=== PATIENT | female | born 1975 | race Caucasian/White ===

== ENCOUNTER 2020-01-02 05:07 | Emergency (ER) | payer MEDICAID ==
[~2020-01-02] VITALS: Ht 175.3 cm; Wt 63.6 kg
[2020-01-02 05:12] VITALS: BP 115/75
[2020-01-02] MEDS ORDERED: acetaminophen 325mg tablet PO ONE (06:15)
== END 2020-01-02 06:30 | disposition home or self-care (01) ==
LOC: ER 05:08
DX: S16.1XXA Strain of muscle, fascia and tendon at neck level, initial encounter (principal); S00.81XA Abrasion of other part of head, initial encounter; F79 Unspecified intellectual disabilities; F20.9 Schizophrenia, unspecified; W06.XXXA Fall from bed, initial encounter; Y93.89 Activity, other specified; Y92.89 Other specified places as the place of occurrence of the external cause; Y99.8 Other external cause status
CPT/HCPCS: 70450; 72125; 99285

== ENCOUNTER 2021-02-22 18:12 | Emergency (ER) | payer MEDICAID ==
[~2021-02-22] VITALS: Ht 167.6 cm; Wt 65.6 kg
[2021-02-22 18:15] VITALS: BP 163/54
[2021-02-22] MEDS ORDERED: TETanus/Pertussis (Acell)/Diphther VAC/PF (Tdap-Adult) 0.5ml syringe IMVAC ONE (18:20)
[2021-02-22] MEDS ORDERED: LIDOcaine 1% w/epiNEPHrine 1:200,000 30ml vial IJ ONE (20:35)
[2021-02-22] MEDS ORDERED: LIDOcaine 1% W/epiNEPHrine 1:200,000 10ml vial IJ ONE (20:35)
[2021-02-22] MEDS ORDERED: bacitracin 15gm ointment TP ONE (20:35)
[2021-02-22] MEDS ORDERED: CEPH250T PO (20:55)
== END 2021-02-22 21:15 | disposition home or self-care (01) ==
LOC: ER 18:12
DX: L03.116 Cellulitis of left lower limb (principal); F20.9 Schizophrenia, unspecified
CPT/HCPCS: 73630; 90715; 99283

== ENCOUNTER 2022-02-09 02:23 | Emergency (ER) | payer MEDICAID ==
[~2022-02-09] VITALS: Ht 152.4 cm; Wt 77.4 kg
[2022-02-09 04:10] LABS: BASOPHILS % (AUTO) 0.6 % (0-1); EOSINOPHILS # (AUTO) 0.1 X10'3 (0-0.9); EOSINOPHILS % (AUTO) 1.3 % (0-6); HEMATOCRIT 39.2 % (35.0-45.0); LYMPHOCYTES # (AUTO) 1.3 X10'3 (1.1-4.8); LYMPHOCYTES % (AUTO) 16.5 % (21-51); MEAN CORPUSCULAR HEMOGLOBIN 30.2 PG (27.0-31.0); MEAN CORPUSCULAR HGB CONC 33.1 g/dL (33.0-36.5); MEAN CORPUSCULAR VOLUME 91.3 FL (78-98); MEAN PLATELET VOLUME 9.7 FL (7.4-10.4); MONOCYTES # (AUTO) 0.5 X10'3 (0-0.9); MONOCYTES % (AUTO) 5.7 % (2-12); NEUTROPHILS % (AUTO) 75.9 % (42-75); PLATELET COUNT 152 X10'3 (140-440); RED CELL DISTRIBUTION WIDTH 12.7 % (11.5-14.5); WHITE BLOOD COUNT 7.9 X10'3 (4.5-11.0)
[2022-02-09 04:11] LABS: URINE HCG NEGATIVE (NEG)
[2022-02-09 04:24] LABS: ALANINE AMINOTRANSFERASE 25 U/L (12-78); ALBUMIN 3.9 G/DL (3.4-5.0); ALKALINE PHOSPHATASE 63 IU/L (46-116); ANION GAP 7 (8-16); ASPARTATE AMINO TRANSFERASE 18 U/L (10-37); BILIRUBIN,TOTAL 0.2 MG/DL (0.1-1.0); BLOOD UREA NITROGEN 14 MG/DL (7-18); BUN/CREATININE RATIO 23.7 (6.6-38.0); CALCIUM 9.7 MG/DL (8.5-10.1); CHLORIDE 103 MMOL/L (99-107); CREATININE 0.59 MG/DL (0.40-0.90); GLUCOSE 104 MG/DL (70-104); POTASSIUM 3.9 MMOL/L (3.5-5.1); SODIUM 141 MMOL/L (135-145); TOTAL CARBON DIOXIDE 30.9 MMOL/L (24-32); TOTAL PROTEIN 7.8 G/DL (6.4-8.2); eGFR > 90 ML/MIN
[2022-02-09 04:27] LABS: URINE AMPHETAMINE SCREEN NEGATIVE (Neg); URINE BARBITUATE SCREEN NEGATIVE (Neg); URINE BENZODIAZEPINES SCREEN NEGATIVE (Neg); URINE CANNABINOID SCREEN NEGATIVE (Neg); URINE COCAINE SCREEN NEGATIVE (Neg); URINE METHADONE SCREEN NEGATIVE (Neg); URINE OPIATE SCREEN NEGATIVE (Neg); URINE PHENCYCLIDINE SCREEN NEGATIVE (Neg)
[2022-02-09 04:33] LABS: ETHANOL < 0.010 GM/DL (0.0-0.010)
--- NOTE | 2022-02-09 04:44 | NUR ---
Pt reluctant to believe it is 0445 she is in the hallway hollaring and being beligerant with staff. Staff trying to convince her that it this time and she said she wants to leave. She refuses to stay in her room. Pt placed into her room and sitter placed at doorway. She is standing in the corner.
[2022-02-09] MEDS ORDERED: LORazepam 2 mg/ml vial IM ONE ×3 (04:50→16:40)
[2022-02-09] MEDS ORDERED: diphenhydrAMINE 50 mg/ml inj IM ONE (04:50)
[2022-02-09] MEDS ORDERED: haloperidol lactate 5mg/ml inj IM ONE ×3 (04:50→16:40)
--- NOTE | 2022-02-09 05:54 | NUR ---
faxed records to [facility]
[2022-02-09 06:34] LABS: CLARITY,URINE CLEAR (Clear); COLOR,URINE YELLOW (Yellow); GLUCOSE, URINE NEGATIVE (Neg); KETONES,URINE NEGATIVE (Neg); LEUKOCYTE ESTERASE ,URINE NEGATIVE (Neg); NITRITES, URINE NEGATIVE (Neg); OCCULT BLOOD,URINE NEGATIVE (Neg); PH,URINE 6.5 (4.8-8.0); PROTEIN,URINE NEGATIVE (Neg); UROBILINOGEN,URINE 0.2 E.U/dL (0.2-1.0)
--- NOTE | 2022-02-09 06:39 | NUR ---
tech moved pt over [facility] to [facility], tech placed pt on vitals machine. 126/86, HR 78, SPO 93%
--- NOTE | 2022-02-09 06:40 | NUR ---
Pt. is calm now and all restraints removed. pt. transfered to bed bed 22.
[2022-02-09 06:42] LABS: UA COLLECTION TYPE CLN CATCH MIDSTREAM
--- NOTE | 2022-02-09 06:53 | NUR ---
TECH INVENTORIED PT BELONGINGS AND PLACED THEM IN ROOM 27 FOR SAFE KEEPING, NO VALUABLES WERE PLACED IN THE REGISTRATION SAFE.
--- NOTE | 2022-02-09 07:00 | NUR ---
Pt. asleep on left side. Respirations evena and unlabored at 18.
--- NOTE | 2022-02-09 08:17 | NUR ---
tech faxed for a late tray for pt [id number]
--- NOTE | 2022-02-09 08:26 | NUR ---
Pt. awake and drinking coffee and eating jello.
--- NOTE | 2022-02-09 09:28 | NUR ---
RN received phone call from pt.'s boiling house oiler Stewart ([phone]). Pt. lives at [facility] in [place]. Per Stewart, pt.'s behavior has become increasingly eratic for the past two weeks. Pt.'s PO medications were being reduced in order to restart pt. on Invega Susteina injections by her mental health provider. Per Stewart, pt. awoke at 01:20 and began yelling and screaming at staff and threatening to kill herself and others and throwing things and so [employer] was called and pt. brought to [facility].
--- NOTE | 2022-02-09 09:32 | NUR ---
RN awaiting fax from pt.'s warehouse laborer Stewart regarding medication reconcilation.
--- NOTE | 2022-02-09 10:30 | NUR ---
RN contacted pt.'s longterm and requested her soft cervical collar be brought in for pt. to wear while hospitalized, RN informed that it would eventually be brought in.
[2022-02-09] MEDS ORDERED: MULT-1085 PO (10:49)
[2022-02-09] MEDS ORDERED: MONT-40 PO (10:49)
[2022-02-09] MEDS ORDERED: LORA2TAB96 PO ×2 (10:49)
[2022-02-09] MEDS ORDERED: FLUV100T21 PO (10:49)
[2022-02-09] MEDS ORDERED: ACET-890 PO (10:49)
[2022-02-09] MEDS ORDERED: BISA10SU11 RC (10:49)
[2022-02-09] MEDS ORDERED: HONE44PA TOP (10:49)
[2022-02-09] MEDS ORDERED: DOCU100C40 PO (10:49)
[2022-02-09] MEDS ORDERED: LAMO200T2 PO (10:49)
[2022-02-09] MEDS ORDERED: PROT480P PO (10:49)
[2022-02-09] MEDS ORDERED: ACET-1025 PO (10:49)
[2022-02-09] MEDS ORDERED: SIMV-342 PO (10:49)
[2022-02-09] MEDS ORDERED: MELA5TAB14 PO (10:49)
[2022-02-09] MEDS ORDERED: IBUP-1984 PO (10:49)
[2022-02-09] MEDS ORDERED: POLY17PO10 PO (10:49)
[2022-02-09] MEDS ORDERED: MAGN400O6 PO (10:49)
[2022-02-09] MEDS ORDERED: ALBU18HF2 INH (10:49)
[2022-02-09] MEDS ORDERED: ACET-896 PO (10:49)
[2022-02-09] MEDS ORDERED: ZINC113C10 TOP (10:49)
[2022-02-09] MEDS ORDERED: ASCO500T19 PO (10:49)
[2022-02-09] MEDS ORDERED: [UNRECOGNIZED DRUG - CODE] PO (10:49)
[2022-02-09] MEDS ORDERED: FERR325T28 PO (10:49)
[2022-02-09] MEDS ORDERED: LACT1CAP65 PO (10:49)
[2022-02-09] MEDS ORDERED: CARB15DR91 EACH EAR (10:49)
[2022-02-09] MEDS ORDERED: TRAZ-251 PO (10:49)
[2022-02-09] MEDS ORDERED: SENN8.6T19 PO (10:49)
[2022-02-09] MEDS ORDERED: UMEC1DIS (10:49)
[2022-02-09] MEDS ORDERED: BENZ2TAB65 PO (10:49)
[2022-02-09] MEDS ORDERED: VORT5TAB PO (10:49)
[2022-02-09] MEDS ORDERED: QUET-1 PO (10:49)
[2022-02-09] MEDS ORDERED: QUET300T2 PO (10:49)
--- NOTE | 2022-02-09 11:11 | NUR ---
med rec completed and faxed to pharmacy
[2022-02-09] MEDS ORDERED: guaiFENesin 200 MG/10 ML oral syrup UD cup PO PRN (11:30)
[2022-02-09] MEDS ORDERED: carbamide peroxide 15ml bottle EACH EAR PRN (11:30)
[2022-02-09] MEDS ORDERED: ACET-2006 PO (11:32)
[2022-02-09] MEDS ORDERED: nicotine 21mg patch - 24 hr TD ONE (11:35)
[2022-02-09] MEDS ORDERED: LORazepam 1 MG tablet PO PRN (12:00)
[2022-02-09] MEDS ORDERED: albuterol 2.5 MG/3 ML nebule NEB PRN (12:00)
[2022-02-09] MEDS ORDERED: zinc oxide ointment 30gm tube TP PRN (12:50)
[2022-02-09] MEDS: JUVEN Shake w/Arg/Glut/Ca2+Bmb (Juven 19.3gm) pkt 240ml PO SCH ×2 (13:00→18:11)
[2022-02-09] MEDS ORDERED: JUVEN Shake w/Arg/Glut/Ca2+Bmb (Juven 19.3gm) pkt 240ml PO SCH (13:00)
[2022-02-09] MEDS: quetiapine 100mg tablet PO SCH (13:05)
--- NOTE | 2022-02-09 13:30 | NUR ---
Wound care done on pt.'s left cheek wound and left great toe. Scant bloody drainage noted. Toe left open to air and cheek covered with gauze and bandaid.
[2022-02-09] MEDS: LORazepam 1 MG tablet PO PRN (14:27)
--- NOTE | 2022-02-09 14:35 | NUR ---
Pt. becoming agitated, stating, "I want out of here! I want to smoke a cigarette!" (Pt. already given nicotine patch 21mg). Pt. given PRN Ativan 2mg po.
--- NOTE | 2022-02-09 15:18 | NUR ---
RN informed by [facility] social service director that pt. will be discharged back to [facility]. RN called [facility] and spoke with Donnie and was informed that [facility] will not except the pt. back due to pt.'s threats against other patients at the facility. RN updated [facility] social service director.
--- NOTE | 2022-02-09 19:04 | NUR ---
The patient is up and restless. She is one to one with the staff. She is easily agitated. She is tryign to leave the unit and go out and smoke.
[2022-02-09] MEDS: ferrous sulfate 325mg tablet PO SCH (19:45)
[2022-02-09] MEDS: LORazepam 1 MG tablet PO SCH (19:45)
[2022-02-09] MEDS: sennosides 8.6mg tablet PO SCH (19:45)
[2022-02-09] MEDS: benztropine 1mg tablet PO SCH (19:45)
[2022-02-09] MEDS ORDERED: docusate sod 100mg capsule PO SCH (20:00)
[2022-02-09] MEDS: docusate sod 250mg capsule PO SCH ×2 (20:00→20:08)
[2022-02-09] MEDS: ascorbic acid 500mg tablet PO SCH (20:08)
[2022-02-09] MEDS: Melatonin 3mg tablet PO SCH (20:08)
[2022-02-09] MEDS: vortioxetine HBr tablet 5 MG TABLET PO SCH (20:09)
[2022-02-09] MEDS: traZODone 50mg tablet PO SCH (20:09)
[2022-02-09] MEDS: polyethylene glycol 3350 17gm powd pack PO SCH (20:10)
[2022-02-09] MEDS: montelukast 10mg tablet PO SCH (20:10)
[2022-02-09] MEDS: lamoTRIgine 100mg tablet PO SCH (20:10)
[2022-02-09] MEDS: quetiapine fumarate ER 300mg tablet PO SCH (20:11)
[2022-02-09] MEDS: fluvoxamine 25 MG tablet PO SCH (20:12)
--- NOTE | 2022-02-09 20:42 | NUR ---
The patient currently resting on his bed.
--- NOTE | 2022-02-09 21:35 | NUR ---
The patient appears to be sleeping
--- NOTE | 2022-02-09 22:52 | NUR ---
The patient appears to be sleeping
--- NOTE | 2022-02-10 00:33 | NUR ---
The patient appears to be sleeping
--- NOTE | 2022-02-10 02:55 | NUR ---
The patient appears to be sleeping
--- NOTE | 2022-02-10 03:18 | NUR ---
Patient assisted up to the bedside commode
[2022-02-10] MEDS ORDERED: LORazepam 2 mg/ml vial IM STA (05:43)
[2022-02-10] MEDS ORDERED: diphenhydrAMINE 50 mg/ml inj IM STA (05:43)
[2022-02-10] MEDS ORDERED: haloperidol lactate 5mg/ml inj IM STA (05:43)
--- NOTE | 2022-02-10 06:02 | NUR ---
The patient was increasingly agitated. She was unresponsive to redirection and swinging at staff. IM medications given for agitation
--- NOTE | 2022-02-10 06:30 | NUR ---
Pt is lying in bed awake.
[2022-02-10] MEDS ORDERED: Umeclidinium Brm/Vilanterol Tr (Anoro Ellipta 62.5-25 Mcg INH IH SCH (08:00)
[2022-02-10] MEDS ORDERED: HONEY TOP SCH (08:00)
[2022-02-10] MEDS: JUVEN Shake w/Arg/Glut/Ca2+Bmb (Juven 19.3gm) pkt 240ml PO SCH ×3 (08:00→18:00)
--- NOTE | 2022-02-10 08:09 | NUR ---
Pt awake, assisted to the commode, pt urinated. 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 Cleansed wound, applied dry dressing. Pt had blood in her hair and all over her scrub top, appled shampoo shower cap, changed pt's top.
--- NOTE | 2022-02-10 08:41 | NUR ---
Pt's hair brushed and braided by tech. Pt moved to bed 23.
[2022-02-10] MEDS: vortioxetine HBr tablet 5 MG TABLET PO SCH ×2 (08:42→19:56)
[2022-02-10] MEDS: LORazepam 1 MG tablet PO SCH ×2 (08:43→19:56)
[2022-02-10] MEDS: lactobacillus rhamnosus 10,000 MMU CELLS/CAPSULE PO SCH (08:44)
[2022-02-10] MEDS: multivitamins, therapeutics tablet PO SCH (08:44)
[2022-02-10] MEDS: quetiapine 100mg tablet PO SCH (08:44)
[2022-02-10] MEDS: ferrous sulfate 325mg tablet PO SCH ×2 (08:44→19:57)
[2022-02-10] MEDS: ascorbic acid 500mg tablet PO SCH ×2 (08:44→19:57)
[2022-02-10] MEDS: atorvastatin 10mg tablet PO SCH (08:44)
[2022-02-10] MEDS: sennosides 8.6mg tablet PO SCH ×2 (08:44→19:57)
[2022-02-10] MEDS: benztropine 1mg tablet PO SCH ×2 (08:44→19:56)
[2022-02-10] MEDS: nicotine 21mg patch - 24 hr TD SCH (08:54)
--- NOTE | 2022-02-10 09:00 | NUR ---
Pt has difficulty holding her head up, she spills food and drinks frequently for this reason. Modified diet order to request sippy cups and mech soft chopped food.
--- NOTE | 2022-02-10 09:32 | NUR ---
Pt is sitting quietly on the side of her bed.
--- NOTE | 2022-02-10 09:45 | NUR ---
Tech assisted with changing into clean scrubs. Pt wears incontinent briefs.
--- NOTE | 2022-02-10 09:49 | NUR ---
Left a message for hospital social media sr strategy manager, order obtained for social media sr strategy manager consult.
--- NOTE | 2022-02-10 09:58 | NUR ---
Spoke with Ariana from manager social work. She has already been notified and has contacted [facility] about this case.
--- NOTE | 2022-02-10 10:23 | NUR ---
Pt is lying quietly in bed on her left side with HOB up 30 degrees, pt appears to be sleeping.
--- NOTE | 2022-02-10 11:10 | NUR ---
Pt claiming that she didn't eat breakfast even though she did. Pt states we are starving her. Kitchen brought pt's Weston shake late, provided this to the pt. Pt stated, "call a nurse...to go to the cafeteria...you're starving me!" Offered pt crackers and reassured her that lunch would be here soon. Pt keeps repeating she wants someone to go to the cafeteria. Pt keeps standing up from the bed unassisted. Pt states she needs a wheelchair although pt has been able to stand for transfers to the commode and to ambulate short distances with assist.
--- NOTE | 2022-02-10 11:30 | NUR ---
Received a phone call from Donnie at [facility] asking about the status of the patient. He was informed that pt is not on a mental health hold but her facility will not take her back. He states that he will get in touch with Reynold from [facility] and get back to us.
[2022-02-10] MEDS: ibuprofen 200mg tablet PO PRN (11:43)
--- NOTE | 2022-02-10 11:43 | NUR ---
Pt c/o pain "all over" and was given PRN Motrin 600 mg.
--- NOTE | 2022-02-10 11:52 | NUR ---
Pt's inhaler from home not available, order was D/c'd and changed to routine nebulizer treatments.
--- NOTE | 2022-02-10 12:22 | NUR ---
Relieved nurse for a break, staff provided minimal assistance as pt. used a walker to walk per her request to "Exercise." Pt. is sitting up eating lunch at this time, set-up help required.
--- NOTE | 2022-02-10 13:00 | NUR ---
Assisted pt to bathroom using FWW. Assisted pt with toileting and brief change. Pt is asking for more food. Pt wants a cigarette, pt wants to go to the cafeteria. Pt is requesting Ativan.
--- NOTE | 2022-02-10 13:23 | NUR ---
Pt is lying quietly in bed, Ativan was not given.
--- NOTE | 2022-02-10 15:58 | NUR ---
Assisted pt to the bathroom and back. Pt stating "too much medications...I don't know what I did...I'm sorry if I hit someone." Pt is expressing remorse for her behavior. Pt repeats "too much medications...hungry all the time."
--- NOTE | 2022-02-10 16:00 | NUR ---
Provided pt with a snack of reyna crackers and Jello.
[2022-02-10] MEDS: ipratropium/albuterol 3ml nebule IH SCH ×2 (16:14→20:32)
--- NOTE | 2022-02-10 16:26 | NUR ---
Pt has forgotten that she ate lunch as well as breakfast. Pt repeatedly requests to walk to the cafeteria. Pt asked for some coffee and was provided a cup of decaf coffee.
--- NOTE | 2022-02-10 17:03 | NUR ---
Pt constantly stands up from the bed without assistance, needs frequent redirection. Pt keeps saying she is hungry and wants to go to the cafeteria.
--- NOTE | 2022-02-10 17:20 | NUR ---
Pt is lying in bed watching an animal documentary.
[2022-02-10] MEDS: acetaminophen 325mg tablet PO PRN (17:30)
--- NOTE | 2022-02-10 17:34 | NUR ---
Pt c/o 10/02 generalized pain and was medicated with PRN Tylenol 975 mg.
--- NOTE | 2022-02-10 17:59 | NUR ---
Pt removed the dressing on her left cheek. Applied a new dressing.
--- NOTE | 2022-02-10 18:43 | NUR ---
helped pt change shirt and brush hair, gave sandwich after dinner tray because she stated she was still hungry.
--- NOTE | 2022-02-10 18:54 | NUR ---
took ot on small walk around the floor with walker
--- NOTE | 2022-02-10 19:07 | NUR ---
Patient is being assisted to the bathroom by the STAFF RESEARCH SCIENTIST. She is ambulatory with the use of a walker.
--- NOTE | 2022-02-10 19:45 | NUR ---
Patient has been ambulated on the unit many times. She is disoriented when it comes to time of day. The patient tells this repairer typewriter that it is breakfast time. She hears it in her head and over the intercom. The patient will not listen to reason. She can be redirected with some effort.
[2022-02-10] MEDS: quetiapine fumarate ER 300mg tablet PO SCH (20:10)
[2022-02-10] MEDS: fluvoxamine 25 MG tablet PO SCH (20:10)
[2022-02-10] MEDS: docusate sod 250mg capsule PO SCH (20:10)
[2022-02-10] MEDS: montelukast 10mg tablet PO SCH (20:11)
[2022-02-10] MEDS: lamoTRIgine 100mg tablet PO SCH (20:11)
[2022-02-10] MEDS: traZODone 50mg tablet PO SCH (20:14)
[2022-02-10] MEDS: Melatonin 3mg tablet PO SCH (20:18)
--- NOTE | 2022-02-10 20:45 | NUR ---
This patient is compliant with medications. Applesauce was used to effect the consumption with medications.
--- NOTE | 2022-02-10 20:49 | NUR ---
Patient has once again removed her bandaging from face. She remains mostly uncooperative.
[2022-02-10] MEDS: polyethylene glycol 3350 17gm powd pack PO SCH (21:16)
--- NOTE | 2022-02-10 21:16 | NUR ---
made patient coffee (decaf) and turned out lights to get her ready for bed
[2022-02-10] MEDS ORDERED: LORazepam 2 mg/ml vial IM ONE (21:35)
[2022-02-10] MEDS ORDERED: haloperidol lactate 5mg/ml inj IM ONE (21:35)
--- NOTE | 2022-02-10 21:43 | NUR ---
Security is standing by, patient moved back to bed. Patient is resistand and screaming at staff. ER MD advised. Ativan and Haldol are ordered, awaiting Pharmacy to verify.
--- NOTE | 2022-02-10 22:30 | NUR ---
Haldol was given IM, this patient starting to rest, IM Ativan held for now.
--- NOTE | 2022-02-10 22:57 | NUR ---
Patient is sleeping quietly on her right side.
--- NOTE | 2022-02-11 00:10 | NUR ---
Patient is sleeping quietly on her right side. No distress.
--- NOTE | 2022-02-11 02:00 | NUR ---
Patient has been yelling and intrusive. She has postured against staff and security too.
[2022-02-11] MEDS ORDERED: diphenhydrAMINE 50 mg/ml inj IM ONE ×2 (02:10→19:40)
[2022-02-11] MEDS: ipratropium/albuterol 3ml nebule IH SCH (02:12)
[2022-02-11] MEDS ORDERED: haloperidol lactate 5mg/ml inj IM ONE ×2 (03:20→23:00)
--- NOTE | 2022-02-11 03:44 | NUR ---
This patient has been yelling over the past hour and a half. She uses profanity against staff. Patient defied security. This patient kicked FERMENTER in her chest. The patient was given an additional Haldol 10 mg IM. Patient doed not redirect. Additional Ativan 2mg and Benadryl was given IM a couple of hours ago without benefit. Patient has also torn off her facial bandage.
--- NOTE | 2022-02-11 04:13 | NUR ---
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 Patient picked at her facial wound. Patient caused blood to drip onto the floor. Patient voided in her scrubs and in commode. Patient was cleaned, wound re-dressed. Placed in a fresh bed. She continues to kick and be uncooperative.
[2022-02-11] MEDS ORDERED: ketamine 50 mg/ml 10ml vial IM ONE (04:20)
--- NOTE | 2022-02-11 04:40 | NUR ---
IM Ketamine has been given. Patient is calming to some degree. Per nurse discharge planner this patient will be transfered to the main ER for probable IV medications. This patient is very resistant to IM and PO medications. In the main ED Dexmedetomidine will be considered for a IV drip.
--- NOTE | 2022-02-11 05:00 | NUR ---
Lj cuellar in ED - 02/11/22 at 0501 by CECILY Patient transfered to the main ED, room `4.
--- NOTE | 2022-02-11 05:00 | NUR ---
Patient transfered to the main ED, room `4.
--- NOTE | 2022-02-11 05:01 | NUR ---
Patient transfered to the main ED room 14.
[2022-02-11] MEDS: DEXMEDETOMIDINE IN 0.9 % NACL 50 ML IV SCH ×3 (05:22→19:12)
--- NOTE | 2022-02-11 05:29 | NUR ---
Sitter at the Bedside. The IV was started and precedex initiated. She continues to scream.
--- NOTE | 2022-02-11 06:30 | NUR ---
Pt's right leg released and is not longer restrained.
[2022-02-11] MEDS: sennosides 8.6mg tablet PO SCH ×2 (07:17→21:14)
[2022-02-11] MEDS: atorvastatin 10mg tablet PO SCH (07:17)
[2022-02-11] MEDS: ferrous sulfate 325mg tablet PO SCH ×2 (07:17→21:13)
[2022-02-11] MEDS: nicotine 21mg patch - 24 hr TD SCH (07:17)
[2022-02-11] MEDS: ascorbic acid 500mg tablet PO SCH ×2 (07:17→21:13)
[2022-02-11] MEDS: multivitamins, therapeutics tablet PO SCH (07:17)
[2022-02-11] MEDS: lactobacillus rhamnosus 10,000 MMU CELLS/CAPSULE PO SCH (07:17)
[2022-02-11] MEDS: LORazepam 1 MG tablet PO SCH ×2 (07:17→21:13)
[2022-02-11] MEDS ORDERED: LORazepam 2 mg/ml vial IV ONE ×2 (07:35→17:40)
[2022-02-11] MEDS: JUVEN Shake w/Arg/Glut/Ca2+Bmb (Juven 19.3gm) pkt 240ml PO SCH ×3 (08:00→18:00)
[2022-02-11] MEDS: benztropine 1mg tablet PO SCH ×2 (08:00→22:27)
[2022-02-11] MEDS: quetiapine 100mg tablet PO SCH (08:00)
[2022-02-11] MEDS: vortioxetine HBr tablet 5 MG TABLET PO SCH ×2 (09:00→22:12)
--- NOTE | 2022-02-11 11:00 | NUR ---
Pt's both legs are not restrained.
--- NOTE | 2022-02-11 13:00 | NUR ---
Pt's left wrist is now released and no longer restrained
--- NOTE | 2022-02-11 17:01 | NUR ---
Pt agitated and started kicking bedside sitter and attempting to get off bed. Pt now has restraints on bilateral arms and left leg
[2022-02-11] MEDS ORDERED: OLANZapine **IM** 10 mg inj. IM ONE (18:25)
--- NOTE | 2022-02-11 20:40 | NUR ---
RN had a talk with pt regarding screaming and yellig for hours. RN removed pt from 3 point restraints to see if she can comply. Tech helped pt with commode
[2022-02-11] MEDS: Melatonin 3mg tablet PO SCH (21:13)
[2022-02-11] MEDS: traZODone 50mg tablet PO SCH (21:14)
[2022-02-11] MEDS: montelukast 10mg tablet PO SCH (21:14)
[2022-02-11] MEDS: quetiapine fumarate ER 300mg tablet PO SCH (21:20)
[2022-02-11] MEDS: polyethylene glycol 3350 17gm powd pack PO SCH (21:30)
--- NOTE | 2022-02-11 21:55 | NUR ---
Pt is back on 3 pt restraint after repeatedly wanting to leave the room looking for her walker. Pt was resisting to any boundary setting from staff
[2022-02-11] MEDS ORDERED: LORazepam 2 mg/ml vial IM ONE (22:10)
[2022-02-11] MEDS: docusate sod 250mg capsule PO SCH (22:11)
[2022-02-11] MEDS: fluvoxamine 25 MG tablet PO SCH (22:13)
[2022-02-11] MEDS: lamoTRIgine 100mg tablet PO SCH (22:27)
[2022-02-11 22:32] LABS: BASOPHILS % (AUTO) 0.3 % (0-1); EOSINOPHILS # (AUTO) 0.1 X10'3 (0-0.9); EOSINOPHILS % (AUTO) 1.8 % (0-6); HEMATOCRIT 38.9 % (35.0-45.0); HEMOGLOBIN 12.9 g/dl (12.0-16.0); LYMPHOCYTES # (AUTO) 1.9 X10'3 (1.1-4.8); LYMPHOCYTES % (AUTO) 22.2 % (21-51); MEAN CORPUSCULAR HEMOGLOBIN 30.4 PG (27.0-31.0); MEAN CORPUSCULAR HGB CONC 33.3 g/dL (33.0-36.5); MEAN CORPUSCULAR VOLUME 91.5 FL (78-98); MEAN PLATELET VOLUME 9.2 FL (7.4-10.4); MONOCYTES # (AUTO) 0.7 X10'3 (0-0.9); MONOCYTES % (AUTO) 8.3 % (2-12); NEUTROPHILS # (AUTO) 5.6 X10'3 (1.8-7.7); NEUTROPHILS % (AUTO) 67.4 % (42-75); PLATELET COUNT 141 X10'3 (140-440); RED BLOOD COUNT 4.25 X10'6 (4.20-5.60); RED CELL DISTRIBUTION WIDTH 12.6 % (11.5-14.5); WHITE BLOOD COUNT 8.3 X10'3 (4.5-11.0)
[2022-02-11 22:50] LABS: ALANINE AMINOTRANSFERASE 43 U/L (12-78); ALBUMIN 3.5 G/DL (3.4-5.0); ALKALINE PHOSPHATASE 70 IU/L (46-116); ANION GAP 10 (8-16); ASPARTATE AMINO TRANSFERASE 46 U/L (10-37); BILIRUBIN,TOTAL 0.2 MG/DL (0.1-1.0); BLOOD UREA NITROGEN 23 MG/DL (7-18); BUN/CREATININE RATIO 32.4 (6.6-38.0); CALCIUM 9.2 MG/DL (8.5-10.1); CHLORIDE 105 MMOL/L (99-107); CREATININE 0.71 MG/DL (0.40-0.90); GLUCOSE 110 MG/DL (70-104); POTASSIUM 3.9 MMOL/L (3.5-5.1); SODIUM 144 MMOL/L (135-145); TOTAL CARBON DIOXIDE 29.4 MMOL/L (24-32); TOTAL PROTEIN 6.9 G/DL (6.4-8.2); eGFR 88 ML/MIN
[2022-02-11 23:05] LABS: CREATINE KINASE 1905 U/L (26-192)
--- NOTE | 2022-02-11 23:11 | NUR ---
RN set boundary with pt: 1. no screaming. 2. do not leave the room. Pt said she will comply with the terms. 3 point restraint removed.
[2022-02-11] MEDS ORDERED: normal saline 1000ML IV soln IVB ONE (23:30)
--- NOTE | 2022-02-12 | NUR ---
Offered pt shashi gu. She fell asleep midway eating the sandwich
--- NOTE | 2022-02-12 07:00 | NUR ---
Spoke with Dr. Mcallister regarding patient needing to be admitted due to precedex drip ordered. Dr. Mcallister stated that he would like to see patient at baseline before renewing order. Precedex order discontinued. Dr. Mcallister placed order for PO haldol. Patient is currently out of restraints and resting with eyes closed. Respirations are even and unlabored.
--- NOTE | 2022-02-12 07:23 | NUR ---
Patient resting comfortably on back, does not appear to be in any distress. Patient is breathing eveningly and unlabored on her back.
[2022-02-12] MEDS: JUVEN Shake w/Arg/Glut/Ca2+Bmb (Juven 19.3gm) pkt 240ml PO SCH ×3 (08:44→18:00)
[2022-02-12] MEDS: atorvastatin 10mg tablet PO SCH (08:46)
[2022-02-12] MEDS: ascorbic acid 500mg tablet PO SCH ×2 (08:46→19:08)
[2022-02-12] MEDS: nicotine 21mg patch - 24 hr TD SCH (08:46)
[2022-02-12] MEDS: lactobacillus rhamnosus 10,000 MMU CELLS/CAPSULE PO SCH (08:47)
[2022-02-12] MEDS: multivitamins, therapeutics tablet PO SCH (08:47)
[2022-02-12] MEDS: ferrous sulfate 325mg tablet PO SCH ×2 (08:48→19:11)
[2022-02-12] MEDS: benztropine 1mg tablet PO SCH ×2 (08:48→19:11)
[2022-02-12] MEDS: LORazepam 1 MG tablet PO SCH ×2 (08:48→19:10)
[2022-02-12] MEDS: sennosides 8.6mg tablet PO SCH ×2 (08:49→19:11)
[2022-02-12] MEDS: quetiapine 100mg tablet PO SCH (08:49)
[2022-02-12] MEDS: haloperidol 5mg tablet PO SCH ×2 (08:49→19:11)
--- NOTE | 2022-02-12 09:15 | NUR ---
Received pt in bed 24 from ER, report received from Azeb. Patient is drinking coffee, she is difficult to understand. Patient gave consent to talk to Cait about her. Patient is now talking to Cait.
--- NOTE | 2022-02-12 09:30 | NUR ---
Patient transfered back to bed 24 in OF, SBAR report given to Demetria RN. Bedside commode set by bedside and patient given a walker to ambulate.
[2022-02-12] MEDS: vortioxetine HBr tablet 5 MG TABLET PO SCH ×2 (09:53→19:10)
--- NOTE | 2022-02-12 10:18 | NUR ---
Patient is very active requiring 1:1 atttention from SOUND CONTROLLER. Patient is utilizing restroom now. Hair is being brushed and put into pony tail per patient request.
[2022-02-12] MEDS: LORazepam 1 MG tablet PO PRN (11:01)
--- NOTE | 2022-02-12 11:07 | NUR ---
Patient becoming agitated because she has no food to eat. Snacks given to patient. Administered 2 mg of Ativan for agitation.
--- NOTE | 2022-02-12 11:09 | NUR ---
Patient is in need of Donation Specialist consult due to lack of housing. Patient is [employer] client.
--- NOTE | 2022-02-12 11:43 | NUR ---
Patient is demanding food and agitated, even though she was given snacks. Patient also gets agitated about not being able to smoke, patch was applied in a.m. She believes someone is going to steal her walker. Patient remains on 1:1.
--- NOTE | 2022-02-12 12:58 | NUR ---
Patient attempting to get out of bed, kicking DIRECTOR HR COMMUNICATIONS. notified, no orders at this time. Patient yelling with unsuccesful redirection.
--- NOTE | 2022-02-12 13:42 | NUR ---
Patient yelling and constantly wanting to leave her bed. Wheelchair provided for patient to sit in. She is quit for now.
--- NOTE | 2022-02-12 14:14 | NUR ---
Security at bedside due to patient yelling and getting out of bed, patient is not stable to walk.
--- NOTE | 2022-02-12 14:36 | NUR ---
Patient has had 7 cups of decafinated coffee, and is yelling at the top of her lungs for coffee. Two staff members are with patient, she is kicking CUSTOMER CARE ASSOCIATE, striking out and cursing at staff.
--- NOTE | 2022-02-12 15:21 | NUR ---
Patient picking at face, ripped bandage off, bleeding and wiping blood on staff. Patient yelling and unable to redirect. Patient is DTS/DTO. Patient placed in restraints at 15:20.
[2022-02-12] MEDS ORDERED: diphenhydrAMINE 50 mg/ml inj IM ONE (15:25)
[2022-02-12] MEDS ORDERED: LORazepam 2 mg/ml vial IM ONE (15:25)
[2022-02-12] MEDS ORDERED: haloperidol lactate 5mg/ml inj IM ONE (15:25)
--- NOTE | 2022-02-12 16:01 | NUR ---
Bandage on face was reapplied after she removed it and picked at her face. Patient continues to yell at top of her lungs. Patient in soft restraints.
--- NOTE | 2022-02-12 17:21 | NUR ---
Patient released from restraints. Going to the restroom.
--- NOTE | 2022-02-12 18:30 | NUR ---
Patient yelling insisting that it is morning and refusing to cooperate with staff. Patient constantly wanting coffee and food.
--- NOTE | 2022-02-12 19:00 | NUR ---
Patient given evening meds. Patient still yelling disturbing ther patients. Provider ordered 50mg Benadryl PO. Patient took medication and fell asleep.
[2022-02-12] MEDS: Melatonin 3mg tablet PO SCH (19:08)
[2022-02-12] MEDS: quetiapine fumarate ER 300mg tablet PO SCH (19:09)
[2022-02-12] MEDS: fluvoxamine 25 MG tablet PO SCH (19:09)
[2022-02-12] MEDS: montelukast 10mg tablet PO SCH (19:10)
[2022-02-12] MEDS: lamoTRIgine 100mg tablet PO SCH (19:10)
[2022-02-12] MEDS: docusate sod 250mg capsule PO SCH (19:10)
[2022-02-12] MEDS: traZODone 50mg tablet PO SCH (19:11)
[2022-02-12] MEDS: polyethylene glycol 3350 17gm powd pack PO SCH (19:27)
[2022-02-12] MEDS ORDERED: diphenhydrAMINE 25mg capsule PO ONE (19:40)
--- NOTE | 2022-02-13 00:21 | NUR ---
Patient laying down in bed, respiration non labored and even. appears to be sleeping at this time.
--- NOTE | 2022-02-13 02:48 | NUR ---
Patient woke up, used bedside commode with help from LOS and tech and went back to bed w/o further incidence.
[2022-02-13] MEDS ORDERED: LORazepam 2 mg/ml vial IV ONE ×2 (05:05→05:10)
[2022-02-13] MEDS ORDERED: OLANZapine 5mg rapidly disint. tablet PO ONE (05:35)
--- NOTE | 2022-02-13 05:38 | NUR ---
Patient woke up and began yelling for coffee and food. After explaining to the patient that there was no food and that breakfast was at 0800. Patient began hitting scratching staff and yelling over and over. Provider ordered ativan IV 1mg, Zyprexa 5mg PO. Patient also placed in 3 point restraints for patients safety and staff.
--- NOTE | 2022-02-13 06:07 | NUR ---
Patient asleep, restraints removed.
--- NOTE | 2022-02-13 06:54 | NUR ---
Patient has woke up and is yelling, "I want my food. The staff is eating my food." She is doing this repeatedly.
--- NOTE | 2022-02-13 07:45 | NUR ---
Patient scrathing at her facial wound making it bleed. Awaiting .
--- NOTE | 2022-02-13 08:06 | NUR ---
Patient placed in non-behavioral mittens for her safety. She continually picks and scratches her facial wounds.
[2022-02-13] MEDS: nicotine 21mg patch - 24 hr TD SCH (08:27)
[2022-02-13] MEDS: lactobacillus rhamnosus 10,000 MMU CELLS/CAPSULE PO SCH (08:28)
[2022-02-13] MEDS: atorvastatin 10mg tablet PO SCH (08:28)
[2022-02-13] MEDS: multivitamins, therapeutics tablet PO SCH (08:28)
[2022-02-13] MEDS: LORazepam 1 MG tablet PO SCH ×2 (08:28→20:11)
[2022-02-13] MEDS: ferrous sulfate 325mg tablet PO SCH ×2 (08:28→20:11)
[2022-02-13] MEDS: benztropine 1mg tablet PO SCH ×2 (08:28→20:11)
[2022-02-13] MEDS: haloperidol 5mg tablet PO SCH ×2 (08:28→20:11)
[2022-02-13] MEDS: quetiapine 100mg tablet PO SCH (08:28)
[2022-02-13] MEDS: vortioxetine HBr tablet 5 MG TABLET PO SCH ×2 (08:28→20:12)
[2022-02-13] MEDS: ascorbic acid 500mg tablet PO SCH ×2 (08:30→20:12)
[2022-02-13] MEDS: sennosides 8.6mg tablet PO SCH ×2 (08:30→20:11)
[2022-02-13] MEDS: JUVEN Shake w/Arg/Glut/Ca2+Bmb (Juven 19.3gm) pkt 240ml PO SCH ×3 (08:53→18:52)
--- NOTE | 2022-02-13 09:26 | NUR ---
Patient is finally quiet. She is lying on her bed with eyes closed. Not yet asleep.
--- NOTE | 2022-02-13 11:24 | NUR ---
Patient continues to sleep. No s/sx of distress.
--- NOTE | 2022-02-13 12:10 | NUR ---
Patient eating her lunch
--- NOTE | 2022-02-13 14:44 | NUR ---
Received call from [facility]. , and cell #[phone]. They requested packet be sent.
[2022-02-13] MEDS: LORazepam 1 MG tablet PO PRN (15:22)
--- NOTE | 2022-02-13 15:30 | NUR ---
Packet sent to [facility].
--- NOTE | 2022-02-13 16:30 | NUR ---
patient screaming loudly, "let me go, let me go," or, "it's 0830 in the morning, or you're starving me. All repeatedly. Patient has been given 2mg Ativan PO PRN with no effect.
[2022-02-13] MEDS: lamoTRIgine 100mg tablet PO SCH (20:10)
[2022-02-13] MEDS: quetiapine fumarate ER 300mg tablet PO SCH (20:12)
[2022-02-13] MEDS: traZODone 50mg tablet PO SCH (20:12)
[2022-02-13] MEDS: Melatonin 3mg tablet PO SCH (20:13)
[2022-02-13] MEDS: montelukast 10mg tablet PO SCH (20:13)
[2022-02-13] MEDS: fluvoxamine 25 MG tablet PO SCH (20:30)
[2022-02-13] MEDS: docusate sod 250mg capsule PO SCH (20:42)
[2022-02-13] MEDS: polyethylene glycol 3350 17gm powd pack PO SCH (20:43)
--- NOTE | 2022-02-13 21:57 | NUR ---
Pt is sleeping at this time. She has been restless most of shift. Repeatedly asking for coffee and saying it is 8:30 in the morning. Pt continually tries to get out of bed she is a fall risk so kept on LOS. Wound to left cheek cleansed with NS and covered with a clean dressing. Linen changed, new scrubs and depends. Pt up to BSC urinated large amount. Pt took HS meds after arguing it is 8:30 in morning and she should not be taking her bedtime medications.
--- NOTE | 2022-02-14 00:06 | NUR ---
Pt sleeping sitter at bedside.
--- NOTE | 2022-02-14 03:51 | NUR ---
Pt continues to sleep resp evena and unlabored.
--- NOTE | 2022-02-14 06:30 | NUR ---
Received pt. awake and very restless at the beginning of the shift. Pt. was constantly yelling out, "Let me out of this bed! I'm hungry!" Pt. is unable to walk r/t generalized weakness and requires a 1:1 sitter at bedside for safety precautions. Pt. is able to transfer to the cammode at bedside with assistance from staff, she does intermittently place herself on the floor at times, but is able to get back in bed with encouragement and assistance from staff. Per Noc RN, PRN Ativan was administered at approximately 0610 AM with some effectiveness.
--- NOTE | 2022-02-14 07:20 | NUR ---
Received an order from Dr. Mcallister for non-behavioral mitten restraints. Pt. is constantly picking at the wound on her left face when mittens are not in place, risking infection. Addendum: 02/14/22 at 0948 by WILY Pt. continuously picks at the dressing on the left side of her face. Soft mitten restraints were applied per order for non-behavioral restraint. Pt. does not object to the application of mittens and complies with staff placing them on her bilateral hands without objection. Pt's puse is WNL at bilateral wrists, sensation is present in bilateral hands, and capillary refill is WNL bilaterally. Pt's mittens are removed in order to eat and use the commode at bedside. Will continue to monitor closely.
[2022-02-14] MEDS: LORazepam 1 MG tablet PO SCH ×2 (08:00→19:31)
[2022-02-14] MEDS: JUVEN Shake w/Arg/Glut/Ca2+Bmb (Juven 19.3gm) pkt 240ml PO SCH ×3 (08:26→18:19)
--- NOTE | 2022-02-14 08:30 | NUR ---
Pt. sitting up eating breakfast in bed at this time with minimal assistance from staff. Mittens were removed for pt. to eat and replaced afterwards. Pt. was able to take her medications in applesauce. Addendum: 02/14/22 at 0906 by WILY Held pt's scheduled 2mg of Ativan per report from [facility] shift RN that medication was administered this morning at approximatly 0600 (however there was no documentation recorded and this nurse was unable to reach [facility] shift nurse via telephone to verify). Charge nurse made aware.
[2022-02-14] MEDS: lactobacillus rhamnosus 10,000 MMU CELLS/CAPSULE PO SCH (08:40)
[2022-02-14] MEDS: ferrous sulfate 325mg tablet PO SCH ×2 (08:40→19:32)
[2022-02-14] MEDS: haloperidol 5mg tablet PO SCH ×2 (08:40→19:32)
[2022-02-14] MEDS: atorvastatin 10mg tablet PO SCH (08:40)
[2022-02-14] MEDS: benztropine 1mg tablet PO SCH ×2 (08:40→19:31)
[2022-02-14] MEDS: ascorbic acid 500mg tablet PO SCH ×2 (08:41→19:32)
[2022-02-14] MEDS: quetiapine 100mg tablet PO SCH (08:41)
[2022-02-14] MEDS: sennosides 8.6mg tablet PO SCH ×2 (08:41→19:32)
[2022-02-14] MEDS: vortioxetine HBr tablet 5 MG TABLET PO SCH ×2 (08:41→19:31)
[2022-02-14] MEDS: multivitamins, therapeutics tablet PO SCH (08:41)
[2022-02-14] MEDS: nicotine 21mg patch - 24 hr TD SCH (08:41)
--- NOTE | 2022-02-14 09:20 | NUR ---
Soft non-behavioral restraint mittens were removed from pt's bilateral hands, however she continuously picks at the dressing on the left side of her face when this is done. Soft mitten restraints re -applied per order for non-behavioral restraint. Pt. continues to be cooperative with the placement of mitten restrants and holds out her hands willingly so they can be placed. Pt's puse is WNL at bilateral wrists, sensation is present in bilateral hands, and capillary refill is WNL bilaterally. Pt's mittens continue to be removed in order to eat and use the commode at bedside. Will continue to monitor closely.
--- NOTE | 2022-02-14 10:19 | NUR ---
Pt. is laying on her back sleeping at this time, rr are even and unlabored. Sitter is at bedside for safety precautions.
--- NOTE | 2022-02-14 11:20 | NUR ---
Soft non-behavioral restraint mittens were removed and reapplied to pt's bilateral hands. Pt. continues to intermittently pick at the dressing on the left side of her face when mittens removed. Pt. continues to be cooperative with the placement of mitten restrants and holds out her hands willingly so they can be placed. Pt's puse is WNL at bilateral wrists, sensation is present in bilateral hands, and capillary refill is WNL bilaterally. Pt's mittens continue to be removed in order to eat and use the commode at bedside. Will continue to monitor closely.
--- NOTE | 2022-02-14 12:26 | NUR ---
Pt. is sitting up at bedside eating with set-up assistance from Tech at this time. Mittens taken off while pt. eats, and Tech remains at bedside for safety precautions.
--- NOTE | 2022-02-14 12:53 | NUR ---
Per [facility] social security specialist, a facility will be coming to evaluate pt. on Sunday02/20/22, Addendum: 02/14/22 at 1254 by WILY For possible placement.
[2022-02-14] MEDS: ibuprofen 200mg tablet PO PRN (13:18)
--- NOTE | 2022-02-14 13:20 | NUR ---
Soft non-behavioral restraint mittens were removed and reapplied to pt's bilateral hands per Q 2 hr protocol. Pt. continues to intermittently pick at the dressing on the left side of her face when mittens are removed. Pt. continues to be cooperative with the placement of mitten restrants and actually requests that they be re-applied. Pt's puse is WNL at bilateral wrists, sensation is present in bilateral hands, and capillary refill is WNL bilaterally. Pt's mittens continue to be removed in order to eat and use the commode at bedside. Will continue to monitor closely, Tech remains with pt. at bedside.
--- NOTE | 2022-02-14 14:27 | NUR ---
Pt. is sitting up in her reclining chair at bedside, Tech remains at bedside r/t safety precautions.
--- NOTE | 2022-02-14 15:20 | NUR ---
Soft non-behavioral restraint mittens were removed and reapplied to pt's bilateral hands per Q 2 hr protocol. Pt. continues to intermittently pick at the dressing on the left side of her face when mittens are removed. Pt. continues to be cooperative with the placement of mitten and actually requests to have them on. Pt's puse is WNL at bilateral wrists, sensation is present in bilateral hands, and capillary refill is WNL bilaterally. Pt's mittens continue to be removed in order to eat and use the commode at bedside. Will continue to monitor closely, Tech remains with pt. at bedside.
--- NOTE | 2022-02-14 16:37 | NUR ---
Pt. is standing at bedside at this time and appears anxious and slightly agitated. She starts to cry loudly. PRN Ativan will be administered.
[2022-02-14] MEDS: LORazepam 1 MG tablet PO PRN (16:40)
--- NOTE | 2022-02-14 17:20 | NUR ---
Soft non-behavioral restraint mittens were removed and reapplied to pt's bilateral hands per Q 2 hr protocol. Pt. continues to intermittently pick at the dressing on the left side of her face when mittens are removed. Pt. continues to be cooperative with the placement of mittens. Pt's puse is WNL at bilateral wrists, sensation is present in bilateral hands, and capillary refill is WNL bilaterally. Pt's mittens continue to be removed in order to eat and use the commode at bedside. Will continue to monitor closely, Tech remains with pt. at bedside.
--- NOTE | 2022-02-14 17:55 | NUR ---
Pt. is stitting up n her reclining chair watching TV at this time, sitter is at bedside.
--- NOTE | 2022-02-14 19:15 | NUR ---
The patient is screaming at her one to one staff. She is refusing redirection.
[2022-02-14] MEDS: quetiapine fumarate ER 300mg tablet PO SCH (19:31)
[2022-02-14] MEDS: docusate sod 250mg capsule PO SCH (19:32)
[2022-02-14] MEDS: traZODone 50mg tablet PO SCH (19:32)
[2022-02-14] MEDS: Melatonin 3mg tablet PO SCH (19:32)
[2022-02-14] MEDS: lamoTRIgine 100mg tablet PO SCH (19:32)
[2022-02-14] MEDS: montelukast 10mg tablet PO SCH (19:32)
[2022-02-14] MEDS: polyethylene glycol 3350 17gm powd pack PO SCH (19:33)
[2022-02-14] MEDS: fluvoxamine 25 MG tablet PO SCH (19:33)
--- NOTE | 2022-02-14 21:24 | NUR ---
PT WAS TRANSFERRED OVER TO ED ROOM 15. I AGREE WITH THE RN'S PYSCH ASSESSMENT. WILL UPDATE CHANGES NEEDED.
[2022-02-15] MEDS: LORazepam 1 MG tablet PO PRN ×2 (01:54→05:00)
--- NOTE | 2022-02-15 02:04 | NUR ---
PT AWOKE INCONTINENT OF URINE. SHE AND HER BEDDING WERE CHANGED. PT IS BACK ON [facility] WITH A SITTER IN THE ROOM. WILL UPDATE NEEDED.
[2022-02-15] MEDS ORDERED: LORazepam 2 mg/ml vial IM ONE ×3 (06:50→22:55)
[2022-02-15] MEDS ORDERED: haloperidol lactate 5mg/ml inj IM ONE (06:50)
--- NOTE | 2022-02-15 06:55 | NUR ---
PT YELLING AT STAFF, AGGITATED AND BECOMING COMBATIVE. VERBAL ORDER FOR SOFT RESTRAINTS OBTAINED BY DR ANDERSEN. PT PLACED IN 3 PT SOFT RESTRAINTS; B/L ARMS AND RT ANKLE RESTRAINT PLACED
--- NOTE | 2022-02-15 07:00 | NUR ---
VSS, pt has left large toenail that is 90% removed. nail black. aware. will continue to monitor.
[2022-02-15] MEDS: atorvastatin 10mg tablet PO SCH (07:25)
[2022-02-15] MEDS: nicotine 21mg patch - 24 hr TD SCH (07:25)
[2022-02-15] MEDS: lactobacillus rhamnosus 10,000 MMU CELLS/CAPSULE PO SCH (07:25)
[2022-02-15] MEDS: ascorbic acid 500mg tablet PO SCH ×2 (07:26→19:58)
[2022-02-15] MEDS: multivitamins, therapeutics tablet PO SCH (07:26)
[2022-02-15] MEDS: LORazepam 1 MG tablet PO SCH ×2 (07:26→19:59)
[2022-02-15] MEDS: benztropine 1mg tablet PO SCH ×2 (07:27→19:59)
[2022-02-15] MEDS: ferrous sulfate 325mg tablet PO SCH ×2 (07:27→19:58)
[2022-02-15] MEDS: haloperidol 5mg tablet PO SCH ×2 (07:27→19:59)
[2022-02-15] MEDS: quetiapine 100mg tablet PO SCH (07:27)
[2022-02-15] MEDS: sennosides 8.6mg tablet PO SCH ×2 (07:27→19:59)
[2022-02-15] MEDS: JUVEN Shake w/Arg/Glut/Ca2+Bmb (Juven 19.3gm) pkt 240ml PO SCH ×3 (08:45→18:20)
[2022-02-15] MEDS: vortioxetine HBr tablet 5 MG TABLET PO SCH ×2 (10:55→19:59)
--- NOTE | 2022-02-15 16:21 | NUR ---
Pt yelling, "I wan't coffee! I wan't dinner!"
--- NOTE | 2022-02-15 16:21 | NUR ---
Pt moved from ER main bed 15 to ER OF bed 23 accompanied by aldo. Addendum: 02/15/22 at 1624 by LINNEA Pt is in soft 3 point restraints, both arms and right leg, pt is wearing soft mitts on her hands.
--- NOTE | 2022-02-15 16:35 | NUR ---
pt taken over to overflow. report given
--- NOTE | 2022-02-15 17:21 | NUR ---
Pt placed on the commode, she voided.
--- NOTE | 2022-02-15 17:21 | NUR ---
Right leg soft restraint removed. Pt remains in soft mitten restraints.
--- NOTE | 2022-02-15 18:05 | NUR ---
Hands no longer restrained. Pt is still wearing her mittens to prevent scratching.
--- NOTE | 2022-02-15 18:53 | NUR ---
The patient is sitting up and eating her dinner.
[2022-02-15] MEDS: polyethylene glycol 3350 17gm powd pack PO SCH (19:58)
[2022-02-15] MEDS: montelukast 10mg tablet PO SCH (19:58)
[2022-02-15] MEDS: docusate sod 250mg capsule PO SCH (19:58)
[2022-02-15] MEDS: Melatonin 3mg tablet PO SCH (19:58)
[2022-02-15] MEDS: fluvoxamine 25 MG tablet PO SCH (19:59)
[2022-02-15] MEDS: quetiapine fumarate ER 300mg tablet PO SCH (19:59)
[2022-02-15] MEDS: lamoTRIgine 100mg tablet PO SCH (19:59)
[2022-02-15] MEDS: traZODone 50mg tablet PO SCH (20:00)
--- NOTE | 2022-02-15 20:34 | NUR ---
The patient is agitated and swearing at staff. She had her HS medications if agitation continues will request additional medications.
--- NOTE | 2022-02-15 21:03 | NUR ---
The patient screaming and agitated, "I want my fucking furniture!" and other odd statements. Kicking at staff. IM atjuliet given
[2022-02-15] MEDS ORDERED: haloperidol lactate 5mg/ml inj ONE (21:09)
--- NOTE | 2022-02-15 21:13 | NUR ---
The patient kicking at the staff and screaming. She is not redirectable. IM medications given.
--- NOTE | 2022-02-15 21:15 | NUR ---
Security at the bedside and restraints place for safety
[2022-02-15] MEDS ORDERED: diphenhydrAMINE 50 mg/ml inj IM ONE (22:55)
--- NOTE | 2022-02-15 23:00 | NUR ---
The patient is screaming and kicking at bedside PROPERTY AND SUPPLY OFFICER. Md made aware and orders received and the patient placed back in restraints with the assist of security staff.
--- NOTE | 2022-02-16 01:13 | NUR ---
The patient appears to be sleeping at this time. She remains one to one with staff.
--- NOTE | 2022-02-16 03:01 | NUR ---
The patient appears to be sleeping
--- NOTE | 2022-02-16 05:02 | NUR ---
The patient appears to be sleeping
--- NOTE | 2022-02-16 06:30 | NUR ---
Patient complaining and being placed in recliner. Patient has a sitter due to behaviors. Continue to monitor.
[2022-02-16] MEDS: ascorbic acid 500mg tablet PO SCH ×2 (08:00→20:00)
[2022-02-16] MEDS: JUVEN Shake w/Arg/Glut/Ca2+Bmb (Juven 19.3gm) pkt 240ml PO SCH ×3 (08:00→18:00)
[2022-02-16] MEDS: sennosides 8.6mg tablet PO SCH ×2 (08:00→20:00)
--- NOTE | 2022-02-16 08:26 | NUR ---
Patient has been sleeping for about 30 minutes. Breakfast is here but we won't awaken patient until she wakes up on her own. Patient only slept about 4 hours last night. Continue to monitor.
[2022-02-16] MEDS: ferrous sulfate 325mg tablet PO SCH ×2 (08:50→20:00)
[2022-02-16] MEDS: multivitamins, therapeutics tablet PO SCH (08:50)
[2022-02-16] MEDS: lactobacillus rhamnosus 10,000 MMU CELLS/CAPSULE PO SCH (08:50)
[2022-02-16] MEDS: benztropine 1mg tablet PO SCH ×2 (08:50→20:11)
[2022-02-16] MEDS: quetiapine 100mg tablet PO SCH (08:50)
[2022-02-16] MEDS: atorvastatin 10mg tablet PO SCH (08:50)
[2022-02-16] MEDS: haloperidol 5mg tablet PO SCH ×2 (08:50→20:11)
[2022-02-16] MEDS: LORazepam 1 MG tablet PO SCH ×2 (08:51→20:10)
[2022-02-16] MEDS: nicotine 21mg patch - 24 hr TD SCH (08:51)
[2022-02-16] MEDS: vortioxetine HBr tablet 5 MG TABLET PO SCH ×2 (08:55→20:12)
--- NOTE | 2022-02-16 10:24 | NUR ---
Patient yelling and hitting at sitter. Patient does not follow commands very well at this time. Continue to monitor.
--- NOTE | 2022-02-16 12:14 | NUR ---
Patient reclining in recliner and asleep. No distress observed. Continue to monitor.
--- NOTE | 2022-02-16 13:49 | NUR ---
Patient is awake, quiet and eating lunch. Continue to monitor.
--- NOTE | 2022-02-16 15:20 | NUR ---
Patient is screaming, kicking and hitting the wall with her mits. Patient was in the recliner but she kept attempting to get up. Patient needs max assist to transfer. Patient wants a walker but she is weight and it would be dangerous. Patient was put back to bed because of danger of patient attempting to get out of recliner. Patient is repetitive and will not follow instructions. Sitter at bedside. Continue to monitor.
[2022-02-16] MEDS ORDERED: ziprasidone IM 20mg inj **IM only IM ONE (16:25)
--- NOTE | 2022-02-16 16:26 | NUR ---
Patient throwing her legs over the side and attempting to get up. RN spoke to Matteo MARIA who ordered Geodon I.M. Per Esthela, if med does not work. He will re-evaluate for soft restraints. Continue to monitor.
--- NOTE | 2022-02-16 16:49 | NUR ---
Patient given I.M. Geodon and placed in recliner. RN re-dressed patient's left cheek wound with a wet to dry dressing. Patient was pulling off her dressing. Continue to monitor.
--- NOTE | 2022-02-16 18:18 | NUR ---
Vignesh Alarcon is feeding patient. Patient is quiet and no distress observed.
--- NOTE | 2022-02-16 19:59 | NUR ---
The patient is increasingly agitated. Hitting and kicking at staff. Screaming "I'm going to pick my skin and eat it!" She is refusing any kind of redirection. Security called and placed in 4 point soft restraints. Koffi MARIA made aware of patient behaviors, medications given and that the patient was placed in restraints for safety.
[2022-02-16] MEDS: polyethylene glycol 3350 17gm powd pack PO SCH (20:10)
[2022-02-16] MEDS: quetiapine fumarate ER 300mg tablet PO SCH (20:10)
[2022-02-16] MEDS: fluvoxamine 25 MG tablet PO SCH (20:10)
[2022-02-16] MEDS: traZODone 50mg tablet PO SCH (20:11)
[2022-02-16] MEDS: lamoTRIgine 100mg tablet PO SCH (20:11)
[2022-02-16] MEDS: montelukast 10mg tablet PO SCH (20:13)
[2022-02-16] MEDS: Melatonin 3mg tablet PO SCH (20:13)
[2022-02-16] MEDS: docusate sod 250mg capsule PO SCH (20:13)
--- NOTE | 2022-02-16 20:54 | NUR ---
discussed case with conveyor line battery charger
[2022-02-16] MEDS ORDERED: haloperidol lactate 5mg/ml inj IM ONE (21:10)
[2022-02-16] MEDS ORDERED: LORazepam 2 mg/ml vial IM ONE (21:10)
--- NOTE | 2022-02-16 21:25 | NUR ---
Case discussed with MD and orders received for additonal medications. The patient is not responding to verbal interventions or comfort measures. IM medications given in attempt to decrease patient agitation and hopefully make it possible to get her out of restraints. Security at the bedside.
--- NOTE | 2022-02-16 22:27 | NUR ---
The patient appears to be sleeping
--- NOTE | 2022-02-16 22:28 | NUR ---
Call to [facility] and spoke with fire extinguisher charger and requested psychiatric medication evaluation
--- NOTE | 2022-02-16 23:47 | NUR ---
The patient is sleeping. She continues one to one with staff.
--- NOTE | 2022-02-17 00:48 | NUR ---
The patient is sleeping. She continues with one to one with staff
--- NOTE | 2022-02-17 02:16 | NUR ---
The patient appears to be sleeping
--- NOTE | 2022-02-17 04:03 | NUR ---
The patient is sleeping and is one to one with staff
--- NOTE | 2022-02-17 04:22 | NUR ---
The patient is awake and screaming about various topics. She does not respond to internal stimuli
--- NOTE | 2022-02-17 05:01 | NUR ---
Patient awake and up in the chair. She is given a snack and fluids. Assisted with brief change and hygiene. Dressing to left cheeck changed
--- NOTE | 2022-02-17 06:35 | NUR ---
Patient has just fallen asleep. Patient is in the recliner. Light is on. No distress observed. Continue to monitor.
[2022-02-17] MEDS: ferrous sulfate 325mg tablet PO SCH ×2 (08:14→20:10)
[2022-02-17] MEDS: benztropine 1mg tablet PO SCH ×2 (08:14→20:10)
[2022-02-17] MEDS: quetiapine 100mg tablet PO SCH (08:14)
[2022-02-17] MEDS: ascorbic acid 500mg tablet PO SCH ×2 (08:14→20:24)
[2022-02-17] MEDS: multivitamins, therapeutics tablet PO SCH (08:14)
[2022-02-17] MEDS: haloperidol 5mg tablet PO SCH ×2 (08:14→20:11)
[2022-02-17] MEDS: sennosides 8.6mg tablet PO SCH ×2 (08:14→20:10)
[2022-02-17] MEDS: vortioxetine HBr tablet 5 MG TABLET PO SCH ×2 (08:14→20:26)
[2022-02-17] MEDS: atorvastatin 10mg tablet PO SCH (08:14)
[2022-02-17] MEDS: lactobacillus rhamnosus 10,000 MMU CELLS/CAPSULE PO SCH (08:14)
[2022-02-17] MEDS: nicotine 21mg patch - 24 hr TD SCH (08:15)
[2022-02-17] MEDS: LORazepam 1 MG tablet PO SCH ×2 (08:15→20:11)
[2022-02-17] MEDS: JUVEN Shake w/Arg/Glut/Ca2+Bmb (Juven 19.3gm) pkt 240ml PO SCH ×3 (08:16→18:11)
--- NOTE | 2022-02-17 08:20 | NUR ---
Patient awoke and is being fed breakfast by Tech. No distress noted at this time. Continue to monitor.
--- NOTE | 2022-02-17 10:10 | NUR ---
Patient yelling and attempting to get out of chair so placed in bed. Continue to monitor.
[2022-02-17] MEDS: nicotine 7mg patch - 24hr TD SCH (10:20)
--- NOTE | 2022-02-17 11:10 | NUR ---
Patient continues to yell. Continue to monitor.
--- NOTE | 2022-02-17 11:20 | NUR ---
unable to get pt's vitals. pt does not appear to be in any resp. distress at this time. Addendum: 02/17/22 at 1122 by Jeet Sherwood RT Amended: Links added.
--- NOTE | 2022-02-17 12:09 | NUR ---
Patient eating luch. Tech is feeding patient. No distress observed. Continue to monitor.
[2022-02-17] MEDS ORDERED: haloperidol lactate 5mg/ml inj IM ONE ×3 (14:00→21:40)
[2022-02-17] MEDS ORDERED: LORazepam 2 mg/ml vial IM ONE ×2 (14:00→21:40)
[2022-02-17] MEDS ORDERED: diphenhydrAMINE 50 mg/ml inj IM ONE ×2 (14:00→21:40)
--- NOTE | 2022-02-17 14:02 | NUR ---
Patient is still screaming and attempting to get out of chair and does not want to get into bed. Patient is unable to walk (RN to do a PT Consult to evaluate her walking ability). RN spoke to Sudha Tam who ordered Ativan, Benadryl and Haldol I.M. Continue to monitor.
--- NOTE | 2022-02-17 15:37 | NUR ---
Patient continues to scream and attempt to get out of bed. Continue to monitor.
--- NOTE | 2022-02-17 16:44 | NUR ---
Patient given yogurt, applesauce and 1/2 cup of coffee. Patient is more calm. Continue to monitor.
--- NOTE | 2022-02-17 17:01 | NUR ---
PHYSICAL THERAPY CONSULT/EVAL AND TREAT Placed by RN. Patient used a walker at care home.
--- NOTE | 2022-02-17 18:00 | NUR ---
Patient getting KUB. Unknown last BM. No BM in >48 hours.
[2022-02-17] MEDS: quetiapine fumarate ER 300mg tablet PO SCH (18:12)
--- NOTE | 2022-02-17 18:30 | NUR ---
Patient is awake and moderativly cooperative. A sitter is at bedside.
--- NOTE | 2022-02-17 19:28 | NUR ---
Patient is starting to become intrusive, she is angry that she can't go outside and smoke.
[2022-02-17] MEDS: magnesium hydroxide 30ml (MOM) UD suspension PO PRN (20:10)
[2022-02-17] MEDS: polyethylene glycol 3350 17gm powd pack PO SCH (20:23)
[2022-02-17] MEDS: Melatonin 3mg tablet PO SCH (20:24)
[2022-02-17] MEDS: traZODone 50mg tablet PO SCH (20:24)
[2022-02-17] MEDS: fluvoxamine 25 MG tablet PO SCH (20:25)
[2022-02-17] MEDS: docusate sod 250mg capsule PO SCH (20:25)
[2022-02-17] MEDS: lamoTRIgine 100mg tablet PO SCH (20:34)
--- NOTE | 2022-02-17 20:37 | NUR ---
Patient is becoming more labile. She is starting to kick at female sitter.
[2022-02-17] MEDS: montelukast 10mg tablet PO SCH (21:00)
--- NOTE | 2022-02-17 21:10 | NUR ---
Patient was medication compliant. Behavior is more labile now.
--- NOTE | 2022-02-17 21:30 | NUR ---
Patient has been yelling and screaming all night. She is now kicking at staff. This grant writer will talk to SVEN JIMÉNEZ.
--- NOTE | 2022-02-17 22:14 | NUR ---
Per ER Ativan 2 mg IM, Haldol 10 mg IM, and Benadryl 50 mg IM was administered. The patient is now calming.
--- NOTE | 2022-02-18 03:50 | NUR ---
Patient is sleeping well in a supine position. She has self repossitioned. A sitter remains at bedside.
--- NOTE | 2022-02-18 05:15 | NUR ---
Patient is sleeping quietly on her right side. No distress.
--- NOTE | 2022-02-18 06:47 | NUR ---
Patient urinated in bedside commode. Patient now back in recliner awake and calm at the moment. Continue to monitor.
--- NOTE | 2022-02-18 07:01 | NUR ---
Patient started yelling for her breakfast. Patient is not redirectable. Sitter at bedside. Continue to monitor.
[2022-02-18] MEDS: ferrous sulfate 325mg tablet PO SCH ×2 (08:00→20:19)
[2022-02-18] MEDS: ascorbic acid 500mg tablet PO SCH ×2 (08:03→20:19)
[2022-02-18] MEDS: sennosides 8.6mg tablet PO SCH ×2 (08:03→20:19)
[2022-02-18] MEDS: haloperidol 5mg tablet PO SCH ×2 (08:03→20:19)
[2022-02-18] MEDS: quetiapine 100mg tablet PO SCH (08:03)
[2022-02-18] MEDS: lactobacillus rhamnosus 10,000 MMU CELLS/CAPSULE PO SCH (08:03)
[2022-02-18] MEDS: LORazepam 1 MG tablet PO SCH ×2 (08:03→20:19)
[2022-02-18] MEDS: multivitamins, therapeutics tablet PO SCH (08:03)
[2022-02-18] MEDS: vortioxetine HBr tablet 5 MG TABLET PO SCH ×2 (08:03→20:19)
[2022-02-18] MEDS: benztropine 1mg tablet PO SCH ×2 (08:03→20:20)
[2022-02-18] MEDS: atorvastatin 10mg tablet PO SCH (08:03)
[2022-02-18] MEDS: nicotine 7mg patch - 24hr TD SCH (08:04)
[2022-02-18] MEDS: JUVEN Shake w/Arg/Glut/Ca2+Bmb (Juven 19.3gm) pkt 240ml PO SCH ×3 (08:08→18:14)
--- NOTE | 2022-02-18 08:20 | NUR ---
Patient did not stop yelling since 0701 for her breakfast. Breakfast finally arrived. Continue to monitor.
--- NOTE | 2022-02-18 08:35 | NUR ---
Patient eating breakfast. No distress observed. Continue to monitor.
--- NOTE | 2022-02-18 09:46 | NUR ---
Patient sleeping in recliner. No distress observed. Continue to monitor.
--- NOTE | 2022-02-18 11:19 | NUR ---
Patient sleeping. No distress observed. Continue to monitor.
--- NOTE | 2022-02-18 12:23 | NUR ---
Patient eating lunch. No distress observed. Continue to monitor.
--- NOTE | 2022-02-18 14:18 | NUR ---
Patient awake and relatively quiet at this time. Continue to monitor.
[2022-02-18] MEDS: quetiapine fumarate ER 300mg tablet PO SCH (15:46)
--- NOTE | 2022-02-18 16:10 | NUR ---
Patient yelling and wanting coffee. Patient does not listen to direction. Continue to monitor.
--- NOTE | 2022-02-18 17:10 | NUR ---
RN spoke to ALIS Rivera about tech noticed patient's Left hip bone is protruding out. Patient did not seem to feel pain when RN palpated area. Right sided hip appears normal. Nicole stated she would come evaluate patient.
--- NOTE | 2022-02-18 19:40 | NUR ---
Patient is sitting up in her chair, she finished her dinner. Patient is cooperative at this point.
[2022-02-18] MEDS: Melatonin 3mg tablet PO SCH (20:19)
[2022-02-18] MEDS: fluvoxamine 25 MG tablet PO SCH (20:19)
[2022-02-18] MEDS: montelukast 10mg tablet PO SCH (20:19)
[2022-02-18] MEDS: docusate sod 250mg capsule PO SCH (20:19)
[2022-02-18] MEDS: traZODone 50mg tablet PO SCH (20:20)
[2022-02-18] MEDS: polyethylene glycol 3350 17gm powd pack PO SCH (20:20)
[2022-02-18] MEDS: lamoTRIgine 100mg tablet PO SCH (20:23)
--- NOTE | 2022-02-18 20:47 | NUR ---
Patient was transfered from chair back to her bed. She is somewhat labile. Patient had wet her brief. She was cleaned. A new brief placed.
[2022-02-18] MEDS ORDERED: diphenhydrAMINE 50 mg/ml inj IM ONE (21:05)
[2022-02-18] MEDS ORDERED: haloperidol lactate 5mg/ml inj IM ONE ×2 (21:05→21:48)
[2022-02-18] MEDS ORDERED: LORazepam 2 mg/ml vial IM ONE ×2 (21:05→22:21)
--- NOTE | 2022-02-18 21:32 | NUR ---
A Benadryl 50 mg, Haldol 5 mg, and Ativan 2 mg all IM have been given. Patient is combative with female sitter.
--- NOTE | 2022-02-18 22:31 | NUR ---
Patient continues to be combative. Ativan 2 mg given IM to right thigh after consulting with ER MD.
--- NOTE | 2022-02-18 23:31 | NUR ---
Patient has finally fallen asleep.She is in direct view from the nurses station.
--- NOTE | 2022-02-19 00:18 | NUR ---
Patient is sleeping quietly, in view from nurses station.
--- NOTE | 2022-02-19 02:12 | NUR ---
Patient continues to sleep.
--- NOTE | 2022-02-19 03:05 | NUR ---
Patient is sleeping, a sitter is at bedside.
--- NOTE | 2022-02-19 04:00 | NUR ---
Patient continues to sleep. In view from nurses station.
[2022-02-19] MEDS ORDERED: LORazepam 2 mg/ml vial IM ONE (04:45)
[2022-02-19] MEDS ORDERED: diphenhydrAMINE 50 mg/ml inj IM ONE (04:45)
[2022-02-19] MEDS ORDERED: haloperidol lactate 5mg/ml inj IM ONE (04:45)
--- NOTE | 2022-02-19 05:18 | NUR ---
Patient has been awake, combative, and yelling for the past 45 minutes. ER MD approves B-50 mg, H-10 mg, and A-2 mg. All given IM. Patient kicked at staff.
--- NOTE | 2022-02-19 06:40 | NUR ---
EKG obtained. Pt was calm/cooperative.
--- NOTE | 2022-02-19 07:06 | NUR ---
Pt lying in bed restless. Pt mumbling to herself.
[2022-02-19] MEDS: JUVEN Shake w/Arg/Glut/Ca2+Bmb (Juven 19.3gm) pkt 240ml PO SCH ×3 (08:00→18:27)
[2022-02-19 08:11] LABS: BASOPHILS % (AUTO) 0.4 % (0-1); EOSINOPHILS # (AUTO) 0.1 X10'3 (0-0.9); EOSINOPHILS % (AUTO) 2.2 % (0-6); HEMATOCRIT 38.5 % (35.0-45.0); HEMOGLOBIN 12.9 g/dl (12.0-16.0); LYMPHOCYTES # (AUTO) 1.4 X10'3 (1.1-4.8); LYMPHOCYTES % (AUTO) 23.5 % (21-51); MEAN CORPUSCULAR HEMOGLOBIN 30.6 PG (27.0-31.0); MEAN CORPUSCULAR HGB CONC 33.6 g/dL (33.0-36.5); MEAN CORPUSCULAR VOLUME 91.1 FL (78-98); MEAN PLATELET VOLUME 8.3 FL (7.4-10.4); MONOCYTES # (AUTO) 0.5 X10'3 (0-0.9); MONOCYTES % (AUTO) 8.8 % (2-12); NEUTROPHILS # (AUTO) 3.8 X10'3 (1.8-7.7); NEUTROPHILS % (AUTO) 65.1 % (42-75); PLATELET COUNT 142 X10'3 (140-440); RED BLOOD COUNT 4.23 X10'6 (4.20-5.60); RED CELL DISTRIBUTION WIDTH 12.6 % (11.5-14.5); WHITE BLOOD COUNT 5.8 X10'3 (4.5-11.0)
[2022-02-19 08:25] LABS: ALANINE AMINOTRANSFERASE 51 U/L (12-78); ALBUMIN 3.4 G/DL (3.4-5.0); ALKALINE PHOSPHATASE 58 IU/L (46-116); ANION GAP 8 (8-16); ASPARTATE AMINO TRANSFERASE 54 U/L (10-37); BILIRUBIN,TOTAL 0.3 MG/DL (0.1-1.0); BLOOD UREA NITROGEN 23 MG/DL (7-18); CALCIUM 9.1 MG/DL (8.5-10.1); CHLORIDE 103 MMOL/L (99-107); CREATININE 0.59 MG/DL (0.40-0.90); GLUCOSE 98 MG/DL (70-104); POTASSIUM 4.2 MMOL/L (3.5-5.1); SODIUM 141 MMOL/L (135-145); TOTAL CARBON DIOXIDE 29.9 MMOL/L (24-32); TOTAL PROTEIN 6.8 G/DL (6.4-8.2); eGFR > 90 ML/MIN
[2022-02-19 08:40] LABS: CREATINE KINASE 2199 U/L (26-192)
[2022-02-19] MEDS: lactobacillus rhamnosus 10,000 MMU CELLS/CAPSULE PO SCH (08:58)
[2022-02-19] MEDS: ferrous sulfate 325mg tablet PO SCH ×2 (08:58→20:55)
[2022-02-19] MEDS: LORazepam 1 MG tablet PO SCH ×2 (08:59→20:55)
[2022-02-19] MEDS: haloperidol 5mg tablet PO SCH ×2 (08:59→20:55)
[2022-02-19] MEDS: quetiapine 100mg tablet PO SCH (08:59)
[2022-02-19] MEDS: atorvastatin 10mg tablet PO SCH (08:59)
[2022-02-19] MEDS: multivitamins, therapeutics tablet PO SCH (08:59)
[2022-02-19] MEDS: benztropine 1mg tablet PO SCH ×2 (08:59→20:55)
[2022-02-19] MEDS: sennosides 8.6mg tablet PO SCH ×2 (08:59→20:55)
[2022-02-19] MEDS: vortioxetine HBr tablet 5 MG TABLET PO SCH ×2 (09:00→20:55)
--- NOTE | 2022-02-19 09:00 | NUR ---
Pt has been restless, attempting to crawl out of bed. Sitter at bedside. Pt is difficult to understand as she is mumbling. Pt was administered her medication with water without issue. Pt required full assist both to the bedside commode and with eating. Pt ate 100% of protein and 90% of her carbs. Pt's linens were changed. Pt has a basal cell carcinoma to left cheek that was cleansed with NS and dressed. Wound consult placed. Pt's LBM was 02/08. Imaging done on 02/17 which showed moderate to severe constipation. Pt is on Colace 250 mg HS, Senokot 8.6 BID, and Miralax HS. Pt was administered a dulcolax suppository. Will continue to monitor.
--- NOTE | 2022-02-19 09:05 | NUR ---
Noted erythema on bilateral elbows. Opti foam dressing placed on both. Picture obtained of left check carcinoma.
[2022-02-19] MEDS: bisacodyl 10mg suppository rectal RC PRN (09:12)
[2022-02-19] MEDS: ascorbic acid 500mg tablet PO SCH ×2 (09:12→20:00)
[2022-02-19] MEDS: nicotine 7mg patch - 24hr TD SCH (09:16)
--- NOTE | 2022-02-19 10:30 | NUR ---
Pt assisted to bedside commode. Large soft BM. Pt cleaned and placed back into bed. Dorian rider braided hair.
--- NOTE | 2022-02-19 11:00 | NUR ---
Pt resting comfortably in mid patrick's position. Respirations even and unlabored.
--- NOTE | 2022-02-19 13:00 | NUR ---
Pt awake eating her lunch. Pt requires sitter to feed her.
[2022-02-19] MEDS: LORazepam 1 MG tablet PO PRN ×2 (14:02→15:18)
--- NOTE | 2022-02-19 14:33 | NUR ---
Pt sitting up in chair, restless, but calm.
[2022-02-19] MEDS: quetiapine fumarate ER 300mg tablet PO SCH (16:09)
--- NOTE | 2022-02-19 16:10 | NUR ---
Pt was administered her 1600 Seroquel 600 mg. Pt took without issue. Pt is sitting in chair next to her bed. Pt is restless, but has had no physical outbursts. Pt is continually remined that she can't climb out of the chair. Pt continues to repeat "I want to get out of here." "I want coffe." "I want out of the bed." Pt answers requests appropriately, but repeats answers. Pt is given coffee and or snacks whe requested. Dinner will be here in about an hour.
--- NOTE | 2022-02-19 18:28 | NUR ---
Pt laying in bed sitter is assisting patient with eating applesauce.
--- NOTE | 2022-02-19 19:00 | NUR ---
Sitter at bedside assisting patient with eating dinner.
[2022-02-19] MEDS: docusate sod 250mg capsule PO SCH (20:55)
--- NOTE | 2022-02-19 20:55 | NUR ---
Pt was repositioned in bed. Pt woke to take HS meds. Pt took meds and went back to sleep. Sitter at bedside.
[2022-02-19] MEDS: lamoTRIgine 100mg tablet PO SCH (20:56)
[2022-02-19] MEDS: fluvoxamine 25 MG tablet PO SCH (20:56)
[2022-02-19] MEDS: Melatonin 3mg tablet PO SCH (21:00)
[2022-02-19] MEDS: traZODone 50mg tablet PO SCH (21:00)
[2022-02-19] MEDS: polyethylene glycol 3350 17gm powd pack PO SCH (21:00)
[2022-02-19] MEDS: montelukast 10mg tablet PO SCH (21:02)
--- NOTE | 2022-02-19 22:14 | NUR ---
Pt appears to be sleeping. Sitter at bedside [id number]
--- NOTE | 2022-02-20 01:34 | NUR ---
Pt is laying in bed appears to be sleeping [id number]
--- NOTE | 2022-02-20 03:29 | NUR ---
Pt laying in bed, appears to be asleep rr even and unlabored
--- NOTE | 2022-02-20 04:20 | NUR ---
pt up to use the commode via 2 person assist. pt is choosing to sit up in her chair and have a snack.
--- NOTE | 2022-02-20 05:30 | NUR ---
Pts bedding was changed and she had her hair washed. Bedding and gown were changed. Pt returned to bed via 2 person assist. Pt reports feeling tired from medicine.
--- NOTE | 2022-02-20 06:28 | NUR ---
Patient awake and laying in bed fussing that she wants to get up. Per security shift supervisor patient kept slipping down in the recliner and they didn't feel the recliner was safe. Patient's sitter at side. Patient keeps attempting to throw her legs over the side of the bed. Continue to monitor.
[2022-02-20] MEDS: ferrous sulfate 325mg tablet PO SCH ×2 (08:00→21:11)
[2022-02-20] MEDS: sennosides 8.6mg tablet PO SCH ×2 (08:03→21:12)
[2022-02-20] MEDS: LORazepam 1 MG tablet PO SCH ×2 (08:03→21:11)
[2022-02-20] MEDS: ascorbic acid 500mg tablet PO SCH ×2 (08:04→21:09)
[2022-02-20] MEDS: quetiapine 100mg tablet PO SCH (08:04)
[2022-02-20] MEDS: haloperidol 5mg tablet PO SCH ×2 (08:04→21:12)
[2022-02-20] MEDS: atorvastatin 10mg tablet PO SCH (08:04)
[2022-02-20] MEDS: vortioxetine HBr tablet 5 MG TABLET PO SCH ×2 (08:04→21:12)
[2022-02-20] MEDS: nicotine 7mg patch - 24hr TD SCH (08:04)
[2022-02-20] MEDS: JUVEN Shake w/Arg/Glut/Ca2+Bmb (Juven 19.3gm) pkt 240ml PO SCH ×3 (08:04→18:05)
[2022-02-20] MEDS: benztropine 1mg tablet PO SCH ×2 (08:04→21:11)
[2022-02-20] MEDS: lactobacillus rhamnosus 10,000 MMU CELLS/CAPSULE PO SCH (08:04)
[2022-02-20] MEDS: multivitamins, therapeutics tablet PO SCH (08:04)
--- NOTE | 2022-02-20 08:22 | NUR ---
Patient eating breakfast and feeding herself. No distress observed. Continue to monitor.
--- NOTE | 2022-02-20 10:17 | NUR ---
Patient sleeping in recliner. No distress observed. Continue to monitor.
--- NOTE | 2022-02-20 12:11 | NUR ---
Patient eating lunch. No distress observed. Continue to monitor.
[2022-02-20] MEDS: LORazepam 1 MG tablet PO PRN (13:34)
--- NOTE | 2022-02-20 14:02 | NUR ---
Patient screaming and yelling and attempting to get out of the recliner. Continue to monitor.
--- NOTE | 2022-02-20 15:05 | NUR ---
Patient went on a short stroll outside in w/c with Security and Tech at side. Patient was out for less than 10 minutes. Patient was content. Continue to monitor.
[2022-02-20] MEDS: quetiapine fumarate ER 300mg tablet PO SCH (16:16)
[2022-02-20] MEDS ORDERED: haloperidol lactate 5mg/ml inj IM ONE (16:35)
[2022-02-20] MEDS ORDERED: LORazepam 2 mg/ml vial IM ONE (16:35)
--- NOTE | 2022-02-20 16:37 | NUR ---
Patient has been screaming for hours except when she is eating and her little short outing outside. Patient has been kicking and hitting her sitter. RN spoke to Dr Awad who came to see patient. Dr. Awad ordered Chemical restraint. Continue to monitor.
--- NOTE | 2022-02-20 17:13 | NUR ---
Patient continues to yell. Continue to monitor.
--- NOTE | 2022-02-20 19:33 | NUR ---
Pt restless kicking at sitter at start of shift. Sat in chair for dinner. Pt sleeping in chair at this time.
[2022-02-20] MEDS: Melatonin 3mg tablet PO SCH (21:09)
[2022-02-20] MEDS: lamoTRIgine 100mg tablet PO SCH (21:09)
[2022-02-20] MEDS: fluvoxamine 25 MG tablet PO SCH (21:10)
[2022-02-20] MEDS: docusate sod 250mg capsule PO SCH (21:10)
[2022-02-20] MEDS: traZODone 50mg tablet PO SCH (21:10)
[2022-02-20] MEDS: montelukast 10mg tablet PO SCH (21:10)
[2022-02-20] MEDS: polyethylene glycol 3350 17gm powd pack PO SCH (21:51)
--- NOTE | 2022-02-20 22:21 | NUR ---
Pt took HS meds, up to BS comode with assist x2 600cc clr felicia urine VS 98/57 HR 75 95%RA resp 14. Pt sleeping at this time resp even and unlabored sitter at bedside.
--- NOTE | 2022-02-21 00:41 | NUR ---
Pt sleeping resp even and unlabored. Sitter at bedside.
--- NOTE | 2022-02-21 04:08 | NUR ---
Pt sleeping resp even and unlabored. Sitter at bedside.
[2022-02-21] MEDS: LORazepam 1 MG tablet PO PRN (05:13)
--- NOTE | 2022-02-21 05:18 | NUR ---
Pt awake 400 cc clr yellow urine in BSC. Pt restless yelling. Into recliner pt continues to yell. Given 2mg Ativan per prn order. Sitter at Chairside preventing pt from falling.
[2022-02-21] MEDS ORDERED: haloperidol 5mg tablet PO ONE (05:45)
--- NOTE | 2022-02-21 06:32 | NUR ---
RN came in at 0600 and patient was yelling and has continued to yell. RN and Tech placed patient on the bedside Commode and patient urinated. RN and Tech placed patient back in bed. Continue to monitor.
--- NOTE | 2022-02-21 07:19 | NUR ---
Patient has continued to yell non-stop since RN arrived at 0600. Sitter at bedside. Continue to monitor.
[2022-02-21] MEDS: ferrous sulfate 325mg tablet PO SCH ×2 (08:00→20:05)
[2022-02-21] MEDS: vortioxetine HBr tablet 5 MG TABLET PO SCH ×2 (08:00→20:04)
--- NOTE | 2022-02-21 08:15 | NUR ---
Patient quiet when eating breakfast. Sitter assisting patient. Continue to monitor.
[2022-02-21] MEDS: benztropine 1mg tablet PO SCH ×2 (08:22→20:05)
[2022-02-21] MEDS: lactobacillus rhamnosus 10,000 MMU CELLS/CAPSULE PO SCH (08:22)
[2022-02-21] MEDS: ascorbic acid 500mg tablet PO SCH ×2 (08:22→20:05)
[2022-02-21] MEDS: quetiapine 100mg tablet PO SCH (08:22)
[2022-02-21] MEDS: sennosides 8.6mg tablet PO SCH ×2 (08:22→20:04)
[2022-02-21] MEDS: haloperidol 5mg tablet PO SCH ×2 (08:22→20:05)
[2022-02-21] MEDS: atorvastatin 10mg tablet PO SCH (08:22)
[2022-02-21] MEDS: LORazepam 1 MG tablet PO SCH ×2 (08:23→20:04)
[2022-02-21] MEDS: multivitamins, therapeutics tablet PO SCH (08:23)
[2022-02-21] MEDS: nicotine 7mg patch - 24hr TD SCH (08:23)
[2022-02-21] MEDS: JUVEN Shake w/Arg/Glut/Ca2+Bmb (Juven 19.3gm) pkt 240ml PO SCH ×3 (08:34→18:03)
--- NOTE | 2022-02-21 08:40 | NUR ---
Patient is eating breakfast. No distress observed. Continue to monitor.
--- NOTE | 2022-02-21 09:20 | NUR ---
Patient assisted up to bedside commode by Marleny Orozco. Patient tolerated well. Continue to monitor.
--- NOTE | 2022-02-21 11:10 | NUR ---
Patient continues to yell and complaind loudly. RN gave patient an applesauce but patient wanted pudding. No pudding available. Patient ate all the applesauce quickly. Continue to monitor.
--- NOTE | 2022-02-21 12:15 | NUR ---
Patient eating lunch. No distress observed. Continue to monitor.
--- NOTE | 2022-02-21 13:11 | NUR ---
VERY LARGE BM IN BEDSIDE COMMODE! Continue to monitor.
--- NOTE | 2022-02-21 14:17 | NUR ---
Patient continues to yell. RN and Tech placed patient in bed. Continue to monitor.
--- NOTE | 2022-02-21 15:33 | NUR ---
Patient got out of the bed by herself under supervision. Patient then got in the recliner. RN got patient a pair of undies because patient was asking for some. Patient denies needing to have a BM or urinate. Patient back in bed reclining. Patient asked for coffee and RN is making patient a fresh pot. Patient has been calm for about 15 minutes. Continue to monitor.
--- NOTE | 2022-02-21 15:45 | NUR ---
Patient sitting up in recliner. RN gave patient coloring pages and crayons. Patient is attempting to color. Continue to monitor.
[2022-02-21] MEDS: quetiapine fumarate ER 300mg tablet PO SCH (16:13)
--- NOTE | 2022-02-21 17:05 | NUR ---
Patient has been relatively quiet. Attempting to get out of recliner and needs to be redirected and sometimes blocked. Continue to monitor.
--- NOTE | 2022-02-21 18:30 | NUR ---
Patient yelling. One to one with staff. She is a high fall risk. She is responding to redirection poorly
--- NOTE | 2022-02-21 20:00 | NUR ---
The patient is screaming and not responding to redirection. HS medications given.
[2022-02-21] MEDS: polyethylene glycol 3350 17gm powd pack PO SCH (20:03)
[2022-02-21] MEDS: Melatonin 3mg tablet PO SCH (20:04)
[2022-02-21] MEDS: lamoTRIgine 100mg tablet PO SCH (20:04)
[2022-02-21] MEDS: docusate sod 250mg capsule PO SCH (20:04)
[2022-02-21] MEDS: montelukast 10mg tablet PO SCH (20:05)
[2022-02-21] MEDS: traZODone 50mg tablet PO SCH (20:05)
[2022-02-21] MEDS: fluvoxamine 25 MG tablet PO SCH (20:20)
[2022-02-21] MEDS ORDERED: haloperidol lactate 5mg/ml inj IM ONE (20:40)
[2022-02-21] MEDS ORDERED: LORazepam 2 mg/ml vial IM ONE (20:41)
--- NOTE | 2022-02-21 21:51 | NUR ---
The patient was increasingly agitated. She was trying to kick her one to one staff. Dr. Fontaine was made aware and IM medications were given. The patient appears to be sleeping at this time.
--- NOTE | 2022-02-21 23:59 | NUR ---
Discussed with gas charger patient labs. mate first discussed with Esthela MARIA
[2022-02-22] MEDS ORDERED: ringers solution, lacted 1,000 ML IV ONE (00:15)
--- NOTE | 2022-02-22 00:34 | NUR ---
Call to [facility] to follow up on psychiatric evaluation regarding medications.
--- NOTE | 2022-02-22 01:03 | NUR ---
THe patient appears to be sleeping. She remains one to one with staff
--- NOTE | 2022-02-22 02:45 | NUR ---
The patient appears to be sleeping. She remains one to one with staff
--- NOTE | 2022-02-22 04:38 | NUR ---
IV fluids started. Patient placed in non behavioral wrist restraints. Vital signs HR 97.6, 68, 18, 103/51. 95% on room air. Patient has a sitter at the bedside.
--- NOTE | 2022-02-22 04:42 | NUR ---
The patient is screaming.
--- NOTE | 2022-02-22 05:05 | NUR ---
The patient is screaming. Staff are changing her bed linenes. She is unresponsive to verbal reassurances.
[2022-02-22] MEDS ORDERED: ringers solution, lactated 1000ml IV soln IV ONE (05:30)
--- NOTE | 2022-02-22 06:46 | NUR ---
Patient continues to yell. RN gave patient some yogurt which kept her quiet for 4 minutes. Sitter at bedside. Continue to monitor.
[2022-02-22] MEDS: ferrous sulfate 325mg tablet PO SCH ×2 (08:00→20:15)
[2022-02-22] MEDS: JUVEN Shake w/Arg/Glut/Ca2+Bmb (Juven 19.3gm) pkt 240ml PO SCH ×3 (08:00→18:13)
--- NOTE | 2022-02-22 08:25 | NUR ---
Patient eating breakfast with the assistance of tech. No distress while eating breakfast. Continue to monitor.
[2022-02-22] MEDS: normal saline 1000ml 1,000 ML IV SCH ×2 (08:27→17:30)
[2022-02-22] MEDS: vortioxetine HBr tablet 5 MG TABLET PO SCH ×2 (08:36→20:16)
[2022-02-22] MEDS: haloperidol 5mg tablet PO SCH ×2 (08:36→20:15)
[2022-02-22] MEDS: ascorbic acid 500mg tablet PO SCH ×2 (08:36→20:15)
[2022-02-22] MEDS: LORazepam 1 MG tablet PO SCH ×2 (08:36→20:14)
[2022-02-22] MEDS: lactobacillus rhamnosus 10,000 MMU CELLS/CAPSULE PO SCH (08:36)
[2022-02-22] MEDS: benztropine 1mg tablet PO SCH ×2 (08:36→20:16)
[2022-02-22] MEDS: atorvastatin 10mg tablet PO SCH (08:36)
[2022-02-22] MEDS: sennosides 8.6mg tablet PO SCH ×2 (08:36→20:16)
[2022-02-22] MEDS: quetiapine 100mg tablet PO SCH (08:36)
[2022-02-22] MEDS: nicotine 7mg patch - 24hr TD SCH (08:37)
[2022-02-22] MEDS: multivitamins, therapeutics tablet PO SCH (08:37)
--- NOTE | 2022-02-22 09:15 | NUR ---
relieving RN for break, pt is resting quietly on aldo bethea at bedside
[2022-02-22 09:38] LABS: ALANINE AMINOTRANSFERASE 46 U/L (12-78); ALKALINE PHOSPHATASE 54 IU/L (46-116); ANION GAP 9 (8-16); ASPARTATE AMINO TRANSFERASE 43 U/L (10-37); BILIRUBIN,TOTAL 0.3 MG/DL (0.1-1.0); BLOOD UREA NITROGEN 23 MG/DL (7-18); BUN/CREATININE RATIO 35.9 (6.6-38.0); CALCIUM 8.8 MG/DL (8.5-10.1); CHLORIDE 105 MMOL/L (99-107); CREATININE 0.64 MG/DL (0.40-0.90); GLUCOSE 109 MG/DL (70-104); SODIUM 144 MMOL/L (135-145); TOTAL CARBON DIOXIDE 29.9 MMOL/L (24-32); TOTAL PROTEIN 6.1 G/DL (6.4-8.2); eGFR > 90 ML/MIN
[2022-02-22 09:49] LABS: CREATINE KINASE 1493 U/L (26-192)
--- NOTE | 2022-02-22 11:05 | NUR ---
Patient sleeping. No distress observed. Continue to monitor.
[2022-02-22] MEDS ORDERED: NS IV ONE (11:10)
[2022-02-22] MEDS ORDERED: VALPROATE SODIUM IV ONE (11:10)
[2022-02-22] MEDS ORDERED: valproate sod inj 500 MG in normal saline 50ml IV soln 45 ML IV ONE (11:17)
--- NOTE | 2022-02-22 11:35 | NUR ---
Patient speaking on the phone with her son. No distress observed. Continue to monitor.
--- NOTE | 2022-02-22 12:25 | NUR ---
Patient continues to sleep. Patient was awoken 20 minutes ago to eat lunch. Patient rolled back over and has still not eaten. Patient did not eat her breakfast this morning. Continue to monitor.
--- NOTE | 2022-02-22 14:37 | NUR ---
Patient has been attempting to get up and yelling occasionally, but not constantly. Continue to monitor.
--- NOTE | 2022-02-22 15:24 | NUR ---
RN ordered an EKG for 1999 when patient is more calm to check the QT interval.
[2022-02-22] MEDS: quetiapine fumarate ER 300mg tablet PO SCH (16:44)
--- NOTE | 2022-02-22 18:50 | NUR ---
The patient is resting on her bed.
[2022-02-22] MEDS: polyethylene glycol 3350 17gm powd pack PO SCH (20:13)
[2022-02-22] MEDS: divalproex sod 250mg ER (24-hour) tablet PO SCH (20:14)
[2022-02-22] MEDS: Melatonin 3mg tablet PO SCH (20:15)
[2022-02-22] MEDS: montelukast 10mg tablet PO SCH (20:15)
[2022-02-22] MEDS: docusate sod 250mg capsule PO SCH (20:15)
[2022-02-22] MEDS: traZODone 50mg tablet PO SCH (20:15)
[2022-02-22] MEDS: fluvoxamine 25 MG tablet PO SCH (20:15)
[2022-02-22] MEDS: lamoTRIgine 100mg tablet PO SCH (20:16)
--- NOTE | 2022-02-22 20:48 | NUR ---
The patient is resting on her bed. She is conversing with her staff. She is much less agitated. She remains one to one with staff 2nd to very high fall risk. EKG done and reviewed by Dr. Mcallister. Discussed medications and IV fluids and scheduled haldol discontinued as well.
[2022-02-22] MEDS: LORazepam 1 MG tablet PO PRN (22:06)
[2022-02-22] MEDS: ibuprofen 200mg tablet PO PRN (22:06)
--- NOTE | 2022-02-22 23:28 | NUR ---
The patient appears to be sleeping. She remains one to one with staff at all times.
--- NOTE | 2022-02-23 01:04 | NUR ---
The patient appears to be sleeping
--- NOTE | 2022-02-23 03:30 | NUR ---
The patient appears to be sleeping
--- NOTE | 2022-02-23 05:07 | NUR ---
The patient appears to be sleeping. She remains one to one with staff.
--- NOTE | 2022-02-23 07:00 | NUR ---
Receoved Pt resting in chair at her bedside with 1:1 staff with her. Pt quiet and resting at this time.
[2022-02-23] MEDS: LORazepam 1 MG tablet PO SCH ×2 (07:59→21:40)
[2022-02-23] MEDS: benztropine 1mg tablet PO SCH ×2 (07:59→22:06)
[2022-02-23] MEDS: lactobacillus rhamnosus 10,000 MMU CELLS/CAPSULE PO SCH (07:59)
[2022-02-23] MEDS: quetiapine 100mg tablet PO SCH (08:00)
[2022-02-23] MEDS: ferrous sulfate 325mg tablet PO SCH ×2 (08:00→21:43)
[2022-02-23] MEDS: sennosides 8.6mg tablet PO SCH ×2 (08:00→21:42)
[2022-02-23] MEDS: atorvastatin 10mg tablet PO SCH (08:00)
[2022-02-23] MEDS: vortioxetine HBr tablet 5 MG TABLET PO SCH ×2 (08:01→22:06)
[2022-02-23] MEDS: ascorbic acid 500mg tablet PO SCH ×2 (08:01→20:00)
[2022-02-23] MEDS: nicotine 7mg patch - 24hr TD SCH (08:01)
[2022-02-23] MEDS: multivitamins, therapeutics tablet PO SCH (08:01)
[2022-02-23] MEDS: JUVEN Shake w/Arg/Glut/Ca2+Bmb (Juven 19.3gm) pkt 240ml PO SCH ×3 (08:14→18:00)
--- NOTE | 2022-02-23 08:30 | NUR ---
Pt awake and repeatedly yelling "I want my food". Pt given a snack and she responds to redirection for a minute then returns to ruminating on food and yelling.
--- NOTE | 2022-02-23 09:30 | NUR ---
Pt is currently eating breakfast and took AM meds w/u issue. Pt remains on 1:1.
--- NOTE | 2022-02-23 11:26 | NUR ---
Pt sleeping calmly in chair at this time.
--- NOTE | 2022-02-23 12:51 | NUR ---
Pt woke and used comode to urinate with assist. Pt is eating lunch at this time with assist and is cooperative.
--- NOTE | 2022-02-23 15:10 | NUR ---
Pt awake and yelling "I want to leave". Bandage on her face changed and she was cooperative. Pt getting up to chair and returning to bed frequently.
[2022-02-23] MEDS: quetiapine fumarate ER 300mg tablet PO SCH (15:11)
[2022-02-23] MEDS: LORazepam 1 MG tablet PO PRN (15:12)
--- NOTE | 2022-02-23 17:58 | NUR ---
Pt took her 1600 seroquel and received Ativan PRN as well. Pt able to calm and fall asleep after having her hair combed by tech. Pt remains in chair sleeping at this time.
--- NOTE | 2022-02-23 18:15 | NUR ---
DAY SITTER AT BEDSIDE INFORMED ME THAT THEY WERE UNABLE TO OBTAIN VS DUE TO PT AGITATED BEHAVIOR. WILL ATTEMPT LATER DURING THIS SHIFT.
--- NOTE | 2022-02-23 19:08 | NUR ---
PT HAS A SITTER AT BEDSIDE. SHE APPEARS TO BE RESTING COMFORTABLY, BREATHING IS EVEN AND UNLABORED. DINNER TRAY AT BEDSIDE. WILL ENCOURAGE NUTRITION WHEN PT WAKES UP.
[2022-02-23] MEDS: polyethylene glycol 3350 17gm powd pack PO SCH (21:38)
[2022-02-23] MEDS: fluvoxamine 25 MG tablet PO SCH (21:39)
[2022-02-23] MEDS: traZODone 50mg tablet PO SCH (21:39)
[2022-02-23] MEDS: lamoTRIgine 100mg tablet PO SCH (21:40)
[2022-02-23] MEDS: docusate sod 250mg capsule PO SCH (21:40)
[2022-02-23] MEDS: montelukast 10mg tablet PO SCH (21:41)
[2022-02-23] MEDS: divalproex sod 250mg ER (24-hour) tablet PO SCH (21:42)
[2022-02-23] MEDS: Melatonin 3mg tablet PO SCH (21:42)
--- NOTE | 2022-02-23 22:29 | NUR ---
Pt was awaken to administer medication. She was checked to see if inconentent of stool or urine, she as not. Pt was moved over to the bed to help her rest. Pt appears to be agitated, ativan was administered with medications recently. Will continue to monitor.
--- NOTE | 2022-02-23 22:30 | NUR ---
PT AWOKE AND HAS SOME OF HER SHAKE PERSCRIBED BY EDMD. PT TOLERATED WELL.
--- NOTE | 2022-02-24 02:24 | NUR ---
racebook writer agrees with Mee Zhong LPN's assessment.
[2022-02-24] MEDS: LORazepam 1 MG tablet PO PRN (03:00)
[2022-02-24] MEDS ORDERED: haloperidol lactate 5mg/ml inj IM ONE (03:25)
--- NOTE | 2022-02-24 03:35 | NUR ---
Pt is awake and is yelling. It appeared that continuous attempts at redirecting the pt verbally resulted in the pt growing more agitated. Pt displayed this by banging her hands on the tray table, and screaming. An IM injection of haldol was administered to the pt to help calm her down. Sitter is at pt bedside. EDMD and Charge nurse notified.
[2022-02-24] MEDS ORDERED: LORazepam 2 mg/ml vial IM STA (03:58)
[2022-02-24] MEDS: LORazepam 2 mg/ml vial IM ONE ×2 (04:34→05:00)
--- NOTE | 2022-02-24 04:52 | NUR ---
0430 pt moved to Room 13 in main side of ER due to behavior issues, pt given haldol and ativan by nurse in overflow are before pt being moved. 0445 pt sleeping and breathing even and unlabored, sitter at bedside in view of pt.
--- NOTE | 2022-02-24 06:25 | NUR ---
report given to TANYA Fisher
[2022-02-24] MEDS: JUVEN Shake w/Arg/Glut/Ca2+Bmb (Juven 19.3gm) pkt 240ml PO SCH ×3 (08:00→18:00)
[2022-02-24] MEDS: LORazepam 1 MG tablet PO SCH ×2 (11:17→22:49)
[2022-02-24] MEDS: lactobacillus rhamnosus 10,000 MMU CELLS/CAPSULE PO SCH (11:18)
[2022-02-24] MEDS: atorvastatin 10mg tablet PO SCH (11:19)
[2022-02-24] MEDS: ascorbic acid 500mg tablet PO SCH ×2 (11:19→22:39)
[2022-02-24] MEDS: sennosides 8.6mg tablet PO SCH ×2 (11:19→22:40)
[2022-02-24] MEDS: ferrous sulfate 325mg tablet PO SCH ×2 (11:19→22:40)
[2022-02-24] MEDS: vortioxetine HBr tablet 5 MG TABLET PO SCH ×2 (11:20→22:45)
[2022-02-24] MEDS: multivitamins, therapeutics tablet PO SCH (11:40)
[2022-02-24] MEDS: quetiapine 100mg tablet PO SCH (11:40)
[2022-02-24] MEDS: benztropine 1mg tablet PO SCH ×2 (11:41→22:42)
[2022-02-24] MEDS: nicotine 7mg patch - 24hr TD SCH (11:43)
[2022-02-24] MEDS: quetiapine fumarate ER 300mg tablet PO SCH (16:35)
--- NOTE | 2022-02-24 20:00 | NUR ---
Elementary Math Tutor agrees with Mee Zhong, TAYO assessment.
[2022-02-24] MEDS: traZODone 50mg tablet PO SCH (22:37)
[2022-02-24] MEDS: montelukast 10mg tablet PO SCH (22:38)
[2022-02-24] MEDS: Melatonin 3mg tablet PO SCH (22:40)
[2022-02-24] MEDS: lamoTRIgine 100mg tablet PO SCH (22:41)
[2022-02-24] MEDS: polyethylene glycol 3350 17gm powd pack PO SCH (22:42)
[2022-02-24] MEDS: divalproex sod 250mg ER (24-hour) tablet PO SCH (22:43)
[2022-02-24] MEDS: docusate sod 250mg capsule PO SCH (22:43)
[2022-02-24] MEDS: fluvoxamine 25 MG tablet PO SCH (22:45)
[2022-02-25] MEDS: LORazepam 1 MG tablet PO PRN ×2 (04:10→18:03)
[2022-02-25] MEDS: JUVEN Shake w/Arg/Glut/Ca2+Bmb (Juven 19.3gm) pkt 240ml PO SCH ×3 (08:00→18:10)
[2022-02-25] MEDS: LORazepam 1 MG tablet PO SCH ×2 (09:08→20:45)
[2022-02-25] MEDS: quetiapine 100mg tablet PO SCH (09:08)
[2022-02-25] MEDS: benztropine 1mg tablet PO SCH ×2 (09:08→20:48)
[2022-02-25] MEDS: vortioxetine HBr tablet 5 MG TABLET PO SCH ×2 (09:10→20:53)
[2022-02-25] MEDS: atorvastatin 10mg tablet PO SCH (09:10)
[2022-02-25] MEDS: ferrous sulfate 325mg tablet PO SCH ×2 (09:10→20:47)
[2022-02-25] MEDS: multivitamins, therapeutics tablet PO SCH (09:10)
[2022-02-25] MEDS: sennosides 8.6mg tablet PO SCH ×2 (09:10→20:46)
[2022-02-25] MEDS: lactobacillus rhamnosus 10,000 MMU CELLS/CAPSULE PO SCH (09:11)
[2022-02-25] MEDS: ascorbic acid 500mg tablet PO SCH ×2 (09:11→20:47)
[2022-02-25] MEDS: nicotine 7mg patch - 24hr TD SCH (09:13)
--- NOTE | 2022-02-25 10:45 | NUR ---
Pt. transfered from main ER to ER OF. Pt. is sheldon. Pt. transferred from [facility] to [facility] bed.
--- NOTE | 2022-02-25 12:00 | NUR ---
Pt. asleep on left side, normal R&R of respiration, rate 16.
--- NOTE | 2022-02-25 14:00 | NUR ---
Pt. asleep on right side, normal R&R of respirations observed, rate of 18.
--- NOTE | 2022-02-25 15:00 | NUR ---
Pt. awoke and was found to be incotinent. Pt. cleaned and her bed was changed.
--- NOTE | 2022-02-25 16:00 | NUR ---
Pt. walked up and down the nurses station 3 times using walker and 2 person assist.
[2022-02-25] MEDS: quetiapine fumarate ER 300mg tablet PO SCH (17:02)
--- NOTE | 2022-02-25 18:30 | NUR ---
Patient is awake and disoriented. She cries and makes loud noises. a sitter is at bedside.
--- NOTE | 2022-02-25 19:35 | NUR ---
Patient continues to cry, most words are inaudible. Calming measures used by staff.
[2022-02-25] MEDS: docusate sod 250mg capsule PO SCH (20:46)
[2022-02-25] MEDS: Melatonin 3mg tablet PO SCH (20:46)
[2022-02-25] MEDS: montelukast 10mg tablet PO SCH (20:46)
[2022-02-25] MEDS: traZODone 50mg tablet PO SCH (20:47)
[2022-02-25] MEDS: divalproex sod 250mg ER (24-hour) tablet PO SCH (20:48)
[2022-02-25] MEDS: lamoTRIgine 100mg tablet PO SCH (20:48)
--- NOTE | 2022-02-25 20:48 | NUR ---
Patient is compliant with meds, they were crushed and given in applesauce. Patient cooperated.
[2022-02-25] MEDS: fluvoxamine 25 MG tablet PO SCH (20:49)
[2022-02-25] MEDS: polyethylene glycol 3350 17gm powd pack PO SCH (20:49)
--- NOTE | 2022-02-25 22:00 | NUR ---
Patient sleeping quietly, no distress.
--- NOTE | 2022-02-26 06:52 | NUR ---
Patient sleeping supine. No distress observed. Continue to monitor.
[2022-02-26] MEDS: sennosides 8.6mg tablet PO SCH ×2 (08:00→20:23)
--- NOTE | 2022-02-26 08:35 | NUR ---
Patient continues to sleep. Patient has a sitter. No distress observed. Continue to monitor.
--- NOTE | 2022-02-26 08:55 | NUR ---
Techs are changing patient and changing her bed. Patient urinted in her bed. No distress observed.
--- NOTE | 2022-02-26 09:20 | NUR ---
Patient eating slowly. Patient yelling out now and then. Continue to monitor.
[2022-02-26] MEDS: benztropine 1mg tablet PO SCH ×2 (10:11→20:24)
[2022-02-26] MEDS: JUVEN Shake w/Arg/Glut/Ca2+Bmb (Juven 19.3gm) pkt 240ml PO SCH ×3 (10:11→17:59)
[2022-02-26] MEDS: LORazepam 1 MG tablet PO SCH ×2 (10:11→20:24)
[2022-02-26] MEDS: ferrous sulfate 325mg tablet PO SCH ×2 (10:12→20:00)
[2022-02-26] MEDS: atorvastatin 10mg tablet PO SCH (10:12)
[2022-02-26] MEDS: vortioxetine HBr tablet 5 MG TABLET PO SCH ×2 (10:12→20:28)
[2022-02-26] MEDS: ascorbic acid 500mg tablet PO SCH ×2 (10:12→20:00)
[2022-02-26] MEDS: multivitamins, therapeutics tablet PO SCH (10:12)
[2022-02-26] MEDS: quetiapine 100mg tablet PO SCH (10:12)
[2022-02-26] MEDS: lactobacillus rhamnosus 10,000 MMU CELLS/CAPSULE PO SCH (10:12)
[2022-02-26] MEDS: nicotine 7mg patch - 24hr TD SCH (10:13)
--- NOTE | 2022-02-26 11:17 | NUR ---
Patient continues to sleep. Equal and nonlabored respirations. Continue to monitor.
--- NOTE | 2022-02-26 12:22 | NUR ---
Patient eating lunch very slowly. Patient appears drowsy. Continue to monitor.
--- NOTE | 2022-02-26 15:17 | NUR ---
Patient sitting at the edge of the bed. RN sitting in front of patient. Patient's head usually hangs forward but patient having difficulty holding her head up. Patient also hardly eating. RN removed I.V. heplock which this RN had placed on the first february. Continue to monitor.
[2022-02-26] MEDS: quetiapine fumarate ER 300mg tablet PO SCH (16:38)
[2022-02-26] MEDS: lamoTRIgine 100mg tablet PO SCH (20:23)
[2022-02-26] MEDS: traZODone 50mg tablet PO SCH (20:23)
[2022-02-26] MEDS: montelukast 10mg tablet PO SCH (20:24)
[2022-02-26] MEDS: docusate sod 250mg capsule PO SCH (20:24)
[2022-02-26] MEDS: Melatonin 3mg tablet PO SCH (20:24)
[2022-02-26] MEDS: divalproex sod 250mg ER (24-hour) tablet PO SCH (20:24)
[2022-02-26] MEDS: fluvoxamine 25 MG tablet PO SCH (20:24)
[2022-02-26] MEDS: polyethylene glycol 3350 17gm powd pack PO SCH (20:26)
--- NOTE | 2022-02-26 21:25 | NUR ---
Pt is currently sleeping, will continue to monitor.
--- NOTE | 2022-02-26 21:25 | NUR ---
Pt sitting up with sitter eating dinner, pt took all HS medications with applesauce.
--- NOTE | 2022-02-27 00:16 | NUR ---
Pt appears to be sleeping.
--- NOTE | 2022-02-27 02:47 | NUR ---
Pt appears to be sleeping.
--- NOTE | 2022-02-27 05:02 | NUR ---
Pt awake and resting quietly, sitter at bedside.
--- NOTE | 2022-02-27 06:54 | NUR ---
Patient is awake and laying in bed. Patient is whining and crying. Patient wants to get out of bed. Patient is unsteady on her feet and requires 2 person max assist. Patient keeps kicking her legs over the bed rail. Continue to monitor.
[2022-02-27] MEDS: nicotine 7mg patch - 24hr TD SCH (08:00)
[2022-02-27] MEDS: JUVEN Shake w/Arg/Glut/Ca2+Bmb (Juven 19.3gm) pkt 240ml PO SCH ×3 (08:00→18:27)
[2022-02-27] MEDS: ferrous sulfate 325mg tablet PO SCH ×2 (08:00→20:31)
[2022-02-27] MEDS: atorvastatin 10mg tablet PO SCH (08:51)
[2022-02-27] MEDS: ascorbic acid 500mg tablet PO SCH ×2 (08:51→20:31)
[2022-02-27] MEDS: vortioxetine HBr tablet 5 MG TABLET PO SCH ×2 (08:51→20:31)
[2022-02-27] MEDS: lactobacillus rhamnosus 10,000 MMU CELLS/CAPSULE PO SCH (08:51)
[2022-02-27] MEDS: multivitamins, therapeutics tablet PO SCH (08:51)
[2022-02-27] MEDS: quetiapine 100mg tablet PO SCH (08:51)
[2022-02-27] MEDS: LORazepam 1 MG tablet PO SCH (08:52)
[2022-02-27] MEDS: benztropine 1mg tablet PO SCH ×2 (08:52→20:31)
[2022-02-27] MEDS: sennosides 8.6mg tablet PO SCH ×2 (08:52→20:31)
--- NOTE | 2022-02-27 09:00 | NUR ---
Physical Therapy evaluating patient and got patient to stand with max assist and take a step with a walker. Continue to monitor.
--- NOTE | 2022-02-27 11:03 | NUR ---
Patient sleeping supine. No distress observed. Continue to monitor.
[2022-02-27 11:05] LABS: VALPROATE 46 UG/ML (50-100)
--- NOTE | 2022-02-27 12:38 | NUR ---
Patient slept through lunch. No distress observed. Continue to monitor.
[2022-02-27 14:06] LABS: ALANINE AMINOTRANSFERASE 40 U/L (12-78); ALBUMIN 3.3 G/DL (3.4-5.0); ALKALINE PHOSPHATASE 66 IU/L (46-116); ANION GAP 9 (8-16); ASPARTATE AMINO TRANSFERASE 40 U/L (10-37); BILIRUBIN,TOTAL 0.3 MG/DL (0.1-1.0); BLOOD UREA NITROGEN 25 MG/DL (7-18); BUN/CREATININE RATIO 32.1 (6.6-38.0); CALCIUM 9.3 MG/DL (8.5-10.1); CHLORIDE 102 MMOL/L (99-107); CREATININE 0.78 MG/DL (0.40-0.90); GLUCOSE 125 MG/DL (70-104); POTASSIUM 3.8 MMOL/L (3.5-5.1); SODIUM 141 MMOL/L (135-145); TOTAL CARBON DIOXIDE 29.8 MMOL/L (24-32); TOTAL PROTEIN 6.6 G/DL (6.4-8.2); eGFR 79 ML/MIN
[2022-02-27 14:11] LABS: CREATINE KINASE 1559 U/L (26-192)
--- NOTE | 2022-02-27 14:55 | NUR ---
Patient ate her lunch. No distress observed. Continue to monitor.
--- NOTE | 2022-02-27 15:50 | NUR ---
Patient awoke. No distress observed. Continue to monitor.
[2022-02-27] MEDS: quetiapine fumarate ER 300mg tablet PO SCH (16:55)
--- NOTE | 2022-02-27 19:00 | NUR ---
One to one with the patient. The patient's speech is unclear. She was assisted with turning in bed. She remains one to one with staff.
[2022-02-27] MEDS: lamoTRIgine 100mg tablet PO SCH (20:31)
[2022-02-27] MEDS: divalproex sod 250mg ER (24-hour) tablet PO SCH (20:31)
[2022-02-27] MEDS: fluvoxamine 25 MG tablet PO SCH (20:31)
[2022-02-27] MEDS: Melatonin 3mg tablet PO SCH (20:31)
[2022-02-27] MEDS: montelukast 10mg tablet PO SCH (20:32)
[2022-02-27] MEDS: docusate sod 250mg capsule PO SCH (20:32)
[2022-02-27] MEDS: traZODone 50mg tablet PO SCH (20:32)
[2022-02-27] MEDS: polyethylene glycol 3350 17gm powd pack PO SCH (20:32)
--- NOTE | 2022-02-27 22:10 | NUR ---
The patient up to use the bedside commode and had a BM. She is currently sitting up in the chair.
--- NOTE | 2022-02-27 23:23 | NUR ---
The patient appears to be sleeping
--- NOTE | 2022-02-28 01:16 | NUR ---
The patient appears to be sleeping. She remains one to one with staff.
--- NOTE | 2022-02-28 03:04 | NUR ---
The patient appears to be sleeping
--- NOTE | 2022-02-28 05:06 | NUR ---
The patient appears to be sleeping
--- NOTE | 2022-02-28 06:57 | NUR ---
Patient sleeping supine with head of bed elevated. No distress observed. Patient has a sitter at bedside. Continue to monitor.
[2022-02-28] MEDS: ferrous sulfate 325mg tablet PO SCH ×2 (08:00→20:00)
[2022-02-28] MEDS: lactobacillus rhamnosus 10,000 MMU CELLS/CAPSULE PO SCH (08:00)
[2022-02-28] MEDS: ascorbic acid 500mg tablet PO SCH ×2 (08:00→20:00)
[2022-02-28] MEDS: multivitamins, therapeutics tablet PO SCH (08:00)
--- NOTE | 2022-02-28 08:22 | NUR ---
Patient being fed breakfast. No distress observed. Continue to monitor.
[2022-02-28] MEDS: quetiapine 100mg tablet PO SCH (08:52)
[2022-02-28] MEDS: atorvastatin 10mg tablet PO SCH (08:52)
[2022-02-28] MEDS: nicotine 7mg patch - 24hr TD SCH (08:52)
[2022-02-28] MEDS: vortioxetine HBr tablet 5 MG TABLET PO SCH ×2 (08:52→20:42)
[2022-02-28] MEDS: benztropine 1mg tablet PO SCH ×2 (08:52→20:41)
[2022-02-28] MEDS: sennosides 8.6mg tablet PO SCH ×2 (08:52→20:41)
[2022-02-28] MEDS: JUVEN Shake w/Arg/Glut/Ca2+Bmb (Juven 19.3gm) pkt 240ml PO SCH ×3 (08:53→18:14)
[2022-02-28] MEDS: LORazepam 1 MG tablet PO PRN (09:37)
--- NOTE | 2022-02-28 10:10 | NUR ---
Patient continues to moan/fuss loudly over and over. Continue to monitor.
--- NOTE | 2022-02-28 10:11 | NUR ---
RN gave patient 2 mg Ativan 30 minutes ago for agitation. Continue to monitor.
--- NOTE | 2022-02-28 10:55 | NUR ---
P.T. evaluating patient. Patient is up on her feet and walking with a walker. Continue to monitor.
--- NOTE | 2022-02-28 12:10 | NUR ---
Patient's lunch is here but patient is sleeping. Patient walked 3 laps around the nurses station and behind with P.T. Patient was also able to stand up from a sitting position using the arms of the chairs to assist her up. Continue to monitor.
--- NOTE | 2022-02-28 14:14 | NUR ---
Patient is laying quietly. No distress observed. Continue to monitor.
[2022-02-28] MEDS: quetiapine fumarate ER 300mg tablet PO SCH (16:08)
--- NOTE | 2022-02-28 16:11 | NUR ---
Patient awake and quiet at times and fussing at times. Continue to monitor.
--- NOTE | 2022-02-28 18:45 | NUR ---
Tech feeding patient her dinner. No distress observed. Continue to monitor.
--- NOTE | 2022-02-28 20:09 | NUR ---
Patient fussing and attempting to get out of her bed. Patient had been in the chair for a while. Continue to monitor.
[2022-02-28] MEDS: docusate sod 250mg capsule PO SCH (20:41)
[2022-02-28] MEDS: montelukast 10mg tablet PO SCH (20:41)
[2022-02-28] MEDS: lamoTRIgine 100mg tablet PO SCH (20:41)
[2022-02-28] MEDS: divalproex sod 250mg ER (24-hour) tablet PO SCH (20:41)
[2022-02-28] MEDS: fluvoxamine 25 MG tablet PO SCH (20:41)
[2022-02-28] MEDS: polyethylene glycol 3350 17gm powd pack PO SCH (20:42)
--- NOTE | 2022-02-28 21:05 | NUR ---
Patient was fussing. RN sat with patient and gave her her medication. Patient calmed down after receiving meds. Sitter at bedside. Continue to monitor.
--- NOTE | 2022-02-28 23:07 | NUR ---
Patient sleeping supine. No distress observed. Continue to monitor.
--- NOTE | 2022-03-01 01:02 | NUR ---
Patient sleeping supine. Sitter at bedside. No distress observed. Continue to monitor.
--- NOTE | 2022-03-01 03:01 | NUR ---
Patient sleeping on right side. No distress observed. Continue to monitor.
--- NOTE | 2022-03-01 03:25 | NUR ---
Patient awake due to another patient yelling and banging all night. Rosa is whining loudly and wanting to get out of bed. Continue to monitor.
[2022-03-01] MEDS: LORazepam 1 MG tablet PO PRN ×3 (04:18→22:47)
--- NOTE | 2022-03-01 05:09 | NUR ---
Patient is fussing/moaning non-stop. Patient does not take direction. Continue to monitor.
--- NOTE | 2022-03-01 06:30 | NUR ---
Received patient who was sleeping in bed at 0630 and appears comfortable.
[2022-03-01] MEDS: multivitamins, therapeutics tablet PO SCH (08:00)
[2022-03-01] MEDS: sennosides 8.6mg tablet PO SCH ×2 (08:00→20:28)
[2022-03-01] MEDS: ascorbic acid 500mg tablet PO SCH ×2 (08:00→20:28)
[2022-03-01] MEDS: JUVEN Shake w/Arg/Glut/Ca2+Bmb (Juven 19.3gm) pkt 240ml PO SCH ×3 (08:00→18:30)
[2022-03-01] MEDS: ferrous sulfate 325mg tablet PO SCH ×2 (08:00→20:28)
[2022-03-01] MEDS: lactobacillus rhamnosus 10,000 MMU CELLS/CAPSULE PO SCH (08:00)
[2022-03-01] MEDS: atorvastatin 10mg tablet PO SCH (08:00)
--- NOTE | 2022-03-01 08:00 | NUR ---
Patient incontinent of urine at this time. Linen change done and ja-care given and patient is resting in bed. Patient putting both legs outside of the bed at all times. Attempt to reposition her are futile. Attempted to redirect the patient and then she started yelling loudly. Unable to understand what she is saying at this time. Patient has large black area on her left cheek. Breakfast arrived and patient was fed breakfast. Oral medications given at 0830 and patient took all medications with oatmeal. Patient resting at this time.
[2022-03-01] MEDS: quetiapine 100mg tablet PO SCH (09:04)
[2022-03-01] MEDS: nicotine 7mg patch - 24hr TD SCH (09:04)
[2022-03-01] MEDS: benztropine 1mg tablet PO SCH ×2 (09:04→20:28)
[2022-03-01] MEDS: vortioxetine HBr tablet 5 MG TABLET PO SCH ×2 (09:05→20:28)
--- NOTE | 2022-03-01 10:00 | NUR ---
Patient still yelling loudly at times. Patient's depends changed and full linen change done. PT here at bedside and patient ambulated using a walker and PT Standby. Patient returned to bed. NVDS (Stewart) visited early this morning with patient to attempt to find placement for patient outside of [facility]. Spoke with Dr. Mcallister and received order for Ativan 2mg po now. Administered dose of Ativan 2mg po at 1000 and patient relaxed and fell to sleep after approximately 45 minutes.
--- NOTE | 2022-03-01 12:13 | NUR ---
Patient starting to yell out from time to time. Lunch arrived. Will attempt to feed patient her lunch at this time.
--- NOTE | 2022-03-01 14:30 | NUR ---
Patient fell asleep after refusing lunch today. Depends changed and ja-care provided to patient. Patient turned every 2 hours or more often. Patient is resting comfortably at this time. Sitter at this time.
[2022-03-01] MEDS: quetiapine fumarate ER 300mg tablet PO SCH (16:52)
--- NOTE | 2022-03-01 17:51 | NUR ---
Patient's Depends changed and had a large amount of urine. Mari Care provided to the patient. Bedding and gown changed and new Depends put on the patient. Patient appears comfortable after being repositioned in the bed with HOB up at this time and ready for dinner tonight. Sitter Wilfred at bedside with the patient.
--- NOTE | 2022-03-01 19:00 | NUR ---
The patient is restless. She is one to one with staff. She was assisted with with feeding.
[2022-03-01] MEDS: docusate sod 250mg capsule PO SCH (20:28)
[2022-03-01] MEDS: fluvoxamine 25 MG tablet PO SCH (20:28)
[2022-03-01] MEDS: polyethylene glycol 3350 17gm powd pack PO SCH (20:28)
[2022-03-01] MEDS: lamoTRIgine 100mg tablet PO SCH (20:28)
[2022-03-01] MEDS: divalproex sod 250mg ER (24-hour) tablet PO SCH (20:28)
[2022-03-01] MEDS: montelukast 10mg tablet PO SCH (20:28)
--- NOTE | 2022-03-01 21:00 | NUR ---
Patient continues to be restless. When asked she was able to state that she was in the hospital but did not know the month and year.
--- NOTE | 2022-03-01 21:30 | NUR ---
patient moved to bed 14 in the ER
[2022-03-01] MEDS: traZODone 50mg tablet PO PRN (22:47)
--- NOTE | 2022-03-02 06:50 | NUR ---
Patient moaning loudly at beginning of shift, trying to get out of bed.
--- NOTE | 2022-03-02 07:45 | NUR ---
Patient has fallen asleep. No s/sx of distress.
[2022-03-02] MEDS: JUVEN Shake w/Arg/Glut/Ca2+Bmb (Juven 19.3gm) pkt 240ml PO SCH ×3 (08:00→18:00)
[2022-03-02] MEDS: ascorbic acid 500mg tablet PO SCH ×2 (08:00→21:12)
[2022-03-02] MEDS: lactobacillus rhamnosus 10,000 MMU CELLS/CAPSULE PO SCH (08:03)
[2022-03-02] MEDS: multivitamins, therapeutics tablet PO SCH (08:03)
[2022-03-02] MEDS: sennosides 8.6mg tablet PO SCH ×2 (08:04→21:12)
[2022-03-02] MEDS: vortioxetine HBr tablet 5 MG TABLET PO SCH ×2 (08:04→21:12)
[2022-03-02] MEDS: atorvastatin 10mg tablet PO SCH (08:04)
[2022-03-02] MEDS: benztropine 1mg tablet PO SCH ×2 (08:04→21:13)
[2022-03-02] MEDS: quetiapine 100mg tablet PO SCH (08:04)
[2022-03-02] MEDS: ferrous sulfate 325mg tablet PO SCH ×2 (08:05→21:12)
[2022-03-02] MEDS: nicotine 7mg patch - 24hr TD SCH (11:09)
--- NOTE | 2022-03-02 11:42 | NUR ---
Patient appears to be sleeping. Breathing unlabored. No s/sx of distress.
--- NOTE | 2022-03-02 13:00 | NUR ---
Wound care is with patient changing dressings.
--- NOTE | 2022-03-02 13:42 | NUR ---
PRESSURE ULCER EDUCATION: DEFINITION: A pressure ulcer is an area of skin that breaks down when you stay in one position too long. The constant pressure against the skin reduces the blood flow to that area and the affected tissue dies. CAUSES: "Being bedridden or in a wheelchair "Fragile skin "Having a chronic condition, such as diabetes or vascular disease "Inability to move certain parts of your body without assistance "Older age "Incontinence of urine or stool SYMPTOMS: "A reddened area that DOES NOT turn white when pressed on - this can be the beginning of a pressure ulcer "A blister, deep sore or a crater - these can be advanced pressure ulcers FIRST AID: "Relieve the pressure on this area "Keep the area clean and dry "Call your primary doctor if you see any of the above symptoms "DO NOT massage the area "DO NOT use a donut shaped or ring shaped pillow- these actually interfere with the blood flow and cause complications PREVENTION: "Check for pressure ulcers everyday "Change position at least every two hours to relieve pressure "Use items that help relieve pressure- pillows, sheepskin, foam padding, and powders. "Keep skin clean and dry "Eat healthy well balanced meals "Exercise daily IF YOU SEE ANY OF THESE SYMPTOMS WHILE IN THE HOSPITAL - TELL YOUR NURSE IMMEDIATELY. IF YOU SEE ANY OF THESE SYMPTOMS WHILE AT HOME OR HAVE ANY QUESTIONS OR CONCERNS ABOUT PRESSURE ULCERS - CALL YOUR PRIMARY DOCTOR IMMEDIATELY. Addendum: 03/02/22 at 1343 by Selina Cerda RN Amended: Links added.
--- NOTE | 2022-03-02 13:47 | NUR ---
Patient appears to be sleeping.
[2022-03-02] MEDS: quetiapine fumarate ER 300mg tablet PO SCH (16:33)
[2022-03-02] MEDS: LORazepam 1 MG tablet PO PRN (16:34)
--- NOTE | 2022-03-02 16:39 | NUR ---
Patient starting to get agitated. PRN Ativan 2mg PO provided.
--- NOTE | 2022-03-02 19:00 | NUR ---
The patient remains one to one 2nd to elevated fall risk. She presents as sedated from after noon medications and had to be fed her dinner.
[2022-03-02] MEDS: divalproex sod 250mg ER (24-hour) tablet PO SCH (21:12)
[2022-03-02] MEDS: lamoTRIgine 100mg tablet PO SCH (21:12)
[2022-03-02] MEDS: docusate sod 250mg capsule PO SCH (21:12)
[2022-03-02] MEDS: montelukast 10mg tablet PO SCH (21:12)
[2022-03-02] MEDS: fluvoxamine 25 MG tablet PO SCH (21:12)
[2022-03-02] MEDS: polyethylene glycol 3350 17gm powd pack PO SCH (21:13)
--- NOTE | 2022-03-02 21:36 | NUR ---
The patient is sleeping on her bed. She continues to be sleepy. She took her HS medications. Spoke with Dr. Dia and received order for a psychiatric consult for medication adjustment.
--- NOTE | 2022-03-02 22:02 | NUR ---
PSYCHIATRIC CONSULT ORDERED FOR MEDICATION EVALUATION
--- NOTE | 2022-03-03 00:13 | NUR ---
The patient appears to be sleeping
--- NOTE | 2022-03-03 01:35 | NUR ---
The patient appears to be sleeping
--- NOTE | 2022-03-03 03:42 | NUR ---
The patient appears to be sleeping
--- NOTE | 2022-03-03 05:09 | NUR ---
The patient is awake and resting on her bed.
--- NOTE | 2022-03-03 07:16 | NUR ---
Received report from TANYA Mireles. Pt resting quietly in bed with sitter by bedside. No noted distress.
[2022-03-03] MEDS: lactobacillus rhamnosus 10,000 MMU CELLS/CAPSULE PO SCH (07:46)
[2022-03-03] MEDS: sennosides 8.6mg tablet PO SCH ×2 (07:46→20:49)
[2022-03-03] MEDS: atorvastatin 10mg tablet PO SCH (07:46)
[2022-03-03] MEDS: quetiapine 100mg tablet PO SCH (07:46)
[2022-03-03] MEDS: ascorbic acid 500mg tablet PO SCH ×2 (07:46→20:00)
[2022-03-03] MEDS: vortioxetine HBr tablet 5 MG TABLET PO SCH ×2 (07:46→20:52)
[2022-03-03] MEDS: benztropine 1mg tablet PO SCH ×2 (07:47→20:48)
[2022-03-03] MEDS: multivitamins, therapeutics tablet PO SCH (07:47)
[2022-03-03] MEDS: ferrous sulfate 325mg tablet PO SCH ×2 (07:47→20:49)
[2022-03-03] MEDS: JUVEN Shake w/Arg/Glut/Ca2+Bmb (Juven 19.3gm) pkt 240ml PO SCH ×3 (08:00→18:00)
[2022-03-03] MEDS: nicotine 7mg patch - 24hr TD SCH (08:02)
--- NOTE | 2022-03-03 08:14 | NUR ---
Pt was starting to become loud, moaning and attempting to get out of bed. 1:1 done at bedside and medications administered in applesauce. Pt has calmed down at this time. Pt repositioned and breakfast tray left with sitter to assist with eating.
--- NOTE | 2022-03-03 09:14 | NUR ---
Pt resting quietly with eyes closed. Noted rise and fall of chest.
--- NOTE | 2022-03-03 11:00 | NUR ---
Pt resting quietly in bed. No distress noted. Noted rise and fall of chest.
--- NOTE | 2022-03-03 11:17 | NUR ---
FNRC here with Solis Ambrocio, Community Quality Improvement Specialist with the [facility] accessing patient.
--- NOTE | 2022-03-03 12:21 | NUR ---
Pt repositioned and lunch is being fed by sitter. No distress noted.
--- NOTE | 2022-03-03 15:15 | NUR ---
Pt has continuously attempted to place her legs over her bed rails in attempt to get out of bed, unfortunatly the pt is not steady enough to ambulate at this time.
--- NOTE | 2022-03-03 16:00 | NUR ---
1600 medications adminsitered, pt incontinent of urine. Pt cleaned up and put in clean brief. Pt noticieably yelling out but is unable to state why. Nurse was able to calm pt down.
[2022-03-03] MEDS: quetiapine fumarate ER 300mg tablet PO SCH (16:08)
--- NOTE | 2022-03-03 17:23 | NUR ---
Pt has a rash to left groin from urinary incontinence, area cleaned and dried and barrier cream applied.
--- NOTE | 2022-03-03 18:30 | NUR ---
Patient is sleeping quietly, mid fowlers in bed. Sitter at bedside.
--- NOTE | 2022-03-03 19:18 | NUR ---
Patient repositioned in bed. Sitter at bedside. She returns to sleep.
--- NOTE | 2022-03-03 20:00 | NUR ---
Patient voided a large amount of urine in her brief. She was cleaned and changed.
[2022-03-03] MEDS: fluvoxamine 25 MG tablet PO SCH (20:48)
[2022-03-03] MEDS: montelukast 10mg tablet PO SCH (20:48)
[2022-03-03] MEDS: docusate sod 250mg capsule PO SCH (20:49)
[2022-03-03] MEDS: lamoTRIgine 100mg tablet PO SCH (20:49)
[2022-03-03] MEDS: divalproex sod 250mg ER (24-hour) tablet PO SCH (20:49)
[2022-03-03] MEDS: LORazepam 1 MG tablet PO PRN (20:49)
[2022-03-03] MEDS: polyethylene glycol 3350 17gm powd pack PO SCH (21:00)
--- NOTE | 2022-03-03 21:18 | NUR ---
Patient consumed her evening medications crushed and mixed in yogurt.
--- NOTE | 2022-03-03 23:26 | NUR ---
breaking primary RN for lunch patient in bed eyes closed rr even un labored no observable s/s of acute stress at this time
--- NOTE | 2022-03-04 00:37 | NUR ---
Patient is sleeping quietly, mid fowlers position. Sitter is at bedside.
[2022-03-04] MEDS: ferrous sulfate 325mg tablet PO SCH ×2 (07:30→19:28)
[2022-03-04] MEDS: quetiapine 100mg tablet PO SCH (07:30)
[2022-03-04] MEDS: benztropine 1mg tablet PO SCH ×2 (07:30→19:29)
[2022-03-04] MEDS: sennosides 8.6mg tablet PO SCH ×2 (07:30→19:31)
[2022-03-04] MEDS: multivitamins, therapeutics tablet PO SCH (07:30)
[2022-03-04] MEDS: lactobacillus rhamnosus 10,000 MMU CELLS/CAPSULE PO SCH (07:30)
[2022-03-04] MEDS: vortioxetine HBr tablet 5 MG TABLET PO SCH ×2 (07:31→19:27)
[2022-03-04] MEDS: atorvastatin 10mg tablet PO SCH (07:31)
[2022-03-04] MEDS: ascorbic acid 500mg tablet PO SCH ×2 (07:57→20:59)
[2022-03-04] MEDS: nicotine 7mg patch - 24hr TD SCH (08:03)
[2022-03-04] MEDS: JUVEN Shake w/Arg/Glut/Ca2+Bmb (Juven 19.3gm) pkt 240ml PO SCH ×3 (08:05→18:20)
[2022-03-04] MEDS: LORazepam 1 MG tablet PO PRN ×2 (08:08→22:33)
[2022-03-04] MEDS ORDERED: diphenhydrAMINE 50 mg/ml inj IM ONE (09:15)
[2022-03-04] MEDS ORDERED: haloperidol lactate 5mg/ml inj IM ONE (10:25)
[2022-03-04] MEDS ORDERED: LORazepam 2 mg/ml vial IM ONE (10:25)
[2022-03-04] MEDS: quetiapine fumarate ER 300mg tablet PO SCH (16:47)
[2022-03-04] MEDS: fluvoxamine 25 MG tablet PO SCH (19:27)
[2022-03-04] MEDS: divalproex sod 250mg ER (24-hour) tablet PO SCH (19:28)
[2022-03-04] MEDS: docusate sod 250mg capsule PO SCH (19:28)
[2022-03-04] MEDS: traZODone 50mg tablet PO PRN (19:29)
[2022-03-04] MEDS: montelukast 10mg tablet PO SCH (19:29)
[2022-03-04] MEDS: polyethylene glycol 3350 17gm powd pack PO SCH (19:30)
[2022-03-04] MEDS: lamoTRIgine 100mg tablet PO SCH (21:42)
--- NOTE | 2022-03-04 22:41 | NUR ---
pt agitated and yelling, pt given ativan and food, tolerated well, warm blanket given
--- NOTE | 2022-03-05 05:44 | NUR ---
pt has not voided yet this shift, abd soft and none tender to palpation, pt in no distress, skin warm and dry
[2022-03-05] MEDS ORDERED: normal saline 1000ml 1,000 ML IV ONE (06:20)
--- NOTE | 2022-03-05 06:33 | NUR ---
Patient awake and moving. No distress observed. Continue to monitor.
--- NOTE | 2022-03-05 07:05 | NUR ---
RN placed a 17 colton to left forearm. Patient tolerated will difficulty. Per shift supervisor film processing, patient had not urinated all night and hardly ate and drank yesterday. RN requested I.V. fluid for patient from Dr. Awad who also ordered labs. I.V. N.S. is running in. Continue to monitor.
[2022-03-05 07:23] LABS: BASOPHILS % (AUTO) 0.3 % (0-1); EOSINOPHILS # (AUTO) 0.1 X10'3 (0-0.9); EOSINOPHILS % (AUTO) 1.9 % (0-6); HEMATOCRIT 43.9 % (35.0-45.0); HEMOGLOBIN 14.6 g/dl (12.0-16.0); LYMPHOCYTES # (AUTO) 1.4 X10'3 (1.1-4.8); MEAN CORPUSCULAR HEMOGLOBIN 30.2 PG (27.0-31.0); MEAN CORPUSCULAR HGB CONC 33.2 g/dL (33.0-36.5); MEAN PLATELET VOLUME 8.7 FL (7.4-10.4); MONOCYTES # (AUTO) 0.5 X10'3 (0-0.9); NEUTROPHILS # (AUTO) 2.8 X10'3 (1.8-7.7); NEUTROPHILS % (AUTO) 57.8 % (42-75); PLATELET COUNT 150 X10'3 (140-440); RED BLOOD COUNT 4.82 X10'6 (4.20-5.60); RED CELL DISTRIBUTION WIDTH 12.3 % (11.5-14.5); WHITE BLOOD COUNT 4.8 X10'3 (4.5-11.0)
[2022-03-05 07:24] LABS: ALANINE AMINOTRANSFERASE 38 U/L (12-78); ALBUMIN 3.6 G/DL (3.4-5.0); ALKALINE PHOSPHATASE 62 IU/L (46-116); ANION GAP 8 (8-16); ASPARTATE AMINO TRANSFERASE 40 U/L (10-37); BILIRUBIN,TOTAL 0.5 MG/DL (0.1-1.0); BLOOD UREA NITROGEN 29 MG/DL (7-18); BUN/CREATININE RATIO 40.8 (6.6-38.0); CALCIUM 9.7 MG/DL (8.5-10.1); CHLORIDE 104 MMOL/L (99-107); CREATININE 0.71 MG/DL (0.40-0.90); GLUCOSE 87 MG/DL (70-104); POTASSIUM 4.1 MMOL/L (3.5-5.1); SODIUM 143 MMOL/L (135-145); TOTAL CARBON DIOXIDE 31.1 MMOL/L (24-32); TOTAL PROTEIN 7.3 G/DL (6.4-8.2); eGFR 88 ML/MIN
[2022-03-05] MEDS: JUVEN Shake w/Arg/Glut/Ca2+Bmb (Juven 19.3gm) pkt 240ml PO SCH ×3 (08:00→17:59)
[2022-03-05] MEDS: atorvastatin 10mg tablet PO SCH (08:03)
[2022-03-05] MEDS: ferrous sulfate 325mg tablet PO SCH ×2 (08:15→20:06)
[2022-03-05] MEDS: sennosides 8.6mg tablet PO SCH ×2 (08:15→20:06)
[2022-03-05] MEDS: benztropine 1mg tablet PO SCH ×2 (08:16→20:06)
[2022-03-05] MEDS: quetiapine 100mg tablet PO SCH (08:16)
[2022-03-05] MEDS: multivitamins, therapeutics tablet PO SCH (08:16)
[2022-03-05] MEDS: lactobacillus rhamnosus 10,000 MMU CELLS/CAPSULE PO SCH (08:17)
[2022-03-05] MEDS: ascorbic acid 500mg tablet PO SCH ×2 (08:18→20:06)
[2022-03-05] MEDS: nicotine 7mg patch - 24hr TD SCH (08:18)
[2022-03-05] MEDS: vortioxetine HBr tablet 5 MG TABLET PO SCH ×2 (08:19→20:07)
--- NOTE | 2022-03-05 08:20 | NUR ---
Patient yelling out for about 1 hour. RN gave ear plugs to closest patient. Continue to monitor.
[2022-03-05] MEDS: LORazepam 1 MG tablet PO PRN ×2 (08:22→20:36)
--- NOTE | 2022-03-05 09:30 | NUR ---
RN sitting with patient and feeding her her oatmeal and her Power Pudding. Patient ate all of the pudding and 1/2 of the oatmeal. RN gave patient sips of her coffee. Continue to monitor.
--- NOTE | 2022-03-05 10:17 | NUR ---
Patient awake and calm at this time. Patient has a sitter. Continue to monitor.
--- NOTE | 2022-03-05 10:55 | NUR ---
Physical Therapy with patient. Patient standing with walker. RN and tech cleaned patient. Patient had large amount of urine. Continue to monitor.
--- NOTE | 2022-03-05 11:21 | NUR ---
Patient walked to bed 22 and back to her bed with PT. Continue to monitor.
--- NOTE | 2022-03-05 12:05 | NUR ---
Patient yelling out and kicking her feet over the bed rails. Patient repositioned to sitting position. Patient calm for 5 minutes and started yelling and squirming her self down to laying position. Continue to monitor.
--- NOTE | 2022-03-05 14:04 | NUR ---
Patient continues to yell out and kicking feet over the rail. Sitter at bedside attempting to calm patient. Continue to monitor.
--- NOTE | 2022-03-05 14:36 | NUR ---
Patient yelling has slowed down and RN believes patient is tired. Sitter at bedside. Continue to monitor.
--- NOTE | 2022-03-05 14:49 | NUR ---
Patient yelling loudly and kicking feet over her bed rails. Sitter at bedside and attempting to comfort patient. Continue to monitor.
--- NOTE | 2022-03-05 15:13 | NUR ---
RN spent time with patient to give sitter a break. RN rubbed good smelling lotion on her hands and Patient was smelling her hands. Patient moving around a lot in bed. RN talking to patient and explaining to her why she is here. Patient did calm down a little. Continue to monitor.
[2022-03-05] MEDS: quetiapine fumarate ER 300mg tablet PO SCH (16:53)
[2022-03-05] MEDS ORDERED: sodium bicarbonate (8.4%) 1 mEq/ml syringe IV ONE (17:05)
[2022-03-05] MEDS ORDERED: sodium bicarbonate (8.4%) inj. 1 MEQ/ML ML IV ONE (17:10)
[2022-03-05] MEDS: normal saline 1000ml 1,000 ML IV SCH ×2 (17:19→19:05)
--- NOTE | 2022-03-05 17:26 | NUR ---
RN asked Dr Garcia about more fluids for Patient. Dr. Garcia ordered I.V. bolus and 1 amp bicarb 50 Meq I.V. (slow push) due to elevated CPK on 02/27. Dr Garcia ordered a CPK for 03/05 0800. Patient tolerated well. Continue to monitor.
--- NOTE | 2022-03-05 18:00 | NUR ---
Patient has been awake and quiet for about 30-40 minutes. Sitter at bedside. Continue to monitor.
--- NOTE | 2022-03-05 18:40 | NUR ---
Pt laying in bed with sitter at bedside. Pt yells out frequently. Pt has IV to right forearm.
--- NOTE | 2022-03-05 19:30 | NUR ---
Pt laying in bed yelling pt had large hard BM. Pts brief was changed and ja care completed. Pt is quiet momentarily but then proceeds to yell.
[2022-03-05] MEDS: nystatin 15 GM powder TP SCH (19:35)
[2022-03-05] MEDS: polyethylene glycol 3350 17gm powd pack PO SCH (20:05)
[2022-03-05] MEDS: divalproex sod 250mg ER (24-hour) tablet PO SCH (20:06)
[2022-03-05] MEDS: docusate sod 250mg capsule PO SCH (20:06)
[2022-03-05] MEDS: lamoTRIgine 100mg tablet PO SCH (20:06)
[2022-03-05] MEDS: montelukast 10mg tablet PO SCH (20:06)
[2022-03-05] MEDS: traZODone 50mg tablet PO PRN (20:07)
[2022-03-05] MEDS: ibuprofen 200mg tablet PO PRN (20:07)
[2022-03-05] MEDS: fluvoxamine 25 MG tablet PO SCH (20:32)
--- NOTE | 2022-03-05 20:45 | NUR ---
Pt took HS meds with applesauce. Pt was repositioned and made comfortable. Pts gown was changed. Pt is attempting to climb out of bed and kicking legs and screaming shortly after med pass.
--- NOTE | 2022-03-05 21:24 | NUR ---
Pt is laying quietly in bed. Sitter is assisting her with drinking a beverage.
--- NOTE | 2022-03-05 22:43 | NUR ---
pt is awake continues to yell. Pt states she wants to go home. Pt is repositioned to be made comfortable but resumes yelling minutes later.
--- NOTE | 2022-03-05 22:56 | NUR ---
pt is laying in bed quietly
--- NOTE | 2022-03-06 00:27 | NUR ---
Pt is laying in bed on her back with feet propped up on side cushion. Pt appears to be comfortably sleeping. RR 16 no s/s distress
--- NOTE | 2022-03-06 06:55 | NUR ---
Patient moving around and waking up. Patient soaked. Tech and Sitter changing patient and bedding. Continue to monitor.
[2022-03-06] MEDS: nystatin 15 GM powder TP SCH ×2 (08:00→19:23)
[2022-03-06] MEDS: nicotine 7mg patch - 24hr TD SCH (08:00)
--- NOTE | 2022-03-06 08:11 | NUR ---
Patient being fed by sitter. Patient is quiet when eating. Continue to monitor.
[2022-03-06] MEDS: benztropine 1mg tablet PO SCH ×2 (08:42→19:22)
[2022-03-06] MEDS: sennosides 8.6mg tablet PO SCH ×2 (08:42→19:23)
[2022-03-06] MEDS: ferrous sulfate 325mg tablet PO SCH ×2 (08:42→19:23)
[2022-03-06] MEDS: quetiapine 100mg tablet PO SCH (08:42)
[2022-03-06] MEDS: lactobacillus rhamnosus 10,000 MMU CELLS/CAPSULE PO SCH (08:43)
[2022-03-06] MEDS: multivitamins, therapeutics tablet PO SCH (08:43)
[2022-03-06] MEDS: ascorbic acid 500mg tablet PO SCH ×2 (08:43→19:22)
[2022-03-06] MEDS: vortioxetine HBr tablet 5 MG TABLET PO SCH ×2 (08:43→19:26)
[2022-03-06] MEDS: atorvastatin 10mg tablet PO SCH (08:44)
[2022-03-06] MEDS: JUVEN Shake w/Arg/Glut/Ca2+Bmb (Juven 19.3gm) pkt 240ml PO SCH ×3 (08:44→18:00)
--- NOTE | 2022-03-06 09:30 | NUR ---
RN and Tech changing patient's B.M. Large formed and soft. Patient tolerated with some difficulty. Continue to monitor.
[2022-03-06 10:30] LABS: CREATINE KINASE 1167 U/L (26-192)
--- NOTE | 2022-03-06 11:23 | NUR ---
Patient was fussing and RN played patient some music. Patient calmed down and listened. Patient was calm for about 30 minutes. Continue to monitor.
[2022-03-06] MEDS: LORazepam 1 MG tablet PO PRN ×2 (13:28→21:28)
[2022-03-06] MEDS: ibuprofen 200mg tablet PO PRN (13:28)
--- NOTE | 2022-03-06 13:35 | NUR ---
Patient ate about 50% of her lunch. Sitter at bedside. Continue to monitor.
--- NOTE | 2022-03-06 14:05 | NUR ---
Two representatives from [facility] came to see patient. Patient was yelling in bed with a sitter at bedside. Representatives came to nurses station to speak to RN. RN advised Reps that patient has been walking almost daily with Physical Therapy, 2 people and a walker. Rep stated they found Rosa placement as long as she does not have a draining wound. RN stated that that was not possible. Patient has a large area of her face with basal cell carcinoma and patient picks at face making it bleed. RN advised Reps that if the cancer had been removed when it was small she wouldn't have this large area of open wound. Reps stated they would continue to look.
[2022-03-06] MEDS: quetiapine fumarate ER 300mg tablet PO SCH (15:55)
--- NOTE | 2022-03-06 16:05 | NUR ---
Pt in and out of fussing/yelling. Pt yelling "I don't want to be here." "I hate my life." Sitter at bedside.
--- NOTE | 2022-03-06 16:45 | NUR ---
Note alisa in EDM - 03/06/22 at 1652 by LYNDA COPY OF WOUND CARE ORDERS IN FRONT OF CHART. GENTAMICIN IN PT SPECIFIC BIN.
--- NOTE | 2022-03-06 18:30 | NUR ---
Sitter at bedside at all times
--- NOTE | 2022-03-06 19:00 | NUR ---
pt yelling, turning in bed
[2022-03-06] MEDS: polyethylene glycol 3350 17gm powd pack PO SCH (19:19)
[2022-03-06] MEDS: fluvoxamine 25 MG tablet PO SCH (19:20)
[2022-03-06] MEDS: divalproex sod 250mg ER (24-hour) tablet PO SCH (19:21)
[2022-03-06] MEDS: traZODone 50mg tablet PO PRN (19:22)
[2022-03-06] MEDS: montelukast 10mg tablet PO SCH (19:23)
[2022-03-06] MEDS: docusate sod 250mg capsule PO SCH (21:00)
[2022-03-06] MEDS: lamoTRIgine 100mg tablet PO SCH (21:34)
--- NOTE | 2022-03-07 00:38 | NUR ---
pt sleeping, breathing even and unlabored at this time
--- NOTE | 2022-03-07 05:28 | NUR ---
pt incot. of urine, pt cleaned
--- NOTE | 2022-03-07 06:15 | NUR ---
Assumed care of patient. Pt was moved to OF #26 with sitter. Pt awake and moaning, no outbursts.
--- NOTE | 2022-03-07 06:56 | NUR ---
Tech and sitter changing pt's wet depends and bedding. Noted some erythema in groin area, conventional underwriter applied Nystatin powder.
--- NOTE | 2022-03-07 07:13 | NUR ---
Tech and sitter washing and brushing hair, cleaned pt's finger nails. Mari care completed.
[2022-03-07] MEDS: sennosides 8.6mg tablet PO SCH ×2 (08:16→20:00)
[2022-03-07] MEDS: vortioxetine HBr tablet 5 MG TABLET PO SCH ×2 (08:16→20:00)
[2022-03-07] MEDS: ascorbic acid 500mg tablet PO SCH ×2 (08:16→20:00)
[2022-03-07] MEDS: benztropine 1mg tablet PO SCH ×2 (08:16→20:00)
[2022-03-07] MEDS: lactobacillus rhamnosus 10,000 MMU CELLS/CAPSULE PO SCH (08:16)
[2022-03-07] MEDS: ferrous sulfate 325mg tablet PO SCH ×2 (08:16→20:00)
[2022-03-07] MEDS: atorvastatin 10mg tablet PO SCH (08:16)
[2022-03-07] MEDS: multivitamins, therapeutics tablet PO SCH (08:16)
[2022-03-07] MEDS: quetiapine 100mg tablet PO SCH (08:16)
[2022-03-07] MEDS: nicotine 7mg patch - 24hr TD SCH (08:17)
[2022-03-07] MEDS: nystatin 15 GM powder TP SCH ×2 (08:17→20:12)
[2022-03-07] MEDS: JUVEN Shake w/Arg/Glut/Ca2+Bmb (Juven 19.3gm) pkt 240ml PO SCH ×3 (08:18→18:39)
--- NOTE | 2022-03-07 09:01 | NUR ---
Patient is resting comfortably, respirations even and unlabored. Pt's medications were administered with her morning shake. Sitter at bedside.
--- NOTE | 2022-03-07 11:01 | NUR ---
Sitter at bedside. Pt appears to be sleeping, no restless movements. Respirations even and unlabored.
--- NOTE | 2022-03-07 13:02 | NUR ---
Pt awake eating lunch. Pt is being fed by sitter. No distress noted.
[2022-03-07] MEDS: LORazepam 1 MG tablet PO PRN (13:20)
--- NOTE | 2022-03-07 14:03 | NUR ---
Wound care is here to see pt.
--- NOTE | 2022-03-07 15:17 | NUR ---
Agree with KRAFT DIGESTER OPERATOR Daria Dumont [facility] charting and assessment for 03/07/22 - Bernie Lewis RN
--- NOTE | 2022-03-07 15:30 | NUR ---
Pt squirming in her bed, occassionally yellling out. Sitter at bedside
--- NOTE | 2022-03-07 15:55 | NUR ---
Pt incontinent of stool. Tech and sitter changing patient and completing pericare.
[2022-03-07] MEDS: quetiapine fumarate ER 300mg tablet PO SCH (16:13)
--- NOTE | 2022-03-07 17:04 | NUR ---
Pt lying in bed quietly, no distress noted. Sitter at bedside.
--- NOTE | 2022-03-07 19:20 | NUR ---
The patient vomited during the evening meal. Vital signs 101.4,108,14,125/78, 95% on room air. CROW Proctor made aware and orders received.
[2022-03-07] MEDS ORDERED: ondansetron 4mg rapidly disintigrating tab PO ONE (19:25)
[2022-03-07 19:55] LABS: BASOPHILS % (AUTO) 0.2 % (0-1); EOSINOPHILS % (AUTO) 0.6 % (0-6); HEMATOCRIT 47.5 % (35.0-45.0); HEMOGLOBIN 15.8 g/dl (12.0-16.0); LYMPHOCYTES # (AUTO) 0.4 X10'3 (1.1-4.8); MEAN CORPUSCULAR HEMOGLOBIN 30.1 PG (27.0-31.0); MEAN CORPUSCULAR HGB CONC 33.2 g/dL (33.0-36.5); MEAN CORPUSCULAR VOLUME 90.7 FL (78-98); MEAN PLATELET VOLUME 8.9 FL (7.4-10.4); MONOCYTES # (AUTO) 0.3 X10'3 (0-0.9); MONOCYTES % (AUTO) 5.1 % (2-12); NEUTROPHILS # (AUTO) 5.7 X10'3 (1.8-7.7); NEUTROPHILS % (AUTO) 88.1 % (42-75); PLATELET COUNT 133 X10'3 (140-440); RED BLOOD COUNT 5.24 X10'6 (4.20-5.60); RED CELL DISTRIBUTION WIDTH 12.3 % (11.5-14.5); WHITE BLOOD COUNT 6.4 X10'3 (4.5-11.0)
[2022-03-07 20:04] LABS: CLARITY,URINE SLIGHTLY CLOUDY (Clear); COLOR,URINE YELLOW (Yellow); GLUCOSE, URINE NEGATIVE (Neg); KETONES,URINE 15 mg/dl (Neg); LEUKOCYTE ESTERASE ,URINE NEGATIVE (Neg); NITRITES, URINE NEGATIVE (Neg); OCCULT BLOOD,URINE NEGATIVE (Neg); PH,URINE 5.5 (4.8-8.0); PROTEIN,URINE NEGATIVE (Neg)
[2022-03-07] MEDS: acetaminophen 325mg tablet PO PRN (20:09)
[2022-03-07] MEDS: lamoTRIgine 100mg tablet PO SCH (20:10)
[2022-03-07] MEDS: divalproex sod 250mg ER (24-hour) tablet PO SCH (20:10)
[2022-03-07] MEDS: fluvoxamine 25 MG tablet PO SCH (20:10)
[2022-03-07 20:12] LABS: UA COLLECTION TYPE STRAIGHT CATH
[2022-03-07] MEDS: montelukast 10mg tablet PO SCH (20:12)
[2022-03-07] MEDS: polyethylene glycol 3350 17gm powd pack PO SCH (20:12)
[2022-03-07] MEDS: docusate sod 250mg capsule PO SCH (20:12)
[2022-03-07 20:13] LABS: ALANINE AMINOTRANSFERASE 31 U/L (12-78); ALBUMIN 3.5 G/DL (3.4-5.0); ALBUMIN/GLOBULIN RATIO 0.9 (1.1-1.5); ALKALINE PHOSPHATASE 68 IU/L (46-116); ANION GAP 7 (8-16); ASPARTATE AMINO TRANSFERASE 26 U/L (10-37); BILIRUBIN,TOTAL 0.3 MG/DL (0.1-1.0); BLOOD UREA NITROGEN 27 MG/DL (7-18); BUN/CREATININE RATIO 33.3 (6.6-38.0); CALCIUM 9.4 MG/DL (8.5-10.1); CHLORIDE 105 MMOL/L (99-107); CREATININE 0.81 MG/DL (0.40-0.90); GLUCOSE 153 MG/DL (70-104); SODIUM 140 MMOL/L (135-145); TOTAL CARBON DIOXIDE 27.8 MMOL/L (24-32); TOTAL PROTEIN 7.4 G/DL (6.4-8.2); eGFR 75 ML/MIN
[2022-03-07 20:15] LABS: MUCUS STRANDS MANY /LPF (Neg); SQUAMOUS EPITHELIAL CELL,UR MANY /LPF (FEW)
[2022-03-07 20:16] LABS: BACTERIA,URINE NONE SEEN /HPF (Neg); TRANSITIONAL EPI CELLS,URINE MODERATE /HPF
--- NOTE | 2022-03-07 21:17 | NUR ---
The patient is currently resting on her bed. She was able to take some of her HS medications but some medications held 2nd to patient nausea.
--- NOTE | 2022-03-07 22:09 | NUR ---
vital signs were done at 1900 new ones due to pt having a fever.
--- NOTE | 2022-03-07 23:39 | NUR ---
Labs drawn and the patient is currently back asleep
--- NOTE | 2022-03-08 01:26 | NUR ---
The patient appears to be sleeping
--- NOTE | 2022-03-08 03:10 | NUR ---
The patient appears to be sleeping. She remains one to one with staff at all times 2nd to very high fall risk.
--- NOTE | 2022-03-08 05:13 | NUR ---
The patient appears to be sleeping
--- NOTE | 2022-03-08 06:40 | NUR ---
Repositioned patient for increased circulation as her legs were over side bed pads, LE's were cool. Pt covered with warm blanket. Respirations even and unlabored. Will continue to monitor.
--- NOTE | 2022-03-08 07:18 | NUR ---
Tech and sitter at bedside. Pt was incontinent of stool and urine. Pt cleaned up and linens changed. Noted some mild erythema in ja area. Nystanin powder applied. Barrier cream applied to buttocks and back. Stool consistency was mamta-like.
--- NOTE | 2022-03-08 07:30 | NUR ---
Spoke with Dr. Hope regarding pt's low BP 0600 BP 95/55 HR 112 T- 100.9 (A) 0710 BP L- 83/60 R- 101/59 HR 120 T- 101.0 (O) and symptoms of N/V, decreased appetite. Dr Grimm will place orders.
[2022-03-08] MEDS ORDERED: ringers solution, lactated 1000ml IV soln IV ONE ×2 (07:48→08:15)
[2022-03-08] MEDS: JUVEN Shake w/Arg/Glut/Ca2+Bmb (Juven 19.3gm) pkt 240ml PO SCH ×3 (08:00→18:00)
--- NOTE | 2022-03-08 08:15 | NUR ---
IV placed in left FA. 20 gauge. Patent. Addendum: 03/08/22 at 0822 by LYNDA Placed by Zachariah Atwood.
[2022-03-08] MEDS: nystatin 15 GM powder TP SCH ×2 (08:42→20:00)
--- NOTE | 2022-03-08 08:42 | NUR ---
First 1,000 mL Lactated ringers administered
--- NOTE | 2022-03-08 08:48 | NUR ---
Pt moved to ED bed #8.
[2022-03-08 08:55] LABS: BASOPHILS % (AUTO) 0.2 % (0-1); EOSINOPHILS % (AUTO) 0.1 % (0-6); HEMOGLOBIN 15.9 g/dl (12.0-16.0); LYMPHOCYTES # (AUTO) 0.6 X10'3 (1.1-4.8); LYMPHOCYTES % (AUTO) 10.2 % (21-51); MEAN CORPUSCULAR HEMOGLOBIN 30.5 PG (27.0-31.0); MEAN CORPUSCULAR HGB CONC 33.8 g/dL (33.0-36.5); MEAN CORPUSCULAR VOLUME 90.4 FL (78-98); MONOCYTES # (AUTO) 0.5 X10'3 (0-0.9); MONOCYTES % (AUTO) 8.8 % (2-12); NEUTROPHILS # (AUTO) 4.9 X10'3 (1.8-7.7); NEUTROPHILS % (AUTO) 80.7 % (42-75); PLATELET COUNT 137 X10'3 (140-440); RED CELL DISTRIBUTION WIDTH 12.5 % (11.5-14.5)
--- NOTE | 2022-03-08 08:58 | NUR ---
PT MOVED FROM BED 26 TO BED 8. FEVER 101.3. DR MCGOWAN AWARE.
[2022-03-08 09:09] LABS: ALANINE AMINOTRANSFERASE 26 U/L (12-78); ALBUMIN 3.1 G/DL (3.4-5.0); ALBUMIN/GLOBULIN RATIO 0.8 (1.1-1.5); ALKALINE PHOSPHATASE 61 IU/L (46-116); ANION GAP 10 (8-16); ASPARTATE AMINO TRANSFERASE 21 U/L (10-37); BILIRUBIN,TOTAL 0.4 MG/DL (0.1-1.0); BLOOD UREA NITROGEN 37 MG/DL (7-18); CALCIUM 8.5 MG/DL (8.5-10.1); CHLORIDE 103 MMOL/L (99-107); CREATININE 0.88 MG/DL (0.40-0.90); GLUCOSE 128 MG/DL (70-104); MAGNESIUM 1.9 MG/DL (1.5-2.4); POTASSIUM 3.5 MMOL/L (3.5-5.1); SODIUM 141 MMOL/L (135-145); TOTAL CARBON DIOXIDE 28.1 MMOL/L (24-32); eGFR 69 ML/MIN
[2022-03-08] MEDS: nicotine 7mg patch - 24hr TD SCH (09:19)
[2022-03-08] MEDS: ascorbic acid 500mg tablet PO SCH ×2 (09:19→21:04)
[2022-03-08] MEDS: sennosides 8.6mg tablet PO SCH ×2 (09:19→21:03)
--- NOTE | 2022-03-08 09:19 | NUR ---
REPORT TO TANYA EPSTEIN
[2022-03-08] MEDS: atorvastatin 10mg tablet PO SCH (09:20)
[2022-03-08] MEDS: multivitamins, therapeutics tablet PO SCH (09:20)
[2022-03-08] MEDS: ferrous sulfate 325mg tablet PO SCH ×2 (09:20→21:04)
[2022-03-08] MEDS: lactobacillus rhamnosus 10,000 MMU CELLS/CAPSULE PO SCH (09:20)
[2022-03-08] MEDS ORDERED: acetaminophen 325mg tablet PO ONE (09:50)
[2022-03-08 10:04] LABS: CLARITY,URINE CLEAR (Clear); COLOR,URINE YELLOW (Yellow); GLUCOSE, URINE NEGATIVE (Neg); KETONES,URINE TRACE mg/dl (Neg); LEUKOCYTE ESTERASE ,URINE NEGATIVE (Neg); NITRITES, URINE NEGATIVE (Neg); OCCULT BLOOD,URINE NEGATIVE (Neg); PH,URINE 5.5 (4.8-8.0); PROTEIN,URINE NEGATIVE (Neg)
[2022-03-08 10:07] LABS: UA COLLECTION TYPE STRAIGHT CATH
--- NOTE | 2022-03-08 10:16 | NUR ---
PT ABLE TO TAKE MORNING MEDS. PT IS AROUSABLE BUT DROWSY. RESP EVEN UNLABORED. SKIN W/D/I PINK. PT WAS REPOSTIONED. SITTER AT BEDSIDE FOR CONSTANT OBSERVATION AND SAFETY. NICOTINE PATCH RT SHOULDER.
[2022-03-08] MEDS ORDERED: HYDROcodone/acetaminophen 10/325mg tab PO ONE (10:40)
[2022-03-08] MEDS ORDERED: iohexol 300mg/ml 100ml inj. ONE (11:09)
[2022-03-08] MEDS: vortioxetine HBr tablet 5 MG TABLET PO SCH ×2 (11:46→20:00)
[2022-03-08] MEDS: quetiapine fumarate ER 300mg tablet PO SCH (16:00)
--- NOTE | 2022-03-08 18:15 | NUR ---
report to maribell grant for continuation of care.
--- NOTE | 2022-03-08 19:28 | NUR ---
PT IS ASLEEP ON THE GURNEY, BREATHS ARE EVEN AND UNLABORED. VITAL SIGNS ARE STABLE AT THIS TIME. SITTER AT BEDSIDE. DINNER TRAY IS PLACED IN THE FRIDGE FOR LATER WHEN THE PT WAKES UP.
[2022-03-08] MEDS: polyethylene glycol 3350 17gm powd pack PO SCH (21:02)
[2022-03-08] MEDS: docusate sod 250mg capsule PO SCH (21:03)
[2022-03-08] MEDS: fluvoxamine 25 MG tablet PO SCH (21:05)
[2022-03-08] MEDS: divalproex sod 250mg ER (24-hour) tablet PO SCH (21:05)
[2022-03-08] MEDS: LORazepam 1 MG tablet PO PRN (21:05)
[2022-03-08] MEDS: montelukast 10mg tablet PO SCH (21:06)
[2022-03-08] MEDS: benztropine 1mg tablet PO SCH (21:07)
[2022-03-08] MEDS: lamoTRIgine 100mg tablet PO SCH (21:08)
[2022-03-08] MEDS ORDERED: haloperidol lactate 5mg/ml inj IM ONE (21:20)
[2022-03-08] MEDS ORDERED: LORazepam 2 mg/ml vial IM ONE (21:20)
[2022-03-09] MEDS ORDERED: normal saline 1000ML IV soln IVB ONE (01:55)
[2022-03-09] MEDS: LORazepam 1 MG tablet PO PRN ×2 (05:01→10:28)
[2022-03-09] MEDS: atorvastatin 10mg tablet PO SCH (07:47)
[2022-03-09] MEDS: benztropine 1mg tablet PO SCH ×2 (07:47→21:24)
[2022-03-09] MEDS: lactobacillus rhamnosus 10,000 MMU CELLS/CAPSULE PO SCH ×2 (07:47→21:26)
[2022-03-09] MEDS: sennosides 8.6mg tablet PO SCH ×2 (07:47→21:26)
[2022-03-09] MEDS: ferrous sulfate 325mg tablet PO SCH ×2 (07:47→21:26)
[2022-03-09] MEDS: multivitamins, therapeutics tablet PO SCH (07:48)
[2022-03-09] MEDS: ascorbic acid 500mg tablet PO SCH ×2 (07:48→20:00)
[2022-03-09] MEDS: quetiapine 100mg tablet PO SCH (07:48)
[2022-03-09] MEDS: vortioxetine HBr tablet 5 MG TABLET PO SCH ×2 (07:49→21:30)
[2022-03-09] MEDS: nicotine 7mg patch - 24hr TD SCH (07:50)
[2022-03-09] MEDS: nystatin 15 GM powder TP SCH ×2 (08:16→21:24)
[2022-03-09] MEDS: JUVEN Shake w/Arg/Glut/Ca2+Bmb (Juven 19.3gm) pkt 240ml PO SCH ×3 (10:30→18:00)
[2022-03-09] MEDS ORDERED: haloperidol lactate 5mg/ml inj IM ONE (12:53)
[2022-03-09] MEDS: LORazepam 2 mg/ml vial IM ONE ×2 (14:00→14:08)
[2022-03-09] MEDS: quetiapine fumarate ER 300mg tablet PO SCH (15:44)
--- NOTE | 2022-03-09 17:41 | NUR ---
Upon assessment this AM, pt restless, trying to put legs out of bed and get up. Sitter assisting at bedside. Mari-care provided, gown changed, linen changed. Pt tolerated AM seroquel and PRN oral ativan. Upon reassessment, this afternoon, pt yelling and moaning, very restless. RN notified Dr. Awad. ordered one-time dose of IV ativan and IV haldol. RN administered IV ativan. Pt tolerated. Pt is resting. See eMAR.
[2022-03-09] MEDS: lamoTRIgine 100mg tablet PO SCH (21:24)
[2022-03-09] MEDS: polyethylene glycol 3350 17gm powd pack PO SCH (21:24)
[2022-03-09] MEDS: fluvoxamine 25 MG tablet PO SCH (21:24)
[2022-03-09] MEDS: divalproex sod 250mg ER (24-hour) tablet PO SCH (21:25)
[2022-03-09] MEDS: traZODone 50mg tablet PO PRN (21:25)
[2022-03-09] MEDS: docusate sod 250mg capsule PO SCH (21:27)
[2022-03-09] MEDS: montelukast 10mg tablet PO SCH (21:27)
[2022-03-10] MEDS ORDERED: LORazepam 2 mg/ml vial IM ONE (08:20)
[2022-03-10] MEDS ORDERED: haloperidol lactate 5mg/ml inj IM ONE (08:20)
[2022-03-10] MEDS: benztropine 1mg tablet PO SCH ×2 (09:19→20:23)
[2022-03-10] MEDS: sennosides 8.6mg tablet PO SCH ×2 (09:19→20:23)
[2022-03-10] MEDS: ferrous sulfate 325mg tablet PO SCH ×2 (09:19→20:21)
[2022-03-10] MEDS: atorvastatin 10mg tablet PO SCH (09:19)
[2022-03-10] MEDS: quetiapine 100mg tablet PO SCH (09:19)
[2022-03-10] MEDS: nicotine 7mg patch - 24hr TD SCH (09:20)
[2022-03-10] MEDS: multivitamins, therapeutics tablet PO SCH (09:20)
[2022-03-10] MEDS: ascorbic acid 500mg tablet PO SCH ×2 (09:20→20:23)
[2022-03-10] MEDS: nystatin 15 GM powder TP SCH ×2 (09:20→20:38)
[2022-03-10] MEDS: vortioxetine HBr tablet 5 MG TABLET PO SCH ×2 (09:20→20:00)
[2022-03-10] MEDS: LORazepam 1 MG tablet PO PRN (09:21)
[2022-03-10] MEDS: JUVEN Shake w/Arg/Glut/Ca2+Bmb (Juven 19.3gm) pkt 240ml PO SCH ×4 (12:36→22:00)
[2022-03-10] MEDS: quetiapine fumarate ER 300mg tablet PO SCH (16:48)
[2022-03-10] MEDS: montelukast 10mg tablet PO SCH (20:22)
[2022-03-10] MEDS: divalproex sod 250mg ER (24-hour) tablet PO SCH (20:24)
[2022-03-10] MEDS: fluvoxamine 25 MG tablet PO SCH (20:27)
[2022-03-10] MEDS: docusate sod 250mg capsule PO SCH (20:54)
[2022-03-10] MEDS: lamoTRIgine 100mg tablet PO SCH (20:55)
[2022-03-10] MEDS: polyethylene glycol 3350 17gm powd pack PO SCH (21:02)
[2022-03-11] MEDS ORDERED: ibuprofen tablet 400 MG TABLET PO ONE (07:05)
[2022-03-11] MEDS: atorvastatin 10mg tablet PO SCH (07:15)
[2022-03-11] MEDS: lactobacillus rhamnosus 10,000 MMU CELLS/CAPSULE PO SCH (07:15)
[2022-03-11] MEDS: multivitamins, therapeutics tablet PO SCH (07:15)
[2022-03-11] MEDS: ibuprofen 200mg tablet PO PRN ×2 (07:15→19:02)
[2022-03-11] MEDS: sennosides 8.6mg tablet PO SCH ×2 (07:15→20:01)
[2022-03-11] MEDS: ascorbic acid 500mg tablet PO SCH ×2 (07:15→20:00)
[2022-03-11] MEDS: ferrous sulfate 325mg tablet PO SCH ×2 (07:15→20:02)
--- NOTE | 2022-03-11 07:15 | NUR ---
PT RESTING WITH EYES CLOSED, EFFORTLESS RESPIRATIONS OBSERVED.
[2022-03-11] MEDS: vortioxetine HBr tablet 5 MG TABLET PO SCH ×2 (07:16→20:02)
[2022-03-11] MEDS: benztropine 1mg tablet PO SCH ×2 (07:16→20:02)
[2022-03-11] MEDS: LORazepam 1 MG tablet PO PRN ×3 (07:16→20:01)
[2022-03-11] MEDS: nicotine 7mg patch - 24hr TD SCH (07:17)
[2022-03-11] MEDS: nystatin 15 GM powder TP SCH ×2 (07:17→20:02)
[2022-03-11] MEDS: quetiapine 100mg tablet PO SCH (07:59)
--- NOTE | 2022-03-11 08:00 | NUR ---
Pt incont of urine. Pt linen changed and skin cleansed and pt repositioned. Pt continues to moan out loud. Pt asked what "what is wrong, what do you need?" and pt stops momemtarily and then moans out again. Pt asked "whats wrong, why are you moaning out loud" and pt mumbles "I don't know". Assisted pt with oral intake and pt drank approx 100ml of juice.
--- NOTE | 2022-03-11 08:45 | NUR ---
ENCOURAGED PT TO EAT BREAKFAST TRAY. WAS ABLE TO FEED PT APPROX 10% OF BREAKFAST TRAY. WAITED A FEW MININUTES AND ATTEMPTED AGAIN TO FEED PT AND PT CLOSING MOUTH WHEN SPOON BROUGHT TO PT LIPS.
--- NOTE | 2022-03-11 10:45 | NUR ---
PT R HEEL REDDENED AND SOFT. PTS LEGS WERE PLACED ON PILLOWS TO FLOAT HEELS BUT PT KEEPS MOVING AND KNOCKING PILLOWS TO FLOOR. PT PLACED IN SOFT WEDGE BOOT WITH SOFT WOOL LINING.
--- NOTE | 2022-03-11 11:35 | NUR ---
PT ABLE TO REPORT HAVING PAIN. PT STATES "MY BODY HURTS", PRN GOING TO BE ADMINISTERED
[2022-03-11] MEDS: acetaminophen 325mg tablet PO PRN ×2 (11:36→19:02)
[2022-03-11] MEDS: JUVEN Shake w/Arg/Glut/Ca2+Bmb (Juven 19.3gm) pkt 240ml PO SCH ×2 (12:56→18:49)
--- NOTE | 2022-03-11 13:30 | NUR ---
Pt was moaning and yelling inconsolably. RN played serene music, no effect noted. RN played cartoon on phone, pt was able to mutter couple words, moaning and yelling subsided.
--- NOTE | 2022-03-11 14:00 | NUR ---
Nurse speaking with patient in room
--- NOTE | 2022-03-11 14:32 | NUR ---
Aid was combing pt's hair, moaning and yelling subsided.
[2022-03-11] MEDS: quetiapine fumarate ER 300mg tablet PO SCH (16:31)
--- NOTE | 2022-03-11 16:36 | NUR ---
Pt has been screaming and moaning inconsolably.
--- NOTE | 2022-03-11 18:07 | NUR ---
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 Will talk to ED provider for an order for left hip x-ray
--- NOTE | 2022-03-11 18:14 | NUR ---
RN showed picture taken of pt's left [facility] region to ED provider Dr. Morales, he said it is normal, did not receive any order from the provider.
--- NOTE | 2022-03-11 19:00 | NUR ---
The patient is restless and yelling continuously on her bed. She was assisted at meal time but ate very little.
[2022-03-11] MEDS: traZODone 50mg tablet PO PRN (19:06)
[2022-03-11] MEDS: polyethylene glycol 3350 17gm powd pack PO SCH (20:00)
[2022-03-11] MEDS: lamoTRIgine 100mg tablet PO SCH (20:01)
[2022-03-11] MEDS: divalproex sod 250mg ER (24-hour) tablet PO SCH (20:01)
[2022-03-11] MEDS: docusate sod 250mg capsule PO SCH (20:01)
[2022-03-11] MEDS: fluvoxamine 25 MG tablet PO SCH (20:01)
[2022-03-11] MEDS: montelukast 10mg tablet PO SCH (20:01)
--- NOTE | 2022-03-11 20:26 | NUR ---
The patient continues to yell but is not forming any words. Wound care to right cheek. She is very restless in the bed. She has no concept of her personal safety and currently is no longer staffed with one to one staffing per charger tester. She was given prn ativan but is continuing to yell. She has a PIV to her right forearm #20 guage which flushed without problems.
--- NOTE | 2022-03-11 22:35 | NUR ---
The patient continues to yell out. Attempts to console patient are ineffective.
--- NOTE | 2022-03-12 00:12 | NUR ---
The patient appears to be sleeping
--- NOTE | 2022-03-12 02:06 | NUR ---
The patient appears to be sleeping
--- NOTE | 2022-03-12 04:01 | NUR ---
The patient appears to be sleeping
--- NOTE | 2022-03-12 05:30 | NUR ---
The patient is currently awake and moaning quietly
[2022-03-12] MEDS: benztropine 1mg tablet PO SCH ×3 (07:48→20:27)
[2022-03-12] MEDS: lactobacillus rhamnosus 10,000 MMU CELLS/CAPSULE PO SCH (07:48)
[2022-03-12] MEDS: ferrous sulfate 325mg tablet PO SCH ×3 (07:48→20:27)
[2022-03-12] MEDS: nicotine 7mg patch - 24hr TD SCH (07:48)
[2022-03-12] MEDS: JUVEN Shake w/Arg/Glut/Ca2+Bmb (Juven 19.3gm) pkt 240ml PO SCH ×3 (07:48→18:47)
[2022-03-12] MEDS: quetiapine 100mg tablet PO SCH (07:49)
[2022-03-12] MEDS: atorvastatin 10mg tablet PO SCH (07:49)
[2022-03-12] MEDS: ascorbic acid 500mg tablet PO SCH ×2 (07:49→20:27)
[2022-03-12] MEDS: nystatin 15 GM powder TP SCH ×2 (07:49→20:27)
[2022-03-12] MEDS: multivitamins, therapeutics tablet PO SCH (07:49)
[2022-03-12] MEDS: sennosides 8.6mg tablet PO SCH ×3 (07:49→20:27)
[2022-03-12] MEDS: vortioxetine HBr tablet 5 MG TABLET PO SCH ×2 (08:00→20:27)
[2022-03-12] MEDS: LORazepam 1 MG tablet PO PRN ×2 (11:01→16:00)
--- NOTE | 2022-03-12 14:06 | NUR ---
PT IN ROOM WITH PATIENT
--- NOTE | 2022-03-12 14:39 | NUR ---
PATIENT CLEANED AND FRESH LINENS PROVIDED. REPOSITIONED IN BED WITH PILLOW ON RIGHT SIDE TO AVOID ONGOING PRESSURE TO KNEES AND FEET. SMALL BOWEL MOVEMEMT AND SMALL AMOUNT OF URINE PRODUCED SINCE THIS AM.
[2022-03-12] MEDS: quetiapine fumarate ER 300mg tablet PO SCH (16:00)
--- NOTE | 2022-03-12 16:46 | NUR ---
PATIENT AWAKE AND MOANING LOUDLY. UNABLE TO CALM PATIENT. PRN MEDS GIVEN WITHOUT RELIEF.
--- NOTE | 2022-03-12 17:28 | NUR ---
WOUNDS TO LEFT SIDE OF FACE CLEANED AND DRESSED WITH XEROFORM GAUZE
[2022-03-12] MEDS ORDERED: normal saline 1000ml 1,000 ML IV ONE (18:30)
--- NOTE | 2022-03-12 18:31 | NUR ---
Dr. Hope made aware of patient has had poor po intake and NS ordered.
[2022-03-12] MEDS: fluvoxamine 25 MG tablet PO SCH ×2 (20:26→20:55)
[2022-03-12] MEDS: divalproex sod 250mg ER (24-hour) tablet PO SCH (20:26)
[2022-03-12] MEDS: montelukast 10mg tablet PO SCH ×2 (20:26→20:55)
[2022-03-12] MEDS: docusate sod 250mg capsule PO SCH ×2 (20:26→20:55)
[2022-03-12] MEDS: lamoTRIgine 100mg tablet PO SCH ×2 (20:26→20:55)
[2022-03-12] MEDS: polyethylene glycol 3350 17gm powd pack PO SCH ×2 (20:27→20:55)
--- NOTE | 2022-03-12 20:43 | NUR ---
The patient presents as very sedated. She was able to take her evening depakote dose with difficulty 2nd to sedation but all of her other medications were held. Dr. Hope made aware.
--- NOTE | 2022-03-12 22:48 | NUR ---
The patient appears to be sleeping
--- NOTE | 2022-03-13 00:12 | NUR ---
The patient appears to be sleeping
--- NOTE | 2022-03-13 02:01 | NUR ---
The patient appears to be sleeping
--- NOTE | 2022-03-13 04:33 | NUR ---
The patient appears to be sleeping
--- NOTE | 2022-03-13 05:13 | NUR ---
The patient appears to be sleeping
--- NOTE | 2022-03-13 07:31 | NUR ---
LINENS AND BRIEF CHANGED. PATIENT MUCH MORE AGITATED AND RESTLESS THIS MORNING THAN PREVIOUS DAYS.
[2022-03-13] MEDS: JUVEN Shake w/Arg/Glut/Ca2+Bmb (Juven 19.3gm) pkt 240ml PO SCH ×3 (08:00→17:56)
[2022-03-13 08:06] LABS: ALANINE AMINOTRANSFERASE 38 U/L (12-78); ALBUMIN 2.8 G/DL (3.4-5.0); ALBUMIN/GLOBULIN RATIO 0.8 (1.1-1.5); ALKALINE PHOSPHATASE 62 IU/L (46-116); ANION GAP 9 (8-16); ASPARTATE AMINO TRANSFERASE 36 U/L (10-37); BILIRUBIN,TOTAL 0.3 MG/DL (0.1-1.0); BLOOD UREA NITROGEN 13 MG/DL (7-18); BUN/CREATININE RATIO 26.5 (6.6-38.0); CALCIUM 8.7 MG/DL (8.5-10.1); CHLORIDE 103 MMOL/L (99-107); CREATINE KINASE 296 U/L (26-192); CREATININE 0.49 MG/DL (0.40-0.90); GLUCOSE 87 MG/DL (70-104); POTASSIUM 3.6 MMOL/L (3.5-5.1); SODIUM 139 MMOL/L (135-145); TOTAL CARBON DIOXIDE 27.1 MMOL/L (24-32); TOTAL PROTEIN 6.3 G/DL (6.4-8.2); eGFR > 90 ML/MIN
[2022-03-13] MEDS: multivitamins, therapeutics tablet PO SCH (08:12)
[2022-03-13] MEDS: ferrous sulfate 325mg tablet PO SCH ×2 (08:12→20:14)
[2022-03-13] MEDS: lactobacillus rhamnosus 10,000 MMU CELLS/CAPSULE PO SCH (08:12)
[2022-03-13] MEDS: vortioxetine HBr tablet 5 MG TABLET PO SCH ×2 (08:12→20:44)
[2022-03-13] MEDS: nystatin 15 GM powder TP SCH ×2 (08:12→20:16)
[2022-03-13] MEDS: quetiapine 100mg tablet PO SCH (08:12)
[2022-03-13] MEDS: atorvastatin 10mg tablet PO SCH (08:12)
[2022-03-13] MEDS: nicotine 7mg patch - 24hr TD SCH (08:12)
[2022-03-13] MEDS: sennosides 8.6mg tablet PO SCH ×2 (08:12→20:15)
[2022-03-13] MEDS: benztropine 1mg tablet PO SCH ×2 (08:12→20:15)
[2022-03-13] MEDS: ascorbic acid 500mg tablet PO SCH ×2 (08:12→20:20)
--- NOTE | 2022-03-13 09:42 | NUR ---
PT IN ROOM WITH PATIENT
[2022-03-13 10:27] LABS: VALPROATE 59 UG/ML (50-100)
[2022-03-13 11:46] LABS: EOSINOPHILS # (AUTO) 0.1 X10'3 (0-0.9); HEMATOCRIT 40.2 % (35.0-45.0); HEMOGLOBIN 13.6 g/dl (12.0-16.0); LYMPHOCYTES # (AUTO) 1.4 X10'3 (1.1-4.8); LYMPHOCYTES % (AUTO) 31.5 % (21-51); MEAN CORPUSCULAR HEMOGLOBIN 30.3 PG (27.0-31.0); MEAN CORPUSCULAR HGB CONC 33.8 g/dL (33.0-36.5); MEAN CORPUSCULAR VOLUME 89.8 FL (78-98); MEAN PLATELET VOLUME 8.9 FL (7.4-10.4); MONOCYTES # (AUTO) 0.6 X10'3 (0-0.9); MONOCYTES % (AUTO) 12.9 % (2-12); NEUTROPHILS # (AUTO) 2.4 X10'3 (1.8-7.7); NEUTROPHILS % (AUTO) 51.6 % (42-75); PLATELET COUNT 170 X10'3 (140-440); RED BLOOD COUNT 4.48 X10'6 (4.20-5.60); RED CELL DISTRIBUTION WIDTH 12.6 % (11.5-14.5); WHITE BLOOD COUNT 4.6 X10'3 (4.5-11.0)
[2022-03-13 14:38] LABS: CLARITY,URINE SLIGHTLY CLOUDY (Clear); COLOR,URINE YELLOW (Yellow); GLUCOSE, URINE NEGATIVE (Neg); KETONES,URINE 40 mg/dl (Neg); LEUKOCYTE ESTERASE ,URINE NEGATIVE (Neg); NITRITES, URINE NEGATIVE (Neg); OCCULT BLOOD,URINE NEGATIVE (Neg); PROTEIN,URINE NEGATIVE (Neg); UROBILINOGEN,URINE >=8.0 E.U/dL (0.2-1.0)
[2022-03-13 14:48] LABS: UA COLLECTION TYPE STRAIGHT CATH
[2022-03-13 14:49] LABS: AMORPHOUS PHOSPHATES 2+
[2022-03-13 14:50] LABS: BACTERIA,URINE NONE SEEN /HPF (Neg); MUCUS STRANDS NONE SEEN /LPF (Neg); RBC,URINE NONE SEEN /HPF (0-2); SQUAMOUS EPITHELIAL CELL,UR FEW /LPF (FEW); WBC,URINE 0-4 /HPF (0-4)
--- NOTE | 2022-03-13 15:54 | NUR ---
Reviewed FORECLOSURE FIELD INSPECTOR documentation by krista Dumont 03/07/2022. Selina Cerda RN
--- NOTE | 2022-03-13 15:54 | NUR ---
Reviewed PLUMBING DRAFTER documentation by Daria Dumont 03/09/2022. Selina Cerda RN
[2022-03-13] MEDS: quetiapine fumarate ER 300mg tablet PO SCH (16:00)
[2022-03-13] MEDS: docusate sod 250mg capsule PO SCH (20:16)
[2022-03-13] MEDS: divalproex sod 250mg ER (24-hour) tablet PO SCH (21:04)
[2022-03-13] MEDS: fluvoxamine 25 MG tablet PO SCH (21:04)
[2022-03-13] MEDS: polyethylene glycol 3350 17gm powd pack PO SCH (21:05)
[2022-03-13] MEDS: montelukast 10mg tablet PO SCH (21:05)
[2022-03-13] MEDS: lamoTRIgine 100mg tablet PO SCH (21:05)
[2022-03-13] MEDS: LORazepam 1 MG tablet PO PRN (21:23)
--- NOTE | 2022-03-13 21:23 | NUR ---
PT VERY RESTLESS AND TRING TO CRAWL OVER BED RAIL. PRN MED GIVEN
--- NOTE | 2022-03-14 06:34 | NUR ---
Patient is awake and re-adjusting. No distress observed at this time. Sitter at bedside. Continue to monitor.
--- NOTE | 2022-03-14 07:32 | NUR ---
Patient yelling out. Patient's sitter at side attempting to calm patient. Continue to monitor.
[2022-03-14] MEDS: benztropine 1mg tablet PO SCH ×2 (08:00→20:05)
[2022-03-14] MEDS: lactobacillus rhamnosus 10,000 MMU CELLS/CAPSULE PO SCH (08:00)
[2022-03-14] MEDS: JUVEN Shake w/Arg/Glut/Ca2+Bmb (Juven 19.3gm) pkt 240ml PO SCH ×3 (08:00→18:03)
[2022-03-14] MEDS: nystatin 15 GM powder TP SCH ×2 (08:00→20:05)
[2022-03-14] MEDS: quetiapine 100mg tablet PO SCH (08:00)
[2022-03-14] MEDS: nicotine 7mg patch - 24hr TD SCH (08:00)
[2022-03-14] MEDS: atorvastatin 10mg tablet PO SCH (08:00)
[2022-03-14] MEDS: sennosides 8.6mg tablet PO SCH ×2 (08:00→20:05)
[2022-03-14] MEDS: ferrous sulfate 325mg tablet PO SCH ×2 (08:00→20:04)
--- NOTE | 2022-03-14 08:10 | NUR ---
Tech is feeding patient. Continue to monitor.
[2022-03-14] MEDS: vortioxetine HBr tablet 5 MG TABLET PO SCH ×2 (08:55→20:05)
[2022-03-14] MEDS: multivitamins, therapeutics tablet PO SCH (08:55)
[2022-03-14] MEDS: ascorbic acid 500mg tablet PO SCH ×2 (08:56→20:05)
[2022-03-14] MEDS: LORazepam 1 MG tablet PO PRN ×2 (08:56→22:39)
--- NOTE | 2022-03-14 10:10 | NUR ---
PT, Carl, walking with patient with a walker and then without a walker. Patient did well. Continue to monitor.
--- NOTE | 2022-03-14 11:19 | NUR ---
Patient's Father Trino Fitzgerald, .
--- NOTE | 2022-03-14 11:22 | NUR ---
Patient is awake and quiet. Patient is attempting to move legs over the railing. Sitter at side. Continue to monitor.
--- NOTE | 2022-03-14 13:10 | NUR ---
Patient quiet today and attempting to get out of bed. Sitter at bedside. Continue to monitor.
--- NOTE | 2022-03-14 15:03 | NUR ---
Patient is restless and moving around the bed. Sitter at bedside. Continue to monitor.
--- NOTE | 2022-03-14 16:55 | NUR ---
RN gave patient her Seroquel in yogurt. Patient was still while RN gave patient the rest of the yogurt. Patient enjoys yogurt and will take her medication in yogurt or applesauce. Sitter at bedside. Continue to monitor.
[2022-03-14] MEDS: quetiapine fumarate ER 300mg tablet PO SCH (16:59)
--- NOTE | 2022-03-14 19:10 | NUR ---
The patient has been resting her bed but restless. She is quiet. She has one to one staff 2nd to elevated fall risk. She attempts to answer guestions but her speech is garbled. She ate very poorly.
[2022-03-14] MEDS: lamoTRIgine 100mg tablet PO SCH (20:04)
[2022-03-14] MEDS: polyethylene glycol 3350 17gm powd pack PO SCH (20:04)
[2022-03-14] MEDS: docusate sod 250mg capsule PO SCH (20:04)
[2022-03-14] MEDS: fluvoxamine 25 MG tablet PO SCH (20:04)
[2022-03-14] MEDS: divalproex sod 250mg ER (24-hour) tablet PO SCH (20:05)
[2022-03-14] MEDS: montelukast 10mg tablet PO SCH (20:05)
--- NOTE | 2022-03-14 20:41 | NUR ---
The patient took all of her evening medications with yogurt. She appears to be sleeping. Dressing to left cheek. She is one to one with staff.
--- NOTE | 2022-03-14 22:04 | NUR ---
The patient appears to be sleeping
[2022-03-14] MEDS: traZODone 50mg tablet PO PRN (22:39)
--- NOTE | 2022-03-15 00:26 | NUR ---
The patient appears to be sleeping
--- NOTE | 2022-03-15 01:55 | NUR ---
The patient appears to be sleeping
--- NOTE | 2022-03-15 04:06 | NUR ---
The patient appears to be sleeping
--- NOTE | 2022-03-15 05:21 | NUR ---
The patient appears to be sleeping
[2022-03-15] MEDS: JUVEN Shake w/Arg/Glut/Ca2+Bmb (Juven 19.3gm) pkt 240ml PO SCH ×3 (08:16→18:00)
[2022-03-15] MEDS: sennosides 8.6mg tablet PO SCH ×2 (08:24→19:16)
[2022-03-15] MEDS: vortioxetine HBr tablet 5 MG TABLET PO SCH ×2 (08:24→19:17)
[2022-03-15] MEDS: quetiapine 100mg tablet PO SCH (08:24)
[2022-03-15] MEDS: lactobacillus rhamnosus 10,000 MMU CELLS/CAPSULE PO SCH (08:25)
[2022-03-15] MEDS: ascorbic acid 500mg tablet PO SCH ×2 (08:25→19:17)
[2022-03-15] MEDS: multivitamins, therapeutics tablet PO SCH (08:25)
[2022-03-15] MEDS: ferrous sulfate 325mg tablet PO SCH ×2 (08:25→19:15)
[2022-03-15] MEDS: benztropine 1mg tablet PO SCH ×2 (08:25→19:16)
[2022-03-15] MEDS: atorvastatin 10mg tablet PO SCH (08:25)
[2022-03-15] MEDS: nicotine 7mg patch - 24hr TD SCH (08:26)
[2022-03-15] MEDS: nystatin 15 GM powder TP SCH ×2 (08:34→19:17)
[2022-03-15] MEDS: LORazepam 1 MG tablet PO PRN ×2 (11:23→20:01)
--- NOTE | 2022-03-15 14:57 | NUR ---
Pt continues to wiggle all over the bed. moaning. Sitter at bedside
[2022-03-15] MEDS: quetiapine fumarate ER 300mg tablet PO SCH (15:57)
--- NOTE | 2022-03-15 17:06 | NUR ---
Patient is laying down in bed, making statements such as: Help me. Sitter at bedside.
[2022-03-15] MEDS: fluvoxamine 25 MG tablet PO SCH (19:15)
[2022-03-15] MEDS: montelukast 10mg tablet PO SCH (19:16)
[2022-03-15] MEDS: polyethylene glycol 3350 17gm powd pack PO SCH (19:16)
[2022-03-15] MEDS: lamoTRIgine 100mg tablet PO SCH (19:16)
[2022-03-15] MEDS: divalproex sod 250mg ER (24-hour) tablet PO SCH (19:17)
[2022-03-15] MEDS: traZODone 50mg tablet PO PRN ×2 (19:17→20:41)
[2022-03-15] MEDS: docusate sod 250mg capsule PO SCH (19:17)
--- NOTE | 2022-03-15 19:42 | NUR ---
Assumed care of patient. Patient moaning in bed. Dressing fell off of wound. Patient changed, Nystatin applied. Dressing changed. Evening meds given w/o complications. LOS. Patient sitting quietly in bed at this time.
--- NOTE | 2022-03-15 22:37 | NUR ---
Patient finally asleep after yelling obscenities and trying to clinb over railing. Patient given PRN Ativan 2mg with good effect. Patint now sleeping.
--- NOTE | 2022-03-16 00:50 | NUR ---
Patient appears to be sleeping at this time.
--- NOTE | 2022-03-16 01:56 | NUR ---
patient appears to be sleeping.
--- NOTE | 2022-03-16 03:28 | NUR ---
Patient appears to be sleeping at this time.
--- NOTE | 2022-03-16 04:59 | NUR ---
Patient moving quietly in bed. sitter next to patient.
--- NOTE | 2022-03-16 07:00 | NUR ---
Assumed care of patient that is yelling, "open the door, or why are you doing this to me." There is no door to open.
[2022-03-16] MEDS: JUVEN Shake w/Arg/Glut/Ca2+Bmb (Juven 19.3gm) pkt 240ml PO SCH ×3 (08:00→18:00)
--- NOTE | 2022-03-16 08:15 | NUR ---
Patient eating breakfast with tech at bedside.
[2022-03-16] MEDS: vortioxetine HBr tablet 5 MG TABLET PO SCH ×2 (08:28→19:09)
[2022-03-16] MEDS: multivitamins, therapeutics tablet PO SCH (08:29)
[2022-03-16] MEDS: sennosides 8.6mg tablet PO SCH ×2 (08:30→19:10)
[2022-03-16] MEDS: lactobacillus rhamnosus 10,000 MMU CELLS/CAPSULE PO SCH (08:30)
[2022-03-16] MEDS: atorvastatin 10mg tablet PO SCH (08:30)
[2022-03-16] MEDS: ferrous sulfate 325mg tablet PO SCH ×2 (08:30→19:10)
[2022-03-16] MEDS: benztropine 1mg tablet PO SCH ×2 (08:30→19:10)
[2022-03-16] MEDS: quetiapine 100mg tablet PO SCH (08:31)
[2022-03-16] MEDS: nicotine 7mg patch - 24hr TD SCH (08:41)
[2022-03-16] MEDS: ascorbic acid 500mg tablet PO SCH ×2 (08:41→19:09)
[2022-03-16] MEDS: nystatin 15 GM powder TP SCH ×2 (08:46→19:11)
--- NOTE | 2022-03-16 10:32 | NUR ---
Patient had an incontinent episode. Tech with patient changing to clean brief.
--- NOTE | 2022-03-16 12:11 | NUR ---
Patient being fed her lunch.
[2022-03-16] MEDS: LORazepam 1 MG tablet PO PRN ×2 (12:27→18:34)
--- NOTE | 2022-03-16 12:31 | NUR ---
Patient yelling and agitated. Provided Ativan 2mg PO.
--- NOTE | 2022-03-16 14:53 | NUR ---
pt pulled bandaid off face and picked at wound site. Tech cleaned blood off of pt neck and hands and replaced the bandaids on pt face.
--- NOTE | 2022-03-16 15:30 | NUR ---
Patient yelling in bed to "get me up, I want a cigarette, or open the door."
--- NOTE | 2022-03-16 16:14 | NUR ---
Patient out of bed and put in recliner 2 person assist. She is quieter.
[2022-03-16] MEDS: quetiapine fumarate ER 300mg tablet PO SCH (17:05)
[2022-03-16] MEDS: docusate sod 250mg capsule PO SCH (19:09)
[2022-03-16] MEDS: divalproex sod 250mg ER (24-hour) tablet PO SCH (19:09)
[2022-03-16] MEDS: polyethylene glycol 3350 17gm powd pack PO SCH (19:09)
[2022-03-16] MEDS: traZODone 50mg tablet PO PRN ×2 (19:10→19:59)
[2022-03-16] MEDS: lamoTRIgine 100mg tablet PO SCH (19:10)
[2022-03-16] MEDS: montelukast 10mg tablet PO SCH (19:10)
[2022-03-16] MEDS: fluvoxamine 25 MG tablet PO SCH (19:58)
--- NOTE | 2022-03-16 20:34 | NUR ---
Received patient from Balaji. Patient initially uncooperative and yelling, trying to climb over bed railing. Patient eventually fed dinner and evening meds taken. patient now watching TV and laying down quietly.
--- NOTE | 2022-03-17 06:57 | NUR ---
report from maribell grant for continuation of care. pt sleeping in position of comfort. resp even unlabord. skin w/d/i pink. pt responds to stimuli
[2022-03-17] MEDS: JUVEN Shake w/Arg/Glut/Ca2+Bmb (Juven 19.3gm) pkt 240ml PO SCH ×3 (08:00→18:14)
[2022-03-17] MEDS: multivitamins, therapeutics tablet PO SCH (09:40)
[2022-03-17] MEDS: nicotine 7mg patch - 24hr TD SCH (09:40)
[2022-03-17] MEDS: lactobacillus rhamnosus 10,000 MMU CELLS/CAPSULE PO SCH (09:40)
[2022-03-17] MEDS: atorvastatin 10mg tablet PO SCH (09:40)
[2022-03-17] MEDS: ferrous sulfate 325mg tablet PO SCH ×2 (09:55→20:39)
[2022-03-17] MEDS: ascorbic acid 500mg tablet PO SCH ×2 (09:56→20:39)
[2022-03-17] MEDS: sennosides 8.6mg tablet PO SCH ×2 (09:56→20:39)
[2022-03-17] MEDS: vortioxetine HBr tablet 5 MG TABLET PO SCH ×2 (10:16→20:39)
[2022-03-17] MEDS: quetiapine fumarate ER 300mg tablet PO SCH ×2 (10:17→16:33)
[2022-03-17] MEDS: benztropine 1mg tablet PO SCH ×2 (10:17→20:59)
[2022-03-17] MEDS: quetiapine 100mg tablet PO SCH (10:31)
[2022-03-17] MEDS: nystatin 15 GM powder TP SCH ×2 (10:42→20:40)
--- NOTE | 2022-03-17 12:44 | NUR ---
Patient received in bed 20 from main ER. Patient sleeping.
--- NOTE | 2022-03-17 14:31 | NUR ---
Patient laying in bed talking to herself, no distress noted.
--- NOTE | 2022-03-17 16:39 | NUR ---
Patient took Seroquel 600 mg in applesauce.
--- NOTE | 2022-03-17 19:00 | NUR ---
Patient resting in bed, dinner at bedside. Patient states that she'd like "coke". Protein shake being administered. Drank 100%. Noted hair to be matted and decided to give her a bed bath in a bit. No distress noted. Resting on back.
--- NOTE | 2022-03-17 20:30 | NUR ---
No distress noted, resting on back. Preparing HS med pass. Gave patient some coca cola to drink per her request. Made her aware that we were going to bathe her soon and brush her hair. Nurse aid gathered supplies.
[2022-03-17] MEDS: divalproex sod 250mg ER (24-hour) tablet PO SCH (20:38)
[2022-03-17] MEDS: polyethylene glycol 3350 17gm powd pack PO SCH (20:38)
[2022-03-17] MEDS: montelukast 10mg tablet PO SCH (20:39)
[2022-03-17] MEDS: lamoTRIgine 100mg tablet PO SCH (20:39)
[2022-03-17] MEDS: LORazepam 1 MG tablet PO PRN (20:39)
[2022-03-17] MEDS: docusate sod 250mg capsule PO SCH (20:39)
[2022-03-17] MEDS: traZODone 50mg tablet PO PRN (20:39)
[2022-03-17] MEDS: fluvoxamine 25 MG tablet PO SCH (21:05)
--- NOTE | 2022-03-17 22:00 | NUR ---
Bed bath completed, patient appeared to be more relaxed after medications were given and she got new bed sheets after her bath. Propped her head up with pillow and N.A. brushed her hair. Noted patient with eyes closed. No distress noted and resting comfortably.
--- NOTE | 2022-03-18 01:38 | NUR ---
Patient repositioned in bed to left side. Resting comfortably with eyes closed. No distress noted. Will cont. to monitor.
--- NOTE | 2022-03-18 03:07 | NUR ---
Patient sleeping quietly, no distress.
--- NOTE | 2022-03-18 04:25 | NUR ---
Patient continues to sleep quietly. Pitent is in view from the nurses station/
--- NOTE | 2022-03-18 05:23 | NUR ---
Patient repositioned to right side quietly and carefully, tolerated well and remained asleep. Appears to be comfortable. Will cont. to monitor.
[2022-03-18] MEDS: nicotine 7mg patch - 24hr TD SCH (07:31)
[2022-03-18] MEDS: lactobacillus rhamnosus 10,000 MMU CELLS/CAPSULE PO SCH (07:32)
[2022-03-18] MEDS: ascorbic acid 500mg tablet PO SCH ×2 (07:32→20:00)
[2022-03-18] MEDS: benztropine 1mg tablet PO SCH ×2 (07:32→19:03)
[2022-03-18] MEDS: atorvastatin 10mg tablet PO SCH (07:32)
[2022-03-18] MEDS: multivitamins, therapeutics tablet PO SCH (07:32)
[2022-03-18] MEDS: quetiapine 100mg tablet PO SCH (07:32)
[2022-03-18] MEDS: sennosides 8.6mg tablet PO SCH ×2 (07:32→19:02)
[2022-03-18] MEDS: ferrous sulfate 325mg tablet PO SCH ×2 (07:32→20:00)
[2022-03-18] MEDS: JUVEN Shake w/Arg/Glut/Ca2+Bmb (Juven 19.3gm) pkt 240ml PO SCH ×3 (07:33→18:00)
[2022-03-18] MEDS: nystatin 15 GM powder TP SCH ×2 (07:33→20:00)
[2022-03-18] MEDS: vortioxetine HBr tablet 5 MG TABLET PO SCH ×2 (08:00→19:00)
--- NOTE | 2022-03-18 14:09 | NUR ---
patient able to ambulate with PT. no complaints at this time.
[2022-03-18] MEDS: quetiapine fumarate ER 300mg tablet PO SCH (16:00)
--- NOTE | 2022-03-18 17:21 | NUR ---
pt was cleaned dried and repositioned with help from pippa.
--- NOTE | 2022-03-18 18:05 | NUR ---
pt was found out of bed and standing next to it. pt redirected into bed without incident.
--- NOTE | 2022-03-18 18:29 | NUR ---
REPORT TO TANYA KELLER FOR CONTINUATION OF CARE
--- NOTE | 2022-03-18 18:30 | NUR ---
Assumed patient care. No verbal report. This procedure writer read patient care notes. Patient is restless.
[2022-03-18] MEDS: traZODone 50mg tablet PO PRN (19:00)
[2022-03-18] MEDS: LORazepam 1 MG tablet PO PRN (19:01)
--- NOTE | 2022-03-18 19:28 | NUR ---
This fha underwriter assited this patient with her meal. Patient ate 1/3 rd. She is restless. Patient mumbles. Her speech is poor.
--- NOTE | 2022-03-18 20:10 | NUR ---
Moved to room 20. Patient is awake, restless. Patilent had consume medication in applesauce.
[2022-03-18] MEDS: polyethylene glycol 3350 17gm powd pack PO SCH (21:00)
[2022-03-18] MEDS: docusate sod 250mg capsule PO SCH (21:07)
[2022-03-18] MEDS: divalproex sod 250mg ER (24-hour) tablet PO SCH (21:18)
[2022-03-18] MEDS: lamoTRIgine 100mg tablet PO SCH (21:18)
[2022-03-18] MEDS: montelukast 10mg tablet PO SCH (21:19)
[2022-03-18] MEDS: fluvoxamine 25 MG tablet PO SCH (21:19)
--- NOTE | 2022-03-19 01:03 | NUR ---
Patilent is awake, she voided in brief. Patient cleaned, a new brief applied. Patient returns to sleep.
--- NOTE | 2022-03-19 02:20 | NUR ---
Patient sleeps. In view from nurses station.
--- NOTE | 2022-03-19 03:21 | NUR ---
Patient sleeping supine in bed. She has repositoned.
--- NOTE | 2022-03-19 04:48 | NUR ---
Patilent sleeps quietly, no distress. Supine position.
--- NOTE | 2022-03-19 06:50 | NUR ---
PT PULLED OFF FACIAL BANDAID. HANDS CLEANED AND NEW BANDAID APPLIED.
--- NOTE | 2022-03-19 07:06 | NUR ---
Received pt awake in bed, talking to herself. No distress noted.
[2022-03-19] MEDS: JUVEN Shake w/Arg/Glut/Ca2+Bmb (Juven 19.3gm) pkt 240ml PO SCH ×3 (08:00→18:00)
[2022-03-19] MEDS: nystatin 15 GM powder TP SCH ×2 (08:00→20:05)
[2022-03-19] MEDS: vortioxetine HBr tablet 5 MG TABLET PO SCH ×2 (09:28→20:05)
[2022-03-19] MEDS: benztropine 1mg tablet PO SCH ×2 (09:29→20:05)
[2022-03-19] MEDS: lactobacillus rhamnosus 10,000 MMU CELLS/CAPSULE PO SCH (09:29)
[2022-03-19] MEDS: atorvastatin 10mg tablet PO SCH (09:29)
[2022-03-19] MEDS: quetiapine 100mg tablet PO SCH (09:30)
[2022-03-19] MEDS: sennosides 8.6mg tablet PO SCH ×2 (09:30→20:05)
[2022-03-19] MEDS: LORazepam 1 MG tablet PO PRN (09:30)
[2022-03-19] MEDS: multivitamins, therapeutics tablet PO SCH (09:30)
--- NOTE | 2022-03-19 09:34 | NUR ---
PATIENT PULLED OFF FACIAL DRESSING AGAIN. BLOOD CLEANED UP AND NEW DRESSING APPILED.
--- NOTE | 2022-03-19 09:35 | NUR ---
THIS ELEMENTARY ASSISTANT TEACHER ASSISTED PATIENT WITH BREAKFAST TRAY. FINSIHED WHOLE MILK BOX.
--- NOTE | 2022-03-19 09:46 | NUR ---
Patient took all meds in mashed fruit. Patient resting comfortably now.
[2022-03-19] MEDS: nicotine 7mg patch - 24hr TD SCH (10:20)
[2022-03-19] MEDS: ascorbic acid 500mg tablet PO SCH ×2 (10:21→20:22)
[2022-03-19] MEDS: ferrous sulfate 325mg tablet PO SCH ×2 (10:21→20:05)
--- NOTE | 2022-03-19 13:56 | NUR ---
Patient was sleepy during lunch and only ate 25% of her meal.
--- NOTE | 2022-03-19 16:10 | NUR ---
Patient urinated in diaper, washed up and barrier cream applied, new diaper applied. Patient continues to remove bandage from face and scratch herself.
[2022-03-19] MEDS: quetiapine fumarate ER 300mg tablet PO SCH (16:50)
--- NOTE | 2022-03-19 17:32 | NUR ---
Face was cleansed with normal saline and therahoney applied with two large bandaids.
[2022-03-19] MEDS: polyethylene glycol 3350 17gm powd pack PO SCH (21:00)
[2022-03-19] MEDS: docusate sod 250mg capsule PO SCH (21:00)
[2022-03-19] MEDS: divalproex sod 250mg ER (24-hour) tablet PO SCH (21:17)
[2022-03-19] MEDS: lamoTRIgine 100mg tablet PO SCH (21:17)
[2022-03-19] MEDS: montelukast 10mg tablet PO SCH (21:17)
[2022-03-19] MEDS: fluvoxamine 25 MG tablet PO SCH (21:17)
--- NOTE | 2022-03-20 06:25 | NUR ---
Received report from PASQUALE Sal. Pt asleep with sitter at bedside. No distress noted.
--- NOTE | 2022-03-20 07:10 | NUR ---
Pt moved to OF bed #20. Pt awake and calm. Pt covered with warm blanket.
--- NOTE | 2022-03-20 07:12 | NUR ---
NO SITTER AT BEDSIDE. PT LOS OF STAFF.
[2022-03-20] MEDS: benztropine 1mg tablet PO SCH ×2 (08:28→20:04)
[2022-03-20] MEDS: ascorbic acid 500mg tablet PO SCH ×2 (08:29→20:10)
[2022-03-20] MEDS: ferrous sulfate 325mg tablet PO SCH ×2 (08:29→20:04)
[2022-03-20] MEDS: quetiapine 100mg tablet PO SCH (08:29)
[2022-03-20] MEDS: multivitamins, therapeutics tablet PO SCH (08:30)
[2022-03-20] MEDS: sennosides 8.6mg tablet PO SCH ×2 (08:30→20:04)
[2022-03-20] MEDS: vortioxetine HBr tablet 5 MG TABLET PO SCH ×2 (08:30→20:05)
[2022-03-20] MEDS: atorvastatin 10mg tablet PO SCH (08:30)
[2022-03-20] MEDS: lactobacillus rhamnosus 10,000 MMU CELLS/CAPSULE PO SCH (08:30)
[2022-03-20] MEDS: nystatin 15 GM powder TP SCH ×2 (08:31→20:05)
[2022-03-20] MEDS: nicotine 7mg patch - 24hr TD SCH (08:31)
[2022-03-20] MEDS: JUVEN Shake w/Arg/Glut/Ca2+Bmb (Juven 19.3gm) pkt 240ml PO SCH ×3 (08:47→18:00)
--- NOTE | 2022-03-20 09:00 | NUR ---
Pt awake, slightly restless. Pt was administered medication with pureed fruit. Pt ate about 30% of her breakfast and 100% of her protein shake.
--- NOTE | 2022-03-20 10:17 | NUR ---
Staff with patient changing depends, linens and cleaning pt up. Pt requires full assist.
--- NOTE | 2022-03-20 10:49 | NUR ---
Changed patient's brief. Assessed skin. No open areas. Some areas of redness noted in ja area. Nystatin powder applied.
--- NOTE | 2022-03-20 11:50 | NUR ---
Staff at bedside washing and brushing hair. Pt was crying, but has now calmed.
--- NOTE | 2022-03-20 12:30 | NUR ---
Pt fell asleep during lunch, will finish feeding when she wakes. Only ate a few bites.
--- NOTE | 2022-03-20 13:48 | NUR ---
Pt woke and ate more of her lunch. Consumed 100% of her protein shake. Carbs/Protein 25%.
[2022-03-20] MEDS: quetiapine fumarate ER 300mg tablet PO SCH (15:57)
--- NOTE | 2022-03-20 16:01 | NUR ---
Daily wound care on left cheek cleansed w/ normal saline solution. New xeroform on wound secured with small island dressing. Patient tolerated well and was cooperative during wound care.
--- NOTE | 2022-03-20 16:16 | NUR ---
Pt restless, but calm
--- NOTE | 2022-03-20 16:24 | NUR ---
Certified Cytotechnologist and LIVING NURSE preceptee assisted pt to recliner.
--- NOTE | 2022-03-20 17:00 | NUR ---
Pt requested tea, which was given.
--- NOTE | 2022-03-20 17:14 | NUR ---
Patient back in bed, moderately assisted literary writer and NEGATIVE CUTTER to her bed.
[2022-03-20] MEDS: LORazepam 1 MG tablet PO PRN ×2 (17:55→19:29)
--- NOTE | 2022-03-20 18:43 | NUR ---
FOOD TRAY PROVIDED, SITTER FEEDING PT
[2022-03-20] MEDS: docusate sod 250mg capsule PO SCH (20:05)
[2022-03-20] MEDS: polyethylene glycol 3350 17gm powd pack PO SCH (21:05)
[2022-03-20] MEDS: divalproex sod 250mg ER (24-hour) tablet PO SCH (21:05)
[2022-03-20] MEDS: lamoTRIgine 100mg tablet PO SCH (21:05)
[2022-03-20] MEDS: fluvoxamine 25 MG tablet PO SCH (21:05)
[2022-03-20] MEDS: montelukast 10mg tablet PO SCH (21:06)
--- NOTE | 2022-03-21 08:00 | NUR ---
patient awake and resting quitely in bed. no change in condition.
[2022-03-21] MEDS: benztropine 1mg tablet PO SCH ×2 (08:47→20:14)
[2022-03-21] MEDS: JUVEN Shake w/Arg/Glut/Ca2+Bmb (Juven 19.3gm) pkt 240ml PO SCH ×3 (08:47→18:29)
[2022-03-21] MEDS: lactobacillus rhamnosus 10,000 MMU CELLS/CAPSULE PO SCH (08:47)
[2022-03-21] MEDS: ferrous sulfate 325mg tablet PO SCH ×2 (08:47→20:13)
[2022-03-21] MEDS: atorvastatin 10mg tablet PO SCH (08:47)
[2022-03-21] MEDS: sennosides 8.6mg tablet PO SCH ×2 (08:48→20:13)
[2022-03-21] MEDS: ascorbic acid 500mg tablet PO SCH ×2 (08:48→20:14)
[2022-03-21] MEDS: quetiapine 100mg tablet PO SCH (08:48)
[2022-03-21] MEDS: multivitamins, therapeutics tablet PO SCH (08:48)
[2022-03-21] MEDS: nicotine 7mg patch - 24hr TD SCH (08:48)
[2022-03-21] MEDS: vortioxetine HBr tablet 5 MG TABLET PO SCH ×2 (08:48→20:14)
[2022-03-21] MEDS: nystatin 15 GM powder TP SCH ×2 (08:48→20:14)
--- NOTE | 2022-03-21 10:09 | NUR ---
wound dressing and linens changed. patient resting quietly. no distress noted.
--- NOTE | 2022-03-21 13:13 | NUR ---
patient resting quietly. did not want to eat lunch today and is requesting a DR. Diaz.
--- NOTE | 2022-03-21 15:22 | NUR ---
patient awake and continuously attempting to get out of beed. assisted back into bed multiple times
[2022-03-21] MEDS: quetiapine fumarate ER 300mg tablet PO SCH (15:43)
--- NOTE | 2022-03-21 16:51 | NUR ---
resting quietly. hot tea provided.
[2022-03-21] MEDS: LORazepam 1 MG tablet PO PRN (18:29)
--- NOTE | 2022-03-21 19:23 | NUR ---
Pt ate 100% of her meal, 50% of her shake. Pt slightly irritated, 2MG ativan given.
[2022-03-21] MEDS: divalproex sod 250mg ER (24-hour) tablet PO SCH (20:13)
[2022-03-21] MEDS: montelukast 10mg tablet PO SCH (20:13)
[2022-03-21] MEDS: fluvoxamine 25 MG tablet PO SCH (20:14)
[2022-03-21] MEDS: docusate sod 250mg capsule PO SCH (20:14)
[2022-03-21] MEDS: lamoTRIgine 100mg tablet PO SCH (20:14)
[2022-03-21] MEDS: traZODone 50mg tablet PO PRN (20:14)
[2022-03-21] MEDS: polyethylene glycol 3350 17gm powd pack PO SCH (20:36)
--- NOTE | 2022-03-21 21:32 | NUR ---
Pt appears to be sleeping.
--- NOTE | 2022-03-21 23:30 | NUR ---
Pt appears to be sleeping;
--- NOTE | 2022-03-22 02:39 | NUR ---
Pt appears to be sleeping.
--- NOTE | 2022-03-22 04:55 | NUR ---
Pt appears to be sleeping.
--- NOTE | 2022-03-22 06:30 | NUR ---
Pt is lying in bed, appears to be sleeping.
--- NOTE | 2022-03-22 07:07 | NUR ---
Pt awake, sitter reports that pt has been incontinent of urine, brief and clothing soaked through and bed wed. Pt cleansed and changed.
[2022-03-22] MEDS: JUVEN Shake w/Arg/Glut/Ca2+Bmb (Juven 19.3gm) pkt 240ml PO SCH ×3 (08:00→18:35)
--- NOTE | 2022-03-22 08:28 | NUR ---
Wound care nurse saw pt, changed dressing.
[2022-03-22] MEDS: ascorbic acid 500mg tablet PO SCH ×2 (09:28→21:30)
[2022-03-22] MEDS: multivitamins, therapeutics tablet PO SCH (09:29)
[2022-03-22] MEDS: ferrous sulfate 325mg tablet PO SCH ×2 (09:29→21:30)
[2022-03-22] MEDS: sennosides 8.6mg tablet PO SCH ×2 (09:29→21:31)
[2022-03-22] MEDS: lactobacillus rhamnosus 10,000 MMU CELLS/CAPSULE PO SCH (09:29)
[2022-03-22] MEDS: atorvastatin 10mg tablet PO SCH (09:29)
[2022-03-22] MEDS: benztropine 1mg tablet PO SCH ×2 (09:29→21:36)
[2022-03-22] MEDS: vortioxetine HBr tablet 5 MG TABLET PO SCH ×2 (09:29→20:00)
[2022-03-22] MEDS: quetiapine 100mg tablet PO SCH (09:29)
[2022-03-22] MEDS: nystatin 15 GM powder TP SCH ×2 (09:30→20:00)
[2022-03-22] MEDS: nicotine 7mg patch - 24hr TD SCH (09:42)
[2022-03-22] MEDS: LORazepam 1 MG tablet PO PRN ×2 (10:01→14:02)
--- NOTE | 2022-03-22 10:50 | NUR ---
elevator service technician changed and repositioned the patient.
--- NOTE | 2022-03-22 11:00 | NUR ---
Pt removed the dressing on her face. Dressing replaced.
--- NOTE | 2022-03-22 13:35 | NUR ---
Pt is constantly trying to get out of bed. Pt is stating that she wants a cigarette. Pt became angry with daycare teacher for not letting her have a cigarette and became verbally abusive towards the PCT.
--- NOTE | 2022-03-22 14:13 | NUR ---
Pt is yelling that she wants to get dressed, she wants to put shorts on, she wants to go outside.
--- NOTE | 2022-03-22 14:14 | NUR ---
Pt is yelling about underwear, "I can't stay in underwear all day long!" Pt is wearing incontinent briefs and is clean and dry. Pt yelled, "you won't let me out of this damn car!"
--- NOTE | 2022-03-22 14:25 | NUR ---
Physical Therapy is here to work with the patient.
--- NOTE | 2022-03-22 14:29 | NUR ---
Pt is walking with physical therapy using a FWW, a gait belt and 2 person assist (one person following behind with a w/c.)
--- NOTE | 2022-03-22 15:10 | NUR ---
Pt is sitting in a cardiac/gisela chair in her room.
--- NOTE | 2022-03-22 15:23 | NUR ---
Pt ambulated to the BR with PCT using gait belt and FWW.
--- NOTE | 2022-03-22 15:25 | NUR ---
[facility]AS[facility] charting reviewed 03/22/22 [id number]
--- NOTE | 2022-03-22 16:35 | NUR ---
Pt keeps saying she wants to sit up in the chair. We get her up in the cardiac chair and she continuously leans forwar and attempts to stand up on her own. Pt put back in the bed. Pt is attempting to climb out of bed constantly. Pt scooted herself to the edge of the foot of the bed, hanging her legs over the end, attempting to stand up. PCT unable to leave pt's bedside as pt will not follow directions. Pt keeps yelling that she needs a cigarette. Pt is threatening to hit the PCT.
--- NOTE | 2022-03-22 16:37 | NUR ---
Pt is yelling nonstop, contributing to the agitation of a new male pt who was just brought directly back to the overflow.
[2022-03-22] MEDS: quetiapine fumarate ER 300mg tablet PO SCH (16:49)
--- NOTE | 2022-03-22 17:04 | NUR ---
Pt is screaming obscenities. She cannot be verbally de-escalated, 2 male patients in the overflow becoming agitated from her screaming. Spoke with Azeb waters RN. Azeb spoke with and has obtained orders for Haldol 10 mg.
[2022-03-22] MEDS ORDERED: haloperidol lactate 5mg/ml inj IM ONE (17:05)
--- NOTE | 2022-03-22 17:15 | NUR ---
Lj cuellar in [facility] - 03/22/22 at 1715 by LINNEA Romel Banegas
--- NOTE | 2022-03-22 17:15 | NUR ---
Pt given Haldol 10 mg IM in her right ventrogluteal.
--- NOTE | 2022-03-22 20:30 | NUR ---
PT AMBULATED TO THE RESTROOM WITH THE HELP OF A FRONT WHEELED WALKER, AND STAFF STANDBY ASSIST. PT VOIDED IN THE TOILET, AND THEN AMBULATED BACK TO BED IN NO APPARENT DISTRESS.
[2022-03-22] MEDS: divalproex sod 250mg ER (24-hour) tablet PO SCH (21:27)
[2022-03-22] MEDS: docusate sod 250mg capsule PO SCH (21:28)
[2022-03-22] MEDS: montelukast 10mg tablet PO SCH (21:28)
[2022-03-22] MEDS: fluvoxamine 25 MG tablet PO SCH (21:29)
[2022-03-22] MEDS: lamoTRIgine 100mg tablet PO SCH (21:30)
[2022-03-22] MEDS: acetaminophen 325mg tablet PO PRN (21:30)
[2022-03-22] MEDS: polyethylene glycol 3350 17gm powd pack PO SCH (21:31)
--- NOTE | 2022-03-23 06:30 | NUR ---
Assumed care of patient. Pt was resting comfortably, respirations even and unlabored.
[2022-03-23] MEDS: JUVEN Shake w/Arg/Glut/Ca2+Bmb (Juven 19.3gm) pkt 240ml PO SCH ×3 (08:00→18:00)
--- NOTE | 2022-03-23 08:35 | NUR ---
Pt's breakfast tray at bedside. Will assist with feeding when she wakes. Respirations even and unlabored.
--- NOTE | 2022-03-23 08:45 | NUR ---
Pt assisted to bathroom, using FWW and gait belt. Pt's gait is slow, and steady. Pt is reminded to left her head as she keeps it contracted forward.
--- NOTE | 2022-03-23 09:30 | NUR ---
NOTED REDDENED AREA ON LEFT LATERAL HEEL. AREA BLANCES. OPTIFOAM PLACED.
--- NOTE | 2022-03-23 11:00 | NUR ---
Pt ambulated to bathroom, assisted by PCT. FWW and gait belt.
[2022-03-23] MEDS: quetiapine 100mg tablet PO SCH (11:39)
[2022-03-23] MEDS: multivitamins, therapeutics tablet PO SCH (11:39)
[2022-03-23] MEDS: atorvastatin 10mg tablet PO SCH (11:39)
[2022-03-23] MEDS: ascorbic acid 500mg tablet PO SCH ×2 (11:39→20:20)
[2022-03-23] MEDS: sennosides 8.6mg tablet PO SCH ×2 (11:39→20:20)
[2022-03-23] MEDS: vortioxetine HBr tablet 5 MG TABLET PO SCH ×2 (11:39→20:57)
[2022-03-23] MEDS: lactobacillus rhamnosus 10,000 MMU CELLS/CAPSULE PO SCH (11:39)
[2022-03-23] MEDS: ferrous sulfate 325mg tablet PO SCH ×2 (11:39→20:20)
[2022-03-23] MEDS: benztropine 1mg tablet PO SCH ×2 (11:39→20:21)
[2022-03-23] MEDS: nicotine 7mg patch - 24hr TD SCH (11:40)
[2022-03-23] MEDS: nystatin 15 GM powder TP SCH ×2 (11:40→20:00)
--- NOTE | 2022-03-23 12:30 | NUR ---
Pt awake eating lunch, PCT at bedside assisting.
[2022-03-23] MEDS: magnesium hydroxide 30ml (MOM) UD suspension PO PRN (13:27)
[2022-03-23] MEDS: acetaminophen 325mg tablet PO PRN (13:28)
--- NOTE | 2022-03-23 15:02 | NUR ---
Wound care completed per order. Pt tolerated well.
--- NOTE | 2022-03-23 15:04 | NUR ---
Pt trying to climb out of bed asking "I want to see the doctor." Pt is smiling and being cooperative at the moment.
--- NOTE | 2022-03-23 15:05 | NUR ---
Monitoring pt's bowel movements. Last charted was 03/19. Pt is on routine Colace 250 BID, Miralax HS, Senokot 8.6 daily, power pudding at meals. Pt's abd is supple, no tenderness with palpation, BS x4, abd not distended.
[2022-03-23] MEDS: quetiapine fumarate ER 300mg tablet PO SCH (15:29)
--- NOTE | 2022-03-23 15:35 | NUR ---
Pt assisted to bathroom with PCT, used FWW and gait belt.
--- NOTE | 2022-03-23 16:00 | NUR ---
Pt sitting up in chair next to her bed. Pt calm. PCT at bedside. Addendum: 03/23/22 at 1623 by LYNDA Pt presents with a bright affect. Pt smiling at jokes. Pt stated "I need tylenol or morphine," she the smiles. Pt is more verbal today, able to let her needs known. She is difficult to understand at times, but for the most able to decipher.
--- NOTE | 2022-03-23 17:30 | NUR ---
Pt was transported to main ED bed #9. Report given to TANYA Tristan. Pt is calm, FWW and gait belt at bedside with sippy cups.
--- NOTE | 2022-03-23 19:37 | NUR ---
PT IN ER ROOM 9. PT IS CONTINUOUSLY TRYING TO LEAVE HER ROOM. SITTER IS CURRENTLY REDIRECTING PT AND FEEDING HER DINNER.
[2022-03-23] MEDS: polyethylene glycol 3350 17gm powd pack PO SCH (20:18)
[2022-03-23] MEDS: docusate sod 250mg capsule PO SCH (20:19)
[2022-03-23] MEDS: montelukast 10mg tablet PO SCH (20:20)
[2022-03-23] MEDS: fluvoxamine 25 MG tablet PO SCH (20:21)
[2022-03-23] MEDS: lamoTRIgine 100mg tablet PO SCH (20:21)
[2022-03-23] MEDS: divalproex sod 250mg ER (24-hour) tablet PO SCH (20:21)
--- NOTE | 2022-03-23 20:37 | NUR ---
I agree with Florence Min assessment.
[2022-03-23] MEDS: traZODone 50mg tablet PO PRN (20:57)
--- NOTE | 2022-03-23 22:11 | NUR ---
PT IS NOW ASLEEP IN BED. RESPIRATIONS ARE EQUAL AND UNLABORED. NO DISTRESS OBSERVED AT THIS TIME.
[2022-03-24] MEDS: LORazepam 1 MG tablet PO PRN ×2 (04:21→20:04)
--- NOTE | 2022-03-24 04:22 | NUR ---
pt attempting to get out of bed this am. pts bedding changed and pt agreed to return to bed. pt given yogurt and coffee.
--- NOTE | 2022-03-24 05:23 | NUR ---
PER SITTER PT RIPPED OFF HER WOUND DRESSING ON HER FACE. ZEROFORM REMAINED IN PLACE, ISLAND DRESSING PLACED BACK OVER THE WOUND.
--- NOTE | 2022-03-24 06:50 | NUR ---
Patient asking to go to the BR. RN went to assist patient out of bed but patient had urinated in the bed. RN and tech cleaned patient and bed. Patient has fresh linen and a clean gown. Patient was smiling and saying we need to shave her head. No distress observed. Continue to monitor.
[2022-03-24] MEDS: nicotine 7mg patch - 24hr TD SCH (08:00)
--- NOTE | 2022-03-24 08:25 | NUR ---
Tech is feeding patient. Patient would not attempt to feed herself. Patient ate 100% of her breakfast. Continue to monitor.
[2022-03-24] MEDS: vortioxetine HBr tablet 5 MG TABLET PO SCH ×2 (08:44→20:04)
[2022-03-24] MEDS: lactobacillus rhamnosus 10,000 MMU CELLS/CAPSULE PO SCH (08:44)
[2022-03-24] MEDS: ascorbic acid 500mg tablet PO SCH ×2 (08:44→20:10)
[2022-03-24] MEDS: atorvastatin 10mg tablet PO SCH (08:44)
[2022-03-24] MEDS: ferrous sulfate 325mg tablet PO SCH ×2 (08:45→20:04)
[2022-03-24] MEDS: nystatin 15 GM powder TP SCH ×2 (08:45→20:04)
[2022-03-24] MEDS: multivitamins, therapeutics tablet PO SCH (08:45)
[2022-03-24] MEDS: quetiapine 100mg tablet PO SCH (08:45)
[2022-03-24] MEDS: sennosides 8.6mg tablet PO SCH ×2 (08:45→20:04)
[2022-03-24] MEDS: benztropine 1mg tablet PO SCH ×2 (08:45→20:04)
[2022-03-24] MEDS: JUVEN Shake w/Arg/Glut/Ca2+Bmb (Juven 19.3gm) pkt 240ml PO SCH ×3 (08:46→18:07)
--- NOTE | 2022-03-24 10:05 | NUR ---
Tech walked patient to the BR with walker and gait belt. RN also at side for assistance. Patient used the BR and got up and is not sitting in her recliner doing well. Continue to monitor.
--- NOTE | 2022-03-24 10:55 | NUR ---
RAFAEL/ Ariana reports to RN that someone from B will come and assess patient today for possible placement.Patient up on a recliner, in view of RN.
--- NOTE | 2022-03-24 11:37 | NUR ---
Patient is sitting up in the chair watching tv
--- NOTE | 2022-03-24 12:02 | NUR ---
[facility] (2 women) evaluating patient for possible placement. Continue to monitor.
--- NOTE | 2022-03-24 12:50 | NUR ---
Patient eating lunch. No distress observed. Continue to monitor.
--- NOTE | 2022-03-24 14:40 | NUR ---
Patient has done a lot of walking today. Patient actually got up by herself and started walking toward nurses station. Continue to monitor.
--- NOTE | 2022-03-24 15:21 | NUR ---
Patient's hair was washed and combed through. Patient appeared to enjoy her hair washed. Continue to monitor
[2022-03-24] MEDS: quetiapine fumarate ER 300mg tablet PO SCH (16:24)
[2022-03-24] MEDS: ibuprofen 200mg tablet PO PRN (16:25)
--- NOTE | 2022-03-24 17:06 | NUR ---
Patient keeps getting up and walking with and without her walker. Patient appears steady on her feet but was attempting to walk with her walker with her coffee in her hand. RN gave patient ibuprofen for back pain and patient has walked so much, for any bodyaches. Patient should sleep well tonight. Patient has smiled a lot today and even laughed. Continue to monitor.
--- NOTE | 2022-03-24 17:47 | NUR ---
Dad, Trino Fitzgerald,
--- NOTE | 2022-03-24 18:30 | NUR ---
received report from Mera RN, pt sitting up in chair, no resp distress
--- NOTE | 2022-03-24 19:20 | NUR ---
Tech gave pt shower
[2022-03-24] MEDS: traZODone 50mg tablet PO PRN (20:04)
[2022-03-24] MEDS: polyethylene glycol 3350 17gm powd pack PO SCH (20:10)
[2022-03-24] MEDS: montelukast 10mg tablet PO SCH (20:10)
[2022-03-24] MEDS: docusate sod 250mg capsule PO SCH (20:10)
[2022-03-24] MEDS: fluvoxamine 25 MG tablet PO SCH (20:14)
[2022-03-24] MEDS: lamoTRIgine 100mg tablet PO SCH (20:14)
[2022-03-24] MEDS: divalproex sod 250mg ER (24-hour) tablet PO SCH (20:14)
--- NOTE | 2022-03-24 20:30 | NUR ---
Pt trying to leave the unit, security called and assisted to bed. HS meds adminsitered along with PRN Ativan and trazodone
--- NOTE | 2022-03-24 22:30 | NUR ---
pt sleeping, eyes closed with chest rise and falls
--- NOTE | 2022-03-25 00:30 | NUR ---
pt sleeping on back, eyes closed, chest rises and falls
--- NOTE | 2022-03-25 02:30 | NUR ---
pt trying to get out of bed and yelling, administered Ativan 2mg and Haldol 5mg now per Dr Morales
[2022-03-25] MEDS ORDERED: haloperidol 5mg tablet PO STA (02:36)
[2022-03-25] MEDS ORDERED: LORazepam 1 MG tablet PO STA (02:36)
--- NOTE | 2022-03-25 02:37 | NUR ---
verbal order received by Dr Morales for ativan and haldol po, so ordered.
--- NOTE | 2022-03-25 04:30 | NUR ---
pt sleeping on back, eyes closed and chest rises and falls
--- NOTE | 2022-03-25 06:11 | NUR ---
pt up moving around in bed, no distress
--- NOTE | 2022-03-25 07:26 | NUR ---
Patient awake and moving around in bed. No distress observed. Continue to monitor.
[2022-03-25] MEDS: ferrous sulfate 325mg tablet PO SCH ×2 (08:00→19:37)
--- NOTE | 2022-03-25 08:37 | NUR ---
Patient being fed breakfast. No distress observed. Continue to monitor.
[2022-03-25] MEDS: atorvastatin 10mg tablet PO SCH (08:57)
[2022-03-25] MEDS: benztropine 1mg tablet PO SCH ×2 (08:57→19:37)
[2022-03-25] MEDS: quetiapine 100mg tablet PO SCH (08:57)
[2022-03-25] MEDS: vortioxetine HBr tablet 5 MG TABLET PO SCH ×2 (08:57→19:37)
[2022-03-25] MEDS: sennosides 8.6mg tablet PO SCH ×2 (08:57→19:37)
[2022-03-25] MEDS: lactobacillus rhamnosus 10,000 MMU CELLS/CAPSULE PO SCH (08:57)
[2022-03-25] MEDS: nicotine 7mg patch - 24hr TD SCH (08:58)
[2022-03-25] MEDS: multivitamins, therapeutics tablet PO SCH (08:58)
[2022-03-25] MEDS: nystatin 15 GM powder TP SCH ×2 (08:59→20:08)
[2022-03-25] MEDS: JUVEN Shake w/Arg/Glut/Ca2+Bmb (Juven 19.3gm) pkt 240ml PO SCH ×3 (08:59→18:14)
[2022-03-25] MEDS: ascorbic acid 500mg tablet PO SCH ×2 (09:00→20:06)
--- NOTE | 2022-03-25 09:50 | NUR ---
Patient scratching at her wound and it started to bleed. Tech cleaned patient and placed another dressing on her face. Patient was asked not to touch her face. Continue to monitor.
--- NOTE | 2022-03-25 10:17 | NUR ---
RN and Tech assisted patient out of the bed. Patient appears medicated. RN and tech with gait belt and walker assisted patient to the BR to urinate. Patient needed assistance but was able to bear weight on her own. Patient placed back in bed where she appeared sleepy. Continue to monitor.
--- NOTE | 2022-03-25 12:14 | NUR ---
Patient being fed lunch. No distress observed. Continue to monitor.
--- NOTE | 2022-03-25 13:05 | NUR ---
RN and Marleny changed patient's diaper. Urine only. Patient tolerated well. Continue to monitor.
--- NOTE | 2022-03-25 14:02 | NUR ---
RN fed patient her power pudding in her chocolate pudding. Patient like the pudding. RN also fed patient the power pudding this morning and held her FeSO4 due to constipation. Patient also just finished speaking to her dad on the phone. Patient is doing well today. Continue to monitor.
--- NOTE | 2022-03-25 15:30 | NUR ---
Patient's heels are red. RN and tech placed boots on patient. Patient moves around so much she is constantly rubbing her heels. RN and tech attempt to float her heals each time we move or change patient. It does not matter. Patient has capability to move herself. Continue to monitor.
[2022-03-25] MEDS: quetiapine fumarate ER 300mg tablet PO SCH (16:26)
--- NOTE | 2022-03-25 17:17 | NUR ---
RN got patient up to the chair and patient had a drink Patient listened to music and watched music videos. Patient has a poor attention span but did seem to enjoy the time she watched. Patient then walked a little bit and then turned herself around (with RN, walker and gait belt) and wanted to go back to bed. Patient's diaper was wet and RN and tech cleaned patient and placed her clean diaper on before she got into bet. RN placed the boots back on patient to protect her heels. RN will take pictures tomorrow. No distress observed. Continue to monitor.
--- NOTE | 2022-03-25 18:30 | NUR ---
Patient is awake, minor anxiety present. Patient is mid fowlers in bed. In direct view from nurses station.
[2022-03-25] MEDS: traZODone 50mg tablet PO PRN (19:38)
[2022-03-25] MEDS: divalproex sod 250mg ER (24-hour) tablet PO SCH (20:06)
[2022-03-25] MEDS: lamoTRIgine 100mg tablet PO SCH (20:07)
[2022-03-25] MEDS: LORazepam 1 MG tablet PO PRN (20:07)
[2022-03-25] MEDS: fluvoxamine 25 MG tablet PO SCH (20:07)
[2022-03-25] MEDS: docusate sod 250mg capsule PO SCH (20:08)
[2022-03-25] MEDS: montelukast 10mg tablet PO SCH (20:14)
--- NOTE | 2022-03-25 20:32 | NUR ---
Patient is awake, somewhat restless. All NOC med's given crushed. Patient has eaten most of her dinner. She is able to spoon feed herself some. Patient is fluffed, Nystatin powder placed. Patient cleaned.
[2022-03-25] MEDS: polyethylene glycol 3350 17gm powd pack PO SCH (21:00)
--- NOTE | 2022-03-25 21:33 | NUR ---
Patient sleeps quietly, low fowlers in bed. Heels are floated. No distress noted.
--- NOTE | 2022-03-26 00:10 | NUR ---
Patient sleeping quietly. No distress noted.
--- NOTE | 2022-03-26 01:38 | NUR ---
Patient is sleeping quietly, no distress.
--- NOTE | 2022-03-26 02:34 | NUR ---
Patient continues to sleep quietly. In view from nurses station.
--- NOTE | 2022-03-26 04:00 | NUR ---
Patient sleeps quietly.
--- NOTE | 2022-03-26 05:29 | NUR ---
Patient is awake, oriented to baseline which is mostly confused. Patient had a wet brief. All bedding changed. Patient cleaned, Her brief changed. Patient moved to mid fowlers position. Protective boots removed on a tempory basis at patient request. Warm blankets supplied. Patient i9s cooperative with staff.
--- NOTE | 2022-03-26 05:35 | NUR ---
Vital signs being taken. Bandage is clean and intact left face.
--- NOTE | 2022-03-26 06:35 | NUR ---
Patient sleeping supine. No distress observed. Continue to monitor.
--- NOTE | 2022-03-26 07:10 | NUR ---
TANYA and Marleny Khalil changing patient's diaper and linen. RN placed patient's boots on due to redness to bilateral heels. Patient tolerated well. Continue to monitor.
[2022-03-26] MEDS: ferrous sulfate 325mg tablet PO SCH ×2 (08:00→19:26)
[2022-03-26] MEDS: atorvastatin 10mg tablet PO SCH (08:30)
[2022-03-26] MEDS: lactobacillus rhamnosus 10,000 MMU CELLS/CAPSULE PO SCH (08:30)
[2022-03-26] MEDS: JUVEN Shake w/Arg/Glut/Ca2+Bmb (Juven 19.3gm) pkt 240ml PO SCH ×3 (08:30→17:38)
[2022-03-26] MEDS: benztropine 1mg tablet PO SCH ×2 (08:30→19:24)
[2022-03-26] MEDS: sennosides 8.6mg tablet PO SCH ×2 (08:30→19:25)
[2022-03-26] MEDS: multivitamins, therapeutics tablet PO SCH (08:31)
[2022-03-26] MEDS: nystatin 15 GM powder TP SCH ×2 (08:31→19:46)
[2022-03-26] MEDS: nicotine 7mg patch - 24hr TD SCH (08:31)
[2022-03-26] MEDS: ascorbic acid 500mg tablet PO SCH ×2 (08:31→19:25)
[2022-03-26] MEDS: vortioxetine HBr tablet 5 MG TABLET PO SCH ×2 (08:31→19:25)
[2022-03-26] MEDS: quetiapine 100mg tablet PO SCH (08:31)
--- NOTE | 2022-03-26 08:53 | NUR ---
Marleny and RN fed patient. RN giving her meds in her oatmeal mixed with her power pudding. RN also gave patient about 1/2 of her shake. Patient was falling asleep between bites. Patient is not sleeping. Continue to monitor.
--- NOTE | 2022-03-26 10:11 | NUR ---
Patient wanting to take her boots off. RN explained to patient that her heels are red from her rubbing her heels as she attempts to get out of bed. Patient is not redirectable at this time. continue to monitor.
--- NOTE | 2022-03-26 11:04 | NUR ---
RN and babatunde took pictures of patient's facial lesions and her bilateral heels. Patient's heels are Stage 1 pressure ulcers. Patient was placed in boots yesterday. Patient continues to rub her heels (with the boots) on the bed to scooch down in an attempt to get out of bed. Continue to monitor.
--- NOTE | 2022-03-26 12:32 | NUR ---
Patient being fed her lunch. No distress observed. Patient had taken off one of her boots but RN put it back on. Continue to monitor.
--- NOTE | 2022-03-26 13:23 | NUR ---
Patient awake and laying in bed. Patient is attempting to get out of bed. Continue to monitor.
[2022-03-26] MEDS: ibuprofen 200mg tablet PO PRN (14:02)
[2022-03-26] MEDS: LORazepam 1 MG tablet PO PRN ×2 (14:02→19:25)
--- NOTE | 2022-03-26 14:08 | NUR ---
Patient walked around the nurses station with a gait belt on. Patient with her walker and RN at side. Patient was given a choice to sit in her chair or sit in the bed. Patient chose the bed. RN and tech got patient in bed, boots on and comfortable. Then patient starts yelling. "I don't want to be here! Let me out! Let me out! Let me Out!" RN spoke to patient about this place being temporary and that her people are looking for a home for her. RN gave patient ibuprofen and Ativan to help with any soreness and anxiety. Continue to monitor.
[2022-03-26] MEDS ORDERED: haloperidol lactate 5mg/ml inj ONE (14:36)
--- NOTE | 2022-03-26 14:42 | NUR ---
Mera MARTÍNEZ went to main ER to ask dr for meds as patient was escalting, i was a lone with pt when she flung both legs over rail in attempt to get out of bed, I ran over to keep her from falling. In that she tried to kick and hit me. Yelling " to get her the fuck out of here!!" "let me out!!". I managed to keep her in bed until a technical support technician walked by where I asked her to get me some help. [employer] was able to come and help assist me in keeping her in bed.
--- NOTE | 2022-03-26 16:30 | NUR ---
Patient is calm and in bed watching T.V. Patient yells out on occasion, but not constantly. Continue to monitor.
--- NOTE | 2022-03-26 17:35 | NUR ---
RN and Marleny cleaned and changed patient. Incontinent of urine. Patient is now again attempting to get out of bed. Continue to monitor.
[2022-03-26] MEDS: quetiapine fumarate ER 300mg tablet PO SCH (17:38)
[2022-03-26] MEDS: traZODone 50mg tablet PO PRN (19:25)
--- NOTE | 2022-03-26 19:40 | NUR ---
The patient moved to bed 7 in the main ER. She was assisted with her evening meal and she ate 100%. She is only oriented to herself. When asked where she thought she was at she stated [place] then [place]. She was reorented to date, place and circumstances of why she is here and the pending plan for placement. She is currently very restless.
[2022-03-26] MEDS: divalproex sod 250mg ER (24-hour) tablet PO SCH (20:00)
[2022-03-26] MEDS: lamoTRIgine 100mg tablet PO SCH (20:01)
[2022-03-26] MEDS: polyethylene glycol 3350 17gm powd pack PO SCH (20:01)
[2022-03-26] MEDS: fluvoxamine 25 MG tablet PO SCH (20:01)
[2022-03-26] MEDS: docusate sod 250mg capsule PO SCH (20:01)
[2022-03-26] MEDS: montelukast 10mg tablet PO SCH (20:04)
--- NOTE | 2022-03-26 20:07 | NUR ---
The patient increasingly restless and yelling
--- NOTE | 2022-03-26 20:51 | NUR ---
The patient appears to be sleeping
--- NOTE | 2022-03-26 22:00 | NUR ---
Patient up to the bedside commode but had already been incontinent of urine. Patient assisted with hygiene and is now back in bed. She is confused to time and is restless.
--- NOTE | 2022-03-26 23:36 | NUR ---
The patient continues restless and disoriented.
--- NOTE | 2022-03-27 01:30 | NUR ---
The patient appears to be sleeping at this time
--- NOTE | 2022-03-27 02:44 | NUR ---
The patient appears to be sleeping
--- NOTE | 2022-03-27 04:38 | NUR ---
The patient appears to be sleeping
--- NOTE | 2022-03-27 05:43 | NUR ---
The patient appears to be sleeping
[2022-03-27] MEDS: ascorbic acid 500mg tablet PO SCH ×2 (07:46→20:23)
[2022-03-27] MEDS: quetiapine 100mg tablet PO SCH (07:46)
[2022-03-27] MEDS: sennosides 8.6mg tablet PO SCH ×2 (07:46→20:23)
[2022-03-27] MEDS: atorvastatin 10mg tablet PO SCH (07:46)
[2022-03-27] MEDS: benztropine 1mg tablet PO SCH ×2 (07:46→20:23)
[2022-03-27] MEDS: lactobacillus rhamnosus 10,000 MMU CELLS/CAPSULE PO SCH (07:46)
[2022-03-27] MEDS: multivitamins, therapeutics tablet PO SCH (07:47)
[2022-03-27] MEDS: ferrous sulfate 325mg tablet PO SCH ×2 (07:47→20:23)
[2022-03-27] MEDS: nicotine 7mg patch - 24hr TD SCH (07:51)
[2022-03-27] MEDS: nystatin 15 GM powder TP SCH ×2 (07:51→20:23)
[2022-03-27] MEDS: JUVEN Shake w/Arg/Glut/Ca2+Bmb (Juven 19.3gm) pkt 240ml PO SCH ×3 (08:18→20:08)
[2022-03-27] MEDS: vortioxetine HBr tablet 5 MG TABLET PO SCH ×2 (08:50→20:23)
[2022-03-27] MEDS: LORazepam 1 MG tablet PO PRN (12:08)
[2022-03-27] MEDS: quetiapine fumarate ER 300mg tablet PO SCH (16:04)
--- NOTE | 2022-03-27 19:18 | NUR ---
Pt. laying in bed, awake and alert. Pt. is yelling while she lays in bed and does not want to be here
[2022-03-27] MEDS: docusate sod 250mg capsule PO SCH (21:31)
[2022-03-27] MEDS: divalproex sod 250mg ER (24-hour) tablet PO SCH (21:31)
[2022-03-27] MEDS: polyethylene glycol 3350 17gm powd pack PO SCH (21:32)
[2022-03-27] MEDS: lamoTRIgine 100mg tablet PO SCH (21:32)
[2022-03-27] MEDS: fluvoxamine 25 MG tablet PO SCH (21:32)
[2022-03-27] MEDS: montelukast 10mg tablet PO SCH (21:32)
--- NOTE | 2022-03-27 23:51 | NUR ---
Pt. sleeping, no apparent distress. Spo2 94% on RA. Pt's brief, bedding and gown changed. Wound on left side of face has serosanguinous drainage. Wound was cleansed and bandage applied
--- NOTE | 2022-03-28 01:58 | NUR ---
Pt. sleeping, no distress, vvs
--- NOTE | 2022-03-28 03:09 | NUR ---
Pt. sleeping, no distress
[2022-03-28] MEDS: LORazepam 1 MG tablet PO PRN ×3 (04:20→20:37)
[2022-03-28] MEDS: multivitamins, therapeutics tablet PO SCH (08:32)
[2022-03-28] MEDS: sennosides 8.6mg tablet PO SCH ×2 (08:33→20:37)
[2022-03-28] MEDS: ferrous sulfate 325mg tablet PO SCH ×2 (08:33→20:38)
[2022-03-28] MEDS: atorvastatin 10mg tablet PO SCH (08:33)
[2022-03-28] MEDS: lactobacillus rhamnosus 10,000 MMU CELLS/CAPSULE PO SCH (08:33)
[2022-03-28] MEDS: ascorbic acid 500mg tablet PO SCH ×2 (08:33→20:37)
[2022-03-28] MEDS: benztropine 1mg tablet PO SCH ×2 (08:33→20:38)
[2022-03-28] MEDS: quetiapine 100mg tablet PO SCH (08:33)
[2022-03-28] MEDS: JUVEN Shake w/Arg/Glut/Ca2+Bmb (Juven 19.3gm) pkt 240ml PO SCH ×3 (08:34→17:57)
[2022-03-28] MEDS: nicotine 7mg patch - 24hr TD SCH (08:34)
[2022-03-28] MEDS: nystatin 15 GM powder TP SCH ×2 (08:34→20:38)
[2022-03-28] MEDS: vortioxetine HBr tablet 5 MG TABLET PO SCH ×2 (10:46→20:37)
--- NOTE | 2022-03-28 11:17 | NUR ---
breaking primary RN - pt on hospital bed, sitter at bedside.
[2022-03-28] MEDS: quetiapine fumarate ER 300mg tablet PO SCH (15:19)
[2022-03-28] MEDS: polyethylene glycol 3350 17gm powd pack PO SCH (20:36)
[2022-03-28] MEDS: montelukast 10mg tablet PO SCH (20:36)
[2022-03-28] MEDS: traZODone 50mg tablet PO PRN (20:36)
[2022-03-28] MEDS: lamoTRIgine 100mg tablet PO SCH (20:37)
[2022-03-28] MEDS: ibuprofen 200mg tablet PO PRN (20:37)
[2022-03-28] MEDS: fluvoxamine 25 MG tablet PO SCH (20:37)
[2022-03-28] MEDS: docusate sod 250mg capsule PO SCH (20:38)
[2022-03-28] MEDS: divalproex sod 250mg ER (24-hour) tablet PO SCH (20:38)
--- NOTE | 2022-03-28 20:51 | NUR ---
The patient moved to bed 26 in the ER overflow. She was agitated and yelling on arrival. She is one to one with a sitter. She was able to answer brief questions.
--- NOTE | 2022-03-28 21:00 | NUR ---
The patient appears to be sleeping
--- NOTE | 2022-03-28 22:06 | NUR ---
The patient appears to be sleeping
--- NOTE | 2022-03-29 00:01 | NUR ---
The patient appears to be sleeping
--- NOTE | 2022-03-29 02:06 | NUR ---
The patient appears to be sleeping
--- NOTE | 2022-03-29 03:28 | NUR ---
The patient is currently awake and assisted with incontinent care
--- NOTE | 2022-03-29 05:05 | NUR ---
The patient is awake and yelling
[2022-03-29] MEDS: LORazepam 1 MG tablet PO PRN ×3 (05:23→20:03)
--- NOTE | 2022-03-29 06:30 | NUR ---
PT APPEARS TO BE SLEEPING
[2022-03-29] MEDS: nystatin 15 GM powder TP SCH ×2 (08:00→20:04)
[2022-03-29] MEDS: JUVEN Shake w/Arg/Glut/Ca2+Bmb (Juven 19.3gm) pkt 240ml PO SCH ×3 (08:00→18:00)
--- NOTE | 2022-03-29 08:20 | NUR ---
[facility] ATTENDANT documentation reviewed and in agreement 03/28/22
--- NOTE | 2022-03-29 08:20 | NUR ---
Pt ate 100% of her breakfast. She is now drinking coffee.
--- NOTE | 2022-03-29 10:20 | NUR ---
Pt total assist care. Provided total care. Bed change, gown change, zinc oxide paste applied to back and buttoks and all other areas as needed. Pt placed on left side. Pt asking for her son.
[2022-03-29] MEDS: lactobacillus rhamnosus 10,000 MMU CELLS/CAPSULE PO SCH (10:45)
[2022-03-29] MEDS: ibuprofen 200mg tablet PO PRN (10:45)
[2022-03-29] MEDS: ferrous sulfate 325mg tablet PO SCH ×2 (10:45→20:02)
[2022-03-29] MEDS: benztropine 1mg tablet PO SCH ×2 (10:45→20:02)
[2022-03-29] MEDS: sennosides 8.6mg tablet PO SCH ×2 (10:45→20:03)
[2022-03-29] MEDS: quetiapine 100mg tablet PO SCH (10:45)
[2022-03-29] MEDS: multivitamins, therapeutics tablet PO SCH (10:45)
[2022-03-29] MEDS: atorvastatin 10mg tablet PO SCH (10:47)
[2022-03-29] MEDS: vortioxetine HBr tablet 5 MG TABLET PO SCH ×2 (10:53→20:03)
[2022-03-29] MEDS: ascorbic acid 500mg tablet PO SCH ×2 (11:04→20:03)
[2022-03-29] MEDS: nicotine 7mg patch - 24hr TD SCH (11:04)
--- NOTE | 2022-03-29 15:16 | NUR ---
Lj cuellar in [facility] - 03/29/22 at 1518 by AKBAR Mother's #[phone]. Pt is connected with [place]. Her last injection was Roro Bailey 03/15/2022.
[2022-03-29] MEDS: quetiapine fumarate ER 300mg tablet PO SCH (15:33)
--- NOTE | 2022-03-29 17:02 | NUR ---
Pt appears to be resting. She has been calm and cooperative today. Pt had a "zoom interview." nutrition services associate assited with the interview.
--- NOTE | 2022-03-29 19:00 | NUR ---
The patient almost fell out of bed and highway traffic control technician assisted her back into bed. Nursing supp made aware that the patient is an elevated fall risk.
[2022-03-29] MEDS: divalproex sod 250mg ER (24-hour) tablet PO SCH (20:02)
[2022-03-29] MEDS: polyethylene glycol 3350 17gm powd pack PO SCH (20:02)
[2022-03-29] MEDS: fluvoxamine 25 MG tablet PO SCH (20:02)
[2022-03-29] MEDS: lamoTRIgine 100mg tablet PO SCH (20:03)
[2022-03-29] MEDS: docusate sod 250mg capsule PO SCH (20:03)
[2022-03-29] MEDS: traZODone 50mg tablet PO PRN (20:03)
[2022-03-29] MEDS: montelukast 10mg tablet PO SCH (20:03)
[2022-03-29] MEDS: acetaminophen 325mg tablet PO PRN (20:04)
--- NOTE | 2022-03-29 20:44 | NUR ---
The patient is quietly resting on her bed. Asked for and received decaff coffee
--- NOTE | 2022-03-29 22:18 | NUR ---
The patient was incontinent of a large BM and urine. She was assisted with hygiene and incontinent care. Dressing changed to left cheek.
--- NOTE | 2022-03-29 23:29 | NUR ---
The patient appears to be sleeping
--- NOTE | 2022-03-30 01:05 | NUR ---
The patient appears to be sleeping
--- NOTE | 2022-03-30 02:55 | NUR ---
The patient appears to be sleeping
--- NOTE | 2022-03-30 05:11 | NUR ---
The patient appears to be sleeping
--- NOTE | 2022-03-30 07:23 | NUR ---
Patient sleeping at change of shift. Patient continues to sleep. No S/S of distress noted.
[2022-03-30] MEDS: nicotine 7mg patch - 24hr TD SCH (08:00)
[2022-03-30] MEDS: lactobacillus rhamnosus 10,000 MMU CELLS/CAPSULE PO SCH (08:24)
[2022-03-30] MEDS: quetiapine 100mg tablet PO SCH (08:24)
[2022-03-30] MEDS: ascorbic acid 500mg tablet PO SCH ×3 (08:24→21:11)
[2022-03-30] MEDS: ferrous sulfate 325mg tablet PO SCH ×3 (08:24→21:11)
[2022-03-30] MEDS: multivitamins, therapeutics tablet PO SCH (08:24)
[2022-03-30] MEDS: benztropine 1mg tablet PO SCH ×2 (08:24→21:12)
[2022-03-30] MEDS: sennosides 8.6mg tablet PO SCH ×2 (08:24→21:11)
[2022-03-30] MEDS: vortioxetine HBr tablet 5 MG TABLET PO SCH ×2 (08:24→21:13)
[2022-03-30] MEDS: JUVEN Shake w/Arg/Glut/Ca2+Bmb (Juven 19.3gm) pkt 240ml PO SCH ×3 (08:25→17:55)
[2022-03-30] MEDS: atorvastatin 10mg tablet PO SCH (08:28)
[2022-03-30] MEDS: nystatin 15 GM powder TP SCH ×2 (08:36→21:13)
--- NOTE | 2022-03-30 09:23 | NUR ---
Changed patient's diaper.
[2022-03-30] MEDS: LORazepam 1 MG tablet PO PRN ×2 (10:58→22:54)
--- NOTE | 2022-03-30 12:18 | NUR ---
Breaking RN for lunch. Received report
--- NOTE | 2022-03-30 14:50 | NUR ---
Patient had pulled off her diaper and urinated on the bed. Bed cleansed, new sheets placed with new diaper.
[2022-03-30] MEDS: quetiapine fumarate ER 300mg tablet PO SCH (16:49)
--- NOTE | 2022-03-30 17:17 | NUR ---
Patient was wet with urine. Changed all patient's linens, cleaned patient and used barrier cream.
--- NOTE | 2022-03-30 18:31 | NUR ---
PT IS IN BED IN ER ROOM 15. PT IS CALLING OUT AND SCRATCHING AT THE WOUND ON HER CHEEK. FUNERAL CAR DRIVER IS IN THE ROOM REDIRECTING PT AND CLEANING THE WOUND.
--- NOTE | 2022-03-30 19:45 | NUR ---
I agree with Florence Min assessment.
--- NOTE | 2022-03-30 20:58 | NUR ---
Dorian gave the patient a bedbath, got her up to the bedside commode and took her for a walk with the front wheeled walker. Pt did well with SBA x 1 and ambulated 40 feet. Now back to bed sitting EOB and drinking coffee.
[2022-03-30] MEDS: docusate sod 250mg capsule PO SCH (21:11)
[2022-03-30] MEDS: montelukast 10mg tablet PO SCH (21:11)
[2022-03-30] MEDS: fluvoxamine 25 MG tablet PO SCH (21:12)
[2022-03-30] MEDS: lamoTRIgine 100mg tablet PO SCH (21:12)
[2022-03-30] MEDS: divalproex sod 250mg ER (24-hour) tablet PO SCH (21:12)
[2022-03-30] MEDS: polyethylene glycol 3350 17gm powd pack PO SCH (21:14)
--- NOTE | 2022-03-30 22:53 | NUR ---
she continues to try to crawl out of bed.
--- NOTE | 2022-03-31 06:23 | NUR ---
Pt. brought over in bed from the main ER. He appeared restless and was requesting her medications and coffee. Will continue to monitor closely. Addendum: 03/31/22 at 0630 by WILY Pt. has pressure relieving boots in place.
[2022-03-31] MEDS: benztropine 1mg tablet PO SCH ×2 (07:11→20:00)
[2022-03-31] MEDS: atorvastatin 10mg tablet PO SCH (07:11)
[2022-03-31] MEDS: ferrous sulfate 325mg tablet PO SCH ×2 (07:11→22:02)
[2022-03-31] MEDS: sennosides 8.6mg tablet PO SCH ×2 (07:11→22:02)
[2022-03-31] MEDS: lactobacillus rhamnosus 10,000 MMU CELLS/CAPSULE PO SCH (07:11)
[2022-03-31] MEDS: quetiapine 100mg tablet PO SCH (07:12)
[2022-03-31] MEDS: nicotine 7mg patch - 24hr TD SCH (07:12)
[2022-03-31] MEDS: ascorbic acid 500mg tablet PO SCH ×2 (07:12→20:00)
[2022-03-31] MEDS: multivitamins, therapeutics tablet PO SCH (07:12)
[2022-03-31] MEDS: vortioxetine HBr tablet 5 MG TABLET PO SCH ×2 (07:12→20:00)
[2022-03-31] MEDS: LORazepam 1 MG tablet PO PRN ×3 (07:13→18:45)
--- NOTE | 2022-03-31 07:15 | NUR ---
Pt. remains restless, she pulled off bandage on her face. PRN Ativan was administered, will continue to monitor.
[2022-03-31] MEDS: JUVEN Shake w/Arg/Glut/Ca2+Bmb (Juven 19.3gm) pkt 240ml PO SCH ×3 (08:18→18:32)
[2022-03-31] MEDS: nystatin 15 GM powder TP SCH ×2 (08:19→20:00)
--- NOTE | 2022-03-31 08:39 | NUR ---
Pt. is laying in bed at this time, napping intermittently. She makes frequent body adjustments.
--- NOTE | 2022-03-31 09:45 | NUR ---
Pt. requires assistance eating due to weakness and confustion, however she was able to ambulate with the use of her walker with staff stand-by assist.
--- NOTE | 2022-03-31 10:30 | NUR ---
Pt. had an incontinent episode and was able to stand and ambulate while her linens were changed by staff. She returned to bed and is watching TV at this time, snack provided.
--- NOTE | 2022-03-31 12:28 | NUR ---
Pt. is sitting on the edje of the bed eating lunch at this time, will monitor closely for the need for assistance.
--- NOTE | 2022-03-31 13:21 | NUR ---
Pt. very restlessly ambulating around the unit going into the rooms of others requiring redirection. She was then sitting in her room crying in an anxious manner, ANGELICA Mandujano was adminstered and will continue to monitor. Addendum: 03/31/22 at 1323 by WILY Pt. was also helped back to bed requiring the assistance of two staff members
--- NOTE | 2022-03-31 14:32 | NUR ---
Pt. is sitting up in bed at this time eating a snack, she continues to ambulate with use of FWW intermittently. Fall precautions are in place.
--- NOTE | 2022-03-31 15:16 | NUR ---
Pt. took off all of her clothes and was standing naked by her bed, staff assisted her to put her clothing back on. She is now ambulating with her walker.
[2022-03-31] MEDS: quetiapine fumarate ER 300mg tablet PO SCH (16:20)
[2022-03-31] MEDS: ibuprofen 200mg tablet PO PRN (16:20)
--- NOTE | 2022-03-31 16:39 | NUR ---
Pt. ambulating around the unit at this time with use of FWW requires redirction at intervals (goes into rooms of others or will attempt to go out exits).
--- NOTE | 2022-03-31 17:28 | NUR ---
Pt. attempted to elope out front cutain and began yelling "Let me go!" She refused to walk back to her own room with the use of her FWW and required physical assistance from two staff members. Pt. is in her bed at this time, will continue to monitor.
--- NOTE | 2022-03-31 18:00 | NUR ---
Pt. up pacing the unit restlessly using FWW, she again attempted to elope out the front curtain, however was able to be assisted back to her room by staff. Pt. was reluctantly cooperative with sitting on bed so her V/S could be obtained. Wound care was completed and dressing changed on her left cheek by this freelance writer. Pt. is argumentative and raises her voice at intervals, but she is able to be redirected. Will continue to monitor closely and endorse to Noc shift.
[2022-03-31] MEDS ORDERED: haloperidol lactate 5mg/ml inj IM STA (18:51)
[2022-03-31] MEDS ORDERED: LORazepam 2 mg/ml vial IM STA (18:51)
--- NOTE | 2022-03-31 18:57 | NUR ---
Pt is out of control. Dr Dia notified, orders placed. Bed pushed up against the wall, she keeps kicking the side cushions out. So another bed placed up against the bed and security with the patient. Meds being drawn up. The patient hits and scratches and pinches.
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
--- NOTE | 2022-03-31 19:45 | NUR ---
I agree with Florence Chapman asessment.
[2022-03-31] MEDS: fluvoxamine 25 MG tablet PO SCH (21:00)
[2022-03-31] MEDS: traZODone 50mg tablet PO PRN (21:58)
[2022-03-31] MEDS: lamoTRIgine 100mg tablet PO SCH (21:59)
[2022-03-31] MEDS: polyethylene glycol 3350 17gm powd pack PO SCH (21:59)
[2022-03-31] MEDS: divalproex sod 250mg ER (24-hour) tablet PO SCH (22:01)
[2022-03-31] MEDS: montelukast 10mg tablet PO SCH (22:01)
[2022-03-31] MEDS: docusate sod 250mg capsule PO SCH (22:01)
--- NOTE | 2022-03-31 22:11 | NUR ---
PT IS STILL AGITATED, AND KEEPS ATTEMPTING TO GET UP OUT OF BED. SHE IS ADAMENT THAT IT IS DAY TIME, AND THAT SHE SHOULD BE ALLOWED TO GO OUTSIDE SMOKE, AND DRINK COFFEE. WHEN I ATTEMPTED TO REORIENTING PT, PT SCREAMED "I DON'T THINK YOU CAN TELL TIME! ITS OBVIOUSLY DAYTIME." ANOTHER ATTEMPT AT REORIENTING THE PT, AND RESULTS DO NOT APPEAR EFFECTIVE. WILL CONTINUE TO MONITOR PT BEHAVIOR.
--- NOTE | 2022-03-31 23:07 | NUR ---
PT IS STILL IN RESTRAINTS DUE TO HER BEHAVIOR. SHE IS UNABLE TO BE REDIRECTED. WILL CONTINUE TO PROVIDED THERAPEUTIC MEASURES.
--- NOTE | 2022-03-31 23:45 | NUR ---
PT WAS CLEANED OF INCONTENT EPISODE. NYSTATIN POWDER WAS APPLIED TO THE PANIS AREA, AND CALAMINE LOTION WAS APPLIED TO THE PT'S REAR-END. WOUND WAS CLEANED AND RE-DRESSED PER WOUND CARE'S INSTRUCTIONS. RESTRAINTS WERE REMOVED FROM PT'S WRISTS, AND SHE WAS EXAMINED. NO DAMAGE TO THE PT SKIN WAS NOTED, AND RESPIRATIONS WERE EVEN AND UNLABORED. WILL CONTINUE TO MONITOR PT BEHAVIOR.
--- NOTE | 2022-04-01 05:54 | NUR ---
Pt is awake. Bandadge was removed due to it being mostly off her face.
[2022-04-01] MEDS: multivitamins, therapeutics tablet PO SCH (06:56)
[2022-04-01] MEDS: ferrous sulfate 325mg tablet PO SCH ×2 (06:56→20:08)
[2022-04-01] MEDS: ascorbic acid 500mg tablet PO SCH ×2 (06:56→20:20)
[2022-04-01] MEDS: atorvastatin 10mg tablet PO SCH (06:57)
[2022-04-01] MEDS: sennosides 8.6mg tablet PO SCH ×2 (06:57→20:08)
[2022-04-01] MEDS: benztropine 1mg tablet PO SCH ×2 (06:57→20:08)
[2022-04-01] MEDS: LORazepam 1 MG tablet PO PRN (06:57)
[2022-04-01] MEDS: vortioxetine HBr tablet 5 MG TABLET PO SCH ×2 (06:57→20:08)
[2022-04-01] MEDS: lactobacillus rhamnosus 10,000 MMU CELLS/CAPSULE PO SCH (06:57)
[2022-04-01] MEDS: nystatin 15 GM powder TP SCH ×2 (07:00→20:09)
[2022-04-01] MEDS: quetiapine 100mg tablet PO SCH (07:36)
--- NOTE | 2022-04-01 07:36 | NUR ---
PT WAS INCONT OF URINE, PT SKIN CLEANSED AND LINEN CHANGED AND PT REPOSITIONED. PT NOW SITTING UP RIGHT AND DRINKING CUP OF COFFEE.
[2022-04-01] MEDS: nicotine 7mg patch - 24hr TD SCH (07:54)
[2022-04-01] MEDS: JUVEN Shake w/Arg/Glut/Ca2+Bmb (Juven 19.3gm) pkt 240ml PO SCH ×3 (08:00→18:30)
--- NOTE | 2022-04-01 08:00 | NUR ---
REPORT RECEIVED FROM TANYA CHILDERS. PT SITTING UPRIGHT IN BED DRINKING HER COFFEE. NO S/S OF ACUTE DISTRESS. BED LOCKED AND LOW, PT IN LINE OF SIGHT.
--- NOTE | 2022-04-01 08:15 | NUR ---
PT ATTEMPTING TO GET OUT OF BED. PT REDIRECTED AND REPOSITIONED.
--- NOTE | 2022-04-01 08:20 | NUR ---
PT WAS GIVEN NICOTINE PATCH PER REQUEST. PT YELLING OUT FOR FOOD. EXPLAINED TO HER BREAKFAST IS COMING SOON AND WILL BE PROVIDED ON ARRIVAL.
--- NOTE | 2022-04-01 08:39 | NUR ---
PT SITTING UPRIGHT EATING BREAKFAST.
--- NOTE | 2022-04-01 11:50 | NUR ---
PT UP WALKING WITH HER WALKER. PT MAKING MULTIPLE REQUESTS. WANTING TO CHANGE ROOMS. REQUESTING AN "ELECTRIC WHEELCHAIR", WANTS "MONEY FROM HER BOOKS", REQUESTING A NECK BRACE. PT CONT TO BE REORIENTED AND DIRECTED TO HER ROOM.
[2022-04-01] MEDS: quetiapine fumarate ER 300mg tablet PO SCH (16:00)
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
[2022-04-01] MEDS ORDERED: haloperidol lactate 5mg/ml inj IM ONE (18:20)
[2022-04-01] MEDS ORDERED: LORazepam 2 mg/ml vial IM ONE ×2 (18:20→21:15)
[2022-04-01] MEDS: docusate sod 250mg capsule PO SCH (20:07)
[2022-04-01] MEDS: lamoTRIgine 100mg tablet PO SCH (20:08)
[2022-04-01] MEDS: divalproex sod 250mg ER (24-hour) tablet PO SCH (20:08)
[2022-04-01] MEDS: polyethylene glycol 3350 17gm powd pack PO SCH (20:38)
[2022-04-01] MEDS: fluvoxamine 25 MG tablet PO SCH (20:46)
[2022-04-01] MEDS: montelukast 10mg tablet PO SCH (20:46)
[2022-04-01] MEDS ORDERED: diphenhydrAMINE 50 mg/ml inj IM ONE (21:15)
--- NOTE | 2022-04-02 06:30 | NUR ---
Patient repositioned in bed for comfort at this time. Staff at bedside for safety at all times.
[2022-04-02] MEDS: JUVEN Shake w/Arg/Glut/Ca2+Bmb (Juven 19.3gm) pkt 240ml PO SCH ×3 (08:00→18:16)
[2022-04-02] MEDS: nicotine 7mg patch - 24hr TD SCH (09:17)
[2022-04-02] MEDS: ascorbic acid 500mg tablet PO SCH ×2 (09:17→19:11)
[2022-04-02] MEDS: multivitamins, therapeutics tablet PO SCH (09:17)
[2022-04-02] MEDS: ferrous sulfate 325mg tablet PO SCH ×2 (09:17→19:11)
[2022-04-02] MEDS: atorvastatin 10mg tablet PO SCH (09:18)
[2022-04-02] MEDS: quetiapine 100mg tablet PO SCH (09:18)
[2022-04-02] MEDS: sennosides 8.6mg tablet PO SCH ×2 (09:18→19:11)
[2022-04-02] MEDS: benztropine 1mg tablet PO SCH ×2 (09:18→19:10)
[2022-04-02] MEDS: lactobacillus rhamnosus 10,000 MMU CELLS/CAPSULE PO SCH (09:18)
[2022-04-02] MEDS: vortioxetine HBr tablet 5 MG TABLET PO SCH ×2 (09:18→19:10)
[2022-04-02] MEDS: nystatin 15 GM powder TP SCH ×2 (09:19→20:21)
[2022-04-02] MEDS: LORazepam 1 MG tablet PO PRN ×2 (09:37→19:11)
[2022-04-02] MEDS: quetiapine fumarate ER 300mg tablet PO SCH (16:03)
--- NOTE | 2022-04-02 16:11 | NUR ---
NEW DRESSING APPLIED TO LEFT FACIAL WOUND.
[2022-04-02] MEDS ORDERED: LORazepam 2 mg/ml vial IM ONE (19:05)
[2022-04-02] MEDS ORDERED: diphenhydrAMINE 50 mg/ml inj IM ONE ×2 (19:05→20:23)
[2022-04-02] MEDS ORDERED: haloperidol lactate 5mg/ml inj IM ONE ×2 (19:05→20:23)
[2022-04-02] MEDS: fluvoxamine 25 MG tablet PO SCH (20:53)
[2022-04-02] MEDS: divalproex sod 250mg ER (24-hour) tablet PO SCH (20:53)
[2022-04-02] MEDS: montelukast 10mg tablet PO SCH (20:54)
[2022-04-02] MEDS: lamoTRIgine 100mg tablet PO SCH (20:54)
[2022-04-02] MEDS: docusate sod 250mg capsule PO SCH (20:54)
[2022-04-02] MEDS: polyethylene glycol 3350 17gm powd pack PO SCH (21:00)
--- NOTE | 2022-04-02 21:08 | NUR ---
Patient agitated, yelling, and refusing to cooperate with personal care. Scheduled medications and 2 mg ativan administered in [place]. Patient continued to be combative and uncooperative. Efforts to descalate ineffective. Benadryl 50 mg IM and Haldol 5 mg IM administered as ordered.
--- NOTE | 2022-04-02 21:16 | NUR ---
Patient General assessment reviewed
--- NOTE | 2022-04-03 03:15 | NUR ---
ASSUMED CARE FROM PASQUALE WILLIAM.
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
--- NOTE | 2022-04-03 07:10 | NUR ---
RN gave patient coffee. Patient was yelling out for coffee. Continue to monitor. Sitter at side.
--- NOTE | 2022-04-03 08:15 | NUR ---
Patient eating breakfast. No distress observed. Continue to monitor.
[2022-04-03] MEDS: quetiapine 100mg tablet PO SCH (08:55)
[2022-04-03] MEDS: atorvastatin 10mg tablet PO SCH (08:55)
[2022-04-03] MEDS: multivitamins, therapeutics tablet PO SCH (08:55)
[2022-04-03] MEDS: lactobacillus rhamnosus 10,000 MMU CELLS/CAPSULE PO SCH (08:55)
[2022-04-03] MEDS: benztropine 1mg tablet PO SCH ×2 (08:55→19:47)
[2022-04-03] MEDS: vortioxetine HBr tablet 5 MG TABLET PO SCH ×2 (08:55→19:48)
[2022-04-03] MEDS: sennosides 8.6mg tablet PO SCH ×2 (08:55→19:48)
[2022-04-03] MEDS: ascorbic acid 500mg tablet PO SCH ×2 (08:55→19:52)
[2022-04-03] MEDS: JUVEN Shake w/Arg/Glut/Ca2+Bmb (Juven 19.3gm) pkt 240ml PO SCH ×3 (08:55→17:56)
[2022-04-03] MEDS: ferrous sulfate 325mg tablet PO SCH ×2 (08:55→19:48)
[2022-04-03] MEDS: nicotine 7mg patch - 24hr TD SCH (08:56)
[2022-04-03] MEDS: nystatin 15 GM powder TP SCH ×2 (08:56→19:48)
--- NOTE | 2022-04-03 09:03 | NUR ---
Patient fussing and is not sitting in her chair. Continue to monitor. Addendum: 04/03/22 at 1225 by HEATHER "Now sitting in chair."
--- NOTE | 2022-04-03 10:37 | NUR ---
Patient yelling at her sitter. Patient insists on doing things her way. Continue to monitor.
--- NOTE | 2022-04-03 12:11 | NUR ---
Patient screaming for a wheelchair as patient is sitting in her recliner. RN advised patient she does not need a w/c. Tech brought T.V. for patient to watch as she was complaining about needing to watch T.V. Patient's head hangs down but patient would not let RN recline her chair so she can actually watch the T.V. Continue to monitor.
--- NOTE | 2022-04-03 12:32 | NUR ---
Patietn is feeding herself. Sitter at side. Continue to monitor.
--- NOTE | 2022-04-03 12:56 | NUR ---
Patient walking around the nurses station with her walker. Sitter at side. No assistance needed. Continue to monitor.
--- NOTE | 2022-04-03 13:48 | NUR ---
Patient is walking around with her walker. No distress observed. Continue to monitor.
[2022-04-03] MEDS: LORazepam 1 MG tablet PO PRN ×2 (14:03→19:50)
[2022-04-03] MEDS: ibuprofen 200mg tablet PO PRN (14:03)
--- NOTE | 2022-04-03 15:10 | NUR ---
Patient being very defiant. Attempting to walk into places patient was told not to go, eg. other patient's rooms. Patient's gait is very steady with a walker. Patient screaming when redirected. Patient is disrupting the atmosphere of this psychiatric area. Continue to monitor.
[2022-04-03] MEDS ORDERED: haloperidol lactate 5mg/ml inj ONE (16:16)
[2022-04-03] MEDS ORDERED: diphenhydrAMINE 50 mg/ml inj ONE (16:16)
[2022-04-03] MEDS ORDERED: LORazepam 2 mg/ml vial ONE (16:17)
--- NOTE | 2022-04-03 16:22 | NUR ---
Pt was trying to go into other patient areas, aide tried to redirect pt to her own area and pt became combative. Pt started hitting aide as she was assisting her into her bed. Aides tried to keep pt safe from self harm by applying bolsters to side rails, during this time pt was kicking and hitting LN and aides. Pt also grabbed aide and dug her fingernails into aides arm. Pt was cussing at staff and calling them names. Aides offered pt coffee and water when she asked then she would call them sluts and say I'm not drinking that. LN asked RN for assistance and RN consulted MD for further orders.
[2022-04-03] MEDS: quetiapine fumarate ER 300mg tablet PO SCH (17:30)
[2022-04-03] MEDS: docusate sod 250mg capsule PO SCH (21:00)
[2022-04-03] MEDS: polyethylene glycol 3350 17gm powd pack PO SCH (21:00)
[2022-04-03] MEDS: divalproex sod 250mg ER (24-hour) tablet PO SCH (21:15)
[2022-04-03] MEDS: montelukast 10mg tablet PO SCH (21:16)
[2022-04-03] MEDS: fluvoxamine 25 MG tablet PO SCH (21:16)
[2022-04-03] MEDS: lamoTRIgine 100mg tablet PO SCH (21:16)
--- NOTE | 2022-04-03 21:23 | NUR ---
GENERAL ASSESSMENT REVIEWED
--- NOTE | 2022-04-04 06:20 | NUR ---
Patient sleeping supine. No distress observed. Continue to monitor.
[2022-04-04] MEDS: JUVEN Shake w/Arg/Glut/Ca2+Bmb (Juven 19.3gm) pkt 240ml PO SCH ×3 (08:00→18:19)
[2022-04-04] MEDS: nystatin 15 GM powder TP SCH ×2 (08:00→20:16)
--- NOTE | 2022-04-04 08:23 | NUR ---
Patient being fed by Tech. Patient is fussing a little. Continue to monitor.
[2022-04-04] MEDS: atorvastatin 10mg tablet PO SCH (09:09)
[2022-04-04] MEDS: sennosides 8.6mg tablet PO SCH ×2 (09:10→20:15)
[2022-04-04] MEDS: multivitamins, therapeutics tablet PO SCH (09:10)
[2022-04-04] MEDS: ferrous sulfate 325mg tablet PO SCH ×2 (09:10→20:15)
[2022-04-04] MEDS: lactobacillus rhamnosus 10,000 MMU CELLS/CAPSULE PO SCH (09:10)
[2022-04-04] MEDS: nicotine 7mg patch - 24hr TD SCH (09:10)
[2022-04-04] MEDS: ascorbic acid 500mg tablet PO SCH ×2 (09:11→20:00)
[2022-04-04] MEDS: benztropine 1mg tablet PO SCH ×2 (09:11→20:15)
[2022-04-04] MEDS: quetiapine 100mg tablet PO SCH (09:11)
[2022-04-04] MEDS: bisacodyl 10mg suppository rectal RC PRN (09:11)
[2022-04-04] MEDS: LORazepam 1 MG tablet PO PRN ×2 (09:11→19:18)
[2022-04-04] MEDS: vortioxetine HBr tablet 5 MG TABLET PO SCH ×2 (09:11→20:16)
--- NOTE | 2022-04-04 09:20 | NUR ---
RN was giving patient her meds with her cream of wheat. Patient states "I'm not taking my meds unless I can get up." RN advised patient that patient would be able to get up after her meds are taken. Patient then took all her meds with her cream of wheat. Patient was calm after the meds but was fussing for 30 minutes straight prior to medication. Continue to monitor.
--- NOTE | 2022-04-04 09:25 | NUR ---
Physical Therapy is getting patient out of bed to walk. RN advised P.T. that patient walked a lot of the day yesterday and did really well with her walker. Tech other sports official at side with minimal assistance. P.T. happy that patient walked yesterday. Continue to monitor.
--- NOTE | 2022-04-04 11:11 | NUR ---
Patient moving around but has been much quieter today. Sitter at side. Continue to monitor.
--- NOTE | 2022-04-04 12:27 | NUR ---
Patient being fed lunch. No distress observed. Continue to monitor.
--- NOTE | 2022-04-04 14:02 | NUR ---
Patient attempting to get out of bed. Sitter at side. Continue to monitor.
--- NOTE | 2022-04-04 16:20 | NUR ---
RN attempted to walk patient but patient said she doesn't want to walk and wants a w/c. RN took patient around the ground floor in w/c and looked outside. Patient was content during the excursion. Calm and cooperative. Continue to monitor.
[2022-04-04] MEDS: quetiapine fumarate ER 300mg tablet PO SCH (16:58)
--- NOTE | 2022-04-04 17:50 | NUR ---
Patient screaming for her food. RN and Tech explains that the food has not arrived yet. Patient doesn't believe staff. Continue to monitor.
[2022-04-04] MEDS: docusate sod 250mg capsule PO SCH (21:00)
[2022-04-04] MEDS: polyethylene glycol 3350 17gm powd pack PO SCH (21:00)
[2022-04-04] MEDS: divalproex sod 250mg ER (24-hour) tablet PO SCH (21:08)
[2022-04-04] MEDS: fluvoxamine 25 MG tablet PO SCH (21:09)
[2022-04-04] MEDS: montelukast 10mg tablet PO SCH (21:09)
[2022-04-04] MEDS: lamoTRIgine 100mg tablet PO SCH (21:09)
--- NOTE | 2022-04-04 22:21 | NUR ---
GENERAL ASSESSMENT REVIEWED
--- NOTE | 2022-04-05 06:37 | NUR ---
Patient awake and moving around in bed. Patient is quiet at this time. Tech gave patient some coffee. Continue to monitor.
[2022-04-05] MEDS: ferrous sulfate 325mg tablet PO SCH ×2 (08:00→20:37)
[2022-04-05] MEDS: JUVEN Shake w/Arg/Glut/Ca2+Bmb (Juven 19.3gm) pkt 240ml PO SCH ×3 (08:07→17:57)
[2022-04-05] MEDS: multivitamins, therapeutics tablet PO SCH (08:11)
[2022-04-05] MEDS: atorvastatin 10mg tablet PO SCH (08:11)
[2022-04-05] MEDS: sennosides 8.6mg tablet PO SCH ×2 (08:11→20:35)
[2022-04-05] MEDS: ascorbic acid 500mg tablet PO SCH ×2 (08:11→20:00)
[2022-04-05] MEDS: vortioxetine HBr tablet 5 MG TABLET PO SCH ×2 (08:11→20:00)
[2022-04-05] MEDS: nicotine 7mg patch - 24hr TD SCH (08:11)
[2022-04-05] MEDS: quetiapine 100mg tablet PO SCH (08:12)
[2022-04-05] MEDS: benztropine 1mg tablet PO SCH ×2 (08:12→20:35)
[2022-04-05] MEDS: lactobacillus rhamnosus 10,000 MMU CELLS/CAPSULE PO SCH (08:13)
[2022-04-05] MEDS: nystatin 15 GM powder TP SCH ×2 (08:15→20:34)
--- NOTE | 2022-04-05 08:36 | NUR ---
Agree with WOC assessment and documentation on 04/04/22
--- NOTE | 2022-04-05 09:29 | NUR ---
helped move pt in bed. pt said she needed a bm. pt up to toilet with walker, large bm, then washed hands, walker to chair, brushed and braided her hair.
--- NOTE | 2022-04-05 09:56 | NUR ---
Patient sitting in w/c next to RN. Patient able to move w/c next the area where RN is sitting. Patient is content and will roll up to RN and ask a question. No distress observed. Continue to monitor.
--- NOTE | 2022-04-05 11:45 | NUR ---
Patient has been in her w/c, happy as a lark, moving around the common areas. No distress observed.
--- NOTE | 2022-04-05 11:53 | NUR ---
Patient has been roaming around the [place] area in her w/c. Patient is content to move and look around. Patient has been quiet, talking about her son Gene. No distress observed today. Continue to monitor.
--- NOTE | 2022-04-05 13:10 | NUR ---
Patient eating her lunch, being fed by Mel. No distress observed. Continue to monitor.
--- NOTE | 2022-04-05 14:20 | NUR ---
Patient advised RN that she needed to "Pee". RN took patient in w/c to BR. Patient stood up, turned around and sat herself on the toilet and urinated. Patient's diaper was dry. Continue to monitor.
[2022-04-05] MEDS: ibuprofen 200mg tablet PO PRN (14:30)
--- NOTE | 2022-04-05 15:09 | NUR ---
Patient still in the w/c moving about the unit. No distress observed. Continue to monitor.
[2022-04-05] MEDS: quetiapine fumarate ER 300mg tablet PO SCH (16:01)
[2022-04-05] MEDS: LORazepam 1 MG tablet PO PRN ×2 (16:02→20:37)
--- NOTE | 2022-04-05 16:12 | NUR ---
Earlier patient advised RN that her legs were tired. RN and tech placed patient in the recliner right next to the nurse's station. Patient kept trying to stand up. Tech and RN placed patient in bed where she was attempting to hit the tech. Patient is now refusing her Seroquel and RN added her PRN lorazepam dose. Patient wants to call her father and her son. RN called the father for the patient but it went to voice mail. RN left a message that Rosa wants to talk to her dad and her son Gene. Patient is attempting to get out of bed. Continue to monitor.
--- NOTE | 2022-04-05 19:30 | NUR ---
I AGREE WITH A CHELSEA ONOFRE ASSESSMENT.
--- NOTE | 2022-04-05 19:45 | NUR ---
PT IS WITH HER SITTER. THEY ARE WATCHING A MOVIE, WHILE THE PT IS IN HER WHEELCHAIR. PT KEEPS TRYING TO WANDER AWAY, STAFF AT BEDSIDE IS ABLE TO REDIRECT PT AT THIS TIME.
--- NOTE | 2022-04-05 19:45 | NUR ---
FOUND A NOTES THAT LISTED THIS ZOHRA'S FATHER NUMBER: [phone]
[2022-04-05] MEDS: lamoTRIgine 100mg tablet PO SCH (20:33)
[2022-04-05] MEDS: docusate sod 250mg capsule PO SCH (20:34)
[2022-04-05] MEDS: montelukast 10mg tablet PO SCH (20:34)
[2022-04-05] MEDS: divalproex sod 250mg ER (24-hour) tablet PO SCH (20:35)
[2022-04-05] MEDS: acetaminophen 325mg tablet PO PRN (20:36)
[2022-04-05] MEDS: polyethylene glycol 3350 17gm powd pack PO SCH (20:37)
[2022-04-05] MEDS: fluvoxamine 25 MG tablet PO SCH (21:00)
--- NOTE | 2022-04-05 21:07 | NUR ---
non-admin: trintellix, vitamin-C, and fluvoxamine were not administered due to insufficient medications in the [facility]. Called pharmacy and pharmacy unable to provide medications at this time.
--- NOTE | 2022-04-05 21:11 | NUR ---
PT WAS PLACED IN RECLINER TO REST.
[2022-04-06] MEDS: atorvastatin 10mg tablet PO SCH (08:22)
[2022-04-06] MEDS: quetiapine 100mg tablet PO SCH (08:22)
[2022-04-06] MEDS: sennosides 8.6mg tablet PO SCH ×2 (08:23→20:05)
[2022-04-06] MEDS: vortioxetine HBr tablet 5 MG TABLET PO SCH ×2 (08:23→20:05)
[2022-04-06] MEDS: ferrous sulfate 325mg tablet PO SCH ×2 (08:23→20:06)
[2022-04-06] MEDS: nicotine 7mg patch - 24hr TD SCH (08:23)
[2022-04-06] MEDS: benztropine 1mg tablet PO SCH ×2 (08:23→20:05)
[2022-04-06] MEDS: JUVEN Shake w/Arg/Glut/Ca2+Bmb (Juven 19.3gm) pkt 240ml PO SCH ×3 (08:24→18:10)
[2022-04-06] MEDS: multivitamins, therapeutics tablet PO SCH (08:24)
[2022-04-06] MEDS: nystatin 15 GM powder TP SCH ×2 (08:24→20:11)
[2022-04-06] MEDS: lactobacillus rhamnosus 10,000 MMU CELLS/CAPSULE PO SCH (08:24)
[2022-04-06] MEDS: ascorbic acid 500mg tablet PO SCH ×2 (08:24→20:11)
[2022-04-06] MEDS: ibuprofen 200mg tablet PO PRN (13:31)
--- NOTE | 2022-04-06 13:31 | NUR ---
Pt requesting pain meds. Motrin given.
[2022-04-06] MEDS: quetiapine fumarate ER 300mg tablet PO SCH (17:55)
--- NOTE | 2022-04-06 18:03 | NUR ---
pt requested tech call mom, tech could not find mom's number, tech found dad's number instead and called him. Father did not answer, tech did not leave a message.
[2022-04-06] MEDS: montelukast 10mg tablet PO SCH (20:03)
[2022-04-06] MEDS: fluvoxamine 25 MG tablet PO SCH (20:04)
[2022-04-06] MEDS: lamoTRIgine 100mg tablet PO SCH (20:04)
[2022-04-06] MEDS: LORazepam 1 MG tablet PO PRN (20:05)
[2022-04-06] MEDS: divalproex sod 250mg ER (24-hour) tablet PO SCH (20:05)
[2022-04-06] MEDS: docusate sod 250mg capsule PO SCH (20:05)
[2022-04-06] MEDS: polyethylene glycol 3350 17gm powd pack PO SCH (20:06)
--- NOTE | 2022-04-06 20:42 | NUR ---
2030 pt awaken and given night time medication, oral care done, face cleaned at this devora
--- NOTE | 2022-04-06 23:02 | NUR ---
breaking primary rn for lunch patient is lying in bed supine with covers on eyes closed rr even un labored no observable s/s of acute stress at this time
--- NOTE | 2022-04-07 06:53 | NUR ---
Pt ambulating around the unit with FWW. Pt's gait is steady with walker. Pt came to marine underwriter asking for pain medication for her back. Pt talking about a hitman. Sole Tier reassured patient she was safe. Addendum: 04/07/22 at 0657 by LYNDA Pt walks with her head contracted down. Pt encouraged to lift head while walking.
[2022-04-07] MEDS: ibuprofen 200mg tablet PO PRN (07:07)
--- NOTE | 2022-04-07 07:39 | NUR ---
Pt toodling around the unit in her wheelchair. Pt calm/cooperative.
[2022-04-07] MEDS: nystatin 15 GM powder TP SCH ×2 (08:00→19:43)
--- NOTE | 2022-04-07 08:01 | NUR ---
Pt at nurses station, sitting in her wheelchair talking about "Gene." "Gene needs some coffee." " "This is mine (and looks down at her cup), but he needs some." "He hasn't been eating." Assistant Wrestling Coach attempted to reorient pt to reality. Pt looked at mortgage or loan underwriter then wheeled back towards her room.
--- NOTE | 2022-04-07 08:10 | NUR ---
Pt continues to escalate, believing her son "Gene" is under her bed. Pt is difficult to redirect.
[2022-04-07] MEDS: JUVEN Shake w/Arg/Glut/Ca2+Bmb (Juven 19.3gm) pkt 240ml PO SCH ×3 (08:31→18:06)
[2022-04-07] MEDS: quetiapine 100mg tablet PO SCH (08:39)
[2022-04-07] MEDS: lactobacillus rhamnosus 10,000 MMU CELLS/CAPSULE PO SCH (08:39)
[2022-04-07] MEDS: ferrous sulfate 325mg tablet PO SCH ×2 (08:40→19:39)
[2022-04-07] MEDS: atorvastatin 10mg tablet PO SCH (08:40)
[2022-04-07] MEDS: vortioxetine HBr tablet 5 MG TABLET PO SCH ×2 (08:40→19:41)
[2022-04-07] MEDS: sennosides 8.6mg tablet PO SCH ×2 (08:40→19:41)
[2022-04-07] MEDS: multivitamins, therapeutics tablet PO SCH (08:40)
[2022-04-07] MEDS: ascorbic acid 500mg tablet PO SCH ×2 (08:40→19:45)
[2022-04-07] MEDS: benztropine 1mg tablet PO SCH ×2 (08:40→19:40)
[2022-04-07] MEDS: LORazepam 1 MG tablet PO PRN ×2 (08:40→22:07)
[2022-04-07] MEDS: nicotine 7mg patch - 24hr TD SCH (08:41)
--- NOTE | 2022-04-07 09:00 | NUR ---
Pt is tearful raising her voice. Pt administered PRN Ativan with morning medication. Pt was compliant meds, which were given to her with her cream of wheat. Pt at first required commercial lines underwriter to feed her, r/t her crying and saying "they are call me a liar." Pt felt since staff was telling her her son was not under her bed they didn't believe her. Pt calmed and finished breakfast on her own.
--- NOTE | 2022-04-07 09:30 | NUR ---
PRN Ativan effective. Pt changes from FWW to WC and moves throughout unit without issue.
--- NOTE | 2022-04-07 11:30 | NUR ---
Pt in WC moving around unit. Pt's head is contracted forward. Pt is encouraged to lift head up so she can see where she is going. Pt has a difficult time with this movement. Jewelry Bearing Maker applied some light massage to assist with pt flexion.
--- NOTE | 2022-04-07 13:30 | NUR ---
Pt up ambulating with walker, pt was encouraged to lie down and take a nap as she looks fatigued. Pt declined.
--- NOTE | 2022-04-07 16:10 | NUR ---
Assisted pt to bathroom where pull up was changed and pt cleaned up. Mild BM noted. Pt was dry. Nystatin powder applied to pannus and ja-area. Some mild erythema noted on buttocks, barrier cream applied. Gown changed.
[2022-04-07] MEDS: quetiapine fumarate ER 300mg tablet PO SCH (16:15)
--- NOTE | 2022-04-07 17:00 | NUR ---
Wound care completed per orders at bedside. Pt tolerated well. Hair brushed and braided.
--- NOTE | 2022-04-07 17:30 | NUR ---
Attempting to get pt to drink more fluids. Obtained a grape flavor packet, pt seems to like it. Pt is sleepy, but still refuses to get into bed or take a nap.
--- NOTE | 2022-04-07 18:38 | NUR ---
rec'd report from catalino Manzano sitting in tech assisting with dinner. no distress noted.
[2022-04-07] MEDS: fluvoxamine 25 MG tablet PO SCH (19:40)
[2022-04-07] MEDS: docusate sod 250mg capsule PO SCH (19:40)
[2022-04-07] MEDS: lamoTRIgine 100mg tablet PO SCH (19:40)
[2022-04-07] MEDS: polyethylene glycol 3350 17gm powd pack PO SCH (19:41)
[2022-04-07] MEDS: divalproex sod 250mg ER (24-hour) tablet PO SCH (19:41)
[2022-04-07] MEDS: montelukast 10mg tablet PO SCH (19:41)
--- NOTE | 2022-04-07 20:32 | NUR ---
HS meds adminstered, pt in bed resting, no distressed noted
--- NOTE | 2022-04-07 22:29 | NUR ---
pt yelling and crawling out of bed, PRN Ativan 2mg adminsitered
[2022-04-07] MEDS ORDERED: LORazepam 1 MG tablet PO ONE (23:15)
--- NOTE | 2022-04-07 23:30 | NUR ---
pt continues to climb out of bed kicking and yelling at staff. Ativan 2mg given per Dr. Ortiz's order.
--- NOTE | 2022-04-08 01:39 | NUR ---
pt sleeping, chest rise and fall noted
--- NOTE | 2022-04-08 02:33 | NUR ---
pt sleeping with chest rise and fall, no distress noted
--- NOTE | 2022-04-08 04:21 | NUR ---
pt sleeping with chest rise and fall, no distress noted
--- NOTE | 2022-04-08 05:39 | NUR ---
pt out of bed and sitting in her WC
[2022-04-08] MEDS: JUVEN Shake w/Arg/Glut/Ca2+Bmb (Juven 19.3gm) pkt 240ml PO SCH ×3 (08:00→18:00)
[2022-04-08] MEDS: ferrous sulfate 325mg tablet PO SCH ×2 (09:29→20:14)
[2022-04-08] MEDS: multivitamins, therapeutics tablet PO SCH (09:29)
[2022-04-08] MEDS: lactobacillus rhamnosus 10,000 MMU CELLS/CAPSULE PO SCH (09:29)
[2022-04-08] MEDS: benztropine 1mg tablet PO SCH ×2 (09:30→20:13)
[2022-04-08] MEDS: sennosides 8.6mg tablet PO SCH ×2 (09:30→20:14)
[2022-04-08] MEDS: vortioxetine HBr tablet 5 MG TABLET PO SCH ×2 (09:30→20:51)
[2022-04-08] MEDS: ascorbic acid 500mg tablet PO SCH ×2 (09:30→20:51)
[2022-04-08] MEDS: quetiapine 100mg tablet PO SCH (09:30)
[2022-04-08] MEDS: atorvastatin 10mg tablet PO SCH (09:30)
[2022-04-08] MEDS: nystatin 15 GM powder TP SCH ×2 (09:31→20:14)
[2022-04-08] MEDS: nicotine 7mg patch - 24hr TD SCH (09:31)
--- NOTE | 2022-04-08 10:00 | NUR ---
Pt continues to be restless, ambulating with . Pt presents wtih chin on chest and has a difficult time raising head. Pt continues to decline lying down in bed, even though she is sleepy. Pt required redirection as she wanted to enter another pt's area. Pt was slightly irriated when asked to turn around "I want to go that way." "Get outta my way." Pt was redircted over to next bed where she walked to the wall then turned around a came back to common area. Pt then went towards exit "I am going out." "I am going that way." PCT/EMT. "I want a cigarette!!" Pt calmed for a short while to where PCT/EMT was able to take pt outside for a short walk (pt is not on a MH hold.) Pt wrapped in a blanket. Behavior appropriate.
--- NOTE | 2022-04-08 11:00 | NUR ---
Pt was calm for awhile, but then began ambulating unit with FWW looking for an exit. "I want a cigarette!" PCT/EMT and keno writer/runner at side attempting to redirect patient. Pt was redirected and continued to walk unit.
[2022-04-08] MEDS: LORazepam 1 MG tablet PO PRN (11:53)
--- NOTE | 2022-04-08 12:00 | NUR ---
Pt was administered PRN Ativan as she has been yelling "I want a cigarette!" "Let me out of here!" Pt was not redirctable. Ativan given with yogurt and assisted to her room. Pt continues to yell, but is hanging out by her bed.
--- NOTE | 2022-04-08 12:30 | NUR ---
Pt picked up lunch tray and began walking towards the back of unit. Staff at side, pt refused to give up lunch tray. Pt attempted to open a door in back of unit, then sat on bed and ate her lunch.
--- NOTE | 2022-04-08 14:31 | NUR ---
Pt sitting next to va underwriter at nurses station, pt has been calm since PRN Ativan administered. No yelling or outbursts. Pt is encouraged to lay down and sleep, but declines.
--- NOTE | 2022-04-08 16:30 | NUR ---
Pt continues to move around unit in WC and or FWW. Pt has refused to lay down and take a nap, even though she appears fatigued.
--- NOTE | 2022-04-08 17:00 | NUR ---
Pt pulled dressing and scab off her left cheek. Required direct pressur for approximately five minutes to stop bleeding. Assisted patient with resistance to her bed so wound could be cleaned and dressed. At this time pt was incontinent of urine. Finish Saw Operator and EMT assisted pt to bathroom where she was cleaned up. Clean gown and depends applied. Pt difficult to redirect.
[2022-04-08] MEDS: quetiapine fumarate ER 300mg tablet PO SCH (19:11)
[2022-04-08] MEDS: lamoTRIgine 100mg tablet PO SCH (20:12)
[2022-04-08] MEDS: polyethylene glycol 3350 17gm powd pack PO SCH (20:12)
[2022-04-08] MEDS: fluvoxamine 25 MG tablet PO SCH (20:12)
[2022-04-08] MEDS: divalproex sod 250mg ER (24-hour) tablet PO SCH (20:13)
[2022-04-08] MEDS: docusate sod 250mg capsule PO SCH (20:13)
[2022-04-08] MEDS: montelukast 10mg tablet PO SCH (20:13)
--- NOTE | 2022-04-08 22:31 | NUR ---
Pt sleeping at this time. Up walking on the unit for the first several hours of this shift. A few times she went to far or tried to come into the Nurses station but was easily redirected. Asked for a cigerette several times but she accepted the answer that we don't have any. Had to be removed from a vancant bed that was not hers, She took medications whole in applesause without any difficulty.
--- NOTE | 2022-04-09 01:09 | NUR ---
Pt remains asleep.
--- NOTE | 2022-04-09 01:47 | NUR ---
Pt ambulated to BR with FWW and Stand by assist continent urine. Ambulated independently to Nurses station asked for a cigarette. Accepted answer that we don't have any cigarettes. Ambulated independently on unit being monitored closely by staff. Pt returned to her bed lying down at this time.
--- NOTE | 2022-04-09 02:53 | NUR ---
Pt up on unit alternating between propelling self slowly around unit in w/c or ambulating with assist. Closely monitored by staff to prevent falls.
--- NOTE | 2022-04-09 04:50 | NUR ---
Pt up since 0145. Mutiple requests for coffee, Cigarettes or to go outside. Pt has been redirectable.
--- NOTE | 2022-04-09 06:25 | NUR ---
Patient restless and saying multiple profanity words at Angelita, [facility] or this senior technical writer when we attempt to keep her from going to the back area of the department and wanting to go into locked rooms. Patient appears agitated and restless. Patient sitting in w/c then immediately gets up and wants to walk with walker. Patient awake since 0145 this morning. Will continue to monitor closely.
[2022-04-09] MEDS: LORazepam 1 MG tablet PO PRN ×2 (07:01→19:56)
[2022-04-09] MEDS: multivitamins, therapeutics tablet PO SCH (07:05)
[2022-04-09] MEDS: ferrous sulfate 325mg tablet PO SCH ×2 (07:05→19:58)
[2022-04-09] MEDS: lactobacillus rhamnosus 10,000 MMU CELLS/CAPSULE PO SCH (07:05)
[2022-04-09] MEDS: benztropine 1mg tablet PO SCH (07:05)
[2022-04-09] MEDS: quetiapine 100mg tablet PO SCH (07:05)
[2022-04-09] MEDS: atorvastatin 10mg tablet PO SCH (07:05)
[2022-04-09] MEDS: sennosides 8.6mg tablet PO SCH ×2 (07:05→19:58)
--- NOTE | 2022-04-09 07:10 | NUR ---
Patient continues to be restless and agitated by calling names and shouting at times while other patients are resting. Patient given po medications at this time including Ativan as ordered on EMAR. Patient continues to attempt to go out the door in her w/c and is quickly diverted and then she is calling staff member names and yelling profanity as well as extremely restless and agitated. Will continue to observe closely. Refusing to go back to bed at this time.
[2022-04-09] MEDS: ascorbic acid 500mg tablet PO SCH ×2 (07:13→19:58)
[2022-04-09] MEDS: nicotine 7mg patch - 24hr TD SCH (07:14)
[2022-04-09] MEDS: JUVEN Shake w/Arg/Glut/Ca2+Bmb (Juven 19.3gm) pkt 240ml PO SCH ×3 (08:00→18:00)
[2022-04-09] MEDS: vortioxetine HBr tablet 5 MG TABLET PO SCH ×2 (08:18→19:57)
[2022-04-09] MEDS: nystatin 15 GM powder TP SCH ×2 (08:18→19:58)
--- NOTE | 2022-04-09 09:30 | NUR ---
Patient ate breakfast sitting in a w/c with a tray across her and was assisted by Angelita. Patient still yelling at times and is restless. Patient remains in her w/c and refuses to go to bed to lie down. Patient is reassured and then removed her dressing off of the basal cell carcinoma wound on her left cheek. Cleansed area with SNS and applied bandaids x2 on left cheek. Will continue to monitor.
--- NOTE | 2022-04-09 11:24 | NUR ---
Patient slept from 1000 to 1100 in her w/c as she is still refusing to lie down in her bed. Patient awake now and is pushed around the unit in her w/c for distraction at this time. Will continue to monitor her closely.
--- NOTE | 2022-04-09 13:00 | NUR ---
Patient ate lunch and then fell asleep in her wheelchair. Patient pulled the bandaid off of her left cheek. Small amount of sanguineous drainage noted on old dressing. Xeroform removed from wound left cheek using SNS. Placed Xeroform dressing over basal cell carcinoma left cheek. Covered with 4x4 and 2 adhesive bandaids. Patient tolerated well. Patient wheeling around the department and still refuses to go to bed to rest after being up since 0145 this morning.
--- NOTE | 2022-04-09 15:47 | NUR ---
Patient remains in w/c slowly wheeling around the department. Patient assisted to the toilet by KERON Goldstein, and then returned to the w/c. Patient comfortable at this time. Will continue to monitor.
[2022-04-09] MEDS: quetiapine fumarate ER 300mg tablet PO SCH (16:04)
--- NOTE | 2022-04-09 17:45 | NUR ---
Patient sat while KERON Goldstein, painted her nails. Patient consistently asking for a "cigarette." Informed that she is unable to smoke in the hospital. Patient forgetful. Patient wheeling herself around in her w/c with required assistance needed at times secondary to coming into the Nurse's Station. Will continue to monitor.
--- NOTE | 2022-04-09 18:22 | NUR ---
Pt is sitting in a chair at nurses station eating her dinner. Pt is feeding herself and occasionally lifting herself up from the chair exercising her arms.
[2022-04-09] MEDS: polyethylene glycol 3350 17gm powd pack PO SCH (20:00)
[2022-04-09] MEDS: montelukast 10mg tablet PO SCH (20:00)
[2022-04-09] MEDS: lamoTRIgine 100mg tablet PO SCH (20:00)
[2022-04-09] MEDS: docusate sod 250mg capsule PO SCH (20:00)
[2022-04-09] MEDS: divalproex sod 250mg ER (24-hour) tablet PO SCH (20:01)
[2022-04-09] MEDS: fluvoxamine 25 MG tablet PO SCH (20:01)
--- NOTE | 2022-04-09 20:26 | NUR ---
Pt had bed bath completed by pct, she is ambulating around the floor via fww. Pt took HS meds. Pct reports pt had only one void today. Pt was given water and fluids.
--- NOTE | 2022-04-10 02:11 | NUR ---
Pt is laying in bed with her knees up. pt appears to be sleeping rr 14
--- NOTE | 2022-04-10 03:28 | NUR ---
pt was attempting to climb out of bed and doesnt want to be in bed any longer. Pt was encouraged to try and get more rest. Pt ambulated briefly with fww and decided to sit in her wheelchair.
--- NOTE | 2022-04-10 05:28 | NUR ---
pt is wheeling her wheel chair in front of nurses station and requested assistance w her water. Pt does not want to go back to bed. Pt was given a warm blanket.
[2022-04-10] MEDS: ibuprofen 200mg tablet PO PRN (05:42)
--- NOTE | 2022-04-10 05:42 | NUR ---
Pt c/o back pain prn motrin given.
--- NOTE | 2022-04-10 06:30 | NUR ---
Pt awake sitting in her wheelchair next to the nurses station. Pt is wheeling herself around the unit. No distress noted.
[2022-04-10] MEDS: nystatin 15 GM powder TP SCH ×2 (08:00→20:29)
--- NOTE | 2022-04-10 08:00 | NUR ---
Pt offered prune juice for constipation. Pt. declined.
[2022-04-10] MEDS: atorvastatin 10mg tablet PO SCH (08:32)
[2022-04-10] MEDS: multivitamins, therapeutics tablet PO SCH (08:32)
[2022-04-10] MEDS: lactobacillus rhamnosus 10,000 MMU CELLS/CAPSULE PO SCH (08:32)
[2022-04-10] MEDS: ferrous sulfate 325mg tablet PO SCH ×2 (08:32→20:29)
[2022-04-10] MEDS: vortioxetine HBr tablet 5 MG TABLET PO SCH ×2 (08:32→20:29)
[2022-04-10] MEDS: sennosides 8.6mg tablet PO SCH ×2 (08:32→20:29)
[2022-04-10] MEDS: nicotine 7mg patch - 24hr TD SCH (08:33)
[2022-04-10] MEDS: ascorbic acid 500mg tablet PO SCH ×2 (08:33→20:29)
[2022-04-10] MEDS: JUVEN Shake w/Arg/Glut/Ca2+Bmb (Juven 19.3gm) pkt 240ml PO SCH ×3 (08:36→18:23)
--- NOTE | 2022-04-10 08:37 | NUR ---
Pt sitting in wheelchair eating her breakfast. Medications adminsitered and 1:1 completed with no issues. Pt is pleasant and cooperative.
--- NOTE | 2022-04-10 10:35 | NUR ---
Pt utilizing the restroom per request. She continues to be up in her wheelchair wheeling herself around the unit. No distress noted.
--- NOTE | 2022-04-10 12:28 | NUR ---
Pt seen attempting to walk, stating she is looking for "Gene and pills". Pt continuously having to be redirected and reminded to ask for assistance if she is going to walk the unit. Pt eating lunch in wheelchair next to nurses station at this time.
--- NOTE | 2022-04-10 14:01 | NUR ---
Pt. assisted to the restroom per pt request. Pt. voided.
--- NOTE | 2022-04-10 16:00 | NUR ---
pt continues to be up in her wheelchair. Pt refuses to lay down in her bed. She continues to wheel herself around unit. No distress noted.
[2022-04-10] MEDS: quetiapine fumarate ER 300mg tablet PO SCH (16:51)
--- NOTE | 2022-04-10 18:00 | NUR ---
Pt continues to be in her wheelchair wheeling herself around the unit. Pt has been pleasant this shift. No distress noted.
--- NOTE | 2022-04-10 18:24 | NUR ---
Patient up on the unit and in a wc which she has been maneuvering on her own. She does occassionally have to be redirected to stay on the unit which she accepts. She has periodically been up and walking with the front wheel walker with standby assistance. She currently is feeding herself
[2022-04-10] MEDS: lamoTRIgine 100mg tablet PO SCH (20:29)
[2022-04-10] MEDS: polyethylene glycol 3350 17gm powd pack PO SCH (20:29)
[2022-04-10] MEDS: montelukast 10mg tablet PO SCH (20:29)
[2022-04-10] MEDS: fluvoxamine 25 MG tablet PO SCH (20:29)
[2022-04-10] MEDS: docusate sod 250mg capsule PO SCH (20:29)
[2022-04-10] MEDS: divalproex sod 250mg ER (24-hour) tablet PO SCH (20:29)
--- NOTE | 2022-04-10 20:38 | NUR ---
The patient is up and wandering the unit. She is under close supervision of staff and is occassionally needed redirection from unit exits.
[2022-04-10] MEDS: LORazepam 1 MG tablet PO PRN (21:20)
--- NOTE | 2022-04-10 21:26 | NUR ---
Patient increasingly difficult to redirect. Ativan given.
--- NOTE | 2022-04-10 22:38 | NUR ---
The patient appears to be sleeping
--- NOTE | 2022-04-10 23:38 | NUR ---
The patient appears to be sleeping
--- NOTE | 2022-04-11 01:10 | NUR ---
The patient appears to be sleeping
--- NOTE | 2022-04-11 02:43 | NUR ---
The patient appears to be sleeping
--- NOTE | 2022-04-11 04:06 | NUR ---
The patient appears to be sleeping
--- NOTE | 2022-04-11 05:13 | NUR ---
The patient awake and ambulated to the bathroom. She was continent during the night. She is up walking about the unit using her walker.
--- NOTE | 2022-04-11 06:38 | NUR ---
Pt up pacing the halls using a FWW. She continues to request to smoke. Pt is given a nicotine patch daily.
--- NOTE | 2022-04-11 06:38 | NUR ---
Lj cuellar in ED - 04/11/22 at 1041 by AKBAR Pt up pacing the halls with her walker. She continues to ask for a cigarette. Nicotine patch applied x1 daily.
[2022-04-11] MEDS: JUVEN Shake w/Arg/Glut/Ca2+Bmb (Juven 19.3gm) pkt 240ml PO SCH ×3 (08:00→18:33)
[2022-04-11] MEDS: nystatin 15 GM powder TP SCH ×2 (08:00→20:20)
--- NOTE | 2022-04-11 08:00 | NUR ---
Pt eating. She ate most of her meal. See meal documentation. Pt continues to walk towards doors asking to "smoke." PT discharged pt from services. Pt is medication compliant. She is redirectable.
[2022-04-11] MEDS: lactobacillus rhamnosus 10,000 MMU CELLS/CAPSULE PO SCH (08:58)
[2022-04-11] MEDS: multivitamins, therapeutics tablet PO SCH (08:59)
[2022-04-11] MEDS: ferrous sulfate 325mg tablet PO SCH ×2 (08:59→20:19)
[2022-04-11] MEDS: atorvastatin 10mg tablet PO SCH (08:59)
[2022-04-11] MEDS: vortioxetine HBr tablet 5 MG TABLET PO SCH ×2 (08:59→20:20)
[2022-04-11] MEDS: sennosides 8.6mg tablet PO SCH ×2 (08:59→20:19)
[2022-04-11] MEDS: ascorbic acid 500mg tablet PO SCH ×2 (09:05→20:20)
[2022-04-11] MEDS: nicotine 7mg patch - 24hr TD SCH (09:06)
--- NOTE | 2022-04-11 12:08 | NUR ---
Pt continues to use her walking pacing back and forth in front of the nurses station. While walking with the pt she became tearful and shared, "I am homeless." This nurse assured her she would be going to a home and that she is not homeless.
--- NOTE | 2022-04-11 14:23 | NUR ---
Pt's soft neck collar has not been brought in by long-term. Pt continues to ambulate with a FWW. She is now resting in her chair beside the bed.
[2022-04-11] MEDS: acetaminophen 325mg tablet PO PRN (15:20)
--- NOTE | 2022-04-11 16:15 | NUR ---
Pt gown changed. Bandage to her face reinforced. Pt has been tearful throughout the day. She continues to be up and down from her chair to the end of the room. She ambulates with a FWW. At times she is seen ambulationg without it safely. Pt could benefit from her soft neck brace that is at her chcf so she would raise her head when walking.
[2022-04-11] MEDS: quetiapine fumarate ER 300mg tablet PO SCH (16:25)
--- NOTE | 2022-04-11 17:47 | NUR ---
Pt is now sitting in her chair. She is calm and cooperative.
--- NOTE | 2022-04-11 18:21 | NUR ---
Pt is eating her dinner sitting up in a chair. She has been calm and cooperative today.
[2022-04-11] MEDS: docusate sod 250mg capsule PO SCH (20:21)
[2022-04-11] MEDS: polyethylene glycol 3350 17gm powd pack PO SCH (21:00)
[2022-04-11] MEDS: fluvoxamine 25 MG tablet PO SCH (21:23)
[2022-04-11] MEDS: montelukast 10mg tablet PO SCH (21:23)
[2022-04-11] MEDS: divalproex sod 250mg ER (24-hour) tablet PO SCH (21:23)
[2022-04-11] MEDS: lamoTRIgine 100mg tablet PO SCH (21:23)
--- NOTE | 2022-04-12 07:00 | NUR ---
Received Pt standing by her bed using FWW well. Pt walking back and fourth in front of nurses desk. Pt wants breakfast and is hungry.
--- NOTE | 2022-04-12 07:36 | NUR ---
Reviewed [facility] SU[employer] SPECIALIST documentation and in agreement 04/11/2022. Selina Cerda RN
[2022-04-12] MEDS: atorvastatin 10mg tablet PO SCH (08:36)
[2022-04-12] MEDS: sennosides 8.6mg tablet PO SCH ×2 (08:36→20:30)
[2022-04-12] MEDS: lactobacillus rhamnosus 10,000 MMU CELLS/CAPSULE PO SCH (08:36)
[2022-04-12] MEDS: ferrous sulfate 325mg tablet PO SCH ×2 (08:36→20:30)
[2022-04-12] MEDS: vortioxetine HBr tablet 5 MG TABLET PO SCH ×2 (08:37→20:30)
[2022-04-12] MEDS: ascorbic acid 500mg tablet PO SCH ×2 (08:37→20:31)
[2022-04-12] MEDS: multivitamins, therapeutics tablet PO SCH (08:37)
[2022-04-12] MEDS: nicotine 7mg patch - 24hr TD SCH (08:42)
[2022-04-12] MEDS: nystatin 15 GM powder TP SCH ×2 (08:42→20:31)
[2022-04-12] MEDS: JUVEN Shake w/Arg/Glut/Ca2+Bmb (Juven 19.3gm) pkt 240ml PO SCH ×3 (08:43→17:57)
--- NOTE | 2022-04-12 09:05 | NUR ---
Pt continues to walk unit and attempt to walk off. Pt took AM meds w/o issue and ate breakfast well. Pt really enjoys her shakes. Pt wants to leave and was yelling about her son "taking bullets" for her.
--- NOTE | 2022-04-12 11:30 | NUR ---
Pt became angry and made several attempts to leave unit. Pt received Ativan 2mg prn.
[2022-04-12] MEDS: LORazepam 1 MG tablet PO PRN ×2 (11:51→20:32)
--- NOTE | 2022-04-12 13:30 | NUR ---
Pt ate lunch well and ate her shake. Pt remains wanting to leave the unit and smoke. Pt redirected away from exits multiple times.
--- NOTE | 2022-04-12 14:45 | NUR ---
Pt given tea and was able to sit near staff and the nurse desk for a while.
[2022-04-12] MEDS: quetiapine fumarate ER 300mg tablet PO SCH (16:14)
--- NOTE | 2022-04-12 16:30 | NUR ---
Pt took prescribed seroquel after gentle prompting. Xeroform dressing replaced on left side of face.
--- NOTE | 2022-04-12 17:32 | NUR ---
Pt demanding dinner and irritated at not being able to leave and smoke. Pt in bed resting at this time.
--- NOTE | 2022-04-12 19:56 | NUR ---
The patient has been wandering around the unit. She presently attempted to leave the unit and told staff "I have been here 6 months!" "I want to go home" She verbalized frustration about being in the hospital and she was reminded that [facility] is attempting to locate a placement for her.
[2022-04-12] MEDS: polyethylene glycol 3350 17gm powd pack PO SCH (20:29)
[2022-04-12] MEDS: fluvoxamine 25 MG tablet PO SCH (20:30)
[2022-04-12] MEDS: docusate sod 250mg capsule PO SCH (20:30)
[2022-04-12] MEDS: lamoTRIgine 100mg tablet PO SCH (20:30)
[2022-04-12] MEDS: montelukast 10mg tablet PO SCH (20:30)
[2022-04-12] MEDS: divalproex sod 250mg ER (24-hour) tablet PO SCH (20:30)
--- NOTE | 2022-04-12 21:25 | NUR ---
The patient was compliant with her medications. She refused to sleep in her assigned bed "I don't want to get shot at" She decided that she wanted to sleep in the bed adjacent to her own bed.
--- NOTE | 2022-04-12 23:20 | NUR ---
The patient appears to be sleeping
--- NOTE | 2022-04-13 01:21 | NUR ---
The patient appears to be sleeping
--- NOTE | 2022-04-13 04:29 | NUR ---
The patient appears to be sleeping
--- NOTE | 2022-04-13 05:13 | NUR ---
The patient appears to be sleeping
--- NOTE | 2022-04-13 06:30 | NUR ---
Patient has just woke up, and is going to the restroom.
[2022-04-13] MEDS: nystatin 15 GM powder TP SCH ×2 (08:00→20:00)
[2022-04-13] MEDS: JUVEN Shake w/Arg/Glut/Ca2+Bmb (Juven 19.3gm) pkt 240ml PO SCH ×3 (08:00→18:02)
[2022-04-13] MEDS: nicotine 7mg patch - 24hr TD SCH ×2 (08:00→10:44)
[2022-04-13 08:19] LABS: BASOPHILS % (AUTO) 0.3 % (0-1); EOSINOPHILS % (AUTO) 0.7 % (0-6); HEMATOCRIT 35.1 % (35.0-45.0); HEMOGLOBIN 11.5 g/dl (12.0-16.0); LYMPHOCYTES # (AUTO) 1.2 X10'3 (1.1-4.8); LYMPHOCYTES % (AUTO) 23.3 % (21-51); MEAN CORPUSCULAR HEMOGLOBIN 30.3 PG (27.0-31.0); MEAN CORPUSCULAR HGB CONC 32.9 g/dL (33.0-36.5); MEAN CORPUSCULAR VOLUME 92.2 FL (78-98); MEAN PLATELET VOLUME 8.7 FL (7.4-10.4); MONOCYTES # (AUTO) 0.3 X10'3 (0-0.9); MONOCYTES % (AUTO) 6.3 % (2-12); NEUTROPHILS # (AUTO) 3.5 X10'3 (1.8-7.7); NEUTROPHILS % (AUTO) 69.4 % (42-75); PLATELET COUNT 159 X10'3 (140-440); RED CELL DISTRIBUTION WIDTH 13.3 % (11.5-14.5); WHITE BLOOD COUNT 5.1 X10'3 (4.5-11.0)
[2022-04-13 08:26] LABS: ALANINE AMINOTRANSFERASE 25 U/L (12-78); ALBUMIN 3.4 G/DL (3.4-5.0); ALKALINE PHOSPHATASE 52 IU/L (46-116); ANION GAP 5 (8-16); ASPARTATE AMINO TRANSFERASE 28 U/L (10-37); BILIRUBIN,TOTAL 0.3 MG/DL (0.1-1.0); BLOOD UREA NITROGEN 24 MG/DL (7-18); BUN/CREATININE RATIO 30.8 (6.6-38.0); CALCIUM 8.5 MG/DL (8.5-10.1); CHLORIDE 102 MMOL/L (99-107); CREATININE 0.78 MG/DL (0.40-0.90); GLUCOSE 152 MG/DL (70-104); POTASSIUM 3.9 MMOL/L (3.5-5.1); SODIUM 140 MMOL/L (135-145); TOTAL PROTEIN 6.7 G/DL (6.4-8.2); eGFR 79 ML/MIN
--- NOTE | 2022-04-13 08:30 | NUR ---
Patient is up wandering around. She keeps trying to go out through the exit, but she is redirectable.
--- NOTE | 2022-04-13 09:02 | NUR ---
tech assisted pt into green scrubs while pt searched the bathroom for a shower.
[2022-04-13] MEDS: ferrous sulfate 325mg tablet PO SCH ×3 (10:44→20:01)
[2022-04-13] MEDS: multivitamins, therapeutics tablet PO SCH (10:44)
[2022-04-13] MEDS: ascorbic acid 500mg tablet PO SCH ×3 (10:44→20:01)
[2022-04-13] MEDS: lactobacillus rhamnosus 10,000 MMU CELLS/CAPSULE PO SCH (10:44)
[2022-04-13] MEDS: sennosides 8.6mg tablet PO SCH ×2 (10:44→20:00)
[2022-04-13] MEDS: atorvastatin 10mg tablet PO SCH (10:44)
[2022-04-13] MEDS: vortioxetine HBr tablet 5 MG TABLET PO SCH ×2 (10:45→20:00)
--- NOTE | 2022-04-13 12:30 | NUR ---
Patient is talking to her father on the phone.
--- NOTE | 2022-04-13 13:58 | NUR ---
Patient continues to wander the unit in front of nurses station. No distress noted.
[2022-04-13] MEDS: quetiapine fumarate ER 300mg tablet PO SCH (16:13)
[2022-04-13] MEDS: LORazepam 1 MG tablet PO PRN ×2 (16:13→20:00)
--- NOTE | 2022-04-13 16:55 | NUR ---
Patient wandering the unit. She has gone for the door multiple times, but has not made it past the curtains. She is doing lots of name calling and empty threats.
--- NOTE | 2022-04-13 19:00 | NUR ---
The patient up and wandering the unit with her walker. At one point she insister that "can I go to the home and see the bodies?" She then made comments about seeing her children. She presents as confused but redirectable.
[2022-04-13] MEDS: divalproex sod 250mg ER (24-hour) tablet PO SCH (20:00)
[2022-04-13] MEDS: lamoTRIgine 100mg tablet PO SCH (20:00)
[2022-04-13] MEDS: docusate sod 250mg capsule PO SCH ×2 (20:00→21:00)
[2022-04-13] MEDS: fluvoxamine 25 MG tablet PO SCH (20:00)
[2022-04-13] MEDS: polyethylene glycol 3350 17gm powd pack PO SCH (20:01)
[2022-04-13] MEDS: montelukast 10mg tablet PO SCH ×2 (20:01→21:00)
--- NOTE | 2022-04-13 21:18 | NUR ---
The patient is currently sitting by the nurses station and eating chocolate.
--- NOTE | 2022-04-13 22:56 | NUR ---
The patient is agitated. She stated that she was hungry and she was given a sandwhich
--- NOTE | 2022-04-13 23:46 | NUR ---
The patient awake but very drowsy. She was assisited with getting to bed.
--- NOTE | 2022-04-14 01:07 | NUR ---
The patient appears to be sleeping
--- NOTE | 2022-04-14 02:43 | NUR ---
The patient is up and wanting to have a ciggarette. She also complained of being hungry. She was given a snack and is currently sitting on her chair eating.
[2022-04-14] MEDS: LORazepam 1 MG tablet PO PRN ×4 (03:27→20:06)
--- NOTE | 2022-04-14 03:28 | NUR ---
This report writer was called to assist primary RN as patient load was heavy. This patient was given PRN Ativan 2 mg. It was given with jello and the patient complied with taking.
--- NOTE | 2022-04-14 05:23 | NUR ---
The patient is sitting up in her chair. She is yelling. She is wanting soda
--- NOTE | 2022-04-14 06:30 | NUR ---
Received pt. awake, she presents as impulsive, intrusive and is demanding "Give me my Pepsi now damnit!" She also demands to go ouside and smoke at intervals and will walk towards exits. Pt. is able to be redirected with persistance. She remains on 1:1 observation r/t fall risk and safety precautions.
[2022-04-14] MEDS: ferrous sulfate 325mg tablet PO SCH ×2 (07:27→19:57)
[2022-04-14] MEDS: lactobacillus rhamnosus 10,000 MMU CELLS/CAPSULE PO SCH (07:27)
[2022-04-14] MEDS: atorvastatin 10mg tablet PO SCH (07:28)
[2022-04-14] MEDS: multivitamins, therapeutics tablet PO SCH (07:28)
[2022-04-14] MEDS: sennosides 8.6mg tablet PO SCH ×2 (07:28→19:57)
[2022-04-14] MEDS: vortioxetine HBr tablet 5 MG TABLET PO SCH ×2 (07:28→19:58)
[2022-04-14] MEDS: nicotine 7mg patch - 24hr TD SCH (07:28)
[2022-04-14] MEDS: ascorbic acid 500mg tablet PO SCH ×2 (07:28→19:58)
[2022-04-14] MEDS: JUVEN Shake w/Arg/Glut/Ca2+Bmb (Juven 19.3gm) pkt 240ml PO SCH ×3 (08:00→18:08)
--- NOTE | 2022-04-14 08:00 | NUR ---
Unable to complete mental health assessments this AM: [facility] Suicide Severity Risk, Psych/Suicide Assessment, and CSSRS Screener r/t pt. non-compliance.
--- NOTE | 2022-04-14 08:30 | NUR ---
Pt. was resistant to care and spit out all morning medications. She stated in a disroganized and agitated manner, "I have a baby coming out of me, I can't take them!" Staff was able redirect pt. to reality and she calmed down. This mortgage loan underwriter repulled pt's medications from the [employer] and she was then compliant with taking them all with much reassurance from this mortgage loan underwriter.
--- NOTE | 2022-04-14 09:18 | NUR ---
Pt. continues to exhibit some irrtability, impulsivity, and is exit seeking. PRN Ativan 2mg was administered and will continue to monitor closely.
--- NOTE | 2022-04-14 10:30 | NUR ---
Pt. is laying in bed watching TV at this time.
--- NOTE | 2022-04-14 12:35 | NUR ---
Pt. is standing at the Nurse's station at this time, fall precautions are in place.
--- NOTE | 2022-04-14 14:34 | NUR ---
Pt. is up walking with her walker and standing by her bed at this time. She requires intermittent redirection from staff as she remains exit-seeking to "Go get a soda." Pt. remains on 1:1 r/t safety precautions.
[2022-04-14] MEDS: quetiapine fumarate ER 300mg tablet PO SCH (15:31)
--- NOTE | 2022-04-14 15:48 | NUR ---
Pt. continues to exhibit restlessness and is exit-seeking, PRN Ativan was administered.
--- NOTE | 2022-04-14 16:38 | NUR ---
Pt. is sitting in bed at this time eating a snack.
--- NOTE | 2022-04-14 18:07 | NUR ---
Pt. is sitting in bed eating dinner at this time.
[2022-04-14] MEDS: fluvoxamine 25 MG tablet PO SCH (20:05)
[2022-04-14] MEDS: montelukast 10mg tablet PO SCH (20:06)
[2022-04-14] MEDS: polyethylene glycol 3350 17gm powd pack PO SCH (20:06)
[2022-04-14] MEDS: divalproex sod 250mg ER (24-hour) tablet PO SCH (20:06)
[2022-04-14] MEDS: docusate sod 250mg capsule PO SCH (20:06)
[2022-04-14] MEDS ORDERED: LORazepam 2 mg/ml vial IM ONE (20:45)
--- NOTE | 2022-04-14 20:53 | NUR ---
2030 pt agitated, cursing staff, unable to give all night time medications, Dr PETERSON notified, ativan 2mg im ordered for agitation.
[2022-04-14] MEDS: lamoTRIgine 100mg tablet PO SCH (21:00)
[2022-04-15] MEDS: LORazepam 1 MG tablet PO PRN ×2 (03:49→19:33)
--- NOTE | 2022-04-15 03:51 | NUR ---
pt awake agitated, pt given po ativan and something to eat, pt walking with walker
--- NOTE | 2022-04-15 04:35 | NUR ---
pt ambulating with walker
--- NOTE | 2022-04-15 07:00 | NUR ---
Received Pt near bed ambulating with FWW and heading toward the exit. Pt redirected back to her bed area.
[2022-04-15] MEDS: JUVEN Shake w/Arg/Glut/Ca2+Bmb (Juven 19.3gm) pkt 240ml PO SCH ×4 (08:00→19:12)
[2022-04-15] MEDS: nicotine 7mg patch - 24hr TD SCH (08:00)
[2022-04-15] MEDS: ferrous sulfate 325mg tablet PO SCH ×2 (08:40→19:35)
[2022-04-15] MEDS: sennosides 8.6mg tablet PO SCH ×2 (08:40→19:35)
[2022-04-15] MEDS: atorvastatin 10mg tablet PO SCH (08:40)
[2022-04-15] MEDS: lactobacillus rhamnosus 10,000 MMU CELLS/CAPSULE PO SCH (08:40)
[2022-04-15] MEDS: vortioxetine HBr tablet 5 MG TABLET PO SCH ×2 (08:41→19:38)
[2022-04-15] MEDS: multivitamins, therapeutics tablet PO SCH (08:41)
[2022-04-15] MEDS: ascorbic acid 500mg tablet PO SCH ×2 (08:41→19:34)
--- NOTE | 2022-04-15 09:05 | NUR ---
Pt has made multiple attempts to leave EROF and needs redirection back to her bed area. Pt took AM meds with prompting. Pt ate breakfast well.
--- NOTE | 2022-04-15 11:15 | NUR ---
Pt roaming around at times and needing redirection away from exits and other bed areas. Pt demanding and loud at times.
--- NOTE | 2022-04-15 13:05 | NUR ---
Pt ate lunch well. Pt repeating that she has four packs of cigarrettes and wants to smoke. Pt upset when told she can not smoke hear, nor does she have cigs. Pt continues to use her sip cup and has been spilling on herself a bit. Pt dropped her cup and broke lid. A new sip lid was obtained for her.
[2022-04-15] MEDS: quetiapine fumarate ER 300mg tablet PO SCH (16:00)
--- NOTE | 2022-04-15 16:41 | NUR ---
Pt showered down the hughes and dressing on face changed. Pt angry and yelling about needing shoes and wanting to go out.
[2022-04-15] MEDS ORDERED: LORazepam 2 mg/ml vial IM ONE (17:50)
--- NOTE | 2022-04-15 18:09 | NUR ---
Pt refused 1600 seroquel. Pt made continuous attempts to leave unit and resisted redirection and hit promotions executive producer staff when returning to bed. Ativan 2mg IM ordered by JAPANESE TUTOR and administered to Pt, due to severe agitation.
--- NOTE | 2022-04-15 18:14 | NUR ---
Pt moved from EROF to main ER and placed in bed 16.
[2022-04-15] MEDS: polyethylene glycol 3350 17gm powd pack PO SCH (19:33)
[2022-04-15] MEDS: divalproex sod 250mg ER (24-hour) tablet PO SCH (19:34)
[2022-04-15] MEDS: montelukast 10mg tablet PO SCH (19:36)
[2022-04-15] MEDS: lamoTRIgine 100mg tablet PO SCH (19:36)
[2022-04-15] MEDS: fluvoxamine 25 MG tablet PO SCH (19:37)
[2022-04-15] MEDS: docusate sod 250mg capsule PO SCH (21:00)
[2022-04-16] MEDS: LORazepam 1 MG tablet PO PRN ×4 (03:24→19:49)
--- NOTE | 2022-04-16 06:25 | NUR ---
Received pt. laying in bed at the beginning of the shift, she dozed on and off intermittently and would awaken at intervals and yell out "I'm hungry! They didn't feed me all day long!" However, per report, pt. had been snacking intermittently most of the night. Will continue to monitor closely. Addendum: 04/16/22 at 0656 by WILY Pt. remains in 1:1 for safety precautions
--- NOTE | 2022-04-16 07:34 | NUR ---
Pt. is yelling out agitatedly, "I'm hungry! I need something to eat damnit! I haven't eaten X3 days" This jingle writer attempted to provide education to pt. that breakfast is on it's way, however she was unable to understand this and continue to persevarate. Pt. has multiple beverages at bedside available to her, but is refusing these. Pt. attempted to rip into a bag of dirty linens in the room and required multiple verbal and physical redirection for safety precautions. Pt. then began to persevrate on obtaining these dirty linens and yelled out loudly, "I want my clothes! You stole them from me!" Pt. requires much redirection, will continue to monitor closely.
[2022-04-16] MEDS: vortioxetine HBr tablet 5 MG TABLET PO SCH ×2 (08:06→19:49)
[2022-04-16] MEDS: sennosides 8.6mg tablet PO SCH ×2 (08:06→19:50)
[2022-04-16] MEDS: multivitamins, therapeutics tablet PO SCH (08:06)
[2022-04-16] MEDS: atorvastatin 10mg tablet PO SCH (08:06)
[2022-04-16] MEDS: ascorbic acid 500mg tablet PO SCH ×2 (08:06→20:00)
[2022-04-16] MEDS: lactobacillus rhamnosus 10,000 MMU CELLS/CAPSULE PO SCH (08:06)
[2022-04-16] MEDS: ferrous sulfate 325mg tablet PO SCH ×2 (08:06→19:49)
[2022-04-16] MEDS: nicotine 7mg patch - 24hr TD SCH (08:07)
--- NOTE | 2022-04-16 08:26 | NUR ---
Pt. was given a snack prior to breakfast arriving and PRN Ativan was administered r/t anxiety and agitation. Pt. is sitting up eating at this time, will continue to monitor closely.
--- NOTE | 2022-04-16 09:20 | NUR ---
Pt. continues to make frequent elopement attempts to "Go smoke a cigarrette," and requires redirection and reorientation to reality that she remains in the hospital at this time. Pt. is agumentative and and impulsive and reports she is "In a video store and can walk outside and smoke a cigarrette!" Pt. is laying in bed at this time while this technical publications writer plays music for her, will continue to monitor closely.
--- NOTE | 2022-04-16 10:19 | NUR ---
Pt. had a large BM on the commode, she continues require assistance from staff to perform ADLs. Pt. remains restless and appears to be fighting sleep. She will stand up and yell out intermittently, "Give me food! Let me leave!" She ate 100% of breakfast. Pt. is able to be redirected and will lay back down in bed before repeating the same behaviors a short time later. Will continue to monitor closely.
--- NOTE | 2022-04-16 11:32 | NUR ---
Pt. continues to yell out at intervals in a demanding manner, "Give me food now!" She was provided with a snack and is sitting up in bed eating at this time. Pt. continues to be under close observation for safety precautions.
--- NOTE | 2022-04-16 12:27 | NUR ---
Pt. is sitting up in bed eating lunch at this time.
--- NOTE | 2022-04-16 12:52 | NUR ---
Pt. remains restless and agitated at intervals. She pushed her way out of the ER room past this technical writer and editor and ambulated to the back exit door stating, "I'm getting the f... out of here to smoke a cigarrette!" It took three staff members to stop pt. as she is very strong and agressive at times. She can also be verbally abusive. Pt. was attmpting to hit and kick staff, and then attempted to sit on the floor. Staff was able to get pt. into a wheel chair and wheeled her around the unit for a change of scenery. She continues on 1:1 observation for safety precautions. Addendum: 04/16/22 at 1313 by WILY PRN Ativan was administered.
[2022-04-16] MEDS: JUVEN Shake w/Arg/Glut/Ca2+Bmb (Juven 19.3gm) pkt 240ml PO SCH ×2 (13:07→17:57)
--- NOTE | 2022-04-16 13:52 | NUR ---
Pt. had another large formed BM on the commode with assistance from staff. She is laying in bed at this time.
--- NOTE | 2022-04-16 14:32 | NUR ---
Pt. is sleeping in bed at this time.
[2022-04-16] MEDS: quetiapine fumarate ER 300mg tablet PO SCH (15:10)
--- NOTE | 2022-04-16 16:22 | NUR ---
Pt's dressing to left cheek was changed and weekly picture was obtained. Pt. is sleeping in bed at this time, rr are even and unlabored.
--- NOTE | 2022-04-16 17:40 | NUR ---
Pt. up yelling loudly at this time demanding food, "I'm starving!" Pt. has been snacking all day and was reminded multiple times that dinner is on it's way. Will continue to provide redirection, pt. has multiple beverages available to her at this time.
--- NOTE | 2022-04-16 18:49 | NUR ---
Received patient eating dinner. Patient laid herself down in bed after eating. Movie was put on to distract patient. Patient fell asleep a short time later. Patient sleeping at this time. Nurse at bedside.
[2022-04-16] MEDS: docusate sod 250mg capsule PO SCH (19:49)
[2022-04-16] MEDS: fluvoxamine 25 MG tablet PO SCH (19:50)
[2022-04-16] MEDS: montelukast 10mg tablet PO SCH (19:50)
[2022-04-16] MEDS: divalproex sod 250mg ER (24-hour) tablet PO SCH (19:50)
[2022-04-16] MEDS: lamoTRIgine 100mg tablet PO SCH (19:50)
[2022-04-16] MEDS: polyethylene glycol 3350 17gm powd pack PO SCH (19:51)
--- NOTE | 2022-04-16 20:11 | NUR ---
patient awake watching TV in LOS. Patient took evening meds with naveed.
--- NOTE | 2022-04-16 22:36 | NUR ---
patient laying on side with eyes closed and appears to be sleeping at this time.
--- NOTE | 2022-04-16 23:55 | NUR ---
Patient laying on back with head slightly raised, appears to be sleeping at this time.
--- NOTE | 2022-04-17 01:39 | NUR ---
Patient appears to be sleeping at this time.
--- NOTE | 2022-04-17 04:09 | NUR ---
Patient woke up , made unitelligible speech and went back to sleep.
--- NOTE | 2022-04-17 06:10 | NUR ---
Patient appears to be sleeping supine. No distress observed. Continue to monitor.
--- NOTE | 2022-04-17 06:23 | NUR ---
Patient attempting to get out of bed. Sitter at bedside encouraging patient to lay in bed until breakfast. Continue to monitor.
[2022-04-17] MEDS: vortioxetine HBr tablet 5 MG TABLET PO SCH ×2 (08:00→19:52)
[2022-04-17] MEDS: JUVEN Shake w/Arg/Glut/Ca2+Bmb (Juven 19.3gm) pkt 240ml PO SCH ×3 (08:03→18:17)
[2022-04-17] MEDS: sennosides 8.6mg tablet PO SCH ×2 (08:11→19:49)
[2022-04-17] MEDS: atorvastatin 10mg tablet PO SCH (08:11)
[2022-04-17] MEDS: lactobacillus rhamnosus 10,000 MMU CELLS/CAPSULE PO SCH (08:11)
[2022-04-17] MEDS: multivitamins, therapeutics tablet PO SCH (08:11)
[2022-04-17] MEDS: ferrous sulfate 325mg tablet PO SCH ×2 (08:11→19:49)
[2022-04-17] MEDS: ascorbic acid 500mg tablet PO SCH ×2 (08:11→19:50)
[2022-04-17] MEDS: nicotine 7mg patch - 24hr TD SCH (08:12)
--- NOTE | 2022-04-17 08:20 | NUR ---
Patient eating breakfast. No distress observed. Continue to monitor.
--- NOTE | 2022-04-17 09:10 | NUR ---
Large BM in BR toilet. Per report. 2 large BMs yesterday.
--- NOTE | 2022-04-17 10:19 | NUR ---
Pt up out of bed, ambulating with her walker. Pt is in no acute distress at this time.
--- NOTE | 2022-04-17 11:12 | NUR ---
Patient walking around the unit with her walker. Patient keeps going to the curtain and wants to leave. RN and/or Marleny Khalil standing at curtain to make sure patient does not walk out. Patient is calm and cooperative at this time. Continue to monitor.
--- NOTE | 2022-04-17 11:53 | NUR ---
Patient keeps walking to the curtain. Now she is saying, in a Southern accent: "You called me a lesbian and you copped a feel." RN asked who she was talking about and she stated "You." RN advised patient that she has never touched her inapppropriately. Patient then says "I am leaving to smoke." RN advises patient that this a No Smoking hospital and she can't smoke. And is keeps on going...Continue to monitor.
--- NOTE | 2022-04-17 12:17 | NUR ---
Patient eating lunch and feeding herself. No distress observed. Continue to monitor.
[2022-04-17] MEDS: LORazepam 1 MG tablet PO PRN ×2 (12:20→19:41)
--- NOTE | 2022-04-17 14:28 | NUR ---
Patient wanted to where a bra and pants. Tech got some scrub pants for her to wear and RN found a bra in [facility] for her to wear. Patient has a green scrub top. Patient is happy to wear "regular clothes." Patient sitting on her bed for the moment. Continue to monitor.
--- NOTE | 2022-04-17 15:07 | NUR ---
Patient walking around the unit attempting to get into cabinets and coming up to the nurses station. Patient is now laying in bed. No distress observed. Continue to monitor.
[2022-04-17] MEDS: quetiapine fumarate ER 300mg tablet PO SCH (16:40)
--- NOTE | 2022-04-17 17:02 | NUR ---
Patient asked for her neck brace. RN looked through patient's belongings and there is not one. There is none listed in patient's belonging list. RN sent a Message to [employer]. She was going to email [employer] to see where her neck brace s located. Patient was given her crocks to wear as she is walking a lot around the unit. Continue to monitor.
--- NOTE | 2022-04-17 17:55 | NUR ---
Patient screaming at curtain to ED management "I'm hungry! I'm hungry!" RN Kendal and TANYA Mireles were attempting to walk patient back into E.D. Patient leaned back and RNs slowly sat patient on the ground. Patient eventually got up. Security was called and they walked her back to her bed. RN advised patient that dinner would be arriving soon. Continue to monitor.
--- NOTE | 2022-04-17 18:46 | NUR ---
The patient is up and ambulating around the unit.
[2022-04-17] MEDS: polyethylene glycol 3350 17gm powd pack PO SCH (20:12)
[2022-04-17] MEDS: fluvoxamine 25 MG tablet PO SCH (20:13)
[2022-04-17] MEDS: divalproex sod 250mg ER (24-hour) tablet PO SCH (20:13)
[2022-04-17] MEDS: lamoTRIgine 100mg tablet PO SCH (20:13)
[2022-04-17] MEDS: montelukast 10mg tablet PO SCH (20:13)
[2022-04-17] MEDS: docusate sod 250mg capsule PO SCH (20:13)
--- NOTE | 2022-04-17 22:21 | NUR ---
The patient is up and wandering around the unit. She periodically lays on her bed but then gets back up.
--- NOTE | 2022-04-17 23:26 | NUR ---
The patient appears to be sleeping
--- NOTE | 2022-04-18 | NUR ---
The patient up and asking for coffee. She was made aware of the time and encouraged to go back to bed. She appears sleepy.
--- NOTE | 2022-04-18 01:45 | NUR ---
The patient wandering around the unit. Came up to the nursing station asking for coffee and stated, "It's my birthday"
--- NOTE | 2022-04-18 03:13 | NUR ---
The patient has been up for the majority of the night. She is now laying on her bed with staff doing one to one
--- NOTE | 2022-04-18 05:36 | NUR ---
The patient has been screaming various topics ie coffee and that she is being starved. She has now put herself on the floor twice in the past 30 minutes when she has not immediately gotten her way. Security was called and they did assist her up off the floor and she made no effort to asssist. She continues to yell the same thing over and over again. She did have her dressing changed. After about 10 minutes on the floor she stopped yelling and got up.
--- NOTE | 2022-04-18 06:10 | NUR ---
When RN walked in at 0600. Patient at the curtain yelling out and being obnoxious. Then patient attempts to go into nursing area. Continue to monitor.
--- NOTE | 2022-04-18 07:00 | NUR ---
Dr Morales speaking to patient. Patient slept for about 30 minutes and just awoke. Patient up at nurses station. Patient asked Dr Morales for coffee. Continue to monitor.
[2022-04-18] MEDS: lactobacillus rhamnosus 10,000 MMU CELLS/CAPSULE PO SCH (08:00)
[2022-04-18] MEDS: sennosides 8.6mg tablet PO SCH ×2 (08:08→21:00)
[2022-04-18] MEDS: atorvastatin 10mg tablet PO SCH (08:09)
[2022-04-18] MEDS: vortioxetine HBr tablet 5 MG TABLET PO SCH ×2 (08:09→21:00)
[2022-04-18] MEDS: multivitamins, therapeutics tablet PO SCH (08:09)
[2022-04-18] MEDS: ferrous sulfate 325mg tablet PO SCH ×2 (08:09→21:00)
[2022-04-18] MEDS: LORazepam 1 MG tablet PO PRN ×2 (08:09→20:31)
[2022-04-18] MEDS: nicotine 7mg patch - 24hr TD SCH (08:09)
[2022-04-18] MEDS: ascorbic acid 500mg tablet PO SCH ×2 (08:10→21:00)
[2022-04-18] MEDS: JUVEN Shake w/Arg/Glut/Ca2+Bmb (Juven 19.3gm) pkt 240ml PO SCH ×3 (08:10→18:29)
--- NOTE | 2022-04-18 08:14 | NUR ---
Patient is feeding herself breakfast. No distress observed. Patient is calm and cooperative at this time. Continue to monitor.
--- NOTE | 2022-04-18 10:07 | NUR ---
Patient is up and walking around the unit with her walker. No distress observed. Continue to monitor.
--- NOTE | 2022-04-18 10:35 | NUR ---
Wound Care nurse changing patient's facial wound. Patient sittingin bed and cooperative. Continue to monitor.
--- NOTE | 2022-04-18 12:00 | NUR ---
Patient has been asleep for about 20 minutes in her recliner. Continue to monitor.
--- NOTE | 2022-04-18 12:08 | NUR ---
Patient is sitting up and feeding herself. No distress observed. Continue to monitor.
--- NOTE | 2022-04-18 14:03 | NUR ---
Patient up and walking with her walker. Patient is quiet and no distress observed. Continue to monitor.
--- NOTE | 2022-04-18 15:49 | NUR ---
Patient attempting to walk with her walker out of ED OF by ED offices. RN sitting in front of Curtain blocking patient's path. Patient is insistent but does turn around and goes back to her area. Continue to monitor.
[2022-04-18] MEDS: quetiapine fumarate ER 300mg tablet PO SCH (16:44)
--- NOTE | 2022-04-18 17:37 | NUR ---
Patient is often asking for food and coffee and is asking for coffee now. RN started a decaf pot in the break room. Continue to monitor
--- NOTE | 2022-04-18 18:30 | NUR ---
Upon arriving to unit, noted patient sitting up in chair. No anxiety or s/sx of distress noted.
[2022-04-18] MEDS: divalproex sod 250mg ER (24-hour) tablet PO SCH (20:30)
--- NOTE | 2022-04-18 20:30 | NUR ---
Patient sitting up in chair. Administered 2 of her HS medications and refused the rest. Patient states, "I'm not going to take that "arsenic." Encouraged her that she hasn't taken all of her mediations to help her sleep. Again patient states, "I'm not taking that "arsenic". You could try to bribe me with taco faustin or chocolate, I'm not going to take that arsenic." Will attempt again later.
[2022-04-18] MEDS: polyethylene glycol 3350 17gm powd pack PO SCH (21:00)
[2022-04-18] MEDS: docusate sod 250mg capsule PO SCH (22:00)
[2022-04-18] MEDS: fluvoxamine 25 MG tablet PO SCH (22:00)
[2022-04-18] MEDS: montelukast 10mg tablet PO SCH (22:00)
[2022-04-18] MEDS: lamoTRIgine 100mg tablet PO SCH (22:00)
--- NOTE | 2022-04-18 22:07 | NUR ---
Patient got up and walk around and layed back down. Offered HS meds again, refused to respond. Returned meds and documented patient refusal. Patient tucked into bed and placed a warm blanket on her. Noted patient to be tired and wanting to sleep.
--- NOTE | 2022-04-18 23:32 | NUR ---
breaking primary RN patient in bed eys closed covers on rr even un;abored no observable s/s of acute stress at this time
--- NOTE | 2022-04-19 00:53 | NUR ---
PATIENT HAS BEEN UP AND DOWN FOR THE LAST FEW HOURS. SHE'S SLEPT MAYBE A LITTLE LONGER THAN 1 HOUR. EACH TIME SHE WAKES UP SHE ASKS FOR FOOD. THIS NURSE REMINDED HER THAT SHE JUST ATE A SANDWICH. ENCOURAGED PATIENT TO HYDRATE THEN PATIENT WALKED BACK TO BED.
--- NOTE | 2022-04-19 02:42 | NUR ---
Noted patient sleeping without distress. Will continue to monitor.
--- NOTE | 2022-04-19 04:10 | NUR ---
Patient has been sleeping straight through for passed few hours. Resting comfortably on left side side-ways in bed. Does not appear to be uncomfortable. Will continue to monitor.
--- NOTE | 2022-04-19 05:34 | NUR ---
Got up to BR, changed pants. VS stable. Back to bed, resting well. Will continue to monitor.
--- NOTE | 2022-04-19 06:26 | NUR ---
Patient was up earlier but is now laying in bed with her eyes closed. No distress observed. Continue to monitor.
--- NOTE | 2022-04-19 07:28 | NUR ---
Agree with WOC charting on 04/18/22 - Late entry 04/19/22 8730
[2022-04-19] MEDS: ferrous sulfate 325mg tablet PO SCH ×3 (08:00→20:00)
[2022-04-19] MEDS: lactobacillus rhamnosus 10,000 MMU CELLS/CAPSULE PO SCH (08:00)
--- NOTE | 2022-04-19 08:20 | NUR ---
Patient angry that her breakfast is not here yet. RN explained her breakfast should be here any minute. Patient was given a sandwich and a yogurt just before 0700 am. Patient walked out [facility] door. Marleny Leal followed patient. RN called security and they brought her back. During that time patient's food arrived. Patient walked back in with Security cussing at staff. RN advised patient that one more cuss word/outburst that she would hold her breakfast until she settled down. Patient immediately became quiet and RN gave patient her breakfast. Continue to monitor.
[2022-04-19] MEDS: multivitamins, therapeutics tablet PO SCH (08:31)
[2022-04-19] MEDS: sennosides 8.6mg tablet PO SCH ×2 (08:31→20:03)
[2022-04-19] MEDS: ascorbic acid 500mg tablet PO SCH ×2 (08:32→20:00)
[2022-04-19] MEDS: nicotine 7mg patch - 24hr TD SCH (08:32)
[2022-04-19] MEDS: atorvastatin 10mg tablet PO SCH (08:32)
[2022-04-19] MEDS: vortioxetine HBr tablet 5 MG TABLET PO SCH ×2 (08:32→20:00)
[2022-04-19] MEDS: JUVEN Shake w/Arg/Glut/Ca2+Bmb (Juven 19.3gm) pkt 240ml PO SCH ×3 (08:41→18:20)
--- NOTE | 2022-04-19 10:10 | NUR ---
Patient walked out of the ED OF area again with Tech Mel close behind her. Patient was brought back into the ED OF area yelling. Continue to monitor.
--- NOTE | 2022-04-19 11:25 | NUR ---
Patient again attempted to walk out of the ED OF area. Patient was blocked. Patient doesn't believe her lunch is coming and we are liars. Continue to monitor.
--- NOTE | 2022-04-19 12:14 | NUR ---
Patient eating lunch. No distress observed. Continue to monitor.
--- NOTE | 2022-04-19 13:26 | NUR ---
Patient is laying in bed and watching a comedy. No distress observed at this time. Continue to monitor.
--- NOTE | 2022-04-19 14:16 | NUR ---
Patient snacking and watching T.V. No distress observed. Continue to monitor.
--- NOTE | 2022-04-19 15:27 | NUR ---
Patient has been calm and walking around the unit. No distress observed. Continue to monitor.
[2022-04-19] MEDS: quetiapine fumarate ER 300mg tablet PO SCH (16:57)
--- NOTE | 2022-04-19 17:19 | NUR ---
RN took patient on a walk outside and back in. Patient was appropriate, followed commands and stayed right next to RN. Patient has steady gait and is no longer using the walker. Patient was laughing just before we went on our walk. Patient has gotten better with some TLC. Continue to monitor.
[2022-04-19] MEDS: divalproex sod 250mg ER (24-hour) tablet PO SCH (20:04)
[2022-04-19] MEDS: montelukast 10mg tablet PO SCH (20:04)
[2022-04-19] MEDS: fluvoxamine 25 MG tablet PO SCH (20:05)
[2022-04-19] MEDS: LORazepam 1 MG tablet PO PRN (20:05)
[2022-04-19] MEDS: docusate sod 250mg capsule PO SCH (20:10)
[2022-04-19] MEDS: polyethylene glycol 3350 17gm powd pack PO SCH (20:11)
[2022-04-19] MEDS: lamoTRIgine 100mg tablet PO SCH (20:11)
[2022-04-19] MEDS ORDERED: haloperidol lactate 5mg/ml inj IM ONE (20:35)
--- NOTE | 2022-04-19 20:51 | NUR ---
2029 pt walked to door, trying to get out of unit, will not be redirected, calling staff names and yelling, sat down in hallway and refusing to move, security notifed and asst pt back to bed, pt given haldo 5mg im after advising Dr Jewell of situation
--- NOTE | 2022-04-20 04:12 | NUR ---
PT SLEEPING NO DISTRESS NOTED AT THIS TIME.
--- NOTE | 2022-04-20 04:35 | NUR ---
PT UP TO BATHROOM
[2022-04-20] MEDS: LORazepam 1 MG tablet PO PRN ×3 (05:11→16:38)
--- NOTE | 2022-04-20 05:12 | NUR ---
PT AGITATED, YELLING AND ASKING FOR FOOD, PT GIVEN YOGURT AND ATIVAN FOR AGITATION
[2022-04-20] MEDS: ferrous sulfate 325mg tablet PO SCH ×2 (08:06→19:39)
[2022-04-20] MEDS: vortioxetine HBr tablet 5 MG TABLET PO SCH ×2 (08:06→19:39)
[2022-04-20] MEDS: atorvastatin 10mg tablet PO SCH (08:06)
[2022-04-20] MEDS: sennosides 8.6mg tablet PO SCH ×2 (08:06→19:39)
[2022-04-20] MEDS: multivitamins, therapeutics tablet PO SCH (08:06)
[2022-04-20] MEDS: lactobacillus rhamnosus 10,000 MMU CELLS/CAPSULE PO SCH (08:06)
[2022-04-20] MEDS: ascorbic acid 500mg tablet PO SCH ×2 (08:06→20:00)
[2022-04-20] MEDS: nicotine 7mg patch - 24hr TD SCH (08:19)
[2022-04-20] MEDS: JUVEN Shake w/Arg/Glut/Ca2+Bmb (Juven 19.3gm) pkt 240ml PO SCH ×3 (08:23→18:26)
--- NOTE | 2022-04-20 08:30 | NUR ---
Pt. awake and eating breakfast at bedside independently. Pt. took all AM medication.
--- NOTE | 2022-04-20 10:30 | NUR ---
Pt. awake and resting in bed. Pt. in no apparent distress.
--- NOTE | 2022-04-20 11:04 | NUR ---
Pt. attempting to leave hospital. pt. given Ativan 2mg po with moderate effect.
[2022-04-20] MEDS: acetaminophen 325mg tablet PO PRN (11:24)
--- NOTE | 2022-04-20 12:30 | NUR ---
Pt. awake and eating lunch in bed.
--- NOTE | 2022-04-20 14:30 | NUR ---
Pt. awake and pacing the floor with walker and LOS staff.
[2022-04-20] MEDS: quetiapine fumarate ER 300mg tablet PO SCH (15:42)
--- NOTE | 2022-04-20 16:38 | NUR ---
Pt. attempting to hit LOS staff and leave building. Pt. given Ativan 2mg po with moderate effect.
[2022-04-20] MEDS ORDERED: diphenhydrAMINE 50 mg/ml inj IM ONE ×2 (17:20→20:35)
[2022-04-20] MEDS ORDERED: LORazepam 2 mg/ml vial IM ONE ×2 (17:29→20:35)
[2022-04-20] MEDS ORDERED: haloperidol lactate 5mg/ml inj IM ONE (17:30)
--- NOTE | 2022-04-20 17:44 | NUR ---
Pt. hitting, kicking, scratching, and spitting on LOS staff. Pt. given IM Haldol 10mg, Benadryl 50mg, and Ativan 2mg with good effect.
--- NOTE | 2022-04-20 18:30 | NUR ---
Assumed patient care. She had consumed all of her dinner. Patient exhibits delusional behavior.
--- NOTE | 2022-04-20 18:32 | NUR ---
Note alisa in EDM - 04/21/22 at 0434 by CECILY Patients behavior is worsening. She tries to strike this commercial loan underwriter without success. Dr. Garcia advised. Orders taken for Benadryl 50 mg IM and Ativan 2 mg IM. Both will be given.
--- NOTE | 2022-04-20 19:02 | NUR ---
This patient was given sedation for her combative behavior by day shift RN. This typewriter ribbon winder uses his only tech to sit at patients bedside as she continues to get out of bed.
--- NOTE | 2022-04-20 19:37 | NUR ---
Patients agressive behavior is starting to escelate. Patient is yelling at times.
[2022-04-20] MEDS: fluvoxamine 25 MG tablet PO SCH (19:38)
[2022-04-20] MEDS: lamoTRIgine 100mg tablet PO SCH (19:39)
[2022-04-20] MEDS: montelukast 10mg tablet PO SCH (19:39)
[2022-04-20] MEDS: divalproex sod 250mg ER (24-hour) tablet PO SCH (19:40)
[2022-04-20] MEDS: polyethylene glycol 3350 17gm powd pack PO SCH (19:40)
--- NOTE | 2022-04-20 20:26 | NUR ---
Patient continues to exhibit loud screaming. She has struck out at the Tech, she has attempted to kick the Tech. This communications writer had taken over 1:1 monitoring of patient at bedside as patient is out of control.
--- NOTE | 2022-04-20 20:47 | NUR ---
Patients behavior is worsening. She tries to strike this chief underwriter without success. Dr. Garcia advised. Orders taken for Benadryl 50 mg IM and Ativan 2 mg IM. Both will be given.
[2022-04-20] MEDS: docusate sod 250mg capsule PO SCH (21:00)
--- NOTE | 2022-04-20 21:03 | NUR ---
Patient continues to be combative. Dr. Garcia at bedside. V/O for non behavioral restraints.
--- NOTE | 2022-04-20 21:13 | NUR ---
Patient is being moved to the main ED as her behavior is not manageable on this unit.
--- NOTE | 2022-04-20 21:14 | NUR ---
Report given to Jaycee Dominguez RN.
--- NOTE | 2022-04-21 06:19 | NUR ---
Received report from Katina MARTÍNEZ
[2022-04-21] MEDS: multivitamins, therapeutics tablet PO SCH (07:14)
[2022-04-21] MEDS: atorvastatin 10mg tablet PO SCH (07:14)
[2022-04-21] MEDS: lactobacillus rhamnosus 10,000 MMU CELLS/CAPSULE PO SCH (07:14)
[2022-04-21] MEDS: sennosides 8.6mg tablet PO SCH ×3 (07:14→20:00)
[2022-04-21] MEDS: ferrous sulfate 325mg tablet PO SCH ×3 (07:14→20:00)
[2022-04-21] MEDS: ascorbic acid 500mg tablet PO SCH ×2 (07:15→20:00)
[2022-04-21] MEDS: nicotine 7mg patch - 24hr TD SCH (07:15)
[2022-04-21] MEDS: vortioxetine HBr tablet 5 MG TABLET PO SCH ×3 (07:16→20:00)
[2022-04-21] MEDS: JUVEN Shake w/Arg/Glut/Ca2+Bmb (Juven 19.3gm) pkt 240ml PO SCH ×3 (08:00→18:03)
[2022-04-21] MEDS: LORazepam 1 MG tablet PO PRN ×2 (08:08→19:26)
--- NOTE | 2022-04-21 11:10 | NUR ---
pt has not had restraints on this shift, frequent reorientation required pt currently sitting quietly in bed drinking soda
--- NOTE | 2022-04-21 15:00 | NUR ---
Pt. brought over from main ER. Pt. has restraint wrapped around her arm and refusing to let staff get it off. Pt. yelling, it's mine you ! RN got help from tech and was able to get restraint off of pt's wrist.
[2022-04-21] MEDS: quetiapine fumarate ER 300mg tablet PO SCH (16:37)
--- NOTE | 2022-04-21 17:00 | NUR ---
Pt. sitting on bed and drinking coffee calmly.
--- NOTE | 2022-04-21 19:04 | NUR ---
Received patient from Zeus MARTÍNEZ. Patient cooperative at this time. patient given bed bath and bandage changed on left cheek. Patient clothes changed. patient currently sitting on edge of bed.
[2022-04-21] MEDS: divalproex sod 250mg ER (24-hour) tablet PO SCH (19:26)
[2022-04-21] MEDS: montelukast 10mg tablet PO SCH ×2 (19:27→20:37)
[2022-04-21] MEDS: docusate sod 250mg capsule PO SCH (19:27)
[2022-04-21] MEDS: polyethylene glycol 3350 17gm powd pack PO SCH (19:27)
[2022-04-21] MEDS: lamoTRIgine 100mg tablet PO SCH ×2 (19:27→20:36)
--- NOTE | 2022-04-21 19:30 | NUR ---
Patient refused to take evening medications besides Depakote 1000mg and colace 250mg and miralax. patient became disorganized and reports that she is not stupid and does not take those medications even though pt has been receiving medications for a month
[2022-04-21] MEDS ORDERED: diphenhydrAMINE 50 mg/ml inj IM ONE ×2 (20:03→22:00)
[2022-04-21] MEDS ORDERED: haloperidol lactate 5mg/ml inj IM ONE ×2 (20:03→22:00)
[2022-04-21] MEDS ORDERED: LORazepam 2 mg/ml vial IM ONE ×2 (20:04→22:00)
--- NOTE | 2022-04-21 20:23 | NUR ---
Patient became disorgamized and tried to leave unit with FWW. patient stopped at hallway Patient began ramming this nurse with walker. Security called. ED provider ordered 2mg Ativan. 50mg Benadryl, 5mg Haldol IM. Patient administered medications. redirecting pt at times to stay in bed for safety. Tech at bedside.
[2022-04-21] MEDS: fluvoxamine 25 MG tablet PO SCH (20:36)
--- NOTE | 2022-04-21 22:30 | NUR ---
Patient continues to be disruptive and disorganized. Patient hit , kick and bit tech and nurse. Provider ordered soft restraints at 2130, pt is able to wiggle out of restraints continuously hurting staff by scratching and kicking. Provider notified. At 2200 Provider ordered Ativan 1mg, Haldol 5mg, Benadryl 25mg IM.
--- NOTE | 2022-04-21 23:38 | NUR ---
patient urinated in bed. Patient bed and clothing changed. Patient promised to stay in bed and to quit yelling. Restraints removed. Patient brought a sandwich.
[2022-04-22] MEDS ORDERED: LORazepam 2 mg/ml vial IM ONE (01:00)
[2022-04-22] MEDS ORDERED: haloperidol lactate 5mg/ml inj IM ONE (01:00)
[2022-04-22] MEDS ORDERED: diphenhydrAMINE 50 mg/ml inj IM ONE (01:00)
--- NOTE | 2022-04-22 01:27 | NUR ---
Patient continues to yell, scream, hit, spit, scratch. Provider ordered 50mg Benadryl, 5mg Haldol, 2mg Ativan IM. Patient continues to yell.
--- NOTE | 2022-04-22 03:01 | NUR ---
Patient finally asleep at this time.
--- NOTE | 2022-04-22 04:05 | NUR ---
Patient appears to be sleeping at this time. Patient breathing is unlabored and even.
--- NOTE | 2022-04-22 04:46 | NUR ---
Patient mumbling in sleep. breathing is even and unlabored.
--- NOTE | 2022-04-22 06:04 | NUR ---
Patient appears to be sleeping at this time.
--- NOTE | 2022-04-22 06:30 | NUR ---
Pt is lying in bed, appears to be sleeping.
--- NOTE | 2022-04-22 07:35 | NUR ---
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
[2022-04-22] MEDS: multivitamins, therapeutics tablet PO SCH (08:03)
[2022-04-22] MEDS: ferrous sulfate 325mg tablet PO SCH ×2 (08:03→22:39)
[2022-04-22] MEDS: vortioxetine HBr tablet 5 MG TABLET PO SCH ×2 (08:03→22:38)
[2022-04-22] MEDS: atorvastatin 10mg tablet PO SCH (08:03)
[2022-04-22] MEDS: ascorbic acid 500mg tablet PO SCH ×2 (08:04→20:00)
[2022-04-22] MEDS: lactobacillus rhamnosus 10,000 MMU CELLS/CAPSULE PO SCH (08:04)
[2022-04-22] MEDS: sennosides 8.6mg tablet PO SCH ×2 (08:04→20:00)
[2022-04-22] MEDS: JUVEN Shake w/Arg/Glut/Ca2+Bmb (Juven 19.3gm) pkt 240ml PO SCH ×3 (08:04→18:46)
[2022-04-22] MEDS: nicotine 7mg patch - 24hr TD SCH (08:10)
--- NOTE | 2022-04-22 09:12 | NUR ---
Pt ambulated around unit w/ FWW, pt asked for coffee and it was provided. Pt is currently in her room watching TV.
--- NOTE | 2022-04-22 09:37 | NUR ---
Pt is stating that she needs her cervical collar, she is supposed to wear it all the time. Pt admits that she has not had one since she came here to the hospital. This RN discussed the possibility of getting one with physical therapy last month. PT did not agree that she needed one as pt is able to lift her head up when asked to. Pt does seem to have difficulty maintaining her head in an upright position and most of the time, her chin lays against her chest. Pt walked behind the nurse's station and was attempting to rifle through things. Pt redirected out of the nurse's station by [employer].
--- NOTE | 2022-04-22 11:30 | NUR ---
Pt is awake sitting quietly in her room.
--- NOTE | 2022-04-22 13:30 | NUR ---
Pt is awake, she has been ambulating around the unit with her FWW.
--- NOTE | 2022-04-22 14:36 | NUR ---
Pt removed her dressing. Applied a new dressing to left cheek lesion.
[2022-04-22] MEDS: LORazepam 1 MG tablet PO PRN (14:51)
--- NOTE | 2022-04-22 14:58 | NUR ---
Gave PRN Ativan 2 mg PO at 1451 for agitation/yelling.
[2022-04-22] MEDS: quetiapine fumarate ER 300mg tablet PO SCH (15:02)
--- NOTE | 2022-04-22 16:06 | NUR ---
Pt is sitting calmly in her room.
--- NOTE | 2022-04-22 16:55 | NUR ---
Pt attempted to elope. Pt walked out the door closest to her bed. Pt was making delusional statements, "the place is on fire!" Pt directed back to her room.
--- NOTE | 2022-04-22 17:12 | NUR ---
Pt attempted to elope out of the other exit saying, "What don't you understand about this place is on fire?! We're gonna burn up."
[2022-04-22] MEDS ORDERED: ziprasidone IM 20mg inj **IM only IM ONE (18:30)
--- NOTE | 2022-04-22 18:30 | NUR ---
Assumed patient care as she attempts to elope. Patient made it to double doors screaming "fire!" She is combative. Security summoned. Dr. Landrum consulted. Order for Geodon 20 mg IM ordered. A second tech is sent from ER main to overflow to assist.
--- NOTE | 2022-04-22 18:51 | NUR ---
Geodon administered. A sitter is at bedside with patient.
--- NOTE | 2022-04-22 19:15 | NUR ---
Patient was given clean scrubs and a clean underwear breaf was placed. The patient is now sleeping quietly. Color is good. Resp 14. In direct view from nurses station. Frequent rounding for patient safety.
--- NOTE | 2022-04-22 20:01 | NUR ---
Patient is sleeping quietly. Low fowlers postion. Good color. Resp 12.
--- NOTE | 2022-04-22 20:54 | NUR ---
Patient is sleeping quietly in a mid fowlers position. Good color, W/D. Regular resp.
[2022-04-22] MEDS: montelukast 10mg tablet PO SCH (21:00)
[2022-04-22] MEDS: lamoTRIgine 100mg tablet PO SCH (21:00)
[2022-04-22] MEDS: polyethylene glycol 3350 17gm powd pack PO SCH (21:00)
--- NOTE | 2022-04-22 21:44 | NUR ---
Patient sleeping quietly. She has self repositioned in bed.
--- NOTE | 2022-04-22 22:20 | NUR ---
Patient awoke, she ambulated with walker to the nurses station. Patient is redirected back to bed. She accepts snacks. Patient mumbles words about family members being for 35 years. At this time patient is able to be redirected.
[2022-04-22] MEDS: divalproex sod 250mg ER (24-hour) tablet PO SCH (22:38)
[2022-04-22] MEDS: fluvoxamine 25 MG tablet PO SCH (22:39)
[2022-04-22] MEDS: docusate sod 250mg capsule PO SCH (22:39)
--- NOTE | 2022-04-22 23:08 | NUR ---
Patient awoke a short time ago. She was up to bathroom with assist. Patient was compliant with nearly all medications. She ate a cookie and fell back to sleep.
--- NOTE | 2022-04-22 23:38 | NUR ---
Patient is sleeping quietly, she is in a low fowlers position.
--- NOTE | 2022-04-23 02:20 | NUR ---
Patient continues to sleep peacefully. Low fowlers position, good color and regular resp.
--- NOTE | 2022-04-23 04:06 | NUR ---
Patient is up to the bathroom to void with assistance. Patient has had no incontience this shift. Patient has been very cooperative since her Geodon dose at shift change. No delusional behavior noted since the Geodon administration.
--- NOTE | 2022-04-23 04:53 | NUR ---
Patient awoke and did a short walk around the unit. She was then redirected back to bed. Patients dressing on her face was changed. The patient sits quietly holding her bear. The patient then reached for her toiletries. She pulled our her deoderant and a hair brush. The patient has demonstrated hand washing technique and person hygene to include brushing her own hair. The patient tells this publications writer she used to work with [facility] and formerly lived in [place], [place].
--- NOTE | 2022-04-23 06:35 | NUR ---
Patient is awake and walking around. No distress observed. Continue to monitor.
--- NOTE | 2022-04-23 06:54 | NUR ---
Patient sitting up awake. No distress observed. Continue to monitor.
[2022-04-23] MEDS: JUVEN Shake w/Arg/Glut/Ca2+Bmb (Juven 19.3gm) pkt 240ml PO SCH ×3 (08:00→18:09)
--- NOTE | 2022-04-23 08:17 | NUR ---
Patient sitting up and feeding herself. No distress observed. Continue to monitor.
[2022-04-23] MEDS: sennosides 8.6mg tablet PO SCH ×2 (08:42→20:34)
[2022-04-23] MEDS: lactobacillus rhamnosus 10,000 MMU CELLS/CAPSULE PO SCH (08:42)
[2022-04-23] MEDS: vortioxetine HBr tablet 5 MG TABLET PO SCH ×2 (08:42→20:33)
[2022-04-23] MEDS: multivitamins, therapeutics tablet PO SCH (08:42)
[2022-04-23] MEDS: atorvastatin 10mg tablet PO SCH (08:42)
[2022-04-23] MEDS: ferrous sulfate 325mg tablet PO SCH ×2 (08:43→20:35)
[2022-04-23] MEDS: ascorbic acid 500mg tablet PO SCH ×2 (08:43→23:00)
[2022-04-23] MEDS: nicotine 7mg patch - 24hr TD SCH (08:43)
--- NOTE | 2022-04-23 09:28 | NUR ---
Patient sitting in bed reading her book. No distress observed. Continue to monitor.
[2022-04-23] MEDS: acetaminophen 325mg tablet PO PRN (10:26)
--- NOTE | 2022-04-23 11:03 | NUR ---
Patient walking around the unit. No distress observed. Continue to monitor.
--- NOTE | 2022-04-23 12:38 | NUR ---
Patient sitting in her recliner. No distress observed. Continue to monitor.
--- NOTE | 2022-04-23 14:35 | NUR ---
Patient stripping her bed and tech is assisting patient make the bed. No distress observed. Continue to monitor.
--- NOTE | 2022-04-23 16:08 | NUR ---
Patient eating a snack. No distress observed. Patient has not attempted to elope at all today. Patient had a very good day. Continue to monitor.
[2022-04-23] MEDS: quetiapine fumarate ER 300mg tablet PO SCH (16:51)
--- NOTE | 2022-04-23 17:32 | NUR ---
Patient fell asleep in bed. No distress observed. Continue to monitor.
--- NOTE | 2022-04-23 17:52 | NUR ---
Patient sitting up and eating dinner. No distress observed. Continue to monitor.
[2022-04-23] MEDS: docusate sod 250mg capsule PO SCH (20:34)
[2022-04-23] MEDS: polyethylene glycol 3350 17gm powd pack PO SCH (20:35)
[2022-04-23] MEDS: montelukast 10mg tablet PO SCH (20:35)
[2022-04-23] MEDS: divalproex sod 250mg ER (24-hour) tablet PO SCH (20:35)
[2022-04-23] MEDS: lamoTRIgine 100mg tablet PO SCH (20:35)
[2022-04-23] MEDS: fluvoxamine 25 MG tablet PO SCH (23:00)
--- NOTE | 2022-04-23 23:12 | NUR ---
Patient awoke, she complied with taking the remainder of her HS medications. Patient is ambulatory with a normal gait, not needing the need of her walker. The patient is now sitting at bedside. She is cooperative and exhibiting a friendly demeanor.
--- NOTE | 2022-04-24 00:18 | NUR ---
Patient was out of bed, she went to the bathroom to void. On exiting the bathroom she washed her hands. The patient then paced the unit for a short distance and returned to bed.
[2022-04-24] MEDS ORDERED: Melatonin 3mg tablet PO ONE (03:05)
[2022-04-24] MEDS: acetaminophen 325mg tablet PO PRN ×2 (03:13→13:31)
--- NOTE | 2022-04-24 03:16 | NUR ---
Pantient complains of neck pain and feeling tires and cant sleep. Tylenol and Mellatonin given.
--- NOTE | 2022-04-24 05:10 | NUR ---
Patient slept approximately 2 hours after getting Mellaril. She just awoke, went to bathroom by herself and voided. Patient then requested a sandwich.
--- NOTE | 2022-04-24 06:40 | NUR ---
Patient is awake and up and down from her bed. No distress observed. Continue to monitor.
--- NOTE | 2022-04-24 08:07 | NUR ---
Patient sitting up and eating her breakfast. No distress observed. Continue to monitor.
[2022-04-24] MEDS: multivitamins, therapeutics tablet PO SCH (08:34)
[2022-04-24] MEDS: sennosides 8.6mg tablet PO SCH ×2 (08:34→19:32)
[2022-04-24] MEDS: lactobacillus rhamnosus 10,000 MMU CELLS/CAPSULE PO SCH (08:34)
[2022-04-24] MEDS: ascorbic acid 500mg tablet PO SCH ×2 (08:34→19:35)
[2022-04-24] MEDS: atorvastatin 10mg tablet PO SCH (08:34)
[2022-04-24] MEDS: vortioxetine HBr tablet 5 MG TABLET PO SCH ×2 (08:34→19:34)
[2022-04-24] MEDS: ferrous sulfate 325mg tablet PO SCH ×2 (08:34→19:35)
[2022-04-24] MEDS: nicotine 7mg patch - 24hr TD SCH (08:35)
[2022-04-24] MEDS: JUVEN Shake w/Arg/Glut/Ca2+Bmb (Juven 19.3gm) pkt 240ml PO SCH ×3 (08:42→18:21)
--- NOTE | 2022-04-24 10:04 | NUR ---
Patient walking around being cute. No distress observed. Continue to monitor.
--- NOTE | 2022-04-24 12:05 | NUR ---
Patient eating lunch. No distress observed. Continue to monitor.
--- NOTE | 2022-04-24 13:26 | NUR ---
Pt came out of the restroom, wanting to take a shower stating "I can't stand my PONCHO". Nurse advised her that she will be given a shower in the afternoon. Pt changed her top in then bathroom by herself. Pt asked about pain pills for her facial wound
--- NOTE | 2022-04-24 14:20 | NUR ---
RN walked patient to the Old HR shower. Patient tolerated well. Continue to monitor.
--- NOTE | 2022-04-24 15:24 | NUR ---
RN took patient to Old HR Shower. Patient did well and took a shower by herself and changed back to her clothes. On the way back patient "saw her son at the far end of the hallway by "B". Patient was adamant she saw her son and it was difficult to get patient back to ED OF. Security was called and patient walked with Security back to her recliner. Patient does not have good reasoning capacity. Continue to monitor.
[2022-04-24] MEDS: quetiapine fumarate ER 300mg tablet PO SCH (16:59)
--- NOTE | 2022-04-24 18:53 | NUR ---
The patient is resting on her bed. She ate well.
[2022-04-24] MEDS: LORazepam 1 MG tablet PO PRN (19:32)
[2022-04-24] MEDS: polyethylene glycol 3350 17gm powd pack PO SCH (20:03)
[2022-04-24] MEDS: fluvoxamine 25 MG tablet PO SCH (20:04)
[2022-04-24] MEDS: divalproex sod 250mg ER (24-hour) tablet PO SCH (20:05)
[2022-04-24] MEDS: docusate sod 250mg capsule PO SCH (20:05)
[2022-04-24] MEDS: lamoTRIgine 100mg tablet PO SCH (20:07)
[2022-04-24] MEDS: montelukast 10mg tablet PO SCH (20:08)
--- NOTE | 2022-04-24 21:06 | NUR ---
The awakened suddenly and is agitated about not being able to smoke and being in the hospital. She is redirectable. Reminded her of the plan for [facility] to interview her on Sunday for placement. She reported that she was hungry and a sandwhich and applesauce was given.
--- NOTE | 2022-04-24 21:55 | NUR ---
The patient attempted to elope from the unit and was redirected back to her bed
--- NOTE | 2022-04-24 22:43 | NUR ---
The patient is agitated. She is talking to someone who is not there. She is talking about money etc.
--- NOTE | 2022-04-24 23:40 | NUR ---
The patient attempted to leave the unit and became agitated when redirected.
--- NOTE | 2022-04-25 01:06 | NUR ---
The patient appears to be sleeping
--- NOTE | 2022-04-25 02:54 | NUR ---
The patient appears to be sleeping
--- NOTE | 2022-04-25 05:38 | NUR ---
The patient is agitated and unresponsive to verbal interventions. She is attempting repeatedly to run off the unit so she can go smoke. Security staff on the unit. When redirected back to the unit she sat on the floor.
--- NOTE | 2022-04-25 06:40 | NUR ---
Patient awake and walking around the unit. Patient wants to leave to see her son. Patient is talked back to her area. Continue to monitor.
[2022-04-25] MEDS ORDERED: acetaminophen w/codeine (30MG) #3 tablet PO ONE (06:55)
[2022-04-25] MEDS ORDERED: ziprasidone 20mg capsule PO ONE (06:59)
[2022-04-25] MEDS: JUVEN Shake w/Arg/Glut/Ca2+Bmb (Juven 19.3gm) pkt 240ml PO SCH ×3 (07:59→18:05)
--- NOTE | 2022-04-25 08:25 | NUR ---
Patient eating breakfast. No distress observed. Continue to monitor.
[2022-04-25] MEDS: lactobacillus rhamnosus 10,000 MMU CELLS/CAPSULE PO SCH (08:42)
[2022-04-25] MEDS: sennosides 8.6mg tablet PO SCH ×2 (08:42→19:35)
[2022-04-25] MEDS: ferrous sulfate 325mg tablet PO SCH ×2 (08:42→19:35)
[2022-04-25] MEDS: ascorbic acid 500mg tablet PO SCH ×2 (08:42→19:46)
[2022-04-25] MEDS: vortioxetine HBr tablet 5 MG TABLET PO SCH ×2 (08:42→19:35)
[2022-04-25] MEDS: atorvastatin 10mg tablet PO SCH (08:42)
[2022-04-25] MEDS: multivitamins, therapeutics tablet PO SCH (08:42)
[2022-04-25] MEDS: nicotine 7mg patch - 24hr TD SCH (08:43)
--- NOTE | 2022-04-25 10:10 | NUR ---
Patient sitting in her recliner and reading her book. No distress observed. Continue to monitor.
--- NOTE | 2022-04-25 10:32 | NUR ---
Wound Care here to change patient's wound. No distress observed. Continue to monitor.
--- NOTE | 2022-04-25 12:22 | NUR ---
Patient eating lunch. No distress observed. Continue to monitor.
--- NOTE | 2022-04-25 14:11 | NUR ---
Patient reclining in bed. No distress observed. Continue to monitor.
[2022-04-25] MEDS: acetaminophen 325mg tablet PO PRN (14:34)
--- NOTE | 2022-04-25 15:26 | NUR ---
Agree with [facility] charting from 04/25/22 - MERLIN RN
--- NOTE | 2022-04-25 15:49 | NUR ---
Patient eating her snack as she sits in her recliner. No distress observed. Continue to monitor.
--- NOTE | 2022-04-25 16:34 | NUR ---
Brushed and braided hair. Placed rolled up wash clothes under chin to assist with keeping pt head elevated. Pt states "it helps a little."
[2022-04-25] MEDS: quetiapine fumarate ER 300mg tablet PO SCH (17:39)
--- NOTE | 2022-04-25 18:30 | NUR ---
pt reading in chair
[2022-04-25] MEDS: ziprasidone 20mg capsule PO SCH (19:36)
--- NOTE | 2022-04-25 20:30 | NUR ---
pt reading in bed
[2022-04-25] MEDS: divalproex sod 250mg ER (24-hour) tablet PO SCH (20:56)
[2022-04-25] MEDS: fluvoxamine 25 MG tablet PO SCH (20:56)
[2022-04-25] MEDS: docusate sod 250mg capsule PO SCH (20:56)
[2022-04-25] MEDS: polyethylene glycol 3350 17gm powd pack PO SCH (20:57)
[2022-04-25] MEDS: montelukast 10mg tablet PO SCH (20:58)
[2022-04-25] MEDS: lamoTRIgine 100mg tablet PO SCH (20:58)
--- NOTE | 2022-04-25 22:30 | NUR ---
pt in bed sleeping
[2022-04-25] MEDS ORDERED: acetaminophen 325mg tablet PO ONE (23:55)
--- NOTE | 2022-04-26 00:05 | NUR ---
pt got up to use restrrom. tech stated pt felt warm. pt stated she didnt feel good. t99.9 hr 94 bp94/43 r20 o2-97% informed.
[2022-04-26 00:28] LABS: BASOPHILS % (AUTO) 0.6 % (0-1); EOSINOPHILS # (AUTO) 0.2 X10'3 (0-0.9); EOSINOPHILS % (AUTO) 3.2 % (0-6); HEMATOCRIT 33.8 % (35.0-45.0); HEMOGLOBIN 11.4 g/dl (12.0-16.0); LYMPHOCYTES # (AUTO) 1.9 X10'3 (1.1-4.8); LYMPHOCYTES % (AUTO) 37.4 % (21-51); MEAN CORPUSCULAR HGB CONC 33.7 g/dL (33.0-36.5); MEAN CORPUSCULAR VOLUME 92.2 FL (78-98); MEAN PLATELET VOLUME 8.5 FL (7.4-10.4); MONOCYTES # (AUTO) 0.5 X10'3 (0-0.9); MONOCYTES % (AUTO) 9.9 % (2-12); NEUTROPHILS # (AUTO) 2.5 X10'3 (1.8-7.7); NEUTROPHILS % (AUTO) 48.9 % (42-75); PLATELET COUNT 174 X10'3 (140-440); RED BLOOD COUNT 3.66 X10'6 (4.20-5.60); RED CELL DISTRIBUTION WIDTH 13.9 % (11.5-14.5)
[2022-04-26 00:36] LABS: ALANINE AMINOTRANSFERASE 26 U/L (12-78); ALBUMIN 3.2 G/DL (3.4-5.0); ALKALINE PHOSPHATASE 59 IU/L (46-116); ANION GAP 4 (8-16); ASPARTATE AMINO TRANSFERASE 16 U/L (10-37); BILIRUBIN,TOTAL 0.2 MG/DL (0.1-1.0); BLOOD UREA NITROGEN 28 MG/DL (7-18); BUN/CREATININE RATIO 45.9 (6.6-38.0); CALCIUM 8.9 MG/DL (8.5-10.1); CHLORIDE 103 MMOL/L (99-107); CREATINE KINASE 119 U/L (26-192); CREATININE 0.61 MG/DL (0.40-0.90); GLUCOSE 100 MG/DL (70-104); POTASSIUM 4.1 MMOL/L (3.5-5.1); SODIUM 139 MMOL/L (135-145); TOTAL CARBON DIOXIDE 31.6 MMOL/L (24-32); TOTAL PROTEIN 6.4 G/DL (6.4-8.2); eGFR > 90 ML/MIN
--- NOTE | 2022-04-26 06:51 | NUR ---
Received Pt awake and standing by her bed and in no distress at this time. Pt asked a few questions and layed down in her bed.
[2022-04-26] MEDS: JUVEN Shake w/Arg/Glut/Ca2+Bmb (Juven 19.3gm) pkt 240ml PO SCH ×3 (08:00→18:12)
[2022-04-26] MEDS: lactobacillus rhamnosus 10,000 MMU CELLS/CAPSULE PO SCH (08:06)
[2022-04-26] MEDS: sennosides 8.6mg tablet PO SCH ×2 (08:06→19:57)
[2022-04-26] MEDS: vortioxetine HBr tablet 5 MG TABLET PO SCH ×2 (08:06→19:58)
[2022-04-26] MEDS: ascorbic acid 500mg tablet PO SCH ×2 (08:06→19:58)
[2022-04-26] MEDS: ferrous sulfate 325mg tablet PO SCH ×2 (08:06→19:56)
[2022-04-26] MEDS: multivitamins, therapeutics tablet PO SCH (08:06)
[2022-04-26] MEDS: ziprasidone 20mg capsule PO SCH ×2 (08:06→19:57)
[2022-04-26] MEDS: atorvastatin 10mg tablet PO SCH (08:06)
[2022-04-26] MEDS: nicotine 7mg patch - 24hr TD SCH (08:20)
--- NOTE | 2022-04-26 09:00 | NUR ---
Pt. attempted to wander out the front exit r/t, "Wanting a shower." She was able to be easily redirected
--- NOTE | 2022-04-26 10:00 | NUR ---
Pt. showered with minimal assistance needed from staff. Ordered treatment and dressing change was completed to pt's left cheeck, pt. tolerated well. She is sitting in a chair by her bed reading at this time.
[2022-04-26] MEDS: LORazepam 1 MG tablet PO PRN ×2 (12:42→17:01)
--- NOTE | 2022-04-26 12:45 | NUR ---
Pt. exhibited restlessness AEB wandering the unit and wanting to dig through a bag of dirty linen to find "her purse." Pt. required redirection back to her room. She reported head and back pain and PRN Tylenol was administered. Pt. was also administered PRN Ativan r/t what appeared to be anxiety, will continue to monitor.
[2022-04-26] MEDS: acetaminophen 325mg tablet PO PRN (12:54)
[2022-04-26] MEDS: quetiapine fumarate ER 300mg tablet PO SCH (15:48)
--- NOTE | 2022-04-26 17:02 | NUR ---
Pt. becoming increasingly restless and began perseverating on her desire to eat dinner. Staff provided education to pt. that dinner is on it's way, however she did not report understanding. Pt. was provided with various snacks, however she began restelessly searching for food around the unit and required continuous redirection from staff. Pt. yelled out in an agitated manner, "You stole my food! You haven't fed me all day!" She lisette began using various profanities and attempted to elope multiple times off the unit requiring physical escort back to her room by staff. ANGELICA Mandujano was adminstered and will continue to monitor pt. closely. She continues to yell out at this time.
[2022-04-26] MEDS ORDERED: ziprasidone IM 20mg inj **IM only IM ONE (18:00)
--- NOTE | 2022-04-26 18:19 | NUR ---
Pt given IM Geodon 20 mg due to agitation. Pt in chair eating dinner at this time. Addendum: 04/26/22 at 1831 by WILY Security called to assist, pt. tolerated medication well.
--- NOTE | 2022-04-26 20:05 | NUR ---
pt resting in bed. po meds given . no verbal complaints
[2022-04-26] MEDS: docusate sod 250mg capsule PO SCH (20:56)
[2022-04-26] MEDS: fluvoxamine 25 MG tablet PO SCH (20:57)
[2022-04-26] MEDS: divalproex sod 250mg ER (24-hour) tablet PO SCH (20:57)
[2022-04-26] MEDS: lamoTRIgine 100mg tablet PO SCH (20:58)
[2022-04-26] MEDS: polyethylene glycol 3350 17gm powd pack PO SCH (20:58)
[2022-04-26] MEDS: montelukast 10mg tablet PO SCH (20:58)
--- NOTE | 2022-04-27 06:30 | NUR ---
Pt. awake and sitting in gerichair, no s/sx of distress.
--- NOTE | 2022-04-27 07:00 | NUR ---
Pt. OOB and wandering, requesting food, and opening cabnets.
--- NOTE | 2022-04-27 07:30 | NUR ---
Pt. yelling, agitated, attempting to leave the unit.
[2022-04-27] MEDS: ziprasidone 20mg capsule PO SCH ×2 (07:36→19:55)
[2022-04-27] MEDS: atorvastatin 10mg tablet PO SCH (07:36)
[2022-04-27] MEDS: LORazepam 1 MG tablet PO PRN ×3 (07:36→18:44)
[2022-04-27] MEDS: ferrous sulfate 325mg tablet PO SCH ×2 (07:36→19:55)
[2022-04-27] MEDS: multivitamins, therapeutics tablet PO SCH (07:36)
[2022-04-27] MEDS: lactobacillus rhamnosus 10,000 MMU CELLS/CAPSULE PO SCH (07:36)
[2022-04-27] MEDS: vortioxetine HBr tablet 5 MG TABLET PO SCH ×2 (07:36→19:54)
[2022-04-27] MEDS: sennosides 8.6mg tablet PO SCH ×2 (07:38→19:55)
--- NOTE | 2022-04-27 07:45 | NUR ---
PRN Ativan administered, pt. took medications without hesitation.
[2022-04-27] MEDS: JUVEN Shake w/Arg/Glut/Ca2+Bmb (Juven 19.3gm) pkt 240ml PO SCH ×3 (08:00→18:44)
[2022-04-27] MEDS: ascorbic acid 500mg tablet PO SCH ×2 (08:00→20:28)
[2022-04-27] MEDS: nicotine 7mg patch - 24hr TD SCH (08:00)
--- NOTE | 2022-04-27 08:45 | NUR ---
Pt. awake, threw chip bag in bed 25, redirected.
--- NOTE | 2022-04-27 09:45 | NUR ---
Pt. off unit with staff taking a shower.
--- NOTE | 2022-04-27 10:45 | NUR ---
Pt. awake and wondering around, no distress noted.
--- NOTE | 2022-04-27 12:45 | NUR ---
Pt. awke and wandering around unit, demanding food; snack provided.
[2022-04-27] MEDS: acetaminophen 325mg tablet PO PRN (13:23)
--- NOTE | 2022-04-27 15:00 | NUR ---
Pt. sitting in a chair, eating a sandwhich, and participating in an interview.
[2022-04-27] MEDS: quetiapine fumarate ER 300mg tablet PO SCH (16:14)
--- NOTE | 2022-04-27 17:00 | NUR ---
Pt. sitting in a chair near her bed eating a yogurt, no distress noted.
--- NOTE | 2022-04-27 18:30 | NUR ---
Pt sitting in chair eating her dinner.
--- NOTE | 2022-04-27 19:10 | NUR ---
Pt getting up walking towards the curtain stating that she needs to take a shower and starts to yell at PCT. Pt given 2MG ativan and is sitting in her chair.
[2022-04-27] MEDS: fluvoxamine 25 MG tablet PO SCH (19:55)
[2022-04-27] MEDS: docusate sod 250mg capsule PO SCH (19:55)
[2022-04-27] MEDS: divalproex sod 250mg ER (24-hour) tablet PO SCH (19:55)
[2022-04-27] MEDS: montelukast 10mg tablet PO SCH (20:28)
[2022-04-27] MEDS: lamoTRIgine 100mg tablet PO SCH (20:28)
[2022-04-27] MEDS: polyethylene glycol 3350 17gm powd pack PO SCH (20:28)
--- NOTE | 2022-04-27 21:30 | NUR ---
The pt is up and down, walks toward the exit and c/o of being hungry.
--- NOTE | 2022-04-28 01:08 | NUR ---
Pt appears to be sleeping.
--- NOTE | 2022-04-28 04:13 | NUR ---
Pt to the bathroom, requests vivek, is quietly eating at the bedside.
--- NOTE | 2022-04-28 04:16 | NUR ---
Dressing change to left cheek done, pt tolerated.
--- NOTE | 2022-04-28 05:11 | NUR ---
Pt OOB, demanding food, shower...re-direction works for a short time.
[2022-04-28] MEDS: LORazepam 1 MG tablet PO PRN ×3 (05:17→16:03)
--- NOTE | 2022-04-28 06:30 | NUR ---
Received pt. awake and getting restlessly up and down out of her chair searching for breakfast. Pt. was able to be redirected and was provided education by staff that breakfast is not here yet. She was provided with a snack, will continue to monitor closely.
[2022-04-28] MEDS: multivitamins, therapeutics tablet PO SCH (07:02)
[2022-04-28] MEDS: vortioxetine HBr tablet 5 MG TABLET PO SCH ×2 (07:02→19:07)
[2022-04-28] MEDS: sennosides 8.6mg tablet PO SCH ×2 (07:03→19:07)
[2022-04-28] MEDS: ferrous sulfate 325mg tablet PO SCH ×2 (07:03→19:07)
[2022-04-28] MEDS: atorvastatin 10mg tablet PO SCH (07:03)
[2022-04-28] MEDS: ziprasidone 20mg capsule PO SCH ×2 (07:03→19:06)
[2022-04-28] MEDS: lactobacillus rhamnosus 10,000 MMU CELLS/CAPSULE PO SCH (07:03)
[2022-04-28] MEDS: ascorbic acid 500mg tablet PO SCH ×2 (07:03→19:09)
[2022-04-28] MEDS: nicotine 7mg patch - 24hr TD SCH (07:04)
[2022-04-28] MEDS: JUVEN Shake w/Arg/Glut/Ca2+Bmb (Juven 19.3gm) pkt 240ml PO SCH ×3 (08:00→17:57)
--- NOTE | 2022-04-28 08:30 | NUR ---
Pt. showered with minimal assistance needed from staff. Ordered treatment and dressing change was completed to pt's left cheeck, pt. tolerated well. She is sitting in a chair by her bed eating at this time.
[2022-04-28] MEDS: acetaminophen w/codeine (30MG) #3 tablet PO PRN (09:38)
--- NOTE | 2022-04-28 10:10 | NUR ---
Staff from [facility] is at bedside interviewing pt. at this time.
--- NOTE | 2022-04-28 10:30 | NUR ---
Note alisa in [facility] - 04/29/22 at 0006 by SYLWIA Patient sleeping comfortably. No s/sx of distress noted.
--- NOTE | 2022-04-28 11:01 | NUR ---
Staff from [facility] is finished interviewing pt. at this time. Pt. is sitting in her chair eating.
--- NOTE | 2022-04-28 11:20 | NUR ---
Pt. presents with restlessness and some agitation, AEB wandering the unit searching for "A bag of clothes!" Pt. was rediected back to her room by staff and PRN Ativan was administered, will continue to monitor closely.
--- NOTE | 2022-04-28 12:32 | NUR ---
Pt. is sitting up in a chair at bedside eating lunch at this time.
--- NOTE | 2022-04-28 13:59 | NUR ---
pt sitting in a recliner having a snack.
--- NOTE | 2022-04-28 14:53 | NUR ---
Pt. was picking at the wound on the left side of her face. She was reminded not to pick per staff and pt's nails were trimmed by staff. She tolerated this well, and pt's dressing was changed. Will continue to monitor pt. closely.
[2022-04-28] MEDS: quetiapine fumarate ER 300mg tablet PO SCH (16:03)
--- NOTE | 2022-04-28 16:22 | NUR ---
Pt. is sitting in her chair at bedside at this time. Earlier she was restlessly pacing the unit requiring redirection from staff and PRN Ativan was administered. Will continue to monitor pt. closely.
--- NOTE | 2022-04-28 17:56 | NUR ---
Pt. is sitting up eating dinner at this time.
--- NOTE | 2022-04-28 18:30 | NUR ---
Patient care transfered to this nurse. Patient up, walking unit trying to go outside to smoke. Patient is loud and escorted back towards unit. Offered snack.
[2022-04-28] MEDS: lamoTRIgine 100mg tablet PO SCH (19:06)
[2022-04-28] MEDS: divalproex sod 250mg ER (24-hour) tablet PO SCH (19:06)
[2022-04-28] MEDS: docusate sod 250mg capsule PO SCH (19:07)
[2022-04-28] MEDS: montelukast 10mg tablet PO SCH (19:07)
[2022-04-28] MEDS: fluvoxamine 25 MG tablet PO SCH (19:07)
[2022-04-28] MEDS: polyethylene glycol 3350 17gm powd pack PO SCH (19:08)
--- NOTE | 2022-04-28 20:30 | NUR ---
Patient received all HS medications. Appears to be falling asleep in chair. Assisted her back to bed safely.
--- NOTE | 2022-04-28 22:30 | NUR ---
Patient sleeping comfortably. No s/sx of distress noted.
--- NOTE | 2022-04-29 00:07 | NUR ---
Patient continues to be resting without any distress. Will cont. to monitor.
--- NOTE | 2022-04-29 02:06 | NUR ---
Sleeping at this time. Has not awoke since she first harsha to sleep. So far she's had about 5 hrs of sleep straight. Will continue to monitor.
--- NOTE | 2022-04-29 03:15 | NUR ---
Patient woke up and went to BR. Gave her food when asked and 2 mg Ativan po x 1. Restless up out of chair.
[2022-04-29] MEDS: LORazepam 1 MG tablet PO PRN ×4 (03:25→20:51)
[2022-04-29] MEDS ORDERED: LORazepam 2 mg/ml vial IM ONE (05:00)
[2022-04-29] MEDS ORDERED: ziprasidone IM 20mg inj **IM only IM ONE (05:00)
--- NOTE | 2022-04-29 05:13 | NUR ---
Patient yelling, spitting, scratching at staff. New orders from MD for 2 mg Ativan IM, and early administration of Geodon 20 mg IM. Pt placed in two point restraints until medication becomes effective and pt no longer presents a safety tae to self and others.
--- NOTE | 2022-04-29 05:53 | NUR ---
Patient resting with eyes closed, removed 2-point restraints at this time and placed them at nurses station. Patient comfortable and sleeping well. Will continue to monitor.
--- NOTE | 2022-04-29 06:30 | NUR ---
Pt is lying in bed on her back, she appears to be sleeping.
--- NOTE | 2022-04-29 07:20 | NUR ---
Pt is awake, got up and walked to the bathroom.
[2022-04-29] MEDS: ziprasidone 20mg capsule PO SCH ×2 (08:21→20:51)
[2022-04-29] MEDS: lactobacillus rhamnosus 10,000 MMU CELLS/CAPSULE PO SCH (08:21)
[2022-04-29] MEDS: vortioxetine HBr tablet 5 MG TABLET PO SCH ×2 (08:21→20:51)
[2022-04-29] MEDS: ferrous sulfate 325mg tablet PO SCH ×2 (08:22→20:51)
[2022-04-29] MEDS: ascorbic acid 500mg tablet PO SCH ×2 (08:22→20:51)
[2022-04-29] MEDS: sennosides 8.6mg tablet PO SCH ×2 (08:22→20:51)
[2022-04-29] MEDS: multivitamins, therapeutics tablet PO SCH (08:22)
[2022-04-29] MEDS: atorvastatin 10mg tablet PO SCH (08:22)
[2022-04-29] MEDS: acetaminophen w/codeine (30MG) #3 tablet PO PRN ×2 (08:23→16:37)
[2022-04-29] MEDS: nicotine 7mg patch - 24hr TD SCH (08:28)
[2022-04-29] MEDS: JUVEN Shake w/Arg/Glut/Ca2+Bmb (Juven 19.3gm) pkt 240ml PO SCH ×3 (08:29→18:00)
--- NOTE | 2022-04-29 08:59 | NUR ---
Pt did not have a dressing on her CA lesion left cheek. Cleansed and applied a new dressing. Pt has attempted to leave the unit 3 times so far this morning.
--- NOTE | 2022-04-29 10:50 | NUR ---
Pt is sitting quietly in her room.
--- NOTE | 2022-04-29 12:35 | NUR ---
Pt is walking around the unit.
--- NOTE | 2022-04-29 12:36 | NUR ---
UA collected and sent.
--- NOTE | 2022-04-29 13:02 | NUR ---
Pt attempted to leave the unit stating, "I need to speak to the psychiatrist so he can send me home." Pt redirected away from the exit. Pt is stating that she is hungry even though she just ate lunch.
[2022-04-29 13:40] LABS: CLARITY,URINE CLEAR (Clear); COLOR,URINE YELLOW (Yellow); GLUCOSE, URINE NEGATIVE (Neg); KETONES,URINE TRACE mg/dl (Neg); LEUKOCYTE ESTERASE ,URINE NEGATIVE (Neg); NITRITES, URINE NEGATIVE (Neg); OCCULT BLOOD,URINE NEGATIVE (Neg); PH,URINE 6.5 (4.8-8.0); PROTEIN,URINE NEGATIVE (Neg); UROBILINOGEN,URINE 0.2 E.U/dL (0.2-1.0)
[2022-04-29 13:44] LABS: UA COLLECTION TYPE VOIDED
--- NOTE | 2022-04-29 14:21 | NUR ---
Pt requested coffee and a pot of decaf was made.
--- NOTE | 2022-04-29 14:49 | NUR ---
Pt began yelling that we are starving her. Pt provided with a sandwich and some chips.
[2022-04-29] MEDS: quetiapine fumarate ER 300mg tablet PO SCH (15:13)
--- NOTE | 2022-04-29 16:31 | NUR ---
Pt likes to walk to the back corner of the unit in front of the med room and supply room door to converse with and sometimes yell at the kitchen staff. Pt seems to believe that dietary is behind one of the doors.
--- NOTE | 2022-04-29 16:33 | NUR ---
UA results WNL.
--- NOTE | 2022-04-29 16:41 | NUR ---
Pt c/o 11/02 "face" pain and was medicated with Tylenol w/ codeine at 1637.
--- NOTE | 2022-04-29 17:47 | NUR ---
Pt moved from ER overflow bed 23 to ER main bed 15. Wheeled in chair off the unit accompanied by care techdebbi.
--- NOTE | 2022-04-29 19:22 | NUR ---
Patient is pleasant and cooperative at this time; easily redirected when needed. Sitting quietly in her room and ate 100% of her dinner.
[2022-04-29] MEDS: docusate sod 250mg capsule PO SCH (20:51)
[2022-04-29] MEDS: divalproex sod 250mg ER (24-hour) tablet PO SCH (20:51)
[2022-04-29] MEDS: polyethylene glycol 3350 17gm powd pack PO SCH (20:51)
[2022-04-29] MEDS: fluvoxamine 25 MG tablet PO SCH (20:51)
[2022-04-29] MEDS: montelukast 10mg tablet PO SCH (20:51)
[2022-04-29] MEDS: lamoTRIgine 100mg tablet PO SCH (20:51)
--- NOTE | 2022-04-29 21:15 | NUR ---
Patient is pleasant and cooperative at this time; a little hesitant with medication. She put three of her pills into her drink but ended up taking it anyway. PRN Ativan provided. Following direction without diffficulty. She is sitting down in gisela-chair watching TV.
--- NOTE | 2022-04-30 00:48 | NUR ---
Patient was restless prior to falling asleep and reporting delusional thought content. Claimed her legs are broken and requesting w/c. Patient also became a little agitated as she was claiming administration wanted her out and was upset that writter was not allowing her to leave. She appeared to be having VH as she kept reporting seeing a black bag of her clothing under her bed. Patient is observed sleeping at this time and does not appear to be hvaing difficulty.
--- NOTE | 2022-04-30 03:08 | NUR ---
Patient woke up used the restroom and restless at this time; c/o being hungry and wanting to leave stating, "the hospital wants me out."
[2022-04-30] MEDS: LORazepam 1 MG tablet PO PRN ×3 (03:38→13:42)
--- NOTE | 2022-04-30 05:07 | NUR ---
Patient remains restless; PRN Ativan little effect. She is yelling "I'm hungry," "I want pepsi" and "why won't you let me out of here?" repetitively. Patient is attempting to push through staff when being redirected.
[2022-04-30] MEDS ORDERED: haloperidol lactate 5mg/ml inj IM ONE (05:40)
--- NOTE | 2022-04-30 06:45 | NUR ---
Pt. was transferred over from the main ER in a w/c accompanied by staff. Pt. is requesting a snack.
[2022-04-30] MEDS: lactobacillus rhamnosus 10,000 MMU CELLS/CAPSULE PO SCH (07:13)
[2022-04-30] MEDS: multivitamins, therapeutics tablet PO SCH (07:14)
[2022-04-30] MEDS: vortioxetine HBr tablet 5 MG TABLET PO SCH ×2 (07:14→20:03)
[2022-04-30] MEDS: ziprasidone 20mg capsule PO SCH ×2 (07:14→20:03)
[2022-04-30] MEDS: atorvastatin 10mg tablet PO SCH (07:14)
[2022-04-30] MEDS: sennosides 8.6mg tablet PO SCH ×2 (07:14→20:03)
[2022-04-30] MEDS: ferrous sulfate 325mg tablet PO SCH ×2 (07:14→20:03)
[2022-04-30] MEDS: ascorbic acid 500mg tablet PO SCH ×2 (07:14→20:00)
[2022-04-30] MEDS: nicotine 7mg patch - 24hr TD SCH (07:15)
[2022-04-30] MEDS: JUVEN Shake w/Arg/Glut/Ca2+Bmb (Juven 19.3gm) pkt 240ml PO SCH ×3 (08:14→17:39)
--- NOTE | 2022-04-30 08:40 | NUR ---
Pt's exhibited restlessness AEB wandering the unit and agitation AEB yelling loudly. She was provided verbal redirection with minimal effectiveness, PRN Ativan was administered and will continue to monitor.
--- NOTE | 2022-04-30 10:24 | NUR ---
PT. was provided with clean scrubs and was encouraged to change. She was able to do so independently.
--- NOTE | 2022-04-30 12:25 | NUR ---
Pt. is sitting up eating lunch at this time in a chair at bedside.
--- NOTE | 2022-04-30 13:43 | NUR ---
Pt. exhibited increased agitation and restlessness AEB wandering, exit seeking, and yelling out, "Get me out of here!" PRN Ativan was administered and will continue to monitor closely.
--- NOTE | 2022-04-30 15:45 | NUR ---
Pt. suddenly became agitated for no apparent reasaon and attempted to elope out the front curtain. She began yelling out, "I have no money!" repeatedly. This scenario writer and Tech were unable to redirect pt. back to the unit. Security was called and pt. was escorted back on the unit.
[2022-04-30] MEDS: quetiapine fumarate ER 300mg tablet PO SCH (15:52)
[2022-04-30] MEDS: acetaminophen w/codeine (30MG) #3 tablet PO PRN (16:30)
--- NOTE | 2022-04-30 16:30 | NUR ---
Pt. had another elopement attempt out the front curtain. She was yelling out, "I need my bag outside!" Pt. was unable to be redirected by staff or reoriented to reality. Pt. then sat on the ground while assisted to the ground by staff, no injuries were obtained. Security assisted staff to get pt. off the ground and she was escorted back to her room again. Will continue to monitor closely. Pt. was provided with a snack and staff provided active listening and positive encouragement.
[2022-04-30] MEDS ORDERED: ziprasidone IM 20mg inj **IM only IM ONE (16:55)
--- NOTE | 2022-04-30 17:15 | NUR ---
Pt. had another elopment attempt out the front curtain and began yelling loudly using multiple profanities towards staff regarding her desire to leave the unit. Pt. was unable to be redirected by staff and posed a safety risk r/t her agitated behaviors. Security was called and this publications writer obtained an order for IM Geodon 20mg from Dr. Awad. Injection was administered in pt's deltoid and she tolerated well, will continue to monitor closely.
[2022-04-30] MEDS: lamoTRIgine 100mg tablet PO SCH (20:02)
[2022-04-30] MEDS: divalproex sod 250mg ER (24-hour) tablet PO SCH (20:02)
[2022-04-30] MEDS: fluvoxamine 25 MG tablet PO SCH (20:02)
[2022-04-30] MEDS: montelukast 10mg tablet PO SCH (20:03)
[2022-04-30] MEDS: docusate sod 250mg capsule PO SCH (20:03)
[2022-04-30] MEDS: polyethylene glycol 3350 17gm powd pack PO SCH (20:04)
[2022-04-30] MEDS ORDERED: diphenhydrAMINE 50 mg/ml inj IM ONE (20:55)
[2022-04-30] MEDS ORDERED: LORazepam 2 mg/ml vial IM ONE (20:55)
--- NOTE | 2022-04-30 23:12 | NUR ---
At start of shift pt up on unit in W/C which she self-propels around unit. Repeatedly attempt to leave unit, at beginning easy to redirect. Pt became increasingly agitated yelling she ambulated toward exit. When staff attempted to escort her back to her bed she quit supporting her weight and staff controlled her descent to the floor. Security was called they were able to get pt in a w/c and roll her back to bed. 50mg Benadryl and 4 mg Ativan administered IM per order pt has been sleeping since.
--- NOTE | 2022-05-01 01:56 | NUR ---
Pt remains asleep resp even and unlabored.
--- NOTE | 2022-05-01 05:16 | NUR ---
Pt asleep resp even and unlabored.
--- NOTE | 2022-05-01 05:43 | NUR ---
Pt woke up when VS taken. Assisted to BR incontinent urine in depends Soaked through Scrubs changed and complete linen change. Pt sittin up at bedside eating cereal at this time.
--- NOTE | 2022-05-01 06:52 | NUR ---
Patient has been up in w/c attempting to open cabinets. Patient asking for food. Continue to monitor.
--- NOTE | 2022-05-01 07:50 | NUR ---
Patient eating breakfast. No distress observed. Continue to monitor.
[2022-05-01] MEDS: ferrous sulfate 325mg tablet PO SCH ×2 (08:52→19:54)
[2022-05-01] MEDS: vortioxetine HBr tablet 5 MG TABLET PO SCH ×2 (08:52→19:55)
[2022-05-01] MEDS: lactobacillus rhamnosus 10,000 MMU CELLS/CAPSULE PO SCH (08:52)
[2022-05-01] MEDS: sennosides 8.6mg tablet PO SCH ×2 (08:52→19:55)
[2022-05-01] MEDS: ascorbic acid 500mg tablet PO SCH ×2 (08:52→19:55)
[2022-05-01] MEDS: atorvastatin 10mg tablet PO SCH (08:52)
[2022-05-01] MEDS: ziprasidone 20mg capsule PO SCH ×2 (08:52→19:54)
[2022-05-01] MEDS: multivitamins, therapeutics tablet PO SCH (08:52)
[2022-05-01] MEDS: nicotine 7mg patch - 24hr TD SCH (08:53)
[2022-05-01] MEDS: JUVEN Shake w/Arg/Glut/Ca2+Bmb (Juven 19.3gm) pkt 240ml PO SCH ×3 (08:54→18:09)
--- NOTE | 2022-05-01 09:05 | NUR ---
Patient moving around the unit in her w/c. Patient also gets up and walks. No distress observed at this time. Continue to monitor.
--- NOTE | 2022-05-01 11:05 | NUR ---
Patient attempts to stroll out of unit. Patient is stopped. Continue to monitor.
--- NOTE | 2022-05-01 12:11 | NUR ---
Patient eating lunch. No distress observed. Continue to monitor.
--- NOTE | 2022-05-01 12:49 | NUR ---
Patient yelling at RN and cussing stating she hasn't had a shower in a month. RN corrects patient and advised patient she took a shower the day before yesterday and was given warm bath wipes this morning. Patient calls RN a f-ing liar. Patient eventually calms down and goes back to her room and sits in the recliner. Continue to monitor.
--- NOTE | 2022-05-01 14:32 | NUR ---
Patient sitting in her wheelchair moving around the unit No distress observed. Continue to monitor.
[2022-05-01] MEDS: acetaminophen w/codeine (30MG) #3 tablet PO PRN (15:27)
--- NOTE | 2022-05-01 16:22 | NUR ---
Patient yelling at RN that she needs a shower. RN explained that she is unable to give her a shower today, but would take her tomorrow. Patient upset and called RN a "slut". Patient eventually calmed down. Continue to monitor.
[2022-05-01] MEDS: quetiapine fumarate ER 300mg tablet PO SCH (16:35)
--- NOTE | 2022-05-01 17:36 | NUR ---
Patient crying for food and states we are starving her to . Patient ate a PB&J with chips and juice 2 hours ago. "What does food taste like?". RN and tech explained to patient that her dinner will come in about 20 minutes. "You're starving me to !". Continue to monitor.
--- NOTE | 2022-05-01 19:20 | NUR ---
The patient ate her dinner and was assisted with getting cleaned up and using the bathroom by fiber technician. She currently is calm and sitting by her bed going through her magazines. She was asked if she knew where she was at and she replied, "mental health?" and she stated that she was in the ER but in the section for mental health patients. She was unsure of the month or time of day and was reoriented.
[2022-05-01] MEDS: divalproex sod 250mg ER (24-hour) tablet PO SCH (20:00)
[2022-05-01] MEDS: montelukast 10mg tablet PO SCH (20:00)
[2022-05-01] MEDS: polyethylene glycol 3350 17gm powd pack PO SCH (20:00)
[2022-05-01] MEDS: lamoTRIgine 100mg tablet PO SCH (20:01)
[2022-05-01] MEDS: docusate sod 250mg capsule PO SCH (20:01)
[2022-05-01] MEDS: fluvoxamine 25 MG tablet PO SCH (20:01)
--- NOTE | 2022-05-01 21:45 | NUR ---
The patient is up and wandering around the unit
--- NOTE | 2022-05-01 23:58 | NUR ---
The patient appears to be sleeping
--- NOTE | 2022-05-02 01:33 | NUR ---
The patient appears to be sleeping
--- NOTE | 2022-05-02 02:57 | NUR ---
The patient appears to be sleeping
--- NOTE | 2022-05-02 05:01 | NUR ---
The patient is awake and wanting to eat. Snack given
--- NOTE | 2022-05-02 06:38 | NUR ---
Patient awake and sitting in her recliner. Patient keeps getting up and walking around. Patient attempted to walk out by the E.D. offices but was blocke by Tech standing at curtain. Patient walked back and sat in her recliner. Continue to monitor.
[2022-05-02] MEDS: acetaminophen w/codeine (30MG) #3 tablet PO PRN ×2 (07:16→16:10)
[2022-05-02] MEDS: ascorbic acid 500mg tablet PO SCH ×2 (07:27→20:12)
[2022-05-02] MEDS: sennosides 8.6mg tablet PO SCH ×2 (07:27→20:11)
[2022-05-02] MEDS: atorvastatin 10mg tablet PO SCH (07:27)
[2022-05-02] MEDS: lactobacillus rhamnosus 10,000 MMU CELLS/CAPSULE PO SCH (07:28)
[2022-05-02] MEDS: nicotine 7mg patch - 24hr TD SCH (07:28)
[2022-05-02] MEDS: multivitamins, therapeutics tablet PO SCH (07:28)
[2022-05-02] MEDS: JUVEN Shake w/Arg/Glut/Ca2+Bmb (Juven 19.3gm) pkt 240ml PO SCH ×3 (07:28→18:04)
[2022-05-02] MEDS: ziprasidone 20mg capsule PO SCH ×2 (07:28→20:11)
[2022-05-02] MEDS: ferrous sulfate 325mg tablet PO SCH ×2 (07:28→20:12)
[2022-05-02] MEDS: vortioxetine HBr tablet 5 MG TABLET PO SCH ×2 (07:28→20:11)
--- NOTE | 2022-05-02 08:10 | NUR ---
Patient sitting in her recliner and eating her breakfast. No distress observed at this time. Patient did remove her bandage that was placed last night. Continue to monitor.
--- NOTE | 2022-05-02 09:34 | NUR ---
Patient has been consistently asking for a shower. RN explains to patient that she will take the patient when things calm down in the department. Patient attempting to get clothes out of the cabinets. This morning she pulled down some clothes from the cabinet and they fell in the wet sink. Continue to monitor.
--- NOTE | 2022-05-02 10:06 | NUR ---
Patient took off her bandage and was scratching her growth until it bled. RN cleaned patient up. RN will take patient to shower this morning. Continue to monitor.
--- NOTE | 2022-05-02 11:09 | NUR ---
Patient washed up in the BR and washed her hair in the sink. RN gave her clean scrubs to wear. Patient was happy and no longer requesting a shower. Continue to monitor.
--- NOTE | 2022-05-02 12:05 | NUR ---
Patient sitting down eating lunch. No distress observed. Continue to monitor.
--- NOTE | 2022-05-02 13:58 | NUR ---
Patient wandering around the unit asking for her purse (we don't have her purse and RN has repeatedly advised the patient this.) Patient does not retain things she doesn't want to hear. Continue to monitor.
--- NOTE | 2022-05-02 15:05 | NUR ---
Patient ambulatory to BR without any assistive device. Continue to monitor.
[2022-05-02] MEDS: quetiapine fumarate ER 300mg tablet PO SCH (16:09)
--- NOTE | 2022-05-02 16:20 | NUR ---
Patient getting upset about a box of books patient believes is in a back room for her. RN advised patient that the only books are in her room. Patient keeps attempting to leave. Continue to monitor.
--- NOTE | 2022-05-02 17:11 | NUR ---
Patient eating dinner. No distress observed. Continue to monitor.
--- NOTE | 2022-05-02 18:45 | NUR ---
The patient was agitated at change of shift and repeatedly trying to leave the unit to go downstairs because "They're choking someone down there!" She was one to one with staff for redirection and safety.
[2022-05-02] MEDS: polyethylene glycol 3350 17gm powd pack PO SCH (20:10)
[2022-05-02] MEDS: fluvoxamine 25 MG tablet PO SCH (20:11)
[2022-05-02] MEDS: divalproex sod 250mg ER (24-hour) tablet PO SCH (20:11)
[2022-05-02] MEDS: docusate sod 250mg capsule PO SCH (20:11)
[2022-05-02] MEDS: montelukast 10mg tablet PO SCH (20:11)
[2022-05-02] MEDS: lamoTRIgine 100mg tablet PO SCH (20:11)
--- NOTE | 2022-05-02 20:30 | NUR ---
The patient is calm. She took all of her HS medications and had an evening snack. computer system technician reapplied dressing to the left side of her face.
--- NOTE | 2022-05-02 21:58 | NUR ---
The patient has been awake and agitated. She attempted to leave the unit and was redirected.
--- NOTE | 2022-05-02 23:57 | NUR ---
The patient appears to be sleeping
--- NOTE | 2022-05-03 00:48 | NUR ---
The patient up and wandering around
--- NOTE | 2022-05-03 02:41 | NUR ---
The patient has been awake off and on
--- NOTE | 2022-05-03 05:04 | NUR ---
The patient has been awake frequently during the night. She is currently sitting her chair and eating a sandwich. She is calm and pleasant
--- NOTE | 2022-05-03 06:33 | NUR ---
Patient up and drinking decaf. Patient demanding a shower. RN advised patient that she will take her to the shower later in the morning. Patient sits in her recliner for a few minutes and then gets up and wanders. Continue to monitor.
--- NOTE | 2022-05-03 07:25 | NUR ---
It is quiet in ED OF. RN took patient to the shower. Patient showers herself. Patient in no distress. Continue to monitor.
--- NOTE | 2022-05-03 07:39 | NUR ---
Patient ran out the hallway close to the [facility] caught patient. Patient yelling she needs to see the doctor. RN asked patient why but patient kept asking. Security walked patient back to her room. Continue to monitor.
[2022-05-03] MEDS: nicotine 7mg patch - 24hr TD SCH (07:53)
[2022-05-03] MEDS: atorvastatin 10mg tablet PO SCH (07:53)
[2022-05-03] MEDS: ferrous sulfate 325mg tablet PO SCH ×2 (07:54→19:05)
[2022-05-03] MEDS: JUVEN Shake w/Arg/Glut/Ca2+Bmb (Juven 19.3gm) pkt 240ml PO SCH ×3 (07:54→17:54)
[2022-05-03] MEDS: lactobacillus rhamnosus 10,000 MMU CELLS/CAPSULE PO SCH (07:54)
[2022-05-03] MEDS: sennosides 8.6mg tablet PO SCH ×2 (07:54→19:05)
[2022-05-03] MEDS: vortioxetine HBr tablet 5 MG TABLET PO SCH ×2 (07:54→20:10)
[2022-05-03] MEDS: ascorbic acid 500mg tablet PO SCH ×2 (07:54→19:05)
[2022-05-03] MEDS: multivitamins, therapeutics tablet PO SCH (07:54)
[2022-05-03] MEDS: ziprasidone 20mg capsule PO SCH ×2 (07:54→19:06)
--- NOTE | 2022-05-03 08:11 | NUR ---
Patient eating breakfast. No distress observed. Continue to monitor.
[2022-05-03] MEDS: acetaminophen w/codeine (30MG) #3 tablet PO PRN ×2 (09:14→19:05)
--- NOTE | 2022-05-03 10:03 | NUR ---
Patient up and down and wandering the unit. Patient smiles when spoken to. No distress observed at this time. Continue to monitor.
--- NOTE | 2022-05-03 12:03 | NUR ---
Patient eating lunch. No distress observed. Continue to monitor.
--- NOTE | 2022-05-03 14:00 | NUR ---
Patient sitting in recliner for several minutes. Patient is up and active. No distress observed. Continue to monitor.
--- NOTE | 2022-05-03 15:50 | NUR ---
Patient given coffee. Patient has been smiling and laughing all day when chatting with staff. No distress observed. Continue to monitor.
[2022-05-03] MEDS: quetiapine fumarate ER 300mg tablet PO SCH (17:06)
--- NOTE | 2022-05-03 17:23 | NUR ---
Patient eating dinner. No distress observed. Continue to monitor.
[2022-05-03] MEDS: polyethylene glycol 3350 17gm powd pack PO SCH (19:05)
[2022-05-03] MEDS: fluvoxamine 25 MG tablet PO SCH (19:05)
[2022-05-03] MEDS: montelukast 10mg tablet PO SCH (19:06)
[2022-05-03] MEDS: LORazepam 1 MG tablet PO PRN (19:06)
[2022-05-03] MEDS: divalproex sod 250mg ER (24-hour) tablet PO SCH (19:06)
[2022-05-03] MEDS: lamoTRIgine 100mg tablet PO SCH (19:06)
[2022-05-03] MEDS: docusate sod 250mg capsule PO SCH (19:06)
[2022-05-03] MEDS: bacitracin 15gm ointment TP SCH (19:16)
--- NOTE | 2022-05-03 19:18 | NUR ---
The patient became agitated at the change of shift and has eloped from the unit twice. She is fixated on going to the parking lot to meet ray who is not there. Spoke with Balaji MARIA and she stated okay to give HS medications at this time.
--- NOTE | 2022-05-03 20:33 | NUR ---
The patient is calm, sitting in her chair and watching tv
--- NOTE | 2022-05-03 22:08 | NUR ---
The patient appears to be sleeping
--- NOTE | 2022-05-03 23:26 | NUR ---
The patient appears to be sleeping
--- NOTE | 2022-05-04 01:01 | NUR ---
The appears to be sleeping
[2022-05-04] MEDS ORDERED: LORazepam 2 mg/ml vial IM ONE ×2 (01:20→02:05)
--- NOTE | 2022-05-04 01:38 | NUR ---
The patient awakened in an extremely agitated state and trying to leave the unit. She was unable to follow safety instructions. She was unable to stay by her bed when a large agitated peer was treatening. IM ativan given and patient placed on one to one.
[2022-05-04] MEDS ORDERED: LORazepam 2 mg/ml vial ONE (01:52)
--- NOTE | 2022-05-04 02:05 | NUR ---
The patient remains agitated and screaming "get me my bag!" over and over again. She attempted to strike staff member.
--- NOTE | 2022-05-04 02:45 | NUR ---
The patient agitated and screaming that she wants her puse.
--- NOTE | 2022-05-04 05:20 | NUR ---
The patient is awake and uncooperative but not agitated
--- NOTE | 2022-05-04 05:27 | NUR ---
The patient is agitated. She attempted to elope from the unit.
[2022-05-04] MEDS: lactobacillus rhamnosus 10,000 MMU CELLS/CAPSULE PO SCH (07:09)
[2022-05-04] MEDS: atorvastatin 10mg tablet PO SCH (07:09)
[2022-05-04] MEDS: ferrous sulfate 325mg tablet PO SCH ×2 (07:09→20:15)
[2022-05-04] MEDS: vortioxetine HBr tablet 5 MG TABLET PO SCH ×2 (07:09→20:15)
[2022-05-04] MEDS: multivitamins, therapeutics tablet PO SCH (07:09)
[2022-05-04] MEDS: sennosides 8.6mg tablet PO SCH ×2 (07:09→20:17)
[2022-05-04] MEDS: ziprasidone 20mg capsule PO SCH ×2 (07:09→20:18)
[2022-05-04] MEDS: nicotine 7mg patch - 24hr TD SCH (07:10)
[2022-05-04] MEDS: ascorbic acid 500mg tablet PO SCH ×2 (07:10→20:16)
[2022-05-04] MEDS: LORazepam 1 MG tablet PO PRN ×3 (07:10→15:58)
--- NOTE | 2022-05-04 07:30 | NUR ---
Pt/ awake yelling, swing her walker, presents as agitated and paranoid, PRN Ativan administered.
[2022-05-04] MEDS: JUVEN Shake w/Arg/Glut/Ca2+Bmb (Juven 19.3gm) pkt 240ml PO SCH ×3 (08:09→18:26)
[2022-05-04] MEDS: bacitracin 15gm ointment TP SCH ×2 (08:09→20:16)
--- NOTE | 2022-05-04 08:16 | NUR ---
Agree with [facility] charting ~ TANYA Kendrick
--- NOTE | 2022-05-04 09:27 | NUR ---
Pt. yelling, dumped milk on her pants, refuses to change clothes, agitated and aggressive.
--- NOTE | 2022-05-04 10:44 | NUR ---
Pt. awake and eating, no s/sx distress, presents as calm.
--- NOTE | 2022-05-04 11:30 | NUR ---
Pt. yelling, attempting to enter other beds, and lowered herself to the floor. Redirection attempted several times, but pt. presents with increased agitation and is not cooperative. PRN Ativan given, pt. takes medication without hesitancy.
--- NOTE | 2022-05-04 12:30 | NUR ---
Pt. yelling at staff while sitting in the chair next to her bed.
--- NOTE | 2022-05-04 14:04 | NUR ---
Pt. sleeping in recliner, no s/sx of distress.
--- NOTE | 2022-05-04 15:10 | NUR ---
Pt. up yelling, attempting to grab things out of cabnets, non compliant with redirection.
[2022-05-04] MEDS: quetiapine fumarate ER 300mg tablet PO SCH (15:58)
--- NOTE | 2022-05-04 17:24 | NUR ---
Pt. OOB and ambulating on the unit, yelling "In dont live here, I want to go" She is demanding lunch that she already recieved. Pt. provided snacks.
--- NOTE | 2022-05-04 18:38 | NUR ---
Patient has ambulated back and forth on the unit using her walker. She mumbles and is difficult to understand. She gets angry.
--- NOTE | 2022-05-04 19:36 | NUR ---
Patient has become labile at times, sometimes delusional. She beleives her son is behind one of the overflow doors. Staff has been able to redirect patient with much effort so far.
[2022-05-04] MEDS: polyethylene glycol 3350 17gm powd pack PO SCH (20:10)
[2022-05-04] MEDS: fluvoxamine 25 MG tablet PO SCH (20:13)
[2022-05-04] MEDS: acetaminophen w/codeine (30MG) #3 tablet PO PRN (20:14)
[2022-05-04] MEDS: divalproex sod 250mg ER (24-hour) tablet PO SCH (20:16)
[2022-05-04] MEDS: lamoTRIgine 100mg tablet PO SCH (20:17)
[2022-05-04] MEDS: docusate sod 250mg capsule PO SCH (20:17)
--- NOTE | 2022-05-04 20:54 | NUR ---
Patient has been redirected many times. She was compliant with taking medications. Patient was given snacks.
--- NOTE | 2022-05-04 21:01 | NUR ---
Patient is sitting in her chair. She is grooming herself, redoing her own ponytail.
--- NOTE | 2022-05-04 21:11 | NUR ---
Patient is out of her chair, labile and yelling. She was able to be redirected back to her chair.
[2022-05-04] MEDS: montelukast 10mg tablet PO SCH (21:25)
--- NOTE | 2022-05-04 22:08 | NUR ---
Patient is sleeping upright in her chair. In direct view from nurses station.
--- NOTE | 2022-05-04 23:08 | NUR ---
Patient is sitting upright in her chair sleeping. Patient had previously refused to return to her bed.
--- NOTE | 2022-05-04 23:41 | NUR ---
Patient remains sleeping in her chair. She has self repositioned.
--- NOTE | 2022-05-05 01:30 | NUR ---
Patient is up to the bathroom. She voids and was redirected back to her chair. Patient is refusing to rest in her bed.
--- NOTE | 2022-05-05 02:44 | NUR ---
Patient is awake and sitting in her chair. She is labile at times but can be redirected.
--- NOTE | 2022-05-05 04:02 | NUR ---
Patient is awake, to bathroom to void. Patient is demanding and yelling.
--- NOTE | 2022-05-05 04:49 | NUR ---
Patient is sleeping quietly in a mid fowlers position in her chair.
--- NOTE | 2022-05-05 06:44 | NUR ---
Received pt. awake and yelling out for food at the beginning of the shift. Pt. had several snacks available to her on her table and per Noc shift, she had received snacks through the night. Pt. was able to be verbally redirected, will continue to monitor closely.
[2022-05-05] MEDS: nicotine 7mg patch - 24hr TD SCH (07:05)
[2022-05-05] MEDS: ziprasidone 20mg capsule PO SCH ×2 (07:06→18:39)
[2022-05-05] MEDS: ferrous sulfate 325mg tablet PO SCH ×2 (07:06→22:05)
[2022-05-05] MEDS: lactobacillus rhamnosus 10,000 MMU CELLS/CAPSULE PO SCH (07:06)
[2022-05-05] MEDS: sennosides 8.6mg tablet PO SCH ×2 (07:06→21:58)
[2022-05-05] MEDS: multivitamins, therapeutics tablet PO SCH (07:06)
[2022-05-05] MEDS: atorvastatin 10mg tablet PO SCH (07:06)
[2022-05-05] MEDS: ascorbic acid 500mg tablet PO SCH ×2 (07:06→22:05)
[2022-05-05] MEDS: LORazepam 1 MG tablet PO PRN ×3 (07:07→18:14)
[2022-05-05] MEDS: vortioxetine HBr tablet 5 MG TABLET PO SCH ×2 (07:07→21:58)
--- NOTE | 2022-05-05 07:25 | NUR ---
Pt. continued to yell out at intervals and was unable to be redirected. She also attempted to enter the back hallway of the unit multiple times and became somewhat agressive towards staff AEB swinging her walker. PRN Ativan was administered and will continue to monitor pt. closely.
[2022-05-05] MEDS: bacitracin 15gm ointment TP SCH ×2 (07:49→20:00)
--- NOTE | 2022-05-05 08:06 | NUR ---
Dietary called and they will be sending double protein with each meal for patient along with extra foods such as shakes, yogurt, and cottage cheese. They also changed pt's Juvin supplement to BID. Addendum: 05/05/22 at 0812 by WILY Pt. did receive Juvin Supplement this AM and consumed 100%.
--- NOTE | 2022-05-05 08:39 | NUR ---
Pt. up to use the bathroom, she was able to change her clothing independently.
--- NOTE | 2022-05-05 10:45 | NUR ---
Pt. again reported feeling hungry and was provided with a snack.
--- NOTE | 2022-05-05 12:07 | NUR ---
Pt. was oberved to be wandering restlessly and exhibiting exit seeking behaviors AEB repeately trying to go out the front curtain requiring redirection from staff. PRN Ativan was administered, will continue to monitor pt. closely.
--- NOTE | 2022-05-05 14:30 | NUR ---
Pt. is up to use the bathroom at this time with use of FWW.
[2022-05-05] MEDS: quetiapine fumarate ER 300mg tablet PO SCH (15:04)
[2022-05-05] MEDS: acetaminophen w/codeine (30MG) #3 tablet PO PRN (15:05)
--- NOTE | 2022-05-05 16:19 | NUR ---
Pt. was again wandering the unit, however was able to be redirected back to her room by staff.
[2022-05-05] MEDS: JUVEN Shake w/Arg/Glut/Ca2+Bmb (Juven 19.3gm) pkt 240ml PO SCH (17:52)
--- NOTE | 2022-05-05 17:54 | NUR ---
Pt. is sitting up eating dinner in chair at bedside at this time.
--- NOTE | 2022-05-05 18:14 | NUR ---
Pt. yelling out loudly demanding to leave and attempted to elope. Staff redirected pt. back to her room and PRN Ativan was administered. Will continue to monitor closely.
[2022-05-05] MEDS ORDERED: ziprasidone IM 20mg inj **IM only IM ONE (18:40)
--- NOTE | 2022-05-05 18:53 | NUR ---
This patient has continued to escalate, she has attempted to elope twice since shift change. Patient yells profanities and pushes away from staff. This senior mortgage underwriter consulted with PA, IM Geodon 20 mg was ordered IM and it was given. The nightime dose of PO Geodon will be held.
--- NOTE | 2022-05-05 19:15 | NUR ---
Patient has 2 plus pitting edema to ankles and feet. A ED provider will be notified. Both lower legs are tender to palpation.
--- NOTE | 2022-05-05 20:16 | NUR ---
Dr. Awad advised of patients lower extrimity edema. He will eval tonight.
--- NOTE | 2022-05-05 20:16 | NUR ---
Patient is sleeping quietly in a low fowlers position in her chair.
[2022-05-05] MEDS: polyethylene glycol 3350 17gm powd pack PO SCH (21:00)
--- NOTE | 2022-05-05 21:18 | NUR ---
Patient continues to sleep quietly. In view from nurses station. Good color, regular resp.
[2022-05-05] MEDS: montelukast 10mg tablet PO SCH (21:58)
[2022-05-05] MEDS: docusate sod 250mg capsule PO SCH (21:58)
[2022-05-05] MEDS: fluvoxamine 25 MG tablet PO SCH (21:58)
[2022-05-05] MEDS: divalproex sod 250mg ER (24-hour) tablet PO SCH (21:59)
[2022-05-05] MEDS: lamoTRIgine 100mg tablet PO SCH (21:59)
--- NOTE | 2022-05-05 22:33 | NUR ---
Patient awoke, became agitated. She thought it was afternoon time. Patient wanted to exit the building. She was redirected to her chair. She complied with her night medications. Patient at [facility]. This screenplay writer washed her face. Isamar fell back asleep, low fowlers in her chair.
--- NOTE | 2022-05-05 23:58 | NUR ---
Patient is sleeping quietly, mid fowlers position. In direct view from nurses station.
--- NOTE | 2022-05-06 01:10 | NUR ---
Patient is sleeping in her chair in a mid fowlers position.
--- NOTE | 2022-05-06 03:00 | NUR ---
Patient up to bathroom. She then returned to her recliner and then sleep.
--- NOTE | 2022-05-06 04:08 | NUR ---
Patient is sitting quietly, awake in her chair. She is drinking juice.
--- NOTE | 2022-05-06 04:29 | NUR ---
Patient was up for a clothing change, face and hand wash. She also ate crackers.
--- NOTE | 2022-05-06 06:30 | NUR ---
Pt awake sitting in her chair. Pt calm/cooperative.
[2022-05-06] MEDS: JUVEN Shake w/Arg/Glut/Ca2+Bmb (Juven 19.3gm) pkt 240ml PO SCH ×3 (07:30→19:56)
--- NOTE | 2022-05-06 07:55 | NUR ---
Pt has bilateral LE edema with 2+ pitting. Pt c/o of pain on touch, both LE's warm. Dr. Jacobson notified. She ordered labs and UA.
--- NOTE | 2022-05-06 08:30 | NUR ---
Pt compliant with medication. Pt ate 100% of her meal. Pt is social with staff, up to nurses station. Pt given coffee.
[2022-05-06] MEDS: nicotine 7mg patch - 24hr TD SCH (08:53)
[2022-05-06] MEDS: ziprasidone 20mg capsule PO SCH ×3 (08:54→20:28)
[2022-05-06] MEDS: acetaminophen w/codeine (30MG) #3 tablet PO PRN ×2 (08:54→19:56)
[2022-05-06] MEDS: ferrous sulfate 325mg tablet PO SCH ×2 (08:55→19:54)
[2022-05-06] MEDS: atorvastatin 10mg tablet PO SCH (08:55)
[2022-05-06] MEDS: lactobacillus rhamnosus 10,000 MMU CELLS/CAPSULE PO SCH ×2 (08:55→19:54)
[2022-05-06] MEDS: multivitamins, therapeutics tablet PO SCH (08:55)
[2022-05-06] MEDS: sennosides 8.6mg tablet PO SCH ×2 (08:55→19:54)
[2022-05-06] MEDS: bacitracin 15gm ointment TP SCH ×2 (08:55→19:54)
[2022-05-06] MEDS: ascorbic acid 500mg tablet PO SCH ×2 (08:56→19:54)
[2022-05-06] MEDS: vortioxetine HBr tablet 5 MG TABLET PO SCH ×2 (09:08→19:54)
[2022-05-06 09:22] LABS: CLARITY,URINE CLOUDY (Clear); COLOR,URINE YELLOW (Yellow); GLUCOSE, URINE NEGATIVE (Neg); KETONES,URINE NEGATIVE (Neg); LEUKOCYTE ESTERASE ,URINE NEGATIVE (Neg); NITRITES, URINE NEGATIVE (Neg); OCCULT BLOOD,URINE NEGATIVE (Neg); PROTEIN,URINE NEGATIVE (Neg); UROBILINOGEN,URINE 0.2 E.U/dL (0.2-1.0)
[2022-05-06 09:27] LABS: UA COLLECTION TYPE VOIDED
[2022-05-06 09:28] LABS: SQUAMOUS EPITHELIAL CELL,UR FEW /LPF (FEW)
[2022-05-06 09:30] LABS: BACTERIA,URINE FEW /HPF (Neg); RBC,URINE 0-2 /HPF (0-2); WBC,URINE 0-4 /HPF (0-4)
[2022-05-06 09:31] LABS: AMORPHOUS PHOSPHATES 2+
[2022-05-06 09:32] LABS: MUCUS STRANDS FEW /LPF (Neg)
[2022-05-06 10:08] LABS: BASOPHILS % (AUTO) 0.6 % (0-1); EOSINOPHILS # (AUTO) 0.1 X10'3 (0-0.9); EOSINOPHILS % (AUTO) 2.3 % (0-6); HEMOGLOBIN 11.4 g/dl (12.0-16.0); LYMPHOCYTES # (AUTO) 1.2 X10'3 (1.1-4.8); MEAN CORPUSCULAR HEMOGLOBIN 30.4 PG (27.0-31.0); MEAN CORPUSCULAR HGB CONC 32.6 g/dL (33.0-36.5); MEAN CORPUSCULAR VOLUME 93.1 FL (78-98); MONOCYTES # (AUTO) 0.4 X10'3 (0-0.9); MONOCYTES % (AUTO) 8.5 % (2-12); NEUTROPHILS % (AUTO) 62.6 % (42-75); PLATELET COUNT 183 X10'3 (140-440); RED BLOOD COUNT 3.76 X10'6 (4.20-5.60); RED CELL DISTRIBUTION WIDTH 14.1 % (11.5-14.5); WHITE BLOOD COUNT 4.8 X10'3 (4.5-11.0)
[2022-05-06 10:23] LABS: ALANINE AMINOTRANSFERASE 37 U/L (12-78); ALBUMIN 3.5 G/DL (3.4-5.0); ALBUMIN/GLOBULIN RATIO 1.1 (1.1-1.5); ALKALINE PHOSPHATASE 60 IU/L (46-116); ASPARTATE AMINO TRANSFERASE 20 U/L (10-37); BILIRUBIN,TOTAL 0.2 MG/DL (0.1-1.0); BLOOD UREA NITROGEN 33 MG/DL (7-18); CALCIUM 8.8 MG/DL (8.5-10.1); GLUCOSE 108 MG/DL (70-104); POTASSIUM 4.2 MMOL/L (3.5-5.1); SODIUM 138 MMOL/L (135-145); TOTAL CARBON DIOXIDE 33.8 MMOL/L (24-32); TOTAL PROTEIN 6.8 G/DL (6.4-8.2)
[2022-05-06 10:30] LABS: ANION GAP 2 (8-16); BUN/CREATININE RATIO 55.9 (6.6-38.0); CHLORIDE 102 MMOL/L (99-107); CREATININE 0.59 MG/DL (0.40-0.90); eGFR > 90 ML/MIN
--- NOTE | 2022-05-06 10:30 | NUR ---
Pt ambulates unit, requires some redirection. Pt went for the exit when asked to come back pt smiled and said "I was seeing how far I could get." Pt enjoys her snacks.
--- NOTE | 2022-05-06 12:30 | NUR ---
Pt up in chair eating lunch. No behaviors. Pt has been calm .
--- NOTE | 2022-05-06 14:12 | NUR ---
Pt sitting up in chair watching T.V.
--- NOTE | 2022-05-06 15:31 | NUR ---
Patient has gone to clothing cupboard multiple times pulling out scrubs. pt has been given two clean scrub tops today, but continues to want to change. Pt has a difficult time keeping food off the front of her shirt. Waiting for EVS to send up clean scrub bottoms. Pt is irriated because the shirt she pulled down from cupboard is to small. Trying to reason with patient is difficult at times.
[2022-05-06] MEDS: quetiapine fumarate ER 300mg tablet PO SCH (15:56)
--- NOTE | 2022-05-06 16:00 | NUR ---
Pt's bilateral LE's have increased erythema and swelling since this morning, both look shiney and warm to the touch. Dr. Rodriguez assessed and ordered Septra DS x7 days. Now dose given.
[2022-05-06] MEDS ORDERED: sulfamethoxazole/trimethoprim DS (800/160mg) tablet PO ONE (16:05)
--- NOTE | 2022-05-06 18:41 | NUR ---
Patient was showered. She ambulates with a walker. Facial dressing has been changed. Patient is reasonably cooperative at this time.
--- NOTE | 2022-05-06 19:33 | NUR ---
Patient is starting to escalate in her behavior, she attempts to elope, she has been redirected multiple times now.
[2022-05-06] MEDS ORDERED: ziprasidone IM 20mg inj **IM only IM ONE (19:35)
[2022-05-06] MEDS: LORazepam 1 MG tablet PO PRN (19:55)
--- NOTE | 2022-05-06 19:58 | NUR ---
Patient is calming some. VAMSHI Monroe will be held to see how patient progresses. She is now sitting down in her chair. She is compliant with PO medications, a Tylenol #3 was given for leg pain. Ativan 2 mg was given a short time ago for anxiety and restlessness.
[2022-05-06] MEDS: montelukast 10mg tablet PO SCH (20:28)
[2022-05-06] MEDS: divalproex sod 250mg ER (24-hour) tablet PO SCH (20:29)
[2022-05-06] MEDS: lamoTRIgine 100mg tablet PO SCH (20:29)
[2022-05-06] MEDS: polyethylene glycol 3350 17gm powd pack PO SCH (21:00)
[2022-05-06] MEDS: docusate sod 250mg capsule PO SCH (21:00)
[2022-05-06] MEDS: fluvoxamine 25 MG tablet PO SCH (21:00)
--- NOTE | 2022-05-06 22:53 | NUR ---
Patient is now asleep. Mid fowlers position in her recliner. No distress.
[2022-05-06] MEDS ORDERED: diphenhydrAMINE 50 mg/ml inj IM ONE (23:40)
[2022-05-06] MEDS ORDERED: LORazepam 2 mg/ml vial IM ONE (23:40)
--- NOTE | 2022-05-07 | NUR ---
Patient attempted to leave the unit, yelling and screaming with delusional behavior. IM Ativan 2mg and IM Benadryl 50 mg given.
--- NOTE | 2022-05-07 02:11 | NUR ---
Patient is sleeping quietly in her chair. No distress.
--- NOTE | 2022-05-07 03:37 | NUR ---
Patient is awake, she responds to internal stimuli. Patient attempts multiple times to get up and leave. She is redirected back to her chair, time after time.
--- NOTE | 2022-05-07 04:40 | NUR ---
Patient remains awake. She is calmer now. Patient was given fresh water.
--- NOTE | 2022-05-07 05:12 | NUR ---
Patient is sleeping in a high fowlers position in her chair.
--- NOTE | 2022-05-07 05:53 | NUR ---
Patient up to bathroom using her walker.
[2022-05-07] MEDS: ascorbic acid 500mg tablet PO SCH ×2 (07:35→19:31)
[2022-05-07] MEDS: vortioxetine HBr tablet 5 MG TABLET PO SCH ×2 (07:36→19:10)
[2022-05-07] MEDS: ferrous sulfate 325mg tablet PO SCH ×2 (07:36→19:11)
[2022-05-07] MEDS: lactobacillus rhamnosus 10,000 MMU CELLS/CAPSULE PO SCH ×2 (07:36→19:10)
[2022-05-07] MEDS: sennosides 8.6mg tablet PO SCH ×2 (07:36→19:10)
[2022-05-07] MEDS: ziprasidone 20mg capsule PO SCH ×2 (07:36→19:10)
[2022-05-07] MEDS: multivitamins, therapeutics tablet PO SCH (07:36)
[2022-05-07] MEDS: atorvastatin 10mg tablet PO SCH (07:36)
[2022-05-07] MEDS: nicotine 7mg patch - 24hr TD SCH (07:46)
[2022-05-07] MEDS: JUVEN Shake w/Arg/Glut/Ca2+Bmb (Juven 19.3gm) pkt 240ml PO SCH ×2 (07:56→17:42)
[2022-05-07] MEDS: bacitracin 15gm ointment TP SCH ×2 (08:00→19:10)
--- NOTE | 2022-05-07 08:00 | NUR ---
Pt. awake and eating breakfast in her chair.
--- NOTE | 2022-05-07 10:00 | NUR ---
Pt. awake and pacing floor with her walker. Pt. attempting to leave overflow area and must be redirected multiple times. Pt. delusional, stating, "Maximus is out there waiting for me", pt. unable to be reoriented. Physical assessment done at bedside.
[2022-05-07] MEDS: LORazepam 1 MG tablet PO PRN ×2 (10:55→15:29)
--- NOTE | 2022-05-07 11:00 | NUR ---
Pt. c/o generalized pain. Pt. given Tylenol with codeine for c/o pain rated 9/10. Pt. also given Ativan 2mg for restlessness and agitation.
[2022-05-07] MEDS: acetaminophen w/codeine (30MG) #3 tablet PO PRN (11:35)
--- NOTE | 2022-05-07 13:45 | NUR ---
Pt. eloped briefly, found walking down to the lab. Pt. cooperative and returned with security.
--- NOTE | 2022-05-07 15:00 | NUR ---
Pt. is tearful, when RN attempted to assess what pt. is crying about pt. mumbles somthing incoherent.
[2022-05-07] MEDS: quetiapine fumarate ER 300mg tablet PO SCH (15:29)
--- NOTE | 2022-05-07 15:45 | NUR ---
Pt. continues to cry. RN gave pt. PRN ativan 2mg along with scheduled Seroquel.
--- NOTE | 2022-05-07 17:54 | NUR ---
Pt. is attempting to elope. Pt. needs multiple redirection. Pt. given her tray and is eating dinner in her chair.
[2022-05-07] MEDS ORDERED: nicotine 7mg patch - 24hr TD ONE (18:30)
--- NOTE | 2022-05-07 18:32 | NUR ---
Pt is pacing with fww at change of shift. Pt is screaming and stating she wants to smoke and her son is out in the lobby. Pt is redirected multiple times. Pts nicotine patch was removed at 1000, Provider ordered second patch.
[2022-05-07] MEDS: fluvoxamine 25 MG tablet PO SCH (19:28)
[2022-05-07] MEDS: montelukast 10mg tablet PO SCH (19:29)
[2022-05-07] MEDS: polyethylene glycol 3350 17gm powd pack PO SCH (19:30)
[2022-05-07] MEDS: divalproex sod 250mg ER (24-hour) tablet PO SCH (19:30)
[2022-05-07] MEDS: lamoTRIgine 100mg tablet PO SCH (19:31)
[2022-05-07] MEDS: docusate sod 250mg capsule PO SCH (19:31)
--- NOTE | 2022-05-07 19:40 | NUR ---
Pt got up and attempted to elope past the pct Catia. Security was called and pt was assisted back to bed. Pt was cooperative with taking HS meds and got in bed and then minutes later climbed back out of bed yelling to go outside for a cigarette. Pt is perseverating on the idea that her son is in a green car in the parking lot and she wants to go outside. Pt is falling asleep while standing so she is assisted back to bed.
[2022-05-07] MEDS ORDERED: LORazepam 2 mg/ml vial IM ONE (20:05)
--- NOTE | 2022-05-07 20:20 | NUR ---
Pt was agitated and made multiple attempts to elope screaming she wants to see her son. Pt was redirected multiple times, security was called for assistance as well. Pt began punching at staff and trying to scratch them. Provider notified and Ativan IM was ordered. Pt was given IM and tolerated it well. Pt continued to be agitated and paced with fww until she sat in her chair and fell asleep.
--- NOTE | 2022-05-07 21:39 | NUR ---
Pt is sitting in her chair asleep. RR 14
--- NOTE | 2022-05-07 23:43 | NUR ---
Pt is asleep in her chair, she was refusing to get in bed earlier in the shift and repeatedly got in bed then climbed out. Pt eventually fell asleep in her chair. Pt is asleep appears to be resting comfortably.
--- NOTE | 2022-05-08 01:08 | NUR ---
Pt is asleep in her chair no s/s distress
--- NOTE | 2022-05-08 04:08 | NUR ---
pt is awake, ambulated to the toilet and had a bm. Pt changed her brief and returned to bed. Pt is eating cereal and drinking a coffee. Pt glasses were cleaned
--- NOTE | 2022-05-08 06:44 | NUR ---
Patient awake and sitting in bed. Patient getting up and down. +pitting edema to bilateral legs. Patient is probably not laying down enough. RN will speak to the doctor about getting a BNP. Continue to monitor.
--- NOTE | 2022-05-08 07:23 | NUR ---
Patient yelling and states she is tired of being a punching bag and tired of the beatings. RN explains that she is not getting beatings. "Look at my face!" RN explains again that the wounds on her face are from the cancer she has refused to get removed. Patient continues to yell that she is not being fed after getting a banana, an a bag of chips in the last 40 minutes. "You are starving me to !". Continue to monitor.
--- NOTE | 2022-05-08 07:54 | NUR ---
patient eating breakfast meal tray.
[2022-05-08] MEDS: atorvastatin 10mg tablet PO SCH (07:58)
[2022-05-08] MEDS: lactobacillus rhamnosus 10,000 MMU CELLS/CAPSULE PO SCH ×2 (07:58→19:43)
[2022-05-08] MEDS: ziprasidone 20mg capsule PO SCH ×2 (07:58→19:43)
[2022-05-08] MEDS: sennosides 8.6mg tablet PO SCH ×2 (07:58→19:43)
[2022-05-08] MEDS: vortioxetine HBr tablet 5 MG TABLET PO SCH ×2 (07:58→19:43)
[2022-05-08] MEDS: ferrous sulfate 325mg tablet PO SCH ×3 (07:58→20:00)
[2022-05-08] MEDS: ascorbic acid 500mg tablet PO SCH ×2 (07:59→19:48)
[2022-05-08] MEDS: bacitracin 15gm ointment TP SCH ×2 (07:59→19:44)
[2022-05-08] MEDS: nicotine 7mg patch - 24hr TD SCH (08:00)
[2022-05-08] MEDS: multivitamins, therapeutics tablet PO SCH (08:00)
[2022-05-08] MEDS: JUVEN Shake w/Arg/Glut/Ca2+Bmb (Juven 19.3gm) pkt 240ml PO SCH ×2 (08:00→17:40)
--- NOTE | 2022-05-08 09:46 | NUR ---
Patient going to the BR to change her top. No distress observed at this time. Continue to monitor.
--- NOTE | 2022-05-08 10:48 | NUR ---
PT GIVEN SANDWICH AND YOGURT PER REQUEST
--- NOTE | 2022-05-08 12:08 | NUR ---
Patient eating lunch. No distress observed. Continue to monitor.
--- NOTE | 2022-05-08 13:50 | NUR ---
Patrick Lala RN evaluating patient for placement and is investigating patient's medical needs. Patrick Lala RN spoke with patient and took a picture of her cheek and face. Patient smiled and tolerated well. No distress observed. Continue to monitor.
--- NOTE | 2022-05-08 15:35 | NUR ---
Patient up and down from recliner to her walker and walking around the unit. No distress observed. Continue to monitor.
[2022-05-08] MEDS: quetiapine fumarate ER 300mg tablet PO SCH (16:58)
--- NOTE | 2022-05-08 17:07 | NUR ---
Patient sitting in recliner. No distress observed. Continue to monitor.
--- NOTE | 2022-05-08 18:30 | NUR ---
Walked patient back to chair. Patient was shouting and attempting to walk behind the curtain.
[2022-05-08] MEDS: LORazepam 1 MG tablet PO PRN (19:43)
[2022-05-08] MEDS: docusate sod 250mg capsule PO SCH (19:47)
[2022-05-08] MEDS: polyethylene glycol 3350 17gm powd pack PO SCH (19:47)
[2022-05-08] MEDS: montelukast 10mg tablet PO SCH (19:48)
[2022-05-08] MEDS: fluvoxamine 25 MG tablet PO SCH (19:50)
[2022-05-08] MEDS: lamoTRIgine 100mg tablet PO SCH (19:50)
[2022-05-08] MEDS: divalproex sod 250mg ER (24-hour) tablet PO SCH (19:50)
--- NOTE | 2022-05-08 20:30 | NUR ---
RN tucked patient in and she fell asleep crying. Patient currently sleeping on left side.
[2022-05-08] MEDS: acetaminophen w/codeine (30MG) #3 tablet PO PRN (21:54)
--- NOTE | 2022-05-08 22:44 | NUR ---
Patient up. Yelling, "let me out of here. Get me away from the bad man." Patient was refering to the cereal killer. Told patient that staff looked for bad man and didn't find anyone. Antonino from security looked under bed and let her know there was no one to be found. Compromised with patient that if she wanted a snack then we'd need her to sit in her room and stop yelling. Patient restint up in chair quietly eating a cookie..
[2022-05-08] MEDS ORDERED: LORazepam 2 mg/ml vial IM ONE (23:25)
--- NOTE | 2022-05-08 23:45 | NUR ---
Patient has been up and down from chair being distruptive and yelling loudly. Received orders for Ativan 4 mg IM.
--- NOTE | 2022-05-09 00:26 | NUR ---
Patient assisted to bed, administered 4 mg IM to right gluteal. Was resistant at first then fell asleep. Will continue to monitor.
--- NOTE | 2022-05-09 01:55 | NUR ---
Patient sleeping. Will continue to monitor.
--- NOTE | 2022-05-09 04:05 | NUR ---
Patient noted to talk a little in her sleep. Continues to rest well. No s/sx of distress. No needs noted at this time.
--- NOTE | 2022-05-09 05:20 | NUR ---
Patient awoke, up to BR. Changed her depend. Ask for and given a bag of chips. Patient up in chair now eating chips.
--- NOTE | 2022-05-09 06:40 | NUR ---
Patient up and walking after taking a 30 minute nap. Continue to monitor.
--- NOTE | 2022-05-09 07:18 | NUR ---
RN took patient to shower this morning. She was slower than usual walking and needed a little assistance getting dressed. Patient did shower without assistance. Patient stated she didn't want to go back to her room but she did walk back. Continue to monitor.
[2022-05-09] MEDS: lactobacillus rhamnosus 10,000 MMU CELLS/CAPSULE PO SCH ×2 (08:04→20:06)
[2022-05-09] MEDS: sennosides 8.6mg tablet PO SCH ×2 (08:04→20:07)
[2022-05-09] MEDS: vortioxetine HBr tablet 5 MG TABLET PO SCH ×2 (08:04→20:07)
[2022-05-09] MEDS: atorvastatin 10mg tablet PO SCH (08:04)
[2022-05-09] MEDS: ferrous sulfate 325mg tablet PO SCH ×2 (08:04→20:06)
[2022-05-09] MEDS: ziprasidone 20mg capsule PO SCH ×2 (08:04→20:07)
[2022-05-09] MEDS: ascorbic acid 500mg tablet PO SCH ×2 (08:05→20:13)
[2022-05-09] MEDS: multivitamins, therapeutics tablet PO SCH (08:06)
[2022-05-09] MEDS: JUVEN Shake w/Arg/Glut/Ca2+Bmb (Juven 19.3gm) pkt 240ml PO SCH ×2 (08:06→18:41)
[2022-05-09] MEDS: nicotine 7mg patch - 24hr TD SCH (08:06)
[2022-05-09] MEDS: bacitracin 15gm ointment TP SCH ×2 (08:09→20:07)
--- NOTE | 2022-05-09 08:16 | NUR ---
Patient eating breakfast. No distress observed. Continue to monitor.
--- NOTE | 2022-05-09 10:05 | NUR ---
Patient continues to sleep in her bed. Continue to monitor.
--- NOTE | 2022-05-09 10:41 | NUR ---
Patient up and eating snacks. No distress observed. Continue to monitor.
--- NOTE | 2022-05-09 12:09 | NUR ---
Patient eating lunch. No distress observed. (had been getting upset for the last 45 minutes that she was hungry and we hadn't fed her breakfast. Patient had breakfast and several snacks after breakfast. Continue to monitor.
--- NOTE | 2022-05-09 14:03 | NUR ---
Patient reading a book that her dad sent (he sent a box of new books). No distress observed. Continue to monitor.
[2022-05-09] MEDS: quetiapine fumarate ER 300mg tablet PO SCH (16:00)
--- NOTE | 2022-05-09 16:05 | NUR ---
Patient yelling from BR because she removed her gown and unable to get it back on. RN placed a clean gown on patient and walked out to the ED OF hallway with patient. Just then a "fire alarm" went off and patient was attempting to walk out of ED. The cancellation announcement went off soon after but Rosa was perseverating on the alarm she refused to believe staff. Patient eventually went slowly to the floor with RN and Tech each holding an arm. Patient cussing and yelling that we are starving her to . Patient has gained aproximately 70 lbs at her stay here at [facility], ED OF.
--- NOTE | 2022-05-09 19:08 | NUR ---
pt resting in bedside chair equal and nonlabored resp. pt reading book no verbal complaints
--- NOTE | 2022-05-09 19:45 | NUR ---
PT REFUSED WOUND CARE TO LT CHEEK
[2022-05-09] MEDS: polyethylene glycol 3350 17gm powd pack PO SCH (21:00)
[2022-05-09] MEDS: montelukast 10mg tablet PO SCH (21:00)
[2022-05-09] MEDS: lamoTRIgine 100mg tablet PO SCH (21:00)
[2022-05-09] MEDS: divalproex sod 250mg ER (24-hour) tablet PO SCH (21:00)
[2022-05-09] MEDS: fluvoxamine 25 MG tablet PO SCH (21:00)
[2022-05-09] MEDS: docusate sod 250mg capsule PO SCH (21:00)
--- NOTE | 2022-05-09 21:48 | NUR ---
2119 pt tried to leave overflow area, pt was stopped at doorway. pt proceeded to sit on the floor and start to scream. pt was escorted back to her bed with nurse and tech. 2139 pt tried to leave the overflow area out the back door next to the rear of fast track. pt was stopped at back doorway. pt immediately sat on the ground and proceeded to start screaming. pt was escorted with nurse and tech back to her room. pt now sitting in bedside chair hitting herself on the forehead with her reading book. pt hit herself a dozen times all while yelling profanities at the staff. book removed from pt area. informed, awaiting further orders.
[2022-05-09] MEDS ORDERED: LORazepam 2 mg/ml vial IM ONE (22:15)
[2022-05-09] MEDS ORDERED: haloperidol lactate 5mg/ml inj IM ONE (22:15)
[2022-05-09] MEDS ORDERED: diphenhydrAMINE 50 mg/ml inj IM ONE (22:15)
--- NOTE | 2022-05-09 22:30 | NUR ---
2200 pt ambulated with haste to front door of overflow. tech stopped pt from exiting and immediately pt sat on ground and began to scoot towards floor. pt continuously yelling i want a cigarette, i want to leave. pt education given on leaving at 10pm at night and it not being safe. pt started yelling profanities at staff. pt placed in wheelchair. tech escorted pt to outside viewing area to confirm to pt that it truly is 10pm. tech and security returned pt to bed. 2215 im meds given 2224 pt ambulated with haste to rear door of overflow to be stopped by tech. pt once again sat on floor and proceeded to yell and scream profanities at staff. 2229 pt removed herself from floor and returned to bed shouting profanities at staff.
--- NOTE | 2022-05-10 00:30 | NUR ---
pt yelling and screaming about being hungry. when food is offered pts replies " its rotten" "the fucking food is rotten, your feeding me rotten food". pt keeping getting out of bed trying to leave. pt assaulting staff by swing at staff and throwing books and small items with in grasp. pt scratching staff when being escorted back to bed. surrounding patients yelling at Mrs Cross to " shut UP and be quiet" . surrounding pts asking if there is anything that can be done because they are not getting any sleep/rest. md informed. awaiting further orders.
[2022-05-10] MEDS: LORazepam 1 MG tablet PO PRN ×4 (01:04→17:04)
--- NOTE | 2022-05-10 01:30 | NUR ---
Acquired sandwich and yogurt form other nursing unit and gave it to pt.. pt eating quietly at bedside.
--- NOTE | 2022-05-10 05:00 | NUR ---
pt awoke out of sleep and walked up to nurse station and started demanding something to eat. pt redirected towards bed and given a pudding cup.
--- NOTE | 2022-05-10 05:42 | NUR ---
pt awoke out of sleep and walked up to nurse station and started demanding something to eat. pt redirected towards bed and told breakfast will be soon. pt demanding food
--- NOTE | 2022-05-10 06:01 | NUR ---
naveed carpio . informed pt of breakfast time.
--- NOTE | 2022-05-10 06:30 | NUR ---
Pt up walking around carrying her coffee. Pt asking to go outside to smoke.
[2022-05-10] MEDS: JUVEN Shake w/Arg/Glut/Ca2+Bmb (Juven 19.3gm) pkt 240ml PO SCH ×2 (07:30→17:30)
[2022-05-10] MEDS: vortioxetine HBr tablet 5 MG TABLET PO SCH ×2 (07:36→20:21)
[2022-05-10] MEDS: lactobacillus rhamnosus 10,000 MMU CELLS/CAPSULE PO SCH ×2 (07:37→20:21)
[2022-05-10] MEDS: ferrous sulfate 325mg tablet PO SCH ×2 (07:37→20:21)
[2022-05-10] MEDS: sennosides 8.6mg tablet PO SCH ×2 (07:37→20:21)
[2022-05-10] MEDS: nystatin 15 GM powder TP PRN (07:37)
[2022-05-10] MEDS: atorvastatin 10mg tablet PO SCH (07:37)
[2022-05-10] MEDS: bacitracin 15gm ointment TP SCH ×2 (07:37→20:22)
[2022-05-10] MEDS: ziprasidone 20mg capsule PO SCH ×2 (07:37→20:04)
[2022-05-10] MEDS: multivitamins, therapeutics tablet PO SCH (07:37)
[2022-05-10] MEDS: nicotine 7mg patch - 24hr TD SCH (07:43)
[2022-05-10] MEDS: ascorbic acid 500mg tablet PO SCH ×2 (07:43→20:22)
--- NOTE | 2022-05-10 09:00 | NUR ---
Pt appears to be sleeping. She is supine with her eyes closed. RR even and unlabored.
--- NOTE | 2022-05-10 09:40 | NUR ---
0830 Pt ate breakfast, 100%. She took her medications with yogurt. Pt was given cottage cheese prior to her meal because she was asking for food.
--- NOTE | 2022-05-10 10:06 | NUR ---
Pt getting a bed bath with clean clothing and linens.
--- NOTE | 2022-05-10 11:35 | NUR ---
Pt back on the unit from a walk outside. Pt is now watching TV with her feet up.
--- NOTE | 2022-05-10 12:55 | NUR ---
Pt walked/ran off the unit and had to be carried back to her room after she laid down in the middle of the hughes outside of the main exit door for the second time today. Pt constantly yells, "I am hungry." For breakfast she had 2 omelets, 2 full bowls of oatmeal, a yogurt, a bowl of cottage cheese, 1 and one half pieces of coffee cake, 1 banana, 2 low-fat milks and her usual cups of coffee. For lunch she had chicken, cottage cheese, a wheat roll, milk, ice cream, pudding, and salad.
--- NOTE | 2022-05-10 13:37 | NUR ---
Pt continues to yell for food. Pt just finished her lunch. Encouraged her to eat the cottage cheese from her tray. She left the rice and broccoli. Yet continues to yell for food.
--- NOTE | 2022-05-10 14:11 | NUR ---
Pt continues to wonder around the unit yelling as loud as she can, "I'm starving." She is difficult to redirect. WPRN Ativan 2mg given earlier
--- NOTE | 2022-05-10 15:55 | NUR ---
Pt took a brief hiatus she is now back awake screaming as loud as she can, "I'm hungry." She states, "please have a heart, I'm starving." Then she starts wondering off the unit. Pt redirected back to the unit and continues to scream, "I'm starving." Pt has had 3 full trays of food so far today plus snacks.
[2022-05-10] MEDS: quetiapine fumarate ER 300mg tablet PO SCH (16:00)
--- NOTE | 2022-05-10 16:19 | NUR ---
Pt continues to wander the unit, getting into things and yelling, "I'm starving." She has had 2 PRN doses of Ativan 2mg today as well as her prescribed medications.
--- NOTE | 2022-05-10 16:42 | NUR ---
Pt continues to elope. She is now in 2pt restraints.
[2022-05-10] MEDS ORDERED: ziprasidone IM 20mg inj **IM only IM ONE (17:20)
--- NOTE | 2022-05-10 17:24 | NUR ---
Pt up using the restroom.
--- NOTE | 2022-05-10 17:45 | NUR ---
Pt again began screaming and yelling and threatening staff. Pt given Geodon 20mg IM without incident.
--- NOTE | 2022-05-10 19:49 | NUR ---
The patient ate her dinner and is now sleeping on her bed.
[2022-05-10] MEDS: divalproex sod 250mg ER (24-hour) tablet PO SCH (20:05)
[2022-05-10] MEDS: docusate sod 250mg capsule PO SCH (20:21)
[2022-05-10] MEDS: polyethylene glycol 3350 17gm powd pack PO SCH (20:21)
[2022-05-10] MEDS: lamoTRIgine 100mg tablet PO SCH (20:21)
[2022-05-10] MEDS: montelukast 10mg tablet PO SCH (20:21)
[2022-05-10] MEDS: fluvoxamine 25 MG tablet PO SCH (20:21)
--- NOTE | 2022-05-10 22:15 | NUR ---
The patient awake and loud and demanding. Redirected back to bed and made aware of late hour.
--- NOTE | 2022-05-10 22:45 | NUR ---
The patient appears to be sleeping
--- NOTE | 2022-05-10 23:58 | NUR ---
The patient appears to be sleeping while sitting up in her wheel chair. She refuses to lay on her bed.
--- NOTE | 2022-05-11 01:10 | NUR ---
The patient is sitting in the wc and appears to be napping off and on
--- NOTE | 2022-05-11 03:17 | NUR ---
The patient is up yelling and demanding food.
--- NOTE | 2022-05-11 05:20 | NUR ---
The patient is awake. Dressing changed to her face. Assisted with getting clean clothes on
--- NOTE | 2022-05-11 06:54 | NUR ---
Pt awake, tearful, states that she is starving. Dr Awad increased her pm Geodon to mg.
[2022-05-11] MEDS: ziprasidone 20mg capsule PO SCH ×4 (06:55→19:38)
--- NOTE | 2022-05-11 07:01 | NUR ---
Pt awake, tearful, states that she is starving. Dr Awad increased her pm Geodon to 40 mg.
--- NOTE | 2022-05-11 07:03 | NUR ---
Dr Awad ordered a social service consult.
--- NOTE | 2022-05-11 07:12 | NUR ---
Pt has attempted to leave the unit twice. Pt is yelling that she is dying of starvation, "you're not even feeding me!"
--- NOTE | 2022-05-11 07:59 | NUR ---
tech placed pt breakfast on pt bedside table for pt to eat
[2022-05-11] MEDS: vortioxetine HBr tablet 5 MG TABLET PO SCH ×2 (08:12→19:39)
[2022-05-11] MEDS: multivitamins, therapeutics tablet PO SCH (08:12)
[2022-05-11] MEDS: sennosides 8.6mg tablet PO SCH ×2 (08:12→19:39)
[2022-05-11] MEDS: ascorbic acid 500mg tablet PO SCH ×2 (08:12→20:16)
[2022-05-11] MEDS: atorvastatin 10mg tablet PO SCH (08:12)
[2022-05-11] MEDS: lactobacillus rhamnosus 10,000 MMU CELLS/CAPSULE PO SCH ×2 (08:12→19:37)
[2022-05-11] MEDS: ferrous sulfate 325mg tablet PO SCH ×2 (08:12→19:37)
[2022-05-11] MEDS: bacitracin 15gm ointment TP SCH ×2 (08:12→19:40)
[2022-05-11] MEDS: acetaminophen w/codeine (30MG) #3 tablet PO PRN ×2 (08:13→19:40)
[2022-05-11] MEDS: nicotine 7mg patch - 24hr TD SCH (08:20)
[2022-05-11] MEDS: JUVEN Shake w/Arg/Glut/Ca2+Bmb (Juven 19.3gm) pkt 240ml PO SCH ×2 (08:20→18:13)
--- NOTE | 2022-05-11 09:50 | NUR ---
Pt is sitting quietly in her room.
--- NOTE | 2022-05-11 11:51 | NUR ---
Psychiatrist Dr Barboza is here for a med consult.
--- NOTE | 2022-05-11 13:00 | NUR ---
Dr Barboza D/c'd Ativan, decreased Depakote to 500 mg HS, decreased Seroquel to 300 mg @1600, changed lamotrigine to 100 mg BID, increased Geodon to 40 mg BID and added a new order for Klonopin 0.5 mg Q6H PRN, MR in 45 minutes if dose not helpful. Pt has new lab orders for tomorrow 05/12/22 at 0700: CBC/diff, ferritin, Iron, HgbA1C, Lipid panel, retic count. Plan is to wean off of Depakote and Seroquel and bump up lamotrigine and Geodon. A dietary consult w/ Basal Cell Carcinoma consideration, and BID fingersticks also recommended. is considering adding Metformin to med orders.
[2022-05-11] MEDS: lamoTRIgine 100mg tablet PO SCH ×2 (13:34→19:39)
--- NOTE | 2022-05-11 13:53 | NUR ---
Pt is up walking around. She has only eaten half of her lunch tray. She is now going towards the exit door. TRUNG Shields was able to redirect her back into OVF.
--- NOTE | 2022-05-11 14:08 | NUR ---
Pt started on PO ABX Keflex for cellulitis BLE's.
[2022-05-11] MEDS: cephalexin 250mg capsule PO SCH ×2 (14:15→19:38)
[2022-05-11] MEDS: quetiapine fumarate ER 300mg tablet PO SCH (15:23)
[2022-05-11] MEDS: acetaminophen 325mg tablet PO PRN (15:23)
--- NOTE | 2022-05-11 15:25 | NUR ---
Pt c/o 10/02 bilateral foot pain and was medicated with PRN Tylenol 975 mg. Pt was encouraged to wear nonskid socks and to elevate feet in a cardiac chair.
[2022-05-11] MEDS: clonazePAM 0.5mg tablet PO PRN ×2 (16:40→22:57)
--- NOTE | 2022-05-11 17:25 | NUR ---
Pt states that she is "starving." Pt is restless and heads towards unit exits. Pt provided an orange.
--- NOTE | 2022-05-11 18:30 | NUR ---
pt finished dinner tray. Pt requested a Tylenol w/ codine. Pt ambulated to and from rest room with no visual signs of difficulty. Pt resting in bedside chair reading book.
--- NOTE | 2022-05-11 18:30 | NUR ---
Lj cuellar in ED - 05/12/22 at 0558 by ELIA pt resting in bedside chair equal and nonlabored resp. pt reading book no verbal complaints
--- NOTE | 2022-05-11 19:00 | NUR ---
Pt pacing around dept yelling "I want a cigarette" "let me go". Attempt to redirect pt back to bed and focus on her book. Pt returned to bed shortly thereafter but sill voicing she want to leave.
[2022-05-11] MEDS ORDERED: ziprasidone 20mg capsule PO SCH (21:00)
[2022-05-11] MEDS: divalproex sod 250mg ER (24-hour) tablet PO SCH (21:05)
[2022-05-11] MEDS: docusate sod 250mg capsule PO SCH (21:05)
[2022-05-11] MEDS: montelukast 10mg tablet PO SCH (21:05)
[2022-05-11] MEDS: polyethylene glycol 3350 17gm powd pack PO SCH (21:05)
[2022-05-11] MEDS: fluvoxamine 25 MG tablet PO SCH (21:05)
--- NOTE | 2022-05-12 00:05 | NUR ---
pt sleeping no visual signs of discomfort nor distress
--- NOTE | 2022-05-12 04:00 | NUR ---
pt awake pacing back and forth requesting coffee to drink. milk provided
--- NOTE | 2022-05-12 06:30 | NUR ---
Received pt. awake and wandering aroud the unit at the beginning of the shift, she requires redirection at intervals with effectiveness.
[2022-05-12] MEDS: lactobacillus rhamnosus 10,000 MMU CELLS/CAPSULE PO SCH ×2 (07:07→19:01)
[2022-05-12] MEDS: ziprasidone 20mg capsule PO SCH ×2 (07:08→19:01)
[2022-05-12] MEDS: cephalexin 250mg capsule PO SCH ×2 (07:08→19:00)
[2022-05-12] MEDS: lamoTRIgine 100mg tablet PO SCH ×2 (07:08→19:00)
[2022-05-12] MEDS: atorvastatin 10mg tablet PO SCH (07:08)
[2022-05-12] MEDS: ferrous sulfate 325mg tablet PO SCH ×2 (07:08→19:00)
[2022-05-12] MEDS: acetaminophen w/codeine (30MG) #3 tablet PO PRN (07:09)
[2022-05-12] MEDS: multivitamins, therapeutics tablet PO SCH (07:09)
[2022-05-12] MEDS: sennosides 8.6mg tablet PO SCH ×2 (07:09→19:00)
[2022-05-12] MEDS: vortioxetine HBr tablet 5 MG TABLET PO SCH ×2 (07:09→19:00)
[2022-05-12] MEDS: bacitracin 15gm ointment TP SCH ×2 (07:10→20:00)
[2022-05-12] MEDS: ascorbic acid 500mg tablet PO SCH ×2 (07:13→20:00)
[2022-05-12] MEDS: nicotine 7mg patch - 24hr TD SCH (07:14)
[2022-05-12] MEDS: JUVEN Shake w/Arg/Glut/Ca2+Bmb (Juven 19.3gm) pkt 240ml PO SCH ×2 (08:13→17:58)
--- NOTE | 2022-05-12 08:13 | NUR ---
Late Entry for 05/11/22 : Agree with MEASUREMENT SUPERINTENDENT WOC charting.
[2022-05-12 08:22] LABS: ABSOLUTE RETICS # 116100 /CUMM (23000-93000); BASOPHILS % (AUTO) 0.4 % (0-1); EOSINOPHILS # (AUTO) 0.1 X10'3 (0-0.9); EOSINOPHILS % (AUTO) 2.9 % (0-6); HEMOGLOBIN 11.6 g/dl (12.0-16.0); LYMPHOCYTES # (AUTO) 1.3 X10'3 (1.1-4.8); LYMPHOCYTES % (AUTO) 25.6 % (21-51); MEAN CORPUSCULAR HEMOGLOBIN 30.6 PG (27.0-31.0); MEAN CORPUSCULAR HGB CONC 33.2 g/dL (33.0-36.5); MEAN CORPUSCULAR VOLUME 92.3 FL (78-98); MEAN PLATELET VOLUME 8.5 FL (7.4-10.4); MONOCYTES # (AUTO) 0.5 X10'3 (0-0.9); MONOCYTES % (AUTO) 10.5 % (2-12); NEUTROPHILS # (AUTO) 3.1 X10'3 (1.8-7.7); NEUTROPHILS % (AUTO) 60.6 % (42-75); PLATELET COUNT 186 X10'3 (140-440); RED BLOOD COUNT 3.79 X10'6 (4.20-5.60); RED CELL DISTRIBUTION WIDTH 13.7 % (11.5-14.5); RETICULOCYTE % (AUTO) 3.1 % (0.5-1.5); WHITE BLOOD COUNT 5.1 X10'3 (4.5-11.0)
--- NOTE | 2022-05-12 08:31 | NUR ---
Pt. is in the bathroom changing her clothing at this time, she is able to preform these ADLs independently.
[2022-05-12 09:29] LABS: IRON 71 UG/DL (49-151)
[2022-05-12 09:34] LABS: CHOLESTEROL 168 MG/DL (0-200); FERRITIN 156 NG/ML (8-252); HDL CHOLESTEROL 83 MG/DL (35-60); LDL CHOLESTEROL 70 MG/DL (50-100); TRIGLYCERIDES 101 MG/DL (20-135)
[2022-05-12 09:43] LABS: HEMOGLOBIN A1C 4.8 % (4.5-6.2)
[2022-05-12] MEDS: clonazePAM 0.5mg tablet PO PRN ×4 (10:08→17:28)
--- NOTE | 2022-05-12 10:10 | NUR ---
Pt. became increasingly restless AEB wandering around the unit requiring frequent redirection. She then attempted to elope out the front curtain and exhibited agitation regarding a belief that her son was waiting for her outside with a bag of her clothes. Pt. yelled out, "Maximus they won't let me leave!" Pt. was unable to be re-oriented to reality by staff, but she was able to be redirected back to her room. PRN Clonazepam was administered and will continue to monitor closely.
--- NOTE | 2022-05-12 11:00 | NUR ---
Pt. continued to make elopement attempts out the front curtain and made what appeared to be delusional statements that staff was keeping her from seeing her children who are outside. Pt. yelled out agitatedly using multiple profanities, "Let me leave! I have a place to stay! My kids are outside waiting for me!" Staff was unable to redirect pt. and security was called in order to redirect pt. back to her room with effectiveness. An additional PRN Clonazepam was administered r/t MRx1 order. Will continue to monitor pt. closely.
--- NOTE | 2022-05-12 11:25 | NUR ---
This production underwriter spoke with Dr. Barboza via telephone and reported that pt. had required PRN Clonazepam along with MRx1 dose. Received an order to increased PRN Clonazepam to 1mg Q6 hours PRN with a may repeat x1 dose of 0.5mg if needed in 45 minutes to achieve desired result. Per Dr. Barboza, the plan is to increase pt's dose of Geodon to 80mg BID in the future.
--- NOTE | 2022-05-12 12:21 | NUR ---
Pt. is sitting at bedside eating lunch at this time. She continues to be somewhat restless and makes occasional elopement attempts, but is able to be redirected by staff.
--- NOTE | 2022-05-12 14:46 | NUR ---
Pt. continues to pace and exit seek looking for, "her purse," becoming agitated and yelling out at intervals. She requires frequent redirection from staff.
[2022-05-12] MEDS: quetiapine fumarate ER 300mg tablet PO SCH (15:00)
--- NOTE | 2022-05-12 15:26 | NUR ---
Pt. remains restless and slightly agitated AEB yelling out, "Let me go!" She has attempted to elope out the front curtain multiple times requiring a physical escourt back to her room by staff. Pt. is observed again to be talking aloud to people who not there (her kids who she believes are outside waiting for her). PRN Clonazepam was administered and will continue to monitor closely.
[2022-05-12] MEDS ORDERED: ziprasidone IM 20mg inj **IM only IM ONE (15:55)
--- NOTE | 2022-05-12 16:00 | NUR ---
Pt. contniued to make elopement attempts and began yelling out agitatedly and very loudly, "Let me go!" She then attempted to throw herself on the ground and had to be stopped by staff. Pt's behaviors posed a danger to herself and others. Security was called to help escort pt. back to her room and this video games storywriter endorsed pt's behaviors to Dr. Mcallister. Obtained orders for IM Geodon, and this injection was aministered in pt's right deltoid, she tolerated this procedure well. Pt. is resting in her reclining chair at bedside at this time, will continue to monitor closely.
--- NOTE | 2022-05-12 17:29 | NUR ---
Pt. awoke from a nap and again continued to perseverate on her desire to get outside to see her kids. She immediately made another elopement attempt out the front curtain and required escort back on the unit by staff. Pt. then again began to yell out loudly, "Let me go! I want a cigarrette! I'm hungry!" She proceeded to sit on the floor and was assisted down by staff, no injuries were obtained. Finally, staff was able to help pt. up and back to her room. PRN Clonazepam 0.5mg was administered with a snack and will continue to monitor closely.
--- NOTE | 2022-05-12 18:37 | NUR ---
Patient is delusional and attempts to elope. She remains angry as she is redirected to bed.
--- NOTE | 2022-05-12 19:08 | NUR ---
Patient is combative with female staff, cussing, yelling, etc. The patient has slid down to the floor. Patient was gradualy returned to bed then jumped up again.
--- NOTE | 2022-05-12 20:01 | NUR ---
Patient is now asleep. No distress.
[2022-05-12] MEDS ORDERED: LORazepam 2 mg/ml vial IM ONE ×2 (20:20→20:40)
--- NOTE | 2022-05-12 20:33 | NUR ---
Patient attempted elopement. Delusional behavior, she remains compative towards staff. Dr. Awad ordered IV Ativan 4 mg.
[2022-05-12] MEDS ORDERED: LORazepam 2 mg/ml vial IV ONE (20:35)
[2022-05-12] MEDS: montelukast 10mg tablet PO SCH (21:00)
[2022-05-12] MEDS: fluvoxamine 25 MG tablet PO SCH (21:00)
[2022-05-12] MEDS: divalproex sod 250mg ER (24-hour) tablet PO SCH (21:00)
[2022-05-12] MEDS: polyethylene glycol 3350 17gm powd pack PO SCH (21:00)
[2022-05-12] MEDS: docusate sod 250mg capsule PO SCH (21:00)
--- NOTE | 2022-05-12 21:59 | NUR ---
Patient is sleeping quietly in bed. No distress. Good color.
--- NOTE | 2022-05-13 01:29 | NUR ---
Patient is awake and up to the bathroom.
--- NOTE | 2022-05-13 01:44 | NUR ---
Patient is awake and eating part of her leftover dinner.
--- NOTE | 2022-05-13 02:37 | NUR ---
Patient has returned to her bed and is sleeping on her right side.
--- NOTE | 2022-05-13 02:38 | NUR ---
Patients facial dressing has been changed.
--- NOTE | 2022-05-13 04:34 | NUR ---
Patient awakens, she requests a new depends and goes to the bathroom.
[2022-05-13] MEDS ORDERED: LORazepam 2 mg/ml vial IM ONE (06:00)
--- NOTE | 2022-05-13 06:30 | NUR ---
Received pt. yelling and very agitated at the beginning of the shift. She was demanding food, cigarrettes, and to leave. Pt. was unable to be redirected by staff and her behaviors posed a safety risk to herself and others. Per report from Noc shift she had been awake snacking all night and had hardly slept. This singer songwriter helped Ian RN to administer IM Ativan 4mg in pt's left ventrogluteal area. Pt. tolerated well, will continue to monitor closely.
[2022-05-13] MEDS: atorvastatin 10mg tablet PO SCH (07:01)
[2022-05-13] MEDS: ferrous sulfate 325mg tablet PO SCH ×2 (07:01→20:54)
[2022-05-13] MEDS: ziprasidone 20mg capsule PO SCH ×2 (07:01→20:54)
[2022-05-13] MEDS: sennosides 8.6mg tablet PO SCH ×2 (07:01→20:55)
[2022-05-13] MEDS: vortioxetine HBr tablet 5 MG TABLET PO SCH ×2 (07:01→20:55)
[2022-05-13] MEDS: lamoTRIgine 100mg tablet PO SCH ×2 (07:02→20:55)
[2022-05-13] MEDS: cephalexin 250mg capsule PO SCH ×2 (07:02→20:55)
[2022-05-13] MEDS: lactobacillus rhamnosus 10,000 MMU CELLS/CAPSULE PO SCH ×2 (07:02→20:54)
[2022-05-13] MEDS: nicotine 7mg patch - 24hr TD SCH (07:03)
[2022-05-13] MEDS: ascorbic acid 500mg tablet PO SCH ×2 (07:03→20:55)
[2022-05-13] MEDS: bacitracin 15gm ointment TP SCH ×2 (07:03→20:55)
[2022-05-13] MEDS: multivitamins, therapeutics tablet PO SCH (07:03)
--- NOTE | 2022-05-13 07:03 | NUR ---
This patient was given additional IM Ativan as patient began screaming and hitting at staff. At the time of this writing the patient is starting to calm somewhat. Report off to TANYA Omalley.
--- NOTE | 2022-05-13 07:50 | NUR ---
Pt. continues to yell out at intervals demanding food, a cigarrette, and to leave. She requires frequent redirection and appears unable to comprehend that she must wait for breakfast to arrive. Pt. demands her tray now and if she does not receive it becomes increasingly agitated. Addendum: 05/13/22 at 0756 by WILY Pt. pulled the dressing off her left cheeck and ordered wound care was completed and a new dressing applied.
[2022-05-13] MEDS: JUVEN Shake w/Arg/Glut/Ca2+Bmb (Juven 19.3gm) pkt 240ml PO SCH ×2 (08:04→17:31)
--- NOTE | 2022-05-13 08:45 | NUR ---
Pt. is in the bathroom at this time changing her clothes.
[2022-05-13] MEDS: clonazePAM 0.5mg tablet PO PRN ×2 (09:15→10:08)
--- NOTE | 2022-05-13 09:16 | NUR ---
Pt. continues to restlessly wander around the unit, exit-seeking and looking for her belongings which she beleives "someone stole" in a delusional manner. PRN Clonazepam was administered and will continue to monitor.
--- NOTE | 2022-05-13 10:09 | NUR ---
Pt. continues to wander restlessly and yell out agitatedly at intervals requiring frequent redirection. PRN Clonazepam 0.5mg was administered and will continue to monitor closely.
--- NOTE | 2022-05-13 10:30 | NUR ---
Pt. is laying in bed sleeping at this time, rr are even and unlabored.
[2022-05-13] MEDS: acetaminophen w/codeine (30MG) #3 tablet PO PRN (12:14)
--- NOTE | 2022-05-13 12:22 | NUR ---
Pt. is sitting up eating lunch at this time.
[2022-05-13] MEDS ORDERED: ziprasidone 20mg capsule PO ONE (14:15)
--- NOTE | 2022-05-13 14:24 | NUR ---
Pt. is up wandering the unit at this time, she appears restless. Pt's recent behaviors were endorsed to Dr. Barboza and received orders to increase Geodon to 60mg BID (give 20mg of Geodon now). Also, to schedule Clonazepam 1mg BID (first dose to be given now). PRN Clonazepam order to be kept in place. Will continue to monitor pt. closely.
[2022-05-13] MEDS: clonazePAM 1mg tablet PO SCH ×2 (14:38→20:55)
--- NOTE | 2022-05-13 15:15 | NUR ---
pt requested a sandwich, tech gave pt a sandwich. Pt eating lunch in chair in room.
--- NOTE | 2022-05-13 16:30 | NUR ---
Pt. is sitting in chair at bedside at this time.
[2022-05-13] MEDS: quetiapine fumarate ER 300mg tablet PO SCH (16:36)
--- NOTE | 2022-05-13 18:05 | NUR ---
Pt. is sitting at bedside eating dinner at this time.
--- NOTE | 2022-05-13 19:39 | NUR ---
pt is relaxing in the recliner in her room. no distress noted
[2022-05-13] MEDS: docusate sod 250mg capsule PO SCH (20:55)
[2022-05-13] MEDS: polyethylene glycol 3350 17gm powd pack PO SCH (20:55)
[2022-05-13] MEDS: divalproex sod 250mg ER (24-hour) tablet PO SCH (20:55)
[2022-05-13] MEDS: fluvoxamine 25 MG tablet PO SCH (20:55)
[2022-05-13] MEDS: montelukast 10mg tablet PO SCH (20:55)
--- NOTE | 2022-05-13 21:47 | NUR ---
she has been sitting in her recliner reading. Asked for a soda, so I got one for her. She asked for a bandaide for her face so I put that on for her.
--- NOTE | 2022-05-14 01:20 | NUR ---
she came out for some snacks. Gave her chips
[2022-05-14] MEDS ORDERED: LORazepam 2 mg/ml vial IM ONE (04:05)
--- NOTE | 2022-05-14 04:19 | NUR ---
last few hours pt has persistently been out of her room and walking around, at first re-directable but the last few times, she just is not and has become increasingly agitated and very loud and very and hollaring. Dr Jacobson ordered ativan 4 mg IM and so that was just given.
--- NOTE | 2022-05-14 06:06 | NUR ---
she continues to misbehave.
--- NOTE | 2022-05-14 06:40 | NUR ---
Pt. was moved in bed back to Overflow from the main ER. She is up changing her clothes at this time.
[2022-05-14] MEDS: nicotine 7mg patch - 24hr TD SCH (07:24)
[2022-05-14] MEDS: lactobacillus rhamnosus 10,000 MMU CELLS/CAPSULE PO SCH ×2 (07:24→20:16)
[2022-05-14] MEDS: ferrous sulfate 325mg tablet PO SCH ×2 (07:24→20:16)
[2022-05-14] MEDS: vortioxetine HBr tablet 5 MG TABLET PO SCH ×2 (07:25→20:17)
[2022-05-14] MEDS: lamoTRIgine 100mg tablet PO SCH ×2 (07:25→20:17)
[2022-05-14] MEDS: atorvastatin 10mg tablet PO SCH (07:25)
[2022-05-14] MEDS: multivitamins, therapeutics tablet PO SCH (07:25)
[2022-05-14] MEDS: clonazePAM 1mg tablet PO SCH ×2 (07:25→20:16)
[2022-05-14] MEDS: cephalexin 250mg capsule PO SCH ×2 (07:25→20:16)
[2022-05-14] MEDS: ziprasidone 20mg capsule PO SCH ×2 (07:25→20:16)
[2022-05-14] MEDS: sennosides 8.6mg tablet PO SCH ×2 (07:25→20:17)
[2022-05-14] MEDS: bacitracin 15gm ointment TP SCH ×2 (07:26→20:17)
[2022-05-14] MEDS: ascorbic acid 500mg tablet PO SCH ×2 (07:26→20:00)
[2022-05-14] MEDS: JUVEN Shake w/Arg/Glut/Ca2+Bmb (Juven 19.3gm) pkt 240ml PO SCH ×3 (07:30→20:18)
--- NOTE | 2022-05-14 09:00 | NUR ---
Pt. ate breakfast and is sleeping in her reclining chair at bedside at this time.
--- NOTE | 2022-05-14 10:27 | NUR ---
Pt. is sitting in chair at bedside eating at this time.
[2022-05-14] MEDS: acetaminophen w/codeine (30MG) #3 tablet PO PRN (11:21)
--- NOTE | 2022-05-14 14:25 | NUR ---
Pt. is sitting in her wheelchair at this time and is acting appropriately.
[2022-05-14] MEDS: quetiapine fumarate ER 300mg tablet PO SCH (15:07)
[2022-05-14] MEDS: clonazePAM 0.5mg tablet PO PRN ×2 (15:37→16:36)
--- NOTE | 2022-05-14 15:38 | NUR ---
Pt. presents as restless AEB pacing and talking aloud to people who are not present. She was able to be redirected to her room and PRN Clonazepam 1mg was administered, will continue to monitor pt. closely.
--- NOTE | 2022-05-14 16:03 | NUR ---
Pt. attempted to elope out the front curtain and was screaming, "I need to talk to management!" She was unable to be redirected or oriented to reality (management is not here on the weekends). Staff attempted to escort pt. back to her room, however she proceeded to sit on the ground. Staff assisted pt. to the ground and no injuries were obtained. Security was called and pt. was lifted off the floor and placed in her wheel chair. Pt. is sitting in her room eating a snack at this time, will continue to monitor closely.
--- NOTE | 2022-05-14 16:37 | NUR ---
Pt. continues to yell out agitatedly, and appears to be talking in a disorganized manner to people who are not present (possible family members). She is unable to be redirected, and MRX1 order of Clonazepam was administered and will continue to monitor pt. closely.
--- NOTE | 2022-05-14 17:56 | NUR ---
Pt. is sitting up eating dinner at this time.
--- NOTE | 2022-05-14 18:30 | NUR ---
pt finished dinner tray now up and walking around dept asking for coffee. decaf coffee provided. pt returned to and is sitting in bedside chair. no verbal or visual signs of discomfort nor disstress.
[2022-05-14] MEDS: docusate sod 250mg capsule PO SCH (21:30)
[2022-05-14] MEDS: divalproex sod 250mg ER (24-hour) tablet PO SCH (21:31)
[2022-05-14] MEDS: polyethylene glycol 3350 17gm powd pack PO SCH (21:31)
[2022-05-14] MEDS: montelukast 10mg tablet PO SCH (21:31)
[2022-05-15] MEDS: fluvoxamine 25 MG tablet PO SCH ×2 (01:30→21:17)
[2022-05-15] MEDS: acetaminophen w/codeine (30MG) #3 tablet PO PRN (01:57)
--- NOTE | 2022-05-15 01:58 | NUR ---
pt awoke from sleep and requested tylenol#3 , stated her feet hurt. prn med given
--- NOTE | 2022-05-15 07:00 | NUR ---
Received patient awake sittin up in her chair. Pt presents dishevled. Pt calm/cooperative.
[2022-05-15] MEDS: clonazePAM 1mg tablet PO SCH ×2 (07:43→20:16)
[2022-05-15] MEDS: lactobacillus rhamnosus 10,000 MMU CELLS/CAPSULE PO SCH ×2 (07:43→20:17)
[2022-05-15] MEDS: lamoTRIgine 100mg tablet PO SCH ×2 (07:43→20:17)
[2022-05-15] MEDS: cephalexin 250mg capsule PO SCH ×2 (07:43→20:16)
[2022-05-15] MEDS: sennosides 8.6mg tablet PO SCH ×2 (07:43→20:16)
[2022-05-15] MEDS: ferrous sulfate 325mg tablet PO SCH ×2 (07:43→20:16)
[2022-05-15] MEDS: ziprasidone 20mg capsule PO SCH ×2 (07:43→20:17)
[2022-05-15] MEDS: atorvastatin 10mg tablet PO SCH (07:43)
[2022-05-15] MEDS: multivitamins, therapeutics tablet PO SCH (07:43)
[2022-05-15] MEDS: vortioxetine HBr tablet 5 MG TABLET PO SCH ×2 (07:44→20:17)
[2022-05-15] MEDS: nicotine 7mg patch - 24hr TD SCH (07:46)
[2022-05-15] MEDS: ascorbic acid 500mg tablet PO SCH ×2 (07:47→20:17)
[2022-05-15] MEDS: bacitracin 15gm ointment TP SCH ×2 (07:48→20:17)
--- NOTE | 2022-05-15 08:00 | NUR ---
Pt sitting in her chair eating breakfast. Pt was compliant with medication. Pt had a large, formed BM.
--- NOTE | 2022-05-15 08:30 | NUR ---
Pt adamently demanding "I need a shower." "I haven't had a shower in a year!" "I can smell me a mile away." Pt wheeled herself to nurses station "Can you smell me."
--- NOTE | 2022-05-15 09:45 | NUR ---
Patient was escorted to shower with Lindsey, EMT and security. Pt calm/cooperative.
--- NOTE | 2022-05-15 12:06 | NUR ---
Sitting up in chair eating lunch.
--- NOTE | 2022-05-15 12:25 | NUR ---
Pt ambulated to bathroom, needed some assistance with a clean depends. Was able to make her needs known. Med BM - formed stool. This is BM x 2 this shift.
--- NOTE | 2022-05-15 13:00 | NUR ---
Pt yelling and has made multiple attempts to the exit. "I want to speak to my conservator." "My disability is running out!" Pt is difficult to redirect and she is elevating other patients. PRN Klonopin 1 mg was administered. Will continue to monitor.
[2022-05-15] MEDS: clonazePAM 0.5mg tablet PO PRN (13:01)
--- NOTE | 2022-05-15 13:35 | NUR ---
Pt resting comfortably on her bed. Respirations even and unlabored.
--- NOTE | 2022-05-15 16:10 | NUR ---
Pt moving around unit in wheelchair. Pt stating "I'm hungry," after receving a turkey sandwich and 1/2 muffin. Pt's wound was redressed as the zeroform was displaced. Pt is calm, pleasant in conversation.
[2022-05-15] MEDS: quetiapine fumarate ER 300mg tablet PO SCH (16:47)
--- NOTE | 2022-05-15 17:34 | NUR ---
NICOTINE PATCH ON LEFT SCAPULA
[2022-05-15] MEDS: JUVEN Shake w/Arg/Glut/Ca2+Bmb (Juven 19.3gm) pkt 240ml PO SCH (17:42)
--- NOTE | 2022-05-15 19:15 | NUR ---
The patient is resting on her bed.
--- NOTE | 2022-05-15 19:58 | NUR ---
During the evening assessment it was noted that patient's respiratory rate was elevated. Vital signs 98.4, 94, 39, 107/65 and sats at 93% on RA. Dr. Morales made aware and orders received
[2022-05-15] MEDS: polyethylene glycol 3350 17gm powd pack PO SCH (20:16)
[2022-05-15] MEDS: docusate sod 250mg capsule PO SCH (20:16)
[2022-05-15] MEDS: montelukast 10mg tablet PO SCH (20:16)
[2022-05-15] MEDS: divalproex sod 250mg ER (24-hour) tablet PO SCH (20:17)
--- NOTE | 2022-05-15 21:44 | NUR ---
The patient appears to be sleeping
--- NOTE | 2022-05-15 22:08 | NUR ---
The patient appears to be sleeping
--- NOTE | 2022-05-16 00:40 | NUR ---
The patient appears to be sleeping
--- NOTE | 2022-05-16 02:09 | NUR ---
The patient appears to be sleeping
--- NOTE | 2022-05-16 03:14 | NUR ---
The patient up to use the bathroom. Current vital signs 99.6, 98, 19, 146/90 and 94% on RA
--- NOTE | 2022-05-16 05:02 | NUR ---
The patient is awake. She has a cough. Temp 99.6
[2022-05-16 06:17] LABS: ABG BASE EXCESS 3.4 mmol/L (-2.0-2.0); ABG HCO3 28.9 mmol/L (22.0-26.0); ABG OXYGEN SATURATION 90.7 % (94-97); ABG PCO2 (T) 47.7 mmHg (32.0-45.0); FCOHb 0.2 % (0.0-3.9); FMetHb 0.2 % (0.0-1.5); FO2Hb 90.3 % (94-97); PATIENT TEMPERATURE 36.9
--- NOTE | 2022-05-16 07:00 | NUR ---
Received patient sleeping at shift change. Pt woke shortly after and requested coffee. Pt was given coffee and a yogurt.
[2022-05-16] MEDS: cephalexin 250mg capsule PO SCH ×2 (08:52→19:56)
[2022-05-16] MEDS: lactobacillus rhamnosus 10,000 MMU CELLS/CAPSULE PO SCH ×2 (08:52→19:55)
[2022-05-16] MEDS: atorvastatin 10mg tablet PO SCH (08:52)
[2022-05-16] MEDS: ziprasidone 20mg capsule PO SCH ×2 (08:52→19:56)
[2022-05-16] MEDS: ascorbic acid 500mg tablet PO SCH ×2 (08:52→20:13)
[2022-05-16] MEDS: ferrous sulfate 325mg tablet PO SCH ×2 (08:52→19:56)
[2022-05-16] MEDS: multivitamins, therapeutics tablet PO SCH (08:52)
[2022-05-16] MEDS: lamoTRIgine 100mg tablet PO SCH ×2 (08:52→19:57)
[2022-05-16] MEDS: sennosides 8.6mg tablet PO SCH ×2 (08:52→19:57)
[2022-05-16] MEDS: vortioxetine HBr tablet 5 MG TABLET PO SCH ×2 (08:52→19:58)
[2022-05-16] MEDS: clonazePAM 1mg tablet PO SCH ×2 (08:52→19:57)
[2022-05-16] MEDS: JUVEN Shake w/Arg/Glut/Ca2+Bmb (Juven 19.3gm) pkt 240ml PO SCH ×2 (08:53→17:27)
[2022-05-16] MEDS: nicotine 7mg patch - 24hr TD SCH (08:53)
[2022-05-16] MEDS: bacitracin 15gm ointment TP SCH (08:55)
--- NOTE | 2022-05-16 09:00 | NUR ---
Patient pacing unit, intermittent agitation wanting to shower. Pt received shower yesterday, pt adament saying "I did not receive a fucking shower." "I want a f.... shower now!" Pt was pulling green scrubs from the cup boards. Pt was redirected by automotive service writer and PCT's back to her room." Pt complied after multiple requests.
--- NOTE | 2022-05-16 09:30 | NUR ---
Patient was compliant with morning medications.
--- NOTE | 2022-05-16 10:00 | NUR ---
Left message for wound care at ext [phone] for clarification of daily wound care.
--- NOTE | 2022-05-16 10:25 | NUR ---
Patient calm, pacing unit without issue.
--- NOTE | 2022-05-16 11:02 | NUR ---
Spoke w/ Char MARIA yesterday 05/15/2022 about ordering a tissue biopsy of mass on pt's cheek. Spoke w/ Char MARIA and Dr. Garcia in the ER again. Biopsy has not been ordered yet because per Dr. Garcia pt will not consent. Without a difentive diagnosis I can not move forward w/ initiating a transfer. Spoke w/ Cindi at [facility] this morning to see about a referral and she tells me to call back when we have path on this mass. There is a number for pt's father and hopefully I can access it and have him give me a consent. Will continue to monitor.
--- NOTE | 2022-05-16 13:32 | NUR ---
Placed call to pt's father Trino Fitzgerald at [phone] to speak w/ him regarding consent for biopsy of mass on pt's cheek. Forced to leave asking for return call. Continue to monitor.
--- NOTE | 2022-05-16 13:35 | NUR ---
Pt sleeping in recliner at FOB, rr even and unlabored. Skin pink.
[2022-05-16] MEDS: clonazePAM 0.5mg tablet PO PRN (13:54)
--- NOTE | 2022-05-16 14:00 | NUR ---
Patient woke in an irritable mood at 1345. Pt began yelling "I am fucking hungry, someone took my food!" Pt charged towards the food cart. Pt already ate 100% of her lunch, which is standard for her. Pt continued to yell and curse. Pt stated "you are fucking starving me!" "I am f... leaving then!" Pt picked up her books and charged towards the exit. Pt would not return to her room and continued to call staff vulgar names. Pt was assisted by staff to her room. Pt let herself down to the floor continuing to use vulgar names. PRN Klonopin 1 mg was given with yogurt. Pt continued to yell saying "I am so f... hungry!" Pt has gained 70 lbs since her admit. Will continue to monitor.
--- NOTE | 2022-05-16 14:56 | NUR ---
Hygiene bucket and shower supplies set up for patient in bathroom. Pt bathed herself, clean scrubs were given. Pt much calmer, still having intermittent negative comments.
--- NOTE | 2022-05-16 15:09 | NUR ---
Patient cleaned up and now yelling about not being able to leave. RN advised patient that she would get her a sandwich when the other nurse comes back from lunch. Patient did calm down. Continue to monitor.
--- NOTE | 2022-05-16 15:53 | NUR ---
Pt sitting in chair intermittenly screaming profanities.
[2022-05-16] MEDS: quetiapine fumarate ER 300mg tablet PO SCH (16:00)
--- NOTE | 2022-05-16 16:02 | NUR ---
Report given to TANYA Tesfaye.
--- NOTE | 2022-05-16 18:32 | NUR ---
pt sitting on bedside chair eating her dinner. no visual signs of discomfort nor distress
[2022-05-16] MEDS: acetaminophen w/codeine (30MG) #3 tablet PO PRN (18:48)
[2022-05-16] MEDS: docusate sod 250mg capsule PO SCH (20:55)
[2022-05-16] MEDS: montelukast 10mg tablet PO SCH (20:56)
[2022-05-16] MEDS: polyethylene glycol 3350 17gm powd pack PO SCH (20:56)
[2022-05-16] MEDS: fluvoxamine 25 MG tablet PO SCH (20:57)
[2022-05-16] MEDS: divalproex sod 250mg ER (24-hour) tablet PO SCH (20:57)
--- NOTE | 2022-05-17 06:34 | NUR ---
Patient is up and asking for food. Patient had 2 sandwiches last night. Continue to monitor.
--- NOTE | 2022-05-17 07:50 | NUR ---
RN took patient to take a shower. Patient did need some help getting dressed today. Patient was very happy to get cleaned up. Patient's hair is very matted. RN to get some conditioner from [facility] later and brush her hair out. Continue to monitor.
--- NOTE | 2022-05-17 08:11 | NUR ---
Patient eating breakfast. No distress observed. Continue to monitor.
[2022-05-17] MEDS: atorvastatin 10mg tablet PO SCH (08:13)
[2022-05-17] MEDS: lamoTRIgine 100mg tablet PO SCH ×2 (08:13→20:22)
[2022-05-17] MEDS: multivitamins, therapeutics tablet PO SCH (08:13)
[2022-05-17] MEDS: ferrous sulfate 325mg tablet PO SCH ×2 (08:13→20:20)
[2022-05-17] MEDS: vortioxetine HBr tablet 5 MG TABLET PO SCH ×2 (08:14→20:22)
[2022-05-17] MEDS: clonazePAM 1mg tablet PO SCH ×2 (08:14→20:23)
[2022-05-17] MEDS: lactobacillus rhamnosus 10,000 MMU CELLS/CAPSULE PO SCH ×2 (08:14→20:22)
[2022-05-17] MEDS: ascorbic acid 500mg tablet PO SCH ×2 (08:14→20:22)
[2022-05-17] MEDS: ziprasidone 20mg capsule PO SCH ×2 (08:14→20:20)
[2022-05-17] MEDS: sennosides 8.6mg tablet PO SCH ×2 (08:14→20:22)
[2022-05-17] MEDS: nicotine 7mg patch - 24hr TD SCH (08:15)
[2022-05-17] MEDS: cephalexin 250mg capsule PO SCH ×2 (08:15→20:22)
[2022-05-17] MEDS: JUVEN Shake w/Arg/Glut/Ca2+Bmb (Juven 19.3gm) pkt 240ml PO SCH ×2 (08:23→18:13)
--- NOTE | 2022-05-17 10:03 | NUR ---
Dr. Barboza speaking with patient. Continue to monitor.
[2022-05-17] MEDS: acetaminophen w/codeine (30MG) #3 tablet PO PRN ×2 (11:57→20:20)
--- NOTE | 2022-05-17 12:07 | NUR ---
Patient eating lunch. No distress observed. Continue to monitor.
--- NOTE | 2022-05-17 13:55 | NUR ---
Patient up and walking around with her walker. Attempted to walk out to the hallway and is sometimes redirectable and sometimes someone must district superintendent front of her to stop her from leaving. Continue to monitor.
--- NOTE | 2022-05-17 14:40 | NUR ---
Patient napping in her recliner with her feet up. No distress observed. Continue to monitor.
--- NOTE | 2022-05-17 16:20 | NUR ---
Patient started yelling around 1600. She usually gets agitated at this time. Patient attempted to leave but patient did come back before going through the double doors. Continue to monitor.
[2022-05-17] MEDS: quetiapine fumarate ER 300mg tablet PO SCH (16:28)
--- NOTE | 2022-05-17 18:45 | NUR ---
The patient has been agitated since change of shift. She has attempted to leave the unit and hospital without any kind of plan for food, long-term or clothing. She was made aware that it was dark and cold outside but she continues to try and leave. She is insisting that she is going to get a big bill for her room and board and was insistent on this line of thinking.
--- NOTE | 2022-05-17 18:45 | NUR ---
Note alisa in ED - 05/17/22 at 1845 by JUSTINE The patient has been agitatead since change of shift. She is attempting to walk away with no plan for food
--- NOTE | 2022-05-17 19:50 | NUR ---
The patient continues agitated, screaming profanities.
[2022-05-17] MEDS: polyethylene glycol 3350 17gm powd pack PO SCH (20:20)
[2022-05-17] MEDS: fluvoxamine 25 MG tablet PO SCH (20:20)
[2022-05-17] MEDS: montelukast 10mg tablet PO SCH (20:20)
[2022-05-17] MEDS: clonazePAM 0.5mg tablet PO PRN ×2 (20:21→20:41)
[2022-05-17] MEDS: docusate sod 250mg capsule PO SCH (20:22)
--- NOTE | 2022-05-17 21:55 | NUR ---
The patient is screaming and yelling and swearing at staff.
[2022-05-17] MEDS ORDERED: ketamine 50 mg/ml 10ml vial IM ONE (22:35)
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
--- NOTE | 2022-05-17 23:28 | NUR ---
Discussed patient behaviors and interventions with ER coil finisher and nursing supervisior and charge on [facility]. Requested that the patient be put on a one to one with staff if her behaviors continue in the AM. Reguested [facility] have psychiatrist came tomorrow and do a medication evaluation.
--- NOTE | 2022-05-18 01:33 | NUR ---
The patient appears to be sleeping
--- NOTE | 2022-05-18 02:47 | NUR ---
The patient appears to be sleeping
--- NOTE | 2022-05-18 04:23 | NUR ---
The patient awake is awake and was incontinent of urine. She was assisted with changing into clean clothes. Bed linens changed.
[2022-05-18] MEDS: acetaminophen w/codeine (30MG) #3 tablet PO PRN ×2 (04:29→15:40)
--- NOTE | 2022-05-18 05:37 | NUR ---
The patient is awake and focused on food. She is calmer this morning and can be redirected.
--- NOTE | 2022-05-18 06:44 | NUR ---
Patient awake and screaming. Patient went to where the scrubs are kept and broke the lock because of her pulling on the door handle. Patient perseverates on one thing. Nursing mushroom growing supervisor, Natacha, sent a sitter from [facility]. Continue to monitor.
[2022-05-18] MEDS: vortioxetine HBr tablet 5 MG TABLET PO SCH ×2 (07:41→22:20)
[2022-05-18] MEDS: atorvastatin 10mg tablet PO SCH (07:42)
[2022-05-18] MEDS: ziprasidone 20mg capsule PO SCH ×2 (07:42→22:20)
[2022-05-18] MEDS: ferrous sulfate 325mg tablet PO SCH ×2 (07:42→22:19)
[2022-05-18] MEDS: multivitamins, therapeutics tablet PO SCH (07:42)
[2022-05-18] MEDS: lactobacillus rhamnosus 10,000 MMU CELLS/CAPSULE PO SCH ×2 (07:42→22:19)
[2022-05-18] MEDS: sennosides 8.6mg tablet PO SCH ×2 (07:42→22:20)
[2022-05-18] MEDS: nicotine 7mg patch - 24hr TD SCH (07:43)
[2022-05-18] MEDS: clonazePAM 1mg tablet PO SCH (07:43)
[2022-05-18] MEDS: ascorbic acid 500mg tablet PO SCH ×2 (07:43→22:21)
[2022-05-18] MEDS: lamoTRIgine 100mg tablet PO SCH ×2 (07:43→22:20)
[2022-05-18] MEDS: cephalexin 250mg capsule PO SCH (07:44)
[2022-05-18] MEDS: JUVEN Shake w/Arg/Glut/Ca2+Bmb (Juven 19.3gm) pkt 240ml PO SCH (07:44)
--- NOTE | 2022-05-18 08:09 | NUR ---
Patient eating breakfast. No distress observed. Continue to monitort.
--- NOTE | 2022-05-18 09:50 | NUR ---
Patient attempting to walk out and/or walk into peoples room. Sitter at patient's side. Continue to monitor.
--- NOTE | 2022-05-18 10:54 | NUR ---
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 Then patient sticking her bloody hand in her mouth. Patient would not take direction. Mitts placed on patient's had to prevent her from harming herself. Continue to monitor.
--- NOTE | 2022-05-18 11:10 | NUR ---
Patient removed the mitts and is screaming for food. Patient is not redirectable. Continue to monitor.
[2022-05-18] MEDS: clonazePAM 0.5mg tablet PO SCH ×3 (12:00→16:49)
--- NOTE | 2022-05-18 12:25 | NUR ---
Patient eating lunch. No distress observed. Continue to monitor.
--- NOTE | 2022-05-18 14:11 | NUR ---
Patient up and wanting a "green scrub top". Patient gets food all over herself when she eats. [employer] advised patient that we have to save those for our other (psychiatric) population. [employer] offered patient a clean gown and patient eventually changed into the clean gown. Continue to monitor.
--- NOTE | 2022-05-18 15:54 | NUR ---
Patient sitting in her recliner and eating a snack. No distress observed. Continue to monitor.
[2022-05-18] MEDS: quetiapine fumarate ER 300mg tablet PO SCH (16:49)
--- NOTE | 2022-05-18 17:30 | NUR ---
Patient has been doing well in the afternoon. Continue to monitor.
--- NOTE | 2022-05-18 17:39 | NUR ---
Patient screaming "I'm hungry! You haven't fed me in 2 days!" RN gave patient half of a sandwich 30 minutes ago. RN also gave her meds about 1 hour ago with Jello (no yogurt, no applesauce). Continue to monitor.
--- NOTE | 2022-05-18 18:30 | NUR ---
Patient up using walker, wandering around overflow area. Attempted to walk passed curtain to elope and patient redirected, became upset and sat down on floor.
--- NOTE | 2022-05-18 20:39 | NUR ---
Patient up in chair at this time, so far has refused HS medications. Will offer again in a bit.
[2022-05-18] MEDS: montelukast 10mg tablet PO SCH (22:19)
[2022-05-18] MEDS: fluvoxamine 25 MG tablet PO SCH (22:19)
[2022-05-18] MEDS: docusate sod 250mg capsule PO SCH (22:20)
[2022-05-18] MEDS: polyethylene glycol 3350 17gm powd pack PO SCH (22:21)
--- NOTE | 2022-05-18 22:23 | NUR ---
Patient took HS meds at this time, assisted her to bed. Got up a few minutes later and is now brushing hair and picking at items on her side table.
[2022-05-18] MEDS: acetaminophen 325mg tablet PO PRN (23:45)
[2022-05-18] MEDS: clonazePAM 0.5mg tablet PO PRN (23:45)
--- NOTE | 2022-05-18 23:48 | NUR ---
Patient still awake, administered tylenol for pain to feet and Klonopin for anxiety. Patient believes it is day time. Refuses to believe it's night time. Went back to chair and talking to herself.
--- NOTE | 2022-05-19 00:25 | NUR ---
breaking primary RN FOR LUNCH PATIENT AWAKE UP TO USE RESTROOM WITH WALKER NO OBSERVABLE S/S OF ACUTE STRESS AT THIS TIME PATIENT EASY TO RE DIRECT AT THIS TIME
[2022-05-19] MEDS ORDERED: LORazepam 2 mg/ml vial IM ONE (01:10)
[2022-05-19] MEDS ORDERED: haloperidol lactate 5mg/ml inj IM ONE (01:10)
--- NOTE | 2022-05-19 01:10 | NUR ---
Received orders d/t patient shouting and making demands for food. Patient took HS meds around 2230 and hasn't fallen asleep yet. Verbal de-escalation and giving her food only works for a short time until her next request. When she doesn't get her request met she begins to shout out loud.
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
--- NOTE | 2022-05-19 03:30 | NUR ---
Patient awake and asking for food. Gave her a yogurt to eat and is now up walking around quietly.
--- NOTE | 2022-05-19 05:27 | NUR ---
Patient is currently asleep and has been for the passed hour. She was encouraged to go back to sleep. She was asking for food and was up to use the BR. Told her breakfast would be here in a few hours and she needed to get some rest for the upcoming day. RR even/nonlabored. No s/sx of distress noted.
[2022-05-19] MEDS: multivitamins, therapeutics tablet PO SCH (07:12)
[2022-05-19] MEDS: nicotine 7mg patch - 24hr TD SCH (07:12)
[2022-05-19] MEDS: lamoTRIgine 100mg tablet PO SCH ×2 (07:12→20:05)
[2022-05-19] MEDS: vortioxetine HBr tablet 5 MG TABLET PO SCH ×2 (07:13→20:06)
[2022-05-19] MEDS: lactobacillus rhamnosus 10,000 MMU CELLS/CAPSULE PO SCH ×2 (07:13→20:08)
[2022-05-19] MEDS: ferrous sulfate 325mg tablet PO SCH ×2 (07:14→20:05)
[2022-05-19] MEDS: sennosides 8.6mg tablet PO SCH ×2 (07:14→20:06)
[2022-05-19] MEDS: clonazePAM 0.5mg tablet PO SCH ×3 (07:14→16:51)
[2022-05-19] MEDS: ziprasidone 20mg capsule PO SCH ×2 (07:14→20:06)
[2022-05-19] MEDS: ascorbic acid 500mg tablet PO SCH ×2 (07:15→20:18)
--- NOTE | 2022-05-19 07:31 | NUR ---
Client was awake at 07:00, ambulating with walker around the ED, requesting food. Client accepted her am meds in yogurt. Client asked repeatedly for her breakfast tray and was assured it will be here soon. She was offered a snack.
--- NOTE | 2022-05-19 08:08 | NUR ---
breaking primary RN, pt is sitting at bedside, eating, in no apparent distress
--- NOTE | 2022-05-19 08:45 | NUR ---
Patient has eaten breakfast, and is now wandering around with her walker, "I want to leave. Please let me leave." She is helped back to her room.
--- NOTE | 2022-05-19 09:13 | NUR ---
Patient lying on her bed. Looks like she might sleep.
[2022-05-19] MEDS: atorvastatin 10mg tablet PO SCH (09:35)
--- NOTE | 2022-05-19 10:44 | NUR ---
Patient awake and using bathroom.
--- NOTE | 2022-05-19 10:47 | NUR ---
Patient yelling for a shower and clean clothing.
--- NOTE | 2022-05-19 12:17 | NUR ---
Patient sitting on the side of her bed eating her lunch meal.
[2022-05-19] MEDS: acetaminophen w/codeine (30MG) #3 tablet PO PRN (12:32)
--- NOTE | 2022-05-19 12:32 | NUR ---
Pt sitting up at the edge of her bed. Pt requesting a shower and pants. She was provided with and assissted into a clean gown.
--- NOTE | 2022-05-19 13:38 | NUR ---
Patient sitting in her chair. She quietly mumbles to herself, but is remaining pretty quiet.
--- NOTE | 2022-05-19 14:06 | NUR ---
Pt's hair washed and braided by Lyudmila fine. She is now sitting quietly in the bedside chair.
--- NOTE | 2022-05-19 15:00 | NUR ---
Patient sitting on her bed having a conversation with herself. No outbursts yet today.
[2022-05-19] MEDS: quetiapine fumarate ER 300mg tablet PO SCH (16:51)
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
--- NOTE | 2022-05-19 17:10 | NUR ---
Patient was provided a cup of Tea, and she has calmed down for a few minutes.
--- NOTE | 2022-05-19 18:40 | NUR ---
pt up wandering around her room, eating , calm, no needs at this time
--- NOTE | 2022-05-19 19:45 | NUR ---
pt walking up to nurses station requesting snacks
[2022-05-19] MEDS: montelukast 10mg tablet PO SCH (20:05)
[2022-05-19] MEDS: fluvoxamine 25 MG tablet PO SCH (20:06)
[2022-05-19] MEDS: clonazePAM 0.5mg tablet PO PRN (20:08)
[2022-05-19] MEDS: polyethylene glycol 3350 17gm powd pack PO SCH (20:08)
[2022-05-19] MEDS: docusate sod 250mg capsule PO SCH (20:17)
--- NOTE | 2022-05-19 22:29 | NUR ---
pt is in her recliner, sleeping, regular breathing present
--- NOTE | 2022-05-19 23:30 | NUR ---
pt is sleeping in her recliner, reg breathing present, no agitation observed
--- NOTE | 2022-05-20 00:30 | NUR ---
pt is in her recliner, eyes closed, sleeping, in no apparent distress
--- NOTE | 2022-05-20 01:30 | NUR ---
pt remains asleep, regular breathing is present, no s/s of distress
--- NOTE | 2022-05-20 03:38 | NUR ---
pt was assisted to the bathroom, now back to sitting up in her chair
--- NOTE | 2022-05-20 04:35 | NUR ---
pt is sleeping in her chair, tech repositioned her for comfort, no other needs identified
--- NOTE | 2022-05-20 05:36 | NUR ---
pt is supine in recliner, just woke up, calm at this time, accepting of vitals
--- NOTE | 2022-05-20 06:40 | NUR ---
Patient is up in a recliner eating snacks and drinking milk
--- NOTE | 2022-05-20 07:19 | NUR ---
Received Pt at 0645 in chair sleeping/ resting and in no distress at this time. Pt up to bathroom and asked for snacks and returned to chair.
[2022-05-20] MEDS: nicotine 7mg patch - 24hr TD SCH (08:29)
[2022-05-20] MEDS: ferrous sulfate 325mg tablet PO SCH ×2 (08:30→19:26)
[2022-05-20] MEDS: lactobacillus rhamnosus 10,000 MMU CELLS/CAPSULE PO SCH ×2 (08:30→19:27)
[2022-05-20] MEDS: atorvastatin 10mg tablet PO SCH (08:31)
[2022-05-20] MEDS: sennosides 8.6mg tablet PO SCH ×2 (08:31→19:27)
[2022-05-20] MEDS: vortioxetine HBr tablet 5 MG TABLET PO SCH ×2 (08:31→19:27)
[2022-05-20] MEDS: multivitamins, therapeutics tablet PO SCH (08:31)
[2022-05-20] MEDS: ascorbic acid 500mg tablet PO SCH ×2 (08:31→21:43)
[2022-05-20] MEDS: clonazePAM 0.5mg tablet PO SCH ×3 (08:31→16:44)
[2022-05-20] MEDS: lamoTRIgine 100mg tablet PO SCH ×2 (08:31→19:27)
[2022-05-20] MEDS: ziprasidone 20mg capsule PO SCH ×2 (08:33→19:27)
--- NOTE | 2022-05-20 09:00 | NUR ---
Pt up and down. Currently in chair eating grahm crackers and tea. Pt frustrated that she can not get a shower right now.
--- NOTE | 2022-05-20 10:23 | NUR ---
Patient is using the restroom.
[2022-05-20] MEDS: acetaminophen w/codeine (30MG) #3 tablet PO PRN (11:41)
--- NOTE | 2022-05-20 12:02 | NUR ---
Pt given prn Tylenol with codeine for pain. She also took her scheduled 1200 meds. Pt is becoming more demanding of staff for things and shower. Pt remains redirectable at this time and is in bathroom now.
--- NOTE | 2022-05-20 15:32 | NUR ---
Pt up frequently to nurses station to make requests. Pt given decaf coffee and a snack. Pt used bathroom again and now sitting in her chair.
[2022-05-20] MEDS: quetiapine fumarate ER 300mg tablet PO SCH (16:44)
--- NOTE | 2022-05-20 17:19 | NUR ---
Pt continues to approach nurses station with various requests. Pt did not have violent or yelling episodes this shift and took all meds w/o issue.
--- NOTE | 2022-05-20 18:30 | NUR ---
Assumed care from TANYA Jameson/
--- NOTE | 2022-05-20 18:48 | NUR ---
Patient remains disoriented to events and time. She is cooperative at this time. Clean bandage on patients basal cell growth on her left face. Patient was assisted with her ADL's by the unit tech. She sits quietly drinking her coffee. Patients toes are swollen on both feet. Some redness. Legs and feet are not hot to touch. Patient states she can't feel toes. Patient ate her dinner. She is cooperative at this time.
--- NOTE | 2022-05-20 19:05 | NUR ---
ER MD Mcallister will come over later and evaluate patients feet.
[2022-05-20] MEDS: clonazePAM 0.5mg tablet PO PRN (19:27)
--- NOTE | 2022-05-20 19:37 | NUR ---
Patient was becoming labile. Her PRN Klonopin was given. Patient complied with her first night medications. Patient has torn off her facial bandage. It will be redressed.
[2022-05-20] MEDS: polyethylene glycol 3350 17gm powd pack PO SCH (21:00)
[2022-05-20] MEDS: docusate sod 250mg capsule PO SCH (21:00)
[2022-05-20] MEDS: fluvoxamine 25 MG tablet PO SCH (21:00)
[2022-05-20] MEDS: montelukast 10mg tablet PO SCH (21:00)
[2022-05-20] MEDS ORDERED: LORazepam 2 mg/ml vial IM ONE ×3 (21:20→23:30)
--- NOTE | 2022-05-20 21:42 | NUR ---
Patient yelling and striking out at staff. Per ER Ativan 4 mg given IM. Patient mellowed and went to sleep.
--- NOTE | 2022-05-20 23:18 | NUR ---
Patient awoke and was assisted to the bathroom. Upon exiting this patient began yelling and screaming once againg. She struck out at staff. Patient is disoriented to the time. Patient will be given IM Haldol 5 mg and IM Ativan 2 mg.
[2022-05-20] MEDS ORDERED: haloperidol lactate 5mg/ml inj IM ONE (23:30)
--- NOTE | 2022-05-21 00:20 | NUR ---
Patient is now sleeping quietly, low fowlers position in bed. Good color, regular resp.
--- NOTE | 2022-05-21 01:42 | NUR ---
Pt sleeping, supine position.
--- NOTE | 2022-05-21 02:44 | NUR ---
Patient awakens and ambulates to the bathroom using her walker. Patient is cooperative at this point.
--- NOTE | 2022-05-21 03:49 | NUR ---
Patient is sleeping quietly in a low fowlers position.
--- NOTE | 2022-05-21 05:03 | NUR ---
Patient is sleeping in a mid fowlers position.
--- NOTE | 2022-05-21 05:13 | NUR ---
The patient had removed her facial dressing three times now. She is asleep. The plan is to redress the patients face when vital signs are taken. This is in an attempt to let patient sleep.
--- NOTE | 2022-05-21 06:01 | NUR ---
Patient is awake. Her face was washed and gown changed. A new Xeroform bandage was applied. Patient is ambulating to the bathroom to the bathroom. Patient complains of a headache and back pain too. Patient is cooperative.
--- NOTE | 2022-05-21 07:02 | NUR ---
Pt awake sitting in reclined chair, rr even and unlabored.
[2022-05-21] MEDS: vortioxetine HBr tablet 5 MG TABLET PO SCH ×2 (08:19→20:10)
[2022-05-21] MEDS: lactobacillus rhamnosus 10,000 MMU CELLS/CAPSULE PO SCH ×2 (08:19→20:08)
[2022-05-21] MEDS: ferrous sulfate 325mg tablet PO SCH ×2 (08:19→20:09)
[2022-05-21] MEDS: ascorbic acid 500mg tablet PO SCH ×2 (08:19→20:10)
[2022-05-21] MEDS: ziprasidone 20mg capsule PO SCH ×2 (08:19→20:09)
[2022-05-21] MEDS: atorvastatin 10mg tablet PO SCH (08:19)
[2022-05-21] MEDS: sennosides 8.6mg tablet PO SCH ×2 (08:19→20:10)
[2022-05-21] MEDS: multivitamins, therapeutics tablet PO SCH (08:19)
[2022-05-21] MEDS: clonazePAM 0.5mg tablet PO SCH ×3 (08:19→18:03)
[2022-05-21] MEDS: lamoTRIgine 100mg tablet PO SCH ×2 (08:19→20:09)
[2022-05-21] MEDS: nicotine 7mg patch - 24hr TD SCH (08:20)
--- NOTE | 2022-05-21 09:10 | NUR ---
Pt set up in bathroom with hygiene products. Pt is able to clean herself and wash hair. Clean scrubs provided.
--- NOTE | 2022-05-21 11:00 | NUR ---
Pt ambulated unit with FWW. Pt c/o "I am so Addendum: 05/21/22 at 1356 by LYNDA "I am so hungry." "Just starve me." Pt was given a yogurt for snack and reinforced that lunch will be here in an hour. "Just dig me a hole." "I haven't eaten in a year."
--- NOTE | 2022-05-21 13:20 | NUR ---
Pt consumed 100% of her lunch. Pt is now sleeping in her recliner chair, rr even and unlabored.
--- NOTE | 2022-05-21 15:10 | NUR ---
Pt sitting in her recliner quietly talking to herself "I am never going to leave here."
[2022-05-21] MEDS: quetiapine fumarate ER 300mg tablet PO SCH (15:57)
--- NOTE | 2022-05-21 17:54 | NUR ---
Patient standing by exit screaming "I am starving!" "If I can't get anything to eat, I will go find something to eat!" It took blog writer ten minutes to get her to ambulate back to her room "I am starving!" "I don't get no fucking food!" Devulcanizer Operator explained to patient that dinner should be here within fifteen minutes.
--- NOTE | 2022-05-21 18:14 | NUR ---
Patient sitting in recliner eating dinner. Behavior appropriate.
--- NOTE | 2022-05-21 18:30 | NUR ---
PT MOVED TO MAIN ER ROOM 13 PT TOLERATED THE MOVE WELL WITH NO VERBL COMPLAINTS
[2022-05-21] MEDS: clonazePAM 0.5mg tablet PO PRN (20:11)
[2022-05-21] MEDS: docusate sod 250mg capsule PO SCH (21:00)
[2022-05-21] MEDS: fluvoxamine 25 MG tablet PO SCH (21:00)
[2022-05-21] MEDS: montelukast 10mg tablet PO SCH (21:00)
[2022-05-21] MEDS: polyethylene glycol 3350 17gm powd pack PO SCH (21:00)
--- NOTE | 2022-05-21 22:15 | NUR ---
PT AMBULATED OUTSIDE THROUGH AMBULANCE DOOR. PT STARTED TO GRAZE THROUGH GARBAGE CANS FOR A Cigarette. PT STOPPED AND RETURNED TO THE ED STATEING SHE NEEDS A MASK. PT RETURNED FOR A MASK THEN PROCEDED TO RETURN OUTSIDE. WHEN PT WAS DENIED ACCES TO AMBULANCE BAY PT STARTED SCREAMING AND SAT HERSELF ONTO THE HALWAYFLOOR. PT SAT ON FLOW FOR A POX 2 MIN BEFORE GETTING HERSELF UP AND WALKING BACK TO HER ROOM. PT YELLING AND BEING DISRUPTIVE ENTIRE WAY.
--- NOTE | 2022-05-21 22:47 | NUR ---
PT PICKING A LT SIDE CHEEK WOUND. PT OPENED UP WOUND AND STARTED TO BLEED. MD INFORMED WOUND CLEANED AND DRESSING APPLIED.
--- NOTE | 2022-05-22 03:49 | NUR ---
PT AWAKE AND AGITATED. PT UPSET AND DEMANDING A . PT INFORMED THAT IS NOT AVALIBLE AT THIS TIME OF DAY. PT REQUESTED A FOOD TRAY. SNACK PROVIDED PT SITTING AT BEDSIDE EATING NO VISUAL SIGNS OF DISTRESS NOR DISCOMFORT
--- NOTE | 2022-05-22 05:55 | NUR ---
moved pt to room 23
--- NOTE | 2022-05-22 06:34 | NUR ---
RN walked in this morning at 0600 and patient was screaming as loud as she could "I want food! I want food!" uHmberto replies "I just gave you a snack." Patient keeps screaming. Patient now sitting in her chair and saying "you mother fucking bitch!" Patient is not addressing statement to anybody at this time. Patient is agitated. Continue to monitor.
--- NOTE | 2022-05-22 07:30 | NUR ---
Patient went into the BR with clean clothes, towel, wash cloths, shampoo cap, body wash and deoderant. Patient went to get cleaned up. Continue to monitor.
--- NOTE | 2022-05-22 07:55 | NUR ---
Patient eating breakfast. No distress observed. Continue to monitor.
--- NOTE | 2022-05-22 08:20 | NUR ---
Patient came out of BR and had scratched her wound and bleeding. RN cleaned patient's wound and dressed it. RN also cleaned patient's hands. Continue to monitor.
[2022-05-22] MEDS: atorvastatin 10mg tablet PO SCH (08:49)
[2022-05-22] MEDS: lactobacillus rhamnosus 10,000 MMU CELLS/CAPSULE PO SCH ×2 (08:49→20:17)
[2022-05-22] MEDS: lamoTRIgine 100mg tablet PO SCH ×2 (08:50→20:17)
[2022-05-22] MEDS: ziprasidone 20mg capsule PO SCH ×2 (08:50→20:17)
[2022-05-22] MEDS: ferrous sulfate 325mg tablet PO SCH ×2 (08:51→20:17)
[2022-05-22] MEDS: vortioxetine HBr tablet 5 MG TABLET PO SCH ×2 (08:51→20:17)
[2022-05-22] MEDS: multivitamins, therapeutics tablet PO SCH (08:51)
[2022-05-22] MEDS: clonazePAM 0.5mg tablet PO SCH ×3 (08:51→16:19)
[2022-05-22] MEDS: sennosides 8.6mg tablet PO SCH ×2 (08:51→20:17)
[2022-05-22] MEDS: ascorbic acid 500mg tablet PO SCH ×2 (08:52→20:17)
[2022-05-22] MEDS: nicotine 7mg patch - 24hr TD SCH (08:52)
--- NOTE | 2022-05-22 09:17 | NUR ---
Patient demanding a new shirt. Patient's shirt is a medium and patient always insists on a green shirt but it's too tight. They have not restocked the shelves with new green scrubs. Patient advised but perseverates on her green shirts. Continue to monitor.
--- NOTE | 2022-05-22 10:35 | NUR ---
Patient given applesauce for snack. Patient went to sit down and eat applesauce. Continue to monitor.
--- NOTE | 2022-05-22 11:22 | NUR ---
Patient screaming for food. RN advised patient she will have lunch in 1 hour. Patient asks "What about breakfast?" RN explains she already ate breakfast. Patient states "I haven't eaten breakfast in 6 days!" Patient walked with her walker toward the [facility] [employer] exit. TANYA Edmonds and Marleny Brothers stopped the patient. Patient leaned back and RN and Tech assisted patient to the floor. Patient has been able to get herself up off the floor since she often gets upset and goes to the floor. Patient started scooting herself toward her room. RN advises patient to please wait for Security to assist patient up. Patient refused. RN called 2 male Techs from the Main and they assisted patient up and into her bed. Patient immediately got her walker and started screaming that she wants a shower. RN advised patient this morning that she would take her but patient said she wanted to clean up in the BR. So RN allowed patient to clean up and wash her hair. Patient no perseverating on how she stinks and need a shower. "I smell like c*m and sweat." RN advised patient that she is clean and her hair is washed. Continue to monitor.
--- NOTE | 2022-05-22 12:15 | NUR ---
Patient took a 20 minute nap and awoke to her lunch. Patient is calm and eating. No distress observed. Continue to monitor.
--- NOTE | 2022-05-22 14:04 | NUR ---
RN braiding patient's hair. Patient had a bad morning but is having a good afternoon. Continue to monitor.
--- NOTE | 2022-05-22 16:17 | NUR ---
Patient eating her snack and watching T.V. No distress observed. Continue to monitor.
[2022-05-22] MEDS: quetiapine fumarate ER 300mg tablet PO SCH (16:19)
[2022-05-22] MEDS: acetaminophen w/codeine (30MG) #3 tablet PO PRN ×2 (16:19→23:51)
--- NOTE | 2022-05-22 19:18 | NUR ---
The patient was sitting up at the change of shift and ate her dinner. After dinner she has been attending to her ADLs. She is one to one with staff for the most part 2nd to her high elopement risk.
[2022-05-22] MEDS: montelukast 10mg tablet PO SCH (20:17)
[2022-05-22] MEDS: docusate sod 250mg capsule PO SCH (20:17)
[2022-05-22] MEDS: fluvoxamine 25 MG tablet PO SCH (20:17)
[2022-05-22] MEDS: polyethylene glycol 3350 17gm powd pack PO SCH (20:17)
--- NOTE | 2022-05-22 20:32 | NUR ---
The patient took her evening medications and is currenty sitting by her bed having a sandwhich 2nd to Mabel given.
--- NOTE | 2022-05-22 22:15 | NUR ---
The patient appeas to be sleeping
[2022-05-22] MEDS: clonazePAM 0.5mg tablet PO PRN (23:51)
--- NOTE | 2022-05-22 23:57 | NUR ---
The patient is awake and yelling. She has awakened the other patients. She is having a repeatedly loop of thinking.
--- NOTE | 2022-05-23 00:04 | NUR ---
The patient is increasingly agitated. She is digging out soiled linen out of the barrels.
[2022-05-23] MEDS ORDERED: ziprasidone IM 20mg inj **IM only IM STA (00:08)
[2022-05-23] MEDS ORDERED: ziprasidone IM 20mg inj **IM only ONE (00:10)
--- NOTE | 2022-05-23 00:16 | NUR ---
The patient screaming and the other patient are now awake and yelling at her to "shut up"
--- NOTE | 2022-05-23 00:16 | NUR ---
Dr. Awad made aware of patient agitation. Orders received. Security on the unit and IM Geodon given. She is screaming that "Its not midnight!" "Maximus!" She does not respond to verbal reassurances or redirection.
--- NOTE | 2022-05-23 00:49 | NUR ---
Patient was screaming kicking at staff and kicking the wall and the tech called security back to the unit. Security stood by until patient able to calm down. She does appear to be asleep at this time.
--- NOTE | 2022-05-23 01:41 | NUR ---
The patient appears anthony sleeping
--- NOTE | 2022-05-23 02:41 | NUR ---
The patient is awake and using the bathroom
--- NOTE | 2022-05-23 02:59 | NUR ---
The patient is up and screaming in the middle of the unit. She is making statements that if she is not given food immediately she will "slice my throat!" "I haven't eaten in the last 3 days!"
--- NOTE | 2022-05-23 03:02 | NUR ---
The patient is waking up the other patients
--- NOTE | 2022-05-23 05:03 | NUR ---
The patient only had approximately 2 hours of broken sleep thoughout the night
--- NOTE | 2022-05-23 06:45 | NUR ---
Patient up and demanding food. States she hasn't been fed in 6 days. RN advises patient that she will eat at breakfast. Continue to monitor.
--- NOTE | 2022-05-23 07:30 | NUR ---
Patient fell asleep in her recliner. No distress observed. Continue to monitor.
--- NOTE | 2022-05-23 08:10 | NUR ---
Patient awoke and immediately saw her breakfast tray on the counter. RN took it over to patient. No distress observed. Continue to monitor.
[2022-05-23] MEDS: atorvastatin 10mg tablet PO SCH (08:49)
[2022-05-23] MEDS: lamoTRIgine 100mg tablet PO SCH ×2 (08:49→20:24)
[2022-05-23] MEDS: vortioxetine HBr tablet 5 MG TABLET PO SCH ×2 (08:49→20:24)
[2022-05-23] MEDS: clonazePAM 0.5mg tablet PO SCH ×3 (08:49→18:03)
[2022-05-23] MEDS: sennosides 8.6mg tablet PO SCH ×2 (08:50→20:24)
[2022-05-23] MEDS: lactobacillus rhamnosus 10,000 MMU CELLS/CAPSULE PO SCH ×2 (08:50→20:23)
[2022-05-23] MEDS: ferrous sulfate 325mg tablet PO SCH ×2 (08:51→20:24)
[2022-05-23] MEDS: ziprasidone 20mg capsule PO SCH ×2 (08:51→20:24)
[2022-05-23] MEDS: ascorbic acid 500mg tablet PO SCH ×2 (08:51→20:25)
[2022-05-23] MEDS: nicotine 7mg patch - 24hr TD SCH (08:51)
[2022-05-23] MEDS: multivitamins, therapeutics tablet PO SCH (08:51)
--- NOTE | 2022-05-23 10:08 | NUR ---
Patient awake and calm at this time. Continue to monitor.
--- NOTE | 2022-05-23 12:10 | NUR ---
Patient was sleeping in the recliner for about 40 minutes and awoke. RN gave patient her lunch. No distress observed at this time. Continue to monitor.
--- NOTE | 2022-05-23 14:06 | NUR ---
Patient screaming for a shower though she showered in the BR earlier this morning. Patient had a shower cap and clean clothes. Patient perservating on clothes and food. Patient screaming she is hungry. Continue to monitor.
--- NOTE | 2022-05-23 14:40 | NUR ---
RN gave patient some fresh coffee and a half of a sandwich. Patient eating. Continue to monitor.
--- NOTE | 2022-05-23 16:32 | NUR ---
Patient screaming for food and a shower. Continue to monitor.
[2022-05-23] MEDS: quetiapine fumarate ER 300mg tablet PO SCH (16:59)
--- NOTE | 2022-05-23 17:20 | NUR ---
Patient cleaned up in the BR again. RN braiding patient's hair. No distress continue to monitor.
[2022-05-23] MEDS: acetaminophen w/codeine (30MG) #3 tablet PO PRN (18:04)
--- NOTE | 2022-05-23 18:30 | NUR ---
Patient up with walker, attempting to go behind nurses station. Making demands for a clean shirt during nurse to nurse report. Attempt verbal de-escalation several times. Patient eventually goes to chair after we get her a clean shirt. Patient unwilling to wait until we were done with report. Agitation resolved after clean shirt given out.
[2022-05-23] MEDS: polyethylene glycol 3350 17gm powd pack PO SCH (20:23)
[2022-05-23] MEDS: fluvoxamine 25 MG tablet PO SCH (20:24)
[2022-05-23] MEDS: docusate sod 250mg capsule PO SCH (20:24)
[2022-05-23] MEDS: montelukast 10mg tablet PO SCH (20:24)
[2022-05-23] MEDS: acetaminophen 325mg tablet PO PRN (20:27)
--- NOTE | 2022-05-23 20:30 | NUR ---
Patient compliant with HS meds. PRN Tylenol administered for neck pain.
--- NOTE | 2022-05-23 21:30 | NUR ---
Braided patient's hair at this time. Resting comfortably up in chair. No needs noted. No s/sx of distress noted. Will continue to monitor.
--- NOTE | 2022-05-23 22:15 | NUR ---
Patient shouting out and would not lower voice. Shouting, "It's 0900 in the morning." Made several requests for patient to stop shouting since people are sleeping. This nurse showed patient on phone the time, "I don't believe you," patient states. Received orders for Geodon 20 mg IM x 1.
[2022-05-23] MEDS ORDERED: ziprasidone IM 20mg inj **IM only IM ONE ×2 (22:20→22:25)
--- NOTE | 2022-05-23 22:26 | NUR ---
Patient layed down in bed with eyes closed, will continue to monitor. If becomes agitated again will utilize Geodon order.
--- NOTE | 2022-05-23 23:50 | NUR ---
Patient woke up to use BR. Slept 1.5 hours. Currently pleasant and calm. Requested a depend and clean shirt. Cleaning up in bathroom at this time.
--- NOTE | 2022-05-24 01:00 | NUR ---
Patient woke up at 2350 to use BR. Made patient aware that she can eat and drink until midnight and then we cannot give her food/drink after that. Patient was in BR for a while and gave her some water before emptying it. Patient continued to demand food and cry out. Explained to her that she can't have food after midnight d/t am biopsy procedure. Patient agitated and continues to yell out loud and ask for food. Geodon 20 mg IM x 1 given around 0030 and patient is now asleep up in chair.
--- NOTE | 2022-05-24 03:15 | NUR ---
Patient continues to be sitting up sleeping in recliner with legs elevated. RR even/nonlabored. Appears to be comfortable. Will continue to monitor.
--- NOTE | 2022-05-24 05:11 | NUR ---
Patient woke up at 0430 and wanted a shower. Patient reports soiling her depend and wanted new clothes and to get clean. Gave her bed bath wipes and shampoo cap to clean up. Asked for food again and then went to sit up in recliner. Will continue to monitor.
--- NOTE | 2022-05-24 05:55 | NUR ---
Patient sitting up in recliner. VSS. Pleasant and calm at this time. Requesting food but has been more redirectable since 429. Will continue to monitor.
[2022-05-24] MEDS ORDERED: LORazepam 2 mg/ml vial IM ONE ×2 (06:30→18:35)
--- NOTE | 2022-05-24 06:52 | NUR ---
RN walked in and patient screaming. Inconsolable. Screaming for food and coffee. Patient's mouth dry. RN received order for Ativan and Gave the Geodon I.M. that was ordered. RN cleaned patient's face with a wet wash cloth. RN gave patient a few sips of water as patient was very dry. Patient still crying for food but calmer. "You are starving me to ! I getting skinnier and skinnier". Patient is calming down. Continue to monitor.
[2022-05-24] MEDS: atorvastatin 10mg tablet PO SCH (07:41)
[2022-05-24] MEDS: lactobacillus rhamnosus 10,000 MMU CELLS/CAPSULE PO SCH (07:41)
[2022-05-24] MEDS: ferrous sulfate 325mg tablet PO SCH (07:41)
[2022-05-24] MEDS: multivitamins, therapeutics tablet PO SCH (07:42)
[2022-05-24] MEDS: vortioxetine HBr tablet 5 MG TABLET PO SCH (07:42)
[2022-05-24] MEDS: nicotine 7mg patch - 24hr TD SCH (07:43)
[2022-05-24] MEDS: ascorbic acid 500mg tablet PO SCH ×2 (07:43→20:00)
[2022-05-24] MEDS: sennosides 8.6mg tablet PO SCH (07:43)
[2022-05-24] MEDS: clonazePAM 0.5mg tablet PO SCH ×3 (08:00→17:59)
--- NOTE | 2022-05-24 08:11 | NUR ---
Patient screaming for food. Patient has been NPO since 2229 last night. RN has given patient a few sips of water. Mouth is very dry from yelling. Continue to monitor.
--- NOTE | 2022-05-24 09:47 | NUR ---
OR TECHS HERE FOR TRANSPORT TO RECOVER.
[2022-05-24] MEDS ORDERED: ketamine 50 mg/ml 10ml vial ONE (09:59)
[2022-05-24] MEDS ORDERED: fentaNYL/PF 50MCG/1 ML 2ML syringe ONE (10:07)
--- NOTE | 2022-05-24 10:10 | NUR ---
PATIENT ARRRIVED IN PACU. VSS. STARTED IV ON LEFT HAND 22G. CONTINUE TO MONITOR.
[2022-05-24] MEDS ORDERED: ketamine 50mg/5ml syringe ONE (10:43)
[2022-05-24] MEDS ORDERED: midazolam 1 mg/ML 2ml injection ONE (10:44)
[2022-05-24 10:55] VITALS: BP 97/50
--- NOTE | 2022-05-24 10:55 | NUR ---
Received from OR via HOSPITAL, accompanied by Anesthesiologist and report given by Anesthesiologist. PATIENT WAKING UP, NO S/S OF PAIN, V/S WNL, PIV 22G LEFT HAND, LEFT CHEEK XEROFORM OPEN TO AIR DRESSING C/D/I. Addendum: 05/24/22 at 1128 by Brayan Morel RN Amended: Links added.
[2022-05-24 11:00] VITALS: BP 97/50
[2022-05-24 11:10] VITALS: BP 97/57
[2022-05-24 11:20] VITALS: BP 101/53
[2022-05-24 11:30] VITALS: BP 96/57
--- NOTE | 2022-05-24 11:35 | NUR ---
PATIENT HAS MET ALL CRITERIA FOR TRANSFER TO THE [facility]. VSS. DRESSINGS INTACT. BED LOW, CALL LIGHT PRESENT AND 2 RAILS UP. RN PRESENT TO ACCEPT CARE OF PATIENT AND REPORT HAS BEEN CALLED. ALL QUESTIONS ANSWERED TO ACCEPTING RN. Addendum: 05/24/22 at 1142 by Brayan Morel RN Amended: Links added.
--- NOTE | 2022-05-24 11:40 | NUR ---
Patient awake and brought back to her room from [facility]. recovery. Patient calm and coopertive. Continue to monitor.
[2022-05-24] MEDS: ziprasidone 20mg capsule PO SCH (13:16)
[2022-05-24] MEDS: lamoTRIgine 100mg tablet PO SCH (13:17)
[2022-05-24] MEDS: acetaminophen w/codeine (30MG) #3 tablet PO PRN (15:17)
[2022-05-24] MEDS: quetiapine fumarate ER 300mg tablet PO SCH (16:59)
--- NOTE | 2022-05-24 18:20 | NUR ---
Patient was resting quietly in her chair. She suddenly jumped up and moved quickly to behind the nurses station. The patient grabbed at other patiens belongings, sack by sack, she screamed and wrestled with staff. Patient is delusional. She refuses to return to bed. Patient is screaming "mother f---eer!" This ghost writer assisted primary care RN who is going off shift. This ghost writer contacted ER MD, he was advised of situation. VAMSHI Monroe and VAMSHI Mandujano were ordered.
[2022-05-24] MEDS ORDERED: ziprasidone IM 20mg inj **IM only IM ONE (18:35)
--- NOTE | 2022-05-24 18:57 | NUR ---
This patient had been escorted to her bed by security. Geodon 20 mg and Ativan 2 mg IM were both given. The patient was then assisted to the bathroom to toilet.
--- NOTE | 2022-05-24 19:20 | NUR ---
Patient is sitting in her chair. No distress. Patient is cooperative at this moment.
--- NOTE | 2022-05-24 19:46 | NUR ---
The patient remains sleeping quietly. Good color, regular resp. This financial writer replaced her Xeroform dressing and used a light covering of 4X4's over that. The patient is now using a soft collar. As reported to this financial writer at shift change the patient used a soft collar prior to coming to [facility] in her daily living situation.
[2022-05-24] MEDS: polyethylene glycol 3350 17gm powd pack PO SCH (21:00)
--- NOTE | 2022-05-24 23:57 | NUR ---
Patient is awake, she was assisted to the toilet to void. This chief underwriter will attempt to pass midications if patient is compliant.
[2022-05-25] MEDS: fluvoxamine 25 MG tablet PO SCH ×2 (00:16→21:00)
[2022-05-25] MEDS: acetaminophen w/codeine (30MG) #3 tablet PO PRN ×3 (00:17→20:03)
[2022-05-25] MEDS: clonazePAM 0.5mg tablet PO PRN ×4 (00:18→20:03)
[2022-05-25] MEDS: vortioxetine HBr tablet 5 MG TABLET PO SCH ×4 (00:22→20:01)
[2022-05-25] MEDS: lamoTRIgine 100mg tablet PO SCH ×4 (00:23→20:03)
[2022-05-25] MEDS: ferrous sulfate 325mg tablet PO SCH ×4 (00:23→20:03)
[2022-05-25] MEDS: lactobacillus rhamnosus 10,000 MMU CELLS/CAPSULE PO SCH ×4 (00:23→20:02)
[2022-05-25] MEDS: sennosides 8.6mg tablet PO SCH ×4 (00:23→20:04)
[2022-05-25] MEDS: montelukast 10mg tablet PO SCH ×2 (00:24→21:00)
[2022-05-25] MEDS: ziprasidone 20mg capsule PO SCH ×4 (00:31→20:02)
[2022-05-25] MEDS: docusate sod 250mg capsule PO SCH ×3 (00:41→21:00)
--- NOTE | 2022-05-25 00:48 | NUR ---
Patient is sitting up in her recliner chair. She is eating a sandwich, patient complied with nearly all night medications. Patient is mumbling. Patient is in direct view from the nurses station.
--- NOTE | 2022-05-25 02:18 | NUR ---
Patient is sleeping in a sitting position. No distress noted. Resp 12. Good color.
--- NOTE | 2022-05-25 03:18 | NUR ---
Patient is awake and sitting upright on her bed, she is quietly eating some yogurt.
--- NOTE | 2022-05-25 04:15 | NUR ---
Patient is awake, sitting on her bed, she brushes her hair. Patient denies it is around 0415 in the am. She argues it is in the afternoon. She does request a shower. The patient is informed that that would be a decision of the day shift RN.
--- NOTE | 2022-05-25 04:37 | NUR ---
Patient requires occasional redirection to remain in her bed or recliner. She is not labile at this time.
--- NOTE | 2022-05-25 05:09 | NUR ---
Patient is sleeping quietly. In direct view from nurses station.
--- NOTE | 2022-05-25 05:52 | NUR ---
Patient is awake, she ambulates with her walker. Patient is redirected back to her bed. She complies.
--- NOTE | 2022-05-25 06:30 | NUR ---
Pt is awake wandering around the unit using FWW stating she wants a shower and she's hungry.
[2022-05-25] MEDS: atorvastatin 10mg tablet PO SCH (07:19)
[2022-05-25] MEDS: ascorbic acid 500mg tablet PO SCH ×3 (07:20→20:04)
[2022-05-25] MEDS: clonazePAM 0.5mg tablet PO SCH ×3 (07:20→17:02)
[2022-05-25] MEDS: multivitamins, therapeutics tablet PO SCH (07:20)
[2022-05-25] MEDS: nicotine 7mg patch - 24hr TD SCH (07:26)
--- NOTE | 2022-05-25 08:18 | NUR ---
Pt is eating breakfast.
--- NOTE | 2022-05-25 09:23 | NUR ---
Pt brushed her hair, washed up and changed into clean clothes.
--- NOTE | 2022-05-25 11:10 | NUR ---
Lesion left cheek was bleeding and dripping on the floor. Cleansed and applied clean, dry dressing.
--- NOTE | 2022-05-25 12:09 | NUR ---
Pt is eating her lunch.
--- NOTE | 2022-05-25 14:07 | NUR ---
Pt asked for coffee and was provided with a cup of decaf.
[2022-05-25] MEDS: quetiapine fumarate ER 300mg tablet PO SCH (15:30)
--- NOTE | 2022-05-25 15:40 | NUR ---
Pt has a [facility] Marisa from the [facility] will be working with the patient.
--- NOTE | 2022-05-25 16:00 | NUR ---
Regional workers left.
--- NOTE | 2022-05-25 17:28 | NUR ---
Pt is getting restless. Pt is confused. Pt states that she already had dinner and she is starving. (Dinner does not arrive until 1800.)
--- NOTE | 2022-05-25 18:38 | NUR ---
Patient is laying in her bed awake, no distress noted. Patient ate all of her dinner save for the salad.
--- NOTE | 2022-05-25 19:59 | NUR ---
Patient is awake, sitting at bedside. Minor anxiety. Patient complains of generalized pain. PRN medications and scheduled medications are being given.
--- NOTE | 2022-05-25 20:16 | NUR ---
This patient is sitting up in chair. She is becoming aggitated but is not experiencing any outbursts. She remains delusional. Patient is in direct view from nurses station. Patient is suddenly refusing all meds she requested. Rx meds will not be wasted yet as this resume writer is working to get patient to comply.
[2022-05-25] MEDS: polyethylene glycol 3350 17gm powd pack PO SCH (21:00)
--- NOTE | 2022-05-25 21:34 | NUR ---
Patient is still refusing medications, all medications were wasted. The patient is giving herself a sponge bath. The patient is less labile at this time.
--- NOTE | 2022-05-25 22:21 | NUR ---
Patient was up to void.
[2022-05-25] MEDS ORDERED: acetaminophen w/codeine (30MG) #3 tablet PO ONE (22:30)
[2022-05-25] MEDS ORDERED: ziprasidone 20mg capsule PO ONE (22:30)
--- NOTE | 2022-05-25 23:35 | NUR ---
Patient is awake and argumentative. She believes it is 3:30 PM. The patient is demanding more food, she has eaten multiple times.
--- NOTE | 2022-05-26 01:50 | NUR ---
Patient is sleeping quietly in a high fowlers position in her recliner.
--- NOTE | 2022-05-26 03:07 | NUR ---
Patient is sleeping quietly in a sitting position.
--- NOTE | 2022-05-26 04:43 | NUR ---
Patient is awake and has been so for a couple of hours. Patient needs to be redirected at times but has not been labile.
--- NOTE | 2022-05-26 06:30 | NUR ---
Patient is awake c/o being hungry. Patient given yogurt.
[2022-05-26] MEDS: nicotine 7mg patch - 24hr TD SCH (08:00)
[2022-05-26] MEDS: vortioxetine HBr tablet 5 MG TABLET PO SCH ×2 (08:10→20:22)
[2022-05-26] MEDS: sennosides 8.6mg tablet PO SCH ×2 (08:10→20:23)
[2022-05-26] MEDS: clonazePAM 0.5mg tablet PO SCH ×3 (08:10→16:49)
[2022-05-26] MEDS: ziprasidone 20mg capsule PO SCH ×2 (08:11→20:22)
[2022-05-26] MEDS: atorvastatin 10mg tablet PO SCH (08:11)
[2022-05-26] MEDS: lamoTRIgine 100mg tablet PO SCH ×2 (08:11→20:22)
[2022-05-26] MEDS: lactobacillus rhamnosus 10,000 MMU CELLS/CAPSULE PO SCH ×2 (08:11→20:24)
[2022-05-26] MEDS: ferrous sulfate 325mg tablet PO SCH ×2 (08:11→20:24)
[2022-05-26] MEDS: ascorbic acid 500mg tablet PO SCH ×2 (08:11→20:22)
[2022-05-26] MEDS: multivitamins, therapeutics tablet PO SCH (08:11)
--- NOTE | 2022-05-26 08:35 | NUR ---
Patient eating breakfast and is requesting more food.
--- NOTE | 2022-05-26 11:00 | NUR ---
Patient wandering the unit making requests for food.
--- NOTE | 2022-05-26 12:35 | NUR ---
Patient in the bathroom to void and put on new pullup, along with clean clothing.
[2022-05-26] MEDS: acetaminophen w/codeine (30MG) #3 tablet PO PRN (13:26)
--- NOTE | 2022-05-26 16:29 | NUR ---
Patient awake and requesting breakfast, "You people are starving me."
--- NOTE | 2022-05-26 16:30 | NUR ---
Patient does not believe it is afternoon. She keeps asking for breakfast.
[2022-05-26] MEDS: quetiapine fumarate ER 300mg tablet PO SCH (16:49)
--- NOTE | 2022-05-26 18:32 | NUR ---
PT IS AWAKE AND PLEASENTLY CONVERSING WITH STAFF AFTER EATING HER DINNER.
--- NOTE | 2022-05-26 19:42 | NUR ---
PT IS CONVERSING WITH STAFF AND COOPERATING WITH DIRECTIONS AT THIS TIME. PT IS REQUESTING A NEW BANDAID FOR THE WOUND ON HER FACE AND ALSO ASKING FOR COFFEE.
[2022-05-26] MEDS: montelukast 10mg tablet PO SCH (20:23)
[2022-05-26] MEDS: docusate sod 250mg capsule PO SCH (20:24)
[2022-05-26] MEDS: polyethylene glycol 3350 17gm powd pack PO SCH (20:25)
[2022-05-26] MEDS: fluvoxamine 25 MG tablet PO SCH (20:25)
--- NOTE | 2022-05-26 21:10 | NUR ---
PT NOW SITTIN IN RECLINER IN HER ROOM. PT APPEARS TO BE ASLEEP AT THIS TIME. RR ARE EVEN AND UNLABORED.
--- NOTE | 2022-05-26 22:14 | NUR ---
PT IS AWAKE AND WONDERING ABOUT HER ROOM. PT HAS DECAF COFFEE AND CRACKERS.
--- NOTE | 2022-05-26 23:56 | NUR ---
PT IS LYING ON HER BED IN ER ROOM 23. PT IS IN AND OUT OF SLEEP AT THIS TIME. THERE IS NO DISTRESS APPARENT.
--- NOTE | 2022-05-27 01:00 | NUR ---
PT CONTINUES TO REST QUIETLY IN BED. PT IS IN AND OUT OF SLEEP. NO DISTRESS OBSERVED AT THIS TIME.
--- NOTE | 2022-05-27 02:36 | NUR ---
PT IS AWAKE AND INTERACTING WITH STAFF. PT GIVEN A NEW BANDAGE FOR THE FACIAL WOUND, NEW CLOTHING, AND NEW BEDDING. PT IS NOW SITTING IN RECLINER DRINKING DECAF COFFEE.
--- NOTE | 2022-05-27 02:43 | NUR ---
Note rejijacki in ED - 05/27/22 at 0301 by CECILY The patient is under the care of an DIRECTOR SOCIAL WELFARE this shift. The Nurse and Tech have been providing basic hygiene and care to this patient over the past couple of hours. In addition to dressing changes to patients basal cell carcinoma of the left face an exam was done to the bilateral lower extrimities. Both feet have had recent increases in edema. Redness is present in both feet, edema is 2 plus. The edema is asending to the knee level bilaterally. Both legs are painful to touch. The skin does not feel hot to touch.
--- NOTE | 2022-05-27 03:01 | NUR ---
The patient is under the care of an BILLING AND INSURANCE COORDINATOR this shift. The Nurse and Tech have been providing basic hygiene and care to this patient over the past couple of hours. 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 Both feet have had recent increases in edema. Redness is present in both feet, edema is 2 plus. The edema is asending to the knee level bilaterally. Both legs are painful to touch. The skin does not feel hot to touch. Photographs will be taken for documentation. ED/MD will be advised of assessment.
--- NOTE | 2022-05-27 03:30 | NUR ---
THE PT IS AWAKE AND SITTING IN THE RECLINER AT BEDSIDE. THE PT IS REQUESTING DECAFF COFFEE AT THIS TIME AND SNACKS. PT IS PLEASANTLY INTERACTING AND MAKING REQUESTS APPROPRIATLY.
[2022-05-27] MEDS: acetaminophen w/codeine (30MG) #3 tablet PO PRN ×2 (04:23→13:41)
--- NOTE | 2022-05-27 04:23 | NUR ---
APAP #3 given for bilat leg pain.
--- NOTE | 2022-05-27 04:36 | NUR ---
THE PT IS DRINKING DECAF COFFEE REQUESTED AND MUMBLING TO SELF. PT IS OCCASIONALY WALKING ABOUT THE ROOM.
--- NOTE | 2022-05-27 05:51 | NUR ---
PT IS AWAKE AND EATING SNACKS IN THE RECLINER AT BEDSIDE. PT IS MUMBLING TO HERSELF AND PLEASANTLY INTERACTING WITH STAFF ON AND OFF. PT IS NOT SHOWING ANY S/S OF DISTRESS AND DOES NOT HAVE ANY REQUESTS/NEEDS AT THIS TIME.
--- NOTE | 2022-05-27 07:11 | NUR ---
Received Pt standing near her bed. Pt walked to nursing station and talked with staff and returned to her bed. Pt again asked for her books which were given to her.
[2022-05-27] MEDS: sennosides 8.6mg tablet PO SCH ×2 (07:57→20:12)
[2022-05-27] MEDS: lactobacillus rhamnosus 10,000 MMU CELLS/CAPSULE PO SCH ×2 (07:57→20:12)
[2022-05-27] MEDS: atorvastatin 10mg tablet PO SCH (07:58)
[2022-05-27] MEDS: vortioxetine HBr tablet 5 MG TABLET PO SCH ×2 (07:58→20:12)
[2022-05-27] MEDS: ferrous sulfate 325mg tablet PO SCH ×2 (07:58→20:13)
[2022-05-27] MEDS: ascorbic acid 500mg tablet PO SCH ×2 (07:58→20:12)
[2022-05-27] MEDS: lamoTRIgine 100mg tablet PO SCH ×2 (07:58→20:12)
[2022-05-27] MEDS: multivitamins, therapeutics tablet PO SCH (07:58)
[2022-05-27] MEDS: ziprasidone 20mg capsule PO SCH ×2 (07:59→20:13)
[2022-05-27] MEDS: clonazePAM 0.5mg tablet PO SCH ×3 (07:59→16:10)
[2022-05-27] MEDS: nicotine 7mg patch - 24hr TD SCH (08:00)
--- NOTE | 2022-05-27 09:13 | NUR ---
Pt ate breakfast well and took AM meds w/o issue. Pt redirected from exits a few times w/o incident. Pt in good mood overall and making needs known appropriately.
--- NOTE | 2022-05-27 11:06 | NUR ---
Pt scratched her nose and was bleeding. Her face was cleaned and a band aid placed over scab area on nose and tolerated well by her. Pt used bathroom and returned to her bed.
--- NOTE | 2022-05-27 13:14 | NUR ---
Pt ate approx. 25% of lunch, reporting it doesn't taste good. Pt napped before lunch and was incontinent of urine while asleep. Pt cleaned and given new clothes. Her bed was stripped and she returned to her bed area.
--- NOTE | 2022-05-27 15:12 | NUR ---
Pt taken for a "walk" in wheel chair around hospital, and dressing on face changed. Pt appreciative and interacting with staff appropriately. Female staff braded her hair and she used bathroom again.
[2022-05-27] MEDS: quetiapine fumarate ER 300mg tablet PO SCH (16:10)
--- NOTE | 2022-05-27 16:23 | NUR ---
Pt in bed sleeping w/o distress at this time.
--- NOTE | 2022-05-27 18:07 | NUR ---
Pt sitting on edge of her bed eating dinner. Pt took all meds w/o issue today and had no outbursts on this shift. Pt handled limits and rewards well today and she smiled a bit this shift.
[2022-05-27] MEDS: polyethylene glycol 3350 17gm powd pack PO SCH (20:13)
[2022-05-27] MEDS: fluvoxamine 25 MG tablet PO SCH (20:13)
[2022-05-27] MEDS: docusate sod 250mg capsule PO SCH (20:14)
[2022-05-27] MEDS: montelukast 10mg tablet PO SCH (20:26)
--- NOTE | 2022-05-28 00:45 | NUR ---
Pt awake at this time sitting up in bed. Pt has slept for only short periods of time this shift. At start of shift was was pleasant and cooperative with care. She took all medications without a problem. Around 2100 while staff was busy with other pts eloped off unit. Was returned to unit by security who found her at the front door. Pt obviously found this humerous chuckled several times when asked where she was going or why she left her walker. She became moderatly demanding and aurgumentative this later in shift. Arguing about what time is is or that she did not have her diner. She pulled the dressing off her face but did allow it to be reapplied. It has been possible to distract and appease her so far.
--- NOTE | 2022-05-28 01:08 | NUR ---
Pt is laying in bed asleep. RR16
[2022-05-28] MEDS: acetaminophen w/codeine (30MG) #3 tablet PO PRN ×2 (01:54→20:53)
[2022-05-28] MEDS: clonazePAM 0.5mg tablet PO PRN (01:54)
--- NOTE | 2022-05-28 02:29 | NUR ---
Pt sleeping at this time. Has been restless given klonipin for anxiety and medicated for leg pain. BLE endematous.
--- NOTE | 2022-05-28 04:58 | NUR ---
Pt slept for only a short time. Eloped from unit when staff was distracted. Found in front waiting room. Pt laughed and said she was having fun on way back to unit. Pt lying in bed awake at this time.
--- NOTE | 2022-05-28 06:45 | NUR ---
Patient up and down. Patient did not sleep last night. No distress observed at this time. Continue to monitor.
--- NOTE | 2022-05-28 08:17 | NUR ---
Patient eating breakfast. No distress observed. Continue to monitor.
[2022-05-28] MEDS: sennosides 8.6mg tablet PO SCH ×2 (08:40→20:02)
[2022-05-28] MEDS: lactobacillus rhamnosus 10,000 MMU CELLS/CAPSULE PO SCH ×2 (08:40→20:00)
[2022-05-28] MEDS: clonazePAM 0.5mg tablet PO SCH ×3 (08:41→17:00)
[2022-05-28] MEDS: lamoTRIgine 100mg tablet PO SCH ×2 (08:41→20:02)
[2022-05-28] MEDS: atorvastatin 10mg tablet PO SCH (08:41)
[2022-05-28] MEDS: ferrous sulfate 325mg tablet PO SCH ×2 (08:41→20:02)
[2022-05-28] MEDS: ziprasidone 20mg capsule PO SCH ×2 (08:41→20:02)
[2022-05-28] MEDS: ascorbic acid 500mg tablet PO SCH ×2 (08:42→20:08)
[2022-05-28] MEDS: multivitamins, therapeutics tablet PO SCH (08:42)
[2022-05-28] MEDS: nicotine 7mg patch - 24hr TD SCH (08:42)
[2022-05-28] MEDS: vortioxetine HBr tablet 5 MG TABLET PO SCH ×2 (08:42→20:02)
--- NOTE | 2022-05-28 10:40 | NUR ---
Patient in BR with Angelita Farmer. Audra is assisting patient in washing her hair and body. Continue to monitor.
--- NOTE | 2022-05-28 11:35 | NUR ---
Lj cuellar in [facility] - 05/28/22 at 1145 by HEATHER RN gloria y
--- NOTE | 2022-05-28 11:45 | NUR ---
RN placed patient Nystop under patient's pannis and left breast. Patient has a bad yeast infection to these areas. Continue to monitor.
--- NOTE | 2022-05-28 12:26 | NUR ---
Patient sleeping. Continue to monitor.
--- NOTE | 2022-05-28 13:55 | NUR ---
Patient took a 2 hour nap. Patient is awake and eating lunch. No distress observed. Continue to monitor.
[2022-05-28] MEDS: quetiapine fumarate ER 300mg tablet PO SCH (15:59)
--- NOTE | 2022-05-28 16:05 | NUR ---
Patient was in the w/c moving around but has not moved to the walker. No distress observed. Continue to monitor.
--- NOTE | 2022-05-28 17:44 | NUR ---
Patient eating dinner. No distress observed. Continue to monitor.
--- NOTE | 2022-05-28 19:00 | NUR ---
pt resting on bed no visual or verbal signs of distress nor discomfort
[2022-05-28] MEDS: docusate sod 250mg capsule PO SCH (20:52)
[2022-05-28] MEDS: montelukast 10mg tablet PO SCH (20:52)
[2022-05-28] MEDS: fluvoxamine 25 MG tablet PO SCH (20:52)
[2022-05-28] MEDS: polyethylene glycol 3350 17gm powd pack PO SCH (20:52)
--- NOTE | 2022-05-29 00:05 | NUR ---
PT SLEEPING NO VISUAL SIGNS OF DISCOMFORT NOR DISTRESS
--- NOTE | 2022-05-29 04:00 | NUR ---
PT AWAKE TECH HELPING CHANGE INTO NEW GREEN SCRUBS, BED LINEN CHANGED . PT SITTING IN WHEEL CHAIR REQUESTING PAIN MED. STATES BODY AND FACE HURTS. PT INFORMED PRM MED CAN BE GIVEN AT 6AM.
--- NOTE | 2022-05-29 05:45 | NUR ---
NOTED LEFT EYE SWELLING. PT STATES IT "DOES NOT HURT DIDNT EVEN KNOW IT WAS SWOLLEN". MD INFORMED. AWAITING FURTHER ORDERS
--- NOTE | 2022-05-29 06:35 | NUR ---
Patient awake and not feeling well. Left eye is slightly swollen (same side as facial growth). Continue to monitor.
--- NOTE | 2022-05-29 08:35 | NUR ---
Patient eating breakfast. No distress observed. Continue to monitor.
[2022-05-29] MEDS: vortioxetine HBr tablet 5 MG TABLET PO SCH ×3 (08:45→20:41)
[2022-05-29] MEDS: atorvastatin 10mg tablet PO SCH (08:45)
[2022-05-29] MEDS: ziprasidone 20mg capsule PO SCH ×3 (08:45→20:41)
[2022-05-29] MEDS: sennosides 8.6mg tablet PO SCH ×3 (08:45→20:42)
[2022-05-29] MEDS: ferrous sulfate 325mg tablet PO SCH ×3 (08:45→20:42)
[2022-05-29] MEDS: clonazePAM 0.5mg tablet PO SCH ×3 (08:45→17:51)
[2022-05-29] MEDS: ascorbic acid 500mg tablet PO SCH ×3 (08:46→20:42)
[2022-05-29] MEDS: lactobacillus rhamnosus 10,000 MMU CELLS/CAPSULE PO SCH ×3 (08:46→20:41)
[2022-05-29] MEDS: lamoTRIgine 100mg tablet PO SCH ×3 (08:46→20:42)
[2022-05-29] MEDS: nicotine 7mg patch - 24hr TD SCH (08:46)
[2022-05-29] MEDS: multivitamins, therapeutics tablet PO SCH (08:46)
--- NOTE | 2022-05-29 10:26 | NUR ---
Patient moving around the department. No distress observed. Continue to monitor.
--- NOTE | 2022-05-29 11:50 | NUR ---
Patient removed her left cheek bandage and stuck her fingers in the growth and started bleeding. TANYA Edmonds and Marleny Harman cleaned and redressed the wound. Also cleaned patient's neck and changed her gown. Lunch had just gotten there but patient had to wait for the cleaning and new dressing to wound. Continue to monitor.
--- NOTE | 2022-05-29 12:15 | NUR ---
Patient eating lunch. No distress observed. Continue to monitor.
--- NOTE | 2022-05-29 14:40 | NUR ---
Patient sitting in W/C then moving to walker. No distress observed. Continue to monitor.
--- NOTE | 2022-05-29 15:10 | NUR ---
RN finally got patient to lay down. RN cleansed under patient's pannis and groin area with a warm soapy water, dried with towel and placed Nystatin powder to all the areas. Under left breast looks much better. Pannis if looking better but bilateral groin still has some bright red areas. Continue to monitor.
[2022-05-29] MEDS: quetiapine fumarate ER 300mg tablet PO SCH (17:51)
[2022-05-29] MEDS: acetaminophen w/codeine (30MG) #3 tablet PO PRN (17:55)
--- NOTE | 2022-05-29 19:51 | NUR ---
The patient has been sitting up in her chair. She was cooperative with the evening assessment. She stated that she was tired of being here in the ER. She is not able to verbalize a plan for food, longterm or clothing if she were to leave the hospital. She is currently washing up and getting ready for bed.
[2022-05-29] MEDS: docusate sod 250mg capsule PO SCH ×2 (20:41→21:00)
[2022-05-29] MEDS: fluvoxamine 25 MG tablet PO SCH ×2 (20:41→21:00)
[2022-05-29] MEDS: polyethylene glycol 3350 17gm powd pack PO SCH ×2 (20:41→21:00)
[2022-05-29] MEDS: montelukast 10mg tablet PO SCH ×2 (20:42→21:00)
--- NOTE | 2022-05-29 20:52 | NUR ---
The patient had an episode of agitation and she ripped to curtains down from their hooks. Security was called but she did turn around and sat by her bed. She is very irritable. She refused her night medications and repeatedly stated that it was morning and would not take her night medications. She is unable to be redirected from believing it was night time. She has refused her medications twice at this point.
--- NOTE | 2022-05-29 21:04 | NUR ---
The patient was re-offered her medications but again she is very irritable and refused.
--- NOTE | 2022-05-29 21:30 | NUR ---
Patient attempted to leave the unit and tore down curtain to the unit.
--- NOTE | 2022-05-29 21:38 | NUR ---
The patient is adament about refusing all of her HS medications.
--- NOTE | 2022-05-29 23:24 | NUR ---
The patient was sleeping for approximately one hour but is now getting up out of bed
--- NOTE | 2022-05-30 01:01 | NUR ---
The patient appears to be sleeping
--- NOTE | 2022-05-30 03:05 | NUR ---
The patient is awake to use the bathroom
--- NOTE | 2022-05-30 03:49 | NUR ---
The patient is yelling and screaming and waking up her peers.
[2022-05-30] MEDS ORDERED: ziprasidone IM 20mg inj **IM only ONE (03:56)
--- NOTE | 2022-05-30 04:04 | NUR ---
IM Geodon given. The patient accepted the IM after she was told it was not ativan.
--- NOTE | 2022-05-30 05:07 | NUR ---
The patient appears to be sleeping
--- NOTE | 2022-05-30 06:44 | NUR ---
Patient was up when RN first arrived. Patient is now asleep in bed. Continue to monitor.
[2022-05-30] MEDS: clonazePAM 0.5mg tablet PO SCH ×3 (08:09→17:30)
[2022-05-30] MEDS: ziprasidone 20mg capsule PO SCH ×2 (08:09→20:53)
[2022-05-30] MEDS: atorvastatin 10mg tablet PO SCH (08:09)
[2022-05-30] MEDS: vortioxetine HBr tablet 5 MG TABLET PO SCH ×2 (08:09→20:53)
[2022-05-30] MEDS: sennosides 8.6mg tablet PO SCH ×2 (08:09→20:53)
[2022-05-30] MEDS: nicotine 7mg patch - 24hr TD SCH (08:10)
[2022-05-30] MEDS: ascorbic acid 500mg tablet PO SCH ×2 (08:10→20:53)
[2022-05-30] MEDS: multivitamins, therapeutics tablet PO SCH (08:10)
[2022-05-30] MEDS: lamoTRIgine 100mg tablet PO SCH ×2 (08:10→20:53)
[2022-05-30] MEDS: lactobacillus rhamnosus 10,000 MMU CELLS/CAPSULE PO SCH ×2 (08:10→20:52)
[2022-05-30] MEDS: ferrous sulfate 325mg tablet PO SCH ×2 (08:10→20:53)
--- NOTE | 2022-05-30 08:11 | NUR ---
Patient eating breakfast. No distress observed. continue to monitor.
--- NOTE | 2022-05-30 08:53 | NUR ---
PT UP WITH WALKER, ASKING FOR NEW DEPENDS. NEW DEPENDS PROVIDED. PT IN RESTROOM.
--- NOTE | 2022-05-30 10:32 | NUR ---
Patient's hair is braided. Patient sitting in her wheelchair sipping on coffee. No distress observed. continue to monitor.
--- NOTE | 2022-05-30 12:27 | NUR ---
Patient eating lunch. No distress observed. Continue to monitor.
--- NOTE | 2022-05-30 14:18 | NUR ---
Patient fell asleep in bed. No distress observed. Continue to monitor.
--- NOTE | 2022-05-30 16:33 | NUR ---
pt to shower with primary rn
--- NOTE | 2022-05-30 17:00 | NUR ---
while patient was in the shower, bed changed, sheets changed, fresh pillows and a room wipe down was done.
[2022-05-30] MEDS: quetiapine fumarate ER 300mg tablet PO SCH (17:29)
--- NOTE | 2022-05-30 18:30 | NUR ---
ASSUMED CARE OF PATIENT, NOTED PATIENT TO BE RELAXED. RECEIVED IN REPORT THAT PATIENT HASN'T BEEN ACTIVELY TRYING TO ELOPE AND YELLING OUT TODAY. THIS NURSE EXPERIENCE IS PATIENT HAS BEEN MORE RESERVED AND PEACEFUL. PATIENT ASKED WHEN BREAKFAST WAS, REORIENTED PATIENT BY TELLING HER THAT IT IS EVENING TIME. OFFERED SNACK. PATIENT TYPICALLY WILL ARGUE THAT IT'S NOT NIGHT TIME AND THAT IS IS DAY TIME AND PATIENT DID NOT DO THAT AT THIS TIME. WILL ADMINISTER MEDS AROUND 2029. PATIENT UP IN CHAIR. ENCOURAGED HER TO KEEP HER HANDS OFF HER FACE THE SCRATCHING CAUSES THE TUMOR TO BLEED. WILL CONTINUE TO MONITOR.
--- NOTE | 2022-05-30 19:50 | NUR ---
PATIENT UP IN CHAIR, QUIETLY ENTERTAINING HERSELF. CLEANED LEFT SIDE OF FACE IT WAS BLEEDING FROM SCRATCHING. APPLIED DRESSING AND ENCOURAGED HER TO KEEP HER FINGERS OFF OF IT SO IT DOESN'T BLEED. PATIENT RESTLESS, CONSTANTLY MOVING, CHANGING HER HAIRSTYLE AND REPOSITIONING.
[2022-05-30] MEDS: docusate sod 250mg capsule PO SCH (20:52)
[2022-05-30] MEDS: polyethylene glycol 3350 17gm powd pack PO SCH (20:52)
[2022-05-30] MEDS: montelukast 10mg tablet PO SCH (20:53)
[2022-05-30] MEDS: fluvoxamine 25 MG tablet PO SCH (20:53)
--- NOTE | 2022-05-30 21:15 | NUR ---
PATIENT BEHAVIOR CHANGED AND STARTED SPEAKING THEN SHOUTING PROFANITIES. ASKED PATIENT TO STOP. PATIENT DID NOT. CONTINUED TO USE VERBAL DE-ESCALATION. PATIENT QUIETED DOWN AND CONTINUED TO USE PROFANITY IN AN AGGRESSIVE MANNER. REDIRECTION HELPED SOME AND OFFERING TO HELP PATIENT GET CLEANED UP AND CHANGE HER GOWN. WILL CONTINUE TO MONITOR.
[2022-05-30] MEDS: nystatin 15 GM powder TP PRN (21:31)
[2022-05-30] MEDS: acetaminophen w/codeine (30MG) #3 tablet PO PRN (21:33)
[2022-05-30] MEDS: clonazePAM 0.5mg tablet PO PRN (21:34)
--- NOTE | 2022-05-30 23:00 | NUR ---
PATIENT BECAME AGITATED. DEMANDING FOOD. GAVE PATIENT FOOD WITH NOC MEALS. REFUSES TO BELIEVE WE'VE GIVEN HER SNACK WITH HS MEDS. SHOUTING PROFANITIES, USING "FUCK" WITH EVERY OTHER WORD. ASKED PATIENT TO STOP USING THAT LANGUAGE AND PATIENT CONTINUED TO DO SO AND YELLING EVEN LOUDER, "I'M HUNGRY." PATIENT HAS SALAD AT BEDSIDE AND REFUSES TO EAT IT, CONTINUES ON , "I'M HUNGRY." MADE PATIENT AWARE THAT IF SHE CONTINUES TO BE DISRUPTIVE WHILE PEOPLE ARE SLEEPING THAT WE'LL NEED TO MEDICATE HER FOR HER AGITATION. ATTEMPTED VERBAL DE-ESCALATION IN WHICH WAS UNSUCCESSFUL. RECEIVED GEODON 20 MG IM X1 ORDER FOR AGITATION.
[2022-05-30] MEDS ORDERED: ziprasidone IM 20mg inj **IM only IM ONE (23:05)
--- NOTE | 2022-05-30 23:33 | NUR ---
ATTEMPTED MORE VERBAL DE-ESCALATION, UNSUCCESSFUL SO FAR. GEODON 20 MG IM X 1 GIVEN TO LEFT DELTOID AT THIS TIME. SECURITY AT BEDSIDE FOR SUPPORT. PATIENT CONTINUES TO YELL. WILL CONTINUE TO MONITOR.
--- NOTE | 2022-05-30 23:45 | NUR ---
NOTED PATIENT TO BE SLEEPING, RR EVEN/NONLABORED. NO S/SX OF DISTRESS NOTED. WILL CONTINUE TO MONITOR.
--- NOTE | 2022-05-31 01:15 | NUR ---
PATIENT UP TO BR. PATIENT LEAVING A WET TRAIL FROM INCONTINENT EPISODE. PATIENT GOT CLEANED UP AND GIVEN CLEAN PANTS AND SOCKS. WALKED BACK TO BED AND LAID DOWN. CLEANED FLOOR AND CALLED HOUSEKEEPING TO CLEAN FLOOR. WILL CONTINUE TO MONITOR.
--- NOTE | 2022-05-31 03:24 | NUR ---
Patient appears to be sleeping. Noted to be on back resting comfortably. RR even/nonlabored. No s/sx of distress noted. Will continue to monitor.
--- NOTE | 2022-05-31 04:30 | NUR ---
Patient awake and eating snacks. Sitting on side of bed drinking milk. No complaints noted. Will continue to monitor.
--- NOTE | 2022-05-31 05:57 | NUR ---
Patient resting in bed with eyes closed. No needs noted at this time. RR even/nonlabored. Will continue to monitor.
--- NOTE | 2022-05-31 06:34 | NUR ---
Patient is resting comfortably in bed.
[2022-05-31] MEDS: clonazePAM 0.5mg tablet PO SCH ×3 (08:00→17:32)
[2022-05-31] MEDS: ziprasidone 20mg capsule PO SCH ×2 (08:59→21:00)
[2022-05-31] MEDS: vortioxetine HBr tablet 5 MG TABLET PO SCH ×2 (08:59→20:59)
[2022-05-31] MEDS: atorvastatin 10mg tablet PO SCH (08:59)
[2022-05-31] MEDS: sennosides 8.6mg tablet PO SCH ×2 (08:59→20:59)
[2022-05-31] MEDS: lamoTRIgine 100mg tablet PO SCH ×2 (09:00→21:01)
[2022-05-31] MEDS: ascorbic acid 500mg tablet PO SCH ×2 (09:00→21:00)
[2022-05-31] MEDS: ferrous sulfate 325mg tablet PO SCH ×2 (09:00→21:01)
[2022-05-31] MEDS: multivitamins, therapeutics tablet PO SCH (09:00)
[2022-05-31] MEDS: lactobacillus rhamnosus 10,000 MMU CELLS/CAPSULE PO SCH ×2 (09:00→21:00)
[2022-05-31] MEDS: nicotine 7mg patch - 24hr TD SCH ×2 (09:01→09:10)
--- NOTE | 2022-05-31 09:54 | NUR ---
Patient ate 100% of her breakfast and drank her coffee. Patient is washing up at sink. Large cancerous mass present on right cheek. Patient requesting a hair cap to wash her hair, ordered. Patient is medication compliant.
--- NOTE | 2022-05-31 13:33 | NUR ---
Patient is sitting in her room, keeping herself occupied. No incidences of kathy
--- NOTE | 2022-05-31 13:35 | NUR ---
There have been no incidences of yelling or out of control behaviors. Patient has been compliant with requests.
[2022-05-31] MEDS: acetaminophen 325mg tablet PO PRN (15:07)
[2022-05-31] MEDS: quetiapine fumarate ER 300mg tablet PO SCH (15:08)
--- NOTE | 2022-05-31 19:04 | NUR ---
Patient just finishing eating dinner. Patient has been calm this shift. Patient in line of sight of nursing station.
--- NOTE | 2022-05-31 19:26 | NUR ---
Patient walking with FWW to restroom. No complaints at this time.
[2022-05-31] MEDS: polyethylene glycol 3350 17gm powd pack PO SCH (20:59)
[2022-05-31] MEDS: fluvoxamine 25 MG tablet PO SCH (21:00)
[2022-05-31] MEDS: docusate sod 250mg capsule PO SCH (21:00)
[2022-05-31] MEDS: montelukast 10mg tablet PO SCH (21:02)
[2022-05-31] MEDS ORDERED: ziprasidone IM 20mg inj **IM only ONE (22:20)
[2022-05-31] MEDS ORDERED: ziprasidone IM 20mg inj **IM only IM ONE (22:20)
--- NOTE | 2022-05-31 23:10 | NUR ---
Note alisa in EDM - 05/31/22 at 2328 by TOMY Patient started yelling at staff and becoming beligerent, telling RN that I have to PROVE to patient that it is night time. Patient went back to her room, but continued to confront staff about the time of day. Patient received IM of Geodon 20 mg left deltoid. Patient took her medications in applesauce after dinner.
--- NOTE | 2022-05-31 23:28 | NUR ---
Patient is refusing to take her h.s. medications. Patient is stating that Ativan will make her heart stop. Informed patient that she does not receive Ativan anymore, that she gets Klonopin for anxiety. Patient unwilling to eat applesauce and medications.
--- NOTE | 2022-05-31 23:52 | NUR ---
Reviewed clinical data with Dr. Kellyfs, no new orders at this time as patient appears to be "winding down".
--- NOTE | 2022-06-01 02:24 | NUR ---
Patient is awake walking with her FWW. Patient has picked at her face and is bleeding. Patient denies picking at her face. Patient is demanding coffee and is raising her voice waking up other patient's.
[2022-06-01] MEDS: clonazePAM 0.5mg tablet PO PRN ×2 (02:33→21:19)
[2022-06-01] MEDS: acetaminophen w/codeine (30MG) #3 tablet PO PRN ×3 (02:51→21:39)
--- NOTE | 2022-06-01 03:14 | NUR ---
Patient is standing up in the hallway with her walker and appears as though she is starting to fall asleep, but is resistent to going to sleep. Patient has scratched a hole in her face.
[2022-06-01] MEDS ORDERED: haloperidol lactate 5mg/ml inj IM ONE (04:20)
[2022-06-01] MEDS ORDERED: diphenhydrAMINE 50 mg/ml inj IM ONE (04:20)
--- NOTE | 2022-06-01 04:41 | NUR ---
Patient is screaming at the top of her lungs. I want coffee, I want my divorce lawyer. It's 3:30 in the afternoon. I'm not going in my room. Patient just received Haldol 10 mg IM and Benadryl 50 mg.
--- NOTE | 2022-06-01 06:00 | NUR ---
Patient has been screaming and punching glass door and wall. Unable to verbally deescelate after multiple attempts. Patient then sat on the ground and began trying to kick staff who were attempting to help her up into bed. Patient lying in room screaming at the top of her lungs.
[2022-06-01] MEDS ORDERED: ketamine 50 mg/ml 10ml vial IM ONE (06:35)
[2022-06-01] MEDS: lactobacillus rhamnosus 10,000 MMU CELLS/CAPSULE PO SCH ×2 (08:19→19:19)
[2022-06-01] MEDS: sennosides 8.6mg tablet PO SCH ×2 (08:20→19:19)
[2022-06-01] MEDS: clonazePAM 0.5mg tablet PO SCH ×3 (08:20→16:33)
[2022-06-01] MEDS: lamoTRIgine 100mg tablet PO SCH ×2 (08:20→19:19)
[2022-06-01] MEDS: ferrous sulfate 325mg tablet PO SCH ×2 (08:20→19:19)
[2022-06-01] MEDS: ziprasidone 20mg capsule PO SCH ×2 (08:20→19:19)
[2022-06-01] MEDS: atorvastatin 10mg tablet PO SCH (08:20)
[2022-06-01] MEDS: ascorbic acid 500mg tablet PO SCH ×2 (08:21→19:23)
[2022-06-01] MEDS: multivitamins, therapeutics tablet PO SCH (08:21)
[2022-06-01] MEDS: nicotine 7mg patch - 24hr TD SCH (08:21)
[2022-06-01] MEDS: vortioxetine HBr tablet 5 MG TABLET PO SCH ×2 (08:21→19:20)
--- NOTE | 2022-06-01 08:30 | NUR ---
Pt. sitting on the side of bed eating breakfast
--- NOTE | 2022-06-01 10:30 | NUR ---
Pt. ambulating with walker, talking with normal tone, bandage on Lt. side of face, no distress noted
--- NOTE | 2022-06-01 11:18 | NUR ---
Spoke to window caser SUGAR, pt. has a Oncology appt. Sunday at 0800. [facility] has been sent documentation as well as request for an attendant.
--- NOTE | 2022-06-01 12:23 | NUR ---
Pt. sitting in recliner eating lunch, no distress.
--- NOTE | 2022-06-01 14:23 | NUR ---
Pt. wondering around the unit, using a walker, mumbling to herself. No s/sx of distress.
[2022-06-01] MEDS: quetiapine fumarate ER 300mg tablet PO SCH (16:33)
--- NOTE | 2022-06-01 17:24 | NUR ---
Pt. awake and standing near nurses station. No distress noted.
--- NOTE | 2022-06-01 19:55 | NUR ---
Patient took medications without any issues. RN changed dressing on left cheek. Patient resting comfortably in her chair
[2022-06-01] MEDS: docusate sod 250mg capsule PO SCH (21:17)
[2022-06-01] MEDS: montelukast 10mg tablet PO SCH (21:17)
[2022-06-01] MEDS: fluvoxamine 25 MG tablet PO SCH (21:18)
[2022-06-01] MEDS: polyethylene glycol 3350 17gm powd pack PO SCH (21:18)
--- NOTE | 2022-06-01 21:45 | NUR ---
Patient getting a bit more agitated, prn klonopin and tylenol/codeine given. Patient was c/o pain.
[2022-06-02] MEDS: acetaminophen 325mg tablet PO PRN (01:18)
--- NOTE | 2022-06-02 03:56 | NUR ---
Patient overall cooperative this shift and easily redirectable for the most part. Patient up in recliner at this time, bilateral LE elevated.
[2022-06-02] MEDS: acetaminophen w/codeine (30MG) #3 tablet PO PRN ×2 (06:09→14:03)
--- NOTE | 2022-06-02 07:10 | NUR ---
Received pt. up wandering the unit at the beginning of the shift, she requires redirection at intervals.
[2022-06-02] MEDS: ferrous sulfate 325mg tablet PO SCH ×2 (08:00→20:33)
[2022-06-02] MEDS: lactobacillus rhamnosus 10,000 MMU CELLS/CAPSULE PO SCH ×2 (08:00→20:00)
[2022-06-02] MEDS: ziprasidone 20mg capsule PO SCH ×2 (08:01→20:33)
[2022-06-02] MEDS: atorvastatin 10mg tablet PO SCH (08:01)
[2022-06-02] MEDS: lamoTRIgine 100mg tablet PO SCH ×2 (08:01→20:32)
[2022-06-02] MEDS: multivitamins, therapeutics tablet PO SCH (08:01)
[2022-06-02] MEDS: clonazePAM 0.5mg tablet PO SCH ×3 (08:01→16:16)
[2022-06-02] MEDS: ascorbic acid 500mg tablet PO SCH ×2 (08:01→20:32)
[2022-06-02] MEDS: vortioxetine HBr tablet 5 MG TABLET PO SCH ×2 (08:01→20:33)
[2022-06-02] MEDS: sennosides 8.6mg tablet PO SCH ×2 (08:02→20:32)
[2022-06-02] MEDS: nicotine 7mg patch - 24hr TD SCH (08:04)
--- NOTE | 2022-06-02 09:00 | NUR ---
Pt. pulled the dressing on her left cheeck off after being encouraged by staff to leave it alone. Dressing was replaced by this freelance copywriter and pt. tolerated procedure well. Pt's chronic left cheeck growth has a minimal amout of blood present, area was cleaned and ordered wound care treatment was completed. Will continue to monitor area closely. Addendum: 06/02/22 at 0945 by WILY Pt. frequently removes her soft neck brace, she requires encouragement and frequent redirection to leave it in place, will continue to monitor.
--- NOTE | 2022-06-02 10:54 | NUR ---
Pt. is up in the bathroom at this time changing her clothing, she is able to do this independently.
--- NOTE | 2022-06-02 11:23 | NUR ---
Wound care is at bedside at this time completing an assessment and dressing change.
--- NOTE | 2022-06-02 11:31 | NUR ---
Pt. has some ongoing edema and slight redness in her bilateral feet and lower extremities. This was endorsed to wound care and bilateral lower extremity skin care was provided and ordered daily (this consists of wiping with purple wipes and applying Skin Repair Cream). Staff to encourage pt. to elevate her legs, will endorse to Noc shift.
--- NOTE | 2022-06-02 12:44 | NUR ---
Pt. refused to sign the paperwork for her upcoming oncology appointment. This was endorsed to the hospital social services analyst, and per RAFAEL, a staff member from [facility] will be coming in to try and get pt. to sign the papwork. Will keep paperwork with pt's chart and endorse to Noc shift.
--- NOTE | 2022-06-02 13:06 | NUR ---
Pt. up to use the bathroom at this time. She requested that staff help her put her neck brace on and promptly removed it. With encouragement, pt. was able to place her neck brace back on independently.
--- NOTE | 2022-06-02 15:00 | NUR ---
Pt. is sitting in a chair at bedside at this time watching TV, heels floated.
[2022-06-02] MEDS: quetiapine fumarate ER 300mg tablet PO SCH (16:16)
--- NOTE | 2022-06-02 17:12 | NUR ---
Pt. is up in the bathroom at this time, she continues to ambulate with FWW.
--- NOTE | 2022-06-02 18:36 | NUR ---
Patient ambulatory to BR, steady gait with her walker. No distress observed. Continue to monitor.
--- NOTE | 2022-06-02 20:22 | NUR ---
Patient up and asking for new clothes again. Continue to monitor.
[2022-06-02] MEDS: montelukast 10mg tablet PO SCH (20:32)
[2022-06-02] MEDS: fluvoxamine 25 MG tablet PO SCH (20:32)
[2022-06-02] MEDS: docusate sod 250mg capsule PO SCH (20:32)
[2022-06-02] MEDS: polyethylene glycol 3350 17gm powd pack PO SCH (20:33)
--- NOTE | 2022-06-02 21:11 | NUR ---
Patient up and down and yelling for a shower. RN advises patient that there is not enough staff to take her to the shower. RN asks patient to please be quiet as people are sleeping. Patient insists that it is day when RN states it's night. Patient starts calling RN a "liar and a thief." Continue to monitor.
--- NOTE | 2022-06-02 23:55 | NUR ---
Patient appears to have fallen asleep in her recliner. Continue to monitor.
--- NOTE | 2022-06-03 01:02 | NUR ---
Patient looked uncomfortable with her head tilted quite a bit to the right. Marleny Braun and TANYA Edmonds attempted to make the patient comfortable. RN moved patient's head and placed a pillow on her right side. Patient's feet rests are not working. Patient is sound asleep and did not awaken during the adjustment. Continue to monitor.
--- NOTE | 2022-06-03 02:22 | NUR ---
Patient continues to sleep in recliner. No distress observed. Continue to monitor.
--- NOTE | 2022-06-03 03:26 | NUR ---
Patient sleeping in recliner. No distress observed. Continue to monitor.
--- NOTE | 2022-06-03 04:47 | NUR ---
Patient awake and walking around. No distress observed. Continue to monitor.
--- NOTE | 2022-06-03 05:05 | NUR ---
Patientwent into BR to get cleaned up. Clean gown, pants, pullup and supplies given. Patient's pull-up was dry. Patient slept from about midnight until 7. RN cleaned under patient's pannus, dried area and placed Nystatin powder to left area under pannus. Inguinal area is healed. Patient tolerated well. Continue to monitor.
[2022-06-03] MEDS: nystatin 15 GM powder TP PRN (05:48)
--- NOTE | 2022-06-03 06:39 | NUR ---
Patient out of her room wandering around the unit. She was showered last night and appears fairly clean. Bandage to face is c/d/i.
[2022-06-03] MEDS: nicotine 7mg patch - 24hr TD SCH (07:56)
[2022-06-03] MEDS: ferrous sulfate 325mg tablet PO SCH ×2 (07:57→20:38)
[2022-06-03] MEDS: multivitamins, therapeutics tablet PO SCH (07:57)
[2022-06-03] MEDS: atorvastatin 10mg tablet PO SCH (07:57)
[2022-06-03] MEDS: sennosides 8.6mg tablet PO SCH ×2 (07:57→20:38)
[2022-06-03] MEDS: lamoTRIgine 100mg tablet PO SCH ×2 (07:57→20:38)
[2022-06-03] MEDS: lactobacillus rhamnosus 10,000 MMU CELLS/CAPSULE PO SCH ×2 (07:57→20:37)
[2022-06-03] MEDS: ziprasidone 20mg capsule PO SCH ×2 (07:57→20:37)
[2022-06-03] MEDS: ascorbic acid 500mg tablet PO SCH ×2 (07:58→20:38)
[2022-06-03] MEDS: vortioxetine HBr tablet 5 MG TABLET PO SCH ×2 (07:58→20:38)
[2022-06-03] MEDS: clonazePAM 0.5mg tablet PO SCH ×3 (07:58→18:12)
--- NOTE | 2022-06-03 08:39 | NUR ---
Patient has finished eating her breakfast. She has started to wander the unit making complaints and demands.
--- NOTE | 2022-06-03 10:06 | NUR ---
Patient came to Nurse's station asking to watch TV. Tech is setting it up for her.
[2022-06-03] MEDS: acetaminophen w/codeine (30MG) #3 tablet PO PRN ×2 (10:32→20:37)
--- NOTE | 2022-06-03 13:29 | NUR ---
pt states her face is bleeding. Lesion to left side of face with oozing blood and dried crusted blood. Lesion cleansed with 0.9% ns , patted dry, xeroform and mepilex applied. pt now sleeping.
--- NOTE | 2022-06-03 13:41 | NUR ---
Patient has fallen asleep on her recliner. RR even and unlabored.
--- NOTE | 2022-06-03 15:05 | NUR ---
Patient up using the bathroom. She had requested a new brief.
--- NOTE | 2022-06-03 15:24 | NUR ---
Patient at the nurses station claiming that her coffee tastes like Arsenic. New cup provided.
[2022-06-03] MEDS: quetiapine fumarate ER 300mg tablet PO SCH (18:12)
--- NOTE | 2022-06-03 19:10 | NUR ---
Patient was ambulatory at shift change. Patient came to nurses station to request a shower. The patient was taken to the rest room by female staff. She was given a sponge bath and her hair washed. The patient is now sitting at bedside. Patient in no distress. She is cooperative with staff at this time.
[2022-06-03] MEDS: polyethylene glycol 3350 17gm powd pack PO SCH (20:36)
[2022-06-03] MEDS: montelukast 10mg tablet PO SCH (20:37)
[2022-06-03] MEDS: docusate sod 250mg capsule PO SCH (20:37)
[2022-06-03] MEDS: fluvoxamine 25 MG tablet PO SCH (20:38)
--- NOTE | 2022-06-03 20:52 | NUR ---
Patients dressing changed on her left face. Patient was compliant with nearly all night medications.
--- NOTE | 2022-06-03 23:17 | NUR ---
Patilent is awake. She is somewhat labile at times. Staff continues to redirect this patient.
[2022-06-04] MEDS ORDERED: diphenhydrAMINE 50 mg/ml inj IM ONE ×2 (00:40→23:40)
[2022-06-04] MEDS ORDERED: haloperidol lactate 5mg/ml inj IM ONE ×2 (00:40→23:40)
[2022-06-04] MEDS ORDERED: LORazepam 2 mg/ml vial IM ONE ×2 (00:40→23:40)
--- NOTE | 2022-06-04 01:34 | NUR ---
This patient started becoming agitated just after midnight. Her behavior escelated. Patient was delusional thinking it was 0700 in the morning and yelling the same. She screamed about coffee and struck out at the tech who was trying to calm her. The patient was swinging her walker and threatened staff. Security was called to bedside. Security was called for patient and staff safety reasons. Once security was at bedside Dr. Jacobson was consulted. She ordered Ativan 2 mg IM, Haldol 10 mg IM, and Benadryl 50 mg IM.
--- NOTE | 2022-06-04 01:56 | NUR ---
This patient is now sleeping quietly in a low Fowlers position. Regular resp, good color. Patient has picked at her left face Basal Cell Carcinoma. There was some bleding there that has subsided. For the moment this tech writer will let this patient rest. The wound will address bandaging the wound after the patient sleeps for a short term.
--- NOTE | 2022-06-04 02:30 | NUR ---
Patient is sleeping quietly in a low Fowlers position.
--- NOTE | 2022-06-04 03:45 | NUR ---
Patient continues to sleep quietly in a low fowlers position.
--- NOTE | 2022-06-04 04:35 | NUR ---
Patient continues to sleep quietly in a low Fowlers position on her bed.
--- NOTE | 2022-06-04 05:35 | NUR ---
Patient has awoken after a few hours of sleep. She brings her coffee cup to the nurses station. Patient is polite. She returns to her chair and awaits morning decaf coffee and crackers.
--- NOTE | 2022-06-04 06:06 | NUR ---
Patient was placed on her reclining chair. She complains of pain her feet which remains edematous at 2 plus pitting. Swelling assends up both legs to the knee level. The feet and lower legs have redness, they are not hot to the touch. This patient complains of pain to both legs.
[2022-06-04] MEDS: clonazePAM 0.5mg tablet PO PRN (06:28)
[2022-06-04] MEDS: acetaminophen w/codeine (30MG) #3 tablet PO PRN (06:28)
--- NOTE | 2022-06-04 06:34 | NUR ---
Patient expressed anxiety and pain. Klonopin and Tylenol #3 were given.
[2022-06-04] MEDS: nicotine 7mg patch - 24hr TD SCH (08:10)
[2022-06-04] MEDS: clonazePAM 0.5mg tablet PO SCH ×3 (08:11→16:34)
[2022-06-04] MEDS: ziprasidone 20mg capsule PO SCH ×2 (08:11→20:00)
[2022-06-04] MEDS: lactobacillus rhamnosus 10,000 MMU CELLS/CAPSULE PO SCH ×2 (08:11→20:00)
[2022-06-04] MEDS: multivitamins, therapeutics tablet PO SCH (08:11)
[2022-06-04] MEDS: ferrous sulfate 325mg tablet PO SCH ×2 (08:11→20:00)
[2022-06-04] MEDS: atorvastatin 10mg tablet PO SCH (08:11)
[2022-06-04] MEDS: lamoTRIgine 100mg tablet PO SCH ×2 (08:12→20:00)
[2022-06-04] MEDS: ascorbic acid 500mg tablet PO SCH ×2 (08:12→20:00)
[2022-06-04] MEDS: vortioxetine HBr tablet 5 MG TABLET PO SCH ×2 (08:12→20:00)
[2022-06-04] MEDS: sennosides 8.6mg tablet PO SCH ×2 (08:12→20:00)
--- NOTE | 2022-06-04 11:48 | NUR ---
This patient is sitting upright in her chair, she drinks decaf coffee and is anxiously awaiting the delivery of her lunch.
--- NOTE | 2022-06-04 12:18 | NUR ---
Patient is sitting up eating lunch. Patient does not complain while she eats.
--- NOTE | 2022-06-04 14:13 | NUR ---
This patient was given a sponge bath and had her hair washed by one of our female tech's. The patient has now fallen asleep in her reclininer..
--- NOTE | 2022-06-04 15:25 | NUR ---
Patient is sitting up in her chair. She is drinking coffee and eating crackers.
[2022-06-04] MEDS: quetiapine fumarate ER 300mg tablet PO SCH (16:34)
--- NOTE | 2022-06-04 16:43 | NUR ---
This patient was up to the bathroom to void. She then exits the bathroom and washes her hands in the sink.
--- NOTE | 2022-06-04 16:52 | NUR ---
Patient was compliant with afternoon medications. She still requires considerable redirection.
--- NOTE | 2022-06-04 19:46 | NUR ---
The patient has been roaming around the unit. She ate her dinner. She is attending to her ADLs.
[2022-06-04] MEDS: fluvoxamine 25 MG tablet PO SCH (20:49)
[2022-06-04] MEDS: polyethylene glycol 3350 17gm powd pack PO SCH (20:49)
[2022-06-04] MEDS: docusate sod 250mg capsule PO SCH (20:49)
[2022-06-04] MEDS: montelukast 10mg tablet PO SCH (20:50)
--- NOTE | 2022-06-04 21:22 | NUR ---
The patient refused all of her HS medications insisting that it was the morning time. She refuses to accept that it is night time
--- NOTE | 2022-06-04 22:15 | NUR ---
The patient is sitting on her chair quietly
--- NOTE | 2022-06-04 23:36 | NUR ---
The patient is agitated and screaming for coffee. She is waking up peers. She attempted to hit the tech with her walker. She pulled the curtain down in front of her room.
[2022-06-04] MEDS ORDERED: diphenhydrAMINE 50 mg/ml inj ONE (23:42)
[2022-06-04] MEDS ORDERED: haloperidol lactate 5mg/ml inj ONE (23:42)
--- NOTE | 2022-06-05 00:13 | NUR ---
The patient eloped from the unit with staff following here. Security made aware.
--- NOTE | 2022-06-05 00:23 | NUR ---
Patient brought back to the unit by her staff and 3 security staff. She attempted to kick at staff and she is continuing to scream that she wants coffee.
[2022-06-05] MEDS ORDERED: ziprasidone IM 20mg inj **IM only IM ONE (00:40)
--- NOTE | 2022-06-05 01:02 | NUR ---
Nursing Forklift Technician and project manager process development on the unit to discuss patient
--- NOTE | 2022-06-05 02:57 | NUR ---
The patient appears to be sleeping
--- NOTE | 2022-06-05 03:29 | NUR ---
The patient up to use the bathroom
--- NOTE | 2022-06-05 03:49 | NUR ---
The patient was assisted up to use the bathroom and put on clean clothes. Clean dressing applied to her face.
--- NOTE | 2022-06-05 04:12 | NUR ---
The patient is yelling and other patients are yelling back at her to "shut up"
--- NOTE | 2022-06-05 04:48 | NUR ---
The patient is awake and periodically calling out
--- NOTE | 2022-06-05 05:20 | NUR ---
The patient continues to yell but is less agitated
--- NOTE | 2022-06-05 05:48 | NUR ---
The patient screaming about wanting coffee and banging her walker against the counter. She threw her metal coffee cup at staff hitting them. Male approached her and demanded "shut the fuck up!" but he was redirected.
[2022-06-05] MEDS ORDERED: ziprasidone IM 20mg inj **IM only ONE (06:15)
--- NOTE | 2022-06-05 07:00 | NUR ---
Beginning of shift security was standing by as patient had been assaultive to staff. Pt was yelling "I want f...ing coffee!" Pt had thrown a coffe cup at [facility]. [facility] nurse was waiting for provider Ching Jacobson to come and evaulate patient for intervention. Order was finally received for IM Geodon 20mg from Dr. Morales, which was administered at 0620 without issue. Received in report that pt had crackles in lower lobes of lungs. Pt continues to have LE edema. Dr. Morales ordered a chest x-ray and echocardigram. Pt continued to be obstinate, yelling at staff. Will continue to monitor.
--- NOTE | 2022-06-05 07:20 | NUR ---
Pt put herself in bed and is resting comfortably, rr even and unlabored.
[2022-06-05] MEDS: lactobacillus rhamnosus 10,000 MMU CELLS/CAPSULE PO SCH ×2 (08:01→19:53)
[2022-06-05] MEDS: vortioxetine HBr tablet 5 MG TABLET PO SCH ×2 (08:01→19:52)
[2022-06-05] MEDS: ziprasidone 20mg capsule PO SCH ×2 (08:01→19:52)
[2022-06-05] MEDS: multivitamins, therapeutics tablet PO SCH (08:02)
[2022-06-05] MEDS: sennosides 8.6mg tablet PO SCH ×2 (08:02→19:55)
[2022-06-05] MEDS: atorvastatin 10mg tablet PO SCH (08:02)
[2022-06-05] MEDS: nicotine 7mg patch - 24hr TD SCH (08:02)
[2022-06-05] MEDS: ascorbic acid 500mg tablet PO SCH ×2 (08:02→20:00)
[2022-06-05] MEDS: ferrous sulfate 325mg tablet PO SCH ×2 (08:02→19:53)
[2022-06-05] MEDS: clonazePAM 0.5mg tablet PO SCH ×3 (08:02→17:59)
[2022-06-05] MEDS: lamoTRIgine 100mg tablet PO SCH ×2 (08:02→19:52)
--- NOTE | 2022-06-05 08:10 | NUR ---
Pt up eating her breakfast. Pt was compliant with care and medication.
--- NOTE | 2022-06-05 08:40 | NUR ---
Pt in bathroom washing herself, given hygiene materials. Pt is independent with ADL's. Pt given clean scrubs.
--- NOTE | 2022-06-05 11:00 | NUR ---
Pt ambulating unit with FWW, no behaviors or outbursts.
--- NOTE | 2022-06-05 12:10 | NUR ---
Wound care completed and hair braided. Pt now sleeping in recliner, no distress noted. Pt in direct LOS of staff.
--- NOTE | 2022-06-05 12:12 | NUR ---
Noted erythema around pt's anterior neck. Pt c/o of itching. Pt wears her headbands around her neck, causing moisture. Pt was encouraged to take bands off, which she did for a short time. Bobtail Driver cleansed neck and applied Nystatin powder to area. Pt reported some relief, however placed hairbands back around neck.
--- NOTE | 2022-06-05 12:54 | NUR ---
Pt continues to sleep restfully in her recliner. Lockstitch Lining Maker placed pillow under pt's head.
--- NOTE | 2022-06-05 12:56 | NUR ---
Will hold patient's lunch until she wakes. Pt awake from 2300 last night to 1130 this morning. Pt took a 15 min nap early this shift after her IM Mabel.
--- NOTE | 2022-06-05 13:30 | NUR ---
Pt woke around 1315 and asked about "food." Pt given lunch tray, eating without issue.
--- NOTE | 2022-06-05 15:39 | NUR ---
Pt awake in her room standing by her bed. Pt in no distress.
--- NOTE | 2022-06-05 17:30 | NUR ---
Pt sitting in her recliner with legs elevated. It has been difficult keeping pt down to keep her legs elevated. Pt's EF was 60-65, Dr. Morales notified, no additional orders. Pt's headbands are back around her neck. Bands are not tight nor restricting circulation.
[2022-06-05] MEDS: quetiapine fumarate ER 300mg tablet PO SCH (17:59)
[2022-06-05] MEDS: fluvoxamine 25 MG tablet PO SCH (19:57)
[2022-06-05] MEDS: docusate sod 250mg capsule PO SCH (19:57)
[2022-06-05] MEDS: montelukast 10mg tablet PO SCH (19:58)
[2022-06-05] MEDS ORDERED: LORazepam 2 mg/ml vial IM ONE (20:00)
[2022-06-05] MEDS ORDERED: haloperidol lactate 5mg/ml inj IM ONE (20:00)
[2022-06-05] MEDS: polyethylene glycol 3350 17gm powd pack PO SCH (21:00)
[2022-06-05] MEDS ORDERED: ketamine 50 mg/ml 10ml vial IM STA (22:47)
--- NOTE | 2022-06-06 00:22 | NUR ---
Pt has spent almost the entire time this shift yelling has made 5x attempts to elope. x2 has made it off the unit into the hallway. Is at this time sitting on the floor MD is coming to administer ketamine.
--- NOTE | 2022-06-06 01:04 | NUR ---
Dr Garcia administered Ketamine pt quiet in bed.
--- NOTE | 2022-06-06 01:31 | NUR ---
Pt O2 sats dropping to 89 on room air. Put on 2L O2 via NC maintaining sats at 92%. HR 82. continuos pulse ox monitoring.
--- NOTE | 2022-06-06 04:24 | NUR ---
Pt sleeping. Continues on 2L O2 via NC. Sats 94% HR 82
--- NOTE | 2022-06-06 05:37 | NUR ---
Pt continues to sleep. O2 sats 94% HR 82.
--- NOTE | 2022-06-06 06:30 | NUR ---
Received report from TANYA Fay. Pt was administered Ketamine IM at 0100. Pt was resting comfortably in mid patrick's position. Pt was on 2LNC with saturation at 93%, HR 83. Pt's rr even and unlabored. Will continue to monitor.
--- NOTE | 2022-06-06 07:05 | NUR ---
Pt woke around 0700, attempting to get out of bed. Pt mumbles she needs to use the bathroom. Pt was assisted to bathroom, where she was incontinent of urine. Pt was changed into scrubs and new depends. Pt presents sedated, able to answer questions. Pt has a consultation with [facility] at 0830. Pt's wound was cleansed and redressed. Pt is compliant with process.
[2022-06-06] MEDS: ascorbic acid 500mg tablet PO SCH ×2 (08:00→20:12)
--- NOTE | 2022-06-06 08:00 | NUR ---
Pt is administered morning medications without issue. Selina Monroy RN with [facility] is at bedside. She will be accompany pt to appointment. Pt is sedated, but able to transfer self with assistance.
[2022-06-06] MEDS: sennosides 8.6mg tablet PO SCH ×2 (08:04→20:12)
[2022-06-06] MEDS: atorvastatin 10mg tablet PO SCH (08:04)
[2022-06-06] MEDS: ferrous sulfate 325mg tablet PO SCH ×2 (08:04→20:13)
[2022-06-06] MEDS: multivitamins, therapeutics tablet PO SCH (08:04)
[2022-06-06] MEDS: lamoTRIgine 100mg tablet PO SCH ×2 (08:04→20:13)
[2022-06-06] MEDS: ziprasidone 20mg capsule PO SCH ×2 (08:04→20:12)
[2022-06-06] MEDS: lactobacillus rhamnosus 10,000 MMU CELLS/CAPSULE PO SCH ×2 (08:04→20:12)
[2022-06-06] MEDS: vortioxetine HBr tablet 5 MG TABLET PO SCH ×2 (08:04→20:12)
[2022-06-06] MEDS: clonazePAM 0.5mg tablet PO SCH ×3 (08:04→17:56)
--- NOTE | 2022-06-06 08:15 | NUR ---
Pt off unit. Left with Fabio Monroy to appointment. Transported via [employer].
--- NOTE | 2022-06-06 11:00 | NUR ---
Pt returned to unit at 1040. Pt calm/cooperative. Pt stating "I'm hungry." Pt only had a small portion of her breakfast before she left. Per Selina Monroy RN with [facility]. Pt was cooperative with consultation, no behaviors reported. Pt was assisted back to her recliner where she ate 100% of her breakfast.
--- NOTE | 2022-06-06 11:35 | NUR ---
Assisted patient to the bathroom as she stil presents slightly sedated. Pt's briefs were dry. Pt voided, urine clear, straw color, some odor.
[2022-06-06] MEDS: nicotine 7mg patch - 24hr TD SCH (11:54)
--- NOTE | 2022-06-06 13:30 | NUR ---
Pt has been pacing the unit in wheelchair. Pt continues to be calm/cooperative.
--- NOTE | 2022-06-06 14:15 | NUR ---
Pt sleeping comfortably in recliner, elevated legs without waking patient.
--- NOTE | 2022-06-06 14:50 | NUR ---
Agree w/ [facility] SECURITY OFFICERS AND GUARDS charting from 06/02/22
--- NOTE | 2022-06-06 15:20 | NUR ---
Pt woke and is transferring to wheel chair.
[2022-06-06] MEDS: quetiapine fumarate ER 300mg tablet PO SCH (16:22)
--- NOTE | 2022-06-06 16:45 | NUR ---
Assisted patient to bathroom. Urine, clear, straw color, mild odor. Pt declines to drink water, even when encouraged. Pt is back to her recliner, pt asking for coffee. Pt is offered water, pt again declines.
--- NOTE | 2022-06-06 17:30 | NUR ---
Pt sitting in wheelchair next to bed waiting for dinner. Pt stating "I am hungry." "I haven't eaten in a year." Pt had received an afternoon snack of crackers and cheese.
--- NOTE | 2022-06-06 19:51 | NUR ---
Patient headed for the exit, voice loud saying "I am going home today or tomorrow!" Pt was redirected back to her bed. Pt pulled off dressing from left cheek, wound redressed. Addendum: 06/06/22 at 1958 by LYNDA When asked if her cheek was hurting pt said "yes."
[2022-06-06] MEDS: docusate sod 250mg capsule PO SCH (20:12)
[2022-06-06] MEDS: polyethylene glycol 3350 17gm powd pack PO SCH (20:12)
[2022-06-06] MEDS: montelukast 10mg tablet PO SCH (20:13)
[2022-06-06] MEDS: acetaminophen w/codeine (30MG) #3 tablet PO PRN (20:13)
[2022-06-06] MEDS: fluvoxamine 25 MG tablet PO SCH (20:23)
[2022-06-06] MEDS: clonazePAM 0.5mg tablet PO PRN (21:55)
--- NOTE | 2022-06-06 21:55 | NUR ---
PRN Klonopin 1 mg was administered with yogurt. Will continue to monitor.
--- NOTE | 2022-06-06 22:04 | NUR ---
Patient has intermittent episodes of increased agitation, to being restless, to dozing in her recliner. Pt demanding coffee, unable to reason with patient as she thinks it is "Nine o'clock in the morning!!!!" "I want my coffee!!!!" PRN Ativan 1mg was administered with yogurt. Pt continually has been yelling a night keeping other patients awake. Pt can be unreasonable at times aggressive. Pt has shown no aggression as of this writing. Will continue to monitor.
--- NOTE | 2022-06-06 22:08 | NUR ---
Pt is in her recliner dozing. Pt presents sedated, however she fights the sleep that comes with it.
--- NOTE | 2022-06-06 22:17 | NUR ---
Patient again wakes up screaming "I want some coffee!!!" Repeats, then dozes off. Addendum: 06/06/22 at 2217 by LYNDA Building Analyst/Supervisor has attempted multiple times to elevate pt's feet without success. Pt has dependent edema in LE's. Building Analyst/Supervisor spoke with Laurita during day shift confirming this. Pt is difficult to redirect.
[2022-06-06] MEDS ORDERED: cyanocobalamin 1,000 mcg/ml inj IM ONE ×2 (22:50→23:00)
--- NOTE | 2022-06-06 22:55 | NUR ---
Pt continues to be restless and agitated screaming for "coffee!!" Pt stomping her walker to ground "I want my coffee." Pt is distrubing other patients. Spoke with Dr. Elena Garcia, instead of another IM of anti psychotic medication or Ketamine, he wanted to try a placebo. Pt's a history of not liking IM's and seems to fall asleep immedicaly after receving one. Received order for 500 mcg Cyanocobalamin. Verified and clarified with Dr. Garcia pt's kidney function was in order. Addendum: 06/06/22 at 2325 by LYNDA Patient pulled down privacy curtains from exit entrance. Pt had to be redirected back to her room.
--- NOTE | 2022-06-06 23:10 | NUR ---
Administered IM without issue. Will continue to monitor.
--- NOTE | 2022-06-06 23:28 | NUR ---
Pt having intermittent outbursts, but appears to be calming down. Pt is sitting in wheelchair wandering around unit.
--- NOTE | 2022-06-06 23:40 | NUR ---
Pt sitting in wheelchair in front of nurses station. Pt appears to be sleeping, without distress. Pt had WC during day shift r/t sedation.
--- NOTE | 2022-06-07 00:34 | NUR ---
Patient continues to sleep in her WC, rr even and unlabored.
--- NOTE | 2022-06-07 02:11 | NUR ---
Pt continues to sleep restfully. Pt remains in her chair. Glass Maker unable to elevated pt's feet as this usually wakes her up. Pt has had approximately 8-10 hours of sleep the last couple of days. Pt shows no distress, rr even and unlabored.
--- NOTE | 2022-06-07 02:30 | NUR ---
Patient woke up and quietly moving around the unit in a WC. Pt is only using WC because contract technical writer wasn't able to put it up in time. Pt usually uses her FWW to ambulate the unit.
--- NOTE | 2022-06-07 03:30 | NUR ---
Pt took herself to the bathroom. Voided, urine clear, straw color.
--- NOTE | 2022-06-07 04:00 | NUR ---
Pt has intermittently asked about having coffee. Food Safety Officer has been able to reasoable redirect patient. Decaf coffee is brewed and given to patient.
[2022-06-07] MEDS: clonazePAM 0.5mg tablet PO PRN (05:38)
--- NOTE | 2022-06-07 05:50 | NUR ---
Pt continued to yell "I want coffee!" Even after having two cups." Pt yells "I want to go home!" PRN Klonopin 0.5 mg was administered.
--- NOTE | 2022-06-07 07:05 | NUR ---
Patient continues to scream for food, coffee, new gown. RN gave patient coffee but advised patient she won't get a new gown until after breakfast. Patient eats and spills all over herself and changes several times per day. Patient is keeping other patients awake. One of the teenagers yelled at her to be quiet. Continue to monitor.
--- NOTE | 2022-06-07 08:10 | NUR ---
Patient eating breakfast. No distress because she is eating. Continue to monitor.
[2022-06-07] MEDS: atorvastatin 10mg tablet PO SCH (09:14)
[2022-06-07] MEDS: sennosides 8.6mg tablet PO SCH ×2 (09:14→20:15)
[2022-06-07] MEDS: multivitamins, therapeutics tablet PO SCH (09:15)
[2022-06-07] MEDS: ziprasidone 20mg capsule PO SCH ×2 (09:16→20:15)
[2022-06-07] MEDS: lamoTRIgine 100mg tablet PO SCH ×2 (09:16→20:16)
[2022-06-07] MEDS: clonazePAM 0.5mg tablet PO SCH ×3 (09:18→16:55)
[2022-06-07] MEDS: ferrous sulfate 325mg tablet PO SCH ×2 (09:18→20:14)
[2022-06-07] MEDS: ascorbic acid 500mg tablet PO SCH ×2 (09:18→20:15)
[2022-06-07] MEDS: lactobacillus rhamnosus 10,000 MMU CELLS/CAPSULE PO SCH ×2 (09:18→20:15)
[2022-06-07] MEDS: vortioxetine HBr tablet 5 MG TABLET PO SCH ×2 (09:18→20:20)
[2022-06-07] MEDS: nicotine 7mg patch - 24hr TD SCH (09:19)
--- NOTE | 2022-06-07 10:28 | NUR ---
Patient sitting in her chair and tech Nichole washing her hair. Patient with her eyes closed and appears to be loving the head massage. Continue to monitor.
--- NOTE | 2022-06-07 11:21 | NUR ---
pt was demanding to wash her hair. this tech shampooed and styled pt's hair at bedside and made up bed with clean sheets and blankets.
--- NOTE | 2022-06-07 12:10 | NUR ---
Patient eating lunch. No distress observed. Continue to monitor.
--- NOTE | 2022-06-07 14:05 | NUR ---
Patient just awoke from about at 90 minute nap. Patient hardly slept last night. No distress observed. Continue to monitor.
--- NOTE | 2022-06-07 16:11 | NUR ---
Patient walking around with her walker. No distress observed. Continue to monitor.
[2022-06-07] MEDS: quetiapine fumarate ER 300mg tablet PO SCH (16:55)
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
[2022-06-07] MEDS: polyethylene glycol 3350 17gm powd pack PO SCH (20:13)
[2022-06-07] MEDS: montelukast 10mg tablet PO SCH (20:15)
[2022-06-07] MEDS: docusate sod 250mg capsule PO SCH (20:15)
--- NOTE | 2022-06-07 20:34 | NUR ---
Patient was recieved at 0630 from [facility]. Patient finished dinner and then went to bathroom to change clothes. Patient started arguing with nurse about the time stating it was seven a.m and so she can have coffee. Patient then started yelling for coffee. Patient was redirected and returned to chair were she slept for 45 minutes. Patient got up again asking for coffee and then attempted to leave unit. Patient was again redirected towards bed. Nurse had to try mutiple times to get patient to take night medications.
[2022-06-07] MEDS: fluvoxamine 25 MG tablet PO SCH (21:00)
--- NOTE | 2022-06-07 22:30 | NUR ---
Patient finally sleeping. Patient continues to periodiclly get up pacing near room and then return to chair
--- NOTE | 2022-06-08 00:30 | NUR ---
Patient was observed sleeping until getting up asking for a sandwich. Patient had been given mutiple sandwiches and still yells for more.
--- NOTE | 2022-06-08 02:30 | NUR ---
Patient is being argumentative and demanding about food. Patient keeps yelling its early childhood education instructor and so she can have coffee. Patient also tried to walk off of unit and push past aid due to not getting coffe. Patient was eventually redirected by nurse to sit where she got coffee.
--- NOTE | 2022-06-08 04:50 | NUR ---
Patient requested dressing change to wound on left side of face. New xeroform was placed as well new bandage. Patient transfered herself to the bathroom for fifth time tonight.
--- NOTE | 2022-06-08 06:38 | NUR ---
Patient up and asking for a shower. RN gave patient warm wipes but is unable to take patient to the shower due to low staff and 8 patients. Patient is calm and went back to sit in her recliner. No distress observed at this time. Continue to monitor.
--- NOTE | 2022-06-08 08:08 | NUR ---
Patient eating breakfast. Patient has been calm and cooperative today. No distress observed. continue to monitor.
[2022-06-08] MEDS: ziprasidone 20mg capsule PO SCH ×2 (08:30→21:00)
[2022-06-08] MEDS: ferrous sulfate 325mg tablet PO SCH ×2 (08:31→21:00)
[2022-06-08] MEDS: lactobacillus rhamnosus 10,000 MMU CELLS/CAPSULE PO SCH ×2 (08:31→21:00)
[2022-06-08] MEDS: ascorbic acid 500mg tablet PO SCH ×2 (08:31→21:00)
[2022-06-08] MEDS: lamoTRIgine 100mg tablet PO SCH ×2 (08:31→21:00)
[2022-06-08] MEDS: nicotine 7mg patch - 24hr TD SCH (08:31)
[2022-06-08] MEDS: sennosides 8.6mg tablet PO SCH ×2 (08:31→21:00)
[2022-06-08] MEDS: clonazePAM 0.5mg tablet PO SCH ×3 (08:31→17:58)
[2022-06-08] MEDS: atorvastatin 10mg tablet PO SCH (08:31)
[2022-06-08] MEDS: vortioxetine HBr tablet 5 MG TABLET PO SCH ×2 (08:31→21:00)
[2022-06-08] MEDS: multivitamins, therapeutics tablet PO SCH (08:31)
--- NOTE | 2022-06-08 10:32 | NUR ---
Patient cleaning up in the BR. No distress observed. Continue to monitor.
--- NOTE | 2022-06-08 12:10 | NUR ---
Patient eating lunch. No distress observed. Patient has been smiling and joking today. Continue to monitor.
--- NOTE | 2022-06-08 13:05 | NUR ---
Patient sleeping in her recliner. No distress observed. Continue to monitor.
--- NOTE | 2022-06-08 14:50 | NUR ---
Patient awake and calm. No distress observed. Continue to monitor.
--- NOTE | 2022-06-08 16:17 | NUR ---
Patient calm and walking around. No distress observed. Continue to monitor.
--- NOTE | 2022-06-08 17:55 | NUR ---
Patient eating dinner. No distress observed. Continue to monitor.
[2022-06-08] MEDS: quetiapine fumarate ER 300mg tablet PO SCH (17:59)
--- NOTE | 2022-06-08 18:30 | NUR ---
Patient up walking around with walker. Will continue to monitor.
[2022-06-08] MEDS: clonazePAM 0.5mg tablet PO PRN (21:00)
[2022-06-08] MEDS: acetaminophen w/codeine (30MG) #3 tablet PO PRN (21:00)
[2022-06-08] MEDS: fluvoxamine 25 MG tablet PO SCH (21:00)
[2022-06-08] MEDS: montelukast 10mg tablet PO SCH (21:00)
[2022-06-08] MEDS: polyethylene glycol 3350 17gm powd pack PO SCH (21:00)
[2022-06-08] MEDS: docusate sod 250mg capsule PO SCH (21:00)
--- NOTE | 2022-06-08 21:00 | NUR ---
Patient agreed to take HS meds at this time. Had previously refused and reported, "I already had my HS meds." Reoriented patient that she had not had any meds this shift yet. Patient suspicious and believes medical staff are lying to her. Reassure her that she can trust her and that we care about her. Will continue to monitor.
[2022-06-08] MEDS: nystatin 15 GM powder TP PRN (23:28)
--- NOTE | 2022-06-08 23:35 | NUR ---
Patient awake, asking for food. Getting her a sandwich. Appears tired since HS meds. Offered to help her get to sleep. Patient declined. No agitation or pain noted after Klonopin and Tylenol #3. Patient pleasant at this time.
--- NOTE | 2022-06-09 02:15 | NUR ---
Patient sleeping, Will continue to monitor.
--- NOTE | 2022-06-09 04:17 | NUR ---
Patient sleeping comfortably in recliner. Has slept straight through the last few hours. RR even/nonlabored. No s/sx of distress noted. Will continue to monitor.
--- NOTE | 2022-06-09 05:38 | NUR ---
Patient awake and roaming unit. Used bathroom and has her morning coffee in hand. Patient has had a mostly calm/cooperative shift. No needs noted. Will continue to monitor.
--- NOTE | 2022-06-09 06:55 | NUR ---
Patient up and keeps asking for a shower. RN's do not have a tech at this time until about 0900. Patient is persistent. So RN gives in and gives patient clean clothes, pullup, towels and toiletries for shower. Continue to monitor.
--- NOTE | 2022-06-09 08:25 | NUR ---
Patient eating breakfast. No distress observed. Continue to monitor.
[2022-06-09] MEDS: lactobacillus rhamnosus 10,000 MMU CELLS/CAPSULE PO SCH ×3 (08:54→20:43)
[2022-06-09] MEDS: ferrous sulfate 325mg tablet PO SCH ×3 (08:54→20:55)
[2022-06-09] MEDS: atorvastatin 10mg tablet PO SCH (08:54)
[2022-06-09] MEDS: multivitamins, therapeutics tablet PO SCH (08:54)
[2022-06-09] MEDS: sennosides 8.6mg tablet PO SCH ×3 (08:54→20:55)
[2022-06-09] MEDS: ziprasidone 20mg capsule PO SCH ×3 (08:54→20:55)
[2022-06-09] MEDS: ascorbic acid 500mg tablet PO SCH ×3 (08:55→20:55)
[2022-06-09] MEDS: vortioxetine HBr tablet 5 MG TABLET PO SCH ×3 (08:55→20:55)
[2022-06-09] MEDS: clonazePAM 0.5mg tablet PO SCH ×3 (08:55→16:54)
[2022-06-09] MEDS: lamoTRIgine 100mg tablet PO SCH ×3 (08:55→20:55)
[2022-06-09] MEDS: nicotine 7mg patch - 24hr TD SCH (08:56)
--- NOTE | 2022-06-09 09:14 | NUR ---
Late entry: Agree with ENGINE BOSS WOC charting 06/08/22.
--- NOTE | 2022-06-09 10:21 | NUR ---
Patient walking around the unit with her coffee. No distress observed. Continue to monitor.
--- NOTE | 2022-06-09 11:19 | NUR ---
Patient pulled off the bandage to her left cheek in front of nurse's station and the wound starts bleeding. Tech placed gauze and placed over wound and placed pressure until the bleeding stopped. RN cleaned area and placed Xeroform and and a bandage over wound. Patient in no distress. Continue to monitor.
--- NOTE | 2022-06-09 12:06 | NUR ---
Patient eating breakfast. No distress observed. Continue to monitor.
--- NOTE | 2022-06-09 14:17 | NUR ---
Patient walking around the unit. Patient is very concerned with her hygiene daily. Patient goes into the BR and washes her hair in the sink and changes her gown. Patient given a pull up. No distress observed. Continue to monitor.
--- NOTE | 2022-06-09 16:10 | NUR ---
Patient walking around the unit. Patient is very needy. No distress observed. Continue to monitor.
[2022-06-09] MEDS: quetiapine fumarate ER 300mg tablet PO SCH (16:54)
[2022-06-09] MEDS: acetaminophen w/codeine (30MG) #3 tablet PO PRN (16:55)
--- NOTE | 2022-06-09 18:22 | NUR ---
Patient eating dinner. No distress observed. Continue to monitor.
[2022-06-09] MEDS: docusate sod 250mg capsule PO SCH ×2 (20:44→21:00)
[2022-06-09] MEDS: montelukast 10mg tablet PO SCH ×2 (20:44→21:00)
[2022-06-09] MEDS: fluvoxamine 25 MG tablet PO SCH ×2 (20:44→21:00)
[2022-06-09] MEDS: polyethylene glycol 3350 17gm powd pack PO SCH (20:44)
--- NOTE | 2022-06-09 21:05 | NUR ---
RN attempted to give patient her meds. Patient states "It is 8:01 in the morning!". Patient repeats this over and over. Patient does not believe it is evening and refusing meds. RN made many attempts to convince patient, but to no avail. Continue to monitor.
[2022-06-09] MEDS: clonazePAM 0.5mg tablet PO PRN (22:43)
--- NOTE | 2022-06-09 22:50 | NUR ---
Patient asked for Tylenol for upperback/neck pain. Patient agreed to take her PRN Clonazepam. And is still refusing her "nighttime meds". Continue to monitor.
--- NOTE | 2022-06-09 23:58 | NUR ---
Patient crawled into bed and has been asleep for almost 30 minutes. Light is on. Continue to monitor.
[2022-06-10] MEDS: nystatin 15 GM powder TP PRN (00:11)
--- NOTE | 2022-06-10 00:15 | NUR ---
Patient is up and walking around. No distress observed. Continue to monitor.
--- NOTE | 2022-06-10 00:43 | NUR ---
Patient crawled back in bed and is sleeping. No distress observed. Continue to monitor.
--- NOTE | 2022-06-10 02:03 | NUR ---
Patient sleeping. No distress observed. Continue to monitor.
--- NOTE | 2022-06-10 03:14 | NUR ---
Patient is up and to the BR and given a clean pull up. No distress observed. Continue to monitor.
--- NOTE | 2022-06-10 04:20 | NUR ---
Patient was only up for a short amount of time and crawled back into bed. Patient is sleeping. No distress observed. Continue to monitor.
--- NOTE | 2022-06-10 05:24 | NUR ---
Patient sleeping. No distress observed. Continue to monitor.
--- NOTE | 2022-06-10 06:48 | NUR ---
Received Pt awake and drinking water and asking for food. Pt returned to bed area and is resting.
[2022-06-10] MEDS: nicotine 7mg patch - 24hr TD SCH (08:00)
[2022-06-10] MEDS: vortioxetine HBr tablet 5 MG TABLET PO SCH ×2 (08:15→21:02)
[2022-06-10] MEDS: sennosides 8.6mg tablet PO SCH ×2 (08:15→21:02)
[2022-06-10] MEDS: atorvastatin 10mg tablet PO SCH (08:15)
[2022-06-10] MEDS: ziprasidone 20mg capsule PO SCH ×2 (08:16→21:02)
[2022-06-10] MEDS: clonazePAM 0.5mg tablet PO SCH ×3 (08:17→16:46)
[2022-06-10] MEDS: lamoTRIgine 100mg tablet PO SCH ×2 (08:17→21:02)
[2022-06-10] MEDS: lactobacillus rhamnosus 10,000 MMU CELLS/CAPSULE PO SCH ×2 (08:18→21:02)
[2022-06-10] MEDS: multivitamins, therapeutics tablet PO SCH (08:18)
[2022-06-10] MEDS: ferrous sulfate 325mg tablet PO SCH ×2 (08:18→21:03)
[2022-06-10] MEDS: ascorbic acid 500mg tablet PO SCH ×2 (08:38→21:03)
--- NOTE | 2022-06-10 09:03 | NUR ---
Pt awake and in cooperative mood. Pt ate breakfast and took AM meds w/o issue.
--- NOTE | 2022-06-10 11:12 | NUR ---
Pt up to bathroom to clean up and change dirty robe. Pt requested coffee and was pleased when given to her (krista).
--- NOTE | 2022-06-10 13:01 | NUR ---
Pt ate lunch well. Pt continues to ask for snacks after eating and focusing on food. Pt up to bathroom to change gown again and braided her own hair.
--- NOTE | 2022-06-10 14:46 | NUR ---
Pt walking about her bed area and up to nurses station. Pt given another cup of decaf coffee. Pt able to laugh at times today and was also tearful about not wanting to be here anymore. Pt took meds w/o issue throughout day.
[2022-06-10] MEDS: quetiapine fumarate ER 300mg tablet PO SCH (16:46)
--- NOTE | 2022-06-10 17:25 | NUR ---
Dressing on left side off face changed. Pt crying out "I don't want to be here anymore". Attempts made to comfort her.
--- NOTE | 2022-06-10 18:30 | NUR ---
Patient sitting up in recliner. No complaints. Appears to be pleasant. Received report from [place] human resource ssd that she had a good day and agitation has been increasing the passed 2 hrs. Will continue to monitor.
--- NOTE | 2022-06-10 21:00 | NUR ---
Patient was agreeable with HS meds. Pleasant and cooperative today per dayshift and is getting agitated and raising voice this evening. Will continue to monitor.
[2022-06-10] MEDS: docusate sod 250mg capsule PO SCH (21:01)
[2022-06-10] MEDS: acetaminophen w/codeine (30MG) #3 tablet PO PRN (21:02)
[2022-06-10] MEDS: fluvoxamine 25 MG tablet PO SCH (21:02)
[2022-06-10] MEDS: montelukast 10mg tablet PO SCH (21:02)
[2022-06-10] MEDS: polyethylene glycol 3350 17gm powd pack PO SCH (21:03)
[2022-06-10] MEDS: clonazePAM 0.5mg tablet PO PRN (21:03)
--- NOTE | 2022-06-10 23:33 | NUR ---
Patient appears to be sleeping with eyes closed in bed. Lights turned off. RR even/nonlabored. No s/sx of distress noted. Will continue to monitor.
--- NOTE | 2022-06-11 02:00 | NUR ---
Patient asleep on left side. Appears to be very comfortable. No needs noted. Will continue to monitor.
--- NOTE | 2022-06-11 03:22 | NUR ---
Got up to the BR and is now walking around unit with coffee in hand quietly.Using her quiet voice to speak to staff. Will continue to monitor.
--- NOTE | 2022-06-11 05:37 | NUR ---
Patient resting in bed with eyes closed after using BR. Pleasant and cooperative. Will continue to monitor.
--- NOTE | 2022-06-11 07:00 | NUR ---
Patient awake sitting in her recliner. No distress noted.
[2022-06-11] MEDS: ascorbic acid 500mg tablet PO SCH ×2 (08:43→20:00)
[2022-06-11] MEDS: multivitamins, therapeutics tablet PO SCH (08:43)
[2022-06-11] MEDS: clonazePAM 0.5mg tablet PO SCH ×3 (08:43→16:24)
[2022-06-11] MEDS: atorvastatin 10mg tablet PO SCH (08:43)
[2022-06-11] MEDS: sennosides 8.6mg tablet PO SCH ×2 (08:43→20:00)
[2022-06-11] MEDS: lamoTRIgine 100mg tablet PO SCH ×2 (08:44→20:00)
[2022-06-11] MEDS: lactobacillus rhamnosus 10,000 MMU CELLS/CAPSULE PO SCH ×2 (08:44→20:00)
[2022-06-11] MEDS: ziprasidone 20mg capsule PO SCH ×2 (08:44→20:00)
[2022-06-11] MEDS: ferrous sulfate 325mg tablet PO SCH ×2 (08:44→20:00)
[2022-06-11] MEDS: vortioxetine HBr tablet 5 MG TABLET PO SCH ×2 (08:44→20:00)
--- NOTE | 2022-06-11 09:00 | NUR ---
Pt is requested to sit and elevate her legs, pt is compliant. Pt compliant with her medications, given with yogurt.
--- NOTE | 2022-06-11 09:27 | NUR ---
Kimani the tech changed patients linen and patient washed up withnew scrub pants and gown. Also patient put on deodorant herslelf and RN braided her hair.
--- NOTE | 2022-06-11 09:29 | NUR ---
Patient is also sitting in the recliner chair with legs up relaxing.
--- NOTE | 2022-06-11 09:36 | NUR ---
patient is now going to the bathroom. Pt sat in chair for 17 mins and is aware to keep her legs propped up.
--- NOTE | 2022-06-11 09:58 | NUR ---
pt is still in bathroom and pt had a BM!
--- NOTE | 2022-06-11 10:15 | NUR ---
pt got to the chair @1007 and sitting up in cahir with legs propped up
[2022-06-11] MEDS: acetaminophen w/codeine (30MG) #3 tablet PO PRN (10:26)
--- NOTE | 2022-06-11 10:29 | NUR ---
Pt reported back pain, PRN Tylenol with codeine administered.
--- NOTE | 2022-06-11 10:41 | NUR ---
pt is now at sink washing her head bands pt has been using the walker the whole time.
--- NOTE | 2022-06-11 10:47 | NUR ---
pt is now back in chair with her legs elevated. pt keeps saying she is hungry but had breakfast already.
--- NOTE | 2022-06-11 10:50 | NUR ---
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 RN gretchen jackson wrapped her up up and cleaned her up
--- NOTE | 2022-06-11 11:22 | NUR ---
pt is up from chair and standing in front of her bed with her walker
--- NOTE | 2022-06-11 11:56 | NUR ---
pt up again and walking around with walker.
--- NOTE | 2022-06-11 12:59 | NUR ---
pt up and walking around with walker
--- NOTE | 2022-06-11 13:18 | NUR ---
pt at bedside and cleaning pts cancer carcenoma on left side of face. pt is sitting in chair
--- NOTE | 2022-06-11 13:29 | NUR ---
Wound care completed. Pt tolerated well.
--- NOTE | 2022-06-11 13:39 | NUR ---
pt sitting in recliner chair with her legs elevated
--- NOTE | 2022-06-11 15:58 | NUR ---
Patient ambulated to nurses station and politely asked for a cup of coffee. Request was granted.
[2022-06-11] MEDS: quetiapine fumarate ER 300mg tablet PO SCH (16:24)
--- NOTE | 2022-06-11 17:16 | NUR ---
Pt ambulating on unit with FWW. Pt wants to take a shower and has asked throughout the day. Unable to take to shower due to lack of staff. Pt was given hygiene items and washed self earlier in the shift. Pt has intermittent episodes of outbursts r/t to getting what she wants.
--- NOTE | 2022-06-11 17:50 | NUR ---
Glass Finisher asssited patient with ja care and a new depends. Upon assessment noted erythema and a strong yeasty smell. Pt was cleaned and Nystatin powder applied. Will forward to [facility] shift.
--- NOTE | 2022-06-11 20:40 | NUR ---
Pt has been calm and quiet this shift. Walking around unit no attempts to elope. Sitting quietly in chair at bedside at this time. She refused her medications. Will attempt again to administer.
[2022-06-11] MEDS: polyethylene glycol 3350 17gm powd pack PO SCH (21:00)
[2022-06-11] MEDS: fluvoxamine 25 MG tablet PO SCH (21:00)
[2022-06-11] MEDS: montelukast 10mg tablet PO SCH (21:00)
[2022-06-11] MEDS: docusate sod 250mg capsule PO SCH (21:00)
[2022-06-11] MEDS ORDERED: ziprasidone IM 20mg inj **IM only IM ONE (22:00)
[2022-06-11] MEDS: clonazePAM 0.5mg tablet PO PRN (22:16)
--- NOTE | 2022-06-11 22:19 | NUR ---
Pt continued to refuse meds. Began to get more and more agitated given IM 20mg Geodon per order. Pt also took regular HS meds. Lying in bed at this time yelling "I hate you you slut"
--- NOTE | 2022-06-11 23:14 | NUR ---
Pt sleeping at this time.
--- NOTE | 2022-06-12 01:36 | NUR ---
Pt sleeping resp even and unlabored. Pt repositions self.
--- NOTE | 2022-06-12 03:14 | NUR ---
Pt awake. Incontinent large amount of urine complete clothing and linen change. Red areas under pannus and ja area cleaned of old wet powder new dry nystatin powder applied. Pt is sitting in chair at bedside at this time.
--- NOTE | 2022-06-12 05:25 | NUR ---
Pt went back to sleep for over an hour. Awake in bed at this time out of bed with walker then back to bed.
--- NOTE | 2022-06-12 06:52 | NUR ---
Pt awake standing at nurses station. Pt calm.
--- NOTE | 2022-06-12 07:08 | NUR ---
pt is walking around with the walker
[2022-06-12] MEDS: ziprasidone 20mg capsule PO SCH ×2 (07:42→20:25)
[2022-06-12] MEDS: vortioxetine HBr tablet 5 MG TABLET PO SCH ×2 (07:42→20:24)
[2022-06-12] MEDS: lactobacillus rhamnosus 10,000 MMU CELLS/CAPSULE PO SCH ×2 (07:42→20:24)
[2022-06-12] MEDS: sennosides 8.6mg tablet PO SCH ×2 (07:42→20:25)
[2022-06-12] MEDS: ferrous sulfate 325mg tablet PO SCH ×2 (07:42→20:25)
[2022-06-12] MEDS: ascorbic acid 500mg tablet PO SCH ×2 (07:42→20:24)
[2022-06-12] MEDS: clonazePAM 0.5mg tablet PO SCH ×3 (07:42→17:00)
[2022-06-12] MEDS: atorvastatin 10mg tablet PO SCH (07:42)
[2022-06-12] MEDS: lamoTRIgine 100mg tablet PO SCH ×2 (07:42→20:24)
[2022-06-12] MEDS: multivitamins, therapeutics tablet PO SCH (07:42)
[2022-06-12] MEDS: nicotine 7mg patch - 24hr TD SCH ×2 (07:43→08:00)
--- NOTE | 2022-06-12 09:30 | NUR ---
Pt is lying on her bed sleeping, rr even and unlabored. Pt has been encouraged throught the morning to lift her head, this makes it easier for patient to see and helps open up the airway.
--- NOTE | 2022-06-12 09:49 | NUR ---
pt is finally sleeping on left side.
--- NOTE | 2022-06-12 10:48 | NUR ---
Pt slept for about 40 minutes. Pt woke up incontinent of urine. Street Openings Inspector assisted pt with clean pants and depends. Mari area was cleansed and a Nystatin powder applied. Pt's pannus is inflammed and yeasty, however erythema has slightly decreased since yesterday. Will continue to monitor.
--- NOTE | 2022-06-12 11:35 | NUR ---
Pt yelling "I am starving!" "I want some fu...ing food!" "You slut I am starving!" Pt was redirected back to her room, real estate underwriter reinforced the proper way to speak to people. Punch Press Operator explained that lunch would be here in 25 minutes. Pt calmed and sat in her chair.
--- NOTE | 2022-06-12 13:03 | NUR ---
Pt sitting quietly in her recliner.
[2022-06-12] MEDS: acetaminophen w/codeine (30MG) #3 tablet PO PRN (15:15)
--- NOTE | 2022-06-12 15:20 | NUR ---
Pt yelling "I want coffee!" "If you don't get me any, I will get it myself!" Pt required mulitple attempts of redirection and therapeutic conversation before she went back to her room. Pt has to be NPO before her CT scan at 1700. Pt began to pick off the dressing on her cheek. Pt was able to calm pt for a short time.
--- NOTE | 2022-06-12 16:20 | NUR ---
Shaylee from [facility] is at bedside having the patient sign papers for a career services coordinator starting hopefully on sunday for 24 hour care. jaz from [facility] is coming wednesday 06/14 to do an assessment to be placed somewhere.
[2022-06-12] MEDS ORDERED: iohexol 300mg/ml 100ml inj. ONE (17:17)
[2022-06-12] MEDS ORDERED: ziprasidone IM 20mg inj **IM only IM ONE (17:20)
[2022-06-12] MEDS ORDERED: iohexol 350 MG/ML 50ML vial IV ONE (17:24)
--- NOTE | 2022-06-12 17:32 | NUR ---
Pt left unit for CT scan. Pt was given IM Geodon for calming. Pt was tearful and yelling wanting coffee. Lift Manager explained that she couldn't have any until after the test. Pt will receive coffee when she gets back to unit. Pt was accompanied by KERON Harman.
[2022-06-12] MEDS: quetiapine fumarate ER 300mg tablet PO SCH (17:36)
--- NOTE | 2022-06-12 18:20 | NUR ---
Pt returned to the unit around 180. It was reported that she did excellent during the scan. Pt immediately said "I am hungry where is my coffee." Pt is now eating her dinner. Will continue to monitor.
--- NOTE | 2022-06-12 18:30 | NUR ---
REINFORCED THE IMPORTANCE OF NOT PLACING HER HAIR BANDS AROUND HER NECK. THIS IS CAUSING A ERYTHEMA TO ANTERIOR NECK. HAIR BANDS IN PERSONAL BUCKET IN CLEAN UTILITY,.
--- NOTE | 2022-06-12 19:10 | NUR ---
Patient in bathroom cleaning up. Will give clean scrubs when finished.
--- NOTE | 2022-06-12 19:41 | NUR ---
Patient washed hair, resume writer assisted with periarea. Pt has decreased erythema, however continues to need Nystatin powder TID. Yeasty smell has drastically decreased. Nystatin powder applied , clean gown, pants and depends given.
[2022-06-12] MEDS: docusate sod 250mg capsule PO SCH (20:27)
[2022-06-12] MEDS: fluvoxamine 25 MG tablet PO SCH (20:28)
[2022-06-12] MEDS: polyethylene glycol 3350 17gm powd pack PO SCH (20:28)
[2022-06-12] MEDS: montelukast 10mg tablet PO SCH (20:28)
--- NOTE | 2022-06-12 20:30 | NUR ---
Pt continues with restless behavior. PM medications given without issue. Pt intermittently screams "I want to go home." Pt is semi redirectable.
--- NOTE | 2022-06-12 20:45 | NUR ---
Pt attempted to elope screaming "I want to go home!!!" Pt was stopped at the exit. Pt continued to scream, and nicolas, database report writer was unable to verbally deescalate. Security was called and they assisted staff with patient. Pt was placed back into bed. Pt at first refused PRN Klonipin PO, however was compliant once in bed. Will continue to monitor.
--- NOTE | 2022-06-12 21:30 | NUR ---
Pt sleeping comfortably. Sealer Sander covered pt with blanket and placed pillows for comfort. Will continue to monitor.
[2022-06-12] MEDS: clonazePAM 0.5mg tablet PO PRN (21:33)
--- NOTE | 2022-06-12 23:52 | NUR ---
Pt woke and had to use the bathroom. Pt was incontinent of urine, depends and pants changed.
--- NOTE | 2022-06-12 23:59 | NUR ---
Patient awake unable to get her back to bed, ambulating unit with FWW. Pt calm at this time.
--- NOTE | 2022-06-13 00:38 | NUR ---
Pt c/o pain "I need a pain pill." When asked where pt stated "All over." Tylenol w/codeine administered. Pt restless. Will continue to monitor.
[2022-06-13] MEDS: acetaminophen w/codeine (30MG) #3 tablet PO PRN ×2 (00:44→11:27)
--- NOTE | 2022-06-13 01:30 | NUR ---
Hospice/Home Health Aide braided hair, cleansed and dressed cheek wound.
--- NOTE | 2022-06-13 02:40 | NUR ---
Pt sleeping comfortably in her recliner. RR even and unlabored.
--- NOTE | 2022-06-13 03:30 | NUR ---
Patient woke and requested coffee. Pt has been polite asking "please."
--- NOTE | 2022-06-13 05:51 | NUR ---
Pt sitting in her recliner eating a reyna cracker. Head Of Talent Management assisted patient with putting her socks on.
--- NOTE | 2022-06-13 06:40 | NUR ---
Patient yelling out wanting out. Patient is not happy today. Continue to monitor.
--- NOTE | 2022-06-13 07:02 | NUR ---
PT CHANGING INTO NEW GOWN AND SWEATS, NO ASSISTANCE NEEDED.
[2022-06-13] MEDS: atorvastatin 10mg tablet PO SCH ×2 (08:00→08:34)
[2022-06-13] MEDS: lamoTRIgine 100mg tablet PO SCH ×3 (08:00→20:50)
[2022-06-13] MEDS: vortioxetine HBr tablet 5 MG TABLET PO SCH ×3 (08:00→20:51)
[2022-06-13] MEDS: ziprasidone 20mg capsule PO SCH ×3 (08:00→20:08)
[2022-06-13] MEDS: ferrous sulfate 325mg tablet PO SCH ×3 (08:00→20:50)
[2022-06-13] MEDS: ascorbic acid 500mg tablet PO SCH ×3 (08:00→20:50)
[2022-06-13] MEDS: lactobacillus rhamnosus 10,000 MMU CELLS/CAPSULE PO SCH ×3 (08:00→20:50)
[2022-06-13] MEDS: multivitamins, therapeutics tablet PO SCH ×2 (08:00→08:34)
[2022-06-13] MEDS: sennosides 8.6mg tablet PO SCH ×3 (08:00→20:50)
--- NOTE | 2022-06-13 08:22 | NUR ---
Patient eating breakfast. No distress observed. Continue to monitor.
[2022-06-13] MEDS: clonazePAM 0.5mg tablet PO SCH ×3 (08:34→16:58)
[2022-06-13] MEDS: nicotine 7mg patch - 24hr TD SCH (08:35)
--- NOTE | 2022-06-13 10:20 | NUR ---
Patient upset that she is still here. Patient wants a home now! RN explains to patient that [facility] is attempting to find her placement and she has and interview tomorrow. Patient continues to yell "They won't let me out!". Continue to monitor.
--- NOTE | 2022-06-13 12:10 | NUR ---
Patient eating lunch and crying, "I want to go home! I want to go home!" Continue to monitor.
--- NOTE | 2022-06-13 13:40 | NUR ---
RN braided patient's hair in piggy tails as patient requested. Patient is calm and in no distress. Contnue to monitor.
--- NOTE | 2022-06-13 14:18 | NUR ---
Patient sitting in her recliner and took out her piggy tails. Patient now has a pony tail. Continue to monitor.
--- NOTE | 2022-06-13 16:19 | NUR ---
Patient reclining in her recliner. No distress observed. Continue to monitor.
[2022-06-13] MEDS: quetiapine fumarate ER 300mg tablet PO SCH (16:58)
--- NOTE | 2022-06-13 19:32 | NUR ---
The patient is quiet and taking care of her ADLs. She requested to have a dressing applied to her face and a clean dressing applied by the ACTUARIAL ASSOCIATE.
[2022-06-13] MEDS: docusate sod 250mg capsule PO SCH (20:50)
[2022-06-13] MEDS: polyethylene glycol 3350 17gm powd pack PO SCH (20:50)
[2022-06-13] MEDS: montelukast 10mg tablet PO SCH (20:50)
[2022-06-13] MEDS: fluvoxamine 25 MG tablet PO SCH (20:50)
--- NOTE | 2022-06-13 22:32 | NUR ---
The patient appears to be sleeping
--- NOTE | 2022-06-14 00:06 | NUR ---
The patient appears to be sleeping
--- NOTE | 2022-06-14 02:06 | NUR ---
The patient appears to be sleeping
--- NOTE | 2022-06-14 04:04 | NUR ---
The patient up to use the bathroom and change her clothes and brief. She had a snack and coffee and is now resting back on her bed.
--- NOTE | 2022-06-14 05:06 | NUR ---
The patient appears to be back asleep
--- NOTE | 2022-06-14 06:50 | NUR ---
RN taking patient to the shower by the old HR in w/c. No distress observed. Continue to monitor.
--- NOTE | 2022-06-14 08:11 | NUR ---
Patient eating lunch. No distress observed. Continue to monitor.
[2022-06-14] MEDS: ascorbic acid 500mg tablet PO SCH ×2 (08:33→20:00)
[2022-06-14] MEDS: clonazePAM 0.5mg tablet PO SCH ×3 (08:34→17:13)
[2022-06-14] MEDS: ziprasidone 20mg capsule PO SCH ×2 (08:34→19:26)
[2022-06-14] MEDS: sennosides 8.6mg tablet PO SCH ×2 (08:34→20:00)
[2022-06-14] MEDS: lamoTRIgine 100mg tablet PO SCH ×2 (08:34→20:00)
[2022-06-14] MEDS: atorvastatin 10mg tablet PO SCH (08:34)
[2022-06-14] MEDS: lactobacillus rhamnosus 10,000 MMU CELLS/CAPSULE PO SCH ×2 (08:34→20:00)
[2022-06-14] MEDS: ferrous sulfate 325mg tablet PO SCH ×2 (08:34→20:00)
[2022-06-14] MEDS: multivitamins, therapeutics tablet PO SCH (08:34)
[2022-06-14] MEDS: vortioxetine HBr tablet 5 MG TABLET PO SCH ×2 (08:34→20:00)
[2022-06-14] MEDS: nicotine 7mg patch - 24hr TD SCH (08:35)
--- NOTE | 2022-06-14 10:09 | NUR ---
Patient sitting in her recliner. No distress observed. Continue to monitor.
--- NOTE | 2022-06-14 12:04 | NUR ---
Patient eating breakfast. No distress observed. Continue to monitor.
--- NOTE | 2022-06-14 13:34 | NUR ---
Patient calm and walking around the unit. No distress observed. Continue to monitor.
--- NOTE | 2022-06-14 14:50 | NUR ---
Patient has [facility], a nurse and the first aid trainer of the [facility] at her bedside. RN also speaking with RN and patient. Continue to monitor.
--- NOTE | 2022-06-14 16:59 | NUR ---
Patient a little slower today. No distress observed. Continue to monitor.
[2022-06-14] MEDS: quetiapine fumarate ER 300mg tablet PO SCH (17:13)
[2022-06-14] MEDS: acetaminophen w/codeine (30MG) #3 tablet PO PRN (18:42)
--- NOTE | 2022-06-14 18:43 | NUR ---
RN gave patient Tylenol #3 at 1345. RN got distracted because [employer] was with patient for interview. May give next dose at 2145 or later.
--- NOTE | 2022-06-14 20:30 | NUR ---
Patient recieved standing in room straightening table and asking for coffee. Patient was given scheduled geodon and returned to sitting in chair. Patient self transfered to the bathroom but required assistence putting new clothes on. Patient refused rest of night medications. Patient kept asking to wash her hair in shower but eventually settled for a bucket and shampoo.
[2022-06-14] MEDS: polyethylene glycol 3350 17gm powd pack PO SCH (20:34)
[2022-06-14] MEDS: docusate sod 250mg capsule PO SCH (20:44)
[2022-06-14] MEDS: fluvoxamine 25 MG tablet PO SCH (20:44)
[2022-06-14] MEDS: montelukast 10mg tablet PO SCH (20:45)
--- NOTE | 2022-06-14 22:16 | NUR ---
Patient currently sleeping in bed. breath sound even and unlabored
--- NOTE | 2022-06-15 00:30 | NUR ---
Patient continues to sleep. Patient transported herself into bed instead of shair this shift.
--- NOTE | 2022-06-15 02:33 | NUR ---
Patient just woke up and transported to the bathroom. Patients bedding was changed and patient was given new clothing and washed her face. Patient was given coffee and returned to her chair.
--- NOTE | 2022-06-15 04:35 | NUR ---
Patient continues to walk around unit mumbling and asking for food and drinks. Patient continues to ask to take a shower and now has gotten washcloth and towel and taking bird bath in bathroom.
--- NOTE | 2022-06-15 05:28 | NUR ---
Patient complaining of irritation of neck fold. Neck does appear to be red will notifiy morning nurse.
--- NOTE | 2022-06-15 07:00 | NUR ---
Pt. awake, requesting coffee, ambulating with 4WW, no distress noted.
[2022-06-15] MEDS: multivitamins, therapeutics tablet PO SCH (07:30)
[2022-06-15] MEDS: ziprasidone 20mg capsule PO SCH ×2 (07:30→20:55)
[2022-06-15] MEDS: lamoTRIgine 100mg tablet PO SCH ×2 (07:30→20:55)
[2022-06-15] MEDS: ascorbic acid 500mg tablet PO SCH ×2 (07:30→20:55)
[2022-06-15] MEDS: clonazePAM 0.5mg tablet PO SCH ×3 (07:31→16:23)
[2022-06-15] MEDS: sennosides 8.6mg tablet PO SCH ×2 (07:31→20:55)
[2022-06-15] MEDS: vortioxetine HBr tablet 5 MG TABLET PO SCH ×2 (07:31→20:55)
[2022-06-15] MEDS: ferrous sulfate 325mg tablet PO SCH ×2 (07:31→20:55)
[2022-06-15] MEDS: atorvastatin 10mg tablet PO SCH (07:31)
[2022-06-15] MEDS: lactobacillus rhamnosus 10,000 MMU CELLS/CAPSULE PO SCH ×2 (07:31→20:56)
[2022-06-15] MEDS: nicotine 7mg patch - 24hr TD SCH (07:32)
--- NOTE | 2022-06-15 09:00 | NUR ---
Pt. awake standing at nurses station talking to tech, no distress noted.
--- NOTE | 2022-06-15 10:30 | NUR ---
Pt. yelling at staff, holding her neck. She c/o pain on Lt. lower side;PRN Tylenol #3 administered.
[2022-06-15] MEDS: acetaminophen w/codeine (30MG) #3 tablet PO PRN (10:39)
--- NOTE | 2022-06-15 12:12 | NUR ---
Pt. awake, sitting in a chair, and eating lunch.
--- NOTE | 2022-06-15 14:12 | NUR ---
Pt. awake, ambulating with 4WW at a slow pace, no distress
[2022-06-15] MEDS: acetaminophen 325mg tablet PO PRN (14:41)
--- NOTE | 2022-06-15 16:15 | NUR ---
Agree with [facility] LINUX ADMIN ENGINEER charting
[2022-06-15] MEDS: quetiapine fumarate ER 300mg tablet PO SCH (16:22)
--- NOTE | 2022-06-15 18:00 | NUR ---
pt refused to allow tech to do pt vitals, upon chairman ceo tech arrival, tag writer will inform tech to get pt vitals.
--- NOTE | 2022-06-15 18:04 | NUR ---
Pt. eating dinner, no distress noted.
--- NOTE | 2022-06-15 18:55 | NUR ---
Patient wanted gown changed. RN gave patient a new gown and green pants. Continue to monitor.
--- NOTE | 2022-06-15 20:39 | NUR ---
Patient took her medication in pudding. No distress observed. Continue to monitor.
[2022-06-15] MEDS: fluvoxamine 25 MG tablet PO SCH (20:55)
[2022-06-15] MEDS: montelukast 10mg tablet PO SCH (20:55)
[2022-06-15] MEDS: docusate sod 250mg capsule PO SCH (20:55)
[2022-06-15] MEDS: polyethylene glycol 3350 17gm powd pack PO SCH (21:00)
--- NOTE | 2022-06-15 21:20 | NUR ---
Patient put herself to bed at 2100. Patient appears to be sleeping. No distress observed. Continue to monitor.
--- NOTE | 2022-06-15 23:33 | NUR ---
Patient continues to sleep. No distress observed. Continue to monitor.
--- NOTE | 2022-06-16 01:07 | NUR ---
Patient sleeping supine. No distress observed. Continue to monitor.
--- NOTE | 2022-06-16 02:44 | NUR ---
Patient continues to sleep. No distress observed. Continue to monitor.
--- NOTE | 2022-06-16 03:15 | NUR ---
Patient awake and soaked her bed. Patient went to the BR to clean herself up. Marlney Oro, cleaned patient's bed. RN gave patient a snack and put clean socks on her. Continue to monitor.
--- NOTE | 2022-06-16 04:07 | NUR ---
Patient laying supine in bed. Patient appears to be asleep. Continue to monitor.
[2022-06-16] MEDS: acetaminophen w/codeine (30MG) #3 tablet PO PRN ×2 (04:45→15:23)
--- NOTE | 2022-06-16 04:45 | NUR ---
Patient asking for a pain pill. RN added a pain pill last night with her regular night meds (2056) as she asked for one as I was giving her her regular nighttime meds. RN forgot to scan it. Patient is asking for a pain medication. Patient is able to get a pain medicine now. Continue to monitor.
--- NOTE | 2022-06-16 05:40 | NUR ---
Patient in her room cleaning up with warm water and wash cloths. Continue to monitor.
--- NOTE | 2022-06-16 07:00 | NUR ---
Pt. awake and requesting her hair be braided, no c/o pain.
[2022-06-16] MEDS: lactobacillus rhamnosus 10,000 MMU CELLS/CAPSULE PO SCH ×2 (07:52→20:34)
[2022-06-16] MEDS: sennosides 8.6mg tablet PO SCH ×2 (07:52→20:36)
[2022-06-16] MEDS: ferrous sulfate 325mg tablet PO SCH ×2 (07:52→20:34)
[2022-06-16] MEDS: ziprasidone 20mg capsule PO SCH ×2 (07:53→20:36)
[2022-06-16] MEDS: atorvastatin 10mg tablet PO SCH (07:53)
[2022-06-16] MEDS: vortioxetine HBr tablet 5 MG TABLET PO SCH ×2 (07:53→20:36)
[2022-06-16] MEDS: ascorbic acid 500mg tablet PO SCH ×2 (07:53→20:36)
[2022-06-16] MEDS: multivitamins, therapeutics tablet PO SCH (07:53)
[2022-06-16] MEDS: lamoTRIgine 100mg tablet PO SCH ×2 (07:53→20:36)
[2022-06-16] MEDS: clonazePAM 0.5mg tablet PO SCH ×3 (07:53→18:52)
[2022-06-16] MEDS: nicotine 7mg patch - 24hr TD SCH (07:54)
--- NOTE | 2022-06-16 09:10 | NUR ---
Pt. finished breakfast, walking around unit with a book while using front wheel walker, redirected for safety, pt. compliant.
--- NOTE | 2022-06-16 11:05 | NUR ---
Pt. c/o neck pain; PRN Tylenol administered. Snack provided and pt was assisted with adjusting her posoition in chair
[2022-06-16] MEDS: acetaminophen 325mg tablet PO PRN (11:08)
--- NOTE | 2022-06-16 12:30 | NUR ---
Pt. awake and sitting on side of the bed eating lunch.
--- NOTE | 2022-06-16 14:30 | NUR ---
Pt. asleep in chair, no distress noted.
[2022-06-16] MEDS: quetiapine fumarate ER 300mg tablet PO SCH (15:22)
--- NOTE | 2022-06-16 16:30 | NUR ---
Pt. at nurses station yelling at staff, demanding coffee and lunch, all which has been provided 15 min. ago. Pt. is difficult to redirect
--- NOTE | 2022-06-16 18:30 | NUR ---
pt. sitting up in chair eating dinner
--- NOTE | 2022-06-16 19:30 | NUR ---
pt. sitting in chair eating
--- NOTE | 2022-06-16 20:30 | NUR ---
Pt. requested to washup in the restroom. Supplies were provided by staff. After pt. washed up, this PRESCHOOL TEACHER ASSISTANT went to give pt. her medications. She bagan to yell and scream "i am not taking my night time medication at 11 something in the afternoon". Pt. continued to yell and scream. Pt. finally took her medications after some time.
[2022-06-16] MEDS: polyethylene glycol 3350 17gm powd pack PO SCH (20:34)
[2022-06-16] MEDS: fluvoxamine 25 MG tablet PO SCH (20:37)
[2022-06-16] MEDS: montelukast 10mg tablet PO SCH (20:37)
[2022-06-16] MEDS: docusate sod 250mg capsule PO SCH (20:37)
--- NOTE | 2022-06-16 21:30 | NUR ---
pt. ambulating with FWW in the unit.
--- NOTE | 2022-06-16 23:04 | NUR ---
pt. awake and sitting in chair eating a sandwich
--- NOTE | 2022-06-17 00:21 | NUR ---
patient is awake. Pt. has been yelling for random items such as green scrub top, a new mask, and coffee
--- NOTE | 2022-06-17 01:01 | NUR ---
patient up ambulating, yelling for pants. Pt. redirected to return to room.
--- NOTE | 2022-06-17 02:40 | NUR ---
pt. pulled off dressing to left side of face. New dressing was applied. Pt. is currently standing next to bed w/ FWW
--- NOTE | 2022-06-17 03:38 | NUR ---
pt. sitting in chair eating reyna crackers
[2022-06-17] MEDS: acetaminophen w/codeine (30MG) #3 tablet PO PRN (03:52)
--- NOTE | 2022-06-17 05:24 | NUR ---
pt. sitting in chair talking to herself and eating a snack
--- NOTE | 2022-06-17 06:30 | NUR ---
Pt awake talking and pacing around the unit.
--- NOTE | 2022-06-17 08:24 | NUR ---
Pt up pacing left the unit once. She was brought back to the unit in a W/C.
--- NOTE | 2022-06-17 08:45 | NUR ---
Pt ate all her breakfast; 100%. Took her morning meds and is just sitting.
[2022-06-17] MEDS: atorvastatin 10mg tablet PO SCH (08:55)
[2022-06-17] MEDS: sennosides 8.6mg tablet PO SCH ×2 (08:55→22:35)
[2022-06-17] MEDS: lactobacillus rhamnosus 10,000 MMU CELLS/CAPSULE PO SCH ×2 (08:55→22:34)
[2022-06-17] MEDS: ziprasidone 20mg capsule PO SCH ×2 (08:56→22:34)
[2022-06-17] MEDS: multivitamins, therapeutics tablet PO SCH (08:56)
[2022-06-17] MEDS: ferrous sulfate 325mg tablet PO SCH ×2 (08:56→22:34)
[2022-06-17] MEDS: clonazePAM 0.5mg tablet PO SCH ×4 (08:56→16:49)
[2022-06-17] MEDS: lamoTRIgine 100mg tablet PO SCH ×2 (08:56→22:35)
[2022-06-17] MEDS: nicotine 7mg patch - 24hr TD SCH (10:35)
[2022-06-17] MEDS: ascorbic acid 500mg tablet PO SCH ×2 (10:35→22:35)
[2022-06-17] MEDS: vortioxetine HBr tablet 5 MG TABLET PO SCH ×2 (10:35→22:35)
--- NOTE | 2022-06-17 12:00 | NUR ---
Pt up yelling that she is and needs a sonogram. She is demanding to leave. She will not allow anyone to redirect her.
--- NOTE | 2022-06-17 13:55 | NUR ---
Pt is up yelling and is demanding. If she is not given what she wants when she wants it she is disruptive to the other pt's waking them and upsetting them.
[2022-06-17] MEDS: clonazePAM 0.5mg tablet PO PRN (14:45)
--- NOTE | 2022-06-17 14:45 | NUR ---
Pt given Klonopin 1mg PRN for agitation.
[2022-06-17] MEDS: quetiapine fumarate ER 300mg tablet PO SCH (16:40)
--- NOTE | 2022-06-17 16:50 | NUR ---
Pt's medications are not touching her. If pt wants something she will scream and yell waking up the other pts until she is given what she wants. Pt has spent the afternoon yelling for "food" "coffee" etc.
--- NOTE | 2022-06-17 18:10 | NUR ---
Pt is sleeping sitting up.
--- NOTE | 2022-06-17 18:47 | NUR ---
pt. is sleeping sitting up in chair
--- NOTE | 2022-06-17 22:30 | NUR ---
pt. is awake and in the restroom.
[2022-06-17] MEDS: montelukast 10mg tablet PO SCH (22:36)
[2022-06-17] MEDS: polyethylene glycol 3350 17gm powd pack PO SCH (22:36)
[2022-06-17] MEDS: docusate sod 250mg capsule PO SCH (22:36)
[2022-06-17] MEDS: fluvoxamine 25 MG tablet PO SCH (22:36)
--- NOTE | 2022-06-18 | NUR ---
pt. is awake yelling and screaming "I want food, I want to leave, I want coffee". Pt. trying to walk towards the exit to leave. Pt. was redirected to go sit down . Pt. continues to yell "Im hungry" while currently eating.
[2022-06-18] MEDS: clonazePAM 0.5mg tablet PO PRN ×2 (01:18→20:13)
--- NOTE | 2022-06-18 01:26 | NUR ---
pt. given PRN klonopin 1mg for agitation
--- NOTE | 2022-06-18 02:00 | NUR ---
pt. finally went and layed down in bed and appears to be sleeping.
--- NOTE | 2022-06-18 04:07 | NUR ---
pt. lying in bed on left side and appears to be sleeping without difficulty.
--- NOTE | 2022-06-18 05:41 | NUR ---
pt. awake standing next to bed. New dressing applied to left side of face.
--- NOTE | 2022-06-18 07:00 | NUR ---
Pt awake sitting in her chair. Pt drinking a cup of coffee. Received in report pt slept four hours.
[2022-06-18] MEDS: multivitamins, therapeutics tablet PO SCH (07:45)
[2022-06-18] MEDS: vortioxetine HBr tablet 5 MG TABLET PO SCH ×2 (07:45→20:13)
[2022-06-18] MEDS: lactobacillus rhamnosus 10,000 MMU CELLS/CAPSULE PO SCH ×2 (07:46→20:14)
[2022-06-18] MEDS: ferrous sulfate 325mg tablet PO SCH ×2 (07:46→20:14)
[2022-06-18] MEDS: lamoTRIgine 100mg tablet PO SCH ×2 (07:46→20:14)
[2022-06-18] MEDS: atorvastatin 10mg tablet PO SCH (07:46)
[2022-06-18] MEDS: clonazePAM 0.5mg tablet PO SCH ×3 (07:46→17:24)
[2022-06-18] MEDS: sennosides 8.6mg tablet PO SCH ×2 (07:46→20:14)
[2022-06-18] MEDS: ziprasidone 20mg capsule PO SCH ×2 (07:46→20:13)
[2022-06-18] MEDS: ascorbic acid 500mg tablet PO SCH ×2 (07:46→20:14)
[2022-06-18] MEDS: nicotine 7mg patch - 24hr TD SCH (07:47)
--- NOTE | 2022-06-18 09:00 | NUR ---
Pt ate 100% of her breakfast. Pt was compliant with her medication.
--- NOTE | 2022-06-18 10:45 | NUR ---
Pt sleeping in her chair, rr even and unlabored.
--- NOTE | 2022-06-18 11:35 | NUR ---
Pt woke requesting a new gown.
--- NOTE | 2022-06-18 16:00 | NUR ---
Pt attempted to elope was found outside unit by doors. Pt was screaming "I want my wheelchair!" Security helped comic book writer get pt back to bed. Pt continued to scream and eventually calmed down. Head phones were given to patient which helped calm her.
[2022-06-18] MEDS: quetiapine fumarate ER 300mg tablet PO SCH (17:24)
--- NOTE | 2022-06-18 17:35 | NUR ---
Scheduled medication Klonopin and Seroquel administered
[2022-06-18] MEDS: fluvoxamine 25 MG tablet PO SCH (20:13)
[2022-06-18] MEDS: docusate sod 250mg capsule PO SCH (20:14)
[2022-06-18] MEDS: montelukast 10mg tablet PO SCH (20:14)
[2022-06-18] MEDS: polyethylene glycol 3350 17gm powd pack PO SCH (20:23)
[2022-06-18] MEDS ORDERED: ziprasidone IM 20mg inj **IM only IM ONE (21:15)
--- NOTE | 2022-06-18 23:01 | NUR ---
Pt is sleeping in bed at this time. She was up on unit at start of shift. Assisted to clean up and change clothes provided with snack. Pt was cooperative at first took HS meds refused Miralax. Pt behavior became more and more agitated. At 2129 she attempted to elope. It process of trying to detain her the tech was scratched several times, small amount of bleeding. Pt was returned to unit by security taken to bed. 10 mg of Geodon IM administered and was effective. Tech filed occurrence report, was seen in ER and will follow up [facility]
--- NOTE | 2022-06-19 02:56 | NUR ---
Pt continues to sleep. Resp even and unlabored.
--- NOTE | 2022-06-19 04:20 | NUR ---
Pt remains sleeping without interuption. Resp even and unlabored.
--- NOTE | 2022-06-19 06:04 | NUR ---
Pt ambulated to BR independantly with FWW. Requested assistance to change clothes. Pericare done. Pt continent urine, returned to chair sitting at bedside at this time.
--- NOTE | 2022-06-19 07:02 | NUR ---
Pt continues to putter around her room. Pt using FWW with slow, steady gait. Pt requested another cup of coffee which was given. Pt was assisted into her clean bra.
[2022-06-19] MEDS: lamoTRIgine 100mg tablet PO SCH ×2 (08:05→20:46)
[2022-06-19] MEDS: ascorbic acid 500mg tablet PO SCH ×2 (08:05→20:47)
[2022-06-19] MEDS: atorvastatin 10mg tablet PO SCH (08:05)
[2022-06-19] MEDS: vortioxetine HBr tablet 5 MG TABLET PO SCH ×2 (08:05→20:47)
[2022-06-19] MEDS: clonazePAM 0.5mg tablet PO SCH ×3 (08:06→16:56)
[2022-06-19] MEDS: nicotine 7mg patch - 24hr TD SCH (08:06)
[2022-06-19] MEDS: lactobacillus rhamnosus 10,000 MMU CELLS/CAPSULE PO SCH ×2 (08:06→20:46)
[2022-06-19] MEDS: ferrous sulfate 325mg tablet PO SCH ×2 (08:06→20:48)
[2022-06-19] MEDS: ziprasidone 20mg capsule PO SCH ×2 (08:06→20:47)
[2022-06-19] MEDS: multivitamins, therapeutics tablet PO SCH (08:06)
[2022-06-19] MEDS: sennosides 8.6mg tablet PO SCH ×2 (08:06→20:48)
--- NOTE | 2022-06-19 09:16 | NUR ---
Pt ate 100% of breakfast. Compliant with medication. In bathroom with hygiene items. Pt able to wash self with minimal assistance.
[2022-06-19] MEDS: acetaminophen w/codeine (30MG) #3 tablet PO PRN ×3 (10:39→20:47)
--- NOTE | 2022-06-19 10:43 | NUR ---
Pt lying on her bed resting comfortably with eyes closed, rr even and unlabored.
--- NOTE | 2022-06-19 12:33 | NUR ---
Pt sitting in her recliner eating lunch.
--- NOTE | 2022-06-19 14:57 | NUR ---
Pt in her room, staff finished braiding her hair. Pt has required some redirection as she gets impatient having to wait for staff to assist her. Pt gets irritated, but has had no outbursts as of this writing.
--- NOTE | 2022-06-19 15:07 | NUR ---
Pt sitting in recliner quiet.
--- NOTE | 2022-06-19 16:02 | NUR ---
Pt given snack and sitting in her chair.
[2022-06-19] MEDS: quetiapine fumarate ER 300mg tablet PO SCH (16:56)
--- NOTE | 2022-06-19 16:56 | NUR ---
PT IS ENCOURAGED AND EDUCATED TO ELEVATE HER LEGS WHEN SHE IS SITTING. PT CONTINUES TO REFUSE OR WILL ONLY LEAVE LEGS ELEVATED FOR A SHORT TIME.
--- NOTE | 2022-06-19 17:53 | NUR ---
Pt standing in front of her bed yelling "I need a gown!" Pt is frustrated with typewriter operator automatic because I haven't been able to braid hair yet. Pt is directed to her chair, she slowly walks back to it.
--- NOTE | 2022-06-19 18:03 | NUR ---
Pt sitting calmly in chair, video game script writer braided hair. Pt calm waiting for dinner.
[2022-06-19] MEDS: clonazePAM 0.5mg tablet PO PRN ×2 (19:23→20:47)
--- NOTE | 2022-06-19 19:24 | NUR ---
Patient is presenting agitated; PRN Clonazepam provided. She is yelling about a shower; wash cloths and clean green scrubs provided.
[2022-06-19] MEDS: docusate sod 250mg capsule PO SCH (20:46)
[2022-06-19] MEDS: montelukast 10mg tablet PO SCH (20:46)
[2022-06-19] MEDS: fluvoxamine 25 MG tablet PO SCH (20:48)
[2022-06-19] MEDS: polyethylene glycol 3350 17gm powd pack PO SCH (20:50)
--- NOTE | 2022-06-19 21:19 | NUR ---
Patient originally spit out all her medication onto the floor and combative; she was redirected and ended up cooperating a few minutes later. She is now sitting quietly and drinking her coffee. PRN Clonazepam provided for anxiety and Tylenol 3 provided for cheek wound pain.
--- NOTE | 2022-06-19 22:05 | NUR ---
Patient observed sleeping; no apparent distress, even respirations and self repositioning
--- NOTE | 2022-06-20 00:11 | NUR ---
Patient awoke to use the restroom and now eating Jello at bedside.
[2022-06-20] MEDS: acetaminophen 325mg tablet PO PRN (00:37)
[2022-06-20] MEDS: clonazePAM 0.5mg tablet PO PRN ×3 (01:56→20:37)
--- NOTE | 2022-06-20 01:56 | NUR ---
Klonopin 1 mg given due to yelling, pt getting up, trying to grab scrubs out of cabinets, had to be physically escorted back to her bed multiple times, is not redirectable. I currently sitting quietly, will continue to monitor.
--- NOTE | 2022-06-20 02:26 | NUR ---
Patient sleeping in her chair with no apparent distress; even respirations.
--- NOTE | 2022-06-20 04:14 | NUR ---
Patient awoke incontinent of urine; cleaned up and used the restroom prior to returning to her chair. Pleasant and cooperative at this time.
--- NOTE | 2022-06-20 06:05 | NUR ---
Patient awake and pleasant; gag writer braided her hair and she is listening to music.
--- NOTE | 2022-06-20 07:03 | NUR ---
Pt using FWW pacing the floor with her head down mumbling and occasionally yelling about something she wants. She did ask to speak to "BRAULIO Stroud worker."
[2022-06-20] MEDS: nicotine 7mg patch - 24hr TD SCH (07:42)
[2022-06-20] MEDS: multivitamins, therapeutics tablet PO SCH (07:43)
[2022-06-20] MEDS: lactobacillus rhamnosus 10,000 MMU CELLS/CAPSULE PO SCH ×2 (07:43→20:34)
[2022-06-20] MEDS: ziprasidone 20mg capsule PO SCH ×2 (07:43→20:33)
[2022-06-20] MEDS: vortioxetine HBr tablet 5 MG TABLET PO SCH ×2 (07:43→20:34)
[2022-06-20] MEDS: ascorbic acid 500mg tablet PO SCH ×2 (07:44→20:33)
[2022-06-20] MEDS: acetaminophen w/codeine (30MG) #3 tablet PO PRN ×2 (07:44→20:34)
[2022-06-20] MEDS: atorvastatin 10mg tablet PO SCH (07:44)
[2022-06-20] MEDS: ferrous sulfate 325mg tablet PO SCH ×2 (07:44→20:34)
[2022-06-20] MEDS: lamoTRIgine 100mg tablet PO SCH ×2 (07:45→20:33)
[2022-06-20] MEDS: sennosides 8.6mg tablet PO SCH ×2 (07:45→20:34)
[2022-06-20] MEDS: clonazePAM 0.5mg tablet PO SCH ×4 (07:45→17:41)
--- NOTE | 2022-06-20 08:55 | NUR ---
Pt is eating while sitting in a wheelchair with her feet up.
--- NOTE | 2022-06-20 09:15 | NUR ---
Pt up to the BR with FWW. Scrubs changed and pulled changed. Addendum: 06/20/22 at 0954 by AKBAR pull up changed
--- NOTE | 2022-06-20 13:06 | NUR ---
[facility] given for Jessica to provide 24 hour care for the rest of her stay here.
--- NOTE | 2022-06-20 14:51 | NUR ---
Pt has been loud and uncooperative. She has been demandinig yelling to get what she wants. Pt has been told if she stops yelling for 30 minutes she may have some decaf coffee.
[2022-06-20] MEDS: quetiapine fumarate ER 300mg tablet PO SCH (15:30)
--- NOTE | 2022-06-20 17:11 | NUR ---
Pt has been quiet for the past hour. She is calm and cooperative.
--- NOTE | 2022-06-20 20:00 | NUR ---
Patient expressed some irritability about wanting to leave the unit; PRN Clonazepam provided. Patient c/o cheek and leg pain; PRN Tylenol 3 provided. She was compliant with all HS medication.
[2022-06-20] MEDS: docusate sod 250mg capsule PO SCH (20:33)
[2022-06-20] MEDS: montelukast 10mg tablet PO SCH (20:33)
[2022-06-20] MEDS: fluvoxamine 25 MG tablet PO SCH (20:34)
[2022-06-20] MEDS: polyethylene glycol 3350 17gm powd pack PO SCH (20:34)
--- NOTE | 2022-06-21 00:27 | NUR ---
Patient sleeping in her chair. No apparent distress noted; even respirations.
--- NOTE | 2022-06-21 03:00 | NUR ---
Patient up to use the restroom; pleasant and cooperative. Brief was changed at this time. Patient belives she is incontienent at times but no episodes this shift.
--- NOTE | 2022-06-21 06:25 | NUR ---
Patient awake and fussing for a shower and new clothes. Continue to monitor.
--- NOTE | 2022-06-21 08:08 | NUR ---
Patient eating breakfast. No distress observed. Continue to monitor
[2022-06-21] MEDS: lamoTRIgine 100mg tablet PO SCH ×2 (08:33→20:00)
[2022-06-21] MEDS: lactobacillus rhamnosus 10,000 MMU CELLS/CAPSULE PO SCH ×2 (08:33→20:00)
[2022-06-21] MEDS: atorvastatin 10mg tablet PO SCH (08:34)
[2022-06-21] MEDS: sennosides 8.6mg tablet PO SCH ×2 (08:34→20:00)
[2022-06-21] MEDS: clonazePAM 0.5mg tablet PO SCH ×3 (08:34→18:02)
[2022-06-21] MEDS: ferrous sulfate 325mg tablet PO SCH ×2 (08:34→20:00)
[2022-06-21] MEDS: multivitamins, therapeutics tablet PO SCH (08:34)
[2022-06-21] MEDS: nicotine 7mg patch - 24hr TD SCH (08:35)
[2022-06-21] MEDS: vortioxetine HBr tablet 5 MG TABLET PO SCH ×2 (08:35→20:00)
[2022-06-21] MEDS: ziprasidone 20mg capsule PO SCH ×2 (08:35→20:00)
[2022-06-21] MEDS: ascorbic acid 500mg tablet PO SCH ×2 (08:36→20:00)
--- NOTE | 2022-06-21 10:03 | NUR ---
Patient moving about and falling asleep. Continue to monitor.
--- NOTE | 2022-06-21 12:09 | NUR ---
Patient eating breakfast. No distress observed. Continue to monitor.
--- NOTE | 2022-06-21 13:47 | NUR ---
Lj cuellar in [facility] - 06/21/22 at 1348 by RANDALL Tech gave patient a sponge bath and changedf
--- NOTE | 2022-06-21 13:48 | NUR ---
Tech gave pt a sponge bath and changed her into a fresh pair of clothes as well as changed the bedsheets and cleaned up pt table and area.
--- NOTE | 2022-06-21 14:03 | NUR ---
Patient slowly moving around the unit. No distress observed. Continue to monitor.
--- NOTE | 2022-06-21 15:56 | NUR ---
Patient got in a w/c and moving around the unit. No distress observed. Continue to monitor.
--- NOTE | 2022-06-21 17:20 | NUR ---
Patient walking slowly around unit. No distress observed. Continue to monitor.
--- NOTE | 2022-06-21 17:45 | NUR ---
Patient eating dinner. No distress observed. Continue to monitor.
[2022-06-21] MEDS: quetiapine fumarate ER 300mg tablet PO SCH (18:02)
--- NOTE | 2022-06-21 19:52 | NUR ---
Patient sitting in her room. No distress observed. Continue to monitor.
[2022-06-21] MEDS: polyethylene glycol 3350 17gm powd pack PO SCH (20:10)
--- NOTE | 2022-06-21 20:11 | NUR ---
Patient laid down on the bed and went to sleep. RN gave patient warm blankets and covered her up. No distress observed. Continue to monitor.
[2022-06-21] MEDS: fluvoxamine 25 MG tablet PO SCH (21:00)
[2022-06-21] MEDS: docusate sod 250mg capsule PO SCH (21:00)
[2022-06-21] MEDS: montelukast 10mg tablet PO SCH (21:00)
--- NOTE | 2022-06-21 22:26 | NUR ---
Patient continues to sleep. No distress observed. Continue to monitor.
--- NOTE | 2022-06-21 23:59 | NUR ---
Patient sleeping on left side. No distress observed. Continue to monitor.
--- NOTE | 2022-06-22 01:44 | NUR ---
Patient sleeping supine in her bed. No distress observed. Continue to monitor.
--- NOTE | 2022-06-22 03:47 | NUR ---
Patient breathing normally, sleeping supine. No distress observed. Continue to monitor.
--- NOTE | 2022-06-22 06:35 | NUR ---
Lab is here to draw the patient.
--- NOTE | 2022-06-22 07:04 | NUR ---
UA collected and sent, urine cloudy yellow.
--- NOTE | 2022-06-22 07:05 | NUR ---
X-ray tech here to do chest X-ray.
[2022-06-22 07:11] LABS: BASOPHILS % (AUTO) 0.4 % (0-1); EOSINOPHILS # (AUTO) 0.1 X10'3 (0-0.9); EOSINOPHILS % (AUTO) 1.8 % (0-6); HEMOGLOBIN 13.9 g/dl (12.0-16.0); LYMPHOCYTES # (AUTO) 1.2 X10'3 (1.1-4.8); LYMPHOCYTES % (AUTO) 16.7 % (21-51); MEAN CORPUSCULAR HEMOGLOBIN 29.2 PG (27.0-31.0); MEAN CORPUSCULAR HGB CONC 33.1 g/dL (33.0-36.5); MEAN CORPUSCULAR VOLUME 88.5 FL (78-98); MEAN PLATELET VOLUME 8.9 FL (7.4-10.4); MONOCYTES # (AUTO) 0.4 X10'3 (0-0.9); NEUTROPHILS # (AUTO) 5.5 X10'3 (1.8-7.7); NEUTROPHILS % (AUTO) 75.1 % (42-75); PLATELET COUNT 177 X10'3 (140-440); RED BLOOD COUNT 4.74 X10'6 (4.20-5.60); RED CELL DISTRIBUTION WIDTH 13.4 % (11.5-14.5); WHITE BLOOD COUNT 7.3 X10'3 (4.5-11.0)
[2022-06-22 07:39] LABS: ALANINE AMINOTRANSFERASE 25 U/L (12-78); ALBUMIN 3.7 G/DL (3.4-5.0); ALKALINE PHOSPHATASE 63 IU/L (46-116); ANION GAP 8 (8-16); ASPARTATE AMINO TRANSFERASE 19 U/L (10-37); BILIRUBIN,TOTAL 0.3 MG/DL (0.1-1.0); BLOOD UREA NITROGEN 21 MG/DL (7-18); BUN/CREATININE RATIO 31.8 (10.0-20.0); CALCIUM 9.4 MG/DL (8.5-10.1); CHLORIDE 104 MMOL/L (99-107); CREATININE 0.66 MG/DL (0.40-0.90); GLUCOSE 104 MG/DL (70-104); MAGNESIUM 1.9 MG/DL (1.5-2.4); SODIUM 140 MMOL/L (135-145); TOTAL CARBON DIOXIDE 28.3 MMOL/L (24-32); TOTAL PROTEIN 7.5 G/DL (6.4-8.2); eGFR > 90 ML/MIN
[2022-06-22 07:41] LABS: CLARITY,URINE CLOUDY (Clear); COLOR,URINE YELLOW (Yellow); GLUCOSE, URINE NEGATIVE (Neg); KETONES,URINE NEGATIVE (Neg); LEUKOCYTE ESTERASE ,URINE NEGATIVE (Neg); NITRITES, URINE NEGATIVE (Neg); OCCULT BLOOD,URINE NEGATIVE (Neg); PROTEIN,URINE NEGATIVE (Neg); UROBILINOGEN,URINE 0.2 E.U/dL (0.2-1.0)
[2022-06-22 07:42] LABS: UA COLLECTION TYPE CLN CATCH MIDSTREAM
[2022-06-22 08:03] LABS: BACTERIA,URINE FEW /HPF (Neg); MUCUS STRANDS NONE SEEN /LPF (Neg); RBC,URINE NONE SEEN /HPF (0-2); SQUAMOUS EPITHELIAL CELL,UR FEW /LPF (FEW); WBC,URINE 0-4 /HPF (0-4)
[2022-06-22] MEDS: multivitamins, therapeutics tablet PO SCH (08:03)
[2022-06-22] MEDS: sennosides 8.6mg tablet PO SCH ×2 (08:03→20:00)
[2022-06-22] MEDS: lamoTRIgine 100mg tablet PO SCH ×2 (08:03→20:00)
[2022-06-22] MEDS: lactobacillus rhamnosus 10,000 MMU CELLS/CAPSULE PO SCH ×2 (08:04→20:00)
[2022-06-22] MEDS: clonazePAM 0.5mg tablet PO SCH ×3 (08:04→16:44)
[2022-06-22] MEDS: ferrous sulfate 325mg tablet PO SCH ×2 (08:04→20:00)
[2022-06-22] MEDS: ascorbic acid 500mg tablet PO SCH ×2 (08:04→20:00)
[2022-06-22] MEDS: atorvastatin 10mg tablet PO SCH (08:04)
[2022-06-22] MEDS: ziprasidone 20mg capsule PO SCH ×2 (08:04→20:00)
[2022-06-22] MEDS: acetaminophen w/codeine (30MG) #3 tablet PO PRN (08:05)
[2022-06-22] MEDS: vortioxetine HBr tablet 5 MG TABLET PO SCH ×2 (08:05→20:00)
[2022-06-22] MEDS: nicotine 7mg patch - 24hr TD SCH (08:12)
--- NOTE | 2022-06-22 09:04 | NUR ---
Maisha Monroy from [facility] called to ask some questions about the patient. She states that 2 RNs for a provider are coming in today to do an eval "for possibly supporting her." Maisha was asking about behaviors and PRNs. Maisha is requesting an updated med list be faxed to her at [phone].
--- NOTE | 2022-06-22 09:58 | NUR ---
UA negative, labs mostly WNL though lymph % 16.7L. Chest X-ray negative for infiltrate, pleural effusion, or pneumothorax. Atelectasis lower lobes.
--- NOTE | 2022-06-22 11:04 | NUR ---
Pt is in the bathroom cleaning up. Wound care nurse here to see the patient.
--- NOTE | 2022-06-22 11:09 | NUR ---
Preliminary blood culture negative.
--- NOTE | 2022-06-22 11:25 | NUR ---
Wound care nurse took picture of left face lesion and cleansed/dressed it.
--- NOTE | 2022-06-22 11:47 | NUR ---
Maisha Monroy is here with 2 nurses from a snf here in [facility] [address] to interview the patient. Addendum: 06/22/22 at 1148 by LINNEA Nurses visiting are from [facility].
--- NOTE | 2022-06-22 11:54 | NUR ---
Per Maisha [facility] does not have beds available in their group homes currently, however, they do offer supportive services including 24 hour care with a possibility of two 24 hour caregivers in a non intermediate setting like an apartment.
--- NOTE | 2022-06-22 12:32 | NUR ---
Pt's visitors left.
--- NOTE | 2022-06-22 14:22 | NUR ---
Patrick Lala brought in a box of pull-up briefs for the patient.
--- NOTE | 2022-06-22 14:23 | NUR ---
Pt is asking for a mask. When tech asked why she needed a mask. Pt replied, "I'm contagious." Tech asked pt why she was contagious. Pt replied, "syphilis."
--- NOTE | 2022-06-22 16:21 | NUR ---
Pt is sitting in her gisela-chair napping.
[2022-06-22] MEDS: quetiapine fumarate ER 300mg tablet PO SCH (16:44)
--- NOTE | 2022-06-22 17:50 | NUR ---
pt cried while tech took pt vitals
--- NOTE | 2022-06-22 17:58 | NUR ---
Pt is sitting calmly and quietly in her w/c while waiting for dinner.
--- NOTE | 2022-06-22 18:35 | NUR ---
Patient is sitting on her bed eating dinner. She has taken off her top and is wearing a sports bra. In view from nurses station.
--- NOTE | 2022-06-22 19:04 | NUR ---
Patient is still eating at bedside. She is quiet and cooperative. She was given a clean gown.
--- NOTE | 2022-06-22 20:30 | NUR ---
This patient is sitting on her bed. No distress. She refuses her medications at this time. In direct view from the nurses station.
[2022-06-22] MEDS: polyethylene glycol 3350 17gm powd pack PO SCH (21:00)
[2022-06-22] MEDS: docusate sod 250mg capsule PO SCH (21:00)
[2022-06-22] MEDS: fluvoxamine 25 MG tablet PO SCH (21:00)
[2022-06-22] MEDS: montelukast 10mg tablet PO SCH (21:00)
--- NOTE | 2022-06-22 21:05 | NUR ---
The patient is starting to become rude at times. She requires redirection back to bed. She still refuses night medications.
--- NOTE | 2022-06-22 21:50 | NUR ---
This patient expressed anger at staff for telling her it was 9 pm. The tech wheeled the patient outside to show her the night view. On return the patient is still stuborn, saying it it 0930 in the am. The patient is somewhat quieter now.
--- NOTE | 2022-06-22 23:30 | NUR ---
Patient is sitting in her chair, awake and grumbling.
--- NOTE | 2022-06-23 01:55 | NUR ---
Lab report on blood culture right arm: Gram Positive with clusters. Aerobic bottle. This magnetic tape typewriter operator advised Dr. Morales. Lee. Orders taken for Levoquin 500 mg PO QD X5 Days.
[2022-06-23] MEDS: levoFLOXACIN 250mg tablet PO SCH (03:00)
--- NOTE | 2022-06-23 03:21 | NUR ---
With much discussion the patient did take day 1 of Levoquin 500 mg PO. She remains awake, she is cooperative and listening to her headphones at this time.
--- NOTE | 2022-06-23 04:52 | NUR ---
Patient remains awake and she is cooperative at this moment.
--- NOTE | 2022-06-23 06:30 | NUR ---
Received pt. sitting up in her wheelchair at the beginning of the shift. She appeared fatigued, and per report from shift mgr pt. had not slept much last night. Pt. c/o generalized pain and PRN pain medication was administered, will continue to monitor closely. Addendum: 06/23/22 at 0724 by WILY Pt. was compliant with taking all her ordered medications in yogurt.
[2022-06-23] MEDS: lactobacillus rhamnosus 10,000 MMU CELLS/CAPSULE PO SCH ×2 (07:00→20:57)
[2022-06-23] MEDS: lamoTRIgine 100mg tablet PO SCH ×2 (07:01→21:04)
[2022-06-23] MEDS: ziprasidone 20mg capsule PO SCH ×2 (07:01→20:57)
[2022-06-23] MEDS: atorvastatin 10mg tablet PO SCH (07:01)
[2022-06-23] MEDS: sennosides 8.6mg tablet PO SCH ×2 (07:01→20:58)
[2022-06-23] MEDS: ferrous sulfate 325mg tablet PO SCH ×2 (07:01→20:57)
[2022-06-23] MEDS: clonazePAM 0.5mg tablet PO SCH ×3 (07:01→16:00)
[2022-06-23] MEDS: nicotine 7mg patch - 24hr TD SCH (07:02)
[2022-06-23] MEDS: ascorbic acid 500mg tablet PO SCH ×2 (07:02→20:57)
[2022-06-23] MEDS: multivitamins, therapeutics tablet PO SCH (07:02)
[2022-06-23] MEDS: vortioxetine HBr tablet 5 MG TABLET PO SCH ×2 (07:02→20:59)
[2022-06-23] MEDS: acetaminophen w/codeine (30MG) #3 tablet PO PRN ×2 (07:03→20:58)
--- NOTE | 2022-06-23 07:40 | NUR ---
LATE ENTRY PLATE FILLER DOCUMENTATION: Agree with [facility] PLATE FILLER documentation.
--- NOTE | 2022-06-23 08:15 | NUR ---
Ordered wound care was completed to pt's left cheek. The old dressing was removed, and wound presnets with moderate serosanguineous exudate. Area was cleaned and a new dressing was applied, pt. tolerated this procedure well. Pt's bilateral lower extremities continue to be firm with edematous, reddened skin. The skin at these areas is dry and lotion was applied. Pt. continues to be encouraged to elevate her legs in the reclining chair available to her in her room, however she refuses. This global technical writer will continue to provide encouragement to pt.
--- NOTE | 2022-06-23 10:56 | NUR ---
Pt. was napping in her wheel chair and appears to be fighting sleep, she refuses to lay down in bed or sit in her recliner chair when encouraged by staff. Pt. awoke agitated and began yelling out, "I want to go home!" She wheeled towards the front exit, but was able to be redirected by staff. Pt. was provided with a snack upon request and her scheduled Clonazepam was administered. Will continue to monitor closely.
--- NOTE | 2022-06-23 12:30 | NUR ---
Pt. is sitting up eating lunch at this time.
--- NOTE | 2022-06-23 14:39 | NUR ---
Pt. is sitting up in her w/c at this time, she continues to make multiple requests including to shower.
[2022-06-23] MEDS: quetiapine fumarate ER 300mg tablet PO SCH (15:52)
--- NOTE | 2022-06-23 16:27 | NUR ---
Pt. is sitting in the reclining chair in her room at this time.
--- NOTE | 2022-06-23 17:57 | NUR ---
Pt. attempted to go out the front curtain exit, she was able to be redircted back to her room by staff.
--- NOTE | 2022-06-23 18:45 | NUR ---
Per director of ER, pt. will have an appointment on Sunday to persue conservatorship.
--- NOTE | 2022-06-23 19:23 | NUR ---
Patient sitting at bedside, she snacks. No distress noted.
--- NOTE | 2022-06-23 20:21 | NUR ---
Patient is awake, she sits at bedside. Patient exhibits mild labile behavior.
[2022-06-23] MEDS: montelukast 10mg tablet PO SCH (20:57)
[2022-06-23] MEDS: docusate sod 250mg capsule PO SCH (20:58)
[2022-06-23] MEDS: polyethylene glycol 3350 17gm powd pack PO SCH (21:00)
[2022-06-23] MEDS: fluvoxamine 25 MG tablet PO SCH (21:04)
--- NOTE | 2022-06-23 21:15 | NUR ---
Patient was compliant with taking medications, save for Mirilax which she refused. A Tylenol #3 was given also for patients back pain. Patient sits in her wheelchair. She believes it is am, she occasionally grumbles. She is being redirected many times.
--- NOTE | 2022-06-23 22:23 | NUR ---
Patient is now sleeping quietly in her bed. No distress.
--- NOTE | 2022-06-24 00:06 | NUR ---
Patient is sleeping supine in bed. No distress.
--- NOTE | 2022-06-24 01:13 | NUR ---
Patient is still sleeping quietly, no distress.
--- NOTE | 2022-06-24 02:40 | NUR ---
Patient awoke, wanted to use wheelchair to go to bathroom instead of her walker. Patient also wanted a change of clothes. Patient is in the bathroom now changing her clothes.
--- NOTE | 2022-06-24 06:05 | NUR ---
Patient sleeps quietly.
--- NOTE | 2022-06-24 07:00 | NUR ---
Patient up in the bathroom cleaning herself. She is being appropriate at this time.
--- NOTE | 2022-06-24 07:24 | NUR ---
Patient is cleaned up and back to her bed area.
[2022-06-24] MEDS: nicotine 7mg patch - 24hr TD SCH (08:00)
[2022-06-24] MEDS: ascorbic acid 500mg tablet PO SCH ×2 (08:00→20:08)
[2022-06-24] MEDS: levoFLOXACIN 250mg tablet PO SCH (08:13)
[2022-06-24] MEDS: lamoTRIgine 100mg tablet PO SCH ×2 (08:13→20:09)
[2022-06-24] MEDS: ziprasidone 20mg capsule PO SCH ×2 (08:13→20:09)
[2022-06-24] MEDS: atorvastatin 10mg tablet PO SCH (08:13)
[2022-06-24] MEDS: clonazePAM 0.5mg tablet PO SCH ×3 (08:13→16:01)
[2022-06-24] MEDS: lactobacillus rhamnosus 10,000 MMU CELLS/CAPSULE PO SCH ×2 (08:13→20:09)
[2022-06-24] MEDS: sennosides 8.6mg tablet PO SCH ×2 (08:14→20:09)
[2022-06-24] MEDS: multivitamins, therapeutics tablet PO SCH (08:14)
[2022-06-24] MEDS: vortioxetine HBr tablet 5 MG TABLET PO SCH ×2 (08:14→20:09)
[2022-06-24] MEDS: ferrous sulfate 325mg tablet PO SCH ×2 (08:14→20:09)
--- NOTE | 2022-06-24 08:49 | NUR ---
Patient has eaten breakfast, and is sitting quietly in her wheelchair.
--- NOTE | 2022-06-24 11:03 | NUR ---
Patient sitting in her wheelchair by her bed.
--- NOTE | 2022-06-24 14:08 | NUR ---
Patient refused most of her lunch tray. Now she's screaming that she's hungry.
[2022-06-24] MEDS ORDERED: LORazepam 2 mg/ml vial IV ONE (15:00)
[2022-06-24] MEDS ORDERED: haloperidol lactate 5mg/ml inj IM ONE ×2 (15:00→15:30)
--- NOTE | 2022-06-24 15:14 | NUR ---
Patient decided to start screaming at the top of her lungs for coffee, juice, snacks. She continued for 30 minutes. Orders received from , Ativan 1mg IM, Haldol 5mg IM for agitation.
[2022-06-24] MEDS ORDERED: haloperidol lactate 5mg/ml inj ONE (15:29)
[2022-06-24] MEDS: quetiapine fumarate ER 300mg tablet PO SCH (15:58)
[2022-06-24] MEDS ORDERED: LORazepam 2 mg/ml vial ONE (16:38)
--- NOTE | 2022-06-24 17:08 | NUR ---
Medications were ineffective. Patient still screaming.
--- NOTE | 2022-06-24 17:10 | NUR ---
New orders received for Ativan 2mg IM, Haldol 5mg IM.
--- NOTE | 2022-06-24 17:29 | NUR ---
Medications still ineffective, although patient is screaming less loudly.
--- NOTE | 2022-06-24 18:46 | NUR ---
Patient calm and cooperative at this time. She's getting her face washed and a new gown put on. Will continue to monitor.
--- NOTE | 2022-06-24 19:13 | NUR ---
Patient all cleaned up and hair washed with new clean gown. Pleasant/calm at this time up walking the unit.
[2022-06-24] MEDS: acetaminophen w/codeine (30MG) #3 tablet PO PRN (20:08)
[2022-06-24] MEDS: fluvoxamine 25 MG tablet PO SCH (20:09)
[2022-06-24] MEDS: docusate sod 250mg capsule PO SCH (20:09)
[2022-06-24] MEDS: montelukast 10mg tablet PO SCH (20:09)
[2022-06-24] MEDS: polyethylene glycol 3350 17gm powd pack PO SCH (20:10)
[2022-06-24] MEDS: clonazePAM 0.5mg tablet PO PRN (20:10)
--- NOTE | 2022-06-24 20:34 | NUR ---
Performed med pass. Patient compliant with meds. Told her that she'd get her hair braided and a treat after she took her meds. Used the bathroom and agreed to elevate legs on pillows due to swollen legs. Noted purple blanchable skin where her toes meet her feet bilaterally. Marked with a black marker to track it. Will make MD aware.
--- NOTE | 2022-06-24 23:14 | NUR ---
Patient sleeping comfortably. RR even/nonlabored. No s/sx of distress noted. Will continue to monitor.
--- NOTE | 2022-06-25 00:53 | NUR ---
Patient sleeping comfortably. Appears to be in no distress. Will continue to monitor.
--- NOTE | 2022-06-25 03:05 | NUR ---
Sleeping comfortably, RR even/nonlabored, no s/sx of distress noted. Will cont. to monitor.
--- NOTE | 2022-06-25 04:10 | NUR ---
Patient awoke from several hours of sleep. She had incontinent episode while asleep. Noted to be slow moving and groggy. RN assisted her in bathroom getting cleaned up and clothes changed while tech cleaned her bed and applied new sheets. Got her back into bed and cleaned under panus, and applied Nystatin powder. Placed pillow case in panus fold. Also0 first time re-assessing feet since receiving orders from MD last night since she has been asleep. Palpated feet then used doppler to locate pulses. Pulses strong via doppler. Marked pulses. Waiting for MD to assess her.
--- NOTE | 2022-06-25 04:59 | NUR ---
Patient sleeping, Dr. Morales was just here to see her feet. Noted good capillary refill to purple skin and nailbeds. <3 seconds. Palpated very faint dorsalis pedis and posterior tibial pulses. Dopplered pulse and were found quickly in locations palpated. Gave orders to continue to monitor Qshift and PRN.
--- NOTE | 2022-06-25 06:27 | NUR ---
Patient sleeping quietly in bed. No S/S of distress.
[2022-06-25] MEDS: ascorbic acid 500mg tablet PO SCH ×2 (08:00→19:48)
--- NOTE | 2022-06-25 09:00 | NUR ---
Patient ate her breakfast, went to the bathroom, and drank her morning coffee. Patient has been in a reasonably good mood this morning.
[2022-06-25] MEDS: lamoTRIgine 100mg tablet PO SCH ×2 (09:22→19:47)
[2022-06-25] MEDS: levoFLOXACIN 250mg tablet PO SCH (09:22)
[2022-06-25] MEDS: vortioxetine HBr tablet 5 MG TABLET PO SCH ×2 (09:22→19:46)
[2022-06-25] MEDS: ziprasidone 20mg capsule PO SCH ×2 (09:22→19:47)
[2022-06-25] MEDS: ferrous sulfate 325mg tablet PO SCH ×2 (09:23→19:47)
[2022-06-25] MEDS: lactobacillus rhamnosus 10,000 MMU CELLS/CAPSULE PO SCH ×2 (09:23→19:47)
[2022-06-25] MEDS: clonazePAM 0.5mg tablet PO SCH ×3 (09:23→16:24)
[2022-06-25] MEDS: sennosides 8.6mg tablet PO SCH ×2 (09:23→19:47)
[2022-06-25] MEDS: multivitamins, therapeutics tablet PO SCH (09:23)
[2022-06-25] MEDS: atorvastatin 10mg tablet PO SCH (09:24)
--- NOTE | 2022-06-25 12:16 | NUR ---
Patient is eating lunch.
[2022-06-25] MEDS: nicotine 7mg patch - 24hr TD SCH (12:29)
[2022-06-25] MEDS: acetaminophen w/codeine (30MG) #3 tablet PO PRN ×2 (13:53→21:28)
[2022-06-25] MEDS: quetiapine fumarate ER 300mg tablet PO SCH (16:24)
--- NOTE | 2022-06-25 17:43 | NUR ---
Patient is sitting up in her chair eating dinner, watching t.v. No complaints at this time.
--- NOTE | 2022-06-25 18:30 | NUR ---
Received patient walking the unit, no distress noted. Will continue to monitor.
[2022-06-25] MEDS: fluvoxamine 25 MG tablet PO SCH (19:46)
[2022-06-25] MEDS: docusate sod 250mg capsule PO SCH (19:47)
[2022-06-25] MEDS: montelukast 10mg tablet PO SCH (19:47)
[2022-06-25] MEDS: polyethylene glycol 3350 17gm powd pack PO SCH (19:48)
[2022-06-25] MEDS: clonazePAM 0.5mg tablet PO PRN (19:51)
--- NOTE | 2022-06-25 20:30 | NUR ---
Patient sitting up in recliner with legs elevated. Tech at bedside playing her music. Evaluated patient's BLE. Dopplered pedal and tibial pulses. No changes in skin color. No anxiety noted at this time and was compliant with med pass and in return gave her a snacks and a marshmellow peep. Will continue to monitor.
--- NOTE | 2022-06-25 22:10 | NUR ---
Patient fell asleep in chair. Assisted to bed and is now resting comfortably in bed on left side. No anxiety or agitation noted. Tucked in with warm blankets. No pain or distress noted. Tylenol #3 successful. Will continue to monitor.
--- NOTE | 2022-06-26 00:37 | NUR ---
Patient continues to be sleeping. No s/sx of distress noted. Resting peacefully in bed. RR even/nonlabored. Will continue to monitor.
--- NOTE | 2022-06-26 02:08 | NUR ---
Patient is still sleeping. She has awoke briefly to turn over in bed and remove blankets. Continues to be resting with eyes closed in bed since 2209. No s/sx of distress. RR even/nonlabored. Will continue to monitor.
--- NOTE | 2022-06-26 04:23 | NUR ---
Patient awoke 1 hour ago. Got up to BR. Currently sifting through drawer. Perseverating on asking for a pants change. Checked patient and she was dry. Redirected patient. Will continue to monitor.
--- NOTE | 2022-06-26 05:04 | NUR ---
Patient awake and watching TV. No s/sx of distress noted. Calm/cooperative and asking for coffee. Will continue to monitor.
--- NOTE | 2022-06-26 06:32 | NUR ---
Sitter arrived to bedside. Care transferred to day RN. Patient is pleasant and calm.
--- NOTE | 2022-06-26 07:25 | NUR ---
Patient has a sitter from [facility].
--- NOTE | 2022-06-26 07:30 | NUR ---
RN took patient, along with the new sitter, to the shower. Patient needs assistance in setup, undressing and getting dressed. Patient did well. Calm and in no distress. Continue to monitor.
--- NOTE | 2022-06-26 08:11 | NUR ---
Patient eating breakfast. No distress observed. Continue to monitor.
[2022-06-26] MEDS: levoFLOXACIN 250mg tablet PO SCH (08:22)
[2022-06-26] MEDS: lamoTRIgine 100mg tablet PO SCH ×2 (08:22→20:45)
[2022-06-26] MEDS: clonazePAM 0.5mg tablet PO SCH ×3 (08:22→16:15)
[2022-06-26] MEDS: ziprasidone 20mg capsule PO SCH ×2 (08:22→20:44)
[2022-06-26] MEDS: vortioxetine HBr tablet 5 MG TABLET PO SCH ×2 (08:22→20:44)
[2022-06-26] MEDS: sennosides 8.6mg tablet PO SCH ×2 (08:22→20:45)
[2022-06-26] MEDS: ascorbic acid 500mg tablet PO SCH ×2 (08:22→20:45)
[2022-06-26] MEDS: lactobacillus rhamnosus 10,000 MMU CELLS/CAPSULE PO SCH ×2 (08:22→20:45)
[2022-06-26] MEDS: atorvastatin 10mg tablet PO SCH (08:23)
[2022-06-26] MEDS: ferrous sulfate 325mg tablet PO SCH ×2 (08:23→20:45)
[2022-06-26] MEDS: multivitamins, therapeutics tablet PO SCH (08:23)
[2022-06-26] MEDS: nicotine 7mg patch - 24hr TD SCH (08:23)
--- NOTE | 2022-06-26 10:05 | NUR ---
Patient walking around unit using her walker. No distress observed. Continue to monitor.
--- NOTE | 2022-06-26 12:12 | NUR ---
Patient eating lunch. No distress observed. Continue to monitor.
--- NOTE | 2022-06-26 14:00 | NUR ---
Neville carlson arrived at 1400. Rosa is sitting in her room. No distress observed. Continue to monitor.
[2022-06-26] MEDS: acetaminophen w/codeine (30MG) #3 tablet PO PRN (14:46)
--- NOTE | 2022-06-26 15:30 | NUR ---
Patient telling RN that she hasn't had a shower in 7 days. RN reminded patient that RN and sitter took patient to the shower this morning. RN also reminded her that RN washed the bra she was wearing because it was so dirty. RN dried the bra and gave it back to the patient a few hours later. Patient still insists that she has not taken a shower in 7 days. RN advised patient that she is done with this conversation. Continue to monitor.
[2022-06-26] MEDS: quetiapine fumarate ER 300mg tablet PO SCH (16:15)
--- NOTE | 2022-06-26 18:00 | NUR ---
Received patient from Day shift RN, sitter sitting by patient.
--- NOTE | 2022-06-26 20:00 | NUR ---
Pt eat her dinner then changed into a clean gown, sitter at bedside. RR even and unabored and pt. in NAD.
[2022-06-26] MEDS: fluvoxamine 25 MG tablet PO SCH (20:44)
[2022-06-26] MEDS: polyethylene glycol 3350 17gm powd pack PO SCH (20:45)
[2022-06-26] MEDS: docusate sod 250mg capsule PO SCH (20:45)
[2022-06-26] MEDS: montelukast 10mg tablet PO SCH (20:45)
[2022-06-26] MEDS: clonazePAM 0.5mg tablet PO PRN (21:54)
--- NOTE | 2022-06-26 22:22 | NUR ---
Pt in room 23, watching TV. Pt in no apperant distress, RR even and unlaborded.
--- NOTE | 2022-06-26 23:39 | NUR ---
Pt pulled off her facial dressing. RN cleansed wound with normal saline and placed Xeroform onto wound and covered with bandages. Pt tolerated well. In chair watching TV.
--- NOTE | 2022-06-27 02:18 | NUR ---
Pt resting in her chair. Bandage intact on her left cheek. No s/sx of distress.
--- NOTE | 2022-06-27 04:02 | NUR ---
Frequent redirection needed tonight. Pt tore off dressing again. Pt given something to eat.
--- NOTE | 2022-06-27 06:20 | NUR ---
Patient has not slept and screaming for food. RN to get patient a sandwich. Continue to monitor.
--- NOTE | 2022-06-27 07:10 | NUR ---
Patient went into the shower and washed up. RN gave patient clean clothes. Patient needs assistance in setting up and putting on her bra and clothes. No distress observed at this time. Continue to monitor.
[2022-06-27] MEDS: multivitamins, therapeutics tablet PO SCH (08:01)
[2022-06-27] MEDS: ziprasidone 20mg capsule PO SCH ×2 (08:01→20:39)
[2022-06-27] MEDS: sennosides 8.6mg tablet PO SCH ×2 (08:01→20:40)
[2022-06-27] MEDS: atorvastatin 10mg tablet PO SCH (08:01)
[2022-06-27] MEDS: vortioxetine HBr tablet 5 MG TABLET PO SCH ×2 (08:02→20:40)
[2022-06-27] MEDS: clonazePAM 0.5mg tablet PO SCH ×3 (08:02→16:48)
[2022-06-27] MEDS: lactobacillus rhamnosus 10,000 MMU CELLS/CAPSULE PO SCH ×2 (08:02→20:37)
[2022-06-27] MEDS: lamoTRIgine 100mg tablet PO SCH ×2 (08:02→20:39)
[2022-06-27] MEDS: nicotine 7mg patch - 24hr TD SCH (08:02)
[2022-06-27] MEDS: ascorbic acid 500mg tablet PO SCH ×2 (08:02→20:40)
[2022-06-27] MEDS: ferrous sulfate 325mg tablet PO SCH ×2 (08:02→20:38)
--- NOTE | 2022-06-27 08:20 | NUR ---
Patient eating breakfast. No distress observed. Continue to monitor.
--- NOTE | 2022-06-27 10:43 | NUR ---
Patient chatting with one on one sitter. No distress observed. Continue to monitor.
--- NOTE | 2022-06-27 12:19 | NUR ---
Patient eating lunch. No distress observed. Continue to monitor.
--- NOTE | 2022-06-27 14:16 | NUR ---
Patient in BR changing her clothes. No distress observed. Patient slept for about 2 hours today without sleeping at all last night. Continue to monitor.
--- NOTE | 2022-06-27 15:37 | NUR ---
Patient walking around her room with a hairbrush in her hand. Patient also has a new mask. No distress observed. Continue to monitor. (Sitter at bedside).
[2022-06-27] MEDS: quetiapine fumarate ER 300mg tablet PO SCH (16:47)
--- NOTE | 2022-06-27 17:23 | NUR ---
Patient eating dinner. No distress observed. Continue to monitor.
[2022-06-27] MEDS: docusate sod 250mg capsule PO SCH (20:42)
[2022-06-27] MEDS: fluvoxamine 25 MG tablet PO SCH (20:42)
[2022-06-27] MEDS: polyethylene glycol 3350 17gm powd pack PO SCH (20:43)
[2022-06-27] MEDS: montelukast 10mg tablet PO SCH (20:43)
--- NOTE | 2022-06-27 22:00 | NUR ---
Pt arrived from EDOF on bed asleep. Pt appears to be resting comfortably no s/s of distress. RR 14. Pt has [facility] employee sitting at bedside.
--- NOTE | 2022-06-28 01:11 | NUR ---
Pt is laying on her back asleep RR even and unlabored no s/s distress.
--- NOTE | 2022-06-28 02:12 | NUR ---
Pt is awake and up to use the restroom. Pt wants to be referred to as "Vira Stallworth". Pt is requesting to have someone push her wheel chair to the bathroom and help her with changing brief. Pt is accomodated. [facility] sitter is assisting with care.
[2022-06-28] MEDS: clonazePAM 0.5mg tablet PO PRN (02:59)
[2022-06-28] MEDS: acetaminophen w/codeine (30MG) #3 tablet PO PRN ×2 (03:00→17:52)
--- NOTE | 2022-06-28 03:01 | NUR ---
Pt is requesting something for pain and getting agitated with sitter about her light. Pts light was turned on and she is provided w prn klonopin and tylenol for pain.
--- NOTE | 2022-06-28 03:52 | NUR ---
Pt requested a gown change and requested to have her dressing changed. Pt was picking her face and was provided with education and asked to stop. Pt replied "I know I need to stop but it bothers me." Pt stopped picking. Pts dressing on her face and nose were both changed. Pt fell asleep while having her dressings changed. Pt is asleep in her chair and made comfortable. RR16
--- NOTE | 2022-06-28 05:13 | NUR ---
Pt is asleep in her chair, feet elevated, no s/s distress. RR 18
--- NOTE | 2022-06-28 06:31 | NUR ---
Patient just back from the BR and changed her brief. Patient requiring a little more assistance this morning. Sitter at bedside. Continue to monitor.
[2022-06-28] MEDS: multivitamins, therapeutics tablet PO SCH (08:06)
[2022-06-28] MEDS: clonazePAM 0.5mg tablet PO SCH ×3 (08:07→17:53)
[2022-06-28] MEDS: ascorbic acid 500mg tablet PO SCH ×2 (08:07→20:00)
[2022-06-28] MEDS: ziprasidone 20mg capsule PO SCH ×2 (08:07→20:32)
[2022-06-28] MEDS: atorvastatin 10mg tablet PO SCH (08:07)
[2022-06-28] MEDS: sennosides 8.6mg tablet PO SCH ×2 (08:07→20:32)
[2022-06-28] MEDS: ferrous sulfate 325mg tablet PO SCH ×2 (08:07→20:32)
[2022-06-28] MEDS: lactobacillus rhamnosus 10,000 MMU CELLS/CAPSULE PO SCH ×2 (08:07→20:32)
[2022-06-28] MEDS: acetaminophen 325mg tablet PO PRN (08:10)
[2022-06-28] MEDS: nicotine 7mg patch - 24hr TD SCH (08:10)
--- NOTE | 2022-06-28 08:17 | NUR ---
Patient eating breakfast. No distress observed. Continue to monitor.
[2022-06-28] MEDS: vortioxetine HBr tablet 5 MG TABLET PO SCH ×2 (08:28→20:32)
[2022-06-28] MEDS: lamoTRIgine 100mg tablet PO SCH ×2 (08:28→20:32)
--- NOTE | 2022-06-28 10:17 | NUR ---
Patient is quiet and slower today. Continue to monitor.
--- NOTE | 2022-06-28 12:10 | NUR ---
Patient has been falling asleep while eating. Patient had to be awoken for lunch. Continue to monitor.
--- NOTE | 2022-06-28 13:02 | NUR ---
Patient sleeping in recliner only ate a small amount of her lunch. Continue to monitor.
--- NOTE | 2022-06-28 14:58 | NUR ---
Patient is up and down and sometimes will fall asleep standing up. RN held her noon Clonazepam. Continue to monitor.
--- NOTE | 2022-06-28 17:10 | NUR ---
Patient sleeping in her recliner. No distress observed. Continue to monitor.
[2022-06-28] MEDS: quetiapine fumarate ER 300mg tablet PO SCH (17:52)
--- NOTE | 2022-06-28 18:17 | NUR ---
Patient eating dinner. No distress observed. Continue to monitor.
--- NOTE | 2022-06-28 20:11 | NUR ---
Patient sleeping in her recliner. No distress observed. Continue to monitor.
[2022-06-28] MEDS: docusate sod 250mg capsule PO SCH (20:31)
[2022-06-28] MEDS: montelukast 10mg tablet PO SCH (20:32)
[2022-06-28] MEDS: fluvoxamine 25 MG tablet PO SCH (20:32)
[2022-06-28] MEDS: polyethylene glycol 3350 17gm powd pack PO SCH (20:33)
--- NOTE | 2022-06-28 22:34 | NUR ---
Patient sleeping in her recliner. Patient has her blanket on her. No distress observed. Continue to monitor.
--- NOTE | 2022-06-28 23:27 | NUR ---
CONSERVATORSHIP INTERVIEW MONDAY 07/03 AT 1330 AT [facility]. DR. ERIC TERRAZAS.
--- NOTE | 2022-06-29 01:34 | NUR ---
Patient continues to sleep in her recliner. No distress observed. Continue to monitor.
--- NOTE | 2022-06-29 01:53 | NUR ---
Patient awake and sitting in her recliner. Patient asking for coffee. RN put a new pot on. Continue to monitor.
--- NOTE | 2022-06-29 03:41 | NUR ---
Patient up and asking for coffee. No distress observed. Continue to monitor.
[2022-06-29] MEDS: acetaminophen w/codeine (30MG) #3 tablet PO PRN ×3 (03:54→20:02)
--- NOTE | 2022-06-29 05:33 | NUR ---
Patient up and coming out of her room using her walker No distress observed. Continue to monitor.
--- NOTE | 2022-06-29 06:30 | NUR ---
Pt is awake, hovering at the nurse's station demanding multiple things. Difficult to redirect.
[2022-06-29] MEDS: ascorbic acid 500mg tablet PO SCH ×2 (07:17→20:02)
[2022-06-29] MEDS: ferrous sulfate 325mg tablet PO SCH ×2 (07:17→20:02)
[2022-06-29] MEDS: ziprasidone 20mg capsule PO SCH ×2 (07:17→20:01)
[2022-06-29] MEDS: lactobacillus rhamnosus 10,000 MMU CELLS/CAPSULE PO SCH ×2 (07:17→20:02)
[2022-06-29] MEDS: vortioxetine HBr tablet 5 MG TABLET PO SCH ×2 (07:17→20:01)
[2022-06-29] MEDS: lamoTRIgine 100mg tablet PO SCH ×2 (07:18→20:02)
[2022-06-29] MEDS: acetaminophen 325mg tablet PO PRN (07:18)
[2022-06-29] MEDS: atorvastatin 10mg tablet PO SCH (07:18)
[2022-06-29] MEDS: sennosides 8.6mg tablet PO SCH ×2 (07:18→20:02)
[2022-06-29] MEDS: clonazePAM 0.5mg tablet PO SCH ×3 (07:18→16:24)
[2022-06-29] MEDS: multivitamins, therapeutics tablet PO SCH (07:18)
--- NOTE | 2022-06-29 07:18 | NUR ---
Pt c/o 12/03 leg pain, she was given PRN Tylenol 975 mg. Pt was provided with decaf coffee and some crackers. Pt removed her dressing left cheek and it was replaced.
[2022-06-29] MEDS: nicotine 7mg patch - 24hr TD SCH (07:24)
--- NOTE | 2022-06-29 08:00 | NUR ---
Pt's sitter has arrived.
--- NOTE | 2022-06-29 08:06 | NUR ---
Lj cuellar in ED - 06/29/22 at 0807 by LINNEA Pt c/o 12/03 leg pain, gave PRN Tylenol 975 mg.
--- NOTE | 2022-06-29 10:00 | NUR ---
Pt declined to be taken for a shower. Pt performed a sponge bath in the bathroom and changed into clean scrubs. Pt requested a new mask stating her other one got wet. Pt states, "I drool like a puppy dog."
--- NOTE | 2022-06-29 12:00 | NUR ---
Pt is napping in her gisela-chair.
--- NOTE | 2022-06-29 13:42 | NUR ---
Wound care is here to see the patient.
--- NOTE | 2022-06-29 13:49 | NUR ---
Lesion cleansed and dressing changed by wound care nurse.
[2022-06-29] MEDS: clonazePAM 0.5mg tablet PO PRN (14:04)
--- NOTE | 2022-06-29 14:05 | NUR ---
Pt grabbed sitter's sweatshirt that had been placed over a chair and put it on. Pt would not take it off. Pt kept repeating, "Meghan gave it to me!" The sitter eventually managed to get her sweatshirt back but it took some effort/encouragement. Pt is anxious, irritable, and mildly agitated. Administered PRN Klonopin 1 mg PO.
--- NOTE | 2022-06-29 14:53 | NUR ---
Pt is napping in her gerichair with her legs elevated.
[2022-06-29] MEDS: quetiapine fumarate ER 300mg tablet PO SCH (15:11)
--- NOTE | 2022-06-29 15:42 | NUR ---
BI[employer] PRODUCTION TECHNICIAN documentation: Agree with [facility] [employer]FU[employer] PRODUCTION TECHNICIAN documentation.
--- NOTE | 2022-06-29 16:37 | NUR ---
Pt asked for a snack and was provided a sandwich.
--- NOTE | 2022-06-29 18:59 | NUR ---
Patient is awake and well oriented. She has a sitter at bedside until 2000 hours. Patient ate a full dinner. She has a clean wound dressing on her left face that was changed this am. Patient demonstrates a cooperative disposition at this time.
[2022-06-29] MEDS: docusate sod 250mg capsule PO SCH (20:02)
[2022-06-29] MEDS: fluvoxamine 25 MG tablet PO SCH (20:05)
[2022-06-29] MEDS: montelukast 10mg tablet PO SCH (20:05)
--- NOTE | 2022-06-29 20:30 | NUR ---
Patient was compliant with night medications. She was given Tylenol #3 for generalized pain. Patient does require some redirection. The personal sitter that was provided went home at 2000 hours.
[2022-06-29] MEDS: polyethylene glycol 3350 17gm powd pack PO SCH (21:00)
--- NOTE | 2022-06-29 22:28 | NUR ---
Patient is sleeping in her chair quietly. Good color, regular resp. No distress noted. In view from nurses station.
--- NOTE | 2022-06-29 23:03 | NUR ---
Patient continues to sleep quietly in her chair.
--- NOTE | 2022-06-30 00:37 | NUR ---
Patient continues to sleep quietly in her chair.
--- NOTE | 2022-06-30 01:49 | NUR ---
Patient is awake and cooperative. She ambulated to the bathroom, she was given a new brief and gown.
[2022-06-30] MEDS: clonazePAM 0.5mg tablet PO PRN ×2 (03:11→21:01)
[2022-06-30] MEDS: acetaminophen w/codeine (30MG) #3 tablet PO PRN ×2 (03:11→12:58)
--- NOTE | 2022-06-30 03:24 | NUR ---
Patient is awake, she exhibits agitation and complains of total body pain. Klonopin and T3 were given. Per Dr. Ritesh gomez to give the Tylenol with codeine one hour early.
--- NOTE | 2022-06-30 06:15 | NUR ---
Pt awake, sitting in her recliner, sitter is bedside.
[2022-06-30] MEDS: sennosides 8.6mg tablet PO SCH ×2 (08:15→20:00)
[2022-06-30] MEDS: ferrous sulfate 325mg tablet PO SCH ×2 (08:15→20:00)
[2022-06-30] MEDS: lamoTRIgine 100mg tablet PO SCH ×2 (08:15→21:01)
[2022-06-30] MEDS: ziprasidone 20mg capsule PO SCH ×2 (08:15→21:02)
[2022-06-30] MEDS: clonazePAM 0.5mg tablet PO SCH ×3 (08:16→17:42)
[2022-06-30] MEDS: lactobacillus rhamnosus 10,000 MMU CELLS/CAPSULE PO SCH ×2 (08:16→20:00)
[2022-06-30] MEDS: vortioxetine HBr tablet 5 MG TABLET PO SCH ×2 (08:16→21:02)
[2022-06-30] MEDS: multivitamins, therapeutics tablet PO SCH (08:16)
[2022-06-30] MEDS: atorvastatin 10mg tablet PO SCH (08:16)
[2022-06-30] MEDS: ascorbic acid 500mg tablet PO SCH ×2 (08:16→20:00)
[2022-06-30] MEDS: nicotine 7mg patch - 24hr TD SCH (08:16)
--- NOTE | 2022-06-30 08:39 | NUR ---
Medications administered. Pt eating breakfast.
--- NOTE | 2022-06-30 10:06 | NUR ---
Pt up near the nurses station, drinking her coffee. Pt has been in a pleasant mood this moring.
--- NOTE | 2022-06-30 12:05 | NUR ---
Pt. eating lunch at bedside with sitter by her side. No acute distress noted.
--- NOTE | 2022-06-30 13:29 | NUR ---
Pt given Tylenol with codeine for c/o 10/02 bilateral leg pain, pt. repeatedly asking for "morphine, morphine." Pt encourgaed to sit down and elevate her legs.
--- NOTE | 2022-06-30 15:25 | NUR ---
Pt resting with eyes closed in recliner chair. No distress noted.
--- NOTE | 2022-06-30 15:54 | NUR ---
Pt sitting in recliner chair with legs elevated, sitter at bedside. Pt is smiling and appears comfortable. Pt telling her sitter, "I'm pregant."
[2022-06-30] MEDS: quetiapine fumarate ER 300mg tablet PO SCH (16:00)
--- NOTE | 2022-06-30 17:38 | NUR ---
Pt sitting in recliner, sitter at bedside. No distress noted.
[2022-06-30] MEDS: acetaminophen 325mg tablet PO PRN (18:42)
--- NOTE | 2022-06-30 19:07 | NUR ---
Sitter at bedside, pt requested tylenol for general pain. Pt cooperative and is sitting in recliner.
[2022-06-30] MEDS: polyethylene glycol 3350 17gm powd pack PO SCH (21:00)
[2022-06-30] MEDS: docusate sod 250mg capsule PO SCH (21:00)
[2022-06-30] MEDS: montelukast 10mg tablet PO SCH (21:01)
[2022-06-30] MEDS: fluvoxamine 25 MG tablet PO SCH (21:02)
--- NOTE | 2022-06-30 21:56 | NUR ---
Pt up to the BR with sitter. Pt cooperative with care, PO medications given.
--- NOTE | 2022-06-30 23:01 | NUR ---
Pt slightly agitated since sitter left. Yelling/demanding of items. Pt decided to sit in her recliner and is playing with her mask.
--- NOTE | 2022-07-01 00:15 | NUR ---
Pt requesting "morphine" which means tylenol #3; given for general pain with good effect.
[2022-07-01] MEDS: acetaminophen w/codeine (30MG) #3 tablet PO PRN ×3 (00:21→16:39)
--- NOTE | 2022-07-01 01:08 | NUR ---
Pt fell asleep in her chair.
--- NOTE | 2022-07-01 05:43 | NUR ---
Pt became agitated and stated that she is hungry. Pt is standing in her room yelling and crying that she is hungry. Crackers, coffee provided.
--- NOTE | 2022-07-01 06:36 | NUR ---
Received pt. awake up on the unit using FWW and slightly agitated at the beginning of the shift, per report from fiberglasser, pt. had only slept approximately one-hour last night. Pt. was yelling out about wanting food and medications, she was able to be redirected to her room. Ordered wound care was completed to pt's left cheek as she had proceeded to pull the former dressing in-place off. The wound presents with moderate serosanguinous exudate. Area was cleaned and a new dressing was applied, pt. tolerated this procedure well. Pt's bilateral lower extremities continue to be firm with edematous, reddened skin. Ordered lotion was applied, and pt. continues to be encouraged to elevate her legs in the reclining chair available to her in her room. Pt. continues to be non-compliant with elevating her legs, this internal communications writer will continue to provide education and encouragement to pt. Addendum: 07/01/22 at 1147 by WILY Pt. is in in direct line of sight of the nurse's station.
[2022-07-01] MEDS: atorvastatin 10mg tablet PO SCH (07:00)
[2022-07-01] MEDS: lactobacillus rhamnosus 10,000 MMU CELLS/CAPSULE PO SCH ×2 (07:00→20:50)
[2022-07-01] MEDS: vortioxetine HBr tablet 5 MG TABLET PO SCH ×2 (07:00→20:49)
[2022-07-01] MEDS: ziprasidone 20mg capsule PO SCH ×2 (07:00→20:49)
[2022-07-01] MEDS: lamoTRIgine 100mg tablet PO SCH ×2 (07:00→20:49)
[2022-07-01] MEDS: sennosides 8.6mg tablet PO SCH ×2 (07:00→20:49)
[2022-07-01] MEDS: clonazePAM 0.5mg tablet PO SCH ×3 (07:01→16:38)
[2022-07-01] MEDS: ferrous sulfate 325mg tablet PO SCH ×2 (07:01→20:49)
[2022-07-01] MEDS: nicotine 7mg patch - 24hr TD SCH (07:01)
[2022-07-01] MEDS: multivitamins, therapeutics tablet PO SCH (07:01)
[2022-07-01] MEDS: ascorbic acid 500mg tablet PO SCH ×2 (07:01→20:50)
--- NOTE | 2022-07-01 08:31 | NUR ---
Pt. is sitting up in her chair at bedside eating breakfast at this time. She complains of bilateral leg pain and requests PRN pain medication, medication was provided and will continue to monitor and encourage pt. to elevate her legs.
--- NOTE | 2022-07-01 10:00 | NUR ---
Dr. Mcallister over to evaluate pt's bilateral feet and legs at this time r/t edema, redness, and complaints of pain at areas. Per Dr. Mcallister, areas do not show any s/s of infection at this time, will continue to monitor closely.
--- NOTE | 2022-07-01 10:31 | NUR ---
Pt. is sleeping sittng up in her reclining chair at this time, legs are elevated. RR are even and unlabored.
--- NOTE | 2022-07-01 12:17 | NUR ---
Pt. is sitting up at bedside eating lunch at this time.
--- NOTE | 2022-07-01 14:34 | NUR ---
Pt. napped and then awoke needing the bathroom, she is agitated at this time yelling loudly, "I want blue pants!" However the pants she has on clean and dry, staff will attempt to redirect.
--- NOTE | 2022-07-01 14:37 | NUR ---
Pt's 1:1 sitter provided by Jessica arrived at this time and is at bedside.
[2022-07-01] MEDS: quetiapine fumarate ER 300mg tablet PO SCH (15:00)
--- NOTE | 2022-07-01 16:00 | NUR ---
Pt. got up from her chair and lay down in bed on her own. She continues to be monitored closely by sitter.
--- NOTE | 2022-07-01 17:56 | NUR ---
PT. is sleeping in her reclining chair at this time, feet are elevated. She continues to be closely monitored by aldo.
--- NOTE | 2022-07-01 18:30 | NUR ---
Patient sitting up in chair taking a nap upon arrival to shift. No needs noted. Will continue to monitor.
[2022-07-01] MEDS ORDERED: ondansetron 4mg rapidly disintigrating tab PO PRN (20:05)
[2022-07-01] MEDS ORDERED: morphine IR (immed. release) 30mg tablet PO PRN (20:05)
--- NOTE | 2022-07-01 20:30 | NUR ---
Patient compliant with HS medications. Got her new pain med orders for back and leg pain. VS stable prior to administering it. Will continue to monitor.
[2022-07-01] MEDS: fluvoxamine 25 MG tablet PO SCH (20:49)
[2022-07-01] MEDS: docusate sod 250mg capsule PO SCH (20:49)
[2022-07-01] MEDS: montelukast 10mg tablet PO SCH (20:50)
[2022-07-01] MEDS: polyethylene glycol 3350 17gm powd pack PO SCH (20:52)
--- NOTE | 2022-07-01 21:35 | NUR ---
Patient sleeping up in recliner at this time. Will assist her to bed soon to help her be more comfortable. Will continue to monitor.
--- NOTE | 2022-07-01 22:05 | NUR ---
Patient sleeping well. Escorted her from recliner to bed with 2 person max assist. RR even/nonlabored at 15 breaths per minute. Appears to be comfortable in bed. Will continue to monitor.
--- NOTE | 2022-07-02 00:30 | NUR ---
Patient sleeping well with HOB up on back. Occasionally moves around and talks in her sleep then falls back into a deep sleep quickly. Appears to be comfortable. Will continue to monitor.
--- NOTE | 2022-07-02 02:57 | NUR ---
Patient woke up about 45 minutes ago got up to the BR after having incontinent episode during sleep. Assisted her in clean up then escorted her back to her bed as patient was falling asleep standing. Braided her hair per patient request and she fell back asleep. Will continue to monitor.
--- NOTE | 2022-07-02 05:20 | NUR ---
Patient is slowly waking up. VSS. BP 98/58 this am. Resting in bed currently. Denies needs. Slept most of shift starting at 2130 with the exception of 45 minutes in the middle of the night. Will continue to monitor.
--- NOTE | 2022-07-02 05:38 | NUR ---
Asked ER MD if she wanted to discontinue one of the pain medications since patient had a strong effect from Morphine last night. No orders. Suggests RN ask dayshift MD to come round on patient and make that decision.
--- NOTE | 2022-07-02 07:09 | NUR ---
Pt resting in her reclinerMary carlson at bedside. Addendum: 07/02/22 at 0905 by LYNDA Pt sedated.
[2022-07-02] MEDS: nicotine 7mg patch - 24hr TD SCH (08:00)
[2022-07-02] MEDS: clonazePAM 0.5mg tablet PO SCH ×3 (08:00→17:00)
[2022-07-02] MEDS: lactobacillus rhamnosus 10,000 MMU CELLS/CAPSULE PO SCH ×2 (08:24→20:19)
[2022-07-02] MEDS: ferrous sulfate 325mg tablet PO SCH ×2 (08:25→20:19)
[2022-07-02] MEDS: lamoTRIgine 100mg tablet PO SCH ×2 (08:25→20:19)
[2022-07-02] MEDS: atorvastatin 10mg tablet PO SCH (08:25)
[2022-07-02] MEDS: sennosides 8.6mg tablet PO SCH ×2 (08:25→20:19)
[2022-07-02] MEDS: multivitamins, therapeutics tablet PO SCH (08:25)
[2022-07-02] MEDS: ziprasidone 20mg capsule PO SCH ×3 (08:25→20:19)
[2022-07-02] MEDS: vortioxetine HBr tablet 5 MG TABLET PO SCH ×2 (08:25→20:20)
[2022-07-02] MEDS: ascorbic acid 500mg tablet PO SCH ×2 (08:27→20:23)
--- NOTE | 2022-07-02 08:30 | NUR ---
HELD MORNING KLONOPING R/T SEDATION.
--- NOTE | 2022-07-02 09:01 | NUR ---
Pt continues to present sedated r/t morphine administered last night. Pt's sitter is at bedside assisting patient with breakfast. Pt was compliant with medication. Pt was up to bathroom.
--- NOTE | 2022-07-02 09:19 | NUR ---
Having pt's feet elevated the last fifteen minutes as drastically decreased edema.
--- NOTE | 2022-07-02 09:37 | NUR ---
Placed 2LNC on patient. Pt sedated. Pt sitting in recliner with monitoring. BP 91/54; HR 76; 96% O2. Pt's BP dropped to 89/47, but came back up. Dr. Mcallister notified. Will continue to monitor. Morning Mabel and Arnulfo were held.
--- NOTE | 2022-07-02 09:40 | NUR ---
DR OLGUIN DECREASED MORPHINE TO 15 MG.
--- NOTE | 2022-07-02 10:14 | NUR ---
Pt on continous monitoring. Vitals stable HR 76; 99% 2LNC; BP 98/48
--- NOTE | 2022-07-02 10:29 | NUR ---
Sitter at bedside. Permastone Applicator took pt's headband off her forehead and patient mumbled "I need that for evidence." Headband was placed back on patient.
--- NOTE | 2022-07-02 10:45 | NUR ---
Sitter repositioned patient to a postion of comfort.
--- NOTE | 2022-07-02 11:30 | NUR ---
Pt continues to be monitored, sitter at bedside. Vitals stable BP 98/55; HR 71; O2 98% 2LNC.
--- NOTE | 2022-07-02 12:30 | NUR ---
Pt woke and requested to use the bathroom. Pt was assisted via W/C to bathroom. Pt is groggy, but was able to assist sheet writer and sitter. Pt voided in toilet, depends was dry. Pt then laid down in bed and was assisted with lunch. Vitals: BP 117/64; HR 72; O2 88% w/o; O2 2LNC = 95%.
--- NOTE | 2022-07-02 13:00 | NUR ---
Pt independently ate her lunch (soft food only.)
--- NOTE | 2022-07-02 13:26 | NUR ---
Pt lying in low patrick's position, with neck pillow. Pt on 2LNC continues to sleep deep. Vitals BP 100/57; HR 70; O2 95%. RR 18. No sign of distress, rr even and unlabored.
--- NOTE | 2022-07-02 15:07 | NUR ---
Pt woke and sat up in her recliner saying "I'm hungry." Sitter at bedside. Pt eating turkey sandwich and yogurt.
--- NOTE | 2022-07-02 15:50 | NUR ---
Pt found her chocolate cake from lunch, she finished that then put herself in bed. Sitter assisted.
[2022-07-02] MEDS: quetiapine fumarate ER 300mg tablet PO SCH (16:00)
--- NOTE | 2022-07-02 16:18 | NUR ---
HELD 1600 SEROQUEL R/T SEDATION. PT BACK TO BED SLEEPING.
--- NOTE | 2022-07-02 17:00 | NUR ---
HELD PT'S 4618 CHUCK R/T SEDATION
--- NOTE | 2022-07-02 17:44 | NUR ---
Pt woke wanting to go to the bathroom. Pt was assisted by PCT.
--- NOTE | 2022-07-02 18:30 | NUR ---
Upon turn of shift noted patient sitting up in recliner calm/cooperative. Sitter at bedside. Sitter reports he'll be leaving at 2100.
[2022-07-02] MEDS: montelukast 10mg tablet PO SCH (20:19)
[2022-07-02] MEDS: fluvoxamine 25 MG tablet PO SCH (20:19)
[2022-07-02] MEDS: polyethylene glycol 3350 17gm powd pack PO SCH (20:19)
[2022-07-02] MEDS: docusate sod 250mg capsule PO SCH (20:19)
[2022-07-02] MEDS: nystatin 15 GM powder TP PRN (20:20)
[2022-07-02] MEDS: acetaminophen w/codeine (30MG) #3 tablet PO PRN (20:20)
--- NOTE | 2022-07-02 20:20 | NUR ---
Patient was HS med compliant. Content, calm and cooperative sitting up in recliner. Gave her some chocolates. Patient states, "You spoil me." and smiled.
--- NOTE | 2022-07-02 20:30 | NUR ---
Dorian reports that he is going to leave now. RN said, "I thought you were staying until 9." Dorian reports I'm going to leave now.
--- NOTE | 2022-07-02 21:50 | NUR ---
Jessica carlson arrived at this time.
--- NOTE | 2022-07-02 22:30 | NUR ---
Patient making demands about keeping the "fucking" light on and "fuck" this/that. Made patient aware that we'll keep the light on while she's awake and turn if off once she's asleep. Will administer Clonazepam 0.5 mg po for anxiety.
[2022-07-02] MEDS: clonazePAM 0.5mg tablet PO PRN (22:52)
--- NOTE | 2022-07-02 23:10 | NUR ---
Patient currently resting quietly in bed looking at her book. Appears to be getting sleepy. Dayshift reported that she napped alot today. Made a comfortable atmosphere for her to sleep tonight. Jessica carlson at bedside with patient.
--- NOTE | 2022-07-03 01:00 | NUR ---
Noted patient had fallen asleep with yogurt in hand sitting up in bed with legs down. Lifted legs into bed and tucked patient in. Patient awoke during this time. Braided her hair and noted she had fallen asleep again. Turned lights off and stepped away creating a quiet environment for patient.
--- NOTE | 2022-07-03 03:30 | NUR ---
Patient woke up, "excuse me," twice. Approached patient both times, and patient fell back asleep.
--- NOTE | 2022-07-03 05:18 | NUR ---
Patient awake, got her a fresh cup of coffee. Walking the unit slowly with her walker mumbling words under her breath. Steady up on feet. Pleasant and cooperative. Will continue to monitor.
--- NOTE | 2022-07-03 07:15 | NUR ---
Pt standing near nurses station drinking her coffee. Pt presents with a bright affect, smiling. Pt's speech is clear, asking security "what is all that stuff on your belt." "How do you keep your pants up?"
--- NOTE | 2022-07-03 08:00 | NUR ---
Left [address] message for update on oncology follow up.
[2022-07-03] MEDS: ziprasidone 20mg capsule PO SCH ×2 (08:24→20:21)
[2022-07-03] MEDS: lamoTRIgine 100mg tablet PO SCH ×2 (08:25→20:21)
[2022-07-03] MEDS: multivitamins, therapeutics tablet PO SCH (08:25)
[2022-07-03] MEDS: sennosides 8.6mg tablet PO SCH ×2 (08:25→20:21)
[2022-07-03] MEDS: atorvastatin 10mg tablet PO SCH (08:25)
[2022-07-03] MEDS: lactobacillus rhamnosus 10,000 MMU CELLS/CAPSULE PO SCH ×2 (08:25→20:21)
[2022-07-03] MEDS: ferrous sulfate 325mg tablet PO SCH ×2 (08:25→20:21)
[2022-07-03] MEDS: vortioxetine HBr tablet 5 MG TABLET PO SCH ×2 (08:25→20:21)
[2022-07-03] MEDS: clonazePAM 0.5mg tablet PO SCH ×3 (08:25→17:30)
[2022-07-03] MEDS: ascorbic acid 500mg tablet PO SCH ×2 (08:25→20:27)
--- NOTE | 2022-07-03 09:00 | NUR ---
Pt's sitter took her down to be showered.
[2022-07-03] MEDS: nicotine 7mg patch - 24hr TD SCH (10:15)
--- NOTE | 2022-07-03 11:30 | NUR ---
Pt standing in her room drinking her coffee.
--- NOTE | 2022-07-03 12:30 | NUR ---
Pt up to bathroom, depends dry.
--- NOTE | 2022-07-03 13:15 | NUR ---
Pt put herself in bed and is resting comfortably.
--- NOTE | 2022-07-03 13:43 | NUR ---
Pt in interview for conservatorship with Dr. Sue.
--- NOTE | 2022-07-03 14:24 | NUR ---
Patient is back to her room lying on her bed. Respirations even and unlabored.
--- NOTE | 2022-07-03 16:30 | NUR ---
Patient awake sitting in her recliner
[2022-07-03] MEDS: quetiapine fumarate ER 300mg tablet PO SCH (17:30)
--- NOTE | 2022-07-03 19:30 | NUR ---
The patient is quiet and following direction. She is currently resting on her bed after eating dinner.
[2022-07-03] MEDS: docusate sod 250mg capsule PO SCH (20:21)
[2022-07-03] MEDS: montelukast 10mg tablet PO SCH (20:21)
[2022-07-03] MEDS: fluvoxamine 25 MG tablet PO SCH (20:22)
[2022-07-03] MEDS: polyethylene glycol 3350 17gm powd pack PO SCH (20:22)
[2022-07-03] MEDS: nystatin 15 GM powder TP SCH ×2 (20:27→21:00)
--- NOTE | 2022-07-03 20:45 | NUR ---
The patient up to use the bathroom.
--- NOTE | 2022-07-03 21:36 | NUR ---
The patient appears to be sleeping
--- NOTE | 2022-07-03 22:59 | NUR ---
The patient appears to be sleeping
--- NOTE | 2022-07-04 00:27 | NUR ---
The patient appears to be sleeping
--- NOTE | 2022-07-04 02:00 | NUR ---
The patient appears to be sleeping
--- NOTE | 2022-07-04 03:26 | NUR ---
The patient is up to use the bathroom
--- NOTE | 2022-07-04 05:06 | NUR ---
The patient is awake but has slept well during the night
[2022-07-04] MEDS: lamoTRIgine 100mg tablet PO SCH ×2 (07:01→20:00)
[2022-07-04] MEDS: ziprasidone 20mg capsule PO SCH ×2 (07:01→20:00)
[2022-07-04] MEDS: lactobacillus rhamnosus 10,000 MMU CELLS/CAPSULE PO SCH ×2 (07:02→20:00)
[2022-07-04] MEDS: ferrous sulfate 325mg tablet PO SCH ×2 (07:02→20:00)
[2022-07-04] MEDS: atorvastatin 10mg tablet PO SCH (07:02)
[2022-07-04] MEDS: clonazePAM 0.5mg tablet PO SCH ×3 (07:02→17:12)
[2022-07-04] MEDS: sennosides 8.6mg tablet PO SCH ×2 (07:02→20:00)
[2022-07-04] MEDS: multivitamins, therapeutics tablet PO SCH (07:02)
[2022-07-04] MEDS: vortioxetine HBr tablet 5 MG TABLET PO SCH ×2 (07:03→20:00)
[2022-07-04] MEDS: nystatin 15 GM powder TP SCH ×2 (08:00→13:00)
--- NOTE | 2022-07-04 08:00 | NUR ---
Pt. awake and eating breakfast in her chair. Pt. took all AM medications. Pt's sitter is with pt.
[2022-07-04] MEDS: ascorbic acid 500mg tablet PO SCH ×2 (08:57→20:00)
[2022-07-04] MEDS: nicotine 7mg patch - 24hr TD SCH (09:00)
--- NOTE | 2022-07-04 10:00 | NUR ---
Pt. pulled her bandage off her face. scant amount of bright red blood noticed. RN cleansed pt.'s wound with normal saline and patted dry with towel. Wound covered with xeroform and gauze and surgical tape. Jessica carlson has left and RN contacted Jessica and informed that next sitter is running late.
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
--- NOTE | 2022-07-04 14:00 | NUR ---
Pt. showered by her sitter.
[2022-07-04] MEDS: quetiapine fumarate ER 300mg tablet PO SCH (15:15)
--- NOTE | 2022-07-04 19:00 | NUR ---
The patient is one to one with her assigned staff. She is irritable but did calm down once she began eating her dinner.
[2022-07-04] MEDS: montelukast 10mg tablet PO SCH (21:00)
[2022-07-04] MEDS: fluvoxamine 25 MG tablet PO SCH (21:00)
[2022-07-04] MEDS: polyethylene glycol 3350 17gm powd pack PO SCH (21:00)
[2022-07-04] MEDS: docusate sod 250mg capsule PO SCH (21:00)
--- NOTE | 2022-07-04 21:09 | NUR ---
The patient is currently asleep in her chair.
--- NOTE | 2022-07-05 01:23 | NUR ---
The patient has been awake and up to use the bathroom. She continues one to one with her assigned staff.
--- NOTE | 2022-07-05 03:08 | NUR ---
The patient appears to be sleeping
--- NOTE | 2022-07-05 05:18 | NUR ---
The patient is awake. She is one to one with her staff. She is drinking coffee.
[2022-07-05] MEDS: acetaminophen w/codeine (30MG) #3 tablet PO PRN ×2 (07:11→16:12)
[2022-07-05] MEDS: atorvastatin 10mg tablet PO SCH (08:37)
[2022-07-05] MEDS: nicotine 7mg patch - 24hr TD SCH (08:37)
[2022-07-05] MEDS: sennosides 8.6mg tablet PO SCH ×2 (08:37→20:23)
[2022-07-05] MEDS: ziprasidone 20mg capsule PO SCH ×2 (08:37→20:25)
[2022-07-05] MEDS: lamoTRIgine 100mg tablet PO SCH ×2 (08:37→20:23)
[2022-07-05] MEDS: clonazePAM 0.5mg tablet PO SCH ×3 (08:37→17:43)
[2022-07-05] MEDS: ferrous sulfate 325mg tablet PO SCH ×2 (08:37→20:23)
[2022-07-05] MEDS: multivitamins, therapeutics tablet PO SCH (08:37)
[2022-07-05] MEDS: lactobacillus rhamnosus 10,000 MMU CELLS/CAPSULE PO SCH ×2 (08:38→20:23)
[2022-07-05] MEDS: ascorbic acid 500mg tablet PO SCH ×2 (08:38→20:23)
[2022-07-05] MEDS: vortioxetine HBr tablet 5 MG TABLET PO SCH ×2 (08:42→20:00)
--- NOTE | 2022-07-05 11:18 | NUR ---
Pt walked out into the [place] while staff was busy. Brought back by security and manager lighting. Pt placed in bed. Yelling and cussing she doesn't want to be in bed.
[2022-07-05] MEDS: clonazePAM 0.5mg tablet PO PRN (11:38)
[2022-07-05] MEDS: morphine IR (immed. release) 30mg tablet PO PRN (13:04)
[2022-07-05] MEDS: quetiapine fumarate ER 300mg tablet PO SCH (16:11)
--- NOTE | 2022-07-05 19:00 | NUR ---
The patient sitting up and eating her dinner and watching TV.
[2022-07-05] MEDS: polyethylene glycol 3350 17gm powd pack PO SCH (20:23)
[2022-07-05] MEDS: montelukast 10mg tablet PO SCH (20:23)
[2022-07-05] MEDS: docusate sod 250mg capsule PO SCH (20:23)
[2022-07-05] MEDS: fluvoxamine 25 MG tablet PO SCH (20:23)
--- NOTE | 2022-07-05 21:47 | NUR ---
The patient is sitting by her bed and is asleep in her chair.
--- NOTE | 2022-07-05 23:11 | NUR ---
The patient appears to be sleeping
--- NOTE | 2022-07-06 01:04 | NUR ---
The patient appears to be sleeping
--- NOTE | 2022-07-06 03:02 | NUR ---
The patient appears to be sleeping
--- NOTE | 2022-07-06 05:07 | NUR ---
The patient appeared to have slept well during the night. She is currently awake and drinking coffee.
--- NOTE | 2022-07-06 07:58 | NUR ---
Patient awake at shift change. She is quiet at the moment.
[2022-07-06] MEDS: vortioxetine HBr tablet 5 MG TABLET PO SCH ×2 (08:00→20:37)
[2022-07-06] MEDS: ferrous sulfate 325mg tablet PO SCH ×2 (08:20→20:37)
[2022-07-06] MEDS: multivitamins, therapeutics tablet PO SCH (08:20)
[2022-07-06] MEDS: clonazePAM 0.5mg tablet PO SCH ×3 (08:20→16:33)
[2022-07-06] MEDS: atorvastatin 10mg tablet PO SCH (08:20)
[2022-07-06] MEDS: ziprasidone 20mg capsule PO SCH ×2 (08:20→20:36)
[2022-07-06] MEDS: lactobacillus rhamnosus 10,000 MMU CELLS/CAPSULE PO SCH ×2 (08:20→20:37)
[2022-07-06] MEDS: sennosides 8.6mg tablet PO SCH ×2 (08:20→20:36)
[2022-07-06] MEDS: lamoTRIgine 100mg tablet PO SCH ×2 (08:20→20:36)
[2022-07-06] MEDS: nicotine 7mg patch - 24hr TD SCH (08:27)
[2022-07-06] MEDS: ascorbic acid 500mg tablet PO SCH ×2 (08:28→20:36)
--- NOTE | 2022-07-06 10:05 | NUR ---
Patient awake and doing her usual, "I want, I want, I want."
--- NOTE | 2022-07-06 12:13 | NUR ---
Patient currently eating her lunch. She is content for the moment.
--- NOTE | 2022-07-06 14:41 | NUR ---
Patient is napping in her chair with her feet up.
--- NOTE | 2022-07-06 15:17 | NUR ---
Agree with [facility] ASW SPECIALIST documentation.
[2022-07-06] MEDS: quetiapine fumarate ER 300mg tablet PO SCH (16:32)
--- NOTE | 2022-07-06 17:21 | NUR ---
Patient using the restroom assisted by her sitter.
--- NOTE | 2022-07-06 19:25 | NUR ---
Patient is back from her shower. She has a sitter at bedside from [facility]. Patient is cooperative.
[2022-07-06] MEDS: fluvoxamine 25 MG tablet PO SCH (20:36)
[2022-07-06] MEDS: docusate sod 250mg capsule PO SCH (20:36)
[2022-07-06] MEDS: montelukast 10mg tablet PO SCH (20:37)
[2022-07-06] MEDS: clonazePAM 0.5mg tablet PO PRN (20:41)
[2022-07-06] MEDS: acetaminophen w/codeine (30MG) #3 tablet PO PRN (20:42)
[2022-07-06] MEDS: polyethylene glycol 3350 17gm powd pack PO SCH (21:00)
--- NOTE | 2022-07-06 21:04 | NUR ---
This patient spat her nightime medications onto the floor.
--- NOTE | 2022-07-06 21:37 | NUR ---
Patient has been labile, cussing, and arguementative with staff over the past hour. The sitter is allowing this patient to be moved around in a wheelchair. This does calm the patient somewhat.
--- NOTE | 2022-07-07 00:08 | NUR ---
Patient is sitting quietly in her chair, she is asleep. No distress.
--- NOTE | 2022-07-07 01:07 | NUR ---
Patient is sleeping in a sitting position. A sitter is observing. No distress noted.
--- NOTE | 2022-07-07 02:11 | NUR ---
Patient continues to sleep in a high fowlers position in her chair. No distress.
--- NOTE | 2022-07-07 03:12 | NUR ---
Patient remains sleeping in a sitting position. No distress.
--- NOTE | 2022-07-07 04:40 | NUR ---
Patient awakens. Patient exhibits some agitation. Patient raises her voice and requesta pain medicine. A sitter is at bedside.
[2022-07-07] MEDS: morphine IR (immed. release) 30mg tablet PO PRN ×2 (05:40→20:07)
--- NOTE | 2022-07-07 05:48 | NUR ---
Patient was given timed release morphine 15 mg PO. The patient also ate jello.
--- NOTE | 2022-07-07 06:30 | NUR ---
Received pt. awake sitting up in a chair at bedside at the beginning of the shift. Pt. has an Jessica sitter at bedside. Pt. yells out occasionally making demands, but is able to be redirected.
[2022-07-07] MEDS: ferrous sulfate 325mg tablet PO SCH ×2 (07:28→20:00)
[2022-07-07] MEDS: lactobacillus rhamnosus 10,000 MMU CELLS/CAPSULE PO SCH ×2 (07:28→20:00)
[2022-07-07] MEDS: lamoTRIgine 100mg tablet PO SCH ×2 (07:29→20:00)
[2022-07-07] MEDS: sennosides 8.6mg tablet PO SCH ×2 (07:29→20:00)
[2022-07-07] MEDS: multivitamins, therapeutics tablet PO SCH (07:29)
[2022-07-07] MEDS: vortioxetine HBr tablet 5 MG TABLET PO SCH ×2 (07:29→20:00)
[2022-07-07] MEDS: ascorbic acid 500mg tablet PO SCH ×2 (07:29→20:00)
[2022-07-07] MEDS: clonazePAM 0.5mg tablet PO SCH ×3 (07:29→16:00)
[2022-07-07] MEDS: ziprasidone 20mg capsule PO SCH ×2 (07:29→20:00)
[2022-07-07] MEDS: atorvastatin 10mg tablet PO SCH (07:29)
[2022-07-07] MEDS: nicotine 7mg patch - 24hr TD SCH (07:30)
--- NOTE | 2022-07-07 08:00 | NUR ---
Pt. yelling out loudly at this time regarding her desire for food and coffee although she had just been provided with a snack. Pt. then yelled, "I need my lunch!" Staff attempted to provide re-orientation to pt. regarding the fact she had not breakfast yet without effectiveness. Staff provided ongoing redirection to pt. regarding her behavior, however she continued to yell out demanding different items until becoming tired. Will continue to monitor pt. closely and provide redirection as needed.
[2022-07-07] MEDS: acetaminophen w/codeine (30MG) #3 tablet PO PRN (08:43)
--- NOTE | 2022-07-07 08:47 | NUR ---
Pt. continues to report 8/10 generalized pain, PRN Tylenol with Codeine was administered and will continue to monitor.
--- NOTE | 2022-07-07 10:30 | NUR ---
Pt. removed the dressing from her left cheek and ordered wound care was completed. The wound continues to presents with serosanguinous exudate. Area was cleaned and a new dressing was applied, pt. tolerated this procedure well. Pt's bilateral lower extremities continue to present with pitting edema and are slightly reddened skin. Ordered lotion was applied, and pt. continues to be encouraged to elevate her legs in the reclining chair available to her in her room. She is mostly non-complaint with this, and this assembly instructions writer will continue to provide education and encouragement. Pt's nails were trimmed as she uses them to pick at her wound requiring frequent redirection. Will continue to monitor closely.
--- NOTE | 2022-07-07 12:00 | NUR ---
Pt. continues to sleep, this marketing underwriter held her scheduled noon dose of Klonopin r/t fatigue. Will continue to monitor pt. closely, pt's sitter remains at bedside.
--- NOTE | 2022-07-07 12:26 | NUR ---
Pt. is sitting up in her recliner at bedside sleeping at this time. Legs and feet are elevated. Sitter remains with patient.
--- NOTE | 2022-07-07 14:31 | NUR ---
Pt. is sitting up eating at this time. Her sitter left at 1400, however a new sitter is scheduled to arrive at 1500. Pt. is in line of sight of the nurse's station, will continue to monitor closely.
--- NOTE | 2022-07-07 15:45 | NUR ---
Pt. was noted to be falling asleep while sitting up in a plastic chair with no sides on it. Staff asked her to move to her reclining chair which has sides for safety precautions. Pt. refused but did stand up and allowed staff to escort her to the reclining chair. Pt. then proceeded to yell out repeatedly, "I want that chair!" However, she was able to be redirected and was provided with a snack. Pt's Jessica sitter arrived at this time and pt. is acting appropriately.
[2022-07-07] MEDS: quetiapine fumarate ER 300mg tablet PO SCH (15:48)
--- NOTE | 2022-07-07 16:23 | NUR ---
Pt. is watching TV while sitting in her reclining chair at this time, sitter is at bedside.
--- NOTE | 2022-07-07 17:58 | NUR ---
Continues to sit up in recliner at bedside watching TV, sitter is at bedside.
--- NOTE | 2022-07-07 19:06 | NUR ---
Patient is awake and well oriented. She has a sitter at bedside. Patient is cooperative with staff. She is calm at this time. Patient was up to toilet. Her sitter is assisting. She has a television at bedside which she watches intermittently.
--- NOTE | 2022-07-07 19:23 | NUR ---
Patient is becoming labile. She complains of bilateral leg pain. She requests her PRN morphine. Patient was redirected.
--- NOTE | 2022-07-07 20:13 | NUR ---
Patient took Rx MS for her bilat leg pain.
[2022-07-07] MEDS: polyethylene glycol 3350 17gm powd pack PO SCH (21:00)
[2022-07-07] MEDS: fluvoxamine 25 MG tablet PO SCH (21:00)
[2022-07-07] MEDS: docusate sod 250mg capsule PO SCH (21:00)
[2022-07-07] MEDS: montelukast 10mg tablet PO SCH (21:00)
--- NOTE | 2022-07-07 22:13 | NUR ---
Patient is sleeping quietly on her left side in bed. Good color. Normal resp at 14, good tidal volume.The agency sitter has left for the night. Our Unit EMT is assisting with observation of this patient now.
--- NOTE | 2022-07-07 23:29 | NUR ---
Patient remains sleeping in a supine position. Good color, regular resp.
--- NOTE | 2022-07-08 00:51 | NUR ---
Patient is sleeping on her left side. Her color is good. Resp 18. She has self repositioned in bed. Patient was sleeping during medication pass.
--- NOTE | 2022-07-08 01:58 | NUR ---
Patient awoke, up to bathroom. Patient voided on self and bathroom floor. Patient was cleaned and given a new gown, etc. Patients bedding was also changed.
--- NOTE | 2022-07-08 03:00 | NUR ---
Patient is awake now and sitting in her. Patient requires some redirection.
--- NOTE | 2022-07-08 04:08 | NUR ---
Patient up to bathroom. Her brief was changed and she was given clean scrubs.
--- NOTE | 2022-07-08 05:51 | NUR ---
Patient is awake sitting in her chair. She sings intermittently and sometimes exhibits defiant behavior.
--- NOTE | 2022-07-08 06:00 | NUR ---
Patient has removed the bandage from her left face, "because it itches." The patient then picked at the wound.
--- NOTE | 2022-07-08 07:24 | NUR ---
Received Pt awake and standing by her bed with a magazine in her hand. Pt using FWW to ambulate.
[2022-07-08] MEDS: sennosides 8.6mg tablet PO SCH ×2 (08:18→20:00)
[2022-07-08] MEDS: ferrous sulfate 325mg tablet PO SCH ×2 (08:18→20:00)
[2022-07-08] MEDS: lactobacillus rhamnosus 10,000 MMU CELLS/CAPSULE PO SCH ×2 (08:18→20:00)
[2022-07-08] MEDS: vortioxetine HBr tablet 5 MG TABLET PO SCH ×2 (08:18→20:00)
[2022-07-08] MEDS: clonazePAM 0.5mg tablet PO SCH ×3 (08:19→16:28)
[2022-07-08] MEDS: lamoTRIgine 100mg tablet PO SCH ×2 (08:19→20:00)
[2022-07-08] MEDS: atorvastatin 10mg tablet PO SCH (08:19)
[2022-07-08] MEDS: ziprasidone 20mg capsule PO SCH ×2 (08:19→20:00)
[2022-07-08] MEDS: ascorbic acid 500mg tablet PO SCH ×2 (08:19→20:00)
[2022-07-08] MEDS: multivitamins, therapeutics tablet PO SCH (08:19)
[2022-07-08] MEDS: nicotine 7mg patch - 24hr TD SCH (08:28)
--- NOTE | 2022-07-08 09:32 | NUR ---
Pt yelling "there is no food!", "havn't showered in 6 months!". Pt redirected from exits multiple times. Pt calmed when breakfast arrived and took AM meds w/o issue. Pt resting in chair.
--- NOTE | 2022-07-08 10:30 | NUR ---
Pt set up to bath in sink and wash her hair. She completed getting cleaned up and was assisted in getting dressed.
--- NOTE | 2022-07-08 11:25 | NUR ---
Wound care completed per orders. Pt tolerated well.
--- NOTE | 2022-07-08 11:50 | NUR ---
Pt resting comfortably in her recliner.
--- NOTE | 2022-07-08 12:01 | NUR ---
Pt had her hair braded by Natacha MARTÍNEZ and fell asleep in her chair.
--- NOTE | 2022-07-08 14:22 | NUR ---
Pt ate small amount of lunch and fell asleep. Currently sleeping w/o distress in chair.
--- NOTE | 2022-07-08 15:45 | NUR ---
Pt off unit for shower, security with patient and sitter.
--- NOTE | 2022-07-08 15:55 | NUR ---
PT BACK ON UNIT.
[2022-07-08] MEDS: quetiapine fumarate ER 300mg tablet PO SCH (16:28)
--- NOTE | 2022-07-08 17:22 | NUR ---
Pt feeling good after shower and had a snack. Pt currently in her chair watching a movie and in no distress.
--- NOTE | 2022-07-08 19:23 | NUR ---
Pt ate dinner and is watching TV in her chair. Pt somewhat irritable and convinced it is morning despite expolanations.
[2022-07-08] MEDS: polyethylene glycol 3350 17gm powd pack PO SCH (21:00)
[2022-07-08] MEDS: fluvoxamine 25 MG tablet PO SCH (21:00)
[2022-07-08] MEDS: montelukast 10mg tablet PO SCH (21:00)
[2022-07-08] MEDS: docusate sod 250mg capsule PO SCH (21:00)
[2022-07-08] MEDS: acetaminophen w/codeine (30MG) #3 tablet PO PRN (21:59)
--- NOTE | 2022-07-08 22:00 | NUR ---
Pt yelling about about needing a shower and did not care that she had a shower today. Pt yelling about wanting breakfast and being "starved". Pt refused HS meds and only wanted morphine for facial pain. Pt given Tylenol with codeine which she agreed to take. She ate a snack and is laying in bed.
--- NOTE | 2022-07-09 00:13 | NUR ---
Assumed care from Trino MARTÍNEZ. Patient is awake and cooperative at this time.
--- NOTE | 2022-07-09 00:16 | NUR ---
Pain medications: This curriculum writer spoke with Dr. Awad. Patient has reluctantly taking her Tylenol 3 for pain and requesting her breakthrough Morphine instead. Per Dr. Ritesh Baumann'Erik Tylenol #3, change Morphine dose to 7.5 mg PO with a may repeat in one hour as needed for pain. This will be a PRN Q12 hour.
[2022-07-09] MEDS: morphine IR (immed. release) 30mg tablet PO PRN ×2 (01:10→21:53)
--- NOTE | 2022-07-09 01:54 | NUR ---
Patient is now calm. She states her pain is better. She sips her decaf and quietly watches television. She is so far resistant to sleep.
--- NOTE | 2022-07-09 02:11 | NUR ---
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 Patient is up to the bathroom afterwards.
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
--- NOTE | 2022-07-09 03:24 | NUR ---
This patient is sleeping quietlly in a low fowlers position in her bed.
--- NOTE | 2022-07-09 05:13 | NUR ---
Patient awoke, talked quietly for about a minute. Seems to the telivison being on. Patient returned to sleep.
--- NOTE | 2022-07-09 06:04 | NUR ---
Patient awoke for vital signs then quietly returned to sleep.
--- NOTE | 2022-07-09 07:00 | NUR ---
Lj cuellar in ED - 07/09/22 at 1934 by LYNDA Pt put herself into bed. Tech cleaned patient face and gown. Pt was administered her HS meds before she feel asleep.
[2022-07-09] MEDS: lamoTRIgine 100mg tablet PO SCH ×2 (08:00→18:52)
--- NOTE | 2022-07-09 08:04 | NUR ---
Pt's dressing on her face fell off, so replaced it w/ new xeroform, 2x2s, 4x4s and white silk tape. Sitter now with pt.
[2022-07-09] MEDS: lactobacillus rhamnosus 10,000 MMU CELLS/CAPSULE PO SCH ×2 (08:52→18:53)
[2022-07-09] MEDS: ziprasidone 20mg capsule PO SCH ×2 (08:53→18:52)
[2022-07-09] MEDS: ferrous sulfate 325mg tablet PO SCH ×2 (08:53→18:53)
[2022-07-09] MEDS: atorvastatin 10mg tablet PO SCH (08:54)
[2022-07-09] MEDS: clonazePAM 0.5mg tablet PO SCH ×3 (08:54→17:14)
[2022-07-09] MEDS: sennosides 8.6mg tablet PO SCH ×2 (08:54→18:53)
[2022-07-09] MEDS: nicotine 7mg patch - 24hr TD SCH (08:56)
[2022-07-09] MEDS: multivitamins, therapeutics tablet PO SCH (08:57)
[2022-07-09] MEDS: vortioxetine HBr tablet 5 MG TABLET PO SCH ×2 (08:57→18:53)
[2022-07-09] MEDS: ascorbic acid 500mg tablet PO SCH ×2 (08:57→20:00)
[2022-07-09] MEDS ORDERED: LORazepam 2 mg/ml vial IM ONE (11:05)
[2022-07-09] MEDS ORDERED: haloperidol lactate 5mg/ml inj IM ONE (11:05)
[2022-07-09] MEDS ORDERED: diphenhydrAMINE 50 mg/ml inj IV ONE (11:05)
--- NOTE | 2022-07-09 11:08 | NUR ---
When behavior of patient next to Rosa began to escalate, Rosa began to yell, "I wanna leave!" over an over, and made attempts to ambulate out of Overflow. Security was called, and an order was obtained for a B52, however, security was able to redirect pt back to her room. Pt currently no longer yelling, so decision was made to hold B52 until needed.
[2022-07-09] MEDS: quetiapine fumarate ER 300mg tablet PO SCH (16:02)
[2022-07-09] MEDS: docusate sod 250mg capsule PO SCH (18:52)
[2022-07-09] MEDS: montelukast 10mg tablet PO SCH (18:53)
[2022-07-09] MEDS: polyethylene glycol 3350 17gm powd pack PO SCH (18:53)
[2022-07-09] MEDS: fluvoxamine 25 MG tablet PO SCH (18:53)
--- NOTE | 2022-07-09 19:00 | NUR ---
Pt put herself into bed. Tech cleaned patient face and gown. Pt was administered her HS meds before she feel asleep.
--- NOTE | 2022-07-09 21:36 | NUR ---
Pt woke up agitated, she ambulated to bathroom where she voided and changed her depends. Pt is raising her voice "I need my morphine." Printed Circuit Board Reworker asked if patient was in pain she said "Yeeees!" Pt's Tylenol 3 was discontinued, will administer Morphine 7.5 mg. Sitter at bedside.
--- NOTE | 2022-07-09 21:56 | NUR ---
Pt was tearful as public relations writer assessed pt's cheek "It huuuurrrts." Administered PRN Morphine. Will continue to monitor.
--- NOTE | 2022-07-09 23:01 | NUR ---
Pt resting comfortably, rr 18 bpm, even and unlabored. Pt's saturation were 89, placed 2LNC increased to 95.
--- NOTE | 2022-07-10 02:16 | NUR ---
Pt woke and is slowly ambulating to the bathroom, sitter at pt's side.
--- NOTE | 2022-07-10 02:54 | NUR ---
Pt requested her dressing be changed r/t "it itches." Dressing changed, pt appears to have fallen back to sleep in her recliner.
--- NOTE | 2022-07-10 03:30 | NUR ---
Pt slightly demanding "I want fooood!" Pt was asked not to yell and have a seat and a snack would be provided. Pt reluctantly complied. Cheese and crackers were given to patient along with a refill of decaf coffee.
--- NOTE | 2022-07-10 04:20 | NUR ---
Pt put herself in bed and is sleeping comfortably. No distress noted, rr even and unlabored.
--- NOTE | 2022-07-10 06:47 | NUR ---
Pt awake ambulating the unit with FWW. Pt is calm.
--- NOTE | 2022-07-10 09:00 | NUR ---
Pt sitting in recliner eating breakfast. Sitter at bedside.
[2022-07-10] MEDS: ziprasidone 20mg capsule PO SCH ×2 (09:06→20:04)
[2022-07-10] MEDS: atorvastatin 10mg tablet PO SCH (09:07)
[2022-07-10] MEDS: vortioxetine HBr tablet 5 MG TABLET PO SCH ×2 (09:07→20:05)
[2022-07-10] MEDS: clonazePAM 0.5mg tablet PO SCH ×3 (09:07→17:00)
[2022-07-10] MEDS: sennosides 8.6mg tablet PO SCH ×2 (09:07→20:05)
[2022-07-10] MEDS: lamoTRIgine 100mg tablet PO SCH ×2 (09:07→20:05)
[2022-07-10] MEDS: multivitamins, therapeutics tablet PO SCH (09:07)
[2022-07-10] MEDS: ferrous sulfate 325mg tablet PO SCH ×2 (09:08→20:05)
[2022-07-10] MEDS: ascorbic acid 500mg tablet PO SCH ×2 (09:09→20:05)
[2022-07-10] MEDS: nicotine 7mg patch - 24hr TD SCH (09:09)
[2022-07-10] MEDS: lactobacillus rhamnosus 10,000 MMU CELLS/CAPSULE PO SCH ×2 (09:10→20:05)
--- NOTE | 2022-07-10 11:00 | NUR ---
Pt standing in her room holding her coffee cup. Pt has intermittent outbursts of "I'm hungry, I haven't eaten in 6 years."
--- NOTE | 2022-07-10 13:45 | NUR ---
Pt put herself in bed, resting comfortably. No distress noted, rr even and unlabored.
--- NOTE | 2022-07-10 16:20 | NUR ---
Pt was in the bathroom and then cried out. Pt was crying "I want to go home." "I am all alone." Pt repeated several times. Certified Ethical Hacker sat and talked with patient. Dressing change completed at bedside. Pt given a cup of fresh decaf coffee.
--- NOTE | 2022-07-10 16:22 | NUR ---
LEFT MESSAGE WITH RAFAEL MCKEON - ASKING FOR AN UPDATE ON PT'S RADIATION TREATMENTS.
--- NOTE | 2022-07-10 16:32 | NUR ---
Pt complianing more and more of pain in the upper part of the tumor.
[2022-07-10] MEDS: polyethylene glycol 3350 17gm powd pack PO SCH (17:00)
[2022-07-10] MEDS: quetiapine fumarate ER 300mg tablet PO SCH (17:00)
--- NOTE | 2022-07-10 19:00 | NUR ---
The patient is up watching TV and is one to one with staff.
[2022-07-10] MEDS: morphine IR (immed. release) 30mg tablet PO PRN (20:04)
[2022-07-10] MEDS: montelukast 10mg tablet PO SCH (20:05)
[2022-07-10] MEDS: fluvoxamine 25 MG tablet PO SCH (20:05)
[2022-07-10] MEDS: docusate sod 250mg capsule PO SCH (20:05)
--- NOTE | 2022-07-10 20:43 | NUR ---
The patient appears to be sleeping. She was cooperative with taking all of her medications. She has her feet elevated. She has been calm.
[2022-07-10] MEDS ORDERED: ziprasidone 20mg capsule PO SCH (21:26)
--- NOTE | 2022-07-10 22:36 | NUR ---
The patient up to use the bathroom
--- NOTE | 2022-07-10 23:51 | NUR ---
The patient appears to be sleeping
--- NOTE | 2022-07-11 01:45 | NUR ---
The patient appears to be sleeping
--- NOTE | 2022-07-11 03:00 | NUR ---
The patient appears to be sleeping. She remains one to one with staff.
--- NOTE | 2022-07-11 05:01 | NUR ---
The patient is awake and walking around by her bed.
--- NOTE | 2022-07-11 06:05 | NUR ---
Patient awake and sitting in her recliner. Patient yelling out. Continue to monitor.
[2022-07-11] MEDS: lactobacillus rhamnosus 10,000 MMU CELLS/CAPSULE PO SCH ×2 (08:40→19:31)
[2022-07-11] MEDS: ziprasidone 20mg capsule PO SCH ×2 (08:41→17:56)
[2022-07-11] MEDS: ascorbic acid 500mg tablet PO SCH ×2 (08:41→19:31)
[2022-07-11] MEDS: clonazePAM 0.5mg tablet PO SCH ×3 (08:41→16:55)
[2022-07-11] MEDS: atorvastatin 10mg tablet PO SCH (08:41)
[2022-07-11] MEDS: multivitamins, therapeutics tablet PO SCH (08:41)
[2022-07-11] MEDS: lamoTRIgine 100mg tablet PO SCH ×2 (08:41→19:31)
[2022-07-11] MEDS: ferrous sulfate 325mg tablet PO SCH ×2 (08:41→19:30)
[2022-07-11] MEDS: vortioxetine HBr tablet 5 MG TABLET PO SCH ×2 (08:41→19:30)
[2022-07-11] MEDS: nicotine 7mg patch - 24hr TD SCH (08:41)
[2022-07-11] MEDS: sennosides 8.6mg tablet PO SCH ×2 (08:41→19:30)
--- NOTE | 2022-07-11 10:06 | NUR ---
pt is up walking around in her room with her walker.
--- NOTE | 2022-07-11 12:12 | NUR ---
Patient eating lunch. No distress observed. Patient is calm. Continue to monitor.
--- NOTE | 2022-07-11 13:10 | NUR ---
Patient taking a little nap. No distress observed. Continue to monitor.
--- NOTE | 2022-07-11 13:40 | NUR ---
Patient awoke from her nap and patient was incontinen of urine and her bottom was wet. Patient's sitter assisted patient in changing and getting her reclining chair clean. Continue to monitor.
--- NOTE | 2022-07-11 15:50 | NUR ---
Patient eating a large snack after fussing and fussing for food. Continue to monitor.
[2022-07-11] MEDS: quetiapine fumarate ER 300mg tablet PO SCH (16:55)
--- NOTE | 2022-07-11 17:31 | NUR ---
Patient was crying for about 20 minutes "I want my life back. I want my life back...." Patient has been here 5 months. RN attempted to console patient, to no avail. Continue to monitor.
--- NOTE | 2022-07-11 19:00 | NUR ---
The patient was tearful and upset. She was stating tearfully "I want my life back" She is one to one with staff. Her speech is garbled. She is complaining of pain and pharmacy was requested to send Morphine dose.
[2022-07-11] MEDS: morphine IR (immed. release) 30mg tablet PO PRN (19:30)
[2022-07-11] MEDS: montelukast 10mg tablet PO SCH (19:30)
[2022-07-11] MEDS: docusate sod 250mg capsule PO SCH (19:30)
[2022-07-11] MEDS: fluvoxamine 25 MG tablet PO SCH (19:30)
[2022-07-11] MEDS: polyethylene glycol 3350 17gm powd pack PO SCH (19:31)
--- NOTE | 2022-07-11 20:35 | NUR ---
The patient took all of her HS medications. She appears to be asleep at this time.
--- NOTE | 2022-07-11 22:02 | NUR ---
The patient appears to be sleeping. She is one to one with staff
--- NOTE | 2022-07-11 23:30 | NUR ---
The patient was up to use the bathroom and is now agitated. She is yelling "I hate you people"
--- NOTE | 2022-07-12 01:01 | NUR ---
The patient is sitting up and drinking coffee
--- NOTE | 2022-07-12 03:09 | NUR ---
The patient is awake and restless. She is yelling at times.
--- NOTE | 2022-07-12 05:05 | NUR ---
The patient continues to be awake, restless and irritable. She is obsessing regarding certain topics.
--- NOTE | 2022-07-12 05:30 | NUR ---
The patient is screaming and try and to leave the unit. She was directed back to her personal space.
[2022-07-12] MEDS ORDERED: ziprasidone IM 20mg inj **IM only ONE (05:34)
[2022-07-12] MEDS ORDERED: ziprasidone IM 20mg inj **IM only IM ONE (05:35)
--- NOTE | 2022-07-12 06:40 | NUR ---
Patient sleeping with Sitter at bedside. No distress observed. Continue to monitor.
--- NOTE | 2022-07-12 07:40 | NUR ---
Patient is not awake and up. Continue to monitor.
[2022-07-12] MEDS: multivitamins, therapeutics tablet PO SCH (08:00)
[2022-07-12] MEDS: ascorbic acid 500mg tablet PO SCH ×3 (08:00→20:03)
[2022-07-12] MEDS: lactobacillus rhamnosus 10,000 MMU CELLS/CAPSULE PO SCH ×3 (08:57→20:02)
[2022-07-12] MEDS: ferrous sulfate 325mg tablet PO SCH ×3 (08:57→20:02)
[2022-07-12] MEDS: ziprasidone 20mg capsule PO SCH ×2 (08:58→18:40)
[2022-07-12] MEDS: clonazePAM 0.5mg tablet PO SCH ×3 (08:58→17:02)
[2022-07-12] MEDS: atorvastatin 10mg tablet PO SCH (08:59)
[2022-07-12] MEDS: lamoTRIgine 100mg tablet PO SCH ×3 (08:59→20:03)
--- NOTE | 2022-07-12 08:59 | NUR ---
Patient yelling in the BR for a new pull up and tech checked patient. The pullup was given toher earlier this morning and it is dry. Patient continues to scream. Continue to monitor.
[2022-07-12] MEDS: sennosides 8.6mg tablet PO SCH ×3 (09:00→20:08)
[2022-07-12] MEDS: vortioxetine HBr tablet 5 MG TABLET PO SCH ×3 (09:01→20:03)
[2022-07-12] MEDS: nicotine 7mg patch - 24hr TD SCH (09:04)
--- NOTE | 2022-07-12 10:32 | NUR ---
Patient was yelling and rude earlier but patient calmed down and is not sitting in her recliner drinking coffee. Continue to monitor.
--- NOTE | 2022-07-12 10:47 | NUR ---
Patient to shower in w/c with sitter. Patient is content. Continue to monitor.
--- NOTE | 2022-07-12 12:16 | NUR ---
Patient eating lunch. No distress observed. Continue to monitor.
--- NOTE | 2022-07-12 14:28 | NUR ---
Patient up and down, being vulgar at times. Continue to monitor.
--- NOTE | 2022-07-12 16:26 | NUR ---
Patient being vulgar and yelling. Patient has not been re-directable. Continue to monitor.
[2022-07-12] MEDS: quetiapine fumarate ER 300mg tablet PO SCH (17:02)
--- NOTE | 2022-07-12 17:22 | NUR ---
Patient yelling and being vulgar. Not redirectable. Continue to monitor.
--- NOTE | 2022-07-12 19:25 | NUR ---
The patient has been agitated since change of shift. She is yelling and swearing at her one to one staff. She was given her Geodon and is calmer at this time.
[2022-07-12] MEDS: montelukast 10mg tablet PO SCH ×2 (20:02→20:21)
[2022-07-12] MEDS: polyethylene glycol 3350 17gm powd pack PO SCH ×2 (20:03→20:21)
[2022-07-12] MEDS: ibuprofen tablet 400 MG TABLET PO PRN (20:03)
[2022-07-12] MEDS: docusate sod 250mg capsule PO SCH ×2 (20:03→20:20)
[2022-07-12] MEDS: fluvoxamine 25 MG tablet PO SCH ×2 (20:03→20:20)
[2022-07-12] MEDS: morphine IR (immed. release) 30mg tablet PO PRN (20:04)
--- NOTE | 2022-07-12 20:28 | NUR ---
The patient continues to be irritable. She refused all of her HS medications but did take Morphine.
--- NOTE | 2022-07-12 21:58 | NUR ---
The patient is sitting her chair she is very irritable and swearing to herself
--- NOTE | 2022-07-12 23:34 | NUR ---
The patient is sitting up in her chair
--- NOTE | 2022-07-13 01:04 | NUR ---
The patient continues to be awake.
[2022-07-13] MEDS ORDERED: ziprasidone IM 20mg inj **IM only IM ONE (01:45)
--- NOTE | 2022-07-13 01:45 | NUR ---
The patient up and screaming "you're a fucking bitch! I want coffee! You slut" She is waking up the other patients MD made aware and orders received.
--- NOTE | 2022-07-13 02:20 | NUR ---
The patient is continue to scream "I want coffee!"
--- NOTE | 2022-07-13 03:00 | NUR ---
The patient appears to be sleeping
--- NOTE | 2022-07-13 05:02 | NUR ---
The patient is awake and walking around her bed.
--- NOTE | 2022-07-13 06:41 | NUR ---
Nurse received pt awake at change of shift. Pt is now sitting in her recliner chair drinking her coffee. No distress noted. Sitter at bedside.
[2022-07-13] MEDS: ziprasidone 20mg capsule PO SCH ×2 (08:00→17:41)
[2022-07-13] MEDS: lactobacillus rhamnosus 10,000 MMU CELLS/CAPSULE PO SCH ×2 (08:00→20:38)
[2022-07-13] MEDS: clonazePAM 0.5mg tablet PO SCH ×3 (08:00→16:17)
[2022-07-13] MEDS: atorvastatin 10mg tablet PO SCH (08:00)
[2022-07-13] MEDS: sennosides 8.6mg tablet PO SCH ×2 (08:00→20:37)
[2022-07-13] MEDS: ferrous sulfate 325mg tablet PO SCH ×2 (08:00→20:38)
[2022-07-13] MEDS: vortioxetine HBr tablet 5 MG TABLET PO SCH ×2 (08:00→20:38)
[2022-07-13] MEDS: lamoTRIgine 100mg tablet PO SCH ×2 (08:01→20:38)
[2022-07-13] MEDS: ascorbic acid 500mg tablet PO SCH ×2 (08:01→20:38)
[2022-07-13] MEDS: nicotine 7mg patch - 24hr TD SCH (08:01)
[2022-07-13] MEDS: multivitamins, therapeutics tablet PO SCH (08:01)
--- NOTE | 2022-07-13 08:43 | NUR ---
Pt. eating breakfast. Sitter at bedside. 1:1 done at bedside and medications administered. It took several attempts to have pt. swallow her medications, she believed she had already taken them. She repeatedely stated, morphine, morphine, 3X brennon taken morphine this morning." Pt does not even take morphine. Denied pain.
--- NOTE | 2022-07-13 10:21 | NUR ---
Pt utilized restroom, pt had a medium formed BM. Pt demanding to have a shower. Pt told she had a shower yesterday and was offered to have a sponge bath.
--- NOTE | 2022-07-13 10:50 | NUR ---
Pt sleeping in her chair, noted rise and fall of chest.
--- NOTE | 2022-07-13 12:00 | NUR ---
1200 medications held due to pt. sleeping.
--- NOTE | 2022-07-13 12:44 | NUR ---
Pt awake and eating breakfast.
--- NOTE | 2022-07-13 13:00 | NUR ---
Pt sitting in chair with legs elevated.
[2022-07-13] MEDS: morphine IR (immed. release) 30mg tablet PO PRN (14:39)
--- NOTE | 2022-07-13 14:44 | NUR ---
Pt requested PRN morphine for back pain of 6/10. Medication administered.
--- NOTE | 2022-07-13 14:57 | NUR ---
Selina from [facility] is at bedside with a nurse from the Department of Developmental Services speaking with Pt. regarding placement options.
--- NOTE | 2022-07-13 15:24 | NUR ---
Wound nurse performing wound care to facial wound. Pt cooperative. Wound dressed with xeroform and paper tape. Wound above left eyebrow to stay open to air. Supplies left in clean utility.
[2022-07-13] MEDS: quetiapine fumarate ER 300mg tablet PO SCH (16:17)
--- NOTE | 2022-07-13 17:37 | NUR ---
Pt sitting in chair watching tv. Pt was heard crying earlier but wouldnt say why. No distress noted.
--- NOTE | 2022-07-13 17:56 | NUR ---
Pt eating dinner at bedside.
--- NOTE | 2022-07-13 18:30 | NUR ---
Patient standing up near bed, eating some dinner. Calm and cooperative at this time. Will continue to monitor.
[2022-07-13] MEDS: fluvoxamine 25 MG tablet PO SCH (20:37)
[2022-07-13] MEDS: docusate sod 250mg capsule PO SCH (20:37)
[2022-07-13] MEDS: polyethylene glycol 3350 17gm powd pack PO SCH (20:37)
[2022-07-13] MEDS: clonazePAM 0.5mg tablet PO PRN (20:38)
[2022-07-13] MEDS: montelukast 10mg tablet PO SCH (20:38)
[2022-07-13] MEDS: acetaminophen 325mg tablet PO PRN (20:39)
--- NOTE | 2022-07-13 21:30 | NUR ---
Patient is standing up near bed. Calm/cooperative. Was compliant with HS meds. Gave PRN Tylenol for back pain and Klonopin for agitation earlier. Noted positive results as she is more calm and not agitated.
--- NOTE | 2022-07-13 22:00 | NUR ---
Farzana's sitter arrived.
--- NOTE | 2022-07-13 23:00 | NUR ---
Patient getting agitated again about showering. Staff was able to get patient into shower which made her happy. Returned from shower. This nurse removed wet dressed and replaced xeroform and a tegaderm to left face.
--- NOTE | 2022-07-14 00:30 | NUR ---
Patient awake still. Appears to be tired. Sitting up in recliner at this time. Will continue to provide a quiet and peaceful space. Will continue to monitor.
--- NOTE | 2022-07-14 01:44 | NUR ---
Patient fell asleep up in recliner for a short time and is now awake. Is currently pleasant/calm, mumbling under breath. Will continue to monitor.
--- NOTE | 2022-07-14 02:25 | NUR ---
Patient still awake & alert. Requested something to help patient sleep from MD. ER MD recommends to allow patient to just be, since she's calm and relaxed. Will continue to monitor.
--- NOTE | 2022-07-14 05:05 | NUR ---
Patient has been awake the entire shift except for maybe 30 minutes. Patient is pleasant and cooperative. Got her a fresh cup of coffee. Noted that redirection is beneficial. Staff avoided arguments as the shift progressed by doing this. Will continue to monitor.
[2022-07-14] MEDS: clonazePAM 0.5mg tablet PO SCH ×3 (08:19→16:31)
[2022-07-14] MEDS: atorvastatin 10mg tablet PO SCH (08:19)
[2022-07-14] MEDS: lamoTRIgine 100mg tablet PO SCH ×2 (08:19→20:00)
[2022-07-14] MEDS: ferrous sulfate 325mg tablet PO SCH ×2 (08:19→20:00)
[2022-07-14] MEDS: lactobacillus rhamnosus 10,000 MMU CELLS/CAPSULE PO SCH ×2 (08:19→20:00)
[2022-07-14] MEDS: sennosides 8.6mg tablet PO SCH ×2 (08:19→20:00)
[2022-07-14] MEDS: multivitamins, therapeutics tablet PO SCH (08:19)
[2022-07-14] MEDS: ziprasidone 20mg capsule PO SCH ×2 (08:19→18:07)
[2022-07-14] MEDS: ascorbic acid 500mg tablet PO SCH ×2 (08:20→20:00)
[2022-07-14] MEDS: nicotine 7mg patch - 24hr TD SCH (08:20)
[2022-07-14] MEDS: vortioxetine HBr tablet 5 MG TABLET PO SCH ×2 (08:20→20:00)
[2022-07-14] MEDS ORDERED: SULF-14 PO (16:21)
[2022-07-14] MEDS ORDERED: ZOLP5TAB8 PO (16:21)
[2022-07-14] MEDS ORDERED: GABA600T13 PO (16:21)
[2022-07-14] MEDS ORDERED: FAMO20TA8 PO (16:21)
[2022-07-14] MEDS ORDERED: LEVE10006 PO (16:21)
[2022-07-14] MEDS ORDERED: BENZ2TAB66 PO (16:21)
[2022-07-14] MEDS ORDERED: QUET25TA PO (16:21)
[2022-07-14] MEDS ORDERED: COLL30OI TOP (16:21)
[2022-07-14] MEDS ORDERED: OMEP40CA21 PO (16:21)
[2022-07-14] MEDS ORDERED: LISI20TA28 PO (16:21)
[2022-07-14] MEDS ORDERED: MELA5TAB21 PO (16:21)
[2022-07-14] MEDS ORDERED: PALI234D IM (16:21)
[2022-07-14] MEDS ORDERED: SYN0.088T PO (16:21)
[2022-07-14] MEDS ORDERED: OLAN5TAB5 PO (16:21)
[2022-07-14] MEDS: quetiapine fumarate ER 300mg tablet PO SCH (16:31)
[2022-07-14] MEDS: montelukast 10mg tablet PO SCH (21:00)
[2022-07-14] MEDS: polyethylene glycol 3350 17gm powd pack PO SCH (21:00)
[2022-07-14] MEDS: docusate sod 250mg capsule PO SCH (21:00)
[2022-07-14] MEDS: fluvoxamine 25 MG tablet PO SCH (21:00)
--- NOTE | 2022-07-15 06:51 | NUR ---
Patient was awake interacting appropriately with sitter. Patient is now resting comfortably.
[2022-07-15] MEDS: ziprasidone 20mg capsule PO SCH ×2 (08:13→18:10)
[2022-07-15] MEDS: vortioxetine HBr tablet 5 MG TABLET PO SCH ×2 (08:13→20:32)
[2022-07-15] MEDS: nicotine 7mg patch - 24hr TD SCH (08:14)
[2022-07-15] MEDS: ferrous sulfate 325mg tablet PO SCH ×2 (08:14→20:33)
[2022-07-15] MEDS: sennosides 8.6mg tablet PO SCH ×2 (08:14→20:33)
[2022-07-15] MEDS: clonazePAM 0.5mg tablet PO SCH ×3 (08:14→16:39)
[2022-07-15] MEDS: multivitamins, therapeutics tablet PO SCH (08:15)
[2022-07-15] MEDS: ascorbic acid 500mg tablet PO SCH ×2 (08:15→20:33)
[2022-07-15] MEDS: lamoTRIgine 100mg tablet PO SCH ×2 (08:15→20:33)
[2022-07-15] MEDS: atorvastatin 10mg tablet PO SCH (08:18)
[2022-07-15] MEDS: lactobacillus rhamnosus 10,000 MMU CELLS/CAPSULE PO SCH ×2 (08:29→20:50)
--- NOTE | 2022-07-15 09:13 | NUR ---
Patient took medications without incident in applesauce. Patient is eating breakfast, and appears to be comfortable at this time.
[2022-07-15] MEDS: morphine IR (immed. release) 30mg tablet PO PRN (10:38)
--- NOTE | 2022-07-15 11:10 | NUR ---
Patient got up to the restroom, but wanted to use her wheelchair. Patient complains of 8/10 generalized pain and pain from her feet which are edematous. Patient resting in chair with feet elevated. Patient keeps wanting lunch, and has to be redirected frequently.
--- NOTE | 2022-07-15 11:13 | NUR ---
Morphine 30 mg p.o. given for pain.
[2022-07-15] MEDS: clonazePAM 0.5mg tablet PO PRN (14:25)
--- NOTE | 2022-07-15 14:28 | NUR ---
Patient is agitated, wanting Dr. Diaz and food. Aid at bedside playing music for patient making a peaceful environment. Klonopin 1 mg given for agitation.
[2022-07-15] MEDS: quetiapine fumarate ER 300mg tablet PO SCH (16:39)
--- NOTE | 2022-07-15 19:30 | NUR ---
Pt is yelling in room, c/o of having sutures and xena in here feet, "I had surgery, ask the doctor". Pt finally got up and used walker to get to Bathroom. Pt peed on floor in bathroom before sitting on toilet. Pt cleaned up and new depends placed with new pants and socks. Sitter at bedside.
[2022-07-15] MEDS ORDERED: diazepam inj 5 MG/ML inj. IM STA (19:47)
--- NOTE | 2022-07-15 20:30 | NUR ---
Pt holloring in [facility], yelling for food and that it's sunday morning. Orders obtained for Valium 10 mg Im, given at 2000. Pt encouraged to sit down so medication takes effect.
[2022-07-15] MEDS: docusate sod 250mg capsule PO SCH (20:32)
[2022-07-15] MEDS: fluvoxamine 25 MG tablet PO SCH (20:33)
[2022-07-15] MEDS: montelukast 10mg tablet PO SCH (20:33)
[2022-07-15] MEDS: polyethylene glycol 3350 17gm powd pack PO SCH (20:34)
--- NOTE | 2022-07-15 22:30 | NUR ---
Pt sitting u in chair in room 15, asleep. RR even and unlabored, pt in NAD.
--- NOTE | 2022-07-15 23:59 | NUR ---
Pt asleep in chair, RR even and unlabored. Pt in NAD.
[2022-07-16] MEDS: morphine IR (immed. release) 30mg tablet PO PRN ×2 (02:33→19:15)
--- NOTE | 2022-07-16 02:36 | NUR ---
Pt c/o pain in feet and side of face, 10/02. Morphine IR 7.5mg po. Pt sitting up eating a sandwich.
[2022-07-16] MEDS: clonazePAM 0.5mg tablet PO PRN ×3 (03:05→19:00)
--- NOTE | 2022-07-16 03:12 | NUR ---
pt becoming agitated. Klonopin 1mg given.
[2022-07-16] MEDS ORDERED: ketamine 50 mg/ml 10ml vial IM ONE (05:00)
--- NOTE | 2022-07-16 05:16 | NUR ---
pulse ox placed on pt 89-90% RA, will place her on oxygen 2Lnc
--- NOTE | 2022-07-16 05:27 | NUR ---
Pt sats 92-93% now, pt resting.
--- NOTE | 2022-07-16 06:15 | NUR ---
Pt sleeping, RR even and unlabored, in NAD.
--- NOTE | 2022-07-16 06:45 | NUR ---
Patient brought over in her bed. Patient is very drowsy due to I.M. medication given just after 0500. Patient falling back asleep once she settled in. Continue to monitor.
--- NOTE | 2022-07-16 08:23 | NUR ---
Patient eating breakfast slowly with the assistance of the sitter. No distress observed. Continue to monitor.
[2022-07-16] MEDS: ascorbic acid 500mg tablet PO SCH ×2 (08:56→20:05)
[2022-07-16] MEDS: lamoTRIgine 100mg tablet PO SCH ×2 (08:56→20:00)
[2022-07-16] MEDS: ferrous sulfate 325mg tablet PO SCH ×2 (08:56→20:05)
[2022-07-16] MEDS: vortioxetine HBr tablet 5 MG TABLET PO SCH ×2 (08:56→20:00)
[2022-07-16] MEDS: atorvastatin 10mg tablet PO SCH (08:56)
[2022-07-16] MEDS: lactobacillus rhamnosus 10,000 MMU CELLS/CAPSULE PO SCH ×2 (08:56→20:05)
[2022-07-16] MEDS: ziprasidone 20mg capsule PO SCH ×2 (08:56→19:00)
[2022-07-16] MEDS: sennosides 8.6mg tablet PO SCH ×2 (08:56→20:05)
[2022-07-16] MEDS: multivitamins, therapeutics tablet PO SCH (08:56)
[2022-07-16] MEDS: clonazePAM 0.5mg tablet PO SCH ×3 (08:57→16:11)
[2022-07-16] MEDS: nicotine 7mg patch - 24hr TD SCH (08:57)
--- NOTE | 2022-07-16 09:25 | NUR ---
Patient ambulatory with assist to the BR. Patient was able to urinate in the toilet. Patient back to her bed. Continue to monitor.
--- NOTE | 2022-07-16 10:48 | NUR ---
Patient sitting in her recliner. No distress observed. Continue to monitor.
[2022-07-16] MEDS: quetiapine fumarate ER 300mg tablet PO SCH (16:11)
[2022-07-16] MEDS: fluvoxamine 25 MG tablet PO SCH (20:00)
[2022-07-16] MEDS: docusate sod 250mg capsule PO SCH (20:05)
[2022-07-16] MEDS: montelukast 10mg tablet PO SCH (20:05)
[2022-07-16] MEDS: polyethylene glycol 3350 17gm powd pack PO SCH (21:00)
--- NOTE | 2022-07-16 21:00 | NUR ---
Pt awake at start of shift. Some periods of yelling out. Given Morphine per pt request by yelling out "I want Morphine" over and over. Pt took all meds and is sleeping at this time.
--- NOTE | 2022-07-16 23:39 | NUR ---
Sitter assisting pt to BR. She has been sleeping quietly for several hours.
--- NOTE | 2022-07-17 02:22 | NUR ---
Pt sleeping at this time sitter at bedside.
--- NOTE | 2022-07-17 04:14 | NUR ---
Drsing change to large growth on right side of face. Growth beefy red no drainage.
--- NOTE | 2022-07-17 06:40 | NUR ---
Patient is awake in her room with the sitter. Fussing a little. Continue to monitor.
--- NOTE | 2022-07-17 07:45 | NUR ---
0730 Patient screaming for food. RN advises patient that the food comes in about 30 minutes. Patient does not believe RN and believes everybody received their breakfast except her. RN advises patient that if the food were here she would have her breakfast. 0745 Breakfast came early. Patient screamed until breakfast arrived and patient was quiet as soon as her breakfast tray was in front of her. Continue to monitor.
[2022-07-17] MEDS: lactobacillus rhamnosus 10,000 MMU CELLS/CAPSULE PO SCH ×2 (08:35→22:19)
[2022-07-17] MEDS: lamoTRIgine 100mg tablet PO SCH ×2 (08:35→22:08)
[2022-07-17] MEDS: sennosides 8.6mg tablet PO SCH ×2 (08:35→22:19)
[2022-07-17] MEDS: ziprasidone 20mg capsule PO SCH ×2 (08:35→17:42)
[2022-07-17] MEDS: ferrous sulfate 325mg tablet PO SCH ×2 (08:35→22:20)
[2022-07-17] MEDS: multivitamins, therapeutics tablet PO SCH (08:35)
[2022-07-17] MEDS: atorvastatin 10mg tablet PO SCH (08:35)
[2022-07-17] MEDS: vortioxetine HBr tablet 5 MG TABLET PO SCH ×2 (08:35→22:08)
[2022-07-17] MEDS: ascorbic acid 500mg tablet PO SCH ×2 (08:35→22:20)
[2022-07-17] MEDS: nicotine 7mg patch - 24hr TD SCH (08:36)
[2022-07-17] MEDS: clonazePAM 0.5mg tablet PO SCH ×4 (09:00→22:08)
[2022-07-17 09:16] LABS: BASOPHILS % (AUTO) 0.3 % (0-1); EOSINOPHILS # (AUTO) 0.2 X10'3 (0-0.9); HEMATOCRIT 39.1 % (35.0-45.0); HEMOGLOBIN 12.6 g/dl (12.0-16.0); LYMPHOCYTES # (AUTO) 1.2 X10'3 (1.1-4.8); MEAN CORPUSCULAR HEMOGLOBIN 28.1 PG (27.0-31.0); MEAN CORPUSCULAR HGB CONC 32.2 g/dL (33.0-36.5); MEAN CORPUSCULAR VOLUME 87.2 FL (78-98); MEAN PLATELET VOLUME 8.5 FL (7.4-10.4); MONOCYTES # (AUTO) 0.4 X10'3 (0-0.9); MONOCYTES % (AUTO) 8.8 % (2-12); NEUTROPHILS # (AUTO) 3.1 X10'3 (1.8-7.7); NEUTROPHILS % (AUTO) 62.9 % (42-75); PLATELET COUNT 152 X10'3 (140-440); RED BLOOD COUNT 4.49 X10'6 (4.20-5.60); RED CELL DISTRIBUTION WIDTH 13.3 % (11.5-14.5); WHITE BLOOD COUNT 4.9 X10'3 (4.5-11.0)
--- NOTE | 2022-07-17 09:20 | NUR ---
Patient asking for a shower. RN advised patient that as soon as staff is able they will give her a shower. Continue to monitor.
[2022-07-17 09:29] LABS: ALANINE AMINOTRANSFERASE 28 U/L (12-78); ALBUMIN 3.5 G/DL (3.4-5.0); ALBUMIN/GLOBULIN RATIO 0.9 (1.1-1.5); ALKALINE PHOSPHATASE 61 IU/L (46-116); ANION GAP 5 (8-16); ASPARTATE AMINO TRANSFERASE 15 U/L (10-37); BILIRUBIN,TOTAL 0.2 MG/DL (0.1-1.0); BLOOD UREA NITROGEN 23 MG/DL (7-18); BUN/CREATININE RATIO 39.7 (10.0-20.0); CALCIUM 9.1 MG/DL (8.5-10.1); CHLORIDE 102 MMOL/L (99-107); CREATININE 0.58 MG/DL (0.40-0.90); GLUCOSE 96 MG/DL (70-104); POTASSIUM 3.9 MMOL/L (3.5-5.1); SODIUM 140 MMOL/L (135-145); TOTAL CARBON DIOXIDE 33.2 MMOL/L (24-32); TOTAL PROTEIN 7.5 G/DL (6.4-8.2); eGFR > 90 ML/MIN
--- NOTE | 2022-07-17 11:03 | NUR ---
Patient just got back from her shower. Her hair is being braided and RN will place Nystatin powder on patient's pannus and place a clean dressing on her face. No distress observed at this time. Continue to monitor.
--- NOTE | 2022-07-17 12:06 | NUR ---
Patient eating lunch. No distress observed. Continue to monitor.
--- NOTE | 2022-07-17 13:50 | NUR ---
Patient states it's an emergency and I need to talk to my mom. RN asked patient to please give her a break. Patient states "Some param is trying to kill my dog! My mom will confirm this as soon as she gets here." RN advises patient that there is nobody attempting to kill her dog and her mom would have told me when she was here. Patient went back to her room to lay down. Continue to monitor.
--- NOTE | 2022-07-17 14:25 | NUR ---
Patient's [facility] RN Selina Monroy brought patient a pair of shoes specifically made for lower ext edema. Patient is very happy about her new shoes and smiling from ear to ear. Continue to monitor.
--- NOTE | 2022-07-17 15:30 | NUR ---
Patient called RN to the BR. Patient stated she didn't make it to the BR. The floor her pants and her new shoes are full of urine. RN cleaned up patient and the floor. RN washed patient's shoes in the sink with warm soapy water and placed them in Room 27 to dry (after drying with a towel). Patient crying for her shoes. Continue to monitor.
--- NOTE | 2022-07-17 17:00 | NUR ---
Patient upset about not having her shoes. Patient attempted to walk out and patient walker past the curtain. When RN and Tech went to assist her back to Overflow patient weighted herself to the floor. RN and tech made sure she was safe. RN and tech attempted to stand patient up, to no avail. RN called ED Security to assist patient in standing up. Continue to monitor.
[2022-07-17] MEDS: quetiapine fumarate ER 300mg tablet PO SCH (17:42)
[2022-07-17] MEDS: ibuprofen tablet 400 MG TABLET PO PRN (17:44)
--- NOTE | 2022-07-17 18:59 | NUR ---
Pt started out yelling how she needs a shower, pt was redirected and explained she already had a shower. Pt is reminded that it is night time and can have a shower in the morning. Dorian Osborne is here. RR even and unlabored.
--- NOTE | 2022-07-17 21:15 | NUR ---
Pt was in bed asleep, woke up incontinent. Pt was cleaned up and given fresh clothes. Pt continues to yell for food and how she doesn't belong here.
[2022-07-17] MEDS: docusate sod 250mg capsule PO SCH (22:08)
[2022-07-17] MEDS: fluvoxamine 25 MG tablet PO SCH (22:19)
[2022-07-17] MEDS: montelukast 10mg tablet PO SCH (22:19)
[2022-07-17] MEDS: polyethylene glycol 3350 17gm powd pack PO SCH (22:20)
[2022-07-17] MEDS: morphine IR (immed. release) 30mg tablet PO PRN (22:29)
[2022-07-17] MEDS ORDERED: diazepam inj 5 MG/ML inj. IM ONE (23:30)
--- NOTE | 2022-07-17 23:40 | NUR ---
pT YELLING FOR FOOD ANDM THAT SHE WANTS TO GO HOME. uNABLE TO REDIRECT. VALIUM 10MG IM GIVEN LEFT DELTOID. PT UP IN HER CHAIR, SITTER AT BEDSIDE.
--- NOTE | 2022-07-18 00:43 | NUR ---
Pt is resting in assigned bed, RR even and unlabored, pt in NAD. Monitor for safety.
--- NOTE | 2022-07-18 04:09 | NUR ---
Pt was up yelling about her new shoes she got today. Creative Manager tried to explain they were drying after getting soileds during the day. Pt finally calmed down and went to sleep in her chair. RR even and unlabored.
--- NOTE | 2022-07-18 06:30 | NUR ---
Patient awake and alert and walking around. Patient has some black shoes on that area not hers. They are very tight on her feet. RN went back to room 27 to get the shoes (for edema). They were dry and tech placed on Rosa's feet. Patient was happy. RN took the canvas shoes and hid the patient because she wants them also but they are too tight on her feet. Continue to monitor.
--- NOTE | 2022-07-18 07:40 | NUR ---
Patient screaming for a shower. RN advises patient that she may shower after breakfast. Patient then goes into the BR and starts washing herself using the sink. Continue to monitor.
[2022-07-18] MEDS: atorvastatin 10mg tablet PO SCH (08:06)
[2022-07-18] MEDS: ibuprofen tablet 400 MG TABLET PO PRN (08:06)
[2022-07-18] MEDS: ferrous sulfate 325mg tablet PO SCH ×2 (08:07→20:08)
[2022-07-18] MEDS: ascorbic acid 500mg tablet PO SCH ×2 (08:07→20:08)
[2022-07-18] MEDS: multivitamins, therapeutics tablet PO SCH (08:07)
[2022-07-18] MEDS: sennosides 8.6mg tablet PO SCH ×2 (08:07→20:08)
[2022-07-18] MEDS: lactobacillus rhamnosus 10,000 MMU CELLS/CAPSULE PO SCH ×2 (08:07→20:08)
[2022-07-18] MEDS: ziprasidone 20mg capsule PO SCH ×2 (08:07→18:16)
[2022-07-18] MEDS: lamoTRIgine 100mg tablet PO SCH ×2 (08:07→20:08)
[2022-07-18] MEDS: vortioxetine HBr tablet 5 MG TABLET PO SCH ×2 (08:07→20:08)
[2022-07-18] MEDS: nicotine 7mg patch - 24hr TD SCH (08:10)
--- NOTE | 2022-07-18 08:25 | NUR ---
Patient eating breakfast. No distress observed. Continue to monitor.
--- NOTE | 2022-07-18 09:10 | NUR ---
Patient sleeping in the recliner. No distress observed. Continue to monitor.
--- NOTE | 2022-07-18 11:03 | NUR ---
Patient up and walking around with sitter at side. No distress observed. Continue to monitor.
[2022-07-18] MEDS: clonazePAM 0.5mg tablet PO SCH ×2 (12:00→18:17)
--- NOTE | 2022-07-18 12:22 | NUR ---
Patient eating lunch. No distress observed. Continue to monitor.
--- NOTE | 2022-07-18 14:00 | NUR ---
Patient attempting to leave and walked out to the office area. Patient went to the ground (slowly) and is weight. Patient won't get up and needed Security and staff to get patient standing and back to her bed. Continue to monitor.
--- NOTE | 2022-07-18 15:55 | NUR ---
Patient sleeping in the bed. No distress observed. Continue to monitor.
--- NOTE | 2022-07-18 17:22 | NUR ---
Patient eating dinner. No distress observed. Continue to monitor.
[2022-07-18] MEDS: quetiapine fumarate ER 300mg tablet PO SCH (18:15)
[2022-07-18] MEDS: HYDROcodone/acetaminophen 5mg/325mg tablet PO PRN (18:16)
--- NOTE | 2022-07-18 19:45 | NUR ---
The patient has been quiet and cooperative. She is one to one with her staff member who took her off the unit for a shower.
[2022-07-18] MEDS: docusate sod 250mg capsule PO SCH (20:08)
[2022-07-18] MEDS: montelukast 10mg tablet PO SCH (20:08)
[2022-07-18] MEDS: fluvoxamine 25 MG tablet PO SCH (20:08)
[2022-07-18] MEDS: polyethylene glycol 3350 17gm powd pack PO SCH (20:08)
--- NOTE | 2022-07-18 20:23 | NUR ---
The patient took all of her HS medications. She is currently up to use the bathroom. She has one to one staffing.
--- NOTE | 2022-07-18 22:09 | NUR ---
The patient is becoming irritable and asking about why her dinner tray that came over 5 hours ago was not at the bedside. She is being redirected by her staff and was given a snack.
--- NOTE | 2022-07-18 23:27 | NUR ---
The patient appears to be sleeping
--- NOTE | 2022-07-19 00:40 | NUR ---
The patient is yelling and trying to leave the unit consistently
[2022-07-19] MEDS: HYDROcodone/acetaminophen 5mg/325mg tablet PO PRN ×3 (01:28→20:06)
--- NOTE | 2022-07-19 01:31 | NUR ---
The patient up to the nursing station asking for pain medication. [place] given.
--- NOTE | 2022-07-19 02:55 | NUR ---
The patient appears to be sleeping
--- NOTE | 2022-07-19 05:52 | NUR ---
The patient is up to the nursing station asking to go to the Casino here at [facility]. She was made aware that there was not a casino here.
--- NOTE | 2022-07-19 08:00 | NUR ---
Pt.'s sitter left and pt. sitting at bed eating breakfast. Pt. took all AM medications.
[2022-07-19] MEDS: ziprasidone 20mg capsule PO SCH ×2 (08:05→17:29)
[2022-07-19] MEDS: ascorbic acid 500mg tablet PO SCH ×2 (08:05→20:06)
[2022-07-19] MEDS: clonazePAM 0.5mg tablet PO SCH ×3 (08:05→17:03)
[2022-07-19] MEDS: sennosides 8.6mg tablet PO SCH ×2 (08:06→20:06)
[2022-07-19] MEDS: multivitamins, therapeutics tablet PO SCH (08:06)
[2022-07-19] MEDS: vortioxetine HBr tablet 5 MG TABLET PO SCH ×2 (08:06→20:06)
[2022-07-19] MEDS: atorvastatin 10mg tablet PO SCH (08:06)
[2022-07-19] MEDS: ferrous sulfate 325mg tablet PO SCH ×2 (08:06→20:05)
[2022-07-19] MEDS: lamoTRIgine 100mg tablet PO SCH ×2 (08:06→20:05)
[2022-07-19] MEDS: lactobacillus rhamnosus 10,000 MMU CELLS/CAPSULE PO SCH ×2 (08:06→20:06)
[2022-07-19] MEDS: nicotine 7mg patch - 24hr TD SCH (08:12)
--- NOTE | 2022-07-19 09:00 | NUR ---
New sitter arrived. Pt. finishing breakfast.
--- NOTE | 2022-07-19 10:30 | NUR ---
Pt. asleep in her chair. Respirations 18, even and unlabored.
[2022-07-19] MEDS: ibuprofen tablet 400 MG TABLET PO PRN ×2 (11:08→20:05)
--- NOTE | 2022-07-19 12:30 | NUR ---
Pt. toileted with standby assist. pt. needs assistance getting on and off the toilet due to weakness. Pt. sitting in her chair eating lunch.
[2022-07-19] MEDS: quetiapine fumarate ER 300mg tablet PO SCH (16:13)
--- NOTE | 2022-07-19 16:30 | NUR ---
Pt. awake and talking with her father on the phone who called to wish her a happy birthday.
--- NOTE | 2022-07-19 18:20 | NUR ---
Pt. awake and standing at nurses station eating a cupcake. 1:1 is next to her.
--- NOTE | 2022-07-19 18:58 | NUR ---
The patient up on the unit with her one to one staff. She has had one brief period of agitation about trying to find an article of clothing that she doesn't have here on the unit. Staff redirected her to other activities ie having one of her birthday cupcakes. She currently is working on hygiene activities.
[2022-07-19] MEDS: fluvoxamine 25 MG tablet PO SCH (20:04)
[2022-07-19] MEDS: polyethylene glycol 3350 17gm powd pack PO SCH (20:04)
[2022-07-19] MEDS: montelukast 10mg tablet PO SCH (20:05)
[2022-07-19] MEDS: docusate sod 250mg capsule PO SCH (20:06)
--- NOTE | 2022-07-19 20:46 | NUR ---
The patient was cooperative with taking all of her medications. She is currently sitting in her chair with her feet elevated to watch TV.
--- NOTE | 2022-07-19 21:43 | NUR ---
The patient appears to be sleeping
--- NOTE | 2022-07-19 22:48 | NUR ---
The patient appears to be sleeping
--- NOTE | 2022-07-20 01:21 | NUR ---
The patient is awake and walking around by her bed. She remains one to one with staff.
--- NOTE | 2022-07-20 03:08 | NUR ---
The patient is awake and having a shower.
--- NOTE | 2022-07-20 05:01 | NUR ---
The patient is awake and talking with her sitter.
--- NOTE | 2022-07-20 06:30 | NUR ---
Pt is awake, sitter in attendance.
[2022-07-20] MEDS: ziprasidone 20mg capsule PO SCH ×2 (07:16→17:03)
[2022-07-20] MEDS: lactobacillus rhamnosus 10,000 MMU CELLS/CAPSULE PO SCH ×2 (07:16→20:02)
[2022-07-20] MEDS: ferrous sulfate 325mg tablet PO SCH ×2 (07:16→20:03)
[2022-07-20] MEDS: lamoTRIgine 100mg tablet PO SCH ×2 (07:17→20:03)
[2022-07-20] MEDS: multivitamins, therapeutics tablet PO SCH (07:17)
[2022-07-20] MEDS: atorvastatin 10mg tablet PO SCH (07:17)
[2022-07-20] MEDS: clonazePAM 0.5mg tablet PO SCH ×3 (07:17→17:03)
[2022-07-20] MEDS: ascorbic acid 500mg tablet PO SCH ×2 (07:17→20:03)
[2022-07-20] MEDS: sennosides 8.6mg tablet PO SCH ×2 (07:17→20:03)
[2022-07-20] MEDS: vortioxetine HBr tablet 5 MG TABLET PO SCH ×2 (07:17→20:02)
[2022-07-20] MEDS: nicotine 7mg patch - 24hr TD SCH (07:23)
--- NOTE | 2022-07-20 08:14 | NUR ---
New sitter arrived. Pt is sitting in her gerichair eating breakfast.
--- NOTE | 2022-07-20 09:38 | NUR ---
Pt is ambulating around the unit with FWW accompanied by sitter.
--- NOTE | 2022-07-20 10:28 | NUR ---
Pt removed her dressing.
--- NOTE | 2022-07-20 10:58 | NUR ---
Pt is yelling at her sitter that she wants more food and coffee.
--- NOTE | 2022-07-20 11:18 | NUR ---
Pt is yelling that she is starving, that she didn't have breakfast. Snacks were provided since the last time she complained of hunger. Pt encouraged to wait for lunch.
--- NOTE | 2022-07-20 11:33 | NUR ---
Pt was provided with some fresh milk.
--- NOTE | 2022-07-20 13:54 | NUR ---
Marleny is assisting pt with changing her brief in the bathroom.
--- NOTE | 2022-07-20 14:23 | NUR ---
Wound care nurse called to report that she is unable to come see the patient today, she will see her tomorrow.
--- NOTE | 2022-07-20 14:37 | NUR ---
Applied a new dressing to left side of pt's face.
[2022-07-20] MEDS: quetiapine fumarate ER 300mg tablet PO SCH (15:04)
--- NOTE | 2022-07-20 16:12 | NUR ---
Neville carlson arrived for pt.
--- NOTE | 2022-07-20 16:20 | NUR ---
Pt escorted to the shower by sitter/caregiver and security via wheelchair.
--- NOTE | 2022-07-20 16:49 | NUR ---
Pt is back on the unit after her shower.
--- NOTE | 2022-07-20 18:47 | NUR ---
The patient slightly agitated. She attempted to walk off the unit and asked where she was going she stated that she was conducting an experiment to see how far she could go before staff intervened. She also was yelling out about "The whole neighborood got together and bought sugar free donuts" and was demanding to know where they went. She remains one to one with her staff. She is currently eating her dinner.
[2022-07-20] MEDS: ibuprofen tablet 400 MG TABLET PO PRN (20:02)
[2022-07-20] MEDS: HYDROcodone/acetaminophen 5mg/325mg tablet PO PRN (20:02)
[2022-07-20] MEDS: docusate sod 250mg capsule PO SCH (20:02)
[2022-07-20] MEDS: fluvoxamine 25 MG tablet PO SCH (20:02)
[2022-07-20] MEDS: montelukast 10mg tablet PO SCH (20:03)
[2022-07-20] MEDS: polyethylene glycol 3350 17gm powd pack PO SCH (20:03)
--- NOTE | 2022-07-20 20:52 | NUR ---
The patient appears to be sleeping
--- NOTE | 2022-07-20 22:00 | NUR ---
The patient appears to be sleeping
--- NOTE | 2022-07-21 00:12 | NUR ---
The patient up to use the bathroom. She is currently sitting up in her chair.
--- NOTE | 2022-07-21 01:57 | NUR ---
The patient is awake and standing by her bed. She appears very tired but will not lay down.
--- NOTE | 2022-07-21 03:01 | NUR ---
The patient appears to be sleeping
--- NOTE | 2022-07-21 05:49 | NUR ---
The patient is awake, drinking coffee and sitting on her bed.
--- NOTE | 2022-07-21 07:45 | NUR ---
Pt lying on her bed on her back resting with her eyes closed with her feet elavated.
--- NOTE | 2022-07-21 09:00 | NUR ---
Pt up to the bathroom with FWW.
--- NOTE | 2022-07-21 09:30 | NUR ---
Assisted pt back to her bed to rest with her feet elevated.
[2022-07-21] MEDS: ferrous sulfate 325mg tablet PO SCH (09:58)
[2022-07-21] MEDS: atorvastatin 10mg tablet PO SCH (09:58)
[2022-07-21] MEDS: ziprasidone 20mg capsule PO SCH ×2 (09:58→17:42)
[2022-07-21] MEDS: multivitamins, therapeutics tablet PO SCH (09:58)
[2022-07-21] MEDS: sennosides 8.6mg tablet PO SCH (09:59)
[2022-07-21] MEDS: lactobacillus rhamnosus 10,000 MMU CELLS/CAPSULE PO SCH (09:59)
[2022-07-21] MEDS: lamoTRIgine 100mg tablet PO SCH (09:59)
[2022-07-21] MEDS: vortioxetine HBr tablet 5 MG TABLET PO SCH (09:59)
[2022-07-21] MEDS: clonazePAM 0.5mg tablet PO SCH ×3 (10:00→16:32)
--- NOTE | 2022-07-21 10:10 | NUR ---
Pt demanding to get up. Assisted pt up. Pt is now standing in one stop yelling for coffee.
[2022-07-21] MEDS: ascorbic acid 500mg tablet PO SCH (10:17)
[2022-07-21] MEDS: nicotine 7mg patch - 24hr TD SCH (10:18)
--- NOTE | 2022-07-21 11:35 | NUR ---
Pt continues to yell and tanning solution maker one spot with her eyes closed. She refuses to lay back down.
--- NOTE | 2022-07-21 12:30 | NUR ---
Pt has been sleeping. She refused 1200 Klonopin.
--- NOTE | 2022-07-21 13:19 | NUR ---
Wound care here treating pt's wound.
--- NOTE | 2022-07-21 15:20 | NUR ---
Pt has been sleeping. She continues to refuse Klonopin.
--- NOTE | 2022-07-21 15:39 | NUR ---
Agree with TUBE DRAWING SUPERVISOR WOC documentation.
[2022-07-21] MEDS: quetiapine fumarate ER 300mg tablet PO SCH (16:32)
--- NOTE | 2022-07-21 16:38 | NUR ---
Pt up in the BR. Took her medications and is now standing up wondering around.
--- NOTE | 2022-07-21 18:00 | NUR ---
RN redid pt vitals and got 122/89 with a HR of 85
--- NOTE | 2022-07-21 18:38 | NUR ---
Patient is sitting at bedside eating her dinner. Patient had a short outburst earlier where she insisted on taking off her facial bandage. Patient has a sitter at bedside.
[2022-07-21] MEDS: HYDROcodone/acetaminophen 5mg/325mg tablet PO PRN (19:26)
--- NOTE | 2022-07-21 20:06 | NUR ---
Patient continues to have outbursts, she yells and is in general uncooperative. The patient continues to complain of her back and pain to legs. This commercial underwriter spoke with Dr. Awad. Per Dr. Awad administer Morphine IR 7.25 mg PO.
[2022-07-21] MEDS ORDERED: morphine IR (immed. release) 30mg tablet PO ONE (20:20)
[2022-07-21] MEDS: polyethylene glycol 3350 17gm powd pack PO SCH (21:00)
--- NOTE | 2022-07-21 22:46 | NUR ---
Patient is up using her walker. She continues complaing of back and leg pain. Patient drinks some coffee.
--- NOTE | 2022-07-21 23:11 | NUR ---
Patient is up to commode, female tech is assisting patient.
--- NOTE | 2022-07-21 23:55 | NUR ---
Patient remains awake, standing up next to bed. She uses walker to walk around with her books.
[2022-07-22] MEDS: fluvoxamine 25 MG tablet PO SCH ×2 (00:45→21:07)
[2022-07-22] MEDS: vortioxetine HBr tablet 5 MG TABLET PO SCH ×3 (00:45→21:07)
[2022-07-22] MEDS: ferrous sulfate 325mg tablet PO SCH ×3 (00:46→21:10)
[2022-07-22] MEDS: lamoTRIgine 100mg tablet PO SCH ×3 (00:46→21:08)
[2022-07-22] MEDS: docusate sod 250mg capsule PO SCH ×2 (00:46→21:08)
[2022-07-22] MEDS: sennosides 8.6mg tablet PO SCH ×3 (00:46→21:09)
[2022-07-22] MEDS: ascorbic acid 500mg tablet PO SCH ×3 (00:46→21:10)
[2022-07-22] MEDS: montelukast 10mg tablet PO SCH ×2 (00:47→21:10)
[2022-07-22] MEDS: lactobacillus rhamnosus 10,000 MMU CELLS/CAPSULE PO SCH ×3 (00:47→21:09)
--- NOTE | 2022-07-22 01:47 | NUR ---
Patient is sitting at bedside eating a sandwich.
--- NOTE | 2022-07-22 02:30 | NUR ---
Patient is sitting quietly on her bed. No distress.
--- NOTE | 2022-07-22 03:15 | NUR ---
Patient is sleeping now, her legs dangling off the bed. No distress noted.
--- NOTE | 2022-07-22 04:11 | NUR ---
Patient is awake, she ambulates slowly with her walker.
--- NOTE | 2022-07-22 04:49 | NUR ---
Patient up to bathroom to void. Upon returning to her bed patient became argumentative. Patient was redirected and she quieted.
--- NOTE | 2022-07-22 06:04 | NUR ---
Patient continues to be rude and intrusive. She goes into the bathroom and yells without cause. Multiple attempts at redirection have been attempted throughout the night.
--- NOTE | 2022-07-22 06:52 | NUR ---
Received Pt awake and standing near her bed. Pt is demanding a piece of clothing which is not at [facility] and more food. Pt vitals taken and she is now sitting in her chair.
[2022-07-22] MEDS: multivitamins, therapeutics tablet PO SCH (08:00)
[2022-07-22] MEDS: nicotine 7mg patch - 24hr TD SCH (08:00)
--- NOTE | 2022-07-22 08:45 | NUR ---
Pt eating breakfast at this time with assistance from sitter. Pt had her hair combed and braided.
--- NOTE | 2022-07-22 10:04 | NUR ---
Pt taken to shower and returned to her bed area where she is being assisted with grooming and adl's.
[2022-07-22] MEDS: ziprasidone 20mg capsule PO SCH ×2 (10:11→17:03)
[2022-07-22] MEDS: clonazePAM 0.5mg tablet PO SCH ×3 (10:12→17:02)
[2022-07-22] MEDS: atorvastatin 10mg tablet PO SCH (10:13)
--- NOTE | 2022-07-22 12:53 | NUR ---
Pt eating lunch and took her mid day klonopin. Pt appears very tired.
--- NOTE | 2022-07-22 15:45 | NUR ---
After lunch Pt used bathroom and laid down in bed and fell asleep. Pt remains in bed sleeping at this time.
[2022-07-22] MEDS: quetiapine fumarate ER 300mg tablet PO SCH (17:02)
--- NOTE | 2022-07-22 17:33 | NUR ---
Pt woke before dinner and has since eaten and took meds w/o issue. She remains lethargic and sitting on the edge of her bed.
--- NOTE | 2022-07-22 17:52 | NUR ---
tech informed RN of pt pain level
--- NOTE | 2022-07-22 18:30 | NUR ---
Assumed patient care. She is eating her dinner. She has a sitter at bedside.
--- NOTE | 2022-07-22 19:16 | NUR ---
Patient has a sitter at bedside. She ate her dinner. Patient has been resting quietly.
--- NOTE | 2022-07-22 19:34 | NUR ---
Patient is sleeping quietly in a supine position in her bed.
--- NOTE | 2022-07-22 20:33 | NUR ---
Patient complains of back and leg pain, she is mostly compliant with care.
[2022-07-22] MEDS: polyethylene glycol 3350 17gm powd pack PO SCH (21:00)
[2022-07-22] MEDS: HYDROcodone/acetaminophen 5mg/325mg tablet PO PRN (21:09)
[2022-07-22] MEDS: clonazePAM 0.5mg tablet PO PRN (21:10)
--- NOTE | 2022-07-22 21:30 | NUR ---
Patient complied with night medications. Hydrocodone given for back and leg pain.
--- NOTE | 2022-07-22 22:23 | NUR ---
Patient is up to bathroom to void and change her brief. Her sitter is assisting.
--- NOTE | 2022-07-22 23:39 | NUR ---
Patient is sleeping quietly in her chair. Patient sitter at chair side.
--- NOTE | 2022-07-23 00:41 | NUR ---
Patient is sleeping sitting upright in her chair.
--- NOTE | 2022-07-23 01:52 | NUR ---
Patilent is awake and sitting at bedside.
[2022-07-23] MEDS: clonazePAM 0.5mg tablet PO PRN (03:27)
[2022-07-23] MEDS: ibuprofen tablet 400 MG TABLET PO PRN ×2 (03:33→20:10)
--- NOTE | 2022-07-23 03:34 | NUR ---
Patient exhibits frustration and complains of pain. PO Motrin 400 mg and Klonopin 1 mg PO given. Patient assisted to restroom to void. A clean depends was issued.
--- NOTE | 2022-07-23 04:25 | NUR ---
Patient just fell asleep. Low fowlers position. In direct view from nurses station.
--- NOTE | 2022-07-23 05:31 | NUR ---
Patient is sleeping quietly, low fowlers position. No distress.
--- NOTE | 2022-07-23 06:30 | NUR ---
Received pt awake in her room. Pt has not consistently slept, only small cat naps. AM sitter arrived at 0615.
[2022-07-23] MEDS: ascorbic acid 500mg tablet PO SCH ×2 (08:30→20:11)
[2022-07-23] MEDS: atorvastatin 10mg tablet PO SCH (08:30)
[2022-07-23] MEDS: lactobacillus rhamnosus 10,000 MMU CELLS/CAPSULE PO SCH ×2 (08:30→20:11)
[2022-07-23] MEDS: multivitamins, therapeutics tablet PO SCH (08:30)
[2022-07-23] MEDS: sennosides 8.6mg tablet PO SCH ×2 (08:30→20:11)
[2022-07-23] MEDS: ferrous sulfate 325mg tablet PO SCH ×2 (08:30→20:10)
[2022-07-23] MEDS: clonazePAM 0.5mg tablet PO SCH ×3 (08:31→16:32)
[2022-07-23] MEDS: lamoTRIgine 100mg tablet PO SCH ×2 (08:31→20:10)
[2022-07-23] MEDS: ziprasidone 20mg capsule PO SCH ×2 (08:31→17:53)
[2022-07-23] MEDS: vortioxetine HBr tablet 5 MG TABLET PO SCH ×2 (08:31→20:10)
[2022-07-23] MEDS: nicotine 7mg patch - 24hr TD SCH (08:33)
--- NOTE | 2022-07-23 08:45 | NUR ---
Pt was escorted to shower with sitter and security.
--- NOTE | 2022-07-23 10:46 | NUR ---
Pt laid down in bed and is sleeping comfortably.
--- NOTE | 2022-07-23 13:45 | NUR ---
New sitter arrived.
--- NOTE | 2022-07-23 13:45 | NUR ---
Pt woke on her own and ate lunch. Sitter at bedside.
--- NOTE | 2022-07-23 14:26 | NUR ---
Assisted patient to bathroom and helped changed wet depends.
--- NOTE | 2022-07-23 15:03 | NUR ---
Pt up to the BR door but will not go in it. She decided she wants to watch TV. Staff getting the TV set up for her to watch.
[2022-07-23] MEDS: quetiapine fumarate ER 300mg tablet PO SCH (16:31)
--- NOTE | 2022-07-23 16:40 | NUR ---
Pt having intermittent loud outbursts from "I want a shower!" "I haven't showered in two years!" "Do you know what year this is!?" To "I haven't eaten in six years!" Pt was given a shower this morning is provide meals and snacks. Pt is behavioral, she looked at staff then dug into the wound on her face.
--- NOTE | 2022-07-23 19:05 | NUR ---
The patient is agitated,screaming and banging her walker on the floor.
--- NOTE | 2022-07-23 19:36 | NUR ---
The patient is up out of the bathroom. She is semi cooperative with her staff.
[2022-07-23] MEDS: fluvoxamine 25 MG tablet PO SCH (20:10)
[2022-07-23] MEDS: docusate sod 250mg capsule PO SCH (20:11)
[2022-07-23] MEDS: montelukast 10mg tablet PO SCH (20:11)
[2022-07-23] MEDS: polyethylene glycol 3350 17gm powd pack PO SCH (20:11)
[2022-07-23] MEDS: HYDROcodone/acetaminophen 5mg/325mg tablet PO PRN (20:11)
--- NOTE | 2022-07-23 23:59 | NUR ---
The patient up to use the bathroom
[2022-07-24] MEDS: ibuprofen tablet 400 MG TABLET PO PRN (02:49)
[2022-07-24] MEDS: clonazePAM 0.5mg tablet PO PRN (02:49)
--- NOTE | 2022-07-24 02:57 | NUR ---
Assumed care of patient, patient is up using the bathroom, yelling and agitated with staff. Pt wants a clean gown and was provided with gown. Pt was also c/o generalized pain. Pt was given motrin prn and klonopin prn for agitation. Pt is sitting quietly in her chair with sitter at bedside.
[2022-07-24] MEDS ORDERED: ziprasidone IM 20mg inj **IM only IM ONE (03:55)
--- NOTE | 2022-07-24 04:17 | NUR ---
Pt continued to escalate, screaming that "it's 10am!" pt stood up and began walking around the floor near other patients rooms, screaming and pushing at staff and [facility] sitter. Provider was notified and came to see patient sitting on the floor near another patients room screaming. Provider ordered Geodon 20mg IM. Pt tolerated well. Pt is sitting quietly in bed presently.
--- NOTE | 2022-07-24 06:24 | NUR ---
Patient reclining and sleeping in bed. No distress noted at this time. Sitter at bedside. Continue to monitor.
[2022-07-24] MEDS: vortioxetine HBr tablet 5 MG TABLET PO SCH ×2 (08:00→20:28)
--- NOTE | 2022-07-24 08:06 | NUR ---
Patient sitting on bed eating breakfast. No distress observed. Continue to monitor.
--- NOTE | 2022-07-24 08:50 | NUR ---
Patient screaming for a shower. RN expains to patient that until all the staff has had breakfast she is going to need to wait. Patient continues screaming. Continue to monitor.
[2022-07-24] MEDS: ziprasidone 20mg capsule PO SCH ×2 (08:54→17:41)
[2022-07-24] MEDS: atorvastatin 10mg tablet PO SCH (08:55)
[2022-07-24] MEDS: sennosides 8.6mg tablet PO SCH ×2 (08:55→20:41)
[2022-07-24] MEDS: multivitamins, therapeutics tablet PO SCH (08:55)
[2022-07-24] MEDS: clonazePAM 0.5mg tablet PO SCH ×3 (08:55→17:42)
[2022-07-24] MEDS: lactobacillus rhamnosus 10,000 MMU CELLS/CAPSULE PO SCH ×2 (08:55→20:27)
[2022-07-24] MEDS: lamoTRIgine 100mg tablet PO SCH ×2 (08:55→20:27)
[2022-07-24] MEDS: ferrous sulfate 325mg tablet PO SCH ×2 (08:55→20:30)
[2022-07-24] MEDS: nicotine 7mg patch - 24hr TD SCH (08:56)
[2022-07-24] MEDS: ascorbic acid 500mg tablet PO SCH ×2 (08:56→20:27)
--- NOTE | 2022-07-24 09:40 | NUR ---
Patient continued to scream and wanted to get cleaned up in her room. Sitter assisting patient in getting cleaned up with wipes and shower cap. Continue to monitor.
--- NOTE | 2022-07-24 10:50 | NUR ---
Patient was sitting in her recliner and walked out of room with her face bandage off and actively bleeding down her gown. Patient was picking at her wound Continue to monitor.
--- NOTE | 2022-07-24 12:36 | NUR ---
Patient eating and falling asleep. Continue to monitor.
--- NOTE | 2022-07-24 14:35 | NUR ---
Patient has been screaming and singing loudly "I want a shower." RN advised patient she may have a shower tomorrow. As RN speaks to patient she gets louder and states I'm going to keep yelling until I get a shower. RN states "tomorrow". Patient has been yelling for over 2 hours. Continue to monitor.
--- NOTE | 2022-07-24 14:44 | NUR ---
Patient attempting to walk out. Sitter at side and patient walked back to her room by Marleny Orozco. No distress observed. Continue to monitor.
--- NOTE | 2022-07-24 16:38 | NUR ---
Patient went to the BR and finally quit yelling and singing loudly. Continue to monitor.
[2022-07-24] MEDS: quetiapine fumarate ER 300mg tablet PO SCH (17:43)
[2022-07-24] MEDS: montelukast 10mg tablet PO SCH (20:27)
[2022-07-24] MEDS: docusate sod 250mg capsule PO SCH (20:27)
[2022-07-24] MEDS: fluvoxamine 25 MG tablet PO SCH (20:30)
[2022-07-24] MEDS: polyethylene glycol 3350 17gm powd pack PO SCH (20:41)
--- NOTE | 2022-07-24 22:08 | NUR ---
Pt has been reasonably cooperative so far this shift. Took Medications with yogurt refused Miralax. some brief periods of yelling but can be redirected. Sitter at bedside. Up in BR with sitter several times this shift.
--- NOTE | 2022-07-25 00:38 | NUR ---
Pt sitting on bed sitter at bedside. Pt has been quiet dozing at times.
[2022-07-25] MEDS: clonazePAM 0.5mg tablet PO PRN (02:28)
[2022-07-25] MEDS: HYDROcodone/acetaminophen 5mg/325mg tablet PO PRN (03:11)
[2022-07-25] MEDS ORDERED: ziprasidone IM 20mg inj **IM only IM ONE (03:30)
--- NOTE | 2022-07-25 03:49 | NUR ---
Pt medicated with 20mg Geodon IM for increasing agitation and attempting to leave the unit. Distraction, redirection, reassurance, reorientation to reality were all ineffective. Pt is lying in bed quietly at this time.
--- NOTE | 2022-07-25 06:50 | NUR ---
Patient sleeping supine with sitter at her side. No distress observed. Continue to monitor.
[2022-07-25] MEDS: ziprasidone 20mg capsule PO SCH ×2 (08:14→17:58)
[2022-07-25] MEDS: ferrous sulfate 325mg tablet PO SCH ×2 (08:14→19:59)
[2022-07-25] MEDS: atorvastatin 10mg tablet PO SCH (08:14)
[2022-07-25] MEDS: sennosides 8.6mg tablet PO SCH ×2 (08:14→19:59)
[2022-07-25] MEDS: lamoTRIgine 100mg tablet PO SCH ×2 (08:14→19:59)
[2022-07-25] MEDS: lactobacillus rhamnosus 10,000 MMU CELLS/CAPSULE PO SCH ×2 (08:14→19:59)
[2022-07-25] MEDS: vortioxetine HBr tablet 5 MG TABLET PO SCH ×2 (08:14→20:00)
[2022-07-25] MEDS: clonazePAM 0.5mg tablet PO SCH ×3 (08:14→17:59)
[2022-07-25] MEDS: multivitamins, therapeutics tablet PO SCH (08:14)
[2022-07-25] MEDS: ascorbic acid 500mg tablet PO SCH ×2 (08:14→19:59)
--- NOTE | 2022-07-25 09:06 | NUR ---
Patient taken in w/c to shower with sitter and Tech Hetal. Patient calm and in no distress. Continue to monitor.
--- NOTE | 2022-07-25 09:47 | NUR ---
SITTER TOOK PT TO TAKE A SHOWER. PT SHOWERED AND CHANGED TO FRESH CLOTHING. PT HAS BEEN MOSTLY REASONABLE W/ STAFF THIS MORNING. BANDAGES ON HER FACE WERE CHANGED OUT FOR NEW ONES. PT IS SITTING ON BED W/ SITTER NOW.
--- NOTE | 2022-07-25 10:51 | NUR ---
Patient fell asleep in her bed but with her feet on the floor. Continue to monitor.
--- NOTE | 2022-07-25 12:25 | NUR ---
Pt sitting in her recliner finishing her lunch. No disteress noted.
--- NOTE | 2022-07-25 14:24 | NUR ---
Patient ambulatory to BR with a depends. No distress observed. Sitter arrived and briefed. Continue to monitor.
--- NOTE | 2022-07-25 16:11 | NUR ---
Patient in a good mood and calling herself Mrs. Adams and she had a shot-gun wedding. Patient laughing. RN told patient that she has a home and will be moving in less than 3 weeks. Continue to monitor.
--- NOTE | 2022-07-25 17:49 | NUR ---
Patient eating dinner. No distress observed. Continue to monitor.
[2022-07-25] MEDS: quetiapine fumarate ER 300mg tablet PO SCH (17:58)
--- NOTE | 2022-07-25 18:30 | NUR ---
Patient eating dinner. No distress observed. Continue to monitor.
[2022-07-25] MEDS: fluvoxamine 25 MG tablet PO SCH (21:03)
[2022-07-25] MEDS: docusate sod 250mg capsule PO SCH (21:03)
[2022-07-25] MEDS: polyethylene glycol 3350 17gm powd pack PO SCH (21:05)
[2022-07-25] MEDS: montelukast 10mg tablet PO SCH (21:09)
--- NOTE | 2022-07-26 00:10 | NUR ---
Patient awake up to use restroom . No distress observed. Continue to monitor.
--- NOTE | 2022-07-26 05:43 | NUR ---
Patient awake up to use restroom . No distress observed. Continue to monitor.
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
--- NOTE | 2022-07-26 08:07 | NUR ---
Patient eating lunch. Sitter did not show up at 0600. Patient is calm and in no distress. Continue to monitor.
[2022-07-26] MEDS: clonazePAM 0.5mg tablet PO SCH ×3 (08:10→17:55)
[2022-07-26] MEDS: sennosides 8.6mg tablet PO SCH ×2 (08:10→20:05)
[2022-07-26] MEDS: multivitamins, therapeutics tablet PO SCH (08:10)
[2022-07-26] MEDS: ziprasidone 20mg capsule PO SCH ×2 (08:10→17:55)
[2022-07-26] MEDS: lamoTRIgine 100mg tablet PO SCH ×2 (08:10→20:05)
[2022-07-26] MEDS: atorvastatin 10mg tablet PO SCH (08:10)
[2022-07-26] MEDS: vortioxetine HBr tablet 5 MG TABLET PO SCH ×2 (08:10→20:05)
[2022-07-26] MEDS: lactobacillus rhamnosus 10,000 MMU CELLS/CAPSULE PO SCH ×2 (08:10→20:00)
[2022-07-26] MEDS: ferrous sulfate 325mg tablet PO SCH ×2 (08:10→20:00)
[2022-07-26] MEDS: ascorbic acid 500mg tablet PO SCH ×2 (08:17→20:00)
--- NOTE | 2022-07-26 10:03 | NUR ---
Patient calm and sitting in her recliner. Sitter arrived around 0930 this morning. No distress observed. Continue to monitor.
--- NOTE | 2022-07-26 11:11 | NUR ---
Patient took about a 45 minute nap and is now waking up. Patient sitting in her recliner. No distress observed. Sitter at side. Continue to monitor.
--- NOTE | 2022-07-26 12:07 | NUR ---
Patient sitting in recliner and eating lunch. No distress observed. Continue to monitor.
--- NOTE | 2022-07-26 13:05 | NUR ---
Patient taken to shower by tech and sitter in w/c. Patient is calm and cooperative. Continue to monitor.
--- NOTE | 2022-07-26 13:40 | NUR ---
Patient is back and cried when she got here. She was fine until they turned into her area. Patient is very tired of being here. RN comforted patient. Continue to monitor.
--- NOTE | 2022-07-26 15:13 | NUR ---
Patient's afternoon sitter arrived. Patient is not sitting in be with her blanket on and reading a book. No distress observed. Continue to monitor.
[2022-07-26] MEDS: HYDROcodone/acetaminophen 5mg/325mg tablet PO PRN (15:35)
--- NOTE | 2022-07-26 17:21 | NUR ---
Patient fell asleep sitting in her recliner. Sitter at bedside. No distress observed. Continue to monitor.
[2022-07-26] MEDS: quetiapine fumarate ER 300mg tablet PO SCH (17:54)
--- NOTE | 2022-07-26 19:13 | NUR ---
Received pt walking to the restroom after dinner. Sitter is at the bedside.
[2022-07-26] MEDS: fluvoxamine 25 MG tablet PO SCH (20:05)
[2022-07-26] MEDS: montelukast 10mg tablet PO SCH (20:05)
[2022-07-26] MEDS: acetaminophen 325mg tablet PO PRN (20:14)
[2022-07-26] MEDS: docusate sod 250mg capsule PO SCH (20:18)
[2022-07-26] MEDS: polyethylene glycol 3350 17gm powd pack PO SCH (20:18)
--- NOTE | 2022-07-26 22:23 | NUR ---
The pt has been up and wondering to the restroom and back to her bed wanting sweat pants, coffee and a snack.
--- NOTE | 2022-07-27 01:09 | NUR ---
Pt appears to be sleeping in her chair.
--- NOTE | 2022-07-27 03:14 | NUR ---
Pt is awake and using the walker to get to the nurses station and mumbles something to the staff...pt is requesting milk.
--- NOTE | 2022-07-27 05:20 | NUR ---
Pt up pacing, yelling that we are starving her, she needs food.
--- NOTE | 2022-07-27 06:15 | NUR ---
Received pt. awake and standing in her room at change of shift. Sitter at bedside.
--- NOTE | 2022-07-27 07:58 | NUR ---
Pt eating breakfast at bedside.
[2022-07-27] MEDS: ascorbic acid 500mg tablet PO SCH ×2 (08:23→20:00)
[2022-07-27] MEDS: lamoTRIgine 100mg tablet PO SCH ×2 (08:23→20:08)
[2022-07-27] MEDS: multivitamins, therapeutics tablet PO SCH (08:23)
[2022-07-27] MEDS: atorvastatin 10mg tablet PO SCH (08:23)
[2022-07-27] MEDS: vortioxetine HBr tablet 5 MG TABLET PO SCH ×2 (08:23→20:08)
[2022-07-27] MEDS: ferrous sulfate 325mg tablet PO SCH ×2 (08:23→20:00)
[2022-07-27] MEDS: lactobacillus rhamnosus 10,000 MMU CELLS/CAPSULE PO SCH ×2 (08:23→20:00)
[2022-07-27] MEDS: ziprasidone 20mg capsule PO SCH ×2 (08:23→17:49)
[2022-07-27] MEDS: sennosides 8.6mg tablet PO SCH ×2 (08:23→20:08)
[2022-07-27] MEDS: clonazePAM 0.5mg tablet PO SCH ×3 (08:24→16:37)
--- NOTE | 2022-07-27 11:34 | NUR ---
Pt. repeatedly yelling, "there is no food, there is no food, they wont let me out of here, I need a shower now!" Sitter will assist pt to the shower after lunch. Pt is not being receptive and continues to yell.
--- NOTE | 2022-07-27 11:40 | NUR ---
Pt will not stop yelling and demanding a shower, will have security and sitter take pt. to the shower now.
--- NOTE | 2022-07-27 11:49 | NUR ---
Pt being escorted to the shower with security and sitter. Addendum: 07/27/22 at 1200 by JOSHUA Pt refused to go to the shower due to unch arriving.
--- NOTE | 2022-07-27 12:00 | NUR ---
Pt refused to go to the shower due to lunch arriving right as she was leaving the unit to shower. Pt eating lunch at this time.
--- NOTE | 2022-07-27 13:03 | NUR ---
AGREE WITH [facility] REFRIGERATION REPAIR SUPERVISOR CHARTING
--- NOTE | 2022-07-27 14:28 | NUR ---
Pt giving herself a sponge bath in the restroom.
[2022-07-27] MEDS: quetiapine fumarate ER 300mg tablet PO SCH (15:38)
--- NOTE | 2022-07-27 16:28 | NUR ---
Dressing replaced to wound on right cheek due to pt pulling the old dressing off.
--- NOTE | 2022-07-27 16:33 | NUR ---
Pt demanding to be let out and asking to go to the nursery to see her babies. Pt is not redirectable. Pt offered a snack, pt continues to yell that she wants to be let out.
--- NOTE | 2022-07-27 18:20 | NUR ---
Pt eating dinner at bedside. Report given to NOC shift.
--- NOTE | 2022-07-27 19:25 | NUR ---
Received pt eating her dinner in her chair, no s/s of distress. Pt up to the BR independently.
[2022-07-27] MEDS: fluvoxamine 25 MG tablet PO SCH (20:08)
[2022-07-27] MEDS: montelukast 10mg tablet PO SCH (20:08)
[2022-07-27] MEDS: clonazePAM 0.5mg tablet PO PRN (20:08)
[2022-07-27] MEDS: polyethylene glycol 3350 17gm powd pack PO SCH (20:15)
[2022-07-27] MEDS: docusate sod 250mg capsule PO SCH (20:15)
--- NOTE | 2022-07-27 22:40 | NUR ---
Pt appears to be sleeping in her bed. No s/s of distress.
--- NOTE | 2022-07-28 00:37 | NUR ---
Up to the BR independently, clean bedding provided, new gown and scrub pants.
--- NOTE | 2022-07-28 02:44 | NUR ---
Pt has been up standing by her bed doing small tasks...brushing her hair, drinking coffee, walks with her FWW independently.
[2022-07-28] MEDS: HYDROcodone/acetaminophen 5mg/325mg tablet PO PRN (05:12)
--- NOTE | 2022-07-28 05:14 | NUR ---
Pt sitting in her chair watching TV.
--- NOTE | 2022-07-28 06:15 | NUR ---
recieved report, pt. sitting in her chair, no s/sx of distress noted, sitter at the bedside.
--- NOTE | 2022-07-28 08:15 | NUR ---
Pt. awake and eating breakfast, no distress noted.
[2022-07-28] MEDS: lamoTRIgine 100mg tablet PO SCH ×2 (08:18→20:00)
[2022-07-28] MEDS: ziprasidone 20mg capsule PO SCH ×2 (08:18→17:12)
[2022-07-28] MEDS: lactobacillus rhamnosus 10,000 MMU CELLS/CAPSULE PO SCH ×2 (08:18→20:00)
[2022-07-28] MEDS: ferrous sulfate 325mg tablet PO SCH ×2 (08:18→20:00)
[2022-07-28] MEDS: clonazePAM 0.5mg tablet PO SCH ×3 (08:19→16:50)
[2022-07-28] MEDS: multivitamins, therapeutics tablet PO SCH (08:19)
[2022-07-28] MEDS: atorvastatin 10mg tablet PO SCH (08:19)
[2022-07-28] MEDS: vortioxetine HBr tablet 5 MG TABLET PO SCH ×2 (08:20→20:00)
[2022-07-28] MEDS: sennosides 8.6mg tablet PO SCH ×2 (08:22→20:00)
[2022-07-28] MEDS: ascorbic acid 500mg tablet PO SCH ×2 (08:42→20:00)
--- NOTE | 2022-07-28 10:15 | NUR ---
Pt. awke and recieving a bed bath by sitter, no distress noted.
--- NOTE | 2022-07-28 12:26 | NUR ---
Pt. asleep, resting on her back, no distress noted.
--- NOTE | 2022-07-28 14:39 | NUR ---
Pt. asleep in recylner, no distress noted.
[2022-07-28] MEDS: quetiapine fumarate ER 300mg tablet PO SCH (15:16)
--- NOTE | 2022-07-28 16:01 | NUR ---
Pt. with sitter, being assited with care at the bedside. No distress noted.
--- NOTE | 2022-07-28 17:47 | NUR ---
Pt. ambulating with FWW, sitter assit with stand by
--- NOTE | 2022-07-28 18:30 | NUR ---
Patient is eating dinner. She is cooperative. A sitter is at bedside.
--- NOTE | 2022-07-28 19:20 | NUR ---
Patient has eaten her dinner. She is watching television.
--- NOTE | 2022-07-28 20:50 | NUR ---
Patient is sleeping quietly. A sitter is at bedside.
[2022-07-28] MEDS: montelukast 10mg tablet PO SCH (21:00)
[2022-07-28] MEDS: polyethylene glycol 3350 17gm powd pack PO SCH (21:00)
[2022-07-28] MEDS: fluvoxamine 25 MG tablet PO SCH (21:00)
[2022-07-28] MEDS: docusate sod 250mg capsule PO SCH (21:00)
--- NOTE | 2022-07-28 22:25 | NUR ---
Patient continues to sleep quietly, no distress noted.
--- NOTE | 2022-07-28 23:20 | NUR ---
Patient is sleeping quietly, supine position in bed. Sitter at bedside.
--- NOTE | 2022-07-29 00:37 | NUR ---
Patient continues to sleep quietly. She has self repositioned herself onto her right side. Good color. No signs of distress. A sitter is at bedside.
--- NOTE | 2022-07-29 01:28 | NUR ---
Patient is awake now. Ambulatory with walker to the restroom to void. Patient given a new depends. Sitter is assisting patient with ADL's.
[2022-07-29] MEDS: HYDROcodone/acetaminophen 5mg/325mg tablet PO PRN (01:47)
--- NOTE | 2022-07-29 01:58 | NUR ---
Patient complains of back and leg pain. PO [place] 5 given.
--- NOTE | 2022-07-29 02:44 | NUR ---
Patient has returned to sleep. Sitter at bedside, no distress.
--- NOTE | 2022-07-29 04:01 | NUR ---
Patient up to bathroom to void. She was given a new depends. Patient slowly returned to bed using her walker.
--- NOTE | 2022-07-29 05:57 | NUR ---
Patient is sitting up in bed, she now stands up and talks to her sitter.
[2022-07-29] MEDS: multivitamins, therapeutics tablet PO SCH (07:13)
[2022-07-29] MEDS: atorvastatin 10mg tablet PO SCH (07:13)
[2022-07-29] MEDS: vortioxetine HBr tablet 5 MG TABLET PO SCH ×2 (07:13→20:12)
[2022-07-29] MEDS: ascorbic acid 500mg tablet PO SCH ×2 (07:13→20:12)
[2022-07-29] MEDS: ziprasidone 20mg capsule PO SCH ×2 (07:13→18:00)
[2022-07-29] MEDS: clonazePAM 0.5mg tablet PO SCH ×3 (07:13→16:03)
[2022-07-29] MEDS: lamoTRIgine 100mg tablet PO SCH ×2 (07:14→20:12)
[2022-07-29] MEDS: sennosides 8.6mg tablet PO SCH ×2 (07:14→20:11)
[2022-07-29] MEDS: lactobacillus rhamnosus 10,000 MMU CELLS/CAPSULE PO SCH ×2 (07:14→20:12)
[2022-07-29] MEDS: ferrous sulfate 325mg tablet PO SCH ×2 (07:14→20:12)
--- NOTE | 2022-07-29 07:30 | NUR ---
Pt. standing in the unit, yelling "wheres my food" pt. is disruptive, unable to be redirected.
--- NOTE | 2022-07-29 08:38 | NUR ---
Pt. awake eating breakfast, sitter near by.
--- NOTE | 2022-07-29 11:35 | NUR ---
Pt. yelling demanding food, screaming out at staff, unable to redirect
--- NOTE | 2022-07-29 13:30 | NUR ---
Pt. yelling at sitter and staff, stating" Im not supposed to be here" Pt. is yelling out loudly, unble to redirect, sx of agitation and anxiety observed; PRN Klonopin administered.
[2022-07-29] MEDS: clonazePAM 0.5mg tablet PO PRN (13:36)
--- NOTE | 2022-07-29 14:39 | NUR ---
Pt. resting and watching tv. no distress noted, sitter at the bedside.
--- NOTE | 2022-07-29 15:30 | NUR ---
Pt. awake and walking to the bathroom with sitter.
[2022-07-29] MEDS: quetiapine fumarate ER 300mg tablet PO SCH (15:39)
--- NOTE | 2022-07-29 17:26 | NUR ---
Wound care completed to Lt. side of face, pt. tolerated it well, no c/o pain
--- NOTE | 2022-07-29 18:02 | NUR ---
Pt. eating dinner while sitting on their bed, sitter near by
--- NOTE | 2022-07-29 18:42 | NUR ---
Patient is pleasant and cooperative at this time; eating dinner in her chair.
--- NOTE | 2022-07-29 19:54 | NUR ---
Note alisa in EDM - 07/29/22 at 1958 by CECILY IV Rocephen started along with 2 litres of NaCl over 2 hours. Patient has a saline lock in place that was in place in her left AC. It was flushed and had a good return too.
[2022-07-29] MEDS: montelukast 10mg tablet PO SCH (20:11)
[2022-07-29] MEDS: polyethylene glycol 3350 17gm powd pack PO SCH (20:11)
[2022-07-29] MEDS: docusate sod 250mg capsule PO SCH (20:12)
[2022-07-29] MEDS: fluvoxamine 25 MG tablet PO SCH (20:12)
--- NOTE | 2022-07-29 20:39 | NUR ---
Patient is pleasant and cooperative with meds; she is sleeping in her chair at this time with no apparent distress.
--- NOTE | 2022-07-29 22:45 | NUR ---
Patient is sleeping in her chair; no apparent distress. Even respirations noted.
--- NOTE | 2022-07-30 00:30 | NUR ---
Patient woke up to use the restroom and change her top as she had food all over. Patient is loud and demanding when she has needs she wants met. Patient is laying her bed at this time.
--- NOTE | 2022-07-30 02:59 | NUR ---
Patient laying in bed awake; appears tired but fighting sleep at this time.
--- NOTE | 2022-07-30 05:53 | NUR ---
Patient is up and fidgeting with items in her room. Facial bandage and gown changed d/t being soiled.
--- NOTE | 2022-07-30 07:09 | NUR ---
0639 received report from Minerva GIORDANO assumed care of pt sitting up in recliner eating pudding. Patrick feldman in direct obs of pt.
[2022-07-30] MEDS: ferrous sulfate 325mg tablet PO SCH ×2 (07:38→20:00)
[2022-07-30] MEDS: lactobacillus rhamnosus 10,000 MMU CELLS/CAPSULE PO SCH ×2 (07:38→20:00)
[2022-07-30] MEDS: multivitamins, therapeutics tablet PO SCH (07:39)
[2022-07-30] MEDS: ziprasidone 20mg capsule PO SCH ×2 (07:39→18:32)
[2022-07-30] MEDS: sennosides 8.6mg tablet PO SCH ×2 (07:39→20:00)
[2022-07-30] MEDS: lamoTRIgine 100mg tablet PO SCH ×2 (07:39→20:00)
[2022-07-30] MEDS: clonazePAM 0.5mg tablet PO SCH ×3 (07:39→16:33)
[2022-07-30] MEDS: ascorbic acid 500mg tablet PO SCH ×2 (07:39→20:00)
[2022-07-30] MEDS: atorvastatin 10mg tablet PO SCH (07:39)
[2022-07-30] MEDS: vortioxetine HBr tablet 5 MG TABLET PO SCH ×2 (07:47→20:00)
--- NOTE | 2022-07-30 09:07 | NUR ---
0905 pt taken to shower room escorted by x2 security officers and Bernie feldman, with clean clothes and shower supplies.
--- NOTE | 2022-07-30 09:56 | NUR ---
0910 pt returned from shower clean clothes on. Angelita radiographer technologist braided pt's hair at bedside. pt calm and cooperative at present time. Sitter at bedside.
[2022-07-30] MEDS ORDERED: clonazePAM 0.5mg tablet PO ONE (13:15)
[2022-07-30] MEDS: HYDROcodone/acetaminophen 5mg/325mg tablet PO PRN ×2 (13:54→22:28)
[2022-07-30] MEDS: quetiapine fumarate ER 300mg tablet PO SCH (16:33)
--- NOTE | 2022-07-30 19:13 | NUR ---
Patient received yelling in her room; she was verbally redirected and cooperative with her scheduled Geodon.
[2022-07-30] MEDS: fluvoxamine 25 MG tablet PO SCH (20:00)
[2022-07-30] MEDS: polyethylene glycol 3350 17gm powd pack PO SCH (20:00)
[2022-07-30] MEDS: docusate sod 250mg capsule PO SCH (20:00)
[2022-07-30] MEDS: montelukast 10mg tablet PO SCH (20:00)
--- NOTE | 2022-07-30 22:19 | NUR ---
Patient was pleasant and cooperative with her medication. She requires prompting and slow moving but compliant. She took a nap in her bed and now up going through her bedside belongings.
--- NOTE | 2022-07-30 23:52 | NUR ---
Some behaviors presented at this time; she is worried about living at the hospital. Stated Addendum: 07/31/22 at 0001 by ESTUARDO Stated, "I need to get out of here to live my life." She is demanding a wheel chair and attempting to argue about the time. Following some verbal redirections.
[2022-07-31] MEDS: ibuprofen tablet 400 MG TABLET PO PRN (02:09)
[2022-07-31] MEDS: clonazePAM 0.5mg tablet PO PRN (02:10)
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
--- NOTE | 2022-07-31 05:16 | NUR ---
Patient sitting in her chair and watching TV; argumetive this morning. Patient is upset about a hat that staff cannot find.
[2022-07-31] MEDS ORDERED: LORazepam 2 mg/ml vial IM ONE (05:55)
--- NOTE | 2022-07-31 06:40 | NUR ---
Patient and sitter walked over to the shower with the [place]. Patient is in a w/c. No distress observed at this time. Continue to monitor.
[2022-07-31] MEDS: ziprasidone 20mg capsule PO SCH ×3 (08:00→18:00)
--- NOTE | 2022-07-31 08:11 | NUR ---
Patient eating breakfast. No distress observed. Continue to monitor.
[2022-07-31] MEDS: clonazePAM 0.5mg tablet PO SCH ×4 (08:58→18:00)
[2022-07-31] MEDS: vortioxetine HBr tablet 5 MG TABLET PO SCH ×2 (08:59→20:00)
[2022-07-31] MEDS: ascorbic acid 500mg tablet PO SCH ×2 (08:59→20:00)
[2022-07-31] MEDS: sennosides 8.6mg tablet PO SCH ×2 (08:59→20:00)
[2022-07-31] MEDS: lamoTRIgine 100mg tablet PO SCH ×2 (08:59→20:00)
[2022-07-31] MEDS: lactobacillus rhamnosus 10,000 MMU CELLS/CAPSULE PO SCH ×2 (08:59→20:00)
[2022-07-31] MEDS: ferrous sulfate 325mg tablet PO SCH ×2 (08:59→20:00)
[2022-07-31] MEDS: multivitamins, therapeutics tablet PO SCH (08:59)
[2022-07-31] MEDS: atorvastatin 10mg tablet PO SCH (08:59)
--- NOTE | 2022-07-31 09:40 | NUR ---
PT WAS PICKING AT HER FACE AGAIN THIS MORNING AFTER SHE SHOWERED. I RE-CLEANED WOUND, AND APPLIED NEW BANDAGES.
--- NOTE | 2022-07-31 12:10 | NUR ---
Patient has been attempting to leave and pushing to get past staff. Patient yelling and screaming saying you can't keep me here! RN understands that the patient is very frustrated having to live here 6 months. Patient would not be safe if allowed to leave. Continue to monitor.
--- NOTE | 2022-07-31 12:38 | NUR ---
Patient eating lunch and screaming about a black bottle that was taken off her tray. Staff does not know what she is talking about. Continue to monitor.
--- NOTE | 2022-07-31 14:13 | NUR ---
Patient up and walking around with the sitter. No distress observed. Continue to monitor.
[2022-07-31] MEDS: quetiapine fumarate ER 300mg tablet PO SCH ×2 (16:00→18:00)
--- NOTE | 2022-07-31 16:23 | NUR ---
Patient is tearful and wants a cigarette. Patient would not relent. Sitter at bedside. Continue to monitor.
--- NOTE | 2022-07-31 16:55 | NUR ---
RN took patient is a w/c up to the third floor to look outside in the hallway. Patient really wanted to go outside. RN said she would take her outside as long as she didn't fuss when we came back. RN agreed. RN and sitter took patient to the front of the hospital. walked around the front and parked in front of some persaud. Patient did appear to enjoy being outside. When RN brought patient back patient did not fuss. Patient easily got out of the w/c and sat in her room and had a little snack. RN advised patient that since she did so well, she would take her again tomorrow. Continue to monitor
--- NOTE | 2022-07-31 17:30 | NUR ---
Patient crying because she says her son is and we won't let her go to the home. Inconsolable. Patient refusing meds. Continue to monitor.
[2022-07-31] MEDS ORDERED: ziprasidone IM 20mg inj **IM only ONE (18:17)
--- NOTE | 2022-07-31 19:31 | NUR ---
Patient received Geodon 40mg IM at 1825; she was agitated/crying out for her son that she belives to have as an infant. Patient's son is alive and she received mail with a picture of him graduating high school. Patient was not able to verbally redirect. She was refusing PO medication. She is attemptiing to eat her dinner and has settled down.
[2022-07-31] MEDS: fluvoxamine 25 MG tablet PO SCH (20:00)
[2022-07-31] MEDS: docusate sod 250mg capsule PO SCH (20:00)
[2022-07-31] MEDS: polyethylene glycol 3350 17gm powd pack PO SCH (20:00)
[2022-07-31] MEDS: montelukast 10mg tablet PO SCH (20:00)
--- NOTE | 2022-07-31 22:44 | NUR ---
Patient took aprox 2hr nap and now up in her room. She is being pleasant and quiet at this time.
--- NOTE | 2022-08-01 00:21 | NUR ---
Patient appears to tired but fighting sleep. She is wandering around (slowly) and rambling about anything she can think of. Patient took her facial bandage off. New dressing being applied.
--- NOTE | 2022-08-01 03:04 | NUR ---
Patient is sleeping in her chair with feet elevated. No apparent distress; even respirations.
[2022-08-01] MEDS ORDERED: ziprasidone IM 20mg inj **IM only ONE (04:15)
[2022-08-01] MEDS ORDERED: ziprasidone IM 20mg inj **IM only IM ONE ×2 (04:15→22:10)
--- NOTE | 2022-08-01 04:32 | NUR ---
Patient up and yelling "let me out" "I'm going to here" "I've got a baby in my belly" "You guys are going to kill me" She is dirupting the unit and peers yelling back at her. Patient is not verbally directable at this time and received Geodon 10mg IM.
--- NOTE | 2022-08-01 06:04 | NUR ---
Patient is sleeping in her bed; no apparent distress. Even respirations noted.
--- NOTE | 2022-08-01 06:37 | NUR ---
Patient sleeping in bed. No distress observed. Sitter at bedside. Continue to monitor.
[2022-08-01] MEDS: HYDROcodone/acetaminophen 5mg/325mg tablet PO PRN (07:24)
[2022-08-01] MEDS: ascorbic acid 500mg tablet PO SCH ×2 (07:24→19:54)
[2022-08-01] MEDS: ibuprofen tablet 400 MG TABLET PO PRN ×2 (07:24→15:47)
[2022-08-01] MEDS: ferrous sulfate 325mg tablet PO SCH ×2 (07:24→19:54)
[2022-08-01] MEDS: sennosides 8.6mg tablet PO SCH ×2 (07:24→20:52)
[2022-08-01] MEDS: ziprasidone 20mg capsule PO SCH ×2 (07:25→20:52)
[2022-08-01] MEDS: multivitamins, therapeutics tablet PO SCH (07:25)
[2022-08-01] MEDS: lactobacillus rhamnosus 10,000 MMU CELLS/CAPSULE PO SCH ×2 (07:25→19:53)
[2022-08-01] MEDS: lamoTRIgine 100mg tablet PO SCH ×2 (07:25→20:52)
[2022-08-01] MEDS: atorvastatin 10mg tablet PO SCH (07:25)
[2022-08-01] MEDS: clonazePAM 0.5mg tablet PO SCH ×3 (07:25→20:51)
--- NOTE | 2022-08-01 08:10 | NUR ---
Patient eating breakfast slowly. No distress observed. Continue to monitor.
[2022-08-01] MEDS: vortioxetine HBr tablet 5 MG TABLET PO SCH ×2 (08:20→20:52)
--- NOTE | 2022-08-01 10:17 | NUR ---
Patient is getting up walking around and then sitting down in her chair. No distress observed. Continue to monitor.
--- NOTE | 2022-08-01 12:13 | NUR ---
Patient eating lunch. No distress observed. Continue to monitor.
--- NOTE | 2022-08-01 13:23 | NUR ---
Patient went to the shower in w/c with aldo and Marleny Harman. No distress observed. Continue to monitor.
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
[2022-08-01] MEDS: quetiapine fumarate ER 300mg tablet PO SCH (15:47)
--- NOTE | 2022-08-01 17:20 | NUR ---
Patient has attempted to leave the unit twice. Patient is anticipating leaving next week and now cannot wait. Patient was stopped and assisted to her recliner. Continue to monitor.
--- NOTE | 2022-08-01 18:12 | NUR ---
Patient eating dinner. No distress observed. Continue to monitor.
[2022-08-01] MEDS: polyethylene glycol 3350 17gm powd pack PO SCH (19:54)
--- NOTE | 2022-08-01 20:20 | NUR ---
Patient sleeping in her recliner. No distress observed. Continue to monitor.
[2022-08-01] MEDS: fluvoxamine 25 MG tablet PO SCH (20:52)
[2022-08-01] MEDS: montelukast 10mg tablet PO SCH (20:52)
[2022-08-01] MEDS: docusate sod 250mg capsule PO SCH (20:52)
--- NOTE | 2022-08-01 21:20 | NUR ---
Patient awake and yelling for a w/c. RN placed patient in a red w/c but patient wanted one that she could control. RN took patient on a stroll to the main lobby and in the front of the hospital. Patient was still asking for a w/c of her own. RN stated she didn't need a w/c. Patient kept saying her legs are broken. When RN brought patient into the ER. Patient started screaming loudly. Eventually RN took patient back to ED OF screaming. RN and tech placed patient in bed. Patient started screaming. RN sat at the bedside attempting to calm the patient down. Patient would not have any of it. Continue to monitor.
--- NOTE | 2022-08-01 22:25 | NUR ---
Patient not able to control herself and spoke with Dr Awad who ordered an I.M. injection of Geodon.
--- NOTE | 2022-08-01 23:10 | NUR ---
Patient was hitting, scratching and attempting to bite staff. RN attempted to calm patient to no avail. RN requested Security and Dr Awad ordered soft behavioral restraints. Once Security arrived patient calmed down. RN decided that restraints were no longer required. Security hung out for a while and patient fell asleep. Continue to monitor.
--- NOTE | 2022-08-02 00:41 | NUR ---
Patient continues to sleep. No distress observed. Continue to monitor.
--- NOTE | 2022-08-02 02:40 | NUR ---
At 0240 patient sitting up and attempting to get out of bed. Patient requested to use the BR. Tech got patient up in a wheelchair and RN cleaned patient's bed as patient had urinated in the bed. RN assisted Tech to get patient dressed and move patient back to the w/c and back to her bed. Patient did not want to go to bed so staff put her in her recliner. Continue to monitor.
--- NOTE | 2022-08-02 03:42 | NUR ---
PANNUS/INGUINAL FUNGAL RASH. PLEASE CLEAN BEFORE PLACING NYSTOP POWDER
--- NOTE | 2022-08-02 05:21 | NUR ---
Patient awake and sitting in w/c. No distress observed. Continue to monitor.
--- NOTE | 2022-08-02 07:00 | NUR ---
Received Pt standing near her bed and yelling "this is not my room!" Pt assured she was near the correct bed. Pt voicing wanting to leave.
[2022-08-02] MEDS: atorvastatin 10mg tablet PO SCH (08:06)
[2022-08-02] MEDS: vortioxetine HBr tablet 5 MG TABLET PO SCH ×2 (08:06→18:52)
[2022-08-02] MEDS: nystatin 15 GM powder TP SCH ×3 (08:06→21:40)
[2022-08-02] MEDS: lamoTRIgine 100mg tablet PO SCH ×2 (08:06→18:52)
[2022-08-02] MEDS: sennosides 8.6mg tablet PO SCH ×2 (08:06→20:45)
[2022-08-02] MEDS: multivitamins, therapeutics tablet PO SCH (08:07)
[2022-08-02] MEDS: lactobacillus rhamnosus 10,000 MMU CELLS/CAPSULE PO SCH ×2 (08:07→20:45)
[2022-08-02] MEDS: ferrous sulfate 325mg tablet PO SCH ×2 (08:07→20:45)
[2022-08-02] MEDS: ascorbic acid 500mg tablet PO SCH ×2 (08:07→20:45)
[2022-08-02] MEDS: ziprasidone 20mg capsule PO SCH ×2 (08:07→18:48)
[2022-08-02] MEDS: clonazePAM 0.5mg tablet PO SCH ×3 (08:08→17:00)
[2022-08-02] MEDS ORDERED: ziprasidone IM 20mg inj **IM only IM ONE (09:05)
--- NOTE | 2022-08-02 09:53 | NUR ---
Pt took AM meds and ate breakfast w/o issue. Pt received Mabel BONDS after many attempts to keep Pt from yelling and attempting to hit staff. Pt sitting on edge of her bed at this time.
--- NOTE | 2022-08-02 11:05 | NUR ---
Pt appears to be sleeping in bed at this time and in no distress.
[2022-08-02] MEDS ORDERED: OLANZapine **IM** 10 mg inj. IM ONE (15:10)
--- NOTE | 2022-08-02 15:39 | NUR ---
Note rejijacki in ED - 08/02/22 at 1542 by CHELA Pt was consistently trying to escape, and would not take any verbal direction, she was screaming, thrashing, and tried to bite staff and punch them for about 20 minutes. Staff repeatedly tried to redirect pt, but she became more combative. Orders for zyprexa 10mg IM obtained and given with the assistance of staff and security on stand by.
--- NOTE | 2022-08-02 15:44 | NUR ---
Pt was consistently trying to escape, and would not take any verbal direction, she was screaming, thrashing, and tried to bite staff and punch them for about 20 minutes. Staff repeatedly tried to redirect pt, but she became more combative. Orders for zyprexa 10mg IM obtained and given with the assistance of staff and security on stand by.
[2022-08-02] MEDS: quetiapine fumarate ER 300mg tablet PO SCH (16:36)
--- NOTE | 2022-08-02 16:50 | NUR ---
Pt in bed sleeping w/o distress and vitals being monitored at this time.
--- NOTE | 2022-08-02 17:48 | NUR ---
Pt is awake and is attempting to walk off unit and being redirected to her bed. Pt drinking coffee and loudly repeating different phrases. Pt not responding to logical explanations or caring responses.
--- NOTE | 2022-08-02 18:40 | NUR ---
Pt sitting in her chair, yelling she needs a shower, screenplay writer and PCT attempted to calm her down. Eventually she calmed down by herself. She is asking, "let me out, please let me out. PCT at bedside assisting pt.
[2022-08-02] MEDS: ibuprofen tablet 400 MG TABLET PO PRN (18:52)
[2022-08-02] MEDS: HYDROcodone/acetaminophen 5mg/325mg tablet PO PRN (18:54)
[2022-08-02] MEDS: montelukast 10mg tablet PO SCH (20:44)
[2022-08-02] MEDS: docusate sod 250mg capsule PO SCH (20:45)
[2022-08-02] MEDS: fluvoxamine 25 MG tablet PO SCH (20:45)
[2022-08-02] MEDS: polyethylene glycol 3350 17gm powd pack PO SCH (20:45)
--- NOTE | 2022-08-02 21:10 | NUR ---
Pt up in wheelchair, yelling that it's morning. Screaming for coffee. Pt given coffee after she took all her HS medications. No sitter tonight. Monitor for safety and agitation.
--- NOTE | 2022-08-02 22:20 | NUR ---
Pt sitting up in chair, sitter, Freeman at bedside.
[2022-08-02] MEDS ORDERED: morphine 4 MG/ML inj SYRINge IM ONE (22:40)
--- NOTE | 2022-08-02 22:52 | NUR ---
Pt contimnues to yell that's it's morning, I have to go. Non redirectable at this time Order obtained to give pt Morphine 4mg IM, placed in left deltoid. Tolerated well.
--- NOTE | 2022-08-03 02:26 | NUR ---
Pt in wheelchair at her bedside with sitter drinking coffee.
[2022-08-03] MEDS: clonazePAM 0.5mg tablet PO PRN ×4 (02:37→20:42)
--- NOTE | 2022-08-03 02:39 | NUR ---
Pt up aking for a shower, she doesn't believe it's only 0239 in the morning. Pt is reminded that she can have a shower on day shift. "I want my hair ties, all of them!", over and over again. Pt medicated with Klonopin 1mg po. Continue to monitor.
[2022-08-03] MEDS ORDERED: morphine 4 MG/ML inj SYRINge IM ONE (03:20)
[2022-08-03] MEDS ORDERED: ziprasidone IM 20mg inj **IM only IM ONE (03:20)
--- NOTE | 2022-08-03 05:22 | NUR ---
Pt slept 1 1/2 hours after IM's given 0337. Pt is back to asking to leave, asking for the wheelchair. Pt was given the walker and she went to the bathroom.
--- NOTE | 2022-08-03 07:00 | NUR ---
Pt.'s sitter had to leave, RN informed that new sitter will come at 0900. Pt. is yelling that she is supposed to leave now. Pt. is diffucult to redirect.
[2022-08-03] MEDS: lactobacillus rhamnosus 10,000 MMU CELLS/CAPSULE PO SCH ×2 (07:33→20:46)
[2022-08-03] MEDS: atorvastatin 10mg tablet PO SCH (07:33)
[2022-08-03] MEDS: ziprasidone 20mg capsule PO SCH ×2 (07:34→18:05)
[2022-08-03] MEDS: clonazePAM 0.5mg tablet PO SCH ×3 (07:34→17:20)
[2022-08-03] MEDS: lamoTRIgine 100mg tablet PO SCH ×2 (07:34→20:41)
[2022-08-03] MEDS: sennosides 8.6mg tablet PO SCH ×2 (07:34→20:45)
[2022-08-03] MEDS: ferrous sulfate 325mg tablet PO SCH ×2 (07:34→20:40)
[2022-08-03] MEDS: vortioxetine HBr tablet 5 MG TABLET PO SCH ×2 (07:34→20:41)
[2022-08-03] MEDS: ascorbic acid 500mg tablet PO SCH ×2 (07:35→20:45)
[2022-08-03] MEDS: multivitamins, therapeutics tablet PO SCH (07:38)
[2022-08-03] MEDS: nystatin 15 GM powder TP SCH ×3 (08:00→21:00)
--- NOTE | 2022-08-03 08:30 | NUR ---
Pt. is awake and eating her breakfast in her chair.
--- NOTE | 2022-08-03 09:11 | NUR ---
[facility] called and confirmed Pt moving on 08/07/22. No time as of yet.
--- NOTE | 2022-08-03 10:30 | NUR ---
Pt. toileting with stand-by assist of sitter. Pt.'s brief and gown changed.
[2022-08-03] MEDS: HYDROcodone/acetaminophen 5mg/325mg tablet PO PRN ×2 (11:24→20:43)
--- NOTE | 2022-08-03 11:30 | NUR ---
RN informed that pt. to be discharged on 08/07 @ 13:30.
--- NOTE | 2022-08-03 12:30 | NUR ---
Pt. c/o bilateral leg pain rated 9/10 and given [place] 5/325 along with scheduled Klonopin. Pt. eating lunch with sitter at her side.
--- NOTE | 2022-08-03 14:18 | NUR ---
Pt. become agitated, yelling, "I want to go home!" Pt. given Klonopin 1mg PRN.
[2022-08-03] MEDS ORDERED: QUET300T5 PO (14:19)
[2022-08-03] MEDS ORDERED: MELA5TAB12 PO (14:19)
[2022-08-03] MEDS ORDERED: FLUV100T21 PO (14:19)
[2022-08-03] MEDS ORDERED: SENN-25 PO (14:19)
[2022-08-03] MEDS ORDERED: COLL30OI TOP (14:19)
[2022-08-03] MEDS ORDERED: CLON-528 PO ×2 (14:19)
[2022-08-03] MEDS ORDERED: OLAN2.5T3 PO (14:19)
[2022-08-03] MEDS ORDERED: ACET325T59 PO (14:19)
[2022-08-03] MEDS ORDERED: IBUP-1984 PO (14:19)
[2022-08-03] MEDS ORDERED: GABA600T13 PO (14:19)
[2022-08-03] MEDS ORDERED: POLY17PO59 PO (14:19)
[2022-08-03] MEDS ORDERED: MONT-40 PO (14:19)
[2022-08-03] MEDS ORDERED: DOCU240C26 PO (14:19)
[2022-08-03] MEDS ORDERED: CLON-527 PO (14:19)
[2022-08-03] MEDS ORDERED: ZIPR60CA2 PO (14:19)
[2022-08-03] MEDS ORDERED: ASCO500C17 PO (14:19)
[2022-08-03] MEDS ORDERED: VORT5TAB PO (14:19)
[2022-08-03] MEDS ORDERED: OMEP40CA21 PO (14:19)
[2022-08-03] MEDS ORDERED: MULT-1085 PO (14:19)
[2022-08-03] MEDS ORDERED: QUET25TA PO (14:19)
[2022-08-03] MEDS ORDERED: ATOR10TA70 PO (14:19)
[2022-08-03] MEDS ORDERED: HYDR-3964 PO ×2 (14:19)
[2022-08-03] MEDS ORDERED: PALI234D IM (14:19)
[2022-08-03] MEDS ORDERED: LAMO100T2 PO (14:19)
[2022-08-03] MEDS ORDERED: BENZ1TAB78 PO (14:19)
[2022-08-03] MEDS ORDERED: LACT1CAP74 PO (14:19)
[2022-08-03] MEDS ORDERED: FERR325T28 PO (14:19)
[2022-08-03] MEDS ORDERED: LEVE10006 PO (14:19)
[2022-08-03] MEDS ORDERED: ZOLP10TA PO (14:19)
[2022-08-03] MEDS ORDERED: FAMO-280 PO (14:19)
[2022-08-03] MEDS ORDERED: LEVO25CA4 PO (14:19)
[2022-08-03] MEDS ORDERED: LISI10TA27 PO (14:19)
[2022-08-03] MEDS ORDERED: HYDR-3965 PO (14:24)
--- NOTE | 2022-08-03 14:29 | NUR ---
AGREE WITH [facility] DIRECTOR OF INFECTION PREVENTION CHARTING
--- NOTE | 2022-08-03 14:30 | NUR ---
PT. ASLEEP IN HER CHAIR. SITTER IS NEXT TO HER.
[2022-08-03] MEDS: quetiapine fumarate ER 300mg tablet PO SCH (16:20)
--- NOTE | 2022-08-03 16:30 | NUR ---
Pt. awake and eating yogurt in her chair.
--- NOTE | 2022-08-03 18:09 | NUR ---
Pt. awake and trying to take her sitters belongings, stating, "These shoes are mine!". Pt. given her evening Mabel.
--- NOTE | 2022-08-03 18:30 | NUR ---
Patient is in view from nurses station. She is interacting with a sitter that has been provided. Patient is cooperative at this time.
--- NOTE | 2022-08-03 19:50 | NUR ---
Lj cuellar in ED - 08/03/22 at 1952 by CECILY Patient is in view from nurses station. She is interacting with a sitter that has been provided. Patient is cooperative at this time.
--- NOTE | 2022-08-03 19:51 | NUR ---
Patient is asleep in her chair. No distress. Sitter is at bedside.
--- NOTE | 2022-08-03 20:21 | NUR ---
Patient is up to the bathroom to void. She uses her walker. An observer is with this patient.
[2022-08-03] MEDS: fluvoxamine 25 MG tablet PO SCH (20:44)
[2022-08-03] MEDS: docusate sod 250mg capsule PO SCH (20:45)
--- NOTE | 2022-08-03 20:48 | NUR ---
Patient complied with taking most of her medications. Some anxiety. Klonopin 0.5 mg given. Leg and back pain, [place] 5 mg given PO.
[2022-08-03] MEDS: polyethylene glycol 3350 17gm powd pack PO SCH (21:00)
[2022-08-03] MEDS: montelukast 10mg tablet PO SCH (21:32)
--- NOTE | 2022-08-04 02:19 | NUR ---
Patient is out of bed, she complains of pain, she also attempts to elope. She is intrusive with staff and argumentative. Dr. Awad is consulted. He advised to give patient another Hydrocodone 5 and Geodon 20 mg PO now.
[2022-08-04] MEDS ORDERED: HYDROcodone/acetaminophen 5mg/325mg tablet PO ONE (02:20)
[2022-08-04] MEDS ORDERED: ziprasidone 20mg capsule PO ONE (02:20)
--- NOTE | 2022-08-04 03:31 | NUR ---
Patient remains awake, her outbursts are becoming fewer. On of the wood crafter's washed and braided patients hair for her. Patients bandage to her left face remains dry and intact. Patient has no pain complaints at this time.
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
[2022-08-04] MEDS ORDERED: morphine 4 MG/ML inj SYRINge IM ONE ×2 (05:15→19:45)
[2022-08-04] MEDS ORDERED: diphenhydrAMINE 50 mg/ml inj IM ONE ×2 (05:15→19:45)
--- NOTE | 2022-08-04 05:40 | NUR ---
The patient was given Benadryl 50 mg IM along with Morphine 4 mg IM. Security at bedside.
--- NOTE | 2022-08-04 06:58 | NUR ---
Patient is settled down in bed by her caregiver. Patient appears to be sleeping in bed. No s/s of distress noted.
--- NOTE | 2022-08-04 08:03 | NUR ---
Patient awake after a short nap.
[2022-08-04] MEDS: ascorbic acid 500mg tablet PO SCH ×2 (08:24→20:00)
[2022-08-04] MEDS: vortioxetine HBr tablet 5 MG TABLET PO SCH ×2 (08:24→20:00)
[2022-08-04] MEDS: ferrous sulfate 325mg tablet PO SCH ×2 (08:24→20:00)
[2022-08-04] MEDS: ziprasidone 20mg capsule PO SCH ×2 (08:25→18:11)
[2022-08-04] MEDS: atorvastatin 10mg tablet PO SCH (08:25)
[2022-08-04] MEDS: lamoTRIgine 100mg tablet PO SCH ×2 (08:25→20:04)
[2022-08-04] MEDS: clonazePAM 0.5mg tablet PO SCH ×3 (08:25→16:42)
[2022-08-04] MEDS: sennosides 8.6mg tablet PO SCH ×2 (08:25→19:59)
[2022-08-04] MEDS: lactobacillus rhamnosus 10,000 MMU CELLS/CAPSULE PO SCH ×2 (08:25→20:00)
[2022-08-04] MEDS: multivitamins, therapeutics tablet PO SCH (08:26)
[2022-08-04] MEDS: nystatin 15 GM powder TP SCH ×3 (08:26→21:00)
--- NOTE | 2022-08-04 08:49 | NUR ---
Patient eating breakfast, and took meds in yogurt without complaint. Sitter at bedside.
--- NOTE | 2022-08-04 10:06 | NUR ---
Patient up to the restroom, then is going to take a shower with manager subway.
[2022-08-04] MEDS ORDERED: bisacodyl 10mg suppository rectal RC STA (11:00)
--- NOTE | 2022-08-04 11:51 | NUR ---
Patient sleeping at this time.
--- NOTE | 2022-08-04 13:50 | NUR ---
Patient assisted to ambulate to the bathroom. Suppository was scheduled to be given, administered that and nystatin powder. Patient agitated at this time. Sitting eating lunch.
[2022-08-04] MEDS: clonazePAM 0.5mg tablet PO PRN ×2 (14:25→20:01)
[2022-08-04] MEDS: HYDROcodone/acetaminophen 5mg/325mg tablet PO PRN (14:25)
--- NOTE | 2022-08-04 15:52 | NUR ---
Sitter at bedside with patitne. Addendum: 08/04/22 at 1552 by LORI *patient. Pt agitated at this time r/t her personal belongings. Patient repeatedly advised to not stand at nurses station and scream. Accompanied to back to room multiple times.
[2022-08-04] MEDS: quetiapine fumarate ER 300mg tablet PO SCH (16:42)
--- NOTE | 2022-08-04 17:38 | NUR ---
Patient sitting on side of the bed eating dinner with sitter at bedside. Patient has continued to be agitated intermittenly, saying things such as "I need to get out of here!", and "get me a mask!".
--- NOTE | 2022-08-04 18:30 | NUR ---
Assumed patient care. This patient is labile at times, she has been awake. Requires constant redirection.
--- NOTE | 2022-08-04 19:50 | NUR ---
Patient has sitter at bedside. Patient continues her labile and intrusive behavior.
[2022-08-04] MEDS: fluvoxamine 25 MG tablet PO SCH (20:00)
--- NOTE | 2022-08-04 20:00 | NUR ---
Patient is non compliant with staff, she yells and can't be redirected. Patilent is intrusive. ER MD advised. Order for Morphine 4 mg IM and Benadryl 50 mg IM. This will be administered.
[2022-08-04] MEDS: montelukast 10mg tablet PO SCH (20:01)
[2022-08-04] MEDS: docusate sod 250mg capsule PO SCH (20:04)
[2022-08-04] MEDS: polyethylene glycol 3350 17gm powd pack PO SCH (21:00)
--- NOTE | 2022-08-04 21:50 | NUR ---
Patient is now resting quietly in her bed asleep. Good color, warm and dry, her sitter is at bedside.
--- NOTE | 2022-08-04 22:34 | NUR ---
Patient remains sleeping quietly. A sitter at bedside. Patient is in direct view from nurses station.
--- NOTE | 2022-08-04 23:50 | NUR ---
Good color, W/D, no distress. Patient has a sitter at bedside.
--- NOTE | 2022-08-05 01:41 | NUR ---
Patient sleeping well. Supine in bed. Normal resp, good color.
--- NOTE | 2022-08-05 03:16 | NUR ---
Patient is sleeping quietly, supine in bed.
--- NOTE | 2022-08-05 03:33 | NUR ---
Patient continues to sleep in a supine position. No distress.
--- NOTE | 2022-08-05 05:27 | NUR ---
Patient is awake and sitting in her chair. A sitter is at bedside.
[2022-08-05] MEDS: HYDROcodone/acetaminophen 5mg/325mg tablet PO PRN ×2 (05:45→19:15)
--- NOTE | 2022-08-05 05:45 | NUR ---
Patient is exhibiting loud behavior again. She is defiant, she complains of back, arm and leg pain. She demands a wheelchair. She does ambulate well with a walker. Patient was given a [place] 5. The patient has a sitter at bedside who is having some success at redirecting this patient. The patient is drinking some decaf coffee.
--- NOTE | 2022-08-05 07:04 | NUR ---
TANYA Lopez and Lashay GIORDANO- Report given. Problems reprioritized.
[2022-08-05] MEDS: lactobacillus rhamnosus 10,000 MMU CELLS/CAPSULE PO SCH ×2 (08:00→19:12)
[2022-08-05] MEDS: ziprasidone 20mg capsule PO SCH ×2 (08:00→17:54)
[2022-08-05] MEDS: lamoTRIgine 100mg tablet PO SCH ×2 (08:00→19:20)
[2022-08-05] MEDS: atorvastatin 10mg tablet PO SCH (08:00)
[2022-08-05] MEDS: vortioxetine HBr tablet 5 MG TABLET PO SCH ×2 (08:00→19:20)
[2022-08-05] MEDS: ferrous sulfate 325mg tablet PO SCH ×2 (08:00→19:13)
[2022-08-05] MEDS: sennosides 8.6mg tablet PO SCH ×2 (08:00→19:13)
[2022-08-05] MEDS: nystatin 15 GM powder TP SCH ×3 (08:00→21:00)
[2022-08-05] MEDS: clonazePAM 0.5mg tablet PO SCH ×3 (08:00→16:48)
[2022-08-05] MEDS: multivitamins, therapeutics tablet PO SCH (08:00)
[2022-08-05] MEDS: ascorbic acid 500mg tablet PO SCH ×2 (08:00→19:13)
[2022-08-05] MEDS ORDERED: ziprasidone IM 20mg inj **IM only IM ONE (11:40)
[2022-08-05] MEDS: quetiapine fumarate ER 300mg tablet PO SCH (16:48)
--- NOTE | 2022-08-05 18:30 | NUR ---
Assumed care. Patient transfered back to bed 23 from ER main. Patient is well oriented, labile and intrusive. Sitter at bedside. Patient redirected.
[2022-08-05] MEDS: docusate sod 250mg capsule PO SCH (19:12)
[2022-08-05] MEDS: montelukast 10mg tablet PO SCH (19:13)
[2022-08-05] MEDS: ibuprofen tablet 400 MG TABLET PO PRN (19:13)
[2022-08-05] MEDS: clonazePAM 0.5mg tablet PO PRN (19:15)
[2022-08-05] MEDS: fluvoxamine 25 MG tablet PO SCH (21:00)
[2022-08-05] MEDS: polyethylene glycol 3350 17gm powd pack PO SCH (21:00)
--- NOTE | 2022-08-05 22:43 | NUR ---
Patient is sleeping quietly in a supine position. A sitter is at bedside.
--- NOTE | 2022-08-06 01:17 | NUR ---
Patient quietly sleeps in a supine position. A sitter is at bedside.
--- NOTE | 2022-08-06 03:32 | NUR ---
Patient is awake, she ambulates to the bathroom with her walker. Patients sitter assists the patient with a brief change.
[2022-08-06] MEDS ORDERED: morphine ER 15mg tablet PO ONE (03:45)
[2022-08-06] MEDS ORDERED: diphenhydrAMINE 25mg capsule PO ONE (03:45)
[2022-08-06] MEDS ORDERED: morphine 4 MG/ML inj SYRINge IM ONE (03:55)
--- NOTE | 2022-08-06 04:38 | NUR ---
Patient is awake and standing at the nurses station. She has had Morphine 4 mg IM for her pain and agitation, Benadryl 50 mg was given PO too. The patient looks relaxed now. She is drinking a cup of decaf coffee and eating a peanut butter sandwich.
--- NOTE | 2022-08-06 05:17 | NUR ---
Patient exhibits a foul odor. Patients gown was changed. She is looking more compliant. Patient is reorganizing her belongings.
--- NOTE | 2022-08-06 05:33 | NUR ---
Patient is standing at the nurses station. No distress.
--- NOTE | 2022-08-06 05:40 | NUR ---
Patient became angry when her face was being washed. Patients glasses were washed and dried. She ambulates around with her walker. Her behavior is labile again. Patient yells something about a window.
--- NOTE | 2022-08-06 07:00 | NUR ---
Pt was standing at nurses station since shift change. Pt has multiple requests and appears anxious. Pt doesn't want to go back to her bed and state "I don't want to go back there." Fresh coffee was given to patient and she sat in chair to watch T.V.
[2022-08-06] MEDS: lamoTRIgine 100mg tablet PO SCH ×2 (07:55→19:42)
[2022-08-06] MEDS: multivitamins, therapeutics tablet PO SCH (07:56)
[2022-08-06] MEDS: lactobacillus rhamnosus 10,000 MMU CELLS/CAPSULE PO SCH ×2 (07:56→19:42)
[2022-08-06] MEDS: ziprasidone 20mg capsule PO SCH ×2 (07:56→18:01)
[2022-08-06] MEDS: atorvastatin 10mg tablet PO SCH (07:56)
[2022-08-06] MEDS: clonazePAM 0.5mg tablet PO SCH ×3 (07:57→16:19)
[2022-08-06] MEDS: vortioxetine HBr tablet 5 MG TABLET PO SCH ×2 (07:57→19:41)
[2022-08-06] MEDS: sennosides 8.6mg tablet PO SCH ×2 (07:57→19:42)
[2022-08-06] MEDS: ferrous sulfate 325mg tablet PO SCH ×2 (07:57→19:42)
[2022-08-06] MEDS: nystatin 15 GM powder TP SCH ×3 (07:57→19:42)
[2022-08-06] MEDS: ascorbic acid 500mg tablet PO SCH ×2 (07:57→19:41)
--- NOTE | 2022-08-06 09:00 | NUR ---
Pt is restless, increased mumbling and tears. Pt repeats over "I don't want to go in there." Addendum: 08/06/22 at 1001 by LYNDA Pt referring to her room.
--- NOTE | 2022-08-06 09:30 | NUR ---
Pt off unit to shower. Pt is supervised.
--- NOTE | 2022-08-06 11:30 | NUR ---
Pt ambulating unit with FWW. Pt continues to be restless, but is redirectable. Sitter with patient.
--- NOTE | 2022-08-06 12:39 | NUR ---
Patient sitting up in chair eating lunch. Pt is falling asleep as he eats. Will hold 1200 Klonopin.
--- NOTE | 2022-08-06 14:14 | NUR ---
Pt continues to rest comfortably in her recliner, pt has been sleeping since 1240.
[2022-08-06] MEDS: quetiapine fumarate ER 300mg tablet PO SCH (16:19)
--- NOTE | 2022-08-06 17:20 | NUR ---
Pt sitting in recliner eating dinner. Pt has been tearful and whiney. Pt wouldn't sit in her chair if it was to far in her room staying "Don't put me in there." Pt took her 1600/1700 medication without issue.
--- NOTE | 2022-08-06 19:20 | NUR ---
The patient is quite oppositional. She is yelling but is difficult to understand or redirect from the leaving the unit. The assigned one to one staff is attempting to redirect her with some success at times. Her legs have 3+ pitting edema and she is encouraged to have her legs up when ever she is sitting in her chair but she is limitedly cooperative with this intervention.
[2022-08-06] MEDS: fluvoxamine 25 MG tablet PO SCH (19:41)
[2022-08-06] MEDS: polyethylene glycol 3350 17gm powd pack PO SCH (19:42)
[2022-08-06] MEDS: docusate sod 250mg capsule PO SCH (19:42)
[2022-08-06] MEDS: HYDROcodone/acetaminophen 5mg/325mg tablet PO PRN (19:42)
[2022-08-06] MEDS: ibuprofen tablet 400 MG TABLET PO PRN (19:42)
[2022-08-06] MEDS: montelukast 10mg tablet PO SCH (19:42)
[2022-08-06] MEDS ORDERED: ziprasidone IM 20mg inj **IM only IM ONE (20:20)
--- NOTE | 2022-08-06 20:41 | NUR ---
The patient was very agitated and trying to leave the unit. She threw herself down on the ground. She is yelling nonstop and is inconsolable. She was given pain medications and extra food items. Dr. Hope made aware and orders received.
--- NOTE | 2022-08-06 21:14 | NUR ---
The patient currently appears to be sleeping. Her legs are elevated.
--- NOTE | 2022-08-06 22:09 | NUR ---
The patient appears to be sleeping
--- NOTE | 2022-08-06 23:20 | NUR ---
The patient appears to be sleeping. One to one sitter at the bedside
--- NOTE | 2022-08-07 01:31 | NUR ---
The patient appears to be sleeping
--- NOTE | 2022-08-07 02:34 | NUR ---
The patient up to use the bathroom and once in there began crying and fretting. "please don't make me go back in there! Please don't make me go back in there!" She is insisting that she has broken her arm in 18 different places. She had guaze wrapped around both arms very lightly and those useless dressings were removed. There is no apparent injury to her arm.
[2022-08-07] MEDS: clonazePAM 0.5mg tablet PO PRN ×2 (03:16→10:09)
[2022-08-07] MEDS: ibuprofen tablet 400 MG TABLET PO PRN (03:16)
--- NOTE | 2022-08-07 05:11 | NUR ---
The patient is awake. Some periods of agitaton
[2022-08-07] MEDS: multivitamins, therapeutics tablet PO SCH (07:04)
[2022-08-07] MEDS: ziprasidone 20mg capsule PO SCH (07:04)
[2022-08-07] MEDS: lamoTRIgine 100mg tablet PO SCH (07:04)
[2022-08-07] MEDS: clonazePAM 0.5mg tablet PO SCH ×2 (07:04→12:32)
[2022-08-07] MEDS: lactobacillus rhamnosus 10,000 MMU CELLS/CAPSULE PO SCH (07:04)
[2022-08-07] MEDS: sennosides 8.6mg tablet PO SCH (07:04)
[2022-08-07] MEDS: atorvastatin 10mg tablet PO SCH (07:04)
[2022-08-07] MEDS: ferrous sulfate 325mg tablet PO SCH (07:04)
[2022-08-07] MEDS: ascorbic acid 500mg tablet PO SCH (07:07)
[2022-08-07] MEDS: vortioxetine HBr tablet 5 MG TABLET PO SCH (07:07)
[2022-08-07] MEDS: nystatin 15 GM powder TP SCH ×2 (08:00→12:39)
--- NOTE | 2022-08-07 08:30 | NUR ---
Pt. awake and eating breakfast at bedside. Sitter next to pt.
[2022-08-07] MEDS: HYDROcodone/acetaminophen 5mg/325mg tablet PO PRN (10:13)
--- NOTE | 2022-08-07 10:13 | NUR ---
Pt. c/o of bilateral arm pain. Pt. also becoming agitated and yelling, "I want out" Pt. given [place] and Klonopin prn.
[2022-08-07] MEDS ORDERED: nicotine 7mg patch - 24hr TD ONE (10:15)
--- NOTE | 2022-08-07 10:30 | NUR ---
Pt. showered with assistance of aldo.
--- NOTE | 2022-08-07 12:30 | NUR ---
Pt.'s face bandage changed per wound care orders. Pt. eating lunch.
[2022-08-07] MEDS ORDERED: OXYC-145 PO (12:35)
--- NOTE | 2022-08-07 13:00 | NUR ---
Issue arose with pt.'s klonopin and [place]. RN clarified klonopin order with provider and pt. to be discharged on Percocet 5mg BID PRN instead of [place] 5/325 since according to [facility] pharmacy [place] 5/325 is on back order.
--- NOTE | 2022-08-07 13:30 | NUR ---
RN authorized by ER detasseling crew supervisor Marisa to use CAT transport to transport pt. to [facility].
[2022-08-07] MEDS ORDERED: CLON-528 PO (14:04)
[2022-08-07] MEDS ORDERED: HYDR-3965 PO ×2 (14:04→14:06)
[2022-08-07] MEDS ORDERED: HYDR-3972 PO (14:07)
[2022-08-07 14:21] VITALS: BP 118/84
== END 2022-08-07 13:55 ==
LOC: ER 02:24
DX: F70 Mild intellectual disabilities (principal); Z20.822 Contact with and (suspected) exposure to COVID-19; E78.00 Pure hypercholesterolemia, unspecified; I10 Essential (primary) hypertension; F32.A Depression, unspecified; F20.9 Schizophrenia, unspecified; Z85.9 Personal history of malignant neoplasm, unspecified; Z79.899 Other long term (current) drug therapy
CPT/HCPCS: 36415; 36600; 80053; 80061; 80164; 80305; 80320; 81001; 81003; 81025; 82140; 82550; 82728; 82803; 82948; 83036; 83540; 83605; 83735; 83880; 84145; 84443; 85018; 85025; 85045; 87040; 87077; 87088; 87186; 87502; 87503; 87635; 87811; 96361; 96365; 96366; 96367; 96372; 96375; 96376; 99285; C9803; J1200; J1630; J2060; 94760; A6449